=== PATIENT | male | born 1940 | race Caucasian/White ===

== ENCOUNTER 2016-03-10 15:33 | Inpatient (IN) | payer OTHER, MEDICAID ==
[~2016-03-10] VITALS: Ht 185.4 cm; Wt 106.5 kg
[~2016-03-10 15:33] MED LIST: /HCTZ25TA PO; /LABE20TA PO; /TIOT18INH INH; /WARF25TA; /WARF25TA OR; ACET-71 PO; ACET30TAB PO; ALBU17IN2 INH; ALBU83IN INH; AMMONIUM LACTATE 12%; ASCO500T PO; ASPI81TA45; ASPI81TA7 OR; ASPI81TA7 PO; ASPI81TA85 PO; BENA25CA4 PO; CART240C OR; CATA0.1T OR; CATA0.1T PO; CLOBETASOL 0.05%; CODEINE PO; COLC0.6T; COMPLETE PO; DIAB5TAB; DIAB5TAB PO; DULC10SU2 PR; DULC5TAB PO; FERR325T3 PO; FORMOTEROL; FURO20TA2 PO; GLIP10TA6 PO; GLUC1000 PO; GLUC1INJ11 SC; GLUC4CHW PO; GLYB5TA PO; HYDR-4266 PO; HYDR100T13 PO; HYDR12.55 PO; HYDR1CAP25 PO; HYDR25TA7; INSUDET SC; INSUH10VL SC; INSULANT SC; LABE20TAB PO; LASI20TA OR; LEVA500T PO; LOPI600T PO; LOSA50TA20 PO; MIRA3350 PO; MIRALEX; NIFE60TA3 PO; NIFE60TA4; NIFE60TA6 PO; OMEP20CA3 PO; PAME10CA PO; PERC5TAB8; PERF20NE2 INH; PRED10TA PO; PRIL20CA PO; PROV90AE; PULM0.5S INH; SENN8.6T5; SENO8.6T10 PO; SIMV40TA2; SIMV40TA2 PO; SITA50TAB OR; SPIR1CAP INH; SYMB16INH INH; SYMB80AE INH; TERA2CAP PO; TERA5CA OR; TERA5CA PO; TYLE-18 PO; TYLE1TAB5 PO; TYLE325T5 PO; TYLENOL PO; ULOR80TA PO; VITA100041 PO; VITA500C24 PO; VITAMIN PO; VITMTA PO; WARF-18 PO; ZOCO20TA; ZOCO20TA PO; ZOFR40IN IV; dextrose 50% IV; duoneb NEB; mometasone furoate; proventil neb NEB
[2016-03-10] MEDS ORDERED: DEXTROSE 50% 50 ML SYRINGE As Ordered ONE ×3 (15:47→21:40)
[2016-03-10] MEDS ORDERED: ONDANSETRON 4MG/2ML VIAL (J2405) As Ordered ONE (16:31)
[2016-03-10 16:34] LABS: BASO # 0.1 K/mm3 (0.0-0.2); BASO % 1.1 % (0.0-1.0); EOS # 0.4 K/mm3 (0.0-0.50); LARGE UNSTAINED CELL # 0.2 K/mm3 (0.0-0.4); LARGE UNSTAINED CELL % 1.5 % (0.0-4.0); LYMPH # 1.1 K/mm3 (1.5-4.5); LYMPH % 8.5 % (24.0-44.0); MEAN CORPUSCULAR HEMOGLOBIN 26.7 pg (27.0-33.0); MEAN CORPUSCULAR HGB CONC 31.6 g/dl (32.0-36.5); MEAN CORPUSCULAR VOLUME 84.4 fl (80.0-96.0); MONO # 0.5 K/mm3 (0.0-0.8); MONO % 4.7 % (0.0-5.0); NEUTROPHILS # 9.1 K/mm3 (1.8-7.7); NEUTROPHILS % 80.3 % (36.0-66.0); PLATELET COUNT, AUTOMATED 267 k/mm3 (150-450); RED CELL DISTRIBUTION WIDTH 16.4 % (11.5-14.5); WHITE BLOOD COUNT 11.3 K/mm3 (4.0-10.0)
[2016-03-10 16:41] LABS: CALCIUM LEVEL 8.6 MG/DL (8.8-10.2); CREATININE FOR GFR 3.15 MG/DL (0.70-1.30); GLOMERULAR FILTRATION RATE 20.5 (>42); POTASSIUM SERUM 4.6 MEQ/L (3.5-5.1)
[2016-03-10] MEDS ORDERED: GLIP10TA6 PO (18:12)
[2016-03-10] MEDS ORDERED: SIMV20TA2 PO (18:12)
[2016-03-10] MEDS ORDERED: FERR325T3 PO (18:12)
[2016-03-10] MEDS ORDERED: COLC1TAB13 PO (18:12)
[2016-03-10] MEDS ORDERED: ACET650T2 PO (18:12)
[2016-03-10] MEDS ORDERED: ALBU83IN INH (18:12)
[2016-03-10] MEDS ORDERED: FURO20TA2 PO (18:12)
[2016-03-10] MEDS ORDERED: FURO40TA2 PO (18:12)
[2016-03-10] MEDS ORDERED: NOVOINJ3 SC (18:12)
[2016-03-10] MEDS ORDERED: SYMB16INH INH (18:14)
[2016-03-10] MEDS ORDERED: VITA500T88 PO (18:14)
[2016-03-10] MEDS ORDERED: SPIR1CAP INH (18:14)
[2016-03-10] MEDS ORDERED: ALBU17IN2 INH (18:14)
[2016-03-10] MEDS ORDERED: HYDR50CA2 PO (18:15)
[2016-03-10] MEDS ORDERED: HYDR12CA PO (18:16)
[2016-03-10] MEDS ORDERED: LANTINJ4 SC (18:20)
--- NOTE | 2016-03-10 19:01 | REP ---
Abdominal series: Four views. History: Abdominal pain. Findings: AP chest radiograph shows no evidence of infiltrate or free subdiaphragmatic air. Heart is at the upper range of normal in size. The aorta is calcific and tortuous. Supine views of the abdomen demonstrate air and fluid dilation of the stomach. There is some air and stool in a nondistended colon. No small bowel dilation is seen. Cross-table lateral view shows no evidence of free air. A large air fluid level is seen in the stomach. Impression: Gas and fluid dilated stomach. Otherwise negative abdominal series. Postoperative changes on the right. Signed by Naresh Madden MD 03/10/2016 06:53 P
--- NOTE | 2016-03-10 19:23 | ECGEPIP ---
Stationary ECG Study [facility] - ED Test Date: 2016-03-10 Pat Name: DANDRE HUSSEIN Department: Room: - Gender: M Net Architect: brant : 1940 Requested By: Blade Lane Order Number: [id number] Reading MD: Blade Gomez Measurements Intervals [place] Rate: 85 P: 58 CA: 206 QRS: -70 QRSD: 157 T: 68 QT: 422 QTc: 504 Interpretive Statements SINUS RHYTHM LAD RIGHT BUNDLE BRANCH BLOCK LEFT ANTERIOR FASCICULAR BLOCK MINIMAL VOLTAGE CRITERIA FOR LVH, CONSIDER NORMAL VARIANT SIMILAR TO 09/30/15 Electronically Signed On 03-10-2016 19:23:12 EST by Blade Gomez
[2016-03-10] MEDS ORDERED: D10W 1,000 ML IV SCH (19:30)
[2016-03-10] MEDS: D10W 1,000 ML IV SCH (20:00)
[2016-03-10] MEDS ORDERED: GLUCAGON FOR INJ 1 MG VIAL (J1610) SC PRN (20:00)
[2016-03-10] MEDS ORDERED: GLUCOSE 4 GM CHEW TABLET PO PRN (20:00)
[2016-03-10] MEDS ORDERED: ONDANSETRON 4 MG TAB (S0181) PO PRN (20:00)
[2016-03-10] MEDS ORDERED: PERCOCET 5MG/325MG TAB PO PRN (20:00)
[2016-03-10] MEDS ORDERED: DEXTROSE 50% 50 ML SYRINGE IV PRN (20:00)
--- NOTE | 2016-03-10 20:14 | HPEPDOC ---
Medical History and Physical Date of Admission 03/10/2016 History and Physical HISTORY AND PHYSICAL Date of admission: 03/10/2016 PCP: CYNDY Chief complaint: Low blood sugar HPI: 75-year-old male with chronic kidney disease stage III, chronic lung disease from occupational exposure with 3 L home O2, hypertension, gout, coronary artery disease with PA, diastolic CHF, diabetes mellitus type 2, BPH, gastritis, hyperlipidemia, history of pulmonary embolism, history of GI bleed, sleep apnea not on CPAP who presented to the ER because of low blood sugars. He states that 3 days ago he was in his normal health. Yesterday, he began vomiting and noticed that his sugars were in the 60s. Today he has not been vomiting, but he states that he has still been nauseated. He also reports diarrhea for the last 2 days. He states that he did not take any of his insulin yesterday or today, but he did still take his glipizide yesterday. His glucose was initially 38, and even after receiving dextrose, he is still persistently in the 60s and had to be started on D5. I have just been notified by the nursing staff, but despite being on D5, his glucose is 62. He denies any recent sick contacts Past medical history: chronic kidney disease stage III, chronic lung disease from occupational exposure with 3 L home O2, hypertension, gout, coronary artery disease with PA, diastolic CHF, diabetes mellitus type 2, BPH, gastritis , hyperlipidemia, history of pulmonary embolism, history of GI bleed, sleep apnea not on CPAP Past surgical history: Appendectomy with partial colectomy, cholecystectomy, bilateral knee replacement Family history: Coronary artery disease and PA Social history: The patient currently lives with his . He quit smoking approximately 40 years ago. He denies any alcohol or drug use. Allergies: No known drug allergies Review of systems: General: Negative for fever and chills. Eyes: Negative for vision changes and ocular discharge ENT: Positive for sore throat. Negative for nose bleed. Cardiovascular: Negative for chest pain and palpitations. Respiratory: Positive for shortness of breath. Negative for cough GI: Positive for nausea, vomiting, diarrhea Musculoskeletal: Positive for chronic back pain Skin: Negative for rash Neuro: Positive for dizziness. Negative for headache Psych: Negative for depression and suicidal ideation Endocrine: Negative for polyuria : Negative for dysuria Heme: Negative for bruising and bleeding Home meds: See below Physical exam: Vital signs: Blood pressure 127/61, HR 84, temperature 97.4, O2 sat 99% on 3 L, RR 18 Gen.: awake, alert, no acute distress Eyes: Extraocular movements intact, normal sclera ENT: Moist mucous membranes Cardiovascular: RRR, no murmurs rubs or gallops Lungs: clear to auscultation bilaterally, no rales, rhonchi, or wheeze Abdomen: Soft, normal BS, distended, diffuse TTP Musculoskeletal: normal range of motion Extremities: No peripheral edema Neuro: alert and oriented 3, normal speech, no focal deficits Psych: Normal mood with congruent affect Labs and radiology: See below BUN 55, creatinine 3.15 White count 11.3 Hemoglobin 9.9 Assessment and plan: 75-year-old male with chronic kidney disease stage III, chronic lung disease from occupational exposure with 3 L home O2, hypertension, gout, coronary artery disease with PA, diastolic CHF, diabetes mellitus type 2, BPH, gastritis , hyperlipidemia, history of pulmonary embolism, history of GI bleed, sleep apnea not on CPAP who presented to the ER because of low blood sugars. He is admitted with hypoglycemia, as well as acute on chronic kidney disease and dehydration. 1. Acute on chronic kidney disease stage III: The patient's baseline creatinine is around 2. His creatinine upon admission is greater than 3. I suspect that this is prerenal secondary to his diarrhea and vomiting. We'll hydrate him and recheck his creatinine in the morning. We will hold his home Lasix, hydrochlorothiazide, ARB. 2. Diarrhea and vomiting: I suspect that this is secondary to a viral illness. The patient is afebrile. He is a mildly elevated white count at 11.3, but upon review of the EMR, he is noted to always have a mildly elevated white count in the 11-13 range. We will check a GI panel and blood cultures. The patient will be on a full liquid diet, advancing as tolerated. 3. Hypoglycemia: Likely secondary to patient's decreased by mouth intake with his recent diarrhea and vomiting, coupled with the fact that he has still been taking his glipizide and has impaired renal function. We are currently holding his glipizide and insulin. Despite being on D5 in the ER, his glucose is still in the 60s. We will transition the patient to D10W at 75 mL an hour, and continue to check regular fingersticks. 4. Chronic lung disease from occupational exposure with 3 L home O2: The patient is currently stable on his home oxygen. We will continue home Symbicort , albuterol, Spiriva. 5. Hypertension: The patient has hypertension that is noted to be extremely difficult to control. We will continue the patient's home clonidine, hydralazine , labetalol, Procardia, and terazosin. Given his impaired renal function, we'll be holding his home glipizide, hydrochlorothiazide, and ARB. 6. Coronary artery disease with PA: The patient does not have any chest pain currently. We'll continue the patient's home beta nel and aspirin. 7. Chronic diastolic CHF: The patient is currently compensated. Given his dehydration, we'll be holding his home Lasix. We will have to monitor his fluid status closely so as not to tip him into failure. 8. Diabetes mellitus type 2: Currently holding the patient's home glipizide, long acting insulin, and short acting insulin. We will be checking fingersticks with meals and at bedtime. When the patient's glucoses began to rebound, we can begin to add back sliding scale insulin, as well as home medications. 9. Anemia: This appears to be a chronic issue, and I suspect that it is at least in part secondary to his chronic renal disease. The patient's baseline hemoglobin appears to be in the 9-10 range. He is currently at his baseline. We will continue to monitor. DVT prophylaxis: SCDs Dispo: full code CODE STATUS: Admit as an inpatient to the service of Dr. Cruz Vital Signs see above Laboratory Data Labs 24H Laboratory Tests 2 03/10/16 15:42: Bedside Glucose (Misc Panel) 37*L 03/10/16 15:48: Anion Gap 12, White Blood Count 11.3H, Red Blood Count 3.70L, Hemoglobin 9.9L, Hematocrit 31.2L, Mean Corpuscular Volume 84.4, Mean Corpuscular Hemoglobin 26.7L, Mean Corpuscular Hemoglobin Concent 31.6L, Red Cell Distribution Width 16.4H, Platelet Count 267, Neutrophils (%) (Auto) 80.3H, Lymphocytes (%) (Auto) 8.5L, Monocytes (%) (Auto) 4.7, Eosinophils (%) (Auto) 4.0H, Basophils (%) (Auto ) 1.1H, Neutrophils # (Auto) 9.1H, Lymphocytes # (Auto) 1.1L, Monocytes # (Auto ) 0.5, Eosinophils # (Auto) 0.4, Basophils # (Auto) 0.1, Blood Urea Nitrogen 55H , Creatinine 3.15H, Sodium Level 140, Potassium Level 4.6, Chloride Level 103, Carbon Dioxide Level 25, Calcium Level 8.6L, Glomerular Filtration Rate 20.5L, Large Unclassified Cells # 0.2, Large Unclassified Cells % 1.5 03/10/16 15:57: Bedside Glucose (Misc Panel) 147H 03/10/16 16:58: Bedside Glucose (Misc Panel) 68L 03/10/16 17:38: Bedside Glucose (Misc Panel) 48L 03/10/16 18:28: Bedside Glucose (Misc Panel) 91 03/10/16 19:04: Bedside Glucose (Misc Panel) 62L 03/10/16 19:48: Bedside Glucose (Misc Panel) 58L CBC/BMP Laboratory Tests 03/10/16 15:48 Calcium Level 8.6 L, Red Blood Count 3.70 L, Mean Corpuscular Volume 84.4, Mean Corpuscular Hemoglobin 26.7 L, Mean Corpuscular Hemoglobin Concent 31.6 L, Red Cell Distribution Width 16.4 H, Neutrophils (%) (Auto) 80.3 H, Lymphocytes (%) ( Auto) 8.5 L, Monocytes (%) (Auto) 4.7, Eosinophils (%) (Auto) 4.0 H, Basophils ( %) (Auto) 1.1 H, Neutrophils # (Auto) 9.1 H, Lymphocytes # (Auto) 1.1 L, Monocytes # (Auto) 0.5, Eosinophils # (Auto) 0.4, Basophils # (Auto) 0.1 FSBS Laboratory Tests Test 03/10/16 15:42 03/10/16 15:57 03/10/16 16:58 03/10/16 17:38 Range/Units Bedside Glucose (Misc Panel) 37 147 68 48 83-110 MG/DL Test 03/10/16 18:28 03/10/16 19:04 03/10/16 19:48 Range/Units Bedside Glucose (Misc Panel) 91 62 58 83-110 MG/DL Home Medications Scheduled Acetaminophen (Acetaminophen ER) 650 Mg Tab 650 MG PO BID Albuterol Sulfate (Albuterol Sulfate) 2.5 Mg/3 Ml Nebu 2.5 MG INH TID Ascorbic Acid (Vitamin C) 500 Mg Tab 500 MG PO DAILY Aspirin (Aspirin) 81 Mg Tab 81 MG PO DAILY Budesonide/Formoterol (Symbicort 160-4.5 Mcg/Act) 60 Puff/Inhaler Aers 2 PUFF INH BID Cholecalciferol (Vitamin D3) 1,000 Unit Cap 1,000 UNIT PO DAILY Clonidine Hydrochloride (Catapres) 0.1 Mg Tab 0.1 MG PO BID Ferrous Sulfate (Ferrous Sulfate) 325 Mg Tab 325 MG PO BID Furosemide (Furosemide) 20 Mg Tab 20 MG PO 4XWK TUES,TH,FRI,SUN Furosemide (Furosemide) 40 Mg Tab 40 MG PO 3XW MON,WED,FRI Glipizide (Glipizide) 10 Mg Tab 10 MG PO TID Hydralazine HCl (Hydralazine HCl) 25 Mg Tab 25 MG PO BID Hydrochlorothiazide (Hydrochlorothiazide) 12.5 Mg Cap 12.5 MG PO DAILY Hydroxyzine Pamoate (Hydroxyzine Pamoate) 50 Mg Cap 50 MG PO QHS Insulin Aspart (Novolog Flexpen) 100 Unit/Ml Inj 12 UNITS SC TID Insulin Glargine (Lantus Solostar) 100 Unit/Ml Inj 36 UNITS SC QHS Labetalol HCl (Labetalol HCl) 200 Mg Tab 200 MG PO BID Losartan Potassium (Losartan Potassium) 50 Mg Tab 50 MG PO DAILY Multivitamins *[facility] STOCKED* (Thera M Plus *[facility] STOCKED*) 1 Tab Tab 1 TAB PO DAILY Nifedipine (Nifedipine ER) 60 Mg Tab 120 MG PO DAILY Omeprazole (Omeprazole) 20 Mg Cap 20 MG PO DAILY Simvastatin (Simvastatin) 20 Mg Tab 20 MG PO QHS Terazosin HCl (Terazosin HCl) 5 Mg Cap 5 MG PO QHS Tiotropium Organ Monohydrate (Spiriva Handihaler) 18 Mcg Cap 1 INHALATION INH DAILY Scheduled PRN (Colchicine) 0.6 Mg Tab 0.6 MG PO PRN PRN PRN GOUT Acetaminophen/Codeine (Tylenol/Codeine #3) Tab 1 TAB PO Q6H PRN PRN PAIN Albuterol Sulfate (Proventil Hfa) 167 Puff/6.7 Gm Aers 2 PUFFS INH Q4H PRN PRN SHORTNESS OF BREATH Allergies Coded Allergies: No Known Allergies (Verified Allergy, Unknown, 06/02/09) BONNY PAULA Mar 10, 2016 20:14
[2016-03-10] MEDS: SYMBICORT 160/4.5MCG INHALER 6GM INH SCH ×2 (21:00→23:58)
--- NOTE | 2016-03-10 22:14 | EDDOCDS ---
Nurse's Notes [facility] Name: Dandre Hussein Age: 75 yrs Sex: Male : 1940 Arrival Date: 03/10/2016 Time: 15:33 Bed 10 Private MD: Diagnosis: Dehydration;Other viral enteritis;Acute kidney failure;Drug-induced hypoglycemia without coma-glipizide;Type 2 diabetes mellitus Presentation: 03/10 15:51 Presenting complaint: EMS states: ems called for low blood sugars - found pt with blood pml glucose of 71 - pt states he is a type 1 diabetic and has had 2 days of diarrhea and lower than normal blood glucose. EMS unable to establish IV access, PO glucose solution with no change, glucose 38 on arrival to [facility]. pt alert and oriented. Adult Sepsis Screening: The patient does not have new or worsening altered mentation. Patient's respiratory rate is less than 22. Systolic blood pressure is greater than 100. Patient has a qSOFA score of 0- Negative Sepsis Screen. Suicide/Homicide risk assessment- the patient denies having any suicidal and/or homicidal ideations and does not present with any other emotional, behavioral or mental health complaints. 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 Transition of care: patient was not received from another setting of care. 15:51 Acuity: MONA Level 3 pml 15:51 Method Of Arrival: Ambulance pml Triage Assessment: 15:51 General: Appears in no apparent distress, comfortable, Behavior is appropriate for age, pml cooperative. Pain: Denies pain. The patient is triaged at the bedside. See Assessment in Nurses Notes section of ED record. Neurological: Level of Consciousness is awake, alert, Oriented to person, place, time. Cardiovascular: Capillary refill < 3 seconds Rhythm is sinus rhythm No ectopy. Respiratory: Airway is patent Respiratory effort is even, unlabored, Respiratory pattern is regular, symmetrical. GI: Abdomen is non- distended obese, Abd is soft X 4 quads Abd is tender to palpation in left upper quadrant and left lower quadrant Reports diarrhea, tolerance of fluids, x 4 over last 2 days. Derm: Skin is pink, warm & dry. Historical: - Allergies: no known allergies; - Home Meds: 1. Oxygen 3LNC Continuous 2. Tylenol Arthritis Pain 650 mg oral TbER 1 tabs twice a day (Last dose: 03/10/2016) 3. albuterol sulfate 2.5 mg /3 mL (0.083 %) Inhl nebu 3 mL 3 times per day (Last dose: 03/10/2016 12:00) 4. aspirin 81 mg Oral TbEC 1 tab once daily (Last dose: 03/10/2016) 5. clonidine HCl 0.1 mg Oral tab 1 tab 2 times per day (Last dose: 03/10/2016) 6. colchicine 0.6 mg Oral tab as needed 7. Complete 50+ oral 1 tab daily (Last dose: 03/10/2016) 8. ferrous sulfate 325 mg (65 mg iron) Oral tab twice a day (Last dose: 03/10/2016) 9. furosemide 40 mg oral tab 1 tab Mon, Wed, Fri (Last dose: 03/08/2016) 10. hydralazine 25 mg Oral tab 1 tab 2 times per day (Last dose: 03/10/2016) 11. hydrochlorothiazide 12.5 mg Oral cap 1 cap once daily (Last dose: 03/10/2016) 12. hydroxyzine pamoate 50 mg oral cap 1 cap nightly (Last dose: 03/09/2016) 13. labetalol 200 mg Oral tab 1 tab 2 times per day (Last dose: 03/10/2016) 14. losartan 50 mg oral tab 1 tab once daily (Last dose: 03/10/2016) 15. nifedipine 60 mg Oral tr24 2 tabs once daily (Last dose: 03/10/2016) 16. omeprazole 20 mg Oral cpDR 1 cap once daily (Last dose: 03/10/2016) 17. Proventil 90 mcg/actuation inhalation aero 2 puffs as needed 18. simvastatin 40 mg Oral tab 0.5 tab nightly (Last dose: 03/09/2016) 19. Spiriva with HandiHaler 18 mcg Inhl CpDv 1 cap once daily (Last dose: 03/10/2016) 20. Symbicort 160-4.5 mcg/actuation inhalation HFAA 2 puffs 2 times per day (Last dose: 03/10/2016) 21. terazosin 5 mg oral cap nightly (Last dose: 03/09/2016) 22. acetaminophen-codeine 300-60 mg Oral tab 1 tab as needed 23. Vitamin C 500 mg Oral tab 500 mg daily (Last dose: 03/10/2016) 24. Vitamin D3 1,000 unit oral tab daily (Last dose: 03/10/2016) 25. glipizide 10 mg Oral tab three times a day (Last dose: 03/10/2016) 26. Lantus 100 unit/mL Sub-Q soln 36 unit daily (Last dose: 03/08/2016) 27. Novolog 100 unit/mL Sub-Q soln 12 unit three times a day (Last dose: 03/08/2016) - PMHx: CHF; COPD; Diabetes - IDDM: controlled; GERD; Gout; High Cholesterol; Hypertension; - PSHx: Colon Resection; Appendectomy; Cholecystectomy; bilateral knee replacements; - The history from nurses notes was reviewed: and I agree with what is documented. - Social history: Smoking status: Patient states former smoker of tobacco. No barriers to communication noted, The patient speaks fluent Hungarian, Speaks appropriately for age. - Family history: Not pertinent. - : The pt / caregiver states he / she is not on anticoagulants. Home medication list is obtained from the patient. - Hospitalizations: : No recent hospitalization is reported. - Exposure Risk Screening:: None identified. - Immunization history:: All immunizations up-to-date. - Social history:: the patient is a former smoker, the patient formerly used alcohol. Screenin:54 Screening information is obtained from the patient. Fall risk: No risks identified. pml Assistance ADL's: requires no assistance with activities of daily living. Abuse/DV Screen: The patient / caregiver reports he/she is: not in a situation that causes fear, pain or injury. Nutritional screening: No deficits noted. Advance Directives: Currently, there is no health care proxy. home support is adequate. Assessment: 15:54 General: see triage note. pml 17:02 General: Appears in no apparent distress, Behavior is appropriate for age, cooperative. pml Pain: Denies pain. Neurological: Level of Consciousness is awake, alert, Oriented to person, place, time. Cardiovascular: Capillary refill < 3 seconds Rhythm is sinus rhythm No ectopy. Respiratory: Airway is patent Respiratory effort is even, unlabored. Derm: Skin is pink, warm & dry. 17:02 General: blood glucose 68 - MD Jason snider, PO orange juice provided as per MD Tirado pml orders. 17:35 General: reopeat blood glucose 48 - MD Chafe aware, new orders obtained and pml administered as indicated on emar. 18:29 General: Hospitalist in to assess pt. ld5 19:16 General: Appears in no apparent distress, comfortable, Behavior is cooperative, mlc pleasant, Reports fatigue for. Pain: Denies pain. Neurological: Level of Consciousness is awake, alert, Oriented to person, place, time. Respiratory: Airway is patent Respiratory effort is even, unlabored, Respiratory pattern is regular. Derm: Skin is pink, warm & dry. 19:20 General: Dr. Iraheta made aware of FS of 62. Order obtained. . mlc 19:31 Reassessment: Patient appears in no apparent distress at this time. Patient denies pain mlc at this time. IV fluids infusing per order . 19:50 Reassessment: Patient appears in no apparent distress at this time. Patient denies pain mlc at this time. no changes since prior . 20:30 Reassessment: Dr. Iraheta notified of FS of 60. pt given orange juice. . mlc 21:03 Reassessment: pt repositioned in bed, pt c/o of feeling uncomfortable in bed. pt mlc refuses to sit up in bed due to back pain. pt refusing to eating jello. . 21:18 Reassessment: pt given OJ, drinking juice. pt offers no complaints. . mlc 21:44 Reassessment: Patient appears in no apparent distress at this time. Patient denies pain mlc at this time. pt offers no complaints. pt medicated per order. resp easy/unlabored. IV fluids infusing per order. 22:07 General: Appears in no apparent distress, comfortable, Behavior is cooperative. mlc Neurological: Level of Consciousness is awake, alert, Oriented to person, place, time. Respiratory: Airway is patent Respiratory effort is even, unlabored, Respiratory pattern is regular. Derm: Skin is pink, warm & dry. Vital Signs: 15:42 BP 124 / 71 (auto/); pml 15:44 Pulse 86 MON; Pulse Ox 92% ; pml 15:45 BP 124 / 71; Pulse 88; Resp 18; Temp 97.4(O); Pulse Ox 96% on 3 lpm NC; Pain 0/10; nb2 15:55 Weight 113.4 kg; Height 6 ft. 1 in. (185.42 cm); pml 15:57 Pulse 84 MON; Pulse Ox 98% ; pml 15:57 BP 142 / 64 (auto/); pml 16:12 Pulse 84 MON; Pulse Ox 99% ; pml 16:12 BP 144 / 58 (auto/); pml 16:27 Pulse 82 MON; Pulse Ox 99% ; pml 16:27 BP 141 / 65 (auto/); pml 16:42 Pulse 82 MON; Pulse Ox 99% ; pml 16:42 BP 133 / 68 (auto/); pml 16:57 Pulse 88 MON; Pulse Ox 100% ; pml 16:57 BP 133 / 62 (auto/); pml 17:12 Pulse 84 MON; Pulse Ox 99% ; pml 17:12 BP 143 / 68 (auto/); pml 17:35 Pulse 86 MON; Pulse Ox 98% ; pml 17:36 BP 138 / 63 (auto/); pml 17:42 Pulse 82 MON; Pulse Ox 99% ; pml 17:42 BP 138 / 65 (auto/); pml 17:57 Pulse 84 MON; Pulse Ox 100% ; pml 17:57 BP 126 / 53 (auto/); pml 18:12 Pulse 78 MON; Pulse Ox 100% ; pml 18:12 BP 127 / 58 (auto/); pml 18:27 Pulse 84 MON; Pulse Ox 100% ; pml 18:27 BP 127 / 61 (auto/); pml 18:42 Pulse 82 MON; Pulse Ox 99% ; pml 18:42 BP 127 / 58 (auto/); pml 18:57 Pulse 80 MON; Pulse Ox 99% ; mlc 18:57 BP 120 / 59 (auto/); mlc 19:12 BP 117 / 58 (auto/); mlc 19:12 Pulse 78 MON; Pulse Ox 99% ; mlc 19:27 Pulse 82 MON; Pulse Ox 100% ; mlc 19:27 BP 118 / 56 (auto/); mlc 19:42 BP 111 / 55 (auto/); mlc 19:42 Pulse 82 MON; Pulse Ox 99% ; mlc 19:57 Pulse 78 MON; Pulse Ox 100% ; mlc 19:57 BP 118 / 58 (auto/); mlc 20:12 BP 117 / 56 (auto/); mlc 20:12 Pulse 80 MON; Pulse Ox 100% ; mlc 20:27 Pulse 78 MON; Pulse Ox 99% ; mlc 20:27 BP 112 / 53 (auto/); mlc 21:01 Pulse 80 MON; Pulse Ox 100% ; mlc 21:13 BP 110 / 53 (auto/); mlc 21:13 Pulse 88 MON; Pulse Ox 99% ; mlc 21:57 BP 131 / 61 (auto/); mlc 21:57 Pulse 80 MON; Pulse Ox 99% ; mlc 22:10 BP 125 / 59; Pulse 87; Resp 18; Temp 97.1; Pulse Ox 99% on 2 lpm NC; Pain 0/10; mlc 15:55 Body Mass Index 32.98 (113.40 kg, 185.42 cm) pml Vitals: 15:45 Log In Time N/A - ambulance arrival. nb2 ED Course: 15:34 Patient visited by Nayeli Quiñonez PCA. ar3 15:34 Patient moved to Waiting ar3 15:41 Maxine Gordon,RN is Primary Nurse. ar3 15:42 Patient moved to 10 ar3 15:45 Placed in gown. Bed in low position. Call light in reach. Side rails up X2. Cardiac nb2 monitor on. Pulse ox on. NIBP on. 15:46 Patient visited by Nita Hand. nb2 15:52 Triage Initiated pml 15:54 The patient / caregiver is instructed regarding the plan of care and ED course. pml 15:54 Inserted peripheral IV: 20gauge IV in left antecubital area and blood collected. pml Patient tolerated the procedure well. 15:55 Patient visited by Maxine Gordon RN. pml 16:00 Blade Gomez MD is Attending Physician. pc 16:09 Fingerstick Blood Sugar Sent. pml 16:27 Patient visited by Blade Gomez MD. pc 16:50 EKG done. (by ED staff). Reviewed by Blade Gomez MD. nb2 17:03 Patient visited by Maxine Gordon RN. pml 17:26 Patient visited by Nita Hand. nb2 17:26 Patient visited by Nita Hand. nb2 17:50 Patient visited by Maxine Gordon RN. pml 18:30 Patient visited by Simona White RN. ld5 18:50 Lorna Iraheta is Hospitalizing Provider. pc 18:51 Patient visited by Maxine Gordon,CECILIO. pml 19:00 Ronit Martinez,CECILIO is Primary Nurse. mlc 19:03 Patient visited by Alexys Pascual PCA. kb5 19:12 Written Provider Order was scanned into [employer] and attached to record. ml3 19:14 Abdomen, Flat\E\Upright,PA Chest Returned. EDMS 19:21 Patient visited by Ronit Martinez RN. mlc 19:32 Patient visited by Ronit Martinez RN. mlc 19:49 EKG-ADULT Returned. EDMS 19:51 Patient visited by Ronit Martinez RN. mlc 20:32 [facility] [place] was scanned into [employer] and attached to record. ks16 21:03 Patient visited by Ronit Martinez RN. mlc 21:45 Patient visited by Ronit Martinez RN. mlc 21:45 No procedures done that require assistance. mlc 22:08 Patient visited by Ronit Martinez RN. mlc Administered Medications: 15:50 Drug: D50W 50 ml [dextrose 50 % in water (D50W) intravenous solution (50 mL)] Route: pml IVP; Site: left antecubital; 16:35 Drug: Ondansetron 4 mg [ondansetron HCl 2 mg/mL intravenous solution (2 mL)] Route: pml IVP; Site: left antecubital; 16:35 Drug: NS 0.9% 500 ml [sodium chloride 0.9 % injection solution] Route: IV; Rate: bolus; pml Site: left antecubital; 17:40 Drug: D50W 50 ml [dextrose 50 % in water (D50W) intravenous solution (50 mL)] Route: pml IVP; Site: left antecubital; 17:49 Drug: D5-NS 1000 ml [dextrose 5 % and 0.9 % sodium chloride intravenous solution] pml Route: IV; Rate: 100 mL/hr; Site: left antecubital; 19:31 Drug: D10 in Water 1000 ml [dextrose 10 % in water (D10W) intravenous solution] Route: mlc IV; Rate: 100 mL/hr; Site: left antecubital; 21:44 Drug: D50W 25 ml [dextrose 50 % in water (D50W) intravenous syringe (25 mL)] Route: mlc IVP; Site: left antecubital; Point of Care Testing: Blood Glucose: 18:29 Blood Glucose: 91 mg/dL; ld5 19:07 Blood Glucose: 62 mg/dL; mlc 19:50 Blood Glucose: 58 mg/dL; mlc 21:08 Blood Glucose: 51 mg/dL; mlc 21:37 Blood Glucose: 50 mg/dL; mlc 22:06 Blood Glucose: 88 mg/dL; mlc Ranges: Order Results: Lab Order: Fingerstick Blood Sugar; [facility] 03/10/16 15:42 Test: BEDSIDE GLUCOSE; Value: 37; Range: 83-110; Abnormal: Critical Low; Units: MG/DL; Status: F Lab Order: Fingerstick Blood Sugar; [facility] 03/10/16 15:57 Test: BEDSIDE GLUCOSE; Value: 147; Range: 83-110; Abnormal: Above high normal; Units: MG/DL; Status: F Lab Order: CBC with Diff; [facility] 03/10/16 15:48 Test: WHITE BLOOD COUNT; Value: 11.3; Range: 4.0-10.0; Abnormal: Above high normal; Units: K/mm3; Status: F Test: RED BLOOD COUNT; Value: 3.70; Range: 4.30-6.10; Abnormal: Below low normal; Units: M/mm3; Status: F Test: HEMOGLOBIN; Value: 9.9; Range: 14.0-18.0; Abnormal: Below low normal; Units: g/dl; Status: F Test: HEMATOCRIT; Value: 31.2; Range: 42.0-52.0; Abnormal: Below low normal; Units: %; Status: F Test: MEAN CORPUSCULAR VOLUME; Value: 84.4; Range: 80.0-96.0; Units: fl; Status: F Test: MEAN CORPUSCULAR HEMOGLOBIN; Value: 26.7; Range: 27.0-33.0; Abnormal: Below low normal; Units: pg; Status: F Test: MEAN CORPUSCULAR HGB CONC; Value: 31.6; Range: 32.0-36.5; Abnormal: Below low normal; Units: g/dl; Status: F Test: RED CELL DISTRIBUTION WIDTH; Value: 16.4; Range: 11.5-14.5; Abnormal: Above high normal; Units: %; Status: F Test: PLATELET COUNT, AUTOMATED; Value: 267; Range: 150-450; Units: k/mm3; Status: F Test: NEUTROPHILS %; Value: 80.3; Range: 36.0-66.0; Abnormal: Above high normal; Units: %; Status: F Test: LYMPH %; Value: 8.5; Range: 24.0-44.0; Abnormal: Below low normal; Units: %; Status: F Test: MONO %; Value: 4.7; Range: 0.0-5.0; Units: %; Status: F Test: EOS %; Value: 4.0; Range: 0.0-3.0; Abnormal: Above high normal; Units: %; Status: F Test: BASO %; Value: 1.1; Range: 0.0-1.0; Abnormal: Above high normal; Units: %; Status: F Test: LARGE UNSTAINED CELL %; Value: 1.5; Range: 0.0-4.0; Units: %; Status: F Test: NEUTROPHILS #; Value: 9.1; Range: 1.8-7.7; Abnormal: Above high normal; Units: K/mm3; Status: F Test: LYMPH #; Value: 1.1; Range: 1.5-4.5; Abnormal: Below low normal; Units: K/mm3; Status: F Test: MONO #; Value: 0.5; Range: 0.0-0.8; Units: K/mm3; Status: F Test: EOS #; Value: 0.4; Range: 0.0-0.50; Units: K/mm3; Status: F Test: BASO #; Value: 0.1; Range: 0.0-0.2; Units: K/mm3; Status: F Test: LARGE UNSTAINED CELL #; Value: 0.2; Range: 0.0-0.4; Units: K/mm3; Status: F Lab Order: MED Profile; SPEC'M 03/10/16 15:48 Test: GLUCOSE, FASTING; Value: 34; Range: 83-110; Abnormal: Critical Low; Units: MG/DL; Status: F Test: BLOOD UREA NITROGEN; Value: 55; Range: 7-18; Abnormal: Above high normal; Units: MG/DL; Status: F Test: CREATININE FOR GFR; Value: 3.15; Range: 0.70-1.30; Abnormal: Above high normal; Units: MG/DL; Status: F Test: GLOMERULAR FILTRATION RATE; Value: 20.5; Range: >42; Abnormal: Below low normal; Status: F Test: SODIUM LEVEL; Value: 140; Range: 136-145; Units: MEQ/L; Status: F Test: POTASSIUM SERUM; Value: 4.6; Range: 3.5-5.1; Units: MEQ/L; Status: F Test: CHLORIDE LEVEL; Value: 103; Range: 98-107; Units: MEQ/L; Status: F Test: CARBON DIOXIDE LEVEL; Value: 25; Range: 21-32; Units: MEQ/L; Status: F Test: ANION GAP; Value: 12; Range: 8-16; Units: MEQ/L; Status: F Test: CALCIUM LEVEL; Value: 8.6; Range: 8.8-10.2; Abnormal: Below low normal; Units: MG/DL; Status: F Test Note: ; Units are mL/min/1.73 m2 Chronic Kidney Disease Staging per NKF: Stage I & II GFR >=60 Normal to Mildly Decreased Stage III GFR 30-59 Moderately Decreased Stage IV GFR 15-29 Severely Decreased Stage V GFR <15 Very Little GFR Left ESRD GFR <15 on SITE LEADER Lab Order: Fingerstick Blood Sugar; [facility] 03/10/16 16:58 Test: BEDSIDE GLUCOSE; Value: 68; Range: 83-110; Abnormal: Below low normal; Units: MG/DL; Status: F Lab Order: Fingerstick Blood Sugar; [facility] 03/10/16 17:38 Test: BEDSIDE GLUCOSE; Value: 48; Range: 83-110; Abnormal: Below low normal; Units: MG/DL; Status: F Lab Order: Fingerstick Blood Sugar; [facility] 03/10/16 18:28 Test: BEDSIDE GLUCOSE; Value: 91; Range: 83-110; Units: MG/DL; Status: F Lab Order: Fingerstick Blood Sugar; [facility] 03/10/16 19:04 Test: BEDSIDE GLUCOSE; Value: 62; Range: 83-110; Abnormal: Below low normal; Units: MG/DL; Status: F Test Note: ; Doctor Notified Lab Order: Fingerstick Blood Sugar; [facility] 03/10/16 19:48 Test: BEDSIDE GLUCOSE; Value: 58; Range: 83-110; Abnormal: Below low normal; Units: MG/DL; Status: F Test Note: ; Doctor Notified Lab Order: Fingerstick Blood Sugar; SPEC'M 03/10/16 21:07 Test: BEDSIDE GLUCOSE; Value: 51; Range: 83-110; Abnormal: Below low normal; Units: MG/DL; Status: F Test Note: ; RN Notified Dr Order not to Draw Lab Order: Fingerstick Blood Sugar; SPEC'M 03/10/16 21:36 Test: BEDSIDE GLUCOSE; Value: 50; Range: 83-110; Abnormal: Below low normal; Units: MG/DL; Status: F Radiology Order: Abdomen, Flat\E\Upright,PA Chest Test: Abdomen, Flat\E\Upright,PA Chest REASON FOR EXAMINATION: Abdomen Pain; Abdominal series: Four views.; ; History: Abdominal pain.; ; Findings: AP chest radiograph shows no evidence of infiltrate or free; subdiaphragmatic air. Heart is at the upper range of normal in size. The aorta; is calcific and tortuous.; ; Supine views of the abdomen demonstrate air and fluid dilation of the stomach.; There is some air and stool in a nondistended colon. No small bowel dilation is; seen. Cross-table lateral view shows no evidence of free air. A large air fluid; level is seen in the stomach.; ; Impression:; ; Gas and fluid dilated stomach. Otherwise negative abdominal series.; Postoperative changes on the right.; ; ; Signed by; Naresh Madden MD 03/10/2016 06:53 P; Radiology Order: EKG-ADULT Test: EKG-ADULT REASON FOR EXAMINATION: acute renal failure; Stationary ECG Study; [facility] - ED; ; Test Date: 2016-03-10; Pat Name: DANDRE HUSSEIN Department:; Room: -; Gender: M [employer]: brant; : 1940 Requested By: Blade Lane; Order Number: [id number] Reading MD: Blade Gomez; Measurements; Intervals [place]; Rate: 85 P: 58; NE: 206 QRS: -70; QRSD: 157 T: 68; QT: 422; QTc: 504; Interpretive Statements; SINUS RHYTHM; LAD; RIGHT BUNDLE BRANCH BLOCK; LEFT ANTERIOR FASCICULAR BLOCK; MINIMAL VOLTAGE CRITERIA FOR LVH, CONSIDER NORMAL VARIANT; SIMILAR TO 7/30/16; Electronically Signed On 03-10-2016 19:23:12 EST by Blade Gomez; Outcome: 18:51 Decision to Hospitalize by Provider. pc 21:45 No special radiology studies were completed. mlc 22:07 Discharge Assessment: Patient awake, alert and oriented x 3. No cognitive and/or mlc functional deficits noted. Patient verbalized understanding of disposition instructions. patient administered narcotics - no. The following High Risk Discharge criteria are identified: None. Admitted to ICU accompanied by nurse, accompanied by tech, via stretcher, on monitor, with chart. Condition: stable. Admission hand-off: Report called to CECILIO Darden. Property :Personal belongings accompany Pt. 22:12 [place] [facility] [place] Signatures: Dispatcher [employer] EDMS Blade Gomez MD MD Ame Valdes, Sample Display Preparer Unit ml3 Alexys Pascual, COAT TAILOR COAT TAILOR kb5 Nayeli Quiñonez, COAT TAILOR COAT TAILOR ar3 Simona White RN RN ld5 Maxine Gordon RN RN pml Booth, Mandy, RN RN [facility] [place] Priya Nguyen, Reg Reg [id number] Nita Hand2 Corrections: (The following items were deleted from the chart) 16:03 16:00 Home Meds: glipizide 10 mg Oral tab three times a day; ld5 ld5 16:03 16:00 Home Meds: Lantus 100 unit/mL Sub-Q soln 36 unit daily; ld5 ld5 16:03 16:00 Home Meds: Novolog 100 unit/mL Sub-Q soln 12 unit three times a day; ld5 ld5 17:26 16:30 EKG done. (by ED staff). Reviewed by Blade Gomez MD nb2 nb2 MTDD
--- NOTE | 2016-03-10 22:15 | EDDOCDS ---
Physician Documentation [facility] Name: Davin Snyder Age: 75 yrs Sex: Male : 1940 Arrival Date: 03/10/2016 Time: 15:33 Bed 10 Private MD: Disposition: 03/10 18:45 Critical Care:. pc Disposition: 03/10/16 18:51 Hospitalization ordered by Lorna Iraheta for Inpatient Admission. Preliminary diagnosis are Dehydration, Other viral enteritis, Acute kidney failure, Drug-induced hypoglycemia without coma - glipizide, Type 2 diabetes mellitus. - Bed requested for M ICU. - Status is Inpatient Admission. mlc - Condition is Stable. - Problem is new. - Symptoms have improved. HPI: 16:29 This 75 yrs old Male presents to ER via Ambulance with complaints of Low pc Blood Sugar. 16:29 The history is obtained from the patient. He has n/v/d for 2 days, with only diarrhea pc today. He has not had any fevers or chills, Resp or symptoms. He did not take his insulin over the past 2 days for fear of low sugars. He did, however, take his glipizide, and became lethargic today and EMS was called. He was found to have a FSBS of 71 but on arrival, it was only 38. He was alert but lethargic. He was given D50 with improvement of his mentation and his FSBS was 137. His only complaint is of feeling "washed out". He denies any abdominal pain. At their worst, the symptoms were moderate. In the emergency department, the symptoms are unchanged. The patient has not experienced similar symptoms in the past. The patient has been recently seen by their primary care provider, for a routine, regularly scheduled appointment. Historical: - Allergies: no known allergies; - Home Meds: 1. Oxygen 3LNC Continuous 2. Tylenol Arthritis Pain 650 mg oral TbER 1 tabs twice a day (Last dose: 03/10/2016) 3. albuterol sulfate 2.5 mg /3 mL (0.083 %) Inhl nebu 3 mL 3 times per day (Last dose: 03/10/2016 12:00) 4. aspirin 81 mg Oral TbEC 1 tab once daily (Last dose: 03/10/2016) 5. clonidine HCl 0.1 mg Oral tab 1 tab 2 times per day (Last dose: 03/10/2016) 6. colchicine 0.6 mg Oral tab as needed 7. Complete 50+ oral 1 tab daily (Last dose: 03/10/2016) 8. ferrous sulfate 325 mg (65 mg iron) Oral tab twice a day (Last dose: 03/10/2016) 9. furosemide 40 mg oral tab 1 tab Mon, Wed, Fri (Last dose: 03/08/2016) 10. hydralazine 25 mg Oral tab 1 tab 2 times per day (Last dose: 03/10/2016) 11. hydrochlorothiazide 12.5 mg Oral cap 1 cap once daily (Last dose: 03/10/2016) 12. hydroxyzine pamoate 50 mg oral cap 1 cap nightly (Last dose: 03/09/2016) 13. labetalol 200 mg Oral tab 1 tab 2 times per day (Last dose: 03/10/2016) 14. losartan 50 mg oral tab 1 tab once daily (Last dose: 03/10/2016) 15. nifedipine 60 mg Oral tr24 2 tabs once daily (Last dose: 03/10/2016) 16. omeprazole 20 mg Oral cpDR 1 cap once daily (Last dose: 03/10/2016) 17. Proventil 90 mcg/actuation inhalation aero 2 puffs as needed 18. simvastatin 40 mg Oral tab 0.5 tab nightly (Last dose: 03/09/2016) 19. Spiriva with HandiHaler 18 mcg Inhl CpDv 1 cap once daily (Last dose: 03/10/2016) 20. Symbicort 160-4.5 mcg/actuation inhalation HFAA 2 puffs 2 times per day (Last dose: 03/10/2016) 21. terazosin 5 mg oral cap nightly (Last dose: 03/09/2016) 22. acetaminophen-codeine 300-60 mg Oral tab 1 tab as needed 23. Vitamin C 500 mg Oral tab 500 mg daily (Last dose: 03/10/2016) 24. Vitamin D3 1,000 unit oral tab daily (Last dose: 03/10/2016) 25. glipizide 10 mg Oral tab three times a day (Last dose: 03/10/2016) 26. Lantus 100 unit/mL Sub-Q soln 36 unit daily (Last dose: 03/08/2016) 27. Novolog 100 unit/mL Sub-Q soln 12 unit three times a day (Last dose: 03/08/2016) - PMHx: CHF; COPD; Diabetes - IDDM: controlled; GERD; Gout; High Cholesterol; Hypertension; - PSHx: Colon Resection; Appendectomy; Cholecystectomy; bilateral knee replacements; - The history from nurses notes was reviewed: and I agree with what is documented. - Social history: Smoking status: Patient states former smoker of tobacco. No barriers to communication noted, The patient speaks fluent [place]an, Speaks appropriately for age. - Family history: Not pertinent. - : The pt / caregiver states he / she is not on anticoagulants. Home medication list is obtained from the patient. - Hospitalizations: : No recent hospitalization is reported. - Exposure Risk Screening:: None identified. - Immunization history:: All immunizations up-to-date. - Social history:: the patient is a former smoker, the patient formerly used alcohol. ROS: 16:29 All systems are negative except as listed. pc Exam: 16:33 General Appearance: no acute distress, alert. pc 16:33 EENT: normal eye inspection, ears, nose and throat normal, mucous membranes dry. 16:33 Neck: The exam reveals no acute abnormalities. ROM is normal and painless. No nuchal rigidity is noted.. 16:33 Respiratory: no respiratory distress, normal breath sounds. 16:33 CVS: regular pulse rate, regular rhythm, normal S1 and S2, no murmurs, strong peripheral pulses. 16:33 Abdomen: soft, non-tender, no organomegaly, bowel sounds hyperactive. 16:33 Back: normal inspection. 16:33 Skin: skin color is normal, warm, dry. 16:33 Extremities: The extremities have a grossly normal appearance, are non-tender, without acute ROM abnormalities. 16:33 Neuro: oriented x 3, cranial nerves normal as tested, no motor deficits, no sensory deficits. 16:33 Psych: normal mood. Vital Signs: 15:42 BP 124 / 71 (auto/); pml 15:44 Pulse 86 MON; Pulse Ox 92% ; pml 15:45 BP 124 / 71; Pulse 88; Resp 18; Temp 97.4(O); Pulse Ox 96% on 3 lpm NC; Pain 0/10; nb2 15:55 Weight 113.4 kg / 250 lbs; Height 6 ft. 1 in. (185.42 cm); pml 15:57 Pulse 84 MON; Pulse Ox 98% ; pml 15:57 BP 142 / 64 (auto/); pml 16:12 Pulse 84 MON; Pulse Ox 99% ; pml 16:12 BP 144 / 58 (auto/); pml 16:27 Pulse 82 MON; Pulse Ox 99% ; pml 16:27 BP 141 / 65 (auto/); pml 16:42 Pulse 82 MON; Pulse Ox 99% ; pml 16:42 BP 133 / 68 (auto/); pml 16:57 Pulse 88 MON; Pulse Ox 100% ; pml 16:57 BP 133 / 62 (auto/); pml 17:12 Pulse 84 MON; Pulse Ox 99% ; pml 17:12 BP 143 / 68 (auto/); pml 17:35 Pulse 86 MON; Pulse Ox 98% ; pml 17:36 BP 138 / 63 (auto/); pml 17:42 Pulse 82 MON; Pulse Ox 99% ; pml 17:42 BP 138 / 65 (auto/); pml 17:57 Pulse 84 MON; Pulse Ox 100% ; pml 17:57 BP 126 / 53 (auto/); pml 18:12 Pulse 78 MON; Pulse Ox 100% ; pml 18:12 BP 127 / 58 (auto/); pml 18:27 Pulse 84 MON; Pulse Ox 100% ; pml 18:27 BP 127 / 61 (auto/); pml 18:42 Pulse 82 MON; Pulse Ox 99% ; pml 18:42 BP 127 / 58 (auto/); pml 18:57 Pulse 80 MON; Pulse Ox 99% ; mlc 18:57 BP 120 / 59 (auto/); mlc 19:12 BP 117 / 58 (auto/); mlc 19:12 Pulse 78 MON; Pulse Ox 99% ; mlc 19:27 Pulse 82 MON; Pulse Ox 100% ; mlc 19:27 BP 118 / 56 (auto/); mlc 19:42 BP 111 / 55 (auto/); mlc 19:42 Pulse 82 MON; Pulse Ox 99% ; mlc 19:57 Pulse 78 MON; Pulse Ox 100% ; mlc 19:57 BP 118 / 58 (auto/); mlc 20:12 BP 117 / 56 (auto/); mlc 20:12 Pulse 80 MON; Pulse Ox 100% ; mlc 20:27 Pulse 78 MON; Pulse Ox 99% ; mlc 20:27 BP 112 / 53 (auto/); mlc 21:01 Pulse 80 MON; Pulse Ox 100% ; mlc 21:13 BP 110 / 53 (auto/); mlc 21:13 Pulse 88 MON; Pulse Ox 99% ; mlc 21:57 BP 131 / 61 (auto/); mlc 21:57 Pulse 80 MON; Pulse Ox 99% ; mlc 22:10 BP 125 / 59; Pulse 87; Resp 18; Temp 97.1; Pulse Ox 99% on 2 lpm NC; Pain 0/10; mlc 15:55 Body Mass Index 32.98 (113.40 kg, 185.42 cm) pml MDM: 15:49 Fingerstick Blood Sugar Ordered. EDMS 15:55 D50W 50 ml IVP once; (1 amp) ordered. pml 16:08 Fingerstick Blood Sugar Ordered. EDMS 16:27 IV Saline Lock ordered. pc 16:27 Ondansetron 4 mg IVP once ordered. pc 16:27 NS 0.9% 500 ml IV at bolus once ordered. pc 16:28 Stool samples ordered. pc 16:29 CBC with Diff Ordered. EDMS 16:29 MED Profile Ordered. EDMS 16:29 Fingerstick Blood Sugar Reviewed. pc 16:29 Fingerstick Blood Sugar Reviewed. pc 16:33 Differential Diagnosis: VGE, dehydration, hypoglycemia - resolved. Plan: labs, IVF, pc labs. 16:51 CBC with Diff Reviewed. pc 16:51 MED Profile Reviewed. pc 16:53 Accucheck hourly ordered. pc 17:02 Abdomen, Flat\\E\\Upright,PA Chest Ordered. EDMS 17:02 ECG WITH READING ER PHYS+CARDIAG ordered. EDMS 17:07 Fingerstick Blood Sugar Ordered. EDMS 17:17 Fingerstick Blood Sugar Reviewed. pc 17:17 Data reviewed: old medical records, vital signs, nurses notes, EKG(s), lab test pc results, all radiology studies and available results. Test interpretation: EKG. Test interpretation: LAB - all labs as ordered have been reviewed, interpreted and considered in the overall management of the clinical presentation;. 17:18 BED REQUEST+ADM ordered. EDMS 17:39 D5-NS 1000 ml IV at 100 mL/hr once ordered. pc 17:39 D50W 50 ml IVP once; (1 amp) ordered. pc 18:04 Fingerstick Blood Sugar Reviewed. pc 18:43 Test interpretation: X-RAY - interpreted by me, 3-view abdomen series; no acute pc disease. The patient has been re-examined and re-evaluated. The patient's symptoms have mildly improved after treatment, However, his FSBS drops within an hour after glucose administration due to glipizide. His creatinine has increased from his baseline of 1.8 to 3.15 and will require admission for hydration and continued hypoglycemia management. 18:45 Physician consultation: Dr. Lorna Iraheta regarding admission. Disposition: The pc historical points, examination findings, and any diagnostic results supporting the provided diagnosis, were discussed with the patient or legal guardian. The need for further work-up and/or treatment in the hospital was explained. 19:12 Written Provider Order was scanned into [employer] and attached to record. ml3 19:13 Fingerstick Blood Sugar Ordered. EDMS 19:13 D10 in Water 1000 ml IV at 100 mL/hr continuous ordered. mlc 20:00 Admission / Observation Status ordered. EDMS 20:01 FULL LIQUIDS DIET ordered. EDMS 20:01 COMPLETE COMPHRENSIVE METABOLI Ordered. EDMS 20:01 BASIC METABOLIC PROFILE Ordered. EDMS 20:01 MAGNESIUM LEVEL Ordered. EDMS 20:01 BLOOD CULTURES Ordered. EDMS 20:01 GASTROINTESTINAL (GI) PANEL Ordered. EDMS 20:32 Financial registration complete. [email or web address] 20:32 [facility] Payment Agreement was scanned into [employer] and attached to record. [email or web address] 20:58 Admission / Observation Status ordered. EDMS 21:15 Fingerstick Blood Sugar Ordered. EDMS 21:44 Fingerstick Blood Sugar Ordered. EDMS 21:44 D50W 25 ml IVP once; (0.5 amp) ordered. mlc 22:13 Fingerstick Blood Sugar Ordered. EDMS EC:17 Rate is 86 beats/min. Rhythm is regular, Normal Sinus Rhythm. Left axis deviation pc noted. QRS is negative in leads II, aVF. NH interval is prolonged at 208 msec. QRS interval is prolonged at 153 msec. QT interval is normal. Q waves are Old in lead aVL. T waves are Normal. No ST changes noted. Clinical impression: Normal Sinus Rhythm, RBBB, LAFB, and 1st degree heart block. No change from previous ECG in August,. Point of Care Testing: Blood Glucose: 18:29 Blood Glucose: 91 mg/dL; ld5 19:07 Blood Glucose: 62 mg/dL; mlc 19:50 Blood Glucose: 58 mg/dL; [facility] [place] 21:08 Blood Glucose: 51 mg/dL; [facility] [place] 21:37 Blood Glucose: 50 mg/dL; [facility] [place] 22:06 Blood Glucose: 88 mg/dL; [facility] [place]: Administered Medications: 15:50 Drug: D50W 50 ml [dextrose 50 % in water (D50W) intravenous solution (50 mL)] Route: pml IVP; Site: left antecubital; 16:35 Drug: Ondansetron 4 mg [ondansetron HCl 2 mg/mL intravenous solution (2 mL)] Route: pml IVP; Site: left antecubital; 16:35 Drug: NS 0.9% 500 ml [sodium chloride 0.9 % injection solution] Route: IV; Rate: bolus; [facility] Site: left antecubital; 17:40 Drug: D50W 50 ml [dextrose 50 % in water (D50W) intravenous solution (50 mL)] Route: pml IVP; Site: left antecubital; 17:49 Drug: D5-NS 1000 ml [dextrose 5 % and 0.9 % sodium chloride intravenous solution] [facility] Route: IV; Rate: 100 mL/hr; Site: left antecubital; 19:31 Drug: D10 in Water 1000 ml [dextrose 10 % in water (D10W) intravenous solution] Route: [facility] [place]; Rate: 100 mL/hr; Site: left antecubital; 21:44 Drug: D50W 25 ml [dextrose 50 % in water (D50W) intravenous syringe (25 mL)] Route: mlc IVP; Site: left antecubital; Critical Care Time: 18:45 Critical care time: Bedside Care: 20 minutes, Consultation: 10 minutes, Family pc Intervention: 10 minutes. Total time: 40 minutes Signatures: Dispatcher [employer] EDMS Blade Gomez MD MD pc Lopresti, Mary-Elizabeth, Sales And Marketing Representative Unit ml3 Simona White RN RN ld5 Maxine Gordon RN RN pml Booth, Mandy, RN RN mlc Sorenson, Kimberly, Reg Reg [email or web address] The chart was reviewed and I authenticate all verbal orders and agree with the evaluation and treatment provided.Corrections: (The following items were deleted from the chart) 16:03 16:00 Home Meds: glipizide 10 mg Oral tab three times a day; ld5 ld5 16:03 16:00 Home Meds: Lantus 100 unit/mL Sub-Q soln 36 unit daily; ld5 ld5 16:03 16:00 Home Meds: Novolog 100 unit/mL Sub-Q soln 12 unit three times a day; ld5 ld5 18:47 18:43 The patient has been re-examined and re-evaluated. The patient's symptoms have pc mildly improved after treatment, pc 20:01 20:01 GASTROINTESTINAL (GI) PANEL ordered. EDMS EDMS 20:01 20:01 GASTROINTESTINAL (GI) PANEL ordered. EDMS EDMS Attachments: 19:12 Written Provider Order ml3 20:32 [facility] Payment Agreement [email or web address]
[2016-03-10 22:30] VITALS: BP 137/64
[2016-03-10 23:40] VITALS: BP 140/62
[2016-03-10] MEDS: ALBUTEROL SULFATE 2.5 MG/0.5 ML INH NEB SOLN INH SCH (23:58)
[2016-03-11] VITALS (13 sets, daily range): BP systolic 100–136; BP diastolic 49–68; O2SAT 96
[2016-03-11] MEDS: TERAZOSIN 5 MG CAP PO SCH ×2 (00:07→21:45)
[2016-03-11] MEDS: ACETAMINOPHEN TAB 650MG DOSE (2X325MG) PO PRN (00:07)
[2016-03-11] MEDS: hydrOXYzine 50 MG TAB PO SCH ×2 (00:07→21:46)
[2016-03-11] MEDS: cloNIDine 0.1 MG TAB PO SCH ×3 (00:08→21:45)
[2016-03-11] MEDS: SIMVASTATIN 20 MG TAB PO SCH ×2 (00:08→21:45)
[2016-03-11] MEDS: FERROUS SULFATE 325MG TAB PO SCH ×3 (00:08→21:46)
[2016-03-11] MEDS: **hydrALAZINE HCL** 25 MG TAB PO SCH ×3 (00:08→21:46)
[2016-03-11] MEDS: LABETALOL 200 MG TAB PO SCH ×3 (00:09→21:46)
[2016-03-11] MEDS: ONDANSETRON 4MG/2ML VIAL (J2405) IV PRN ×2 (00:28→21:48)
[2016-03-11] MEDS ORDERED: ALPRAZolam 0.25 MG TAB PO ONE (03:30)
[2016-03-11 05:10] LABS: ALBUMIN 2.7 GM/DL (3.2-5.2); ALBUMIN/GLOBULIN RATIO 0.71 (1.00-1.93); BILIRUBIN,TOTAL 0.2 MG/DL (0.2-1.0); CALCIUM LEVEL 7.8 MG/DL (8.8-10.2); CREATININE FOR GFR 3.26 MG/DL (0.70-1.30); GLOMERULAR FILTRATION RATE 19.7 (>42); MAGNESIUM LEVEL 1.7 MG/DL (1.8-2.4); POTASSIUM SERUM 4.8 MEQ/L (3.5-5.1); TOTAL PROTEIN 6.5 GM/DL (6.4-8.2)
[2016-03-11] MEDS: D10W 1,000 ML IV SCH (05:13)
[2016-03-11 07:34] LABS: BASO % 0.3 % (0.0-1.0); EOS # 0.4 K/mm3 (0.0-0.50); EOS % 2.9 % (0.0-3.0); LARGE UNSTAINED CELL # 0.1 K/mm3 (0.0-0.4); LARGE UNSTAINED CELL % 1.1 % (0.0-4.0); LYMPH % 8.4 % (24.0-44.0); MEAN CORPUSCULAR HEMOGLOBIN 27.8 pg (27.0-33.0); MEAN CORPUSCULAR VOLUME 86.8 fl (80.0-96.0); MONO # 0.5 K/mm3 (0.0-0.8); MONO % 4.3 % (0.0-5.0); NEUTROPHILS # 10.2 K/mm3 (1.8-7.7); PLATELET COUNT, AUTOMATED 230 k/mm3 (150-450); RED CELL DISTRIBUTION WIDTH 15.4 % (11.5-14.5); WHITE BLOOD COUNT 12.3 K/mm3 (4.0-10.0)
[2016-03-11] MEDS: ALBUTEROL SULFATE 2.5 MG/0.5 ML INH NEB SOLN INH SCH ×3 (08:00→20:00)
[2016-03-11] MEDS: SYMBICORT 160/4.5MCG INHALER 6GM INH SCH (08:15)
[2016-03-11] MEDS: TIOTROPIUM INHALER/CAPSULE (SPIRIVA) INH SCH (08:15)
[2016-03-11] MEDS: MULTIVITAMINS/MINERALS THERAP 1 TAB PO SCH (08:25)
[2016-03-11] MEDS: OMEPRAZOLE 20 MG CAP PO SCH (08:26)
[2016-03-11] MEDS: VITAMIN D 1,000 INTERNATIONAL UNITS TABLET PO SCH (08:26)
[2016-03-11] MEDS: ASPIRIN 81 MG ENTERIC TAB PO SCH (08:26)
[2016-03-11] MEDS: NIFEdipine 60 MG XL TAB PO SCH (08:26)
[2016-03-11] MEDS ORDERED: INFLUENZA VIRUS VACCINE HIGH DOSE 0.5 ML SYRINGE (90662) IM SCH (10:15)
[2016-03-11] MEDS ORDERED: D5W 1,000 ML IV SCH (15:30)
[2016-03-12] VITALS (9 sets, daily range): BP systolic 111–158; BP diastolic 56–95
[2016-03-12] MEDS ORDERED: FUROSEMIDE 40 MG/4 ML VIAL (J1940) IV ONE ×2 (02:45→22:00)
[2016-03-12] MEDS: ONDANSETRON 4MG/2ML VIAL (J2405) IV PRN (03:26)
[2016-03-12 05:58] LABS: ALBUMIN 2.8 GM/DL (3.2-5.2); ALBUMIN/GLOBULIN RATIO 0.72 (1.00-1.93); BILIRUBIN,TOTAL 0.3 MG/DL (0.2-1.0); CALCIUM LEVEL 8.1 MG/DL (8.8-10.2); CREATININE FOR GFR 3.85 MG/DL (0.70-1.30); GLOMERULAR FILTRATION RATE 16.3 (>42); MAGNESIUM LEVEL 1.6 MG/DL (1.8-2.4); TOTAL PROTEIN 6.7 GM/DL (6.4-8.2)
[2016-03-12 06:02] LABS: POTASSIUM SERUM 5.5 MEQ/L (3.5-5.1)
[2016-03-12] MEDS: SYMBICORT 160/4.5MCG INHALER 6GM INH SCH ×2 (07:10→20:23)
[2016-03-12] MEDS: TIOTROPIUM INHALER/CAPSULE (SPIRIVA) INH SCH (07:11)
[2016-03-12] MEDS: ALBUTEROL SULFATE 2.5 MG/0.5 ML INH NEB SOLN INH SCH ×3 (07:11→20:23)
[2016-03-12] MEDS: HumaLOG INSULIN (NovoLOG) PER UNIT SC SCH ×5 (08:02→23:28)
[2016-03-12] MEDS: OMEPRAZOLE 20 MG CAP PO SCH (08:36)
[2016-03-12] MEDS: NIFEdipine 60 MG XL TAB PO SCH (08:36)
[2016-03-12] MEDS: FERROUS SULFATE 325MG TAB PO SCH ×2 (08:36→21:17)
[2016-03-12] MEDS: **hydrALAZINE HCL** 25 MG TAB PO SCH ×2 (08:36→21:16)
[2016-03-12] MEDS: MULTIVITAMINS/MINERALS THERAP 1 TAB PO SCH (08:37)
[2016-03-12] MEDS: VITAMIN D 1,000 INTERNATIONAL UNITS TABLET PO SCH (08:37)
[2016-03-12] MEDS: cloNIDine 0.1 MG TAB PO SCH ×2 (08:37→21:17)
[2016-03-12] MEDS: ASPIRIN 81 MG ENTERIC TAB PO SCH (08:37)
[2016-03-12] MEDS: LABETALOL 200 MG TAB PO SCH ×2 (08:38→21:16)
[2016-03-12] MEDS ORDERED: FUROSEMIDE 20 MG TAB PO SCH (09:00)
--- NOTE | 2016-03-12 10:56 | REP ---
Clinical: Abdominal distension. Comparison: 10/02/2015. Findings: Gastric distension along with distended air-filled and fluid filled loops of small bowel are appreciated with normal caliber, collapsed small bowel in the right lower quadrant suggesting the possibility of early/partial small bowel obstruction. Colon demonstrates moderate retained fecal material within the rectosigmoid colon raising the possibility of associated constipation. No free air to suggest perforation and no free fluid or drainable collection identified. Liver, spleen, pancreas, bilateral adrenal glands and kidneys are relatively normal for noncontrast evaluation. Symmetric perinephric stranding likely chronic. Pelvis demonstrates normal bladder and age appropriate prostate/seminal vesicles. No pelvic fluid or ascites. No adenopathy. Atherosclerotic changes of the aorta and vasculature without aneurysm. Surrounding musculoskeletal structures demonstrate degenerative changes without focal osseous abnormalities. Lung bases demonstrate chronic scarring and interstitial disease along with bronchiectasis. Impression: 1. Gastric as well as small bowel distension with collapsed, normal caliber of small bowel in the right lower quadrant suggests the possibility of early/partial small bowel obstruction and correlation is required. No free air, free fluid or drainable collection identified. 2. Moderate fecal stasis and constipation involving the rectosigmoid. 3. Chronic stable changes as detailed above. Signed by Johnny Berrios MD 03/12/2016 10:47 A
--- NOTE | 2016-03-12 11:12 | REP ---
Clinical: Acute renal insufficiency. Technique: Real time nolan scale ultrasound examination using curved array transducer. Findings: Bilateral kidneys are normal in reniform shape demonstrating increased central renal sinus fat and decreased cortical thickness suggesting chronic medical renal disease. There is no evidence for hydronephrosis, nephrolithiasis, cystic or renal mass lesion. No perinephric fluid collection. Right kidney measures 9.9 x 5.6 x 5.8 cm. Left kidney measures 10.9 x 5.6 x 6.3 cm. Bladder is essentially unremarkable with small amount of debris and currently measures 9.6 x 7.7 x 4.6 cm. Impression: Findings compatible with chronic medical renal disease and no evidence for hydronephrosis. Signed by Johnny Berrios MD 03/12/2016 11:04 A
[2016-03-12] MEDS ORDERED: FLEET ENEMA PR PRN (11:45)
[2016-03-12 14:26] LABS: CALCIUM LEVEL 8.2 MG/DL (8.8-10.2); CREATININE FOR GFR 4.16 MG/DL (0.70-1.30); GLOMERULAR FILTRATION RATE 14.9 (>42)
[2016-03-12 14:29] LABS: POTASSIUM SERUM 5.7 MEQ/L (3.5-5.1)
--- NOTE | 2016-03-12 14:42 | CR ---
DATE OF CONSULTATION: 03/12/2016 CONSULTATION REPORT FOR: Dr. Freedman of the hospitalist service. REASON FOR CONSULTATION: Regarding possible bowel obstruction. HISTORY OF PRESENT ILLNESS: Mr. 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 He was admitted on 03/10/2016 for hypoglycemia that was symptomatic. This resulted from what he reports was nausea, vomiting, and diarrhea for a couple of days prior to his presentation. This was initially presumed to be gastroenteritis. During this admission, he continued to have abdominal distension despite having small amount of stool. The patient reports he is passing flatus. His abdomen got distended. He got more nauseated today and was throwing up. A CT scan of the abdomen and pelvis was done which was read by the radiologist as possible early small bowel obstruction. Likewise, he has a moderate amount of stool at the rectosigmoid area. I was then asked to see the patient regarding the possibility of bowel obstruction. At the bedside, I saw him. He was somnolent. His abdomen was well-distended. The nurses were attempting a nasogastric tube and were not successful. He has some narrowing of his naris, most prominent on the left side. I was able to thread an 18-Malagasy nasogastric tube into and intubate the stomach. PAST MEDICAL HISTORY: Reviewed and this includes: 1. Stage III chronic kidney disease. 2. Chronic lung disease from occupational exposure on three liters of home oxygen. 3. Hypertension. 4. Gout. 5. Coronary artery disease. 6. Prior history of myocardial infarction (VA). 7. Diastolic congestive heart failure. 8. Diabetes mellitus. 9. Benign prostatic hypertrophy (BPH). 10. Gastritis. 11. Hyperlipidemia. 12. History of pulmonary embolism. 13. History of gastrointestinal (GI) bleed. 14. Sleep apnea. 15. Morbid obesity. PAST SURGICAL HISTORY: Includes: 1. Right colectomy for appendicitis via midline incision. 2. Cholecystectomy. 3. Bilateral knee replacement. FAMILY HISTORY: Reviewed. SOCIAL HISTORY: Reviewed. ALLERGIES: No known drug allergies. REVIEW OF SYSTEMS: The patient was quite somnolent at the time that I saw him, fading in and out though his responses are consistent with the questions, so proper review of systems not done. PHYSICAL EXAMINATION: The patient is seen. The patient was on his side. Reports nausea but otherwise not in acute distress. Mildly pale-appearing. Lips appear dry. No jugular venous distension. Barrel chest. No wheezing appreciated on auscultation. HEART: Rate and rhythm regular with no murmurs. ABDOMEN: Markedly rounded and protuberant and somewhat tensely distended, tympanitic to percussion. Minimally tender on palpation. DIGITAL RECTAL EXAMINATION: Shows stool in the rectal vault. No distal obstruction appreciated. IMPRESSION: Possibly a small bowel obstruction secondary to adhesions from prior exploratory laparotomy. A nasogastric tube was placed. Continue IV fluid hydration. Make sure his electrolytes are alright. Certainly, he is not a fit candidate for surgery. I am hoping the decompression will help him. Certainly, activity will help though he has been very sedentary baseline. He probably will need physical therapy to mobilize him. His activity is limited by his chronic lung disease. I will followup closely during this admission. I see no evidence of threatened bowel at this time so we will continue with nonoperative treatment. His chronic lung disease is high risk for pulmonary complications if he would need surgery and a risk for prolonged ventilation after abdominal surgery. PARMINDER
[2016-03-12] MEDS: NS 1,000 ML IV SCH (16:32)
--- NOTE | 2016-03-12 16:35 | IPNPDOC ---
Assessment/Plan Date Seen The patient was seen on 03/12/16. Problems Problems: (1) Acute kidney injury superimposed on CKD Status: Acute Problem Text: Patient's serum creatinine noted to be 3.85 this morning, baseline around 2 Initially thought to be secondary to prerenal azotemia as the patient did present with diarrhea, however his serum creatinine has gotten worse despite IV fluid hydration Possibly secondary to underlying abdominal distention from constipation from ? Small bowel obstruction Ultrasound of the kidneys ordered, urine studies ordered Nephrotoxins held Nephrology consulted (2) Constipation Status: Acute Problem Text: CT scan of the abdomen ordered this morning suggestive of possible early partial small bowel obstruction-the patient does have risk for adhesions as he has had laparoscopic surgery in the past NG tube ordered to low intermittent suction, Fleet enema ordered We will keep the patient nothing by mouth Surgery consulted (3) Diastolic CHF Status: Chronic Response to Treatment: Stable Problem Text: Currently appears clinically compensated We'll continue with IV fluid hydration given nothing by mouth status Hold nephrotoxins including Lasix at this time (4) Occupational lung disease Status: Chronic Problem Text: Continue on albuterol, Symbicort Patient with no active respiratory wheezing (5) Diabetes Status: Chronic Problem Text: Continue on insulin sliding scale (6) Chronic anemia Status: Chronic Problem Text: Hemoglobin noted we will continue to monitor (7) Obesity Status: Chronic (8) ANKITA (obstructive sleep apnea) Status: Chronic (9) Gait instability Status: Chronic Problem Text: Physical therapy ordered (10) CAD in [place] artery Status: Chronic Problem Text: Continue aspirin, nel, simvastatin (11) Hypertension Status: Chronic Response to Treatment: Stable Problem Text: Continue current anti-hypertensive regimen. Plan / VTE VTE Prophylaxis Ordered?: Yes Subjective Review of Systems CC/HPI The patient is a 75-year-old male admitted with a reason for visit of [place] ( Acute Kidney Injury). Constitutional: Denies: Chills, Fever ENT: Denies: Ear Pain, Head Aches Pulmonary: Denies: Cough, Dyspnea Cardiovascular: Denies: Chest Pain, Palpitations Gastrointestinal: Reports: Constipation, Denies: Nausea, Vomiting Hematologic: Denies: Bleeding Excessively, Bruising Musculoskeletal: Denies: Back Pain, Neck Pain Objective Physical Examination General Exam: Positive: Cooperative, No Acute Distress ENT Exam: Positive: Atraumatic, Mucous membr. moist/pink Chest Exam: Positive: Clear to auscultation, Normal air movement Heart Exam: Positive: Normal S1, Normal S2, Rate Normal Abdomen Exam: Positive: BS Hypoactive, Other (distended), Negative: Hepatospenomegaly, Tenderness Extremity Exam: Negative: Tenderness Vital Signs/I&O Vital Signs Date Time Temp Pulse Resp B/P Pulse Ox O2 Delivery O2 Flow Rate FiO2 03/12/16 15:10 Nasal Cannula 3.0 03/12/16 15:00 98.2 83 20 158/68 97 I&O- Last 24 Hours up to 6 AM 03/12/16 05:59 Intake Total 2438 ml Output Total 700 ml Balance 1738 ml Laboratory Data Labs 24H Laboratory Tests 2 03/11/16 18:18: Bedside Glucose (Misc Panel) 150H 03/11/16 22:20: Bedside Glucose (Misc Panel) 176H 03/12/16 00:52: Bedside Glucose (Misc Panel) 204H 03/12/16 02:01: Bedside Glucose (Misc Panel) 341H 03/12/16 05:08: Blood Urea Nitrogen 60H, Creatinine 3.85H, Sodium Level 127#L, Potassium Level 5.5H, Chloride Level 92L, Carbon Dioxide Level 22, Calcium Level 8.1L, Phosphorus Level 5.0H, Aspartate Amino Transf (AST/SGOT) 32, Alanine Aminotransferase (ALT/SGPT) 34, Alkaline Phosphatase 59, Total Bilirubin 0.3, Total Protein 6.7, Albumin 2.8L, Albumin/Globulin Ratio 0.72L, Anion Gap 13, Glomerular Filtration Rate 16.3L, Magnesium Level 1.6L 03/12/16 07:30: Bedside Glucose (Misc Panel) 216H 03/12/16 11:01: Urine Amorphous Sediment , Urine Appearance CLOUDYH, Urine Color YELLOW, Urine pH 5.0, Urine Specific [place] 1.012, Urine Protein 2+H, Urine Glucose (UA) 1+H , Urine Ketones NEGATIVE, Urine Urobilinogen 0.2, Urine Bilirubin NEGATIVE, Urine Leukocyte Esterase 3+H, Urine Bacteria (Auto) 1+H, Urine Blood NEGATIVE, Urine Calcium Carbonate Cryst(Auto) , Urine Calcium Oxalate Cryst (Auto) , Urine Calcium Phosphate Yari (Auto) , Urine Cellular Casts , Urine Cystine Crystals , Urine Granular Casts (Auto) , Urine Hyaline Casts (Auto) 1, Urine Leucine Crystals , Urine Mucus (Auto) SMALL, Urine Nitrite NEGATIVE, Urine Oval Fat Bodies (Auto) , Urine RBC (Auto) 14H, Urine Random Creatinine 81.3, Urine Random Sodium 14, Urine Renal Epithelial Cells , Urine Sperm (Auto) , Urine Squamous Epithelial Cells 2, Urine Transitional Epithelial Cells , Urine Trichomonas (Auto) , Urine Triple Phosphate Cryst (Auto) , Urine Tyrosine Crystals , Urine Uric Acid Crystals (Auto) , Urine WBC (Auto) 133H, Urine Waxy Casts (Auto) , Urine Yeast-Like Cells (Auto) 03/12/16 12:10: Bedside Glucose (Misc Panel) 170H 03/12/16 13:39: Anion Gap 12, Blood Urea Nitrogen 68H, Creatinine 4.16H, Sodium Level 128L, Potassium Level 5.7H, Chloride Level 91L, Carbon Dioxide Level 25, Calcium Level 8.2L, Glomerular Filtration Rate 14.9L CBC/BMP Laboratory Tests 03/12/16 05:08 Calcium Level 8.1 L, Phosphorus Level 5.0 H, Aspartate Amino Transf (AST/SGOT) 32, Alanine Aminotransferase (ALT/SGPT) 34, Alkaline Phosphatase 59, Total Bilirubin 0.3, Total Protein 6.7, Albumin 2.8 L 03/12/16 13:39 Calcium Level 8.2 L FSBS Laboratory Tests Test 03/11/16 18:18 03/11/16 22:20 03/12/16 00:52 03/12/16 02:01 Range/Units Bedside Glucose (Misc Panel) 150 176 204 341 83-110 MG/DL Test 03/12/16 07:30 03/12/16 12:10 Range/Units Bedside Glucose (Misc Panel) 216 170 83-110 MG/DL Microbiology Microbiology 03/10/16 Blood Culture - Preliminary, Resulted No growth after 24 hours . All specim... 03/12/16 Gastrointestinal Tract Panel (PCR) - Final, Complete 03/10/16 MRSA Screen - Final, Complete MARY PEOPLES MD Mar 12, 2016 16:35
--- NOTE | 2016-03-12 18:08 | CR.PDOC ---
[facility] Consultation Consultation DATE OF ADMISSION: 03/10/2016 DATE OF CONSULTATION: 03/12/2016 REQUESTING PHYSICIAN: Dr. Zeyad Copeland REASON FOR CONSULT: Acute kidney injury HISTORY OF PRESENT ILLNESS: Mr. Snyder is a 75 year old male with past medical history significant for chronic kidney disease stage III, diastolic heart failure, chronic lung disease from occupational exposure with 3 L home O2 , hypertension, type 2 diabetes, gout, coronary artery disease with history of GA, BPH, gastritis, hyperlipidemia, history of pulmonary embolism, history of GI bleed, sleep apnea not on CPAP who presented to the emergency department because of low blood sugars. He initially noted that his sugars were in the 60s. He started experiencing nausea and nonbloody emesis. He was also reporting diarrhea for the last 2 days. Patient also had complaints of mild abdominal pain. In addition to his low blood sugars, on laboratory assessment, he was found to have acute kidney injury. Creatinine was elevated at 3.15, with a baseline of 2. Being that he was having vomiting and diarrhea, it was thought that this was prerenal and patient was initiated on IV fluids and admitted into the hospital. He was also found to have abdominal distention with possibility of partial small bowel obstruction. Patient has had a positive balance of almost 2600 with deterioration of his renal function, thus nephrology was consulted for management of acute kidney injury. PAST MEDICAL HISTORY: Chronic kidney disease stage III, heart failure, chronic lung disease from occupational exposure with 3 L home O2, type 2 diabetes, hypertension, gout, coronary artery disease with history of GA,, BPH, gastritis , hyperlipidemia, history of pulmonary embolism, history of GI bleed, sleep apnea not on CPAP PAST SURGICAL HISTORY: Appendectomy with partial colectomy, cholecystectomy, bilateral knee replacement ALLERGIES: No known drug allergies. HOME MEDICATIONS: Please see below. SOCIAL HISTORY: Patient is a former smoker, quit about 40 years ago. Denied any alcohol or illicit drug use. FAMILY HISTORY: Significant for coronary artery disease. REVIEW OF SYSTEMS: As per HPI. In addition, positive for chronic shortness of breath. Negative for fever, chills, chest pain, palpitations, headache, urinary complaints and skin changes. PHYSICAL EXAMINATION: VITAL SIGNS: Temperature 98.2, pulse 85, respiratory rate 20, blood pressure 142 /95, pulse ox 90% on 3 L nasal cannula which is baseline. Total intake of 2898 mL and output of 550 mL and previous 24 hours. Current documented weight is 117.9 KG GENERAL: Awake and alert, no acute distress HEENT: Normocephalic, atraumatic. Extraocular movements intact. Moist mucosa. NECK: Supple. Jugular veins are at the level of the jaw. HEART: Normal S1, S2. Regular rate and rhythm. No murmurs appreciated. LUNGS: clear to auscultation bilaterally. No rales, rhonchi, or wheezing appreciated. ABDOMEN: Abdomen is soft but distended. Has mild diffuse tenderness to palpation. Bowel sounds are present. EXTREMITIES: Mild ankle edema. No cyanosis Positive pedal pulses bilaterally NEUROLOGIC: Has chronic left upper extremity weakness from previous stroke. No new focal deficits. LABORATORY DATA: 03/12/16 05:08 Calcium Level 8.1 L, Phosphorus Level 5.0 H, Aspartate Amino Transferase (AST/ SGOT) 32, Alanine Aminotransferase (ALT/SGPT) 34, Alkaline Phosphatase 59, Total Bilirubin 0.3, Total Protein 6.7, Albumin 2.8 L, Anion Gap 13, Glomerular Filtration Rate 16.3L, Magnesium Level 1.6L 03/12/16 13:39 URINALYSIS: Urine Amorphous Sediment , Urine Appearance CLOUDYH, Urine Color YELLOW, Urine pH 5.0, Urine Specific [place] 1.012, Urine Protein 2+H, Urine Glucose (UA) 1+H , Urine Ketones NEGATIVE, Urine Urobilinogen 0.2, Urine Bilirubin NEGATIVE, Urine Leukocyte Esterase 3+H, Urine Bacteria (Auto) 1+H, Urine Blood NEGATIVE, Urine Mucus SMALL, Urine Nitrite NEGATIVE, Urine RBC 14H, Urine Random Creatinine 81.3, Urine Random Sodium 14, Urine WBC 133H MICROBIOLOGY: Culture shows no growth thus far. GI panel is negative. IMAGING: Renal ultrasound shows thin renal cortex compatible with chronic renal disease, no hydronephrosis, bladder is not distended. Abdominal x-ray shows gas and fluid dilated stomach. Abdominal/pelvis CT shows gastric as well as small bowel distention suggesting possible early partial small bowel obstruction, no free air. Moderate fecal stasis and constipation involving the rectosigmoid. ASSESSMENT AND PLAN: Mr. Snyder is a 75 year old male with past medical history significant for chronic kidney disease stage III, diastolic heart failure, chronic lung disease from occupational exposure with 3 L home O2, hypertension, gout, coronary artery disease with history of GA, diabetes mellitus type 2, hyperlipidemia, BPH, history of GI bleed and gastritis and sleep apnea not on CPAP who presented due to hypoglycemia while experiencing vomiting and diarrhea and found to be in acute on chronic renal failure. 1. Acute on chronic kidney disease stage III, probably secondary to prerenal etiology with history of vomiting and diarrhea. The patient's baseline creatinine is around 2. His renal ultrasound does show findings for chronic renal disease, no hydronephrosis or other acute findings. His urinalysis was positive for leukocyte esterase, bacteria, and white blood cell indicating possibly infection. No protein or significant RBCs. Creatinine continued to trend up despite intravenous fluids and he was initiated on Lasix this morning, however this appears to be of prerenal etiology. Repeat basic metabolic profile shows worsening of creatinine after administration of Lasix and he has been restarted on IV fluids. Lasix daily has been discontinued. He does not appear to be significantly volume overloaded at this time and we will need to continue to monitor volume status while on IV fluids. Avoid nephrotoxic medications. 2. Hyperkalemia. Patient's potassium has increased further to 5.7 with repeat labs. He will be given a dose of Lasix tonight to help with decreasing his potassium. He should continue IV fluids for likely prerenal cause of acute kidney injury. 3. Hyponatremia. His hypoglycemia was treated with D5W, which is likely the cause. Patient will be initiated on normal saline and we will monitor his electrolytes. 4. Abdominal distention with possibility of early/partial small bowel obstruction. Patient was given a mineral enema and has had a bowel movement. It appears that surgery has been consulted for further management. 5. Nausea and vomiting. Likely secondary to partial obstruction. He was also reporting diarrhea and GI panel is negative. 6. Hypertension. Blood pressure is stable. Continue home medications which include clonidine, hydralazine, labetalol, Procardia, and terazosin. Hydrochlorothiazide, Lasix and losartan held on admission secondary to acute kidney injury. 7. Chronic diastolic heart failure. Will need to be monitored closely given that patient is on IV fluids. He does not appear to be significantly volume overloaded at this time. 8. Diabetes mellitus type 2. Monitor blood glucose. Anti-diabetic medications held secondary to hypoglycemia. 9. Anemia in chronic kidney disease. Hemoglobin is currently stable. Thank you for the consultation and allowing us to participate in the care of Mr. Snyder. We will continue to follow along with you. Vital Signs/I&O Vital Signs Date Time Temp Pulse Resp B/P Pulse Ox O2 Delivery O2 Flow Rate FiO2 03/12/16 15:10 Nasal Cannula 3.0 03/12/16 15:00 98.2 83 20 158/68 97 I&O- Last 24 Hours up to 6 AM 03/12/16 06:00 Intake Total 2118 ml Output Total 650 ml Balance 1468 ml Allergies Coded Allergies: No Known Allergies (Verified Allergy, Unknown, 06/02/09) Home Medications Scheduled Acetaminophen (Acetaminophen ER) 650 Mg Tab 650 MG PO BID (Reported) Albuterol Sulfate (Albuterol Sulfate) 2.5 Mg/3 Ml Nebu 2.5 MG INH TID (Reported ) Ascorbic Acid (Vitamin C) 500 Mg Tab 500 MG PO DAILY (Reported) Aspirin (Aspirin) 81 Mg Tab 81 MG PO DAILY (Reported) Budesonide/Formoterol (Symbicort 160-4.5 Mcg/Act) 60 Puff/Inhaler Aers 2 PUFF INH BID (Reported) Cholecalciferol (Vitamin D3) 1,000 Unit Cap 1,000 UNIT PO DAILY (Reported) Clonidine Hydrochloride (Catapres) 0.1 Mg Tab 0.1 MG PO BID (Reported) Ferrous Sulfate (Ferrous Sulfate) 325 Mg Tab 325 MG PO BID (Reported) Furosemide (Furosemide) 20 Mg Tab 20 MG PO 4XWK (Reported) TUES,TH,SAT,SUN Furosemide (Furosemide) 40 Mg Tab 40 MG PO 3XW (Reported) MON,FRI,FRI Glipizide (Glipizide) 10 Mg Tab 10 MG PO TID (Reported) Hydralazine HCl (Hydralazine HCl) 25 Mg Tab 25 MG PO BID (Reported) Hydrochlorothiazide (Hydrochlorothiazide) 12.5 Mg Cap 12.5 MG PO DAILY ( Reported) Hydroxyzine Pamoate (Hydroxyzine Pamoate) 50 Mg Cap 50 MG PO QHS (Reported) Insulin Aspart (Novolog Flexpen) 100 Unit/Ml Inj 12 UNITS SC TID (Reported) Insulin Glargine (Lantus Solostar) 100 Unit/Ml Inj 36 UNITS SC QHS (Reported) Labetalol HCl (Labetalol HCl) 200 Mg Tab 200 MG PO BID (Reported) Losartan Potassium (Losartan Potassium) 50 Mg Tab 50 MG PO DAILY (Reported) Multivitamins *[facility] STOCKED* (Thera M Plus *[facility] STOCKED*) 1 Tab Tab 1 TAB PO DAILY (Reported) Nifedipine (Nifedipine ER) 60 Mg Tab 120 MG PO DAILY (Reported) Omeprazole (Omeprazole) 20 Mg Cap 20 MG PO DAILY (Reported) Simvastatin (Simvastatin) 20 Mg Tab 20 MG PO QHS (Reported) Terazosin HCl (Terazosin HCl) 5 Mg Cap 5 MG PO QHS (Reported) Tiotropium [place] Monohydrate (Spiriva Handihaler) 18 Mcg Cap 1 INHALATION INH DAILY (Reported) Scheduled PRN (Colchicine) 0.6 Mg Tab 0.6 MG PO PRN PRN PRN GOUT (Reported) Acetaminophen/Codeine (Tylenol/Codeine #3) Tab 1 TAB PO Q6H PRN PRN PAIN ( Reported) Albuterol Sulfate (Proventil Hfa) 167 Puff/6.7 Gm Aers 2 PUFFS INH Q4H PRN PRN SHORTNESS OF BREATH (Reported) GME ATTESTATION GME ATTESTATION My preceptor for this patient encounter was physically present in the building during the encounter and was fully available. As needed, all aspects of the patient interview, examination, medical decision making process, and medical care plan development were reviewed and approved by the preceptor. Preceptor is aware and concurs with the plan as stated in the body of this note and will attest to such by his/her cosignature. JAKOB ARRIAZA DO Mar 12, 2016 18:02
[2016-03-12] MEDS ORDERED: HumaLOG INSULIN (NovoLOG) PER UNIT SC SCH (21:00)
[2016-03-12] MEDS: hydrOXYzine 50 MG TAB PO SCH (21:16)
[2016-03-12] MEDS: TERAZOSIN 5 MG CAP PO SCH (21:16)
[2016-03-12] MEDS: SIMVASTATIN 20 MG TAB PO SCH (21:16)
--- NOTE | 2016-03-12 23:14 | EDDOCDS ---
Physician Documentation [facility] Name: Davin Snyder Age: 75 yrs Sex: Male : 1940 Arrival Date: 03/10/2016 Time: 15:33 Bed 10 Private MD: Disposition: 03/10 18:45 Critical Care:. pc Disposition: 03/10/16 18:51 Hospitalization ordered by Lorna Iraheta for Inpatient Admission. Preliminary diagnosis are Dehydration, Other viral enteritis, Acute kidney failure, Drug-induced hypoglycemia without coma - glipizide, Type 2 diabetes mellitus. - Bed requested for M ICU. - Status is Inpatient Admission. mlc - Condition is Stable. - Problem is new. - Symptoms have improved. HPI: 16:29 This 75 yrs old Male presents to ER via Ambulance with complaints of Low pc Blood Sugar. 16:29 The history is obtained from the patient. He has n/v/d for 2 days, with only diarrhea pc today. He has not had any fevers or chills, Resp or symptoms. He did not take his insulin over the past 2 days for fear of low sugars. He did, however, take his glipizide, and became lethargic today and EMS was called. He was found to have a FSBS of 71 but on arrival, it was only 38. He was alert but lethargic. He was given D50 with improvement of his mentation and his FSBS was 137. His only complaint is of feeling "washed out". He denies any abdominal pain. At their worst, the symptoms were moderate. In the emergency department, the symptoms are unchanged. The patient has not experienced similar symptoms in the past. The patient has been recently seen by their primary care provider, for a routine, regularly scheduled appointment. Historical: - Allergies: no known allergies; - Home Meds: 1. Oxygen 3LNC Continuous 2. Tylenol Arthritis Pain 650 mg oral TbER 1 tabs twice a day (Last dose: 03/10/2016) 3. albuterol sulfate 2.5 mg /3 mL (0.083 %) Inhl nebu 3 mL 3 times per day (Last dose: 03/10/2016 12:00) 4. aspirin 81 mg Oral TbEC 1 tab once daily (Last dose: 03/10/2016) 5. clonidine HCl 0.1 mg Oral tab 1 tab 2 times per day (Last dose: 03/10/2016) 6. colchicine 0.6 mg Oral tab as needed 7. Complete 50+ oral 1 tab daily (Last dose: 03/10/2016) 8. ferrous sulfate 325 mg (65 mg iron) Oral tab twice a day (Last dose: 03/10/2016) 9. furosemide 40 mg oral tab 1 tab Mon, Wed, Fri (Last dose: 03/08/2016) 10. hydralazine 25 mg Oral tab 1 tab 2 times per day (Last dose: 03/10/2016) 11. hydrochlorothiazide 12.5 mg Oral cap 1 cap once daily (Last dose: 03/10/2016) 12. hydroxyzine pamoate 50 mg oral cap 1 cap nightly (Last dose: 03/09/2016) 13. labetalol 200 mg Oral tab 1 tab 2 times per day (Last dose: 03/10/2016) 14. losartan 50 mg oral tab 1 tab once daily (Last dose: 03/10/2016) 15. nifedipine 60 mg Oral tr24 2 tabs once daily (Last dose: 03/10/2016) 16. omeprazole 20 mg Oral cpDR 1 cap once daily (Last dose: 03/10/2016) 17. Proventil 90 mcg/actuation inhalation aero 2 puffs as needed 18. simvastatin 40 mg Oral tab 0.5 tab nightly (Last dose: 03/09/2016) 19. Spiriva with HandiHaler 18 mcg Inhl CpDv 1 cap once daily (Last dose: 03/10/2016) 20. Symbicort 160-4.5 mcg/actuation inhalation HFAA 2 puffs 2 times per day (Last dose: 03/10/2016) 21. terazosin 5 mg oral cap nightly (Last dose: 03/09/2016) 22. acetaminophen-codeine 300-60 mg Oral tab 1 tab as needed 23. Vitamin C 500 mg Oral tab 500 mg daily (Last dose: 03/10/2016) 24. Vitamin D3 1,000 unit oral tab daily (Last dose: 03/10/2016) 25. glipizide 10 mg Oral tab three times a day (Last dose: 03/10/2016) 26. Lantus 100 unit/mL Sub-Q soln 36 unit daily (Last dose: 03/08/2016) 27. Novolog 100 unit/mL Sub-Q soln 12 unit three times a day (Last dose: 03/08/2016) - PMHx: CHF; COPD; Diabetes - IDDM: controlled; GERD; Gout; High Cholesterol; Hypertension; - PSHx: Colon Resection; Appendectomy; Cholecystectomy; bilateral knee replacements; - The history from nurses notes was reviewed: and I agree with what is documented. - Social history: Smoking status: Patient states former smoker of tobacco. No barriers to communication noted, The patient speaks fluent [place], Speaks appropriately for age. - Family history: Not pertinent. - : The pt / caregiver states he / she is not on anticoagulants. Home medication list is obtained from the patient. - Hospitalizations: : No recent hospitalization is reported. - Exposure Risk Screening:: None identified. - Immunization history:: All immunizations up-to-date. - Social history:: the patient is a former smoker, the patient formerly used alcohol. ROS: 16:29 All systems are negative except as listed. pc Exam: 16:33 General Appearance: no acute distress, alert. pc 16:33 EENT: normal eye inspection, ears, nose and throat normal, mucous membranes dry. 16:33 Neck: The exam reveals no acute abnormalities. ROM is normal and painless. No nuchal rigidity is noted.. 16:33 Respiratory: no respiratory distress, normal breath sounds. 16:33 CVS: regular pulse rate, regular rhythm, normal S1 and S2, no murmurs, strong peripheral pulses. 16:33 Abdomen: soft, non-tender, no organomegaly, bowel sounds hyperactive. 16:33 Back: normal inspection. 16:33 Skin: skin color is normal, warm, dry. 16:33 Extremities: The extremities have a grossly normal appearance, are non-tender, without acute ROM abnormalities. 16:33 Neuro: oriented x 3, cranial nerves normal as tested, no motor deficits, no sensory deficits. 16:33 Psych: normal mood. Vital Signs: 15:42 BP 124 / 71 (auto/); pml 15:44 Pulse 86 MON; Pulse Ox 92% ; pml 15:45 BP 124 / 71; Pulse 88; Resp 18; Temp 97.4(O); Pulse Ox 96% on 3 lpm NC; Pain 0/10; nb2 15:55 Weight 113.4 kg / 250 lbs; Height 6 ft. 1 in. (185.42 cm); pml 15:57 Pulse 84 MON; Pulse Ox 98% ; pml 15:57 BP 142 / 64 (auto/); pml 16:12 Pulse 84 MON; Pulse Ox 99% ; pml 16:12 BP 144 / 58 (auto/); pml 16:27 Pulse 82 MON; Pulse Ox 99% ; pml 16:27 BP 141 / 65 (auto/); pml 16:42 Pulse 82 MON; Pulse Ox 99% ; pml 16:42 BP 133 / 68 (auto/); pml 16:57 Pulse 88 MON; Pulse Ox 100% ; pml 16:57 BP 133 / 62 (auto/); pml 17:12 Pulse 84 MON; Pulse Ox 99% ; pml 17:12 BP 143 / 68 (auto/); pml 17:35 Pulse 86 MON; Pulse Ox 98% ; pml 17:36 BP 138 / 63 (auto/); pml 17:42 Pulse 82 MON; Pulse Ox 99% ; pml 17:42 BP 138 / 65 (auto/); pml 17:57 Pulse 84 MON; Pulse Ox 100% ; pml 17:57 BP 126 / 53 (auto/); pml 18:12 Pulse 78 MON; Pulse Ox 100% ; pml 18:12 BP 127 / 58 (auto/); pml 18:27 Pulse 84 MON; Pulse Ox 100% ; pml 18:27 BP 127 / 61 (auto/); pml 18:42 Pulse 82 MON; Pulse Ox 99% ; pml 18:42 BP 127 / 58 (auto/); pml 18:57 Pulse 80 MON; Pulse Ox 99% ; mlc 18:57 BP 120 / 59 (auto/); mlc 19:12 BP 117 / 58 (auto/); mlc 19:12 Pulse 78 MON; Pulse Ox 99% ; mlc 19:27 Pulse 82 MON; Pulse Ox 100% ; mlc 19:27 BP 118 / 56 (auto/); mlc 19:42 BP 111 / 55 (auto/); mlc 19:42 Pulse 82 MON; Pulse Ox 99% ; mlc 19:57 Pulse 78 MON; Pulse Ox 100% ; mlc 19:57 BP 118 / 58 (auto/); mlc 20:12 BP 117 / 56 (auto/); mlc 20:12 Pulse 80 MON; Pulse Ox 100% ; mlc 20:27 Pulse 78 MON; Pulse Ox 99% ; mlc 20:27 BP 112 / 53 (auto/); mlc 21:01 Pulse 80 MON; Pulse Ox 100% ; mlc 21:13 BP 110 / 53 (auto/); mlc 21:13 Pulse 88 MON; Pulse Ox 99% ; mlc 21:57 BP 131 / 61 (auto/); mlc 21:57 Pulse 80 MON; Pulse Ox 99% ; mlc 22:10 BP 125 / 59; Pulse 87; Resp 18; Temp 97.1; Pulse Ox 99% on 2 lpm NC; Pain 0/10; mlc 15:55 Body Mass Index 32.98 (113.40 kg, 185.42 cm) pml MDM: 15:49 Fingerstick Blood Sugar Ordered. EDMS 15:55 D50W 50 ml IVP once; (1 amp) ordered. pml 16:08 Fingerstick Blood Sugar Ordered. EDMS 16:27 IV Saline Lock ordered. pc 16:27 Ondansetron 4 mg IVP once ordered. pc 16:27 NS 0.9% 500 ml IV at bolus once ordered. pc 16:28 Stool samples ordered. pc 16:29 CBC with Diff Ordered. EDMS 16:29 MED Profile Ordered. EDMS 16:29 Fingerstick Blood Sugar Reviewed. pc 16:29 Fingerstick Blood Sugar Reviewed. pc 16:33 Differential Diagnosis: VGE, dehydration, hypoglycemia - resolved. Plan: labs, IVF, pc labs. 16:51 CBC with Diff Reviewed. pc 16:51 MED Profile Reviewed. pc 16:53 Accucheck hourly ordered. pc 17:02 Abdomen, Flat\\E\\Upright,PA Chest Ordered. EDMS 17:02 ECG WITH READING ER PHYS+CARDIAG ordered. EDMS 17:07 Fingerstick Blood Sugar Ordered. EDMS 17:17 Fingerstick Blood Sugar Reviewed. pc 17:17 Data reviewed: old medical records, vital signs, nurses notes, EKG(s), lab test pc results, all radiology studies and available results. Test interpretation: EKG. Test interpretation: LAB - all labs as ordered have been reviewed, interpreted and considered in the overall management of the clinical presentation;. 17:18 BED REQUEST+ADM ordered. EDMS 17:39 D5-NS 1000 ml IV at 100 mL/hr once ordered. pc 17:39 D50W 50 ml IVP once; (1 amp) ordered. pc 18:04 Fingerstick Blood Sugar Reviewed. pc 18:43 Test interpretation: X-RAY - interpreted by me, 3-view abdomen series; no acute pc disease. The patient has been re-examined and re-evaluated. The patient's symptoms have mildly improved after treatment, However, his FSBS drops within an hour after glucose administration due to glipizide. His creatinine has increased from his baseline of 1.8 to 3.15 and will require admission for hydration and continued hypoglycemia management. 18:45 Physician consultation: Dr. Lorna Iraheta regarding admission. Disposition: The pc historical points, examination findings, and any diagnostic results supporting the provided diagnosis, were discussed with the patient or legal guardian. The need for further work-up and/or treatment in the hospital was explained. 19:12 Written Provider Order was scanned into [facility] and attached to record. ml3 19:13 Fingerstick Blood Sugar Ordered. EDMS 19:13 D10 in Water 1000 ml IV at 100 mL/hr continuous ordered. mlc 20:00 Admission / Observation Status ordered. EDMS 20:01 FULL LIQUIDS DIET ordered. EDMS 20:01 COMPLETE COMPHRENSIVE METABOLI Ordered. EDMS 20:01 BASIC METABOLIC PROFILE Ordered. EDMS 20:01 MAGNESIUM LEVEL Ordered. EDMS 20:01 BLOOD CULTURES Ordered. EDMS 20:01 GASTROINTESTINAL (GI) PANEL Ordered. EDMS 20:32 Financial registration complete. [email or web address] 20:32 [facility] Payment Agreement was scanned into [facility] and attached to record. [email or web address] 20:58 Admission / Observation Status ordered. EDMS 21:15 Fingerstick Blood Sugar Ordered. EDMS 21:44 Fingerstick Blood Sugar Ordered. EDMS 21:44 D50W 25 ml IVP once; (0.5 amp) ordered. mlc 22:13 Fingerstick Blood Sugar Ordered. EDMS 03/11 09:38 ECG/EKG was scanned into [facility] and attached to record. EC/08 17:17 Rate is 86 beats/min. Rhythm is regular, Normal Sinus Rhythm. Left axis deviation pc noted. QRS is negative in leads II, aVF. AK interval is prolonged at 208 msec. QRS interval is prolonged at 153 msec. QT interval is normal. Q waves are Old in lead aVL. T waves are Normal. No ST changes noted. Clinical impression: Normal Sinus Rhythm, RBBB, LAFB, and 1st degree heart block. No change from previous ECG in August,. Point of Care Testing: Blood Glucose: 18:29 Blood Glucose: 91 mg/dL; ld5 19:07 Blood Glucose: 62 mg/dL; mlc 19:50 Blood Glucose: 58 mg/dL; mlc 21:08 Blood Glucose: 51 mg/dL; mlc 21:37 Blood Glucose: 50 mg/dL; mlc 22:06 Blood Glucose: 88 mg/dL; mlc Ranges: Administered Medications: 15:50 Drug: D50W 50 ml [dextrose 50 % in water (D50W) intravenous solution (50 mL)] Route: pml IVP; Site: left antecubital; 16:35 Drug: Ondansetron 4 mg [ondansetron HCl 2 mg/mL intravenous solution (2 mL)] Route: pml IVP; Site: left antecubital; 16:35 Drug: NS 0.9% 500 ml [sodium chloride 0.9 % injection solution] Route: IV; Rate: bolus; pml Site: left antecubital; 17:40 Drug: D50W 50 ml [dextrose 50 % in water (D50W) intravenous solution (50 mL)] Route: pml IVP; Site: left antecubital; 17:49 Drug: D5-NS 1000 ml [dextrose 5 % and 0.9 % sodium chloride intravenous solution] [facility] Route: IV; Rate: 100 mL/hr; Site: left antecubital; 19:31 Drug: D10 in Water 1000 ml [dextrose 10 % in water (D10W) intravenous solution] Route: mlc IV; Rate: 100 mL/hr; Site: left antecubital; 21:44 Drug: D50W 25 ml [dextrose 50 % in water (D50W) intravenous syringe (25 mL)] Route: mlc IVP; Site: left antecubital; Critical Care Time: 18:45 Critical care time: Bedside Care: 20 minutes, Consultation: 10 minutes, Family pc Intervention: 10 minutes. Total time: 40 minutes Signatures: Dispatcher [employer] EDBlade Alfaro MD MD pc Santa Doyle, Reg Reg gb Ame Valdes, Master Of Cerem[employer] Unit ml3 Simona White RN RN ld5 Maxine Gordon RN RN [facility] Ronit Martinez RN RN [facility] Priya Nguyen, Reg Reg [email or web address] The chart was reviewed and I authenticate all verbal orders and agree with the evaluation and treatment provided.Corrections: (The following items were deleted from the chart) 16:03 16:00 Home Meds: glipizide 10 mg Oral tab three times a day; ld5 ld5 16:03 16:00 Home Meds: Lantus 100 unit/mL Sub-Q soln 36 unit daily; ld5 ld5 16:03 16:00 Home Meds: Novolog 100 unit/mL Sub-Q soln 12 unit three times a day; ld5 ld5 18:47 18:43 The patient has been re-examined and re-evaluated. The patient's symptoms have pc mildly improved after treatment, pc 20:01 20:01 GASTROINTESTINAL (GI) PANEL ordered. EDMS EDMS 20:01 20:01 GASTROINTESTINAL (GI) PANEL ordered. EDMS EDMS Attachments: 19:12 Written Provider Order ml3 20:32 [facility] Payment Agreement [email or web address] 03/11 09:38 ECG/EKG gb Chart Complete MTDD
--- NOTE | 2016-03-12 23:14 | EDDOCDS ---
Nurse's Notes [facility] Name: Davin Hussein Age: 75 yrs Sex: Male : 1940 Arrival Date: 03/10/2016 Time: 15:33 Bed 10 Private MD: Diagnosis: Dehydration;Other viral enteritis;Acute kidney failure;Drug-induced hypoglycemia without coma-glipizide;Type 2 diabetes mellitus Presentation: 03/10 15:51 Presenting complaint: EMS states: ems called for low blood sugars - found pt with blood pml glucose of 71 - pt states he is a type 1 diabetic and has had 2 days of diarrhea and lower than normal blood glucose. EMS unable to establish IV access, PO glucose solution with no change, glucose 38 on arrival to [facility]. pt alert and oriented. Adult Sepsis Screening: The patient does not have new or worsening altered mentation. Patient's respiratory rate is less than 22. Systolic blood pressure is greater than 100. Patient has a qSOFA score of 0- Negative Sepsis Screen. Suicide/Homicide risk assessment- the patient denies having any suicidal and/or homicidal ideations and does not present with any other emotional, behavioral or mental health complaints. 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 Transition of care: patient was not received from another setting of care. 15:51 Acuity: MONA Level 3 pml 15:51 Method Of Arrival: Ambulance pml Triage Assessment: 15:51 General: Appears in no apparent distress, comfortable, Behavior is appropriate for age, pml cooperative. Pain: Denies pain. The patient is triaged at the bedside. See Assessment in Nurses Notes section of ED record. Neurological: Level of Consciousness is awake, alert, Oriented to person, place, time. Cardiovascular: Capillary refill < 3 seconds Rhythm is sinus rhythm No ectopy. Respiratory: Airway is patent Respiratory effort is even, unlabored, Respiratory pattern is regular, symmetrical. GI: Abdomen is non- distended obese, Abd is soft X 4 quads Abd is tender to palpation in left upper quadrant and left lower quadrant Reports diarrhea, tolerance of fluids, x 4 over last 2 days. Derm: Skin is pink, warm & dry. Historical: - Allergies: no known allergies; - Home Meds: 1. Oxygen 3LNC Continuous 2. Tylenol Arthritis Pain 650 mg oral TbER 1 tabs twice a day (Last dose: 03/10/2016) 3. albuterol sulfate 2.5 mg /3 mL (0.083 %) Inhl nebu 3 mL 3 times per day (Last dose: 03/10/2016 12:00) 4. aspirin 81 mg Oral TbEC 1 tab once daily (Last dose: 03/10/2016) 5. clonidine HCl 0.1 mg Oral tab 1 tab 2 times per day (Last dose: 03/10/2016) 6. colchicine 0.6 mg Oral tab as needed 7. Complete 50+ oral 1 tab daily (Last dose: 03/10/2016) 8. ferrous sulfate 325 mg (65 mg iron) Oral tab twice a day (Last dose: 03/10/2016) 9. furosemide 40 mg oral tab 1 tab Mon, Wed, Fri (Last dose: 03/08/2016) 10. hydralazine 25 mg Oral tab 1 tab 2 times per day (Last dose: 03/10/2016) 11. hydrochlorothiazide 12.5 mg Oral cap 1 cap once daily (Last dose: 03/10/2016) 12. hydroxyzine pamoate 50 mg oral cap 1 cap nightly (Last dose: 03/09/2016) 13. labetalol 200 mg Oral tab 1 tab 2 times per day (Last dose: 03/10/2016) 14. losartan 50 mg oral tab 1 tab once daily (Last dose: 03/10/2016) 15. nifedipine 60 mg Oral tr24 2 tabs once daily (Last dose: 03/10/2016) 16. omeprazole 20 mg Oral cpDR 1 cap once daily (Last dose: 03/10/2016) 17. Proventil 90 mcg/actuation inhalation aero 2 puffs as needed 18. simvastatin 40 mg Oral tab 0.5 tab nightly (Last dose: 03/09/2016) 19. Spiriva with HandiHaler 18 mcg Inhl CpDv 1 cap once daily (Last dose: 03/10/2016) 20. Symbicort 160-4.5 mcg/actuation inhalation HFAA 2 puffs 2 times per day (Last dose: 03/10/2016) 21. terazosin 5 mg oral cap nightly (Last dose: 03/09/2016) 22. acetaminophen-codeine 300-60 mg Oral tab 1 tab as needed 23. Vitamin C 500 mg Oral tab 500 mg daily (Last dose: 03/10/2016) 24. Vitamin D3 1,000 unit oral tab daily (Last dose: 03/10/2016) 25. glipizide 10 mg Oral tab three times a day (Last dose: 03/10/2016) 26. Lantus 100 unit/mL Sub-Q soln 36 unit daily (Last dose: 03/08/2016) 27. Novolog 100 unit/mL Sub-Q soln 12 unit three times a day (Last dose: 03/08/2016) - PMHx: CHF; COPD; Diabetes - IDDM: controlled; GERD; Gout; High Cholesterol; Hypertension; - PSHx: Colon Resection; Appendectomy; Cholecystectomy; bilateral knee replacements; - The history from nurses notes was reviewed: and I agree with what is documented. - Social history: Smoking status: Patient states former smoker of tobacco. No barriers to communication noted, The patient speaks fluent Wolof, Speaks appropriately for age. - Family history: Not pertinent. - : The pt / caregiver states he / she is not on anticoagulants. Home medication list is obtained from the patient. - Hospitalizations: : No recent hospitalization is reported. - Exposure Risk Screening:: None identified. - Immunization history:: All immunizations up-to-date. - Social history:: the patient is a former smoker, the patient formerly used alcohol. Screenin:54 Screening information is obtained from the patient. Fall risk: No risks identified. pml Assistance ADL's: requires no assistance with activities of daily living. Abuse/DV Screen: The patient / caregiver reports he/she is: not in a situation that causes fear, pain or injury. Nutritional screening: No deficits noted. Advance Directives: Currently, there is no health care proxy. home support is adequate. Assessment: 15:54 General: see triage note. pml 17:02 General: Appears in no apparent distress, Behavior is appropriate for age, cooperative. pml Pain: Denies pain. Neurological: Level of Consciousness is awake, alert, Oriented to person, place, time. Cardiovascular: Capillary refill < 3 seconds Rhythm is sinus rhythm No ectopy. Respiratory: Airway is patent Respiratory effort is even, unlabored. Derm: Skin is pink, warm & dry. 17:02 General: blood glucose 68 - MD Jason snider, PO orange juice provided as per MD Tirado pml orders. 17:35 General: reopeat blood glucose 48 - MD Chafe aware, new orders obtained and pml administered as indicated on emar. 18:29 General: Hospitalist in to assess pt. ld5 19:16 General: Appears in no apparent distress, comfortable, Behavior is cooperative, mlc pleasant, Reports fatigue for. Pain: Denies pain. Neurological: Level of Consciousness is awake, alert, Oriented to person, place, time. Respiratory: Airway is patent Respiratory effort is even, unlabored, Respiratory pattern is regular. Derm: Skin is pink, warm & dry. 19:20 General: Dr. Iraheta made aware of FS of 62. Order obtained. . mlc 19:31 Reassessment: Patient appears in no apparent distress at this time. Patient denies pain mlc at this time. IV fluids infusing per order . 19:50 Reassessment: Patient appears in no apparent distress at this time. Patient denies pain mlc at this time. no changes since prior . 20:30 Reassessment: Dr. Iraheta notified of FS of 60. pt given orange juice. . mlc 21:03 Reassessment: pt repositioned in bed, pt c/o of feeling uncomfortable in bed. pt mlc refuses to sit up in bed due to back pain. pt refusing to eating jello. . 21:18 Reassessment: pt given OJ, drinking juice. pt offers no complaints. . mlc 21:44 Reassessment: Patient appears in no apparent distress at this time. Patient denies pain mlc at this time. pt offers no complaints. pt medicated per order. resp easy/unlabored. IV fluids infusing per order. 22:07 General: Appears in no apparent distress, comfortable, Behavior is cooperative. mlc Neurological: Level of Consciousness is awake, alert, Oriented to person, place, time. Respiratory: Airway is patent Respiratory effort is even, unlabored, Respiratory pattern is regular. Derm: Skin is pink, warm & dry. Vital Signs: 15:42 BP 124 / 71 (auto/); pml 15:44 Pulse 86 MON; Pulse Ox 92% ; pml 15:45 BP 124 / 71; Pulse 88; Resp 18; Temp 97.4(O); Pulse Ox 96% on 3 lpm NC; Pain 0/10; nb2 15:55 Weight 113.4 kg; Height 6 ft. 1 in. (185.42 cm); pml 15:57 Pulse 84 MON; Pulse Ox 98% ; pml 15:57 BP 142 / 64 (auto/); pml 16:12 Pulse 84 MON; Pulse Ox 99% ; pml 16:12 BP 144 / 58 (auto/); pml 16:27 Pulse 82 MON; Pulse Ox 99% ; pml 16:27 BP 141 / 65 (auto/); pml 16:42 Pulse 82 MON; Pulse Ox 99% ; pml 16:42 BP 133 / 68 (auto/); pml 16:57 Pulse 88 MON; Pulse Ox 100% ; pml 16:57 BP 133 / 62 (auto/); pml 17:12 Pulse 84 MON; Pulse Ox 99% ; pml 17:12 BP 143 / 68 (auto/); pml 17:35 Pulse 86 MON; Pulse Ox 98% ; pml 17:36 BP 138 / 63 (auto/); pml 17:42 Pulse 82 MON; Pulse Ox 99% ; pml 17:42 BP 138 / 65 (auto/); pml 17:57 Pulse 84 MON; Pulse Ox 100% ; pml 17:57 BP 126 / 53 (auto/); pml 18:12 Pulse 78 MON; Pulse Ox 100% ; pml 18:12 BP 127 / 58 (auto/); pml 18:27 Pulse 84 MON; Pulse Ox 100% ; pml 18:27 BP 127 / 61 (auto/); pml 18:42 Pulse 82 MON; Pulse Ox 99% ; pml 18:42 BP 127 / 58 (auto/); pml 18:57 Pulse 80 MON; Pulse Ox 99% ; mlc 18:57 BP 120 / 59 (auto/); mlc 19:12 BP 117 / 58 (auto/); mlc 19:12 Pulse 78 MON; Pulse Ox 99% ; mlc 19:27 Pulse 82 MON; Pulse Ox 100% ; mlc 19:27 BP 118 / 56 (auto/); mlc 19:42 BP 111 / 55 (auto/); mlc 19:42 Pulse 82 MON; Pulse Ox 99% ; mlc 19:57 Pulse 78 MON; Pulse Ox 100% ; mlc 19:57 BP 118 / 58 (auto/); mlc 20:12 BP 117 / 56 (auto/); mlc 20:12 Pulse 80 MON; Pulse Ox 100% ; mlc 20:27 Pulse 78 MON; Pulse Ox 99% ; mlc 20:27 BP 112 / 53 (auto/); mlc 21:01 Pulse 80 MON; Pulse Ox 100% ; mlc 21:13 BP 110 / 53 (auto/); mlc 21:13 Pulse 88 MON; Pulse Ox 99% ; mlc 21:57 BP 131 / 61 (auto/); mlc 21:57 Pulse 80 MON; Pulse Ox 99% ; mlc 22:10 BP 125 / 59; Pulse 87; Resp 18; Temp 97.1; Pulse Ox 99% on 2 lpm NC; Pain 0/10; mlc 15:55 Body Mass Index 32.98 (113.40 kg, 185.42 cm) pml Vitals: 15:45 Log In Time N/A - ambulance arrival. nb2 ED Course: 15:34 Patient visited by Nayeli Quiñonez PCA. ar3 15:34 Patient moved to Waiting ar3 15:41 Maxine Gordon,RN is Primary Nurse. ar3 15:42 Patient moved to 10 ar3 15:45 Placed in gown. Bed in low position. Call light in reach. Side rails up X2. Cardiac nb2 monitor on. Pulse ox on. NIBP on. 15:46 Patient visited by Nita Hand. nb2 15:52 Triage Initiated pml 15:54 The patient / caregiver is instructed regarding the plan of care and ED course. pml 15:54 Inserted peripheral IV: 20gauge IV in left antecubital area and blood collected. pml Patient tolerated the procedure well. 15:55 Patient visited by Maxine Gordon RN. pml 16:00 Blade Gomez MD is Attending Physician. pc 16:09 Fingerstick Blood Sugar Sent. pml 16:27 Patient visited by Blade Gomez MD. pc 16:50 EKG done. (by ED staff). Reviewed by Blade Gomez MD. nb2 17:03 Patient visited by Maxine Gordon RN. pml 17:26 Patient visited by Nita Hand. nb2 17:26 Patient visited by Nita Hand. nb2 17:50 Patient visited by Maxine Gordon RN. pml 18:30 Patient visited by Simona White RN. ld5 18:50 Lorna Iraheta is Hospitalizing Provider. pc 18:51 Patient visited by Maxine Gordon,CECILIO. pml 19:00 Ronit Martinez,CECILIO is Primary Nurse. mlc 19:03 Patient visited by Alexys Pascual PCA. kb5 19:12 Written Provider Order was scanned into [employer] and attached to record. ml3 19:14 Abdomen, Flat\E\Upright,PA Chest Returned. EDMS 19:21 Patient visited by Ronit Martinez RN. mlc 19:32 Patient visited by Ronit Martinez RN. mlc 19:49 EKG-ADULT Returned. EDMS 19:51 Patient visited by Ronit Martinez RN. mlc 20:32 [facility] [place] was [facility] into [facility] and attached to record. ks16 21:03 Patient visited by Ronit Martinez RN. mlc 21:45 Patient visited by Ronit Martinez RN. mlc 21:45 No procedures done that require assistance. mlc 22:08 Patient visited by Ronit Martinez RN. mlc 03/11 09:38 ECG/EKG was scanned into [employer] and attached to record. gb Administered Medications: 03/10 15:50 Drug: D50W 50 ml [dextrose 50 % in water (D50W) intravenous solution (50 mL)] Route: pml IVP; Site: left antecubital; 16:35 Drug: Ondansetron 4 mg [ondansetron HCl 2 mg/mL intravenous solution (2 mL)] Route: pml IVP; Site: left antecubital; 16:35 Drug: NS 0.9% 500 ml [sodium chloride 0.9 % injection solution] Route: IV; Rate: bolus; pml Site: left antecubital; 17:40 Drug: D50W 50 ml [dextrose 50 % in water (D50W) intravenous solution (50 mL)] Route: pml IVP; Site: left antecubital; 17:49 Drug: D5-NS 1000 ml [dextrose 5 % and 0.9 % sodium chloride intravenous solution] pml Route: IV; Rate: 100 mL/hr; Site: left antecubital; 19:31 Drug: D10 in Water 1000 ml [dextrose 10 % in water (D10W) intravenous solution] Route: mlc IV; Rate: 100 mL/hr; Site: left antecubital; 21:44 Drug: D50W 25 ml [dextrose 50 % in water (D50W) intravenous syringe (25 mL)] Route: mlc IVP; Site: left antecubital; Point of Care Testing: Blood Glucose: 18:29 Blood Glucose: 91 mg/dL; ld5 19:07 Blood Glucose: 62 mg/dL; mlc 19:50 Blood Glucose: 58 mg/dL; mlc 21:08 Blood Glucose: 51 mg/dL; mlc 21:37 Blood Glucose: 50 mg/dL; mlc 22:06 Blood Glucose: 88 mg/dL; mlc Ranges: Order Results: Lab Order: Fingerstick Blood Sugar; SPEC'M 03/10/16 15:42 Test: BEDSIDE GLUCOSE; Value: 37; Range: 83-110; Abnormal: Critical Low; Units: MG/DL; Status: F Lab Order: Fingerstick Blood Sugar; SPEC'M 03/10/16 15:57 Test: BEDSIDE GLUCOSE; Value: 147; Range: 83-110; Abnormal: Above high normal; Units: MG/DL; Status: F Lab Order: CBC with Diff; SPEC' 03/10/16 15:48 Test: WHITE BLOOD COUNT; Value: 11.3; Range: 4.0-10.0; Abnormal: Above high normal; Units: K/mm3; Status: F Test: RED BLOOD COUNT; Value: 3.70; Range: 4.30-6.10; Abnormal: Below low normal; Units: M/mm3; Status: F Test: HEMOGLOBIN; Value: 9.9; Range: 14.0-18.0; Abnormal: Below low normal; Units: g/dl; Status: F Test: HEMATOCRIT; Value: 31.2; Range: 42.0-52.0; Abnormal: Below low normal; Units: %; Status: F Test: MEAN CORPUSCULAR VOLUME; Value: 84.4; Range: 80.0-96.0; Units: fl; Status: F Test: MEAN CORPUSCULAR HEMOGLOBIN; Value: 26.7; Range: 27.0-33.0; Abnormal: Below low normal; Units: pg; Status: F Test: MEAN CORPUSCULAR HGB CONC; Value: 31.6; Range: 32.0-36.5; Abnormal: Below low normal; Units: g/dl; Status: F Test: RED CELL DISTRIBUTION WIDTH; Value: 16.4; Range: 11.5-14.5; Abnormal: Above high normal; Units: %; Status: F Test: PLATELET COUNT, AUTOMATED; Value: 267; Range: 150-450; Units: k/mm3; Status: F Test: NEUTROPHILS %; Value: 80.3; Range: 36.0-66.0; Abnormal: Above high normal; Units: %; Status: F Test: LYMPH %; Value: 8.5; Range: 24.0-44.0; Abnormal: Below low normal; Units: %; Status: F Test: MONO %; Value: 4.7; Range: 0.0-5.0; Units: %; Status: F Test: EOS %; Value: 4.0; Range: 0.0-3.0; Abnormal: Above high normal; Units: %; Status: F Test: BASO %; Value: 1.1; Range: 0.0-1.0; Abnormal: Above high normal; Units: %; Status: F Test: LARGE UNSTAINED CELL %; Value: 1.5; Range: 0.0-4.0; Units: %; Status: F Test: NEUTROPHILS #; Value: 9.1; Range: 1.8-7.7; Abnormal: Above high normal; Units: K/mm3; Status: F Test: LYMPH #; Value: 1.1; Range: 1.5-4.5; Abnormal: Below low normal; Units: K/mm3; Status: F Test: MONO #; Value: 0.5; Range: 0.0-0.8; Units: K/mm3; Status: F Test: EOS #; Value: 0.4; Range: 0.0-0.50; Units: K/mm3; Status: F Test: BASO #; Value: 0.1; Range: 0.0-0.2; Units: K/mm3; Status: F Test: LARGE UNSTAINED CELL #; Value: 0.2; Range: 0.0-0.4; Units: K/mm3; Status: F Lab Order: [facility] Profile; [facility]'M 03/10/16 15:48 Test: GLUCOSE, FASTING; Value: 34; Range: 83-110; Abnormal: Critical Low; Units: MG/DL; Status: F Test: BLOOD UREA NITROGEN; Value: 55; Range: 7-18; Abnormal: Above high normal; Units: MG/DL; Status: F Test: CREATININE FOR GFR; Value: 3.15; Range: 0.70-1.30; Abnormal: Above high normal; Units: MG/DL; Status: F Test: GLOMERULAR FILTRATION RATE; Value: 20.5; Range: >42; Abnormal: Below low normal; Status: F Test: SODIUM LEVEL; Value: 140; Range: 136-145; Units: MEQ/L; Status: F Test: POTASSIUM SERUM; Value: 4.6; Range: 3.5-5.1; Units: MEQ/L; Status: F Test: CHLORIDE LEVEL; Value: 103; Range: 98-107; Units: MEQ/L; Status: F Test: CARBON DIOXIDE LEVEL; Value: 25; Range: 21-32; Units: MEQ/L; Status: F Test: ANION GAP; Value: 12; Range: 8-16; Units: MEQ/L; Status: F Test: CALCIUM LEVEL; Value: 8.6; Range: 8.8-10.2; Abnormal: Below low normal; Units: MG/DL; Status: F Test Note: ; Units are mL/min/1.73 m2 Chronic Kidney Disease Staging per NKF: Stage I & II GFR >=60 Normal to Mildly Decreased Stage III GFR 30-59 Moderately Decreased Stage IV GFR 15-29 Severely Decreased Stage V GFR <15 Very Little GFR Left ESRD GFR <15 on HADOOP CONSULTANT Lab Order: Fingerstick Blood Sugar; [facility]03/10/16 16:58 Test: BEDSIDE GLUCOSE; Value: 68; Range: 83-110; Abnormal: Below low normal; Units: MG/DL; Status: F Lab Order: Fingerstick Blood Sugar; [facility] 03/10/16 17:38 Test: BEDSIDE GLUCOSE; Value: 48; Range: 83-110; Abnormal: Below low normal; Units: MG/DL; Status: F Lab Order: Fingerstick Blood Sugar; [facility] 03/10/16 18:28 Test: BEDSIDE GLUCOSE; Value: 91; Range: 83-110; Units: MG/DL; Status: F Lab Order: Fingerstick Blood Sugar; [facility]03/10/16 19:04 Test: BEDSIDE GLUCOSE; Value: 62; Range: 83-110; Abnormal: Below low normal; Units: MG/DL; Status: F Test Note: ; Doctor Notified Lab Order: Fingerstick Blood Sugar; [facility] 03/10/16 19:48 Test: BEDSIDE GLUCOSE; Value: 58; Range: 83-110; Abnormal: Below low normal; Units: MG/DL; Status: F Test Note: ; Doctor Notified Lab Order: Fingerstick Blood Sugar; SPEC'M 03/10/16 21:07 Test: BEDSIDE GLUCOSE; Value: 51; Range: 83-110; Abnormal: Below low normal; Units: MG/DL; Status: F Test Note: ; RN Notified Dr Order not to Draw Lab Order: Fingerstick Blood Sugar; SPEC'M 03/10/16 21:36 Test: BEDSIDE GLUCOSE; Value: 50; Range: 83-110; Abnormal: Below low normal; Units: MG/DL; Status: F Lab Order: Fingerstick Blood Sugar; SPEC'M 03/10/16 22:05 Test: BEDSIDE GLUCOSE; Value: 88; Range: 83-110; Units: MG/DL; Status: F Radiology Order: Abdomen, Flat\E\Upright,PA Chest Test: Abdomen, Flat\E\Upright,PA Chest REASON FOR EXAMINATION: Abdomen Pain; Abdominal series: Four views.; ; History: Abdominal pain.; ; Findings: AP chest radiograph shows no evidence of infiltrate or free; subdiaphragmatic air. Heart is at the upper range of normal in size. The aorta; is calcific and tortuous.; ; Supine views of the abdomen demonstrate air and fluid dilation of the stomach.; There is some air and stool in a nondistended colon. No small bowel dilation is; seen. Cross-table lateral view shows no evidence of free air. A large air fluid; level is seen in the stomach.; ; Impression:; ; Gas and fluid dilated stomach. 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 pc 21:45 No special radiology studies were completed. mlc 22:07 Discharge Assessment: Patient awake, alert and oriented x 3. No cognitive and/or mlc functional deficits noted. Patient verbalized understanding of disposition instructions. patient administered narcotics - no. The following High Risk Discharge criteria are identified: None. Admitted to ICU accompanied by nurse, accompanied by tech, via stretcher, on monitor, with chart. Condition: stable. Admission hand-off: Report called to CECILIO Darden. Property :Personal belongings accompany Pt. 22:12 Patient left the ED. [facility] [place] Signatures: Dispatcher [employer] HANNAHMS Blade Gomez MD MD Santa Doyle, Reg Reg gb Ame Valdes, Electrical & Instrumentation Supervisor Unit ml3 Alexys Pascual, WEB MARKETING ANALYST WEB MARKETING ANALYST kb5 Nayeli Quiñonez, WEB MARKETING ANALYST WEB MARKETING ANALYST ar3 Simona White RN RN ld5 Maxine Gordon RN RN pml Booth, Mandy, RN RN [facility] [place] Priya Nguyen, Reg Reg [id number] Nita Hand2 Corrections: (The following items were deleted from the chart) 16:03 16:00 Home Meds: glipizide 10 mg Oral tab three times a day; ld5 ld5 16:03 16:00 Home Meds: Lantus 100 unit/mL Sub-Q soln 36 unit daily; ld5 ld5 16:03 16:00 Home Meds: Novolog 100 unit/mL Sub-Q soln 12 unit three times a day; ld5 ld5 17:26 16:30 EKG done. (by ED staff). Reviewed by Blade Gomez MD nb2 nb2 Chart Complete MTDD
[2016-03-12] MEDS: ACETAMINOPHEN TAB 650MG DOSE (2X325MG) PO PRN (23:29)
[2016-03-13] MEDS: NS 1,000 ML IV SCH (02:23)
[2016-03-13 06:00] VITALS: BP 125/60
[2016-03-13] MEDS: HumaLOG INSULIN (NovoLOG) PER UNIT SC SCH ×3 (06:08→16:56)
[2016-03-13] MEDS ORDERED: ALBUTEROL SULFATE 2.5 MG/0.5 ML INH NEB SOLN NEB PRN (06:15)
[2016-03-13] MEDS: ALBUTEROL SULFATE 2.5 MG/0.5 ML INH NEB SOLN INH SCH ×3 (06:17→20:00)
[2016-03-13 06:46] LABS: MEAN CORPUSCULAR HEMOGLOBIN 27.6 pg (27.0-33.0); MEAN CORPUSCULAR HGB CONC 32.7 g/dl (32.0-36.5); MEAN CORPUSCULAR VOLUME 84.2 fl (80.0-96.0); RED CELL DISTRIBUTION WIDTH 15.5 % (11.5-14.5); WHITE BLOOD COUNT 11.1 K/mm3 (4.0-10.0)
[2016-03-13 06:57] LABS: ALBUMIN 2.6 GM/DL (3.2-5.2); ALBUMIN/GLOBULIN RATIO 0.68 (1.00-1.93); BILIRUBIN,TOTAL 0.3 MG/DL (0.2-1.0); CALCIUM LEVEL 7.9 MG/DL (8.8-10.2); CREATININE FOR GFR 4.32 MG/DL (0.70-1.30); GLOMERULAR FILTRATION RATE 14.3 (>42); MAGNESIUM LEVEL 1.7 MG/DL (1.8-2.4); POTASSIUM SERUM 4.9 MEQ/L (3.5-5.1); TOTAL PROTEIN 6.4 GM/DL (6.4-8.2)
[2016-03-13] MEDS: SYMBICORT 160/4.5MCG INHALER 6GM INH SCH ×2 (07:31→20:39)
[2016-03-13] MEDS: TIOTROPIUM INHALER/CAPSULE (SPIRIVA) INH SCH (07:31)
[2016-03-13] MEDS: VITAMIN D 1,000 INTERNATIONAL UNITS TABLET PO SCH (08:48)
[2016-03-13] MEDS: NIFEdipine 60 MG XL TAB PO SCH (08:48)
[2016-03-13] MEDS: OMEPRAZOLE 20 MG CAP PO SCH (08:49)
[2016-03-13] MEDS: ASPIRIN 81 MG ENTERIC TAB PO SCH (08:49)
[2016-03-13] MEDS: FERROUS SULFATE 325MG TAB PO SCH ×2 (08:49→21:36)
[2016-03-13] MEDS: cloNIDine 0.1 MG TAB PO SCH ×2 (08:49→21:36)
[2016-03-13] MEDS: MULTIVITAMINS/MINERALS THERAP 1 TAB PO SCH (08:49)
[2016-03-13] MEDS: LABETALOL 200 MG TAB PO SCH ×2 (08:50→21:35)
[2016-03-13] MEDS: **hydrALAZINE HCL** 25 MG TAB PO SCH ×2 (08:50→21:36)
--- NOTE | 2016-03-13 10:34 | ECGEPIP ---
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
--- NOTE | 2016-03-13 10:44 | REP ---
ABDOMEN, FOUR VIEWS: HISTORY: Abdominal distention. COMPARISON: 03/10/2016. There is marked distention of the stomach, unchanged compared to the previous study. A small amount of air is present in small and large intestine. There are no air fluid levels or dilated loops of intestine. There is no pneumoperitoneum. IMPRESSION: There is marked distention of the stomach, unchanged compared to the previous study. Signed by Mir Pena MD 03/13/2016 10:53 A
--- NOTE | 2016-03-13 11:59 | IPNPDOC ---
Date of Service/Time Mar 10, 2016 at 15:33 Progress Note DATE OF ENCOUNTER: 03/13/2016 SUBJECTIVE: Patient was seen this morning at bedside. States that overnight he had a panic attack. He is stable now. His breathing appears to be more wheezy than it was compared to yesterday. He has been on intravenous fluids which has now been discontinued as he has history of COPD. He is currently nothing by mouth and has NG tube in place. He states that he continues to have diffuse abdominal pain and abdomen remains distended. No nausea, vomiting. He had a large bowel movement yesterday. No diarrhea. No fevers or chills. No chest pain. He does feel that his breathing is a little worse than it was yesterday. OBJECTIVE: Vital Signs Date Time Temp Pulse Resp B/P Pulse Ox O2 Delivery O2 Flow Rate FiO2 03/13/16 09:00 Nasal Cannula 3.0 03/13/16 08:50 81 142/63 03/13/16 06:00 96.3 24 95 I&O- Last 24 Hours up to 6 AM 03/13/16 06:00 Intake Total 1520 ml Output Total 1850 ml Balance -330 ml GENERAL: Awake and alert, in no acute distress HEENT: Normocephalic, atraumatic. Extraocular movements intact. Moist mucosa. NECK: Supple. Jugular veins are at the level of the jaw. HEART: Normal S1, S2. Regular rate and rhythm. No murmurs appreciated. LUNGS: Good air movement bilaterally. Positive for expiratory wheezing. No rales or rhonchi appreciated. ABDOMEN: Abdomen is distended. A little more firm than it was yesterday. Has mild diffuse tenderness to palpation. Bowel sounds are hypoactive. EXTREMITIES: No cyanosis or significant edema. Positive pedal pulses bilaterally. NEUROLOGIC: No new focal deficits. LABORATORY DATA: 03/13/16 06:15 Calcium Level 7.9 L, Aspartate Amino Transferase (AST/SGOT) 21, Alanine Aminotransferase (ALT/SGPT) 32, Alkaline Phosphatase 52, Total Bilirubin 0.3, Total Protein 6.4, Albumin 2.6 L, Anion Gap 12, Glomerular Filtration Rate 14.3L , Magnesium Level 1.7L, Red Blood Count 3.11 L, Mean Corpuscular Volume 84.2, Mean Corpuscular Hemoglobin 27.6, Mean Corpuscular Hemoglobin Concentration 32.7 , Red Cell Distribution Width 15.5 H MICROBIOLOGY: Culture shows no growth thus far. GI panel is negative. IMAGING: Renal ultrasound done on 03/12 revealed chronic renal disease, no hydronephrosis. Abdominal x-ray done on 03/12 revealed gas and fluid dilated stomach. Abdominal/pelvis CT on 03/12 showed gastric as well as small bowel distention suggesting possible early partial small bowel obstruction, no free air. Moderate fecal stasis and constipation involving the rectosigmoid. Abdominal x-ray done today shows marked distention of the stomach, unchanged from previous. ASSESSMENT AND PLAN: Mr. 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 1. Acute on chronic kidney disease stage III, probably secondary to prerenal etiology with history of vomiting and diarrhea. The patient's baseline creatinine is around 2. His renal ultrasound does show findings for chronic renal disease, no hydronephrosis or other acute findings. His urinalysis did not reveal any protein or significant RBCs. He was reinitiated on IV fluids yesterday, however creatinine is slightly worse, from 4.16 to 4.32. Given his wheezing and history of COPD, intravenous fluids have been discontinued. He does not appear to be significantly volume overloaded at this time and we will need to continue to monitor renal function without any further intervention. Avoid nephrotoxic medications. 2. Hyperkalemia, resolved. He was given a dose of Lasix last night to assist with this. 3. Hyponatremia, improved with normal saline. Likely secondary to the intravenous fluids he previously received as his hypoglycemia was treated with D5W. 4. Abdominal distention with possible small bowel obstruction. Patient is currently nothing by mouth and has an NG tube in place. He apparently had a large bowel movement yesterday per nursing staff. Abdomen still is tender to be distended. Repeat abdominal x-ray was ordered for this morning which shows continued distention of the stomach, unchanged from previous study. Surgery is currently following and will defer management. 5. Hypertension. Blood pressure is stable. Continue home medications which include clonidine, hydralazine, labetalol, Procardia, and terazosin. Hydrochlorothiazide, Lasix and losartan held on admission secondary to acute kidney injury. 7. Chronic diastolic heart failure. Volume status will be monitored closely. Intravenous fluids have been discontinued. He does not appear to be significantly volume overloaded at this time. 9. Anemia in chronic kidney disease. Hemoglobin is currently stable. GME ATTESTATION GME ATTESTATION My preceptor for this patient encounter was physically present in the building during the encounter and was fully available. As needed, all aspects of the patient interview, examination, medical decision making process, and medical care plan development were reviewed and approved by the preceptor. Preceptor is aware and concurs with the plan as stated in the body of this note and will attest to such by his/her cosignature. JAKOB ARRIAZA DO Mar 13, 2016 11:59
--- NOTE | 2016-03-13 13:41 | REP ---
Clinical: Shortness of breath. Comparison: 03/10/2016. Findings: Cardiomegaly is appreciated along with diffuse chronic interstitial changes. Superimposed interstitial edema cannot definitively be excluded. No definite effusion or pneumothorax. There is suggestion for a nasogastric tube which cannot be followed passed the distal esophagus and may warrant reevaluation. Impression: 1. Cardiomegaly and chronic interstitial changes. Possible interstitial edema. 2. Suspected nasogastric tube cannot be completely evaluated and may warrant reevaluation. Signed by Johnny Berrios MD 03/13/2016 01:32 P
[2016-03-13 14:00] VITALS: BP 176/77
[2016-03-13] MEDS: ALBUTEROL SULFATE 2.5 MG/0.5 ML INH NEB SOLN NEB PRN ×2 (15:10→22:18)
--- NOTE | 2016-03-13 16:09 | IPNPDOC ---
Assessment/Plan Date Seen The patient was seen on 03/13/16. Problems Problems: (1) Acute kidney injury superimposed on CKD Status: Acute Problem Text: Patient's serum creatinine elevated in the 4s today, baseline around 2 Initially thought to be secondary to prerenal azotemia as the patient did present with diarrhea, however his serum creatinine has gotten worse despite IV fluid hydration Possibly secondary to underlying abdominal distention from constipation from ? Small bowel obstruction Ultrasound of the kidneys ordered-notable for medical renal disease Nephrotoxins held Nephrology consulted (2) Constipation Status: Acute Problem Text: CT scan of the abdomen suggestive of possible early partial small bowel obstruction-the patient does have risk for adhesions as he has had laparoscopic surgery in the past NG tube with minimal drainage noted today. We will keep the patient nothing by mouth Surgery on board (3) Diastolic CHF Status: Chronic Response to Treatment: Stable Problem Text: Currently appears clinically compensated Hold nephrotoxins including Lasix at this time Chest x-ray with no notable pleural effusions. (4) Occupational lung disease Status: Chronic Problem Text: Continue on albuterol, Symbicort, tiotropium (5) Diabetes Status: Chronic Problem Text: Continue on insulin sliding scale (6) Chronic anemia Status: Chronic Problem Text: Hemoglobin noted we will continue to monitor (7) Obesity Status: Chronic (8) ANKITA (obstructive sleep apnea) Status: Chronic (9) Gait instability Status: Chronic Problem Text: Physical therapy ordered (10) CAD in [place] artery Status: Chronic Problem Text: Continue aspirin, nel, simvastatin (11) Hypertension Status: Chronic Response to Treatment: Stable Problem Text: Continue current anti-hypertensive regimen. Plan / VTE VTE Prophylaxis Ordered?: Yes Subjective Review of Systems CC/HPI The patient is a 75-year-old male admitted with a reason for visit of [place] ( Acute Kidney Injury). General: Denies: Chills, Night Sweats Constitutional: Denies: Chills, Fever Eyes: Denies: Pain, Vision change ENT: Denies: Ear Pain, Head Aches Skin: Denies: Lesions, Rash Pulmonary: Denies: Cough, Dyspnea Cardiovascular: Denies: Chest Pain, Palpitations Gastrointestinal: Denies: Nausea, Vomiting Genitourinary: Denies: Dysuria, Frequency Hematologic: Denies: Bleeding Excessively, Bruising Musculoskeletal: Denies: Back Pain, Neck Pain Objective Physical Examination General Exam: Positive: Cooperative, No Acute Distress ENT Exam: Positive: Atraumatic, Mucous membr. moist/pink Chest Exam: Positive: Clear to auscultation, Diminished, Normal air movement, Negative: Rales Heart Exam: Positive: Normal S1, Normal S2, Rate Normal Abdomen Exam: Positive: BS Hypoactive, Other (distended), Negative: Hepatospenomegaly, Tenderness Extremity Exam: Negative: Tenderness Vital Signs/I&O Vital Signs Date Time Temp Pulse Resp B/P Pulse Ox O2 Delivery O2 Flow Rate FiO2 03/13/16 14:00 96.0 84 20 176/77 94 Nasal Cannula 3.0 I&O- Last 24 Hours up to 6 AM 03/13/16 06:00 Intake Total 1520 ml Output Total 1850 ml Balance -330 ml Laboratory Data Labs 24H Laboratory Tests 2 03/12/16 17:32: Bedside Glucose (Misc Panel) 127H 03/12/16 23:02: Bedside Glucose (Misc Panel) 115H 03/12/16 23:29: Troponin I < 0.02 03/13/16 05:29: Bedside Glucose (Misc Panel) 106 03/13/16 06:15: Blood Urea Nitrogen 68H, Creatinine 4.32H, Sodium Level 132L, Potassium Level 4.9, Chloride Level 96L, Carbon Dioxide Level 24, Calcium Level 7.9L, Aspartate Amino Transf (AST/SGOT) 21, Alanine Aminotransferase (ALT/SGPT) 32, Alkaline Phosphatase 52, Total Bilirubin 0.3, Total Protein 6.4, Albumin 2.6L, Albumin/ Globulin Ratio 0.68L, Anion Gap 12, Glomerular Filtration Rate 14.3L, Magnesium Level 1.7L 03/13/16 11:51: Bedside Glucose (Misc Panel) 103 CBC/BMP Laboratory Tests 03/13/16 06:15 Calcium Level 7.9 L, Aspartate Amino Transf (AST/SGOT) 21, Alanine Aminotransferase (ALT/SGPT) 32, Alkaline Phosphatase 52, Total Bilirubin 0.3, Total Protein 6.4, Albumin 2.6 L, Red Blood Count 3.11 L, Mean Corpuscular Volume 84.2, Mean Corpuscular Hemoglobin 27.6, Mean Corpuscular Hemoglobin Concent 32.7, Red Cell Distribution Width 15.5 H FSBS Laboratory Tests Test 03/12/16 17:32 03/12/16 23:02 03/13/16 05:29 03/13/16 11:51 Range/Units Bedside Glucose (Misc Panel) 127 115 106 103 83-110 MG/DL Microbiology Microbiology 03/10/16 Blood Culture - Preliminary, Resulted No Growth after 48 hours. All Specime... 03/12/16 Gastrointestinal Tract Panel (PCR) - Final, Complete 03/10/16 MRSA Screen - Final, Complete 03/12/16 Urine Culture, Received Pending MARY PEOPLES MD Mar 13, 2016 16:09
[2016-03-13] MEDS: SIMVASTATIN 20 MG TAB PO SCH (21:36)
[2016-03-13] MEDS: TERAZOSIN 5 MG CAP PO SCH (21:36)
[2016-03-13] MEDS: hydrOXYzine 50 MG TAB PO SCH (21:36)
[2016-03-13 22:00] VITALS: BP 160/70
[2016-03-14 04:51] VITALS: O2SAT 92
[2016-03-14] MEDS: ALBUTEROL SULFATE 2.5 MG/0.5 ML INH NEB SOLN NEB PRN (04:51)
[2016-03-14] MEDS: HumaLOG INSULIN (NovoLOG) PER UNIT SC SCH ×4 (05:32→17:46)
[2016-03-14 06:00] VITALS: BP 152/62
[2016-03-14 06:50] LABS: MEAN CORPUSCULAR HEMOGLOBIN 27.8 pg (27.0-33.0); MEAN CORPUSCULAR HGB CONC 32.9 g/dl (32.0-36.5); MEAN CORPUSCULAR VOLUME 84.4 fl (80.0-96.0); RED CELL DISTRIBUTION WIDTH 15.6 % (11.5-14.5); WHITE BLOOD COUNT 11.6 K/mm3 (4.0-10.0)
[2016-03-14 07:08] LABS: ALBUMIN 2.6 GM/DL (3.2-5.2); ALBUMIN/GLOBULIN RATIO 0.67 (1.00-1.93); BILIRUBIN,TOTAL 0.3 MG/DL (0.2-1.0); CALCIUM LEVEL 8.3 MG/DL (8.8-10.2); CREATININE FOR GFR 4.55 MG/DL (0.70-1.30); GLOMERULAR FILTRATION RATE 13.4 (>42); MAGNESIUM LEVEL 1.8 MG/DL (1.8-2.4); POTASSIUM SERUM 4.6 MEQ/L (3.5-5.1); TOTAL PROTEIN 6.5 GM/DL (6.4-8.2)
[2016-03-14] MEDS: ALBUTEROL SULFATE 2.5 MG/0.5 ML INH NEB SOLN INH SCH ×3 (07:34→20:00)
[2016-03-14] MEDS: TIOTROPIUM INHALER/CAPSULE (SPIRIVA) INH SCH (07:34)
[2016-03-14] MEDS: SYMBICORT 160/4.5MCG INHALER 6GM INH SCH ×2 (07:34→20:14)
[2016-03-14] MEDS: ASPIRIN 81 MG ENTERIC TAB PO SCH (09:42)
[2016-03-14] MEDS: VITAMIN D 1,000 INTERNATIONAL UNITS TABLET PO SCH (09:42)
[2016-03-14] MEDS: OMEPRAZOLE 20 MG CAP PO SCH (09:42)
[2016-03-14] MEDS: cloNIDine 0.1 MG TAB PO SCH ×2 (09:42→21:06)
[2016-03-14] MEDS: FERROUS SULFATE 325MG TAB PO SCH ×2 (09:42→21:06)
[2016-03-14] MEDS: **hydrALAZINE HCL** 25 MG TAB PO SCH ×2 (09:42→21:06)
[2016-03-14] MEDS: NIFEdipine 60 MG XL TAB PO SCH (09:42)
[2016-03-14] MEDS: LABETALOL 200 MG TAB PO SCH ×2 (09:43→21:06)
[2016-03-14] MEDS: LR 1,000 ML IV SCH (09:43)
[2016-03-14] MEDS: MULTIVITAMINS/MINERALS THERAP 1 TAB PO SCH (09:43)
--- NOTE | 2016-03-14 10:27 | REP ---
Clinical: Follow up small bowel obstruction. Technique: Supine views of the chest abdomen and pelvis along with cross-table lateral views of the abdomen. Findings: Frontal view of the chest suggests chronic changes as well as superimposed atelectasis. A nasogastric tube is identified extending minimally below the left hemidiaphragm and may warrant advancement. Supine and cross-table lateral views of the abdomen and pelvis demonstrate relatively nonspecific bowel gas pattern although mild small bowel distension cannot be excluded. There is no evidence for free air to suggest perforation. Skeletal structures demonstrate age-related degenerative changes. Evidence of prior cholecystectomy. Impression: Frontal view of the chest suggests chronic changes with possible superimposed atelectasis. The bowel gas pattern is relatively nonspecific although mild small bowel distension cannot be excluded and there is no definite evidence for perforation. Signed by Johnny Berrios MD 03/14/2016 10:19 A
--- NOTE | 2016-03-14 10:45 | IPNPDOC ---
Date of Service/Time Mar 10, 2016 at 15:33 Progress Note DATE OF ENCOUNTER: 03/14/2016 SUBJECTIVE: Patient was seen this morning at bedside. He reports that his breathing is about the same. Given that patient is nothing by mouth and has NG tube in place, we'll resume IV fluids. He continues to have diffuse abdominal pain and abdomen remains distended. No nausea or vomiting. He denies any bowel movements yesterday or this morning. No fevers or chills. No chest pain. OBJECTIVE: Vital Signs Date Time Temp Pulse Resp B/P Pulse Ox O2 Delivery O2 Flow Rate FiO2 03/14/16 09:43 92 152/62 03/14/16 06:00 97.2 22 93 Nasal Cannula 3.0 I&O- Last 24 Hours up to 6 AM 03/14/16 06:00 Intake Total 0 ml Output Total 2050 ml Balance -2050 ml GENERAL: Awake and alert, in no acute distress HEENT: Normocephalic, atraumatic. Extraocular movements intact. Moist mucosa. NECK: Supple. Jugular veins are at the level of the jaw. HEART: Normal S1, S2. Regular rate and rhythm. No murmurs appreciated. LUNGS: Good air movement bilaterally. Positive for expiratory wheezing. No rales or rhonchi appreciated. ABDOMEN: Abdomen is distended. Soft. Has mild diffuse tenderness to palpation. Bowel sounds are present. EXTREMITIES: No cyanosis or significant edema. Positive pedal pulses bilaterally. NEUROLOGIC: No new focal deficits. LABORATORY DATA: 03/14/16 06:31 Calcium Level 8.3 L, Aspartate Amino Transf (AST/SGOT) 20, Alanine Aminotransferase (ALT/SGPT) 32, Alkaline Phosphatase 53, Total Bilirubin 0.3, Total Protein 6.5, Albumin 2.6 L, Red Blood Count 3.13 L, Mean Corpuscular Volume 84.4, Mean Corpuscular Hemoglobin 27.8, Mean Corpuscular Hemoglobin Concent 32.9, Red Cell Distribution Width 15.6 H, Anion Gap 13, Glomerular Filtration Rate 13.4L, Magnesium Level 1.8 MICROBIOLOGY: Culture shows no growth thus far. GI panel is negative. IMAGING: Renal ultrasound done on 03/12 revealed chronic renal disease, no hydronephrosis. Abdominal x-ray done on 03/12 revealed gas and fluid dilated stomach. Abdominal/pelvis CT on 03/12 showed gastric as well as small bowel distention suggesting possible early partial small bowel obstruction, no free air. Moderate fecal stasis and constipation involving the rectosigmoid. Abdominal x-ray done 03/13 showed marked distention of the stomach, unchanged from previous. He is to have a repeat abdominal x-ray this morning. ASSESSMENT AND PLAN: Mr. Snyder is a 75 year old male with past medical history significant for chronic kidney disease stage III, diastolic heart failure, chronic lung disease from occupational exposure with 3 L home O2, hypertension, gout, coronary artery disease with history of [place], diabetes mellitus type 2, hyperlipidemia, BPH, history of GI bleed and gastritis and sleep apnea not on CPAP who presented due to hypoglycemia while experiencing vomiting and diarrhea , found to be in acute on chronic renal failure with possible small bowel obstruction. 1. Acute on chronic kidney disease stage III. Patient had history of vomiting and diarrhea however his creatinine did not significantly improve with hydration. He has small bowel obstruction which is complicating his renal function, and this is the primary issue that needs to be addressed. He has a baseline creatinine around 2.0. His creatinine has trended up a little bit from 4.32 to 4.55. There is no compelling evidence for acidosis and he does not appear to be significantly volume overloaded. He will be reinitiated on fluids, lactated ringer's at a rate of 50 mL/h given that he is nothing by mouth. Previous ultrasound confirmed chronic renal disease, nothing acute and urinalysis was not impressive for any intrinsic renal disease. At this point in time, we'll continue to monitor his renal function but his GI issues are the main concern. Continue to avoid nephrotoxic medications. 2. Hyponatremia, resolved. Likely secondary to the D5W he received when he was hypoglycemic. 3. Abdominal distention with small bowel obstruction. Patient is currently nothing by mouth and has an NG tube in place. It appears that his NG tube was further advanced as he did continue to have abdominal distention on x-ray yesterday. He is due for a repeat abdominal x-ray this morning. Surgery is currently following and we'll await further management. 4. Hypertension. Blood pressure is stable. Continue home medications which include clonidine, hydralazine, labetalol, Procardia, and terazosin. Hydrochlorothiazide, Lasix and losartan held on admission secondary to acute kidney injury. 5. Chronic diastolic heart failure. He has been started on lactated Ringer's at a rate of 50 mL/h and volume status will be monitored closely. He appears reasonably compensated at this time. 6. Anemia in chronic kidney disease. Hemoglobin is currently stable. GME ATTESTATION GME ATTESTATION My preceptor for this patient encounter was physically present in the building during the encounter and was fully available. As needed, all aspects of the patient interview, examination, medical decision making process, and medical care plan development were reviewed and approved by the preceptor. Preceptor is aware and concurs with the plan as stated in the body of this note and will attest to such by his/her cosignature. JAKOB ARRIAZA DO Mar 14, 2016 10:45
--- NOTE | 2016-03-14 13:32 | IPNPDOC ---
Assessment/Plan Date Seen The patient was seen on 03/14/16. Problems Problems: (1) Acute kidney injury superimposed on CKD Status: Acute Problem Text: Patient's serum creatinine elevated in the 4s today, baseline around 2 Initially thought to be secondary to prerenal azotemia as the patient did present with diarrhea, however his serum creatinine has gotten worse despite IV fluid hydration Possibly secondary to underlying abdominal distention from ileus vs ?Small bowel obstruction Ultrasound of the kidneys ordered-notable for medical renal disease Nephrotoxins held Nephrology on board (2) Constipation Status: Acute Problem Text: CT scan of the abdomen suggestive of possible early partial small bowel obstruction vs ileus-the patient does have risk for adhesions as he has had laparoscopic surgery in the past NG tube with 500 cc's drainage noted today. We will keep the patient nothing by mouth Surgery on board (3) Diastolic CHF Status: Chronic Response to Treatment: Stable Problem Text: Currently appears clinically compensated Hold nephrotoxins including Lasix at this time Chest x-ray with no notable pleural effusions. (4) Occupational lung disease Status: Chronic Problem Text: Continue on albuterol, Symbicort, tiotropium (5) Diabetes Status: Chronic Problem Text: Continue on insulin sliding scale (6) Chronic anemia Status: Chronic Problem Text: Hemoglobin noted we will continue to monitor (7) Obesity Status: Chronic (8) ANKITA (obstructive sleep apnea) Status: Chronic (9) Gait instability Status: Chronic Problem Text: Physical therapy ordered (10) CAD in [place] artery Status: Chronic Problem Text: Continue aspirin, nel, simvastatin (11) Hypertension Status: Chronic Response to Treatment: Stable Problem Text: Continue current anti-hypertensive regimen. Plan / VTE VTE Prophylaxis Ordered?: Yes Disposition I did have an extensive discussion with the patient and his daughter at the bedside today regarding the patient's guarded medical prognosis. At the current time, the patient's abdomen remains soft but distended, and he has not been able to pass much flatus despite bowel rest and NG tube placement. This is limited secondary to the patient's sedentary status. In addition, during this time the patient's renal function has also been further compromised on top of his pre-existing chronic kidney disease. Also of note, the patient does have underlying occupational lung disease which places the patient at higher risk for respiratory decompensation as the patient is susceptible to a possible aspiration event. The patient and the family understand the tenuous medical condition that Mr. Snyder is in and would like to continue with the current medical treatment as prescribed. Subjective Review of Systems CC/HPI The patient is a 75-year-old male admitted with a reason for visit of [place] ( Acute Kidney Injury). General: Denies: Chills, Night Sweats Constitutional: Denies: Chills, Fever ENT: Denies: Ear Pain, Head Aches Skin: Denies: Lesions, Rash Pulmonary: Reports: Dyspnea, Denies: Cough Cardiovascular: Denies: Chest Pain, Palpitations Gastrointestinal: Denies: Abdominal Pain, Diarrhea, Nausea, Vomiting Hematologic: Denies: Bleeding Excessively, Bruising Objective Physical Examination General Exam: Positive: Cooperative, No Acute Distress ENT Exam: Positive: Atraumatic, Mucous membr. moist/pink Chest Exam: Positive: Clear to auscultation, Diminished, Normal air movement, Negative: Rales Heart Exam: Positive: Normal S1, Normal S2, Rate Normal Abdomen Exam: Positive: BS Hypoactive, Other (distended), Soft, Negative: Hepatospenomegaly, Tenderness Extremity Exam: Negative: Tenderness Vital Signs/I&O Vital Signs Date Time Temp Pulse Resp B/P Pulse Ox O2 Delivery O2 Flow Rate FiO2 03/14/16 09:43 92 152/62 03/14/16 08:45 Nasal Cannula 3.0 03/14/16 06:00 97.2 22 93 I&O- Last 24 Hours up to 6 AM 03/14/16 06:00 Intake Total 0 ml Output Total 2050 ml Balance -2050 ml Laboratory Data Labs 24H Laboratory Tests 2 03/14/16 00:15: Bedside Glucose (Misc Panel) 81L 03/14/16 05:23: Bedside Glucose (Misc Panel) 88 03/14/16 06:31: Blood Urea Nitrogen 73H, Creatinine 4.55H, Sodium Level 136, Potassium Level 4.6 , Chloride Level 100, Carbon Dioxide Level 23, Calcium Level 8.3L, Aspartate Amino Transf (AST/SGOT) 20, Alanine Aminotransferase (ALT/SGPT) 32, Alkaline Phosphatase 53, Total Bilirubin 0.3, Total Protein 6.5, Albumin 2.6L, Albumin/ Globulin Ratio 0.67L, Anion Gap 13, Glomerular Filtration Rate 13.4L, Magnesium Level 1.8 03/14/16 11:39: Bedside Glucose (Misc Panel) 86 CBC/BMP Laboratory Tests 03/14/16 06:31 Calcium Level 8.3 L, Aspartate Amino Transf (AST/SGOT) 20, Alanine Aminotransferase (ALT/SGPT) 32, Alkaline Phosphatase 53, Total Bilirubin 0.3, Total Protein 6.5, Albumin 2.6 L, Red Blood Count 3.13 L, Mean Corpuscular Volume 84.4, Mean Corpuscular Hemoglobin 27.8, Mean Corpuscular Hemoglobin Concent 32.9, Red Cell Distribution Width 15.6 H FSBS Laboratory Tests Test 03/14/16 00:15 03/14/16 05:23 03/14/16 11:39 Range/Units Bedside Glucose (Misc Panel) 81 88 86 83-110 MG/DL Microbiology Microbiology 03/10/16 Blood Culture - Preliminary, Resulted No Growth after 72 hours. All specime... 03/12/16 Gastrointestinal Tract Panel (PCR) - Final, Complete 03/10/16 MRSA Screen - Final, Complete 03/12/16 Urine Culture, Received Pending MARY PEOPLES MD Mar 14, 2016 13:32
[2016-03-14 14:00] VITALS: BP 168/73
[2016-03-14] MEDS ORDERED: DEXTROSE 50% 50 ML SYRINGE IV STA (17:39)
[2016-03-14] MEDS: MIRALAX *UNIT DOSE* 17GM PACKET PO SCH (17:46)
[2016-03-14] MEDS: hydrOXYzine 50 MG TAB PO SCH (21:06)
[2016-03-14] MEDS: TERAZOSIN 5 MG CAP PO SCH (21:06)
[2016-03-14] MEDS: SIMVASTATIN 20 MG TAB PO SCH (21:07)
[2016-03-14 22:00] VITALS: BP 166/64
[2016-03-15] MEDS: ALBUTEROL SULFATE 2.5 MG/0.5 ML INH NEB SOLN NEB PRN ×2 (02:57→22:06)
[2016-03-15] MEDS: LR 1,000 ML IV SCH (05:06)
[2016-03-15 06:00] VITALS: BP 148/68
[2016-03-15] MEDS: HumaLOG INSULIN (NovoLOG) PER UNIT SC SCH ×4 (06:08→18:04)
[2016-03-15 06:25] LABS: MEAN CORPUSCULAR HEMOGLOBIN 27.6 pg (27.0-33.0); MEAN CORPUSCULAR HGB CONC 32.7 g/dl (32.0-36.5); MEAN CORPUSCULAR VOLUME 84.6 fl (80.0-96.0); RED CELL DISTRIBUTION WIDTH 15.7 % (11.5-14.5); WHITE BLOOD COUNT 12.8 K/mm3 (4.0-10.0)
[2016-03-15 06:39] LABS: ALBUMIN 2.5 GM/DL (3.2-5.2); ALBUMIN/GLOBULIN RATIO 0.58 (1.00-1.93); BILIRUBIN,TOTAL 0.4 MG/DL (0.2-1.0); CALCIUM LEVEL 8.6 MG/DL (8.8-10.2); CREATININE FOR GFR 4.33 MG/DL (0.70-1.30); GLOMERULAR FILTRATION RATE 14.2 (>42); MAGNESIUM LEVEL 1.9 MG/DL (1.8-2.4); POTASSIUM SERUM 4.5 MEQ/L (3.5-5.1); TOTAL PROTEIN 6.8 GM/DL (6.4-8.2)
[2016-03-15] MEDS: SYMBICORT 160/4.5MCG INHALER 6GM INH SCH ×2 (07:59→19:30)
[2016-03-15] MEDS: TIOTROPIUM INHALER/CAPSULE (SPIRIVA) INH SCH (07:59)
[2016-03-15] MEDS: ALBUTEROL SULFATE 2.5 MG/0.5 ML INH NEB SOLN INH SCH ×3 (07:59→20:00)
--- NOTE | 2016-03-15 09:25 | REP ---
KUB: Two views presented. History: Follow up abdominal distension. Comparison study is from the previous day. Findings: There is a moderately to markedly dilated loop of bowel in the central abdomen 11.8 cm in transverse dimension. This is more prominent than on the previous day's radiograph. There is nondilated colonic gas in the transverse colon. I am not certain whether the dilated loop is large or small bowel. There is another loop of what appears to be dilated small bowel in the left mid abdomen 6 cm in diameter. There are clips in the right upper quadrant, vascular calcification in the left upper quadrant, and an NG tube is noted terminating in the epigastric region in the midline at or possibly above the gastroesophageal junction. Impression: Progressive dilation of a central abdominal bowel loop. NG tube appears to be at or possibly above the GE junction. Signed by Naresh Madden MD 03/15/2016 01:41 P
[2016-03-15] MEDS: LABETALOL 200 MG TAB PO SCH ×2 (09:48→20:55)
[2016-03-15] MEDS: NIFEdipine 60 MG XL TAB PO SCH (09:48)
[2016-03-15] MEDS: VITAMIN D 1,000 INTERNATIONAL UNITS TABLET PO SCH (09:48)
[2016-03-15] MEDS: ASPIRIN 81 MG ENTERIC TAB PO SCH (09:49)
[2016-03-15] MEDS: MULTIVITAMINS/MINERALS THERAP 1 TAB PO SCH (09:49)
[2016-03-15] MEDS: FERROUS SULFATE 325MG TAB PO SCH ×2 (09:49→20:55)
[2016-03-15] MEDS: MIRALAX *UNIT DOSE* 17GM PACKET PO SCH (09:49)
[2016-03-15] MEDS: cloNIDine 0.1 MG TAB PO SCH ×2 (09:49→20:55)
[2016-03-15] MEDS: **hydrALAZINE HCL** 25 MG TAB PO SCH ×2 (09:49→20:55)
[2016-03-15] MEDS: OMEPRAZOLE 20 MG CAP PO SCH (09:49)
[2016-03-15] MEDS ORDERED: GASTROGRAFIN SOLUTION 30ML PO ONE (10:45)
[2016-03-15] MEDS ORDERED: GASTROGRAFIN SOLUTION 30ML (Q9963) PO ONE (11:15)
--- NOTE | 2016-03-15 13:44 | REP ---
Clinical: Evaluate small bowel obstruction. Comparison: 03/12/2016. Findings: Lung bases demonstrate moderate pleural effusions with bibasilar atelectasis and mild pulmonary vascular congestion. Visualized portions of the heart and pericardium are stable. A nasogastric tube is identified with its tip at the gastroesophageal junction and may warrant advancement. The bowel gas pattern appears improved and currently without evidence for small bowel obstruction. Oral contrast is identified within the stomach and small bowel extending into the cecum and transverse colon. There is no evidence for free air or free fluid. Liver, spleen, pancreas, bilateral adrenal glands and kidneys are relatively stable/normal for noncontrast evaluation. Hypodensity within the right lobe of liver is unchanged and may represent small area of cyst. 1 cm left adrenal myelolipoma is suggested and benign/unchanged. Kidneys demonstrate chronic perinephric stranding without hydronephrosis or nephrolithiasis. Pelvis demonstrates normal bladder and age appropriate prostate gland. No pelvic fluid. No adenopathy. Atherosclerotic changes of the aorta and branch vessels noted. Surrounding musculoskeletal structures demonstrate stable degenerative changes without focal osseous abnormalities. Impression: 1. Bowel gas pattern is improved without evidence for obstruction as detailed above. 2. The nasogastric tube extends to the gastroesophageal junction and may warrant advancement into the stomach. 3. Moderate bilateral pleural effusions with bibasilar atelectasis and pulmonary vascular congestion. 4. Chronic stable changes as described above. Signed by Johnny Berrios MD 03/15/2016 01:35 P
--- NOTE | 2016-03-15 13:53 | IPNPDOC ---
Date/Time Seen The patient was seen on 03/15/16 at 13:37. Progress Note DATE OF ENCOUNTER: 03/15/2016 SUBJECTIVE: Patient was seen this morning at bedside. His reports that his abdominal pain is improved. He continues to have an NG tube in place and abdominal distention is still present. He denies any nausea or vomiting. He has not had a bowel movement since his enema a few days ago. No fevers or chills. He reports that his breathing is about the same, no chest pain. OBJECTIVE: Vital Signs Date Time Temp Pulse Resp B/P Pulse Ox O2 Delivery O2 Flow Rate FiO2 03/15/16 09:49 Nasal Cannula 3.0 03/15/16 09:48 95 148/68 03/15/16 08:00 30 03/15/16 06:00 98.0 96 I&O- Last 24 Hours up to 6 AM 03/15/16 06:00 Intake Total 650 ml Output Total 1725 ml Balance -1075 ml GENERAL: Awake and alert, in no acute distress HEENT: Normocephalic, atraumatic. Extraocular movements intact. Moist mucosa. NECK: Supple. Jugular veins are not significantly elevated. HEART: Normal S1, S2. Regular rate and rhythm. No murmurs appreciated. LUNGS: Good air movement bilaterally. No rales or rhonchi appreciated. ABDOMEN: Abdomen is distended. Soft. Patient has diffuse tenderness to deep palpation. Bowel sounds are present. No rebound, guarding or rigidity. EXTREMITIES: No cyanosis or significant edema. Positive pedal pulses bilaterally. NEUROLOGIC: No new focal deficits. LABORATORY DATA: 03/15/16 06:11 Red Blood Count 3.23 L, Mean Corpuscular Volume 84.6, Mean Corpuscular Hemoglobin 27.6, Mean Corpuscular Hemoglobin Concent 32.7, Red Cell Distribution Width 15.7 H, Calcium Level 8.6L, Aspartate Amino Transf (AST/SGOT ) 21, Alanine Aminotransferase (ALT/SGPT) 30, Alkaline Phosphatase 59, Total Bilirubin 0.4, Total Protein 6.8, Albumin 2.5L, Albumin/Globulin Ratio 0.58L, Anion Gap 14, Glomerular Filtration Rate 14.2L, Magnesium Level 1.9 MICROBIOLOGY: Blood culture shows no growth thus far. Urine positive for Enterococcus faecalis. IMAGING: Renal ultrasound done on 03/12 revealed chronic renal disease, no hydronephrosis. Abdominal x-ray done on 03/12 revealed gas and fluid dilated stomach. Abdominal/pelvis CT on 03/12 showed gastric as well as small bowel distention suggesting possible early partial small bowel obstruction, no free air. Moderate fecal stasis and constipation involving the rectosigmoid. Abdominal x-ray done 03/13 showed marked distention of the stomach, unchanged from previous. Abdominal x-ray performed today shows progressive dilatation of central abdominal bowel loop. ASSESSMENT AND PLAN: Mr. 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 1. Acute on chronic kidney disease stage III. His small bowel obstruction has complicated his renal function. It appears that his creatinine is slowly starting to turn around. With further improvement in his GI issues, it is likely that his renal function will slowly improve. There is no compelling evidence for acidosis, he does not appear to be significantly volume overloaded , and his electrolytes are stable. He is currently on lactated ringer's at a rate of 50 mL/h given that he is nothing by mouth. We will continue to monitor his renal function over the next 24-48 hours, hopefully there is continued improvement. 2. Abdominal distention with small bowel obstruction. Patient is currently nothing by mouth and has an NG tube in place. It appears that his NG tube is still above the GE junction as there is progression of small bowel dilatation. Surgery is currently following and we'll await further management. 3. Hypertension. Blood pressure is reasonable. Continue home medications which include clonidine, hydralazine, labetalol, Procardia, and terazosin. Hydrochlorothiazide, Lasix and losartan held on admission secondary to acute kidney injury. 4. Chronic diastolic heart failure. He appears reasonably compensated at this time. Volume status will continue to be monitored given that he is on fluids. 5. Anemia in chronic kidney disease. Hemoglobin is currently stable. GME ATTESTATION GME ATTESTATION My preceptor for this patient encounter was physically present in the building during the encounter and was fully available. As needed, all aspects of the patient interview, examination, medical decision making process, and medical care plan development were reviewed and approved by the preceptor. Preceptor is aware and concurs with the plan as stated in the body of this note and will attest to such by his/her cosignature. JAKOB ARRIAZA DO Mar 15, 2016 13:53
[2016-03-15 14:00] VITALS: BP 161/74
--- NOTE | 2016-03-15 14:35 | IPNPDOC ---
Assessment/Plan Date Seen The patient was seen on 03/15/16. Problems Problems: (1) Ileus Status: Resolved Response to Treatment: Stable Problem Text: CT scan of the abdomen on 03/12 suggestive of possible early partial small bowel obstruction vs ileus-the patient does have risk for adhesions as he has had laparoscopic surgery in the past Repeat CAT scan of the abdomen today reveals decreased gastric distention and no obstruction noted Patient's abdomen does appear to be more soft and lasted distended today Surgery on board (2) Acute kidney injury superimposed on CKD Status: Acute Problem Text: Patient's serum creatinine elevated in the 4s, baseline around 2 Initially thought to be secondary to prerenal azotemia as the patient did present with diarrhea Possibly secondary to underlying abdominal distention from ileus vs ?Small bowel obstruction Ultrasound of the kidneys ordered-notable for medical renal disease Nephrotoxins held We will continue lactated Ringer's at 50 mL an hour Electrolytes stable Nephrology on board (3) Diastolic CHF Status: Chronic Response to Treatment: Stable Problem Text: Currently appears clinically compensated Hold nephrotoxins including Lasix at this time Chest x-ray with no notable pleural effusions. (4) Occupational lung disease Status: Chronic Problem Text: Continue on albuterol, Symbicort, tiotropium (5) Diabetes Status: Chronic Problem Text: Continue on insulin sliding scale (6) Chronic anemia Status: Chronic Problem Text: Hemoglobin noted we will continue to monitor (7) Obesity Status: Chronic (8) ANKITA (obstructive sleep apnea) Status: Chronic (9) Gait instability Status: Chronic Problem Text: Physical therapy ordered (10) CAD in [place] artery Status: Chronic Problem Text: Continue aspirin, nel, simvastatin (11) Hypertension Status: Chronic Response to Treatment: Stable Problem Text: Continue current anti-hypertensive regimen. Plan / VTE VTE Prophylaxis Ordered?: Yes Subjective Review of Systems CC/HPI The patient is a 75-year-old male admitted with a reason for visit of Liban ( Acute Kidney Injury). General: Denies: Chills, Night Sweats Constitutional: Denies: Chills, Fever Eyes: Denies: Pain, Vision change ENT: Denies: Ear Pain, Head Aches Skin: Denies: Lesions, Rash Pulmonary: Reports: Cough, Dyspnea Cardiovascular: Denies: Chest Pain, Palpitations Gastrointestinal: Denies: Abdominal Pain, Diarrhea, Nausea, Vomiting Hematologic: Denies: Bleeding Excessively, Bruising Objective Physical Examination General Exam: Positive: Cooperative, No Acute Distress ENT Exam: Positive: Atraumatic, Mucous membr. moist/pink Chest Exam: Positive: Clear to auscultation, Diminished, Normal air movement, Negative: Rales Heart Exam: Positive: Normal S1, Normal S2, Rate Normal Abdomen Exam: Positive: BS Hypoactive, Other (distended), Soft, Negative: Hepatospenomegaly, Tenderness Extremity Exam: Negative: Tenderness Vital Signs/I&O Vital Signs Date Time Temp Pulse Resp B/P Pulse Ox O2 Delivery O2 Flow Rate FiO2 03/15/16 14:18 30 03/15/16 09:49 Nasal Cannula 3.0 03/15/16 09:48 95 148/68 03/15/16 06:00 98.0 96 I&O- Last 24 Hours up to 6 AM 03/15/16 06:00 Intake Total 650 ml Output Total 1725 ml Balance -1075 ml Laboratory Data Labs 24H Laboratory Tests 2 03/14/16 16:50: Bedside Glucose (Misc Panel) 82L 03/15/16 00:13: Bedside Glucose (Misc Panel) 102 03/15/16 06:06: Bedside Glucose (Misc Panel) 98 03/15/16 06:11: Blood Urea Nitrogen 71H, Creatinine 4.33H, Sodium Level 138, Potassium Level 4.5 , Chloride Level 101, Carbon Dioxide Level 23, Calcium Level 8.6L, Aspartate Amino Transf (AST/SGOT) 21, Alanine Aminotransferase (ALT/SGPT) 30, Alkaline Phosphatase 59, Total Bilirubin 0.4, Total Protein 6.8, Albumin 2.5L, Albumin/ Globulin Ratio 0.58L, Anion Gap 14, Glomerular Filtration Rate 14.2L, Magnesium Level 1.9 03/15/16 11:23: Bedside Glucose (Misc Panel) 111H CBC/BMP Laboratory Tests 03/15/16 06:11 Calcium Level 8.6 L, Aspartate Amino Transf (AST/SGOT) 21, Alanine Aminotransferase (ALT/SGPT) 30, Alkaline Phosphatase 59, Total Bilirubin 0.4, Total Protein 6.8, Albumin 2.5 L, Red Blood Count 3.23 L, Mean Corpuscular Volume 84.6, Mean Corpuscular Hemoglobin 27.6, Mean Corpuscular Hemoglobin Concent 32.7, Red Cell Distribution Width 15.7 H FSBS Laboratory Tests Test 03/14/16 16:50 03/15/16 00:13 03/15/16 06:06 03/15/16 11:23 Range/Units Bedside Glucose (Misc Panel) 82 102 98 111 83-110 MG/DL Microbiology Microbiology 03/10/16 Blood Culture - Preliminary, Resulted No Growth after 72 hours. All specime... 03/12/16 Gastrointestinal Tract Panel (PCR) - Final, Complete 03/10/16 MRSA Screen - Final, Complete 03/12/16 Urine Culture - Final, Complete Enterococcus Faecalis MARY PEOPLES MD Mar 15, 2016 14:35
[2016-03-15] MEDS ORDERED: SODIUM CHLORIDE 0.9% INJ 10 ML SYR IV PRN (16:30)
--- NOTE | 2016-03-15 16:53 | REP ---
Procedure: PICC line insertion with Ashtyn-Gabriel The procedure was performed under the direct supervision of Dr. Madden. The risks and benefits of the procedure were explained to the patient and informed consent was obtained. The right basilic vein was localized using ultrasound guidance. The skin was prepped and draped in a sterile fashion. 2% lidocaine was used as a local anesthetic. Using ultrasound guidance the basilic vein was cannulated and a 0.018 guidewire was inserted and advanced to the SVC using fluoroscopic guidance. The needle was removed and a 5.5 [place] dilator and peel-away sheath was inserted over the guide wire. A 5.5 [place] dual lumen catheter was cut to length of 50 cm. The dilator was removed and the catheter was inserted over the guide wire with the tip ending in the SVC. The peel-away sheath was removed and the catheter was flushed with heparinized saline as per Hospital protocol. The catheter was affixed to the skin and a sterile dressing was applied. The the patient tolerated the procedure well and there were no immediate complications. 0.2 minutes of fluoro time was utilized for this procedure. Reviewed by JUAN ALBERTO Kemp 03/15/2016 04:19 PSigned by Naresh Madden MD 03/15/2016 04:45 P
[2016-03-15] MEDS: SODIUM CHLORIDE 0.9% INJ 10 ML SYR IV SCH (18:05)
[2016-03-15] MEDS: TERAZOSIN 5 MG CAP PO SCH (20:55)
[2016-03-15] MEDS: SIMVASTATIN 20 MG TAB PO SCH (20:55)
[2016-03-15] MEDS: hydrOXYzine 50 MG TAB PO SCH (20:55)
[2016-03-15 22:00] VITALS: BP 180/78
[2016-03-15 23:26] LABS: CALCIUM LEVEL 8.2 MG/DL (8.8-10.2); CREATININE FOR GFR 4.17 MG/DL (0.70-1.30); GLOMERULAR FILTRATION RATE 14.8 (>42); POTASSIUM SERUM 4.4 MEQ/L (3.5-5.1)
[2016-03-16] VITALS: BP 146/68
[2016-03-16 05:28] LABS: MEAN CORPUSCULAR HEMOGLOBIN 27.4 pg (27.0-33.0); MEAN CORPUSCULAR HGB CONC 32.7 g/dl (32.0-36.5); MEAN CORPUSCULAR VOLUME 83.9 fl (80.0-96.0); RED CELL DISTRIBUTION WIDTH 15.4 % (11.5-14.5)
[2016-03-16 05:32] LABS: ALBUMIN 2.4 GM/DL (3.2-5.2); ALBUMIN/GLOBULIN RATIO 0.57 (1.00-1.93); BILIRUBIN,TOTAL 0.4 MG/DL (0.2-1.0); CALCIUM LEVEL 8.3 MG/DL (8.8-10.2); CREATININE FOR GFR 4.23 MG/DL (0.70-1.30); GLOMERULAR FILTRATION RATE 14.6 (>42); MAGNESIUM LEVEL 1.9 MG/DL (1.8-2.4); POTASSIUM SERUM 4.4 MEQ/L (3.5-5.1); TOTAL PROTEIN 6.6 GM/DL (6.4-8.2)
[2016-03-16 06:00] VITALS: BP 150/68
[2016-03-16] MEDS: SODIUM CHLORIDE 0.9% INJ 10 ML SYR IV SCH ×2 (06:00→17:53)
[2016-03-16] MEDS: HumaLOG INSULIN (NovoLOG) PER UNIT SC SCH ×4 (06:00→17:53)
[2016-03-16] MEDS: ALBUTEROL SULFATE 2.5 MG/0.5 ML INH NEB SOLN INH SCH ×3 (07:26→20:00)
[2016-03-16] MEDS: TIOTROPIUM INHALER/CAPSULE (SPIRIVA) INH SCH (07:26)
[2016-03-16] MEDS: SYMBICORT 160/4.5MCG INHALER 6GM INH SCH ×2 (07:26→19:41)
--- NOTE | 2016-03-16 08:11 | REP ---
Clinical: Increasing shortness of breath. Comparison: 03/14/2016. Findings: Right PICC line with tip in the SVC. Findings to suggest endotracheal tube which is approximately 2.8 cm from braxton. Cardiomegaly cannot be excluded. Lung ramirez demonstrate increased interstitial markings and elements of pulmonary vascular congestion as well as layering left effusion cannot be excluded. No pneumothorax. Skeletal structures intact. Impression: Findings to suggest interstitial edema with possible layering left effusion. Signed by Johnny Berrios MD 03/16/2016 08:02 A
[2016-03-16 08:55] VITALS: BP 161/72
--- NOTE | 2016-03-16 09:23 | REP ---
Clinical: Pain and swelling. Technique: Real time nolan scale and color Doppler evaluation using linear high frequency transducer. Findings: Ultrasound examination of the left upper extremity deep venous structures including jugular vein, subclavian, axillary, brachial, basilic, and cephalic veins demonstrate normal color flow and Doppler wave patterns along with compression and various levels. There is no evidence for deep venous thrombosis. Impression: Negative examination. No evidence for DVT Signed by Johnny Berrios MD 03/16/2016 09:15 A
[2016-03-16] MEDS: MIRALAX *UNIT DOSE* 17GM PACKET PO SCH (09:57)
[2016-03-16] MEDS: NIFEdipine 60 MG XL TAB PO SCH (09:58)
[2016-03-16] MEDS: VITAMIN D 1,000 INTERNATIONAL UNITS TABLET PO SCH (09:58)
[2016-03-16] MEDS: ASPIRIN 81 MG ENTERIC TAB PO SCH (09:58)
[2016-03-16] MEDS: **hydrALAZINE HCL** 25 MG TAB PO SCH ×2 (09:59→21:46)
[2016-03-16] MEDS: LABETALOL 200 MG TAB PO SCH ×2 (09:59→21:47)
[2016-03-16] MEDS: FERROUS SULFATE 325MG TAB PO SCH ×2 (09:59→21:46)
[2016-03-16] MEDS: cloNIDine 0.1 MG TAB PO SCH ×2 (10:00→21:47)
[2016-03-16] MEDS: MULTIVITAMINS/MINERALS THERAP 1 TAB PO SCH (10:00)
[2016-03-16] MEDS: OMEPRAZOLE 20 MG CAP PO SCH (10:00)
--- NOTE | 2016-03-16 11:20 | IPNPDOC ---
Assessment/Plan Date Seen The patient was seen on 03/16/16. Problems Problems: (1) Ileus Status: Resolved Response to Treatment: Stable Problem Text: CT scan of the abdomen on 03/12 suggestive of possible early partial small bowel obstruction vs ileus-the patient does have risk for adhesions as he has had laparoscopic surgery in the past Repeat CAT scan of the abdomen on 03/15 reveals decreased gastric distention and no obstruction noted Patient's abdomen does appear to be more soft and less distended today Patient did pull out his NG tube yesterday--OK to leave out as per Surgery s/p PICC Line Insertion yesterday as the patient may need TPN Surgery on board (2) Acute kidney injury superimposed on CKD Status: Acute Problem Text: Patient's serum creatinine elevated in the 4s, baseline around 2 Initially thought to be secondary to prerenal azotemia as the patient did present with diarrhea Possibly secondary to underlying abdominal distention from ileus vs ?Small bowel obstruction Ultrasound of the kidneys ordered-notable for medical renal disease Nephrotoxins held Fluids held last night as the patient was getting some SOB--CXR noted from this AM Electrolytes stable Nephrology on board (3) Diastolic CHF Status: Chronic Response to Treatment: Stable Problem Text: Currently appears clinically compensated Hold nephrotoxins including Lasix at this time Chest x-ray with no notable pleural effusions. (4) Occupational lung disease Status: Chronic Problem Text: Continue on albuterol, Symbicort, tiotropium (5) Diabetes Status: Chronic Problem Text: Continue on insulin sliding scale (6) Chronic anemia Status: Chronic Problem Text: Hemoglobin noted we will continue to monitor (7) Obesity Status: Chronic (8) ANKITA (obstructive sleep apnea) Status: Chronic (9) Gait instability Status: Chronic Problem Text: Physical therapy ordered (10) CAD in [place] artery Status: Chronic Problem Text: Continue aspirin, nel, simvastatin (11) Hypertension Status: Chronic Response to Treatment: Stable Problem Text: Continue current anti-hypertensive regimen. Plan / VTE VTE Prophylaxis Ordered?: Yes Subjective Review of Systems CC/HPI The patient is a 75-year-old male admitted with a reason for visit of Liban ( Acute Kidney Injury). General: Denies: Chills, Night Sweats Constitutional: Denies: Chills, Fever Eyes: Denies: Pain, Vision change ENT: Denies: Ear Pain, Head Aches Skin: Denies: Lesions, Rash Pulmonary: Denies: Cough, Dyspnea Cardiovascular: Denies: Chest Pain, Palpitations Gastrointestinal: Denies: Nausea, Vomiting Hematologic: Denies: Bleeding Excessively, Bruising Objective Physical Examination General Exam: Positive: Cooperative, No Acute Distress ENT Exam: Positive: Atraumatic, Mucous membr. moist/pink Chest Exam: Positive: Clear to auscultation, Diminished, Normal air movement, Negative: Rales Heart Exam: Positive: Normal S1, Normal S2, Rate Normal Abdomen Exam: Positive: BS Hypoactive, Other (distended), Soft, Negative: Hepatospenomegaly, Tenderness Extremity Exam: Negative: Tenderness Vital Signs/I&O Vital Signs Date Time Temp Pulse Resp B/P Pulse Ox O2 Delivery O2 Flow Rate FiO2 03/16/16 09:59 98 161/72 03/16/16 07:30 Nasal Cannula 3.0 03/16/16 06:00 96.5 22 96 I&O- Last 24 Hours up to 6 AM 03/16/16 06:00 Intake Total 850 ml Output Total 750 ml Balance 100 ml Laboratory Data Labs 24H Laboratory Tests 2 03/15/16 11:23: Bedside Glucose (Misc Panel) 111H 03/15/16 16:46: Bedside Glucose (Misc Panel) 105 03/15/16 22:56: Anion Gap 15, B-Type Natriuretic Peptide 644H, Blood Urea Nitrogen 74H, Creatinine 4.17H, Sodium Level 136, Potassium Level 4.4, Chloride Level 99, Carbon Dioxide Level 22, Calcium Level 8.2L, Glomerular Filtration Rate 14.8L 03/16/16 00:36: Bedside Glucose (Misc Panel) 113H 03/16/16 04:59: Blood Urea Nitrogen 80H, Creatinine 4.23H, Sodium Level 140, Potassium Level 4.4 , Chloride Level 102, Carbon Dioxide Level 23, Calcium Level 8.3L, Aspartate Amino Transf (AST/SGOT) 18, Alanine Aminotransferase (ALT/SGPT) 31, Alkaline Phosphatase 60, Total Bilirubin 0.4, Total Protein 6.6, Albumin 2.4L, Albumin/ Globulin Ratio 0.57L, Anion Gap 15, Glomerular Filtration Rate 14.6L, Magnesium Level 1.9 CBC/BMP Laboratory Tests 03/15/16 22:56 Calcium Level 8.2 L 03/16/16 04:59 Calcium Level 8.3 L, Aspartate Amino Transf (AST/SGOT) 18, Alanine Aminotransferase (ALT/SGPT) 31, Alkaline Phosphatase 60, Total Bilirubin 0.4, Total Protein 6.6, Albumin 2.4 L, Red Blood Count 3.11 L, Mean Corpuscular Volume 83.9, Mean Corpuscular Hemoglobin 27.4, Mean Corpuscular Hemoglobin Concent 32.7, Red Cell Distribution Width 15.4 H FSBS Laboratory Tests Test 03/15/16 11:23 03/15/16 16:46 03/16/16 00:36 Range/Units Bedside Glucose (Misc Panel) 111 105 113 83-110 MG/DL Microbiology Microbiology 03/10/16 Blood Culture - Final, Complete NO GROWTH AFTER 5 DAYS 03/12/16 Gastrointestinal Tract Panel (PCR) - Final, Complete 03/10/16 MRSA Screen - Final, Complete 03/12/16 Urine Culture - Final, Complete Enterococcus Faecalis MARY PEOPLES MD Mar 16, 2016 11:20
[2016-03-16 13:54] VITALS: BP 169/77
[2016-03-16 14:07] VITALS: BP 162/70
--- NOTE | 2016-03-16 14:18 | IPNPDOC ---
Date/Time Seen The patient was seen on 03/16/16 at 13:45. Progress Note DATE OF ENCOUNTER: 03/16/2016 SUBJECTIVE: : Patient was seen this morning at bedside. His reports that his abdominal pain is improved. It so happens that his NG tube fell out. Abdomen does feel soft with some improvement in distention. He denies any nausea or vomiting. He has not had a bowel movement since his enema a few days ago. No fevers or chills. He denies any increased shortness of breath this morning, however overnight fluids were stopped due to shortness of breath. He denies any chest pain or pressure. OBJECTIVE: Vital Signs Date Time Temp Pulse Resp B/P Pulse Ox O2 Delivery O2 Flow Rate FiO2 03/16/16 10:30 Nasal Cannula 3.0 03/16/16 09:59 98 161/72 03/16/16 08:55 96.4 22 97 I&O- Last 24 Hours up to 6 AM 03/16/16 06:00 Intake Total 850 ml Output Total 750 ml Balance 100 ml GENERAL: Awake and alert, in no acute distress HEENT: Normocephalic, atraumatic. Extraocular movements intact. Moist mucosa. NECK: Supple. Jugular veins are mildly elevated. HEART: Normal S1, S2. Regular rate and rhythm. No murmurs appreciated. LUNGS: Diminished breath sounds. No distinct rales or rhonchi could be appreciated. ABDOMEN: Soft. Abdomen is distended, but improved. Tenderness to deep palpation a little improved. Bowel sounds appear hypoactive this morning. No rebound, guarding or rigidity. EXTREMITIES: No cyanosis or significant edema. Positive pedal pulses bilaterally. NEUROLOGIC: No new focal deficits. LABORATORY DATA: 03/16/16 04:59 Red Blood Count 3.11 L, Mean Corpuscular Volume 83.9, Mean Corpuscular Hemoglobin 27.4, Mean Corpuscular Hemoglobin Concent 32.7, Red Cell Distribution Width 15.4 H, Anion Gap 15, Calcium Level 8.3L, Glomerular Filtration Rate 14.6L, Aspartate Amino Transf (AST/SGOT) 18, Alanine Aminotransferase (ALT/SGPT) 31, Alkaline Phosphatase 60, Total Bilirubin 0.4, Total Protein 6.6, Albumin 2.4L, Albumin/Globulin Ratio 0.57L, Magnesium Level 1.9 MICROBIOLOGY: Blood culture shows no growth thus far. Urine positive for Enterococcus faecalis. IMAGING: Renal ultrasound done on 03/12 revealed chronic renal disease, no hydronephrosis. Abdominal x-ray done on 03/12 revealed gas and fluid dilated stomach. Abdominal/pelvis CT on 03/12 showed gastric as well as small bowel distention suggesting possible early partial small bowel obstruction, no free air. Moderate fecal stasis and constipation involving the rectosigmoid. Abdominal x-ray done 03/13 showed marked distention of the stomach, unchanged from previous. Abdominal x-ray performed 03/15 showed progressive dilatation of central abdominal bowel loop. Abdominal CT on 03/15 does not show obstruction. ASSESSMENT AND PLAN: Mr. 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 1. Acute on chronic kidney disease stage III. His small bowel obstruction has complicated his renal function. Creatinine is not significantly changed. Repeat abdominal CT does not show obstruction so hopefully his renal function can start to turn around. No compelling evidence for acidosis and electrolytes are stable. Given patient's interstitial edema on chest x-ray and CT showing bilateral effusions, intravenous fluids are being discontinued. Hopefully something can be done about nutrition until his bowels start working. We will continue to monitor his renal function over the next few days, hopefully there is a more significant improvement. 2. Small bowel obstruction. CT performed yesterday does not show any obstruction. He no longer has an NG tube in place as it fell out. Surgery is currently following and will defer management. 3. Urinary tract infection with culture positive for Enterococcus faecalis. Patient has been initiated on ciprofloxacin. 4. Hypertension. Continue home medications which include clonidine, hydralazine , labetalol, Procardia, and terazosin. Hydrochlorothiazide, Lasix and losartan held on admission secondary to acute kidney injury. 5. Chronic diastolic heart failure. Volume status will need to be monitored closely. IV fluids have been discontinued. 6. Anemia in chronic kidney disease. Hemoglobin is currently stable. GME ATTESTATION GME ATTESTATION My preceptor for this patient encounter was physically present in the building during the encounter and was fully available. As needed, all aspects of the patient interview, examination, medical decision making process, and medical care plan development were reviewed and approved by the preceptor. Preceptor is aware and concurs with the plan as stated in the body of this note and will attest to such by his/her cosignature. JAKOB ARRIAZA DO Mar 16, 2016 14:18
[2016-03-16] MEDS: ALBUTEROL SULFATE 2.5 MG/0.5 ML INH NEB SOLN NEB PRN ×2 (16:27→23:04)
[2016-03-16] MEDS: CIPROFLOXACIN 200 MG in APPROPRIATE DILUENT 1 EA IV SCH (17:53)
[2016-03-16] MEDS: SIMVASTATIN 20 MG TAB PO SCH (21:46)
[2016-03-16] MEDS: TERAZOSIN 5 MG CAP PO SCH (21:46)
[2016-03-16] MEDS: hydrOXYzine 50 MG TAB PO SCH (21:47)
[2016-03-16 22:00] VITALS: BP 166/73
[2016-03-17] MEDS: HumaLOG INSULIN (NovoLOG) PER UNIT SC SCH ×5 (00:48→20:48)
[2016-03-17] MEDS: SODIUM CHLORIDE 0.9% INJ 10 ML SYR IV SCH ×2 (05:11→17:27)
[2016-03-17] MEDS: CIPROFLOXACIN 200 MG in APPROPRIATE DILUENT 1 EA IV SCH ×2 (05:12→17:27)
[2016-03-17 05:29] LABS: MEAN CORPUSCULAR HEMOGLOBIN 26.8 pg (27.0-33.0); MEAN CORPUSCULAR HGB CONC 31.8 g/dl (32.0-36.5); MEAN CORPUSCULAR VOLUME 84.2 fl (80.0-96.0); RED CELL DISTRIBUTION WIDTH 15.3 % (11.5-14.5); WHITE BLOOD COUNT 11.2 K/mm3 (4.0-10.0)
[2016-03-17 05:47] LABS: ALBUMIN 2.5 GM/DL (3.2-5.2); ALBUMIN/GLOBULIN RATIO 0.57 (1.00-1.93); BILIRUBIN,TOTAL 0.4 MG/DL (0.2-1.0); CALCIUM LEVEL 8.6 MG/DL (8.8-10.2); CREATININE FOR GFR 4.29 MG/DL (0.70-1.30); GLOMERULAR FILTRATION RATE 14.4 (>42); POTASSIUM SERUM 4.3 MEQ/L (3.5-5.1); TOTAL PROTEIN 6.9 GM/DL (6.4-8.2)
[2016-03-17 06:00] VITALS: BP 168/76
[2016-03-17] MEDS: TIOTROPIUM INHALER/CAPSULE (SPIRIVA) INH SCH (07:14)
[2016-03-17] MEDS: SYMBICORT 160/4.5MCG INHALER 6GM INH SCH (07:14)
[2016-03-17] MEDS: ALBUTEROL SULFATE 2.5 MG/0.5 ML INH NEB SOLN INH SCH ×2 (07:15→13:21)
[2016-03-17] MEDS: VITAMIN D 1,000 INTERNATIONAL UNITS TABLET PO SCH (09:08)
[2016-03-17] MEDS: MIRALAX *UNIT DOSE* 17GM PACKET PO SCH (09:08)
[2016-03-17] MEDS: cloNIDine 0.1 MG TAB PO SCH ×2 (09:08→20:48)
[2016-03-17] MEDS: MULTIVITAMINS/MINERALS THERAP 1 TAB PO SCH (09:08)
[2016-03-17] MEDS: **hydrALAZINE HCL** 25 MG TAB PO SCH ×2 (09:08→20:47)
[2016-03-17] MEDS: ASPIRIN 81 MG ENTERIC TAB PO SCH (09:08)
[2016-03-17] MEDS: OMEPRAZOLE 20 MG CAP PO SCH (09:08)
[2016-03-17] MEDS: LABETALOL 200 MG TAB PO SCH ×2 (09:08→20:48)
[2016-03-17] MEDS: NIFEdipine 60 MG XL TAB PO SCH (09:08)
[2016-03-17] MEDS: FERROUS SULFATE 325MG TAB PO SCH ×2 (09:08→20:46)
--- NOTE | 2016-03-17 11:13 | IPNPDOC ---
Assessment/Plan Date Seen The patient was seen on 03/17/16. Problems Problems: (1) Ileus Status: Resolved Response to Treatment: Stable Problem Text: The patient was able to tolerate clear diet history In addition, and more importantly the patient did pass a large bowel movement this morning. The patient's abdomen appears much less distended today. He has been advanced to a regular diet by surgery. We will continue to monitor his progress (2) Acute kidney injury superimposed on CKD Status: Acute Response to Treatment: Improving Problem Text: Patient's serum creatinine elevated in the 4s, baseline around 2 Initially thought to be secondary to prerenal azotemia as the patient did present with diarrhea Possibly secondary to underlying abdominal distention from ileus vs ?Small bowel obstruction Ultrasound of the kidneys ordered-notable for medical renal disease Nephrotoxins held Electrolytes stable Nephrology on board (3) Diastolic CHF Status: Chronic Response to Treatment: Stable Problem Text: Currently appears clinically compensated Hold nephrotoxins including Lasix at this time (4) Occupational lung disease Status: Chronic Problem Text: Continue on albuterol, Symbicort, tiotropium (5) Diabetes Status: Chronic Problem Text: Continue on insulin sliding scale (6) Chronic anemia Status: Chronic Problem Text: Hemoglobin noted we will continue to monitor (7) Obesity Status: Chronic (8) ANKITA (obstructive sleep apnea) Status: Chronic (9) Gait instability Status: Chronic Problem Text: Physical therapy ordered (10) CAD in [place] artery Status: Chronic Problem Text: Continue aspirin, nel, simvastatin (11) Hypertension Status: Chronic Response to Treatment: Stable Problem Text: Continue current anti-hypertensive regimen. Plan / VTE VTE Prophylaxis Ordered?: Yes Subjective Review of Systems CC/HPI The patient is a 75-year-old male admitted with a reason for visit of [place] ( Acute Kidney Injury). General: Denies: Chills, Night Sweats Constitutional: Denies: Chills, Fever Eyes: Denies: Pain, Vision change ENT: Denies: Ear Pain, Head Aches Skin: Denies: Lesions, Rash Pulmonary: Denies: Cough, Dyspnea Cardiovascular: Denies: Chest Pain, Palpitations Gastrointestinal: Denies: Nausea, Vomiting Hematologic: Denies: Bleeding Excessively, Bruising Objective Physical Examination General Exam: Positive: Alert, Cooperative, No Acute Distress ENT Exam: Positive: Atraumatic, Mucous membr. moist/pink Chest Exam: Positive: Clear to auscultation, Diminished, Normal air movement, Negative: Rales Heart Exam: Positive: Normal S1, Normal S2, Rate Normal Abdomen Exam: Positive: Other (less distended today), Soft, Negative: Hepatospenomegaly, Tenderness Extremity Exam: Negative: Tenderness Vital Signs/I&O Vital Signs Date Time Temp Pulse Resp B/P Pulse Ox O2 Delivery O2 Flow Rate FiO2 03/17/16 09:08 168/76 03/17/16 06:00 97.5 86 20 95 03/17/16 00:33 Nasal Cannula 3.0 I&O- Last 24 Hours up to 6 AM 03/17/16 06:00 Intake Total 1450 ml Output Total 975 ml Balance 475 ml Laboratory Data Labs 24H Laboratory Tests 2 03/16/16 11:44: Bedside Glucose (Misc Panel) 122H 03/16/16 16:50: Bedside Glucose (Misc Panel) 111H 03/17/16 00:06: Bedside Glucose (Misc Panel) 125H 03/17/16 05:20: Blood Urea Nitrogen 86H, Creatinine 4.29H, Sodium Level 140, Potassium Level 4.3 , Chloride Level 102, Carbon Dioxide Level 25, Calcium Level 8.6L, Aspartate Amino Transf (AST/SGOT) 14L, Alanine Aminotransferase (ALT/SGPT) 30, Alkaline Phosphatase 65, Total Bilirubin 0.4, Total Protein 6.9, Albumin 2.5L, Albumin/ Globulin Ratio 0.57L, Anion Gap 13, Glomerular Filtration Rate 14.4L, Magnesium Level 2.0 CBC/BMP Laboratory Tests 03/17/16 05:20 Calcium Level 8.6 L, Aspartate Amino Transf (AST/SGOT) 14 L, Alanine Aminotransferase (ALT/SGPT) 30, Alkaline Phosphatase 65, Total Bilirubin 0.4, Total Protein 6.9, Albumin 2.5 L, Red Blood Count 3.17 L, Mean Corpuscular Volume 84.2, Mean Corpuscular Hemoglobin 26.8 L, Mean Corpuscular Hemoglobin Concent 31.8 L, Red Cell Distribution Width 15.3 H FSBS Laboratory Tests Test 03/16/16 11:44 03/16/16 16:50 03/17/16 00:06 Range/Units Bedside Glucose (Misc Panel) 122 111 125 83-110 MG/DL Microbiology Microbiology 03/10/16 Blood Culture - Final, Complete NO GROWTH AFTER 5 DAYS 03/12/16 Gastrointestinal Tract Panel (PCR) - Final, Complete 03/10/16 MRSA Screen - Final, Complete 03/12/16 Urine Culture - Final, Complete Enterococcus Faecalis MARY PEOPLES MD Mar 17, 2016 11:13
[2016-03-17] MEDS ORDERED: DEXTROSE 50% 50 ML SYRINGE IV PRN (11:15)
[2016-03-17] MEDS ORDERED: GLUCOSE 4 GM CHEW TABLET PO PRN (11:15)
[2016-03-17] MEDS ORDERED: GLUCAGON FOR INJ 1 MG VIAL (J1610) SC PRN (11:15)
[2016-03-17] MEDS ORDERED: FUROSEMIDE 100 MG/10 ML VIAL (J1940) IV ONE (13:00)
--- NOTE | 2016-03-17 13:08 | IPN ---
DATE: 03/17/2016 Mr. Snyder is seen this morning on his bedside. He is laying in the bed as usual and reports feeling better. He reports a large sized bowel movement today and denies any nausea or vomiting. His chronic dyspnea is unchanged. He has no fever or chills. His nasogastric tube has been removed and he is getting clear liquids orally. PHYSICAL EXAMINATION: On physical examination, temperature 97.5 degrees Fahrenheit, heart rate 86 per minute and respiratory rate 20 per minute. Blood pressure 168/76 mmHg and oxygen saturation 95% on three liters oxygen. Head is atraumatic. Ears, nose and throat are unremarkable. He is using oxygen via nasal cannula. Neck veins are moderately distended. Pupils are equal and reactive to light and sclera is anicteric. Heart sounds are distant and irregular in rhythm. Lungs with diminished breath sounds bilaterally. Abdomen is soft, minimally tender and without palpable organomegaly. Bowel sounds are normal. Extremities have no cyanosis or clubbing. Skin has no rash or ulcers. Neurologically, he is awake, alert and oriented times three. LABORATORY DATA: Today's laboratories show WBC count 11.2, hemoglobin 8.5 and hematocrit 26.7. Platelets 305. Sodium 140 and potassium 4.3. BUN 86 and creatinine 4.29. Glucose 105 and calcium 8.6. CO2 is 25 and albumin 2.5. PROBLEMS: 1. Acute renal failure, superimposed on chronic kidney disease. The patient has significant underlying chronic kidney disease. His acute renal failure is most likely related to ongoing gastrointestinal (GI) problems. At present, his kidney function has leveled off. He did not have hydronephrosis on recent abdominal CT scan. We will continue to monitor his kidney function on a daily basis. There is no emergent indication for dialysis at present. 2. Hypoxemia. This is chronic and related to his chronic obstructive pulmonary disease (COPD). He also has bilateral pleural effusions. I will give him a trial of diuretic today with Lasix 60 mg one dose intravenously and monitor his kidney function and urine output. 3. Partial small bowel obstruction. The patient had a nasogastric tube for a few days which has now been removed. He is tolerating oral liquids well. He is being followed by surgery.
[2016-03-17 14:00] VITALS: BP 158/68
[2016-03-17] MEDS: hydrOXYzine 50 MG TAB PO SCH (20:46)
[2016-03-17] MEDS: TERAZOSIN 5 MG CAP PO SCH (20:47)
[2016-03-17] MEDS: SIMVASTATIN 20 MG TAB PO SCH (20:48)
[2016-03-17 22:00] VITALS: BP 151/74
[2016-03-18] MEDS: CIPROFLOXACIN 200 MG in APPROPRIATE DILUENT 1 EA IV SCH (05:25)
[2016-03-18] MEDS: SODIUM CHLORIDE 0.9% INJ 10 ML SYR IV SCH ×2 (05:28→18:01)
[2016-03-18 05:54] LABS: MEAN CORPUSCULAR HEMOGLOBIN 27.7 pg (27.0-33.0); MEAN CORPUSCULAR HGB CONC 33.1 g/dl (32.0-36.5); MEAN CORPUSCULAR VOLUME 83.9 fl (80.0-96.0); RED CELL DISTRIBUTION WIDTH 15.3 % (11.5-14.5)
[2016-03-18 06:00] VITALS: BP 169/72
[2016-03-18 06:39] LABS: ALBUMIN 2.4 GM/DL (3.2-5.2); CALCIUM LEVEL 8.6 MG/DL (8.8-10.2); CREATININE FOR GFR 4.14 MG/DL (0.70-1.30); PHOSPHORUS LEVEL 6.3 MG/DL (2.5-4.9); POTASSIUM SERUM 4.4 MEQ/L (3.5-5.1)
[2016-03-18] MEDS: ALBUTEROL SULFATE 2.5 MG/0.5 ML INH NEB SOLN INH SCH ×3 (08:00→19:57)
[2016-03-18] MEDS: NIFEdipine 60 MG XL TAB PO SCH (08:05)
[2016-03-18] MEDS: VITAMIN D 1,000 INTERNATIONAL UNITS TABLET PO SCH (08:05)
[2016-03-18] MEDS: **hydrALAZINE HCL** 25 MG TAB PO SCH ×2 (08:05→21:12)
[2016-03-18] MEDS: ASPIRIN 81 MG ENTERIC TAB PO SCH (08:05)
[2016-03-18] MEDS: OMEPRAZOLE 20 MG CAP PO SCH (08:05)
[2016-03-18] MEDS: FERROUS SULFATE 325MG TAB PO SCH ×2 (08:05→21:11)
[2016-03-18] MEDS: MIRALAX *UNIT DOSE* 17GM PACKET PO SCH (08:06)
[2016-03-18] MEDS: MULTIVITAMINS/MINERALS THERAP 1 TAB PO SCH (08:06)
[2016-03-18] MEDS: LABETALOL 200 MG TAB PO SCH ×2 (08:06→21:13)
[2016-03-18] MEDS: cloNIDine 0.1 MG TAB PO SCH ×2 (08:06→21:12)
[2016-03-18] MEDS: HumaLOG INSULIN (NovoLOG) PER UNIT SC SCH ×4 (08:07→21:02)
[2016-03-18] MEDS: SYMBICORT 160/4.5MCG INHALER 6GM INH SCH ×2 (08:47→19:58)
[2016-03-18] MEDS: TIOTROPIUM INHALER/CAPSULE (SPIRIVA) INH SCH (08:47)
--- NOTE | 2016-03-18 12:09 | IPNPDOC ---
Date/Time Seen The patient was seen on 03/18/16 at 11:54. Progress Note DATE OF ENCOUNTER: 03/18/2016 SUBJECTIVE: : Patient was seen this morning at bedside. He was sitting up in bed and physical therapy was getting ready to move him to the chair. No acute overnight issues. NG tube remains out. He reports that his abdominal pain is improved. He had several bowel movements yesterday. He is tolerating his clear liquid diet. Brief review of systems is negative for nausea, vomiting, chest pain or pressure , increased shortness of breath, fevers, chills. Ileus improving and appetite is good. OBJECTIVE: Vital Signs Date Time Temp Pulse Resp B/P Pulse Ox O2 Delivery O2 Flow Rate FiO2 03/18/16 09:00 Nasal Cannula 3.0 03/18/16 08:06 82 169/72 03/18/16 06:00 97.8 20 94 I&O- Last 24 Hours up to 6 AM 03/18/16 06:00 Intake Total 1520 ml Output Total 1175 ml Balance 345 ml GENERAL: Awake and alert, in no acute distress HEENT: Normocephalic, atraumatic. Extraocular movements intact. Moist mucosa. NECK: Supple. Jugular veins are not significantly elevated. HEART: Normal S1, S2. Regular rate and rhythm. No murmurs appreciated. LUNGS: Diminished breath sounds. No distinct rales or rhonchi could be appreciated. ABDOMEN: Abdomen is distended and on the firm side. Mild tenderness to palpation. Bowel sounds are present. No rebound, guarding or rigidity. EXTREMITIES: No cyanosis or significant edema. Positive pedal pulses bilaterally. NEUROLOGIC: No new focal deficits. LABORATORY DATA: 03/18/16 05:23 Red Blood Count 3.06 L, Mean Corpuscular Volume 83.9, Mean Corpuscular Hemoglobin 27.7, Mean Corpuscular Hemoglobin Concent 33.1, Red Cell Distribution Width 15.3 H, Albumin 2.4L, Anion Gap 15, Calcium Level 8.6L, Glomerular Filtration Rate 15.0L, Phosphorus Level 6.3H MICROBIOLOGY: Blood culture shows no growth thus far. Urine positive for Enterococcus faecalis. IMAGING: Renal ultrasound done on 03/12 revealed chronic renal disease, no hydronephrosis. Abdominal x-ray done on 03/12 revealed gas and fluid dilated stomach. Abdominal/pelvis CT on 03/12 showed gastric as well as small bowel distention suggesting possible early partial small bowel obstruction, no free air. Moderate fecal stasis and constipation involving the rectosigmoid. Abdominal x-ray done 03/13 showed marked distention of the stomach, unchanged from previous. Abdominal x-ray performed 03/15 showed progressive dilatation of central abdominal bowel loop. Abdominal CT on 03/15 does not show obstruction. ASSESSMENT AND PLAN: Mr. 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 1. Acute on chronic kidney disease stage III. His GI issues are complicating his renal function. Creatinine is minimally improved. Repeat abdominal CT does not show obstruction so hopefully his renal function can start to turn around. No compelling evidence for acidosis and electrolytes are stable. Given patient' s interstitial edema on chest x-ray and CT showing bilateral effusions, intravenous fluids were discontinued and he was given a dose of Lasix yesterday. He is still in positive balance. He will have a repeat chest x-ray done today to evaluate pulmonary edema and effusions. If he has persistent interstitial edema, another one time dose of 60mg IV Lasix should be given. We will also bladder scan him and continue to monitor his renal function over the next few days. 2. Ileus/partial small bowel obstruction. CT performed on 03/15 does not show any obstruction. He no longer has an NG tube in place and he is tolerating clear liquid diet. Surgery is currently following. 3. Urinary tract infection with culture positive for Enterococcus faecalis. Patient is on ciprofloxacin. 4. Hypertension. Blood pressure suboptimal. Continue home medications which include clonidine, hydralazine, labetalol, Procardia, and terazosin. Hydrochlorothiazide, Lasix and losartan held on admission secondary to acute kidney injury. 5. Chronic diastolic heart failure. Volume status appears stable. 6. Anemia in chronic kidney disease. Hemoglobin is currently stable. GME ATTESTATION GME ATTESTATION My preceptor for this patient encounter was physically present in the building during the encounter and was fully available. As needed, all aspects of the patient interview, examination, medical decision making process, and medical care plan development were reviewed and approved by the preceptor. Preceptor is aware and concurs with the plan as stated in the body of this note and will attest to such by his/her cosignature. ATTENDING NOTE Nephrology Attending: Pt was seen and examined during work rounds. Pt is non oliguric. Cr at 4. monitor for improvement. CXR no Edema today. JAKOB ARRIAZA DO Mar 18, 2016 12:09 INGRID MAY MD Mar 18, 2016 22:02
--- NOTE | 2016-03-18 13:04 | IPNPDOC ---
Assessment/Plan Date Seen The patient was seen on 03/18/16. Problems Problems: (1) Ileus Status: Resolved Response to Treatment: Stable Problem Text: The patient was able to tolerate a regular diet yesterday In addition, and more importantly the patient did pass a large bowel movement and 2 more smaller BMs yesterday The patient's abdomen appears much less distended today. Tolerating regular diet well We will continue to monitor his progress (2) Acute kidney injury superimposed on CKD Status: Acute Response to Treatment: Improving Problem Text: Patient's serum creatinine elevated in the 4s, baseline around 2 Initially thought to be secondary to prerenal azotemia as the patient did present with diarrhea Possibly secondary to underlying abdominal distention from ileus vs ?Small bowel obstruction Ultrasound of the kidneys ordered-notable for medical renal disease Nephrotoxins held Electrolytes stable Nephrology on board (3) Diastolic CHF Status: Chronic Response to Treatment: Stable Problem Text: Currently appears clinically compensated Diuretic therapy as per Nephro (4) Occupational lung disease Status: Chronic Problem Text: Continue on albuterol, Symbicort, tiotropium (5) Diabetes Status: Chronic Problem Text: Continue on insulin sliding scale (6) Chronic anemia Status: Chronic Problem Text: Hemoglobin noted we will continue to monitor (7) Obesity Status: Chronic (8) ANKITA (obstructive sleep apnea) Status: Chronic (9) Gait instability Status: Chronic Problem Text: Physical therapy ordered (10) CAD in [place] artery Status: Chronic Problem Text: Continue aspirin, nel, simvastatin (11) Hypertension Status: Chronic Response to Treatment: Stable Problem Text: Continue current anti-hypertensive regimen. Plan / VTE VTE Prophylaxis Ordered?: Yes Subjective Review of Systems CC/HPI The patient is a 75-year-old male admitted with a reason for visit of [place] ( Acute Kidney Injury). General: Denies: Chills, Night Sweats Constitutional: Denies: Chills, Fever Eyes: Denies: Pain, Vision change ENT: Denies: Ear Pain, Head Aches Skin: Denies: Lesions, Rash Pulmonary: Reports: Dyspnea, Denies: Cough Cardiovascular: Denies: Chest Pain, Palpitations Gastrointestinal: Denies: Abdominal Pain, Nausea, Vomiting Hematologic: Denies: Bleeding Excessively, Bruising Objective Physical Examination General Exam: Positive: Alert, Cooperative, No Acute Distress ENT Exam: Positive: Atraumatic, Mucous membr. moist/pink Chest Exam: Positive: Clear to auscultation, Diminished, Normal air movement, Negative: Rales Heart Exam: Positive: Normal S1, Normal S2, Rate Normal Abdomen Exam: Positive: Other (less distended today), Soft, Negative: Hepatospenomegaly, Tenderness Extremity Exam: Negative: Tenderness Vital Signs/I&O Vital Signs Date Time Temp Pulse Resp B/P Pulse Ox O2 Delivery O2 Flow Rate FiO2 03/18/16 09:00 Nasal Cannula 3.0 03/18/16 08:06 82 169/72 03/18/16 06:00 97.8 20 94 I&O- Last 24 Hours up to 6 AM 03/18/16 06:00 Intake Total 1520 ml Output Total 1175 ml Balance 345 ml Laboratory Data Labs 24H Laboratory Tests 2 03/17/16 16:40: Bedside Glucose (Misc Panel) 118H 03/17/16 20:37: Bedside Glucose (Misc Panel) 144H 03/18/16 05:23: Albumin 2.4L, Blood Urea Nitrogen 89H, Creatinine 4.14H, Sodium Level 142, Potassium Level 4.4, Chloride Level 103, Carbon Dioxide Level 24, Anion Gap 15, Calcium Level 8.6L, Glomerular Filtration Rate 15.0L, Phosphorus Level 6.3H CBC/BMP Laboratory Tests 03/18/16 05:23 Anion Gap 15, Red Blood Count 3.06 L, Mean Corpuscular Volume 83.9, Mean Corpuscular Hemoglobin 27.7, Mean Corpuscular Hemoglobin Concent 33.1, Red Cell Distribution Width 15.3 H FSBS Laboratory Tests Test 03/17/16 16:40 03/17/16 20:37 Range/Units Bedside Glucose (Misc Panel) 118 144 83-110 MG/DL Microbiology Microbiology 03/10/16 Blood Culture - Final, Complete NO GROWTH AFTER 5 DAYS 03/12/16 Gastrointestinal Tract Panel (PCR) - Final, Complete 03/10/16 MRSA Screen - Final, Complete 03/12/16 Urine Culture - Final, Complete Enterococcus Faecalis MARY PEOPLES MD Mar 18, 2016 13:04
[2016-03-18 14:00] VITALS: BP 140/70
--- NOTE | 2016-03-18 14:08 | REP ---
PORTABLE CHEST X-RAY: Single view. HISTORY: Shortness of breath. Comparison study March 15, 2016. FINDINGS: Oxygen delivery tubing is seen. There is a right-sided PICC line with its tip in the expected location of the superior vena cava. Pleural type opacity is seen in both bases suggesting small bilateral pleural effusions. No infiltrate is seen. Exam is otherwise unremarkable. Signed by Naresh Madden MD 03/18/2016 03:33 P
[2016-03-18] MEDS ORDERED: INFLUENZA VIRUS VACCINE HIGH DOSE 0.5 ML SYRINGE (90662) IM ONE (15:00)
[2016-03-18] MEDS: CIPROFLOXACIN 250 MG TAB PO SCH (18:02)
[2016-03-18] MEDS: SIMVASTATIN 20 MG TAB PO SCH (21:11)
[2016-03-18] MEDS: hydrOXYzine 50 MG TAB PO SCH (21:11)
[2016-03-18] MEDS: TERAZOSIN 5 MG CAP PO SCH (21:12)
[2016-03-18 22:00] VITALS: BP 155/70
[2016-03-19] MEDS: SODIUM CHLORIDE 0.9% INJ 10 ML SYR IV SCH (05:50)
[2016-03-19] MEDS: CIPROFLOXACIN 250 MG TAB PO SCH ×2 (05:50→17:06)
[2016-03-19 06:00] VITALS: BP 175/68
[2016-03-19 06:11] LABS: MEAN CORPUSCULAR HEMOGLOBIN 27.6 pg (27.0-33.0); MEAN CORPUSCULAR HGB CONC 32.8 g/dl (32.0-36.5); MEAN CORPUSCULAR VOLUME 84.2 fl (80.0-96.0); RED CELL DISTRIBUTION WIDTH 15.6 % (11.5-14.5); WHITE BLOOD COUNT 11.4 K/mm3 (4.0-10.0)
[2016-03-19 06:23] LABS: ALBUMIN 2.3 GM/DL (3.2-5.2); CALCIUM LEVEL 8.7 MG/DL (8.8-10.2); CREATININE FOR GFR 3.81 MG/DL (0.70-1.30); GLOMERULAR FILTRATION RATE 16.5 (>42); POTASSIUM SERUM 4.2 MEQ/L (3.5-5.1)
[2016-03-19] MEDS: ALBUTEROL SULFATE 2.5 MG/0.5 ML INH NEB SOLN INH SCH ×3 (08:04→19:10)
[2016-03-19] MEDS: SYMBICORT 160/4.5MCG INHALER 6GM INH SCH ×2 (08:06→20:35)
[2016-03-19] MEDS: TIOTROPIUM INHALER/CAPSULE (SPIRIVA) INH SCH (08:18)
[2016-03-19] MEDS: HumaLOG INSULIN (NovoLOG) PER UNIT SC SCH ×4 (09:16→20:22)
[2016-03-19] MEDS: VITAMIN D 1,000 INTERNATIONAL UNITS TABLET PO SCH (09:17)
[2016-03-19] MEDS: MIRALAX *UNIT DOSE* 17GM PACKET PO SCH (09:17)
[2016-03-19] MEDS: NIFEdipine 60 MG XL TAB PO SCH (09:17)
[2016-03-19] MEDS: MULTIVITAMINS/MINERALS THERAP 1 TAB PO SCH (09:17)
[2016-03-19] MEDS: FERROUS SULFATE 325MG TAB PO SCH ×2 (09:17→20:22)
[2016-03-19] MEDS: cloNIDine 0.1 MG TAB PO SCH ×2 (09:18→20:21)
[2016-03-19] MEDS: LABETALOL 200 MG TAB PO SCH ×2 (09:18→20:21)
[2016-03-19] MEDS: **hydrALAZINE HCL** 25 MG TAB PO SCH ×3 (09:19→20:22)
[2016-03-19] MEDS: ASPIRIN 81 MG ENTERIC TAB PO SCH (09:19)
[2016-03-19] MEDS: OMEPRAZOLE 20 MG CAP PO SCH (09:19)
[2016-03-19 14:00] VITALS: BP 159/62
--- NOTE | 2016-03-19 14:18 | IPNPDOC ---
Date/Time Seen The patient was seen on 03/19/16 at 14:07. Progress Note DATE OF ENCOUNTER: 03/19/2016 SUBJECTIVE: Patient was seen this morning at bedside. He was sitting up in his chair. No acute overnight issues. He reports that his abdominal pain is improved and that he had a bowel movement yesterday. He is tolerating a regular diet. Review of systems is negative for nausea, vomiting, diarrhea, chest pain or pressure, increased shortness of breath, headache, lightheadedness, dizziness, fevers, chills, bleeding. Ileus appears to be improving and appetite is good. OBJECTIVE: Vital Signs Date Time Temp Pulse Resp B/P Pulse Ox O2 Delivery O2 Flow Rate FiO2 03/19/16 09:18 80 03/19/16 09:17 168/78 03/19/16 09:00 Nasal Cannula 3.0 03/19/16 06:00 98.6 19 95 I&O- Last 24 Hours up to 6 AM 03/19/16 06:00 Intake Total 1420 ml Output Total 870 ml Balance 550 ml GENERAL: Awake and alert, in no acute distress HEENT: Normocephalic, atraumatic. Extraocular movements intact. Moist mucosa. NECK: Supple. Jugular veins are not significantly elevated. HEART: Normal S1, S2. Regular rate and rhythm. No murmurs appreciated. LUNGS: Diminished breath sounds. Positive for expiratory wheezing. No distinct rales or rhonchi could be appreciated. ABDOMEN: Abdomen is distended, but soft. Persistent mild tenderness to palpation. Bowel sounds are present. No rebound, guarding or rigidity. EXTREMITIES: No cyanosis or significant edema. Positive pedal pulses bilaterally. NEUROLOGIC: No focal deficits. LABORATORY DATA: 03/19/16 05:54 Red Blood Count 3.14 L, Mean Corpuscular Volume 84.2, Mean Corpuscular Hemoglobin 27.6, Mean Corpuscular Hemoglobin Concent 32.8, Red Cell Distribution Width 15.6 H, Albumin 2.3L, Anion Gap 12, Calcium Level 8.7L, Glomerular Filtration Rate 16.5L, Phosphorus Level 5.0H MICROBIOLOGY: Blood culture shows no growth thus far. Urine positive for Enterococcus faecalis. IMAGING: Renal ultrasound done on 03/12 revealed chronic renal disease, no hydronephrosis. Abdominal x-ray done on 03/12 revealed gas and fluid dilated stomach. Abdominal/pelvis CT on 03/12 showed gastric as well as small bowel distention suggesting possible early partial small bowel obstruction, no free air. Moderate fecal stasis and constipation involving the rectosigmoid. Abdominal x-ray done 03/13 showed marked distention of the stomach, unchanged from previous. Abdominal x-ray performed 03/15 showed progressive dilatation of central abdominal bowel loop. Abdominal CT on 03/15 does not show obstruction. ASSESSMENT AND PLAN: Mr. 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 1. Acute on chronic kidney disease stage III. His GI issues are complicating his renal function. Creatinine appears to be turning the corner and improving. Repeat abdominal CT does not show obstruction so hopefully with resolution of his ileus, renal function will continue to improve. There is no compelling evidence for acidosis and electrolytes are stable. His volume status appears stable, without evidence of significant volume overload. His repeat chest x-ray showed bilateral small pleural effusion. No further diuretics will be given at this time. Monitor renal function over the next few days and avoid nephrotoxic medications. 2. Ileus/partial small bowel obstruction. CT performed on 03/15 does not show any obstruction. He is tolerating a regular diet and this appears to be improving. 3. Urinary tract infection with culture positive for Enterococcus faecalis. Patient is on ciprofloxacin. 4. Hypertension. Blood pressure suboptimal. Hydralazine has already been increased to 3 times daily by primary team. Continue with other home medications which include clonidine, labetalol, Procardia, and terazosin. Hydrochlorothiazide, Lasix and losartan held on admission secondary to acute kidney injury. 5. Chronic diastolic heart failure. Volume status appears stable. 6. Anemia in chronic kidney disease. Hemoglobin is currently stable. GME ATTESTATION GME ATTESTATION My preceptor for this patient encounter was physically present in the building during the encounter and was fully available. As needed, all aspects of the patient interview, examination, medical decision making process, and medical care plan development were reviewed and approved by the preceptor. Preceptor is aware and concurs with the plan as stated in the body of this note and will attest to such by his/her cosignature. ATTENDING NOTE Nephrology Attending: Pt was seen and examined this morning with the resident. I agree with the assessment and recommendations. Renal function is slowly improving. JAKOB ARRIAZA DO Mar 19, 2016 14:18 INGRID MAY MD Mar 19, 2016 21:30
--- NOTE | 2016-03-19 18:15 | IPN ---
DATE: 03/19/2016 The patient was seen and examined. No acute events overnight. Currently comfortable. Denies any chest pain, pressure or discomfort. Denies any dyspnea. Denies any fevers or chills. VITAL SIGNS: Temperature 96.9, pulse 92, respirations 20, blood pressure 159/62, pulse oximetry 95% on 3 liters nasal cannula. LABORATORY DATA: WBC 11.4, hemoglobin and hematocrit 8.7/26.5, platelets 290. Chemistry: Sodium 141, potassium 4.2, chloride 102, bicarbonate 27, BUN 89, creatinine 3.81. PHYSICAL EXAMINATION: GENERAL: The patient is alert, oriented times three, in no acute distress. Comfortable. HEENT: Normocephalic, atraumatic. Moist mucous membranes. PULMONARY: Bilaterally clear to auscultation. Diminished breath sounds bilaterally. CARDIAC: Regular rate and rhythm. Normal S1, S2. ABDOMEN: Obese, soft, nontender. Hypoactive bowel sounds. Minimal distention. EXTREMITIES: No edema in bilateral lower extremities. ASSESSMENT AND PLAN: This is a 75-year-old male patient with underlying medical history of chronic kidney disease stage 3, chronic lung disease from occupational exposure on 3 liters home oxygen, hypertension, gout, coronary arterial disease with myocardial infarction, diastolic congestive heart failure (CHF), type 2 diabetes, benign prostatic hypertrophy (BPH) , gastritis, dyslipidemia, history of pulmonary embolism, history of gastrointestinal bleed, sleep apnea, not on CPAP. The patient was admitted with acute on chronic renal failure secondary to ileus with nausea and vomiting. 1. Ileus. The patient is tolerating a diet. Continue bowel regimen. The patient is having bowel movements. Continue diet. Appreciate assistance from surgical consultation. Continue to monitor. 2. Acute on chronic renal failure. Baseline creatinine around 2, currently improved. Likely secondary to prerenal azotemia in the presence of diarrhea, nausea and vomiting. Ultrasound of the kidneys appreciated. Avoid nephrotoxic agents. Nephrology consulted. Kidney function currently improved. Continue to monitor. 3. Diastolic congestive heart failure (CHF), stable, compensated. Withholding diuretics right now. We will restart as per nephrology. 4. Occupational lung disease with chronic hypoxia, oxygen supplementation. Continue Symbicort, ipratropium, and albuterol. Continue to follow. 5. Type 2 diabetes. Continue insulin as per protocol. Followup fingersticks. 6. Chronic anemia. Continue to monitor. 7. Obesity. Complicating care. 8. Obstructive sleep apnea. Not on CPAP, obstructive sleep apnea protocol. 9. Gait instability. Continue physical therapy (PT). 10. Coronary arterial disease. Continue aspirin, beta nel and statin. 11. Hypertension. Continue blood pressure medication as ordered. 12. Urinary tract infection (UTI). Continue antibiotics as ordered. Cultures appreciated. 13. Benign prostatic hypertrophy (BPH) . Continue home medication . 14. Deep vein thrombosis (DVT) prophylaxis. We will place the patient on heparin subcutaneously. DISPOSITION: Pending physical therapy (PT), clinical improvement, potential placement.
[2016-03-19] MEDS: HEPARIN SOD (PORCINE) 5000 UNITS/ML VIAL SQ SCH (20:20)
[2016-03-19] MEDS: TERAZOSIN 5 MG CAP PO SCH (20:21)
[2016-03-19] MEDS: SIMVASTATIN 20 MG TAB PO SCH (20:21)
[2016-03-19] MEDS: hydrOXYzine 50 MG TAB PO SCH (20:22)
[2016-03-19 21:00] VITALS: BP 165/62
[2016-03-19 22:00] VITALS: BP 159/81
[2016-03-20 01:00] VITALS: BP 161/76
[2016-03-20] MEDS: CIPROFLOXACIN 250 MG TAB PO SCH ×2 (05:18→17:01)
[2016-03-20 05:23] VITALS: BP 164/74
[2016-03-20 06:41] LABS: MEAN CORPUSCULAR HEMOGLOBIN 27.1 pg (27.0-33.0); MEAN CORPUSCULAR HGB CONC 31.5 g/dl (32.0-36.5); MEAN CORPUSCULAR VOLUME 86.1 fl (80.0-96.0); RED CELL DISTRIBUTION WIDTH 16.3 % (11.5-14.5); WHITE BLOOD COUNT 12.6 K/mm3 (4.0-10.0)
[2016-03-20 06:57] LABS: ALBUMIN 2.3 GM/DL (3.2-5.2); CREATININE FOR GFR 3.77 MG/DL (0.70-1.30); GLOMERULAR FILTRATION RATE 16.7 (>42); PHOSPHORUS LEVEL 4.6 MG/DL (2.5-4.9); POTASSIUM SERUM 4.2 MEQ/L (3.5-5.1)
[2016-03-20] MEDS: TIOTROPIUM INHALER/CAPSULE (SPIRIVA) INH SCH (07:51)
[2016-03-20] MEDS: ALBUTEROL SULFATE 2.5 MG/0.5 ML INH NEB SOLN INH SCH ×3 (07:51→19:47)
[2016-03-20] MEDS: SYMBICORT 160/4.5MCG INHALER 6GM INH SCH ×2 (07:53→21:00)
[2016-03-20] MEDS: MIRALAX *UNIT DOSE* 17GM PACKET PO SCH (08:30)
[2016-03-20] MEDS: HumaLOG INSULIN (NovoLOG) PER UNIT SC SCH ×4 (08:30→20:35)
[2016-03-20] MEDS: **hydrALAZINE HCL** 25 MG TAB PO SCH ×3 (08:31→20:29)
[2016-03-20] MEDS: HEPARIN SOD (PORCINE) 5000 UNITS/ML VIAL SQ SCH ×2 (08:31→20:29)
[2016-03-20] MEDS: VITAMIN D 1,000 INTERNATIONAL UNITS TABLET PO SCH (08:32)
[2016-03-20] MEDS: FERROUS SULFATE 325MG TAB PO SCH ×2 (08:32→20:28)
[2016-03-20] MEDS: OMEPRAZOLE 20 MG CAP PO SCH (08:32)
[2016-03-20] MEDS: ASPIRIN 81 MG ENTERIC TAB PO SCH (08:32)
[2016-03-20] MEDS: MULTIVITAMINS/MINERALS THERAP 1 TAB PO SCH (08:32)
[2016-03-20] MEDS: cloNIDine 0.1 MG TAB PO SCH ×2 (08:33→20:28)
[2016-03-20] MEDS: LABETALOL 200 MG TAB PO SCH ×2 (08:33→20:27)
[2016-03-20] MEDS: NIFEdipine 60 MG XL TAB PO SCH (08:34)
[2016-03-20] MEDS: SENOKOT S TAB PO SCH ×2 (08:51→20:26)
[2016-03-20] MEDS ORDERED: CLOPIDOGREL 75 MG TAB PO STA (09:39)
[2016-03-20] MEDS ORDERED: FUROSEMIDE 40 MG/4 ML VIAL (J1940) IV ONE (10:15)
[2016-03-20] MEDS: amLODIPine 5 MG TAB PO SCH (10:38)
--- NOTE | 2016-03-20 11:28 | IPNPDOC ---
Date/Time Seen The patient was seen on 03/20/16 at 11:13. Progress Note DATE OF ENCOUNTER: 03/20/2016 SUBJECTIVE: Patient was seen this morning at bedside. He was laying in bed comfortably. He apparently has some shortness of breath overnight and troponin level was found to be mildly elevated. This morning he is not reporting any chest pain or shortness of breath. Review of systems is positive for abdominal "soreness." He is tolerating a regular diet, but does not have much of an appetite. Last bowel movement was 2 days ago, he is on Senokot and MiraLAX. States that he feels like his bowels are getting ready to move soon. Negative for nausea, vomiting, diarrhea, chest pain or pressure, increased shortness of breath, headache, lightheadedness, dizziness, fevers, chills. OBJECTIVE: Vital Signs Date Time Temp Pulse Resp B/P Pulse Ox O2 Delivery O2 Flow Rate FiO2 03/20/16 10:38 94 168/70 03/20/16 05:23 98.6 18 95 Nasal Cannula 3.0 I&O- Last 24 Hours up to 6 AM 03/20/16 06:00 Intake Total 840 ml Output Total 1375 ml Balance -535 ml GENERAL: Awake and alert, in no acute distress HEENT: Normocephalic, atraumatic. Extraocular movements intact. Moist mucosa. NECK: Supple. Jugular veins are not significantly elevated. HEART: Normal S1, S2. Regular rate and rhythm. No murmurs appreciated. LUNGS: Diminished breath sounds. No distinct rales or rhonchi could be appreciated. ABDOMEN: Abdomen is distended, but soft. Mild tenderness to deep palpation. Bowel sounds are present. No rebound, guarding or rigidity. EXTREMITIES: No cyanosis or lower extremity edema. Positive pedal pulses bilaterally. NEUROLOGIC: No focal deficits. LABORATORY DATA: 03/20/16 06:14 Red Blood Count 3.25 L, Mean Corpuscular Volume 86.1, Mean Corpuscular Hemoglobin 27.1, Mean Corpuscular Hemoglobin Concent 31.5 L, Red Cell Distribution Width 16.3 H, Albumin 2.3L, Anion Gap 12, B-Type Natriuretic Peptide 334H, Calcium Level 9.0, Glomerular Filtration Rate 16.7L, Phosphorus Level 4.6 03/19/16 21:08: Creatine Kinase MB 9.4H, Creatine Kinase MB Relative Index 7.06H, Total Creatine Kinase 133, Troponin I 0.53H 03/20/16 03:19: Creatine Kinase MB 7.4H, Creatine Kinase MB Relative Index 6.98H, Total Creatine Kinase 106, Troponin I 0.48H 03/20/16 09:54: Creatine Kinase MB 8.4H, Creatine Kinase MB Relative Index 6.17H, Total Creatine Kinase 136, Troponin I 0.39H MICROBIOLOGY: Blood culture shows no growth thus far. Urine positive for Enterococcus faecalis. IMAGING: Renal ultrasound done on 03/12 revealed chronic renal disease, no hydronephrosis. Abdominal x-ray done on 03/12 revealed gas and fluid dilated stomach. Abdominal/pelvis CT on 03/12 showed gastric as well as small bowel distention suggesting possible early partial small bowel obstruction, no free air. Moderate fecal stasis and constipation involving the rectosigmoid. Abdominal x-ray done 03/13 showed marked distention of the stomach, unchanged from previous. Abdominal x-ray performed 03/15 showed progressive dilatation of central abdominal bowel loop. Abdominal CT on 03/15 does not show obstruction. ASSESSMENT AND PLAN: Mr. Snyder is a 75 year old male with past medical history significant for chronic kidney disease stage III, diastolic heart failure, chronic lung disease from occupational exposure with 3 L home O2, hypertension, gout, coronary artery disease with history of [place], diabetes mellitus type 2, hyperlipidemia, BPH, history of GI bleed and gastritis and sleep apnea not on CPAP who presented due to hypoglycemia, found to be in acute on chronic renal failure with partial small bowel obstruction. 1. Acute on chronic kidney disease stage III. Creatinine appears to be slowly improving. It appears that his GI issues is also slowly improving. His electrolytes are stable at this point in time and there is no emergent need for hemodialysis. Given that patient did have some shortness of breath overnight and is not on his home dose of diuretics secondary to acute injury, a dose of Lasix will be given. His brain natriuretic peptide appears improved from previous. 2. Elevated troponin. This morning patient is not complaining of any chest pain or shortness of breath. His troponins are trending downwards and will need to be monitored closely. I believe cardiology has been consult it. 3. Chronic diastolic heart failure. He takes Lasix and hydrochlorothiazide at home, both of which have been held and admission due to acute kidney injury. He will be given a dose of Lasix today. Brain natriuretic peptide does appear improved. We will reassess his volume status tomorrow. 4. Ileus/partial small bowel obstruction. CT performed on 03/15 does not show any obstruction. He is tolerating a regular diet and this appears to be slowly improving. 5. Urinary tract infection with culture positive for Enterococcus faecalis. Patient is on ciprofloxacin, initiated on 03/18. 6. Hypertension. Blood pressure suboptimal. Hydralazine has already been increased to 3 times daily and he has been changed from nifedipine to amlodipine by primary team. Continue with other home medications which include clonidine, labetalol, and terazosin. Hydrochlorothiazide, Lasix and losartan held on admission secondary to acute kidney injury. Continue to monitor blood pressure. 7. Anemia in chronic kidney disease. Hemoglobin is currently stable. GME ATTESTATION GME ATTESTATION My preceptor for this patient encounter was physically present in the building during the encounter and was fully available. As needed, all aspects of the patient interview, examination, medical decision making process, and medical care plan development were reviewed and approved by the preceptor. Preceptor is aware and concurs with the plan as stated in the body of this note and will attest to such by his/her cosignature. ATTENDING NOTE Nephrology attending: Pt was examined with the resident this AM. Give lasix 40 mg IV today. I agree with the above assessment and plan. JAKOB ARRIAZA DO Mar 20, 2016 11:27 INGRID MAY MD Mar 20, 2016 18:22
[2016-03-20 12:00] VITALS: BP 167/75
[2016-03-20 16:00] VITALS: BP 186/86
--- NOTE | 2016-03-20 16:28 | IPN ---
DATE: 03/20/2016 The patient is seen and examined. Reported an episode of chest pain, bilateral, aching, dull, very mild, about 4/10, lasting about 20 minutes, resolved on its own overnight. An EKG was done showing no acute changes. Cardiac enzyme was mildly elevated. Serial cardiac enzyme was done. The patient reported currently pain resolved. Denies any chest pain, pressure or discomfort. Continue to have weakness, has hypertension. Case was discussed with Dr. Subramanian, recommending keeping the patient on aspirin, load the patient on Plavix, continue statin. VITAL SIGNS: Temperature 97.8, pulse 90, respirations 23, blood pressure 167/75, pulse oximetry 95% on three liters nasal cannula. LABORATORY DATA: WBC 12.6, hemoglobin and hematocrit 8.8/28, platelets 281. Chemistry: Sodium 142, potassium 4.2, chloride 104, bicarbonate 26, BUN 93, creatinine 3.77. Cardiac enzyme: Troponin 0.53, 0.48, 0.39. PHYSICAL EXAMINATION: GENERAL: The patient is alert and oriented times three, in no acute distress, comfortable. HEENT: Normocephalic, atraumatic. Moist mucous membranes. PULMONARY: Mild crackle bilateral base. Diminished breath sounds bilateral base. CARDIAC: Regular rate and rhythm with normal S1, S2. ABDOMEN: Obese, soft, nontender. Positive bowel sounds. Minimal distention. EXTREMITIES: No edema of bilateral lower extremities. ASSESSMENT AND PLAN: This is a 75-year-old male patient with underlying medical history of chronic kidney disease (CKD) stage III, chronic lung disease from occupational exposure on three liters of oxygen at home, hypertension, gout, coronary arterial disease with myocardial infarction (OR), diastolic congestive heart failure (CHF), type 2 diabetes, benign prostatic hypertrophy (BPH) , gastritis, dyslipidemia, history of pulmonary embolism, history of gastrointestinal (GI) bleed, sleep apnea, not on continuous positive airway pressure (CPAP). The patient was admitted with acute on chronic renal failure secondary to ileus with nausea and vomiting. 1. Ileus. The patient is tolerating diet. Continue bowel regimen, having bowel movement. Continue current diet. Surgical consult appreciated. Continue to monitor. 2. Acute on chronic renal failure. Baseline creatinine around 2, currently slightly improved. Likely secondary to prerenal azotemia in the presence of diarrhea, nausea and vomiting. Ultrasound of the kidneys appreciated. Avoid nephrotoxic agents. Nephrology consulted. Continue to monitor. 3. Diastolic congestive heart failure (CHF), compensated. Restarting diuretics as per nephrology. Strict input and output and daily weights. 4. Chest pain with troponin leak. The possible etiology including fluid overload due to worsening kidney function versus demand ischemia versus unstable angina. Consulted Dr. Subramanian. Followup echocardiogram. Aspirin, Plavix, beta nel, and statin. EKGs appreciated. Serial cardiac enzymes appreciated. 5. Type 2 diabetes. Continue insulin as per protocol. Followup fingersticks. 6. Occupational lung disease with chronic hypoxia, oxygen supplementation. Continue Symbicort, ipratropium, and albuterol. Continue to follow. 7. Chronic anemia. Hemoglobin and hematocrit stable. Continue to follow. 8. Obesity. Complicating care. 9. Obstructive sleep apnea. Not on CPAP, obstructive sleep apnea (ANKITA) protocol. 10. Gait instability. Continue physical therapy. 11. Coronary arterial disease. Aspirin, Plavix, beta nel, and statin. 12. Hypertension. Continue blood pressure medication as ordered. Isosorbide dinitrate had been added. Adjust medication as needed. 13. Urinary tract infection (UTI). Continue antibiotics as ordered. Cultures appreciated. 14. BPH. Continue home medications. 15. Deep vein thrombosis (DVT) prophylaxis. Patient on heparin subcutaneously. DISPOSITION: Pending physical therapy, clinical improvement, echocardiogram, potential placement, and cardiology consultation.
[2016-03-20] MEDS: ISOSORBIDE DIN (ISORDIL) 10 MG TAB PO SCH (16:48)
[2016-03-20 20:00] VITALS: BP 151/71
[2016-03-20] MEDS: SIMVASTATIN 20 MG TAB PO SCH (20:27)
[2016-03-20] MEDS: TERAZOSIN 5 MG CAP PO SCH (20:27)
[2016-03-20] MEDS: hydrOXYzine 50 MG TAB PO SCH (20:28)
[2016-03-21] VITALS (7 sets, daily range): BP systolic 138–164; BP diastolic 62–71
--- NOTE | 2016-03-21 02:26 | CR ---
DATE OF CONSULTATION: 03/20/2016 PRIMARY CARE PROVIDER: [facility], [place] CONSULTATION REPORT FOR: Dr. Gayathri Gonzalez REASON FOR CONSULTATION: Abnormal serum troponin, chest pain. HISTORY OF PRESENT ILLNESS: 75-year-old male with a history of coronary artery disease, hypertension, hyperlipidemia, chronic kidney disease, obesity, occupational lung disease for which he has been on home oxygen therapy at three liters per minute continuously, obesity, and sleep apnea for which he has been on continuous positive airway pressure (CPAP), anemia, and history of gastrointestinal (GI) bleed, arthritis/gout, who has been doing fairy well at home where he lives with his . He stated that he came to the hospital on 03/20/2016, because he was having recurrent low blood sugar, symptomatic associated with nausea, diaphoresis, and weakness. He has also been having nausea and vomiting and some abdominal discomfort. He was found on admission to have acute kidney injury and partial small bowel obstruction. His serum troponin initially was normal, but it seems that during the night he developed some shortness of breath and chest tightness, and his serum troponin bumped up and cardiology consult was called. His blood pressure was markedly elevated and this was discussed earlier today with his hospitalist. He was brought to progressive care unit (PCU)/intensive care unit (ICU) for further management and monitoring. His Procardia/nifedipine was discontinued and he was started on amlodipine for his hypertension. When I saw Mr. Davin Snyder this evening, he was supine in bed in the ICU/CCU, in no acute distress at rest. He stated that he feels better and he has not been having any chest pain, chest tightness, or chest pressure. He does have some shortness of breath which he thinks is baseline. He denies any palpitations , dizziness. He denies any history of syncope or near syncope. There is no report of bleeding. He has a cough, but no hemoptysis. There is no nausea, vomiting, or diarrhea. His first serum troponin was 0.02 on 03/12/2016, and last evening upon repeating it, it was 0.53, and this morning 0.48, then 0.39. PAST MEDICAL HISTORY: He has a past medical history positive for chronic kidney disease stage 3, and in the past, he stated that he was seeing Dr. Sanabria. He also has history of coronary artery disease, but he denies myocardial infarction , pulmonary embolism, hypertension, hyperlipidemia, arthritis/gout, anemia, and history of GI bleeding, occupational lung disease and he has been on home oxygen therapy at three liters nasal cannula continuously, obesity, and sleep apnea an has been on CPAP. There is no history of significant valvular heart disease, atrial fibrillation, cerebrovascular accident (CVA), cardiomyopathy, sudden cardiac . PAST SURGICAL HISTORY: Positive for appendectomy and partial colectomy, cholecystectomy, and bilateral knee replacement. FAMILY HISTORY: Noncontributory. MEDICATIONS UPON ARRIVAL AT THE EMERGENCY ROOM: - NovoLog 12 units three times a day - Lantus insulin 36 units subcutaneous daily - glipizide 10 mg by mouth three times a day - vitamin D 1000 mg by mouth daily - vitamin C 500 mg by mouth - Tylenol with Codeine as directed for pain - terazosin 5 mg by mouth at bedtime - Symbicort 160/4.5 mcg two puffs daily - Spiriva HandiHaler 18 mcg one capsule daily via inhalation - simvastatin 40 mg tablet and half tablet by mouth daily - Proventil 90 mcg two puffs daily as needed - omeprazole 20 mg by mouth daily - nifedipine 120 mg by mouth daily - losartan 50 mg by mouth daily - labetalol 200 mg tablet one tablet twice a day - hydroxyzine 50 mg by mouth at bedtime - hydrochlorothiazide 12.5 mg by mouth daily - hydralazine 25 mg by mouth twice a day - furosemide 40 mg by mouth three times a week on Friday, Friday, and Friday - iron supplement 325 mg by mouth twice a day - colchicine 0.6 mg by mouth as needed daily - clonidine 0.1 mg by mouth twice a day - aspirin 81 mg by mouth daily - albuterol 2.5 mg/3 mL, three times a day via inhalation - Tylenol Arthritis 650 mg by mouth twice a day for pain - oxygen supplement on three liters nasal cannula continuously SOCIAL HISTORY: Patient lives with his and he had to stop smoking more than 40 years ago. He denies any ETOH abuse. ALLERGIES: No known drug allergies. PHYSICAL EXAMINATION: On examination, he is alert and oriented, in no acute distress at rest, but with mild shortness of breath. VITAL SIGNS: His last vital signs reported at 4 p.m. was blood pressure 186/86, but when I saw him at bedside, blood pressure was 150/75, with a pulse of 88, respirations 20, and his maximum temperature today was 98.6 degrees Fahrenheit with an oxygen saturation of 95-97% on three liters nasal cannula. HEENT: Atraumatic. Fundus examination was not done. NECK: Supple. I could not appreciate any jugular venous distention (JVD) or carotid bruits. LUNGS: Clear bilaterally on auscultation without any wheezing or crackles. HEART: The heart examination revealed normal S1 and S2 without gallops. The point of maximum impulse (PMI) is slightly displaced inferiorly. There is no rub. ABDOMEN: Soft and bowel sounds are active. EXTREMITIES: Revealed trace ankle edema. NEUROLOGICAL: Grossly negative for focal deficit. LABORATORY DATA: BMP done today revealed a sodium of 142, potassium 4.2, chloride 104, CO2 26, BUN 93, creatinine 3.77, and GFR 16.7, fasting glucose 1.38, calcium 9.0. BNP on admission, 03/20/2016, revealed a sodium of 140, potassium 4.6, chloride 103, CO2 25, BUN 55, creatinine 3.15, GFR 20.5, fasting glucose 134, and calcium is 8.6. Serum BNP on 12/13/2016, was 344. The serum troponin on 03/12/2016, was less than 0.02. Serum troponin yesterday, 03/19/2016, was 0.053 and today, it was 0.048 and 0.39 respectively. Serum today is down to 334. CBC done today revealed a WBC of 12.6, hemoglobin 8.8, hematocrit 28.0, and platelets 281,000. On admission, CBC revealed a WBC of 11.3, hemoglobin 9.9, hematocrit 31.2, and platelets 267,000. Urinalysis was positive for white blood cells and red blood cells and leukocyte esterase as well as protein and glucose and urine culture and grew Enterococcus faecalis. IMAGING: MRSA screening was negative. Blood culture have been negative after five days. Electrocardiogram on admission revealed normal sinus rhythm at 85 beats per minute, left axis deviation, left anterior hemiblock, right bundle branch block and poor R wave progression. It seems that there is no significantly changes from 09/30/2015. Chest x-ray done today revealed small bilateral pleural effusion, but no infiltrates. Chest x-ray on admission revealed cardiomegaly and increased interstitial markings. No effusion. IMPRESSION: 1. Abnormal serum troponin in this 75-year-old male with a history of underlying coronary artery disease, as well as multiple risk factors for coronary artery disease (CAD) as well as multiple cardiovascular risk factors. He was having shortness of breath and chest pain. Since being transferred to the unit, he has been asymptomatic. The case was discussed earlier today with his hospitalist and he was started on Plavix and the nifedipine was discontinued and switched to amlodipine. He will continue current medications. He is on beta nel, but I will change his simvastatin to atorvastatin in view of the amlodipine. He will have an echocardiogram tomorrow to assess his left ventricular systolic an diastolic function, then further recommendations will be given. I will continue to monitor him along with you, he appears to be stable. We will continue conservative management. 2. Probable congestive heart failure, [id number] and most likely diastolic in nature. We will continue current management and reassess his left ventricular ejection fraction (LVEF) on 03/21/2016, with an echocardiogram and then further recommendations will be given. 3. Hypertension. He will continue current medications. His losartan was discontinued in view of his underlying kidney disease as well as his hydrochlorothiazide. He is now on amlodipine, clonidine, hydralazine, and labetalol. He is also on terazosin. 4. Hyperlipidemia. On simvastatin and as mentioned above, it will be changed to atorvastatin. While in the hospital, I will check his lipid profile. 5. History of diabetes mellitus. This is being addressed. 6. Chronic kidney disease. This is also being addressed. 7. Anemia, probably related to his underlying chronic kidney disease. He does have a history of gastrointestinal (GI) bleeding, but no active bleeding noted in this hospitalization. He should be monitored closely while on aspirin and Plavix. He is on subcutaneous heparin for deep vein thrombosis (DVT) prophylaxis. 8. Urinary tract infection (UTI). This is being addressed. 9. Partial small bowel obstruction. This is also being addressed. It was a pleasure to participate in the care of Mr. Davin Snyder, for his underlying cardiac condition. I will continue to monitor him along with you while in the hospital and tomorrow, I will ask Dr. Valle to see him. Please do not hesitate to call if any questions. DEWAYNED
[2016-03-21 05:07] LABS: MEAN CORPUSCULAR HEMOGLOBIN 26.8 pg (27.0-33.0); MEAN CORPUSCULAR HGB CONC 31.7 g/dl (32.0-36.5); MEAN CORPUSCULAR VOLUME 84.6 fl (80.0-96.0); RED CELL DISTRIBUTION WIDTH 15.2 % (11.5-14.5); WHITE BLOOD COUNT 10.9 K/mm3 (4.0-10.0)
[2016-03-21 05:34] LABS: ALBUMIN 2.3 GM/DL (3.2-5.2); CALCIUM LEVEL 8.5 MG/DL (8.8-10.2); CREATININE FOR GFR 3.6 MG/DL (0.70-1.30); GLOMERULAR FILTRATION RATE 17.6 (>42); PHOSPHORUS LEVEL 4.3 MG/DL (2.5-4.9); POTASSIUM SERUM 4.3 MEQ/L (3.5-5.1)
[2016-03-21] MEDS: CIPROFLOXACIN 250 MG TAB PO SCH ×2 (06:06→17:00)
[2016-03-21] MEDS: ISOSORBIDE DIN (ISORDIL) 10 MG TAB PO SCH (06:07)
--- NOTE | 2016-03-21 06:15 | ECHO ---
DATE OF PROCEDURE: 03/20/2016 AGE: 75 GENDER: Male REFERRING PHYSICIAN: Dr. Gonzalez. HEIGHT: 73 inches. WEIGHT: 260 pounds. BODY SURFACE AREA: 2.4 sq m. INPATIENT: Intensive care unit (ICU) Room 3202. INDICATION: Chest pain. MEASUREMENTS: 2D MEASUREMENTS: RV - 4.2 cm LV- 4.9 cm Septum - 1.2 cm Posterior wall - 1.2 cm Aortic root - 3.3 cm LA - 3.6 cm LVEF - 65% DOPPLER MEASUREMENTS: AV - 1.9 m/s LVOT - 1.2 m/s LVOT Diameter - 2.0 cm MV-E: 100 A: 120 EA ratio 0.9 Early mitral deacceleration time 148 ms E-prime - 5.5 A-prime - 10.6 E/E prime ratio 18.2 PV - 1.1 m/s Pulmonary artery acceleration time 99 ms RVSP - 45 mmHg IVC - 1.6 cm COMMENTS: Normal sinus rhythm with first-degree AV block and right bundle branch block. Somewhat technically challenging study in light of the patient's body habitus but diagnostically useful information was still obtained. Left atrial size upper limits of normal. Normal left ventricular size. Right heart chambers were mildly dilated. LV wall thickness was upper limits of normal to mildly hypertrophied symmetrically. On real-time imaging from the parasternal and apical projections, wall motion was symmetrical and normal. Mildly thickened mitral annulus but normal leaflet thickness and excursion with no posterior systolic buckling. Three equal size aortic cusps with moderately thickened cusp edges but adequate cusp separation. Normal appearing aortic root diameter. No apparent intracardiac mass or pericardial effusion. Color flow Doppler study taken from the parasternal and apical projection showed mild posteriorly directed mitral and mild tricuspid but no apparent aortic insufficiency at this time. Guided continuous wave Doppler of his aortic valve showed a normal peak systolic velocity against LV outflow tract obstruction. Pulsed and continuous wave Doppler of his LV inflow tract taken from the apical four-chamber projection showed normal diastolic filling velocities against mitral stenosis. There was more prominent late diastolic/and atrial dependent filling pattern. The degree of LV diastolic dysfunction was confirmed using tissue Doppler of his mitral annulus. Current estimated mean left atrial pressure was at least mildly elevated. Pulsed and continuous wave Doppler of his pulmonary trunk showed a normal peak systolic velocity against RV outflow tract obstruction. His pulmonary artery acceleration time was abbreviated consistent with an elevated pulmonary vascular resistance. Guided continuous wave Doppler of his tricuspid valve allowed our estimation of his right ventricular systolic pressure (moderately increased). Normal IVC size and collapse against an elevated central venous pressure. CONCLUSIONS: Unable to detect a structural or functional cause for the patient's chest pain. Borderline concentric left ventricular hypertrophy with normal wall motion. Left atrial size upper limits of normal with Doppler evidence of an impairment of LV diastolic function and elevated mean left atrial pressure. Mildly dilated right heart chambers with Doppler evidence of moderate pulmonary hypertension. Normal IVC size and collapse against an elevated central venous pressure. Moderate aortic valvular sclerosis without apparent functional valvular abnormality. Mild mitral annular calcification with very mild posteriorly directed mitral insufficiency. Comparing the above test findings with those dated October 02, 2015, the left ventricle size, systolic function and diastolic function appears unchanged. Right heart chambers appear to be mildly increased in size along with the development of moderate pulmonary hypertension. Valvular findings were not significantly changed.
[2016-03-21] MEDS: HumaLOG INSULIN (NovoLOG) PER UNIT SC SCH ×4 (07:30→20:28)
[2016-03-21] MEDS: TIOTROPIUM INHALER/CAPSULE (SPIRIVA) INH SCH (07:56)
[2016-03-21] MEDS: SYMBICORT 160/4.5MCG INHALER 6GM INH SCH ×2 (07:57→19:53)
[2016-03-21] MEDS: ALBUTEROL SULFATE 2.5 MG/0.5 ML INH NEB SOLN INH SCH ×3 (07:57→20:00)
[2016-03-21] MEDS: ASPIRIN 81 MG ENTERIC TAB PO SCH (08:15)
[2016-03-21] MEDS: ATORVASTATIN 20 MG TAB PO SCH (08:15)
[2016-03-21] MEDS: MULTIVITAMINS/MINERALS THERAP 1 TAB PO SCH (08:16)
[2016-03-21] MEDS: CLOPIDOGREL 75 MG TAB PO SCH (08:16)
[2016-03-21] MEDS: LABETALOL 200 MG TAB PO SCH ×2 (08:16→20:27)
[2016-03-21] MEDS: cloNIDine 0.1 MG TAB PO SCH ×2 (08:16→20:25)
[2016-03-21] MEDS: **hydrALAZINE HCL** 25 MG TAB PO SCH (08:16)
[2016-03-21] MEDS: FERROUS SULFATE 325MG TAB PO SCH ×2 (08:16→20:25)
[2016-03-21] MEDS: VITAMIN D 1,000 INTERNATIONAL UNITS TABLET PO SCH (08:16)
[2016-03-21] MEDS: SENOKOT S TAB PO SCH ×2 (08:17→20:26)
[2016-03-21] MEDS: HEPARIN SOD (PORCINE) 5000 UNITS/ML VIAL SQ SCH ×2 (08:17→20:28)
[2016-03-21] MEDS: amLODIPine 5 MG TAB PO SCH (08:17)
[2016-03-21] MEDS: PANTOPRAZOLE 40MG TAB (PROTONIX) PO SCH (08:17)
--- NOTE | 2016-03-21 08:23 | ECGEPIP ---
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
[2016-03-21] MEDS: MIRALAX *UNIT DOSE* 17GM PACKET PO SCH (09:00)
[2016-03-21] MEDS ORDERED: FUROSEMIDE 40 MG/4 ML VIAL (J1940) IV ONE (10:00)
--- NOTE | 2016-03-21 10:44 | IPNPDOC ---
[facility] Cardiology Progress Note Date of Service/Time The patient was seen on 03/21/16 at 10:28. Cardiology Progress Note SUBJECTIVE: Mr Snyder was seen and examined at bedside this morning, he was sitting in bed at a 45 incline eating breakfast, did not seem in distress and was conversant. He did still describe some shortness of breath, but it seemed this was exertionally related. Denied chest pain or palpitations. He denied a history of cardiac catheterization, but did admit to sustaining a heart attack: "A very long time ago "". The patient states that he has never had or that he has never been told he has heart disease. OBJECTIVE: PHYSICAL EXAMINATION: VITAL SIGNS: Please see below. GENERAL APPEARANCE: 75-year-old male, , sitting in hospital bed at incline eating his breakfast, did not seem to be in distress. Conversant. HEENT: NCAT, nares patent bilaterally, EOMI, moist mucous membranes, tongue midline. LUNGS: Faint crackles appreciated and right lower lobe, otherwise CTA b/l, somewhat diminished air expansion and entry bilaterally, otherwise no rhonchi, rales appreciated. HEART: Normal S1, S2, slight +2 systolic murmur, otherwise no murmurs, gallops, rubs appreciated. ABDOMEN: soft, nondistended, nontender to palpitation, [id number], no organomegaly appreciated SKIN: Intact EXTREMITIES: +1 b/l LE edema, otherwise no clubbing or cyanosis appreciated. NEUROLOGIC: No focal deficits appreciated PSYCHIATRIC: Affect is appropriate LABORATORY WORK: Please see below. ASSESSMENT AND PLAN: The patient seems to be doing relatively well this morning, his heart rate has been in the 80s to 90s, blood pressure has been a bit elevated in the 150-170 systolic over 70 diastolic. His troponin has come down to .39 from 0.48, however his creatinine is still elevated at 3.60, the patient therefore is not advised to go for cardiac catheterization sense administration of dye would likely deteriorate his kidney function further and there is a good possibility he would end up on chronic dialysis therapy. Thus we will medically manage the patient, he is currently on aspirin and Plavix, would not make adjustments to these medications at this time. In regards to his elevated blood pressure, we will double his hydralazine dose to 50 mg 3 times a day. The patient did admit to having a bleeding stomach ulcer, but this was greater than 5 years ago, he states that he has" "" kidney issues for many, many years". His last known ejection fraction was 65 %. He was also started on Lipitor one day ago. The patient stated that even if his kidney function were improved, he would still not want to go to [place] for cardiac catheterization even if it meant saving his life. For now we will medically manage the patient. No further recommendations. Addendum MD Martita: Agree with note above. Patient would not consider angiogram and/or dialysis even if life saving. Will continue medical management. Vital Signs/I&O VS/I&O Vital Signs Date Time Temp Pulse Resp B/P Pulse Ox O2 Delivery O2 Flow Rate FiO2 03/21/16 07:30 Nasal Cannula 3.0 03/21/16 07:30 98.1 80 20 164/70 92 I&O- Last 24 Hours up to 6 AM 03/21/16 06:00 Intake Total 1550 ml Output Total 2050 ml Balance -500 ml Laboratory Data 24H LABS Laboratory Tests 2 03/20/16 11:35: Bedside Glucose (Misc Panel) 207H 03/20/16 12:18: Bedside Glucose (Misc Panel) 194H 03/20/16 16:53: Bedside Glucose (Misc Panel) 189H 03/20/16 20:12: Bedside Glucose (Misc Panel) 235H 03/21/16 04:41: Albumin 2.3L, Blood Urea Nitrogen 88H, Creatinine 3.60H, Sodium Level 140, Potassium Level 4.3, Chloride Level 102, Carbon Dioxide Level 30, Anion Gap 8, Calcium Level 8.5L, Triglycerides Level 240H, Cholesterol Level 106, HDL Cholesterol 38L, LDL Cholesterol 20.0, Cholesterol/HDL Ratio 2.789, Glomerular Filtration Rate 17.6L, Non-HDL Cholesterol (LDL + VLDL) 68, Phosphorus Level 4.3 CBC/BMP Laboratory Tests 03/21/16 04:41 Anion Gap 8, Red Blood Count 3.20 L, Mean Corpuscular Volume 84.6, Mean Corpuscular Hemoglobin 26.8 L, Mean Corpuscular Hemoglobin Concent 31.7 L, Red Cell Distribution Width 15.2 H FSBS Laboratory Tests Test 03/20/16 11:35 03/20/16 12:18 03/20/16 16:53 03/20/16 20:12 Range/Units Bedside Glucose (Misc Panel) 207 194 189 235 83-110 MG/DL Microbiology Microbiology 03/12/16 Gastrointestinal Tract Panel (PCR) - Final, Complete 03/20/16 MRSA Screen, Received Pending 03/12/16 Urine Culture - Final, Complete Enterococcus Faecalis GME ATTESTATION GME ATTESTATION My preceptor for this patient encounter was physically present in the building during the encounter and was fully available. As needed, all aspects of the patient interview, examination, medical decision making process, and medical care plan development were reviewed and approved by the preceptor. Preceptor is aware and concurs with the plan as stated in the body of this note and will attest to such by his/her cosignature. REBEL GRIFFIN DO Mar 21, 2016 10:44 Halima Valle MD Mar 23, 2016 11:19
--- NOTE | 2016-03-21 11:13 | IPNPDOC ---
Date/Time Seen The patient was seen on 03/21/16 at 11:03. Progress Note DATE OF ENCOUNTER: 03/21/2016 SUBJECTIVE: Patient was seen this morning at bedside. He was laying in bed comfortably. He reports that his breathing is stable. Denies any chest pain or increased shortness of breath this morning. Blood pressure was elevated this morning and medications have already been adjusted. White count appears to be trending down. Afebrile. Review of systems is positive for soreness in the abdomen. He is tolerating a regular diet, appetite is fair. Negative for nausea, vomiting, diarrhea, chest pain or pressure, increased shortness of breath, headache, lightheadedness, dizziness, fevers, chills. OBJECTIVE: Vital Signs Date Time Temp Pulse Resp B/P Pulse Ox O2 Delivery O2 Flow Rate FiO2 03/21/16 07:30 Nasal Cannula 3.0 03/21/16 07:30 98.1 80 20 164/70 92 I&O- Last 24 Hours up to 6 AM 03/21/16 06:00 Intake Total 1550 ml Output Total 2050 ml Balance -500 ml GENERAL: Awake and alert, in no acute distress HEENT: Normocephalic, atraumatic. Extraocular movements intact. Moist mucosa. NECK: Supple. Jugular veins are not significantly elevated. HEART: Normal S1, S2. Regular rate and rhythm. No murmurs appreciated. LUNGS: Diminished breath sounds with faint rales in the lower base. ABDOMEN: Abdomen is distended, but soft. Not significantly tender with palpation is morning. Bowel sounds are present. No rebound, guarding or rigidity. EXTREMITIES: No cyanosis or significant lower extremity edema. Positive pedal pulses bilaterally. NEUROLOGIC: No focal deficits. LABORATORY DATA: 03/21/16 04:41 Red Blood Count 3.20 L, Mean Corpuscular Volume 84.6, Mean Corpuscular Hemoglobin 26.8 L, Mean Corpuscular Hemoglobin Concent 31.7 L, Red Cell Distribution Width 15.2 H, Albumin 2.3L, Anion Gap 8, Calcium Level 8.5L, Triglycerides Level 240H, Cholesterol Level 106, HDL Cholesterol 38L, LDL Cholesterol 20.0, Cholesterol/HDL Ratio 2.789, Glomerular Filtration Rate 17.6L , Non-HDL Cholesterol (LDL + VLDL) 68, Phosphorus Level 4.3 MICROBIOLOGY: Blood culture shows no growth thus far. Urine positive for Enterococcus faecalis ASSESSMENT AND PLAN: Mr. Snyder is a 75 year old male with past medical history significant for chronic kidney disease stage III, diastolic heart failure, chronic lung disease from occupational exposure with 3 L home O2, hypertension, gout, coronary artery disease with history of ND, diabetes mellitus type 2, hyperlipidemia, BPH, history of GI bleed and gastritis and sleep apnea not on CPAP who presented due to hypoglycemia, found to be in acute on chronic renal failure with partial small bowel obstruction. 1. Acute on chronic kidney disease stage III. Creatinine appears to be slowly improving. It appears that his GI issues is also slowly improving. His electrolytes are stable at this point in time and there is no emergent need for hemodialysis. He will be given another dose of 40 mg of Lasix x 1. Volume status will continue to be monitored. 2. Elevated troponin. His troponins trended downwards. Cardiology is currently on board and medically managing the patient. Echocardiogram showed EF of 65%, left ventricular hypertrophy, moderate pulmonary hypertension, no new valvular changes. 3. Chronic diastolic heart failure. He takes Lasix and hydrochlorothiazide at home, both of which have been held and admission due to acute kidney injury. He will be given another dose of Lasix today. We will reassess his volume status daily. 4. Ileus/partial small bowel obstruction. CT performed on 03/15 does not show any obstruction. He is tolerating a regular diet and this appears to be slowly improving. Bowel habits are not regular yet. 5. Urinary tract infection with culture positive for Enterococcus faecalis. Patient is on ciprofloxacin, initiated on 03/18. 6. Hypertension. Blood pressure suboptimal. He was initiated on Isordil 3 times daily. He remains on hydralazine 3 times a day, amlodipine, clonidine, labetalol , and terazosin. Hydrochlorothiazide, Lasix and losartan held on admission secondary to acute kidney injury. Continue to monitor blood pressure. 7. Anemia in chronic kidney disease. Hemoglobin is currently stable. GME ATTESTATION GME ATTESTATION My preceptor for this patient encounter was physically present in the building during the encounter and was fully available. As needed, all aspects of the patient interview, examination, medical decision making process, and medical care plan development were reviewed and approved by the preceptor. Preceptor is aware and concurs with the plan as stated in the body of this note and will attest to such by his/her cosignature. ATTENDING NOTE Pt examined at bedside this AM. Cr slowly trending down. Will give another dose of Lasix today. I agree with above assessment and recommendations. JAKOB ARRIAZA DO Mar 21, 2016 11:13 INGRID MAY MD Mar 21, 2016 21:38
[2016-03-21] MEDS: ISOSORBIDE DIN. (ISORDIL) 20 MG TAB PO SCH ×2 (12:04→16:09)
[2016-03-21] MEDS: **hydrALAZINE** 50 MG TAB PO SCH ×2 (16:09→20:27)
--- NOTE | 2016-03-21 16:31 | REP ---
Abdominal series: Five views: History: Question small bowel obstruction. Findings: Supine view of the chest shows EKG monitoring electrodes. No infiltrate is seen. Heart size is mildly prominent. Supine and cross-table lateral views of the abdomen show no evidence of free air. There is massive gaseous distension of the stomach. There are clips in the right upper quadrant and vascular calcification is noted in the left upper quadrant. There is colonic distension noted in the central and lower abdomen. No definite small bowel dilation is seen. Cross-table lateral view shows a few colonic air fluid levels. No mass or organomegaly is seen. Psoas margins are symmetric. Impression: Massive gastric distension. Some colonic air fluid levels. No evidence of free air. Signed by Naresh Madden MD 03/22/2016 08:26 A
--- NOTE | 2016-03-21 19:27 | IPN ---
DATE: 03/21/2016 The patient is seen and examined. Reported passing gas. No abdominal pain. No nausea, vomiting. Continued to have poor oral intake. Denies any chest pain, pressure or discomfort overnight. Denies any fevers or chills. VITAL SIGNS: Temperature 97.6, pulse 82, respirations 19, blood pressure 149/66, pulse oximetry 96% on 3 liters nasal cannula. LABORATORY DATA: WBC 10.9, hemoglobin and hematocrit 8.6/27, platelets 276. Chemistry: Sodium 140, potassium 4.3, chloride 102, bicarbonate 30, BUN 88, creatinine 3.6. PHYSICAL EXAMINATION: GENERAL: The patient is alert and oriented times three. In no acute distress . Comfortable but fatigued. HEENT: Normocephalic, atraumatic. Moist mucous membranes. PULMONARY: Mild crackles in bilateral bases. Diminished breath sounds in bilateral bases. CARDIAC: Regular rate and rhythm. Normal S1, S2. ABDOMEN: Obese, soft, nontender. Positive bowel sounds. Mild distention. EXTREMITIES: No edema in bilateral lower extremities. 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 The patient was admitted with acute on chronic renal failure secondary to ileus, nausea and vomiting. 1. Ileus. Tolerating a diet but with still abdominal distention, passing gas. The patient had a bowel movement a few days ago. Continue gastrointestinal regimen. X-rays appreciated. Appreciate surgical assistance from Dr. Canela. Continue diet. 2. Acute on chronic renal failure. Baseline creatinine around 2. Currently slightly improved. Likely secondary to prerenal azotemia in the presence of diarrhea, nausea, and vomiting. Ultrasound of the kidneys appreciated. Avoid nephrotoxic agents. Appreciate nephrology assistance for consultation. Continue to monitor. 3. Diastolic congestive heart failure (CHF). Compensated. Strict input and output, daily weights. 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 4. Chest pain, unstable angina with troponin leak. Possible etiology includes fluid overload, worsening kidney function versus demand ischemia versus unstable angina. Cardiology consulted. Case discussed with Dr. Subramanian and Dr. Valle. Followup echocardiogram. Aspirin and Plavix. Beta blockers and statin. ARB has been on hold given kidney function. EKG is appreciated. Serial cardiac enzymes peaked. 5. Type 2 diabetes. Continue insulin as per protocol. Followup fingersticks. 6. Occupational lung disease with chronic hypoxia. Oxygen supplementation. Continue Symbicort and ipratropium and albuterol. Continue to follow. 7. Chronic anemia. Hemoglobin and hematocrit appreciated and currently stable. Continue to follow. 8. Obesity complicating care. 9. Obstructive sleep apnea. Not on CPAP. Obstructive sleep apnea protocol. 10. Gait instability. Continue with physical therapy (PT). 11. Coronary arterial disease. Aspirin, Plavix, beta nel and statin. 12. Hypertension. Blood pressure medication has been adjusted. Isosorbide dinitrate has been increased. Adjust blood pressure medication as needed. 13. Urinary tract infection (UTI). Continue antibiotic as ordered. 14. Benign prostatic hypertrophy (BPH) . Continue home medications. 15. Deep vein thrombosis (DVT) prophylaxis. Heparin subcutaneously. DISPOSITION PLANNING: The patient is to continue physical therapy (PT), possible placement. Echo is appreciated. The patient with multiple comorbidities. Poor long-term prognosis.
[2016-03-21] MEDS: TERAZOSIN 5 MG CAP PO SCH (20:27)
[2016-03-21] MEDS: hydrOXYzine 50 MG TAB PO SCH (20:28)
[2016-03-22] MEDS: ALBUTEROL SULFATE 2.5 MG/0.5 ML INH NEB SOLN NEB PRN (02:59)
[2016-03-22 06:00] VITALS: BP 140/62
[2016-03-22] MEDS: CIPROFLOXACIN 250 MG TAB PO SCH ×2 (06:15→18:00)
[2016-03-22] MEDS: ISOSORBIDE DIN. (ISORDIL) 20 MG TAB PO SCH ×3 (06:15→18:00)
[2016-03-22 07:12] LABS: MEAN CORPUSCULAR HEMOGLOBIN 27.6 pg (27.0-33.0); MEAN CORPUSCULAR HGB CONC 32.2 g/dl (32.0-36.5); MEAN CORPUSCULAR VOLUME 85.7 fl (80.0-96.0); RED CELL DISTRIBUTION WIDTH 15.2 % (11.5-14.5); WHITE BLOOD COUNT 11.1 K/mm3 (4.0-10.0)
[2016-03-22 07:16] LABS: ALBUMIN 2.2 GM/DL (3.2-5.2); CALCIUM LEVEL 9.2 MG/DL (8.8-10.2); CREATININE FOR GFR 3.55 MG/DL (0.70-1.30); GLOMERULAR FILTRATION RATE 17.9 (>42); PHOSPHORUS LEVEL 4.5 MG/DL (2.5-4.9); POTASSIUM SERUM 4.4 MEQ/L (3.5-5.1)
[2016-03-22] MEDS: ALBUTEROL SULFATE 2.5 MG/0.5 ML INH NEB SOLN INH SCH ×3 (08:00→16:38)
[2016-03-22] MEDS: TIOTROPIUM INHALER/CAPSULE (SPIRIVA) INH SCH (08:34)
[2016-03-22] MEDS: SYMBICORT 160/4.5MCG INHALER 6GM INH SCH ×2 (08:34→16:38)
[2016-03-22] MEDS: MIRALAX *UNIT DOSE* 17GM PACKET PO SCH (08:54)
[2016-03-22] MEDS: CLOPIDOGREL 75 MG TAB PO SCH (08:55)
[2016-03-22] MEDS: FERROUS SULFATE 325MG TAB PO SCH ×2 (08:55→20:30)
[2016-03-22] MEDS: SENOKOT S TAB PO SCH ×2 (08:55→20:30)
[2016-03-22] MEDS: MULTIVITAMINS/MINERALS THERAP 1 TAB PO SCH (08:55)
[2016-03-22] MEDS: ATORVASTATIN 20 MG TAB PO SCH (08:55)
[2016-03-22] MEDS: VITAMIN D 1,000 INTERNATIONAL UNITS TABLET PO SCH (08:55)
[2016-03-22] MEDS: HumaLOG INSULIN (NovoLOG) PER UNIT SC SCH ×4 (08:55→20:24)
[2016-03-22] MEDS: PANTOPRAZOLE 40MG TAB (PROTONIX) PO SCH (08:56)
[2016-03-22] MEDS: LABETALOL 200 MG TAB PO SCH ×2 (08:56→20:30)
[2016-03-22] MEDS: amLODIPine 5 MG TAB PO SCH (08:56)
[2016-03-22] MEDS: cloNIDine 0.1 MG TAB PO SCH ×2 (08:56→20:29)
[2016-03-22] MEDS: ASPIRIN 81 MG ENTERIC TAB PO SCH (08:56)
[2016-03-22] MEDS: **hydrALAZINE** 50 MG TAB PO SCH ×3 (08:56→20:30)
[2016-03-22] MEDS: HEPARIN SOD (PORCINE) 5000 UNITS/ML VIAL SQ SCH ×2 (08:57→20:31)
--- NOTE | 2016-03-22 09:44 | IPNPDOC ---
[facility] Cardiology Progress Note Date of Service/Time The patient was seen on 03/22/16 at 09:25. Cardiology Progress Note SUBJECTIVE: Mr Snyder was seen and examined at bedside this morning, he seems to be doing better than yesterday and states that his SOB is improved, he denies any chest discomfort, pressure or pain nor palpitations. OBJECTIVE: PHYSICAL EXAMINATION: VITAL SIGNS: Please see below. GENERAL APPEARANCE: laying supine in bed at a slight 30 degree incline, non- labored, appears in no acute distress, conversant HEENT: NCAT, nares patent b/l, EOMI, moist mucus membranes LUNGS: diminished breath sounds on left lower base, otherwise CTA in other lung ramirez, no wheezing, rhonchi or rales appreciated HEART: normal s1 and s2, no murmur, rubs or gallops appreciated. Rate in the 80' s. ABDOMEN: soft, obese, NABSx4, non-distended, non-tender, no organomegaly appreciated SKIN: intact EXTREMITIES: no swelling, cyanosis or clubbing appreciated NEUROLOGICAL: no focal deficits appreciated PSYCHIATRIC: normal affect LABORATORY WORK: Please see below. ASSESSMENT AND PLAN: On physical exam, it appears Mr Snyder has some diminished breath sounds over the left lower lobe, will put in order for CXR but suspect this is probably secondary to some atelectasis. He did admit to having a BM this morning and states that it made him feel better. Since doubling his hydralazine one day ago , his blood pressure seems to be doing better, hovering around 140/60's. He is still requiring 2 L of O2 via NC, but states his SOB is much better from one day prior when we seen him. The patient again states that even if it meant saving his life, he would not want to go to [place] for cardiac cath., if a cardiac event should occur, due to the advanced stage of his kidney disease when questioned about dialysis he states that he would not want to begin dialysis treatments. However when questioned about resuscitation status, he wishes to remain FULL code. Would suggest this be discussed/re-visited with him again, especially in light of his poor conditioning. Would recommend incentive spirometry and instructed the patient to use this daily. His troponin seems to be trending down and so would suggest that the patient did not sustain an IL but in-fact this probably was angina instead. No further recommendations at this time. Vital Signs/I&O VS/I&O Vital Signs Date Time Temp Pulse Resp B/P Pulse Ox O2 Delivery O2 Flow Rate FiO2 03/22/16 08:56 140/62 03/22/16 08:56 92 03/22/16 06:00 96.7 18 96 Nasal Cannula 3.0 I&O- Last 24 Hours up to 6 AM 03/22/16 06:00 Intake Total 1010 ml Output Total 1750 ml Balance -740 ml Laboratory Data 24H LABS Laboratory Tests 2 03/21/16 11:55: Bedside Glucose (Misc Panel) 210H 03/21/16 16:56: Bedside Glucose (Misc Panel) 211H 03/21/16 20:13: Bedside Glucose (Misc Panel) 220H 03/22/16 06:01: Albumin 2.2L, Blood Urea Nitrogen 88H, Creatinine 3.55H, Sodium Level 140, Potassium Level 4.4, Chloride Level 101, Carbon Dioxide Level 30, Anion Gap 9, Calcium Level 9.2, Glomerular Filtration Rate 17.9L, Phosphorus Level 4.5 CBC/BMP Laboratory Tests 03/22/16 06:01 Anion Gap 9, Red Blood Count 3.04 L, Mean Corpuscular Volume 85.7, Mean Corpuscular Hemoglobin 27.6, Mean Corpuscular Hemoglobin Concent 32.2, Red Cell Distribution Width 15.2 H FSBS Laboratory Tests Test 03/21/16 11:55 03/21/16 16:56 03/21/16 20:13 Range/Units Bedside Glucose (Misc Panel) 210 211 220 83-110 MG/DL Microbiology Microbiology 03/12/16 Gastrointestinal Tract Panel (PCR) - Final, Complete 03/20/16 MRSA Screen - Final, Complete 03/12/16 Urine Culture - Final, Complete Enterococcus Faecalis GME ATTESTATION GME ATTESTATION My preceptor for this patient encounter was physically present in the building during the encounter and was fully available. As needed, all aspects of the patient interview, examination, medical decision making process, and medical care plan development were reviewed and approved by the preceptor. Preceptor is aware and concurs with the plan as stated in the body of this note and will attest to such by his/her cosignature. REBEL GRIFFIN DO Mar 22, 2016 09:44
--- NOTE | 2016-03-22 16:54 | IPNPDOC ---
Date/Time Seen The patient was seen on 03/22/16 at 16:35. Progress Note DATE OF ENCOUNTER: 03/22/2016 SUBJECTIVE: Patient was seen this morning at bedside. He was laying in bed comfortably. No acute overnight events. He points that he is a little tired. He denies any shortness of breath. No chest pain or chest pressure. He hasn't really been eating much and just doesn't feel like he has an appetite. Review of systems is positive for abdominal distention. He has been on a regular diet for several days now and has not had a bowel movement. Negative for nausea, vomiting, abdominal pain, diarrhea, chest pain or pressure, shortness of breath, headache, dizziness, fevers, chills. He is afebrile. White count is mildly elevated. OBJECTIVE: Vital Signs Date Time Temp Pulse Resp B/P Pulse Ox O2 Delivery O2 Flow Rate FiO2 03/22/16 16:30 173/79 03/22/16 09:15 Nasal Cannula 3.0 03/22/16 08:56 92 03/22/16 06:00 96.7 18 96 I&O- Last 24 Hours up to 6 AM 03/22/16 06:00 Intake Total 1010 ml Output Total 1750 ml Balance -740 ml GENERAL: Awake and alert, in no acute distress HEENT: Normocephalic, atraumatic. Extraocular movements intact. Moist mucosa. NECK: Supple. Jugular veins are not significantly elevated. HEART: Normal S1, S2. Regular rate and rhythm. No murmurs appreciated. LUNGS: Diminished breath sounds with faint rales in the lower base. ABDOMEN: Abdomen is distended, but soft. Not significantly tender with palpation this morning. Bowel sounds are present. No rebound, guarding or rigidity. EXTREMITIES: No cyanosis. Trace lower extremity edema. Positive pedal pulses bilaterally. NEUROLOGIC: No focal deficits. LABORATORY DATA: 03/22/16 06:01 Anion Gap 9, Red Blood Count 3.04 L, Mean Corpuscular Volume 85.7, Mean Corpuscular Hemoglobin 27.6, Mean Corpuscular Hemoglobin Concent 32.2, Red Cell Distribution Width 15.2 H , Albumin 2.2L, Calcium Level 9.2, Glomerular Filtration Rate 17.9L, Phosphorus Level 4.5 MICROBIOLOGY: Blood culture shows no growth thus far. Urine positive for Enterococcus faecalis. IMAGING: Patient had abdominal x-ray done on 03/21 which showed significant gastric distention with colonic air-fluid levels. ASSESSMENT AND PLAN: Mr. 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 1. Acute on chronic kidney disease stage III. Creatinine appears to be slowly improving, he has a baseline of about 2.0. Abdominal x-ray done yesterday showed significant gastric distention. This is being addressed by surgery and the primary team. At this point in time his volume status is stable and he will not receive any more Lasix. Electrolytes are stable and no signs of uremia. No acute indication for hemodialysis. 2. Chronic diastolic heart failure. He takes Lasix and hydrochlorothiazide at home, both of which have been held and admission due to acute kidney injury. No further diuretics at this time. We will reassess his volume status daily. 3. Ileus/partial small bowel obstruction. CT performed on 03/15 does not show any obstruction however abdominal x-ray done yesterday shows significant gastric distention with colonic air-fluid levels. Surgery to evaluate the patient. 4. Hypertension. He is on Isordil 3 times daily, hydralazine 3 times a day, amlodipine daily, clonidine twice daily, labetalol twice daily, and terazosin daily. Hydrochlorothiazide, Lasix and losartan were held on admission secondary to acute kidney injury. Continue to monitor blood pressure. 5. Anemia in chronic kidney disease. Hemoglobin is currently 8.4. No signs of acute bleeding. 6. Urinary tract infection with culture positive for Enterococcus faecalis. Patient is on ciprofloxacin, initiated on 03/18. 7. Elevated troponin. His troponins did trend downwards. Cardiology was consulted and provided recommendations. GME ATTESTATION GME ATTESTATION My preceptor for this patient encounter was physically present in the building during the encounter and was fully available. As needed, all aspects of the patient interview, examination, medical decision making process, and medical care plan development were reviewed and approved by the preceptor. Preceptor is aware and concurs with the plan as stated in the body of this note and will attest to such by his/her cosignature. ATTENDING NOTE Nephrology : Pt was examined this AM. X ray showed gastric distention. No diuretic today. Renal function slowly improving. Rest of assessment as per resident's note. JAKOB ARRIAZA DO Mar 22, 2016 16:54 INGRID MAY MD Mar 22, 2016 20:10
[2016-03-22] MEDS: hydrOXYzine 50 MG TAB PO SCH (20:30)
[2016-03-22] MEDS: TERAZOSIN 5 MG CAP PO SCH (20:30)
--- NOTE | 2016-03-22 21:06 | IPN ---
DATE: 03/22/2016 The patient is seen and examined. No acute events overnight. Denies any chest pain, pressure, discomfort. Denies any fevers or chills. Had a bowel movement today that is large. Denies any nausea or vomiting. VITAL SIGNS: Temperature 96.7, pulse 92, respirations 18, blood pressure 140/62, pulse oximetry 96% on 3 liters. LABORATORY DATA: WBC 11.1, hemoglobin and hematocrit 8.2/26, platelets 273. Chemistry: Sodium 140, potassium 4.4, chloride 101, bicarbonate 30, BUN 88, creatinine 3.55. PHYSICAL EXAMINATION: GENERAL: The patient is alert and oriented times three. In no acute distress . Comfortable but fatigued. HEENT: Normocephalic, atraumatic. Moist mucous membranes. PULMONARY: Mild rhonchi in bilateral bases. Diminished breath sounds bilaterally. CARDIAC: Regular rate and rhythm. Distant heart sounds. Normal S1, S2. ABDOMEN: Obese, soft, nontender. Positive bowel sounds. Mild distention but improved from yesterday. EXTREMITIES: No edema in bilateral lower extremities. 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 The patient was admitted with acute on chronic renal failure secondary to ileus with nausea and vomiting. 1. Ileus. Currently, the patient is tolerating a diet but still having abdominal distention, passing gas, having bowel movements. GI regimen, x-rays appreciated. Appreciate Dr. Canela's assistance. Continue diet. 2. Acute on chronic renal failure. Baseline creatinine is 2. Currently slightly improved. Likely secondary to prerenal azotemia in the presence of diarrhea, nausea, and vomiting. Ultrasound of the kidneys appreciated. Avoid nephrotoxic agents. Appreciate nephrology assistance. We will continue to monitor. 3. Diastolic congestive heart failure (CHF). Compensated. Strict input and output, daily weights. Diuretics as per nephrology. 4. Chest pain, unstable angina with troponin leak. Possible etiology includes fluid overload, worsening kidney function, demand ischemia versus unstable angina. Cardiology consulted. Case discussed with Dr. Subramanian and Dr. Valle. Echocardiogram appreciated. Aspirin and Plavix. Beta blockers and statin. ARB has been on hold given kidney function. EKG is appreciated. Serial cardiac enzymes. 5. Type 2 diabetes. Continue insulin as per protocol. Followup fingersticks. 6. Occupational lung disease with chronic hypoxia. Oxygen supplementation. Continue Symbicort and ipratropium and albuterol. Continue to follow. 7. Chronic anemia. Hemoglobin and hematocrit appreciated and currently stable. 8. Obesity complicating care. 9. Obstructive sleep apnea. Not on CPAP. Obstructive sleep apnea protocol. 10. Gait instability. Continue with physical therapy (PT). 11. Coronary arterial disease. Aspirin, Plavix, beta nel and statin. 12. Hypertension. Continue blood pressure medication. Isosorbide dinitrate has been added to the regimen. Continue to monitor. 13. Urinary tract infection (UTI). Continue antibiotic as ordered. 14. Benign prostatic hypertrophy (BPH) . Continue home medications. 15. Deep vein thrombosis (DVT) prophylaxis. Heparin subcutaneously. DISPOSITION PLANNING: Continue physical therapy (PT), pending placement. Multiple comorbidities. Poor long-term prognosis.
[2016-03-22 22:00] VITALS: BP 160/75
[2016-03-23] MEDS: CIPROFLOXACIN 250 MG TAB PO SCH ×2 (05:20→17:54)
[2016-03-23] MEDS: ISOSORBIDE DIN. (ISORDIL) 20 MG TAB PO SCH ×3 (05:21→17:55)
[2016-03-23 06:00] VITALS: BP 152/76
[2016-03-23 06:54] LABS: ALBUMIN 2.3 GM/DL (3.2-5.2); CALCIUM LEVEL 9.5 MG/DL (8.8-10.2); CREATININE FOR GFR 3.48 MG/DL (0.70-1.30); GLOMERULAR FILTRATION RATE 18.3 (>42); PHOSPHORUS LEVEL 4.9 MG/DL (2.5-4.9); POTASSIUM SERUM 4.6 MEQ/L (3.5-5.1)
[2016-03-23 07:08] LABS: MEAN CORPUSCULAR HEMOGLOBIN 27.1 pg (27.0-33.0); MEAN CORPUSCULAR HGB CONC 31.4 g/dl (32.0-36.5); MEAN CORPUSCULAR VOLUME 86.3 fl (80.0-96.0); RED CELL DISTRIBUTION WIDTH 15.2 % (11.5-14.5); WHITE BLOOD COUNT 10.3 K/mm3 (4.0-10.0)
[2016-03-23] MEDS: SYMBICORT 160/4.5MCG INHALER 6GM INH SCH ×2 (07:24→19:58)
[2016-03-23] MEDS: TIOTROPIUM INHALER/CAPSULE (SPIRIVA) INH SCH (07:25)
[2016-03-23] MEDS: HumaLOG INSULIN (NovoLOG) PER UNIT SC SCH ×4 (07:30→21:00)
[2016-03-23] MEDS: ALBUTEROL SULFATE 2.5 MG/0.5 ML INH NEB SOLN INH SCH ×3 (08:00→19:58)
[2016-03-23] MEDS: **hydrALAZINE** 50 MG TAB PO SCH ×3 (08:11→21:54)
[2016-03-23] MEDS: cloNIDine 0.1 MG TAB PO SCH ×2 (08:11→21:55)
[2016-03-23] MEDS: CLOPIDOGREL 75 MG TAB PO SCH (08:11)
[2016-03-23] MEDS: PANTOPRAZOLE 40MG TAB (PROTONIX) PO SCH (08:11)
[2016-03-23] MEDS: ATORVASTATIN 20 MG TAB PO SCH (08:11)
[2016-03-23] MEDS: FERROUS SULFATE 325MG TAB PO SCH ×2 (08:11→21:55)
[2016-03-23] MEDS: ASPIRIN 81 MG ENTERIC TAB PO SCH (08:11)
[2016-03-23] MEDS: LABETALOL 200 MG TAB PO SCH ×2 (08:11→21:55)
[2016-03-23] MEDS: SENOKOT S TAB PO SCH ×2 (08:12→21:54)
[2016-03-23] MEDS: HEPARIN SOD (PORCINE) 5000 UNITS/ML VIAL SQ SCH ×2 (08:12→21:56)
[2016-03-23] MEDS: amLODIPine 5 MG TAB PO SCH (08:12)
[2016-03-23] MEDS: VITAMIN D 1,000 INTERNATIONAL UNITS TABLET PO SCH (08:12)
[2016-03-23] MEDS: MIRALAX *UNIT DOSE* 17GM PACKET PO SCH (08:12)
[2016-03-23] MEDS: MULTIVITAMINS/MINERALS THERAP 1 TAB PO SCH (08:12)
[2016-03-23] MEDS: NS 0.45% 1,000 ML IV SCH (10:20)
[2016-03-23] MEDS: DRONABINOL 2.5 MG CAP (MARINOL) PO SCH ×3 (12:43→21:55)
[2016-03-23 14:00] VITALS: BP 156/72
--- NOTE | 2016-03-23 14:15 | IPNPDOC ---
Date/Time Seen The patient was seen on 03/23/16 at 13:55. Progress Note DATE OF ENCOUNTER: 03/23/2016 SUBJECTIVE: Patient was seen this morning at bedside. He was laying in bed comfortably. No acute overnight events. He reports that he does not have a good appetite. He barely ate his breakfast and has had overall poor oral intake. He states that his mouth feels really dry and makes swallowing difficult. He states that his abdomen feels "sore." He had 2 bowel movements yesterday. Otherwise that, he does not have any other complaints. Review of systems is negative for nausea, vomiting, diarrhea, chest pain or pressure, increased shortness of breath, headache, dizziness, fevers, chills. He is afebrile and white count has trended down. OBJECTIVE: Vital Signs Date Time Temp Pulse Resp B/P Pulse Ox O2 Delivery O2 Flow Rate FiO2 03/23/16 12:43 198/86 03/23/16 09:00 Nasal Cannula 3.0 03/23/16 08:12 83 03/23/16 06:00 96.8 20 96 I&O- Last 24 Hours up to 6 AM 03/23/16 06:00 Intake Total 1180 ml Output Total 700 ml Balance 480 ml GENERAL: Awake and alert, in no acute distress HEENT: Normocephalic, atraumatic. Extraocular movements intact. Dry mucosa. NECK: Supple. Jugular veins are not elevated. HEART: Normal S1, S2. Regular rate and rhythm. No murmurs appreciated. LUNGS: Diminished breath sounds. No rhonchi or wheezing appreciated. ABDOMEN: Abdomen is distended, but soft. Mild diffuse tenderness to deep palpation. Bowel sounds are present. No rebound, guarding or rigidity. EXTREMITIES: No cyanosis. No significant lower extremity edema. Positive pedal pulses bilaterally. NEUROLOGIC: No focal deficits. LABORATORY DATA: 03/23/16 06:19 Red Blood Count 3.07 L, Mean Corpuscular Volume 86.3, Mean Corpuscular Hemoglobin 27.1, Mean Corpuscular Hemoglobin Concent 31.4 L, Red Cell Distribution Width 15.2 H, Albumin 2.3L, Anion Gap 7L, Calcium Level 9.5, Glomerular Filtration Rate 18.3L, Phosphorus Level 4.9 MICROBIOLOGY: Blood culture shows no growth thus far. Urine positive for Enterococcus faecalis. IMAGING: Patient had abdominal x-ray done on 03/21 which showed significant gastric distention with colonic air-fluid levels. ASSESSMENT AND PLAN: Mr. Snyder is a 75 year old male with past medical history significant for chronic kidney disease stage III, diastolic heart failure, chronic lung disease from occupational exposure with 3 L home O2, hypertension, gout, coronary artery disease with history of [place], diabetes mellitus type 2, hyperlipidemia, BPH, history of GI bleed and gastritis and sleep apnea not on CPAP who presented due to hypoglycemia, found to be in acute on chronic renal failure with partial small bowel obstruction. 1. Acute on chronic kidney disease stage III. Creatinine continues to improve very slowly. Baseline is about 2.0. Abdominal x-ray done on 03/21 showed significant gastric distention. It is unclear if this is secondary to a GI issue versus his breathing. This has been discussed with primary team to assess if further consults are needed. At this time, patient appears to be dry and has poor oral intake. He is being initiated on normal saline at a rate of 60 mL/h. Volume status should be monitored closely. 2. Chronic diastolic heart failure. He takes Lasix and hydrochlorothiazide at home, both of which have been held and admission due to acute kidney injury. He is on the dry side and will be given gentle fluids. 3. Gastric distention status post ileus/partial small bowel obstruction. The reason for his gastric distention is unclear. This needs to be looked into more closely. He may require an EGD given his poor oral intake. 4. Hypertension. Blood pressure is decently controlled with systolic in the 150s. He is on Isordil 3 times daily, hydralazine 3 times a day, amlodipine daily, clonidine twice daily, labetalol twice daily, and terazosin daily. Continue with current meds. Hydrochlorothiazide, Lasix and losartan were held on admission secondary to acute kidney injury. 5. Anemia in chronic kidney disease. Hemoglobin is currently 8.3. No signs of acute bleeding. He is on ferrous sulfate. 6. Urinary tract infection with culture positive for Enterococcus faecalis. Patient is on ciprofloxacin. GME ATTESTATION GME ATTESTATION My preceptor for this patient encounter was physically present in the building during the encounter and was fully available. As needed, all aspects of the patient interview, examination, medical decision making process, and medical care plan development were reviewed and approved by the preceptor. Preceptor is aware and concurs with the plan as stated in the body of this note and will attest to such by his/her cosignature. ATTENDING NOTE Nephrology: Pt with poor PO intake, dry mucous membranes on exam and persistent abdominal distention. Renal function almost same as yesterday.Start gentle IV hydration. Plan of care discussed with the hospitalist team. JAKOB ARRIAZA DO Mar 23, 2016 14:15 INGRID MAY MD Mar 24, 2016 12:17
[2016-03-23 14:33] LABS: PERCENT SATURATION 17.5 % (19.7-37.4)
[2016-03-23 17:59] VITALS: BP 185/76
[2016-03-23 18:43] VITALS: BP 158/62
[2016-03-23] MEDS: hydrOXYzine 50 MG TAB PO SCH (21:55)
[2016-03-23] MEDS: TERAZOSIN 5 MG CAP PO SCH (21:55)
[2016-03-23 22:00] VITALS: BP 168/72
[2016-03-24] MEDS: NS 0.45% 1,000 ML IV SCH ×2 (01:52→17:52)
[2016-03-24 06:00] VITALS: BP 158/80
[2016-03-24] MEDS: CIPROFLOXACIN 250 MG TAB PO SCH ×2 (06:04→17:52)
[2016-03-24] MEDS: ISOSORBIDE DIN. (ISORDIL) 20 MG TAB PO SCH ×3 (06:04→16:46)
[2016-03-24 06:51] LABS: MEAN CORPUSCULAR HEMOGLOBIN 27.3 pg (27.0-33.0); MEAN CORPUSCULAR HGB CONC 31.6 g/dl (32.0-36.5); MEAN CORPUSCULAR VOLUME 86.4 fl (80.0-96.0); RED CELL DISTRIBUTION WIDTH 15.3 % (11.5-14.5); WHITE BLOOD COUNT 9.9 K/mm3 (4.0-10.0)
[2016-03-24 06:56] LABS: ALBUMIN 2.3 GM/DL (3.2-5.2); CREATININE FOR GFR 3.45 MG/DL (0.70-1.30); GLOMERULAR FILTRATION RATE 18.5 (>42); PHOSPHORUS LEVEL 4.6 MG/DL (2.5-4.9); POTASSIUM SERUM 4.9 MEQ/L (3.5-5.1)
[2016-03-24] MEDS: TIOTROPIUM INHALER/CAPSULE (SPIRIVA) INH SCH (07:19)
[2016-03-24] MEDS: ALBUTEROL SULFATE 2.5 MG/0.5 ML INH NEB SOLN INH SCH ×3 (07:20→19:56)
[2016-03-24] MEDS: SYMBICORT 160/4.5MCG INHALER 6GM INH SCH ×2 (07:20→19:54)
[2016-03-24] MEDS: amLODIPine 5 MG TAB PO SCH (08:19)
[2016-03-24] MEDS: CLOPIDOGREL 75 MG TAB PO SCH (08:19)
[2016-03-24] MEDS: LABETALOL 200 MG TAB PO SCH ×2 (08:19→20:36)
[2016-03-24] MEDS: MULTIVITAMINS/MINERALS THERAP 1 TAB PO SCH (08:19)
[2016-03-24] MEDS: FERROUS SULFATE 325MG TAB PO SCH ×2 (08:19→20:34)
[2016-03-24] MEDS: PANTOPRAZOLE 40MG TAB (PROTONIX) PO SCH (08:19)
[2016-03-24] MEDS: HEPARIN SOD (PORCINE) 5000 UNITS/ML VIAL SQ SCH ×2 (08:19→20:36)
[2016-03-24] MEDS: VITAMIN D 1,000 INTERNATIONAL UNITS TABLET PO SCH (08:20)
[2016-03-24] MEDS: SENOKOT S TAB PO SCH ×2 (08:20→20:36)
[2016-03-24] MEDS: ATORVASTATIN 20 MG TAB PO SCH (08:20)
[2016-03-24] MEDS: cloNIDine 0.1 MG TAB PO SCH ×2 (08:20→20:35)
[2016-03-24] MEDS: DRONABINOL 2.5 MG CAP (MARINOL) PO SCH ×3 (08:20→20:34)
[2016-03-24] MEDS: ASPIRIN 81 MG ENTERIC TAB PO SCH (08:20)
[2016-03-24] MEDS: **hydrALAZINE** 50 MG TAB PO SCH ×3 (08:20→20:35)
[2016-03-24] MEDS: MIRALAX *UNIT DOSE* 17GM PACKET PO SCH (08:21)
--- NOTE | 2016-03-24 08:48 | IPN ---
DATE: 03/23/2016 The patient is seen and examined. No acute events overnight. Patient continued to report poor oral intake. Denies any chest pain, pressure or discomfort. Denies any abdominal pain, diarrhea, or constipation. Making bowel movement yesterdaay. Denies any nausea or vomiting. VITAL SIGNS: Temperature 96.8, pulse 83, respirations 20, blood pressure 152/76, pulse oximetry 96% on three liters nasal cannula. LABORATORY DATA: WBC 10.3, hemoglobin and hematocrit 8.3/26.5, platelets 261. Chemistry: Sodium 141, potassium 4.6, chloride 103, bicarbonate 31, BUN 82, creatinine 3.48. PHYSICAL EXAMINATION: GENERAL: Patient alert and oriented times three, in no acute distress, comfortable but fatigued. HEENT: Normocephalic, atraumatic. Moist mucous membranes. PULMONARY: Mild rhonchi in bilateral bases. Diminished breath sounds bilaterally. CARDIAC: Regular rate and rhythm. Distant heart sounds. Normal S1, S2. ABDOMEN: Obese, soft, mildly distended. Positive bowel sounds. Nontender. EXTREMITIES: No edema of bilateral lower extremities. 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 Patient was admitted with acute on chronic renal failure secondary to ileus with nausea and vomiting. 1. Ileus. Currently, the patient is tolerating diet but still having abdominal distention, passing gas, having bowel movements. GI regimen. X-ray appreciated. Appreciate surgery, Dr. Canela's assistance. Continue diet as ordered. 2. Acute on chronic renal failure. Baseline creatinine is 2, currently slightly improved. Likely secondary to prerenal azotemia in the presence of diarrhea, nausea, and vomiting. Ultrasound of the kidneys appreciated. Avoid nephrotoxic agents. Appreciate nephrology's assistance. We will continue to monitor. 3. Diastolic congestive heart failure, compensated. Strict input and output, daily weights. Withholding diuretics given patient is hypovolemic as per qa test analyst. 4. Chest pain, unstable angina with troponin leak. Possible etiology includes fluid overload, worsening kidney function, demand ischemia, and unstable angina. Cardiology consulted. Case discussed with Dr. Subramanian and Dr. Valle. Echocardiogram appreciated. Aspirin, Plavix, beta blockers, and statin. Angiotensin receptor blockers (ARBs) has been on hold given the patient's kidney function. Serial cardiac enzymes done. Patient currently transferred back to medical/surgical floor. 5. Type 2 diabetes. Insulin per protocol. Followup fingersticks. 6. Occupational lung disease with chronic hypoxia. Oxygen supplementation. Symbicort, ipratropium, albuterol. Continue to follow. 7. Chronic anemia. Followup hemoglobin and hematocrit, currently stable. 8. Obesity, complicating care. 9. Obstructive sleep apnea, not on CPAP. Obstructive sleep apnea (ANKITA) protocol. 10. Gait instability. Continue physical therapy. 11. Coronary arterial disease. Aspirin, Plavix, beta nel, and statin. 12. Hypertension. Continue blood pressure medication. Isosorbide dinitrate, hydralazine, Norvasc, clonidine, labetalol. Continue to monitor blood pressure. Adjust medication as needed. 13. Protein-calorie malnutrition. Patient with poor oral intake. Marinol added. Discussed calorie count and the prospect of possible percutaneous endoscopic gastrostomy (PEG) placement. We will discuss with surgery. Continue to monitor in the meantime. 14. Urinary tract infection (UTI). Continue antibiotic as ordered. 15. Benign prostatic hypertrophy (BPH). Continue home medications. 16. Deep vein thrombosis (DVT) prophylaxis. Heparin subcutaneously. DISPOSITION PLANNING: Physical therapy, pending placement, possible percutaneous endoscopic gastrostomy (PEG) placement, multiple comorbidities, poor long-term prognosis.
[2016-03-24] MEDS: HumaLOG INSULIN (NovoLOG) PER UNIT SC SCH ×4 (09:04→20:36)
--- NOTE | 2016-03-24 13:23 | IPN ---
DATE: 03/24/2016 SUBJECTIVE: The patient was seen and examined at the bedside today in the morning. He was started on IV fluid hydration yesterday at 60 mL per hour. His urine output yesterday was 1600 mL and so far, he has made 450 mL of urine. His creatinine remains almost the same as compared with yesterday. He reports that he ate half of his breakfast this morning. He reports slight improvement in his appetite. REVIEW OF SYSTEMS: The patient denies any fevers, chills, rigors, headache, nausea or vomiting. He does report a decreased appetite. He denies any chest pain or shortness of breath. He denies any constipation or diarrhea. The rest of the review of systems is negative. OBJECTIVE: VITAL SIGNS: Temperature is 96.3 degrees Fahrenheit, blood pressure is 158/80, pulse is 81, respiratory rate of 18, saturating 98% on nasal cannula at three liters per minute. INTAKE AND OUTPUT: Total intake is 1625 mL, output is 450 mL of urine. The patient is 1175 mL positive so far. PHYSICAL EXAMINATION: GENERAL: The patient is awake, alert and oriented times three, laying in bed, wearing nasal cannula, in no apparent distress. HEAD AND NECK EXAMINATION: Extraocular muscles intact. Pupils are equally round and reactive to light. Mucous membranes are still slightly dry. Neck is supple. There is no jugular venous distention (JVD). CARDIOVASCULAR: S1, S2, regular rate. No murmur, rub, or gallop. CHEST: Decreased breath sounds at the bases. Mild crepitations at the bases on deep inspiration. ABDOMEN: Soft, distended, mild tenderness to deep palpation in the epigastrium. Positive bowel sounds. No organomegaly. EXTREMITIES: No clubbing or cyanosis. No edema. Pulses are 2+. SKIN: The patient's skin looks dry. Otherwise, there are no rashes. CENTRAL NERVOUS SYSTEM: No focal neurological deficits. LABORATORY REVIEW: CBC showed a WBC of 9.9, hemoglobin 8.4, platelets are 243. BMP showed sodium 140, potassium 4.9, chloride 100, bicarbonate 31, BUN 73, creatinine 3.45, calcium is 9, phosphorus is 4.6. CURRENT MEDICATIONS: The patient's current medications were all reviewed by me. He continues to be on IV half normal saline (NS) at 60 mL per hour. There is no other change in the medications at this time. ASSESSMENT: Mr. Davin Snyder is a 75-year-old male with a past medical history of chronic kidney disease stage III, diastolic congestive heart failure, hypertension, diabetes mellitus type 2, and multiple other comorbidities. He was found to have a partial small bowel obstruction and acute renal failure associated with that. Nephrology service following the patient for management of acute kidney injury superimposed on chronic kidney disease stage III. 1. Acute kidney injury superimposed on chronic kidney disease stage III. The patient's creatinine continues to be around 3.4. He was started on IV fluid hydration because he was unable to take enough fluid orally because of decreased appetite and the gastric distention. Continue the IV fluid rate at half normal saline (NS) at 60 mL per hour. There are no signs of fluid overload. The patient has a good urine output at this time. 2. Chronic diastolic congestive heart failure. The patient was initially being given Lasix and hydrochlorothiazide which was stopped about two days ago because the patient's intake was low. Continue the gentle hydration at this time. Volume status is well optimized at this time. The patient actually clinically looks dry. 3. Gastric distention status post ileus and partial small bowel obstruction. As per surgical service, his gastric distention is because of aerophagia. The patient will most likely require an esophagogastroduodenoscopy (EGD) and percutaneous endoscopic gastrostomy (PEG) tube placement if his oral air intake does not improve. 4. Hypertension. The patient's blood pressure is in the 150s at this time. I would not tightly control the blood pressure of this patient because of his age and multiple comorbidities going on at this time. 5. Urinary tract infection. The patient is on ciprofloxacin for Enterococcus faecalis urinary tract infection (UTI). 6. Iron deficiency anemia. Because of the active infection being treated at this time, I am not going to give him Venofer. I would wait for full course of treatment for the UTI before we give Venofer to the patient. Continue the oral iron. Hemoglobin is acceptable at 8.4 at this time. No need of blood transfusion. The plan of care was discussed with the hospitalist team.
[2016-03-24 14:00] VITALS: BP 155/69
[2016-03-24] MEDS: TERAZOSIN 5 MG CAP PO SCH (20:35)
[2016-03-24] MEDS: hydrOXYzine 50 MG TAB PO SCH (20:35)
[2016-03-24 22:00] VITALS: BP 164/72
[2016-03-25 05:18] VITALS: BP 168/66
[2016-03-25] MEDS: ISOSORBIDE DIN. (ISORDIL) 20 MG TAB PO SCH ×3 (05:20→17:51)
[2016-03-25] MEDS: CIPROFLOXACIN 250 MG TAB PO SCH ×2 (05:20→17:50)
[2016-03-25] MEDS: ALBUTEROL SULFATE 2.5 MG/0.5 ML INH NEB SOLN NEB PRN (05:31)
[2016-03-25 06:00] VITALS: BP 168/66
[2016-03-25 06:43] LABS: MEAN CORPUSCULAR HEMOGLOBIN 27.3 pg (27.0-33.0); MEAN CORPUSCULAR HGB CONC 31.7 g/dl (32.0-36.5); RED CELL DISTRIBUTION WIDTH 15.1 % (11.5-14.5); WHITE BLOOD COUNT 9.5 K/mm3 (4.0-10.0)
[2016-03-25] MEDS: TIOTROPIUM INHALER/CAPSULE (SPIRIVA) INH SCH (07:17)
[2016-03-25] MEDS: SYMBICORT 160/4.5MCG INHALER 6GM INH SCH ×2 (07:19→19:21)
[2016-03-25 07:21] LABS: ALBUMIN 2.2 GM/DL (3.2-5.2); CALCIUM LEVEL 8.8 MG/DL (8.8-10.2); CREATININE FOR GFR 3.44 MG/DL (0.70-1.30); GLOMERULAR FILTRATION RATE 18.5 (>42); PHOSPHORUS LEVEL 4.9 MG/DL (2.5-4.9); POTASSIUM SERUM 4.9 MEQ/L (3.5-5.1)
[2016-03-25] MEDS: ALBUTEROL SULFATE 2.5 MG/0.5 ML INH NEB SOLN INH SCH ×3 (07:22→19:22)
[2016-03-25] MEDS: HumaLOG INSULIN (NovoLOG) PER UNIT SC SCH ×4 (07:30→21:00)
--- NOTE | 2016-03-25 08:14 | IPN ---
DATE: 03/24/2016 Patient is seen and examined. No acute events overnight. With poor oral intake but reported taking 50% of breakfast. Denies any fevers, chills, chest pain, pressure or discomfort. Vital signs: Temperature 96.5, pulse 71, respirations 15, blood pressure 155/69, pulse ox 96% on 2 liters nasal cannula. LABORATORY: WBC 9.9, hemoglobin and hematocrit 8.4/26.4, platelets 243. Chemistry: Sodium 140, potassium 4.9, chloride 100, bicarbonate 31, BUN 73, creatinine 3.45. PHYSICAL EXAMINATION: General: Patient alert and oriented times three, no acute distress. HEENT: Normocephalic, atraumatic. Moist mucous membranes. Pulmonary: Mild rhonchi bilateral bases. Diminished breath sounds bilateral. Cardiac: Regular rate and rhythm. Distant heart sounds. S1, S2. Abdomen: Soft, obese. Mildly distended. Positive bowel sounds. Extremities: No edema bilateral lower extremities. ASSESSMENT AND PLAN: This is a 75-year-old male patient with underlying medical history of chronic kidney disease (CKD) stage III, chronic occupational lung disease due to occupational exposure on 3 liters oxygen at home, hypertension, gout, coronary arterial disease with myocardial infarction, diastolic congestive heart failure, type 2 diabetes, benign prostatic hypertrophy (BPH), gastritic, dyslipidemia, history of pulmonary embolism (PE), history of gastrointestinal (GI) bleed, obstructive sleep apnea not on CPAP. Patient was admitted with acute on chronic renal failure with ileus with nausea, vomiting. PROBLEMS: 1. Ileus, currently patient tolerating diet. Still having abdominal distention, passing gas. As per patient, abdominal distention is chronic. Appreciate Dr. Canela's assistance from general surgery. Patient making bowel movement. X-rays appreciated. Continue diet as ordered. 2. Acute on chronic renal failure. Baseline creatinine is 2. Currently slightly improved likely secondary to prerenal azotemia given patient presented with diarrhea, nausea, vomiting. Ultrasound of kidney appreciated. Avoid nephrotoxin agent. Appreciate nephrology assistance. Continue to follow. 3. Diastolic congestive heart failure. Currently compensated. Strict input and output, daily weight. Withholding diuretics given patient hypovolemic. Restart as per nephrology. 4. Chest pain, unstable angina with troponin leak. Possible etiology includes fluid overload, worsening kidney function, demand ischemia, unstable angina. Currently patient asymptomatic. Aspirin and Plavix as per cardiology. Case discussed with Dr. Subramanian and Dr. Valle. Continue beta nel, continue statin. ARBs has been on hold given patient with elevated kidney function. Serial cardiac enzyme appreciated. Currently patient transferred back to medical/surgical floor. 5. Type 2 diabetes. Insulin as per protocol. 6. Occupational lung disease, chronic hypoxia. Continue Symbicort, ipratropium, albuterol. Continue to follow. 7. Chronic anemia. Follow hemoglobin and hematocrit. Transfuse as needed. 8. Obesity complicating care. 9. Obstructive sleep apnea. ANKITA protocol. Patient not compliant with CPAP. 10. Gait instability. Continue physical therapy. 11. Chronic coronary arterial disease. Aspirin, statin, beta blockers, Plavix, hydralazine, clonidine, Labetalol, isosorbide dinitrate. 12. Hypertension. Continue blood pressure medication, isosorbide dinitrate, hydralazine, Norvasc, clonidine, Labetalol. Continue to monitor blood pressure and adjust as needed. 13. Protein calorie malnutrition. Patient has poor oral intake. Marinol has been added. Calorie count. Nutrition consultation. Case discussed with patient and family. If patient's calorie intake does not improve, will discuss with surgery for possible percutaneous endoscopic gastrostomy placement and EGD. 14. Urinary tract infection (UTI). Continue antibiotics as ordered to complete 14 day course. 15. Benign prostatic hypertrophy. Continue home medication. 16. Deep venous thrombosis (DVT) prophylaxis, heparin subcutaneous. DISPOSITION PLANNING: Pending placement. Physical therapy. Possible percutaneous endoscopic gastrostomy placement if patient's nutritional status is not improved. Patient with multiple comorbidities. Poor correction prognosis.
[2016-03-25] MEDS: HEPARIN SOD (PORCINE) 5000 UNITS/ML VIAL SQ SCH ×2 (08:17→21:02)
[2016-03-25] MEDS: DRONABINOL 2.5 MG CAP (MARINOL) PO SCH ×3 (08:20→21:04)
[2016-03-25] MEDS: VITAMIN D 1,000 INTERNATIONAL UNITS TABLET PO SCH (08:20)
[2016-03-25] MEDS: CLOPIDOGREL 75 MG TAB PO SCH (08:21)
[2016-03-25] MEDS: PANTOPRAZOLE 40MG TAB (PROTONIX) PO SCH (08:21)
[2016-03-25] MEDS: MULTIVITAMINS/MINERALS THERAP 1 TAB PO SCH (08:21)
[2016-03-25] MEDS: SENOKOT S TAB PO SCH ×2 (08:21→21:03)
[2016-03-25] MEDS: ATORVASTATIN 20 MG TAB PO SCH (08:21)
[2016-03-25] MEDS: LABETALOL 200 MG TAB PO SCH (08:22)
[2016-03-25] MEDS: FERROUS SULFATE 325MG TAB PO SCH ×2 (08:22→21:03)
[2016-03-25] MEDS: cloNIDine 0.1 MG TAB PO SCH ×2 (08:22→21:03)
[2016-03-25] MEDS: amLODIPine 5 MG TAB PO SCH (08:23)
[2016-03-25] MEDS: **hydrALAZINE** 50 MG TAB PO SCH ×3 (08:23→21:03)
[2016-03-25] MEDS: ASPIRIN 81 MG ENTERIC TAB PO SCH (08:24)
[2016-03-25] MEDS: MIRALAX *UNIT DOSE* 17GM PACKET PO SCH (09:00)
--- NOTE | 2016-03-25 09:58 | IPNPDOC ---
[facility] Cardiology Progress Note Date of Service/Time The patient was seen on 03/25/16 at 09:50. Cardiology Progress Note SUBJECTIVE: Mr Snyder was seen and examined at bedside this morning, seems to be a bit more fatigued than on prior days examination. However still generally seemed comfortable. In no acute disease distress without active complaints. OBJECTIVE: PHYSICAL EXAMINATION: VITAL SIGNS: Please see below. GENERAL APPEARANCE: Appears a bit more fatigued this morning, no acute distress , laying in bed at a 45 incline. HEENT: NCAT, EOMI, moist mucus membranes, tongue midline, neck supple, nares patent b/l LUNGS: CTA b/l, a bit diminished at bases b/l, no rales, crackles, wheeze or rhonchi appreciated HEART: normal s1 and s1, no murmurs, rubs or gallops appreciated ABDOMEN: non-distended, not painful to palpitation SKIN: intact EXTREMITIES: no swelling, cyanosis or clubbing appreciated NEUROLOGICAL: without focal deficits PSYCHIATRIC: affect is appropriate LABORATORY WORK: Please see below. ASSESSMENT AND PLAN: Blood pressure is still a bit high hovering at 160/60, will change from 200 mg labetalol twice a day to 300 mg labetalol twice a day as patient's heart rate has been in the 60s to 80s. Patient was recently started on hydration. Unfortunately he continues to have chronic renal insufficiency with last creatinine of 3.5 and this will be a barrier to adequate blood pressure control. The patient will likely require dialysis in the near future. He admits that he has not been out of bed much lately but denies chest pain, palpitations or shortness of breath. He is also on hydralazine, amlodipine and isosorbide dinitrate medical therapy but continues to have increased blood pressure, secondary to advanced renal disease. No further recommendations at this time. Vital Signs/I&O VS/I&O Vital Signs Date Time Temp Pulse Resp B/P Pulse Ox O2 Delivery O2 Flow Rate FiO2 03/25/16 08:23 168/66 03/25/16 08:23 77 03/25/16 06:00 96.5 20 97 Nasal Cannula 3.0 I&O- Last 24 Hours up to 6 AM 03/25/16 06:00 Intake Total 3527 ml Output Total 1150 ml Balance 2377 ml Laboratory Data 24H LABS Laboratory Tests 2 03/24/16 11:56: Bedside Glucose (Misc Panel) 210H 03/24/16 16:58: Bedside Glucose (Misc Panel) 190H 03/24/16 20:36: Bedside Glucose (Misc Panel) 224H 03/25/16 06:15: Albumin 2.2L, Blood Urea Nitrogen 69H, Creatinine 3.44H, Sodium Level 139, Potassium Level 4.9, Chloride Level 101, Carbon Dioxide Level 29, Anion Gap 9, Calcium Level 8.8, Glomerular Filtration Rate 18.5L, Phosphorus Level 4.9 CBC/BMP Laboratory Tests 03/25/16 06:15 Anion Gap 9, Red Blood Count 2.94 L, Mean Corpuscular Volume 86.0, Mean Corpuscular Hemoglobin 27.3, Mean Corpuscular Hemoglobin Concent 31.7 L, Red Cell Distribution Width 15.1 H FSBS Laboratory Tests Test 03/24/16 11:56 03/24/16 16:58 03/24/16 20:36 Range/Units Bedside Glucose (Misc Panel) 210 190 224 83-110 MG/DL Microbiology Microbiology 03/20/16 MRSA Screen - Final, Complete GME ATTESTATION GME ATTESTATION My preceptor for this patient encounter was physically present in the building during the encounter and was fully available. As needed, all aspects of the patient interview, examination, medical decision making process, and medical care plan development were reviewed and approved by the preceptor. Preceptor is aware and concurs with the plan as stated in the body of this note and will attest to such by his/her cosignature. REBEL GRIFFIN DO Mar 25, 2016 09:58
--- NOTE | 2016-03-25 12:08 | IPNPDOC ---
Date/Time Seen The patient was seen on 03/25/16 at 11:57. Progress Note DATE OF ENCOUNTER: 03/25/2016 SUBJECTIVE: Patient was seen this morning at bedside. He was laying in bed comfortably. No acute overnight events. He reports that he ate well yesterday, but this morning he does not have much of an appetite. Abdomen feels better. He reports that he had 2 bowel movements yesterday. No acute complaints. Review of systems is negative for nausea, vomiting, diarrhea, chest pain or pressure, increased shortness of breath, headache, dizziness, fevers, chills. He is afebrile and white count has normalized. OBJECTIVE: Vital Signs Date Time Temp Pulse Resp B/P Pulse Ox O2 Delivery O2 Flow Rate FiO2 03/25/16 11:25 Nasal Cannula 3.0 03/25/16 08:23 168/66 03/25/16 08:23 77 03/25/16 06:00 96.5 20 97 I&O- Last 24 Hours up to 6 AM 03/25/16 06:00 Intake Total 3527 ml Output Total 1150 ml Balance 2377 ml GENERAL: Awake and alert, in no acute distress HEENT: Normocephalic, atraumatic. Extraocular movements intact. Moist mucosa. NECK: Supple. Jugular veins are not significantly elevated. HEART: Normal S1, S2. Regular rate and rhythm. No murmurs appreciated. LUNGS: Diminished breath sounds. No rhonchi or wheezing appreciated. ABDOMEN: Abdomen is soft. Nontender to palpation. Bowel sounds are present. No rebound, guarding or rigidity. EXTREMITIES: No cyanosis. No significant lower extremity edema. Positive pedal pulses bilaterally. NEUROLOGIC: No focal deficits. LABORATORY DATA: 03/25/16 06:15 ASSESSMENT AND PLAN: Mr. Snyder is a 75 year old male with past medical history significant for chronic kidney disease stage III, diastolic heart failure, chronic lung disease from occupational exposure with 3 L home O2, hypertension, gout, coronary artery disease with history of LA, diabetes mellitus type 2, hyperlipidemia, BPH, history of GI bleed and gastritis and sleep apnea not on CPAP who presented due to hypoglycemia, found to be in acute on chronic renal failure with partial small bowel obstruction. 1. Acute on chronic kidney disease stage III. Creatinine is essentially unchanged. Baseline is about 2.0. Volume status and electrolytes are stable. No acute indication for dialysis at this time. IV fluids are being discontinued and renal function will continue to be monitored. 2. Chronic diastolic heart failure. He takes Lasix and hydrochlorothiazide at home, both of which have been held on admission due to acute kidney injury. Volume status is stable. 3. Gastric distention status post ileus/partial small bowel obstruction. Per surgery, gastric distention is due to aerophagia. Being managed by primary team. Patient was started on Marinol to help with his appetite. 4. Hypertension. Blood pressure is suboptimal. His labetalol has been increased per cardiology. He is also on Isordil 3 times daily, hydralazine 3 times a day, amlodipine daily, clonidine twice daily, labetalol twice daily, and terazosin daily. Continue with current meds. Hydrochlorothiazide, Lasix and losartan were held on admission secondary to acute kidney injury. 5. Anemia in chronic kidney disease. Hemoglobin is currently 8.0. If it decreases further, he may need transfusion. No signs of acute bleeding. He is on ferrous sulfate. 6. Urinary tract infection with culture positive for Enterococcus faecalis. Patient is on ciprofloxacin. GME ATTESTATION GME ATTESTATION My preceptor for this patient encounter was physically present in the building during the encounter and was fully available. As needed, all aspects of the patient interview, examination, medical decision making process, and medical care plan development were reviewed and approved by the preceptor. Preceptor is aware and concurs with the plan as stated in the body of this note and will attest to such by his/her cosignature. JAKOB ARRIAZA DO Mar 25, 2016 12:08
[2016-03-25 14:00] VITALS: BP 190/86
--- NOTE | 2016-03-25 15:46 | IPN ---
DATE: 03/25/2016 The patient is seen and examined. Reported slightly improved appetite. Able to finish about 40% of breakfast. Denies any chest pain, pressure or discomfort. Respirations at baseline. Denies any fevers, chills. VITAL SIGNS: Temperature 96.5, pulse 77, respirations 20, blood pressure 154/84, pulse oximetry 97% on 3 liters nasal cannula. LABORATORY DATA: WBC 9.5, hemoglobin and hematocrit 8/25.3, platelets 231. Chemistry: Sodium 139, potassium 4.9, chloride 101, bicarbonate 29, BUN 69 PHYSICAL EXAMINATION: GENERAL: The patient is alert and oriented times three. No acute distress. HEENT: Normocephalic, atraumatic. Moist mucous membranes. PULMONARY: Mild rhonchi in bilateral base. Diminished breath sounds bilaterally. CARDIAC: Regular rate and rhythm. Distant heart sounds. S1, S2. ABDOMEN: Soft, obese. Mildly distended. Positive bowel sounds. EXTREMITIES: No edema in bilateral lower extremities. 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 The patient was admitted with acute on chronic renal failure, ileus and with vomiting. 1. Ileus. Currently, the patient is tolerating diet. Still having mild abdominal distention. As per patient, chronic. Passing gas. Appreciate surgery consultation from Dr. Canela. Making bowel movements. X-ray appreciated. Continue diet. 2. Acute on chronic renal failure. Baseline creatinine is 2.0. Currently, slightly improved. Likely secondary to prerenal azotemia. Given the patient presented with nausea, vomiting and diarrhea, ultrasound of kidney appreciated. Avoid nephrotoxic agents. Appreciate nephrology assistance. Continue to follow. 3. Diastolic congestive heart failure (CHF). The patient is currently euvolemic. Strict input and output, daily weights. Withholding diuretics, restart as per nephrology. 4. Chest pain, unstable angina with troponin leak, possible etiology also includes worsening kidney function, demand ischemia, unstable angina. Currently , the patient is asymptomatic. Aspirin and Plavix. Cardiology consulted. Discussed with Dr. Valle and Dr. Subramanian. Continue beta nel. Dosage increased. Continue statin. ARB on hold given the patient has elevated creatinine. The patient also on hydralazine and isosorbide dinitrate. Monitor blood pressure. Also on Norvasc. Cardiac enzymes appreciated. The patient was monitored in telemetry and currently on medical/surgical floor. 5. Type 2 diabetes. Insulin as per protocol. 6. Occupational lung disease, chronic hypoxia. Continue Symbicort, ipratropium , albuterol. Continue to follow. Oxygen supplementation. 7. Chronic anemia. Monitor hemoglobin and hematocrit and transfuse as needed. 8. Obesity, complicating care. 9. Obstructive sleep apnea. Obstructive sleep apnea protocol. The patient is not compliant with CPAP. 10. Gait instability. Continue physical therapy (PT). 11. Chronic coronary artery disease. Aspirin, Plavix, beta nel, statin, hydralazine, clonidine, labetalol, isosorbide dinitrate, dosage has been adjusted. 12. Hypertension. Continue blood pressure medication. The patient is on isosorbide dinitrate, hydralazine, Norvasc, clonidine, labetalol. Continue blood pressure monitoring and adjust as needed. 13. Protein calorie malnutrition. Poor oral intake. Marinol added. Calorie count. Dietary consultation. Discussed with the patient and family. If the patient's calorie intake does not improve, we will discuss with surgery for possible EGD with percutaneous endoscopic gastrostomy (PEG) tube. In the meantime, the patient seems to have improved oral intake, finished 50% of breakfast this morning. 14. Urinary tract infection (UTI). Continue antibiotics as ordered. We will complete a 14-day course. 15. Benign prostatic hypertrophy (BPH) . Continue home medications. 16. Deep vein thrombosis (DVT) prophylaxis. Heparin subcutaneously. DISPOSITION PLANNING: Pending placement. Physical therapy (PT). Calorie count and dietary consultation. Possible PEG tube placement if the patient's oral intake does not improve. The patient with multiple comorbidities, poor long- term prognosis. MTDD
[2016-03-25] MEDS: TERAZOSIN 5 MG CAP PO SCH (21:03)
[2016-03-25] MEDS: LABETALOL 100 MG TAB PO SCH (21:03)
[2016-03-25] MEDS: hydrOXYzine 50 MG TAB PO SCH (21:03)
[2016-03-25 22:00] VITALS: BP 172/77
[2016-03-26] MEDS: CIPROFLOXACIN 250 MG TAB PO SCH (05:17)
[2016-03-26 05:31] VITALS: O2SAT 96
[2016-03-26] MEDS: ALBUTEROL SULFATE 2.5 MG/0.5 ML INH NEB SOLN NEB PRN (05:39)
[2016-03-26 06:00] VITALS: BP 166/77
[2016-03-26] MEDS: ISOSORBIDE DIN. (ISORDIL) 20 MG TAB PO SCH ×3 (06:10→17:26)
[2016-03-26 06:50] LABS: MEAN CORPUSCULAR HGB CONC 31.7 g/dl (32.0-36.5); RED CELL DISTRIBUTION WIDTH 14.9 % (11.5-14.5); WHITE BLOOD COUNT 9.4 K/mm3 (4.0-10.0)
[2016-03-26 07:04] LABS: ALBUMIN 2.2 GM/DL (3.2-5.2); CREATININE FOR GFR 3.37 MG/DL (0.70-1.30); PHOSPHORUS LEVEL 4.8 MG/DL (2.5-4.9); POTASSIUM SERUM 4.9 MEQ/L (3.5-5.1)
[2016-03-26] MEDS: HumaLOG INSULIN (NovoLOG) PER UNIT SC SCH ×4 (07:30→20:08)
[2016-03-26] MEDS: TIOTROPIUM INHALER/CAPSULE (SPIRIVA) INH SCH (07:42)
[2016-03-26] MEDS: SYMBICORT 160/4.5MCG INHALER 6GM INH SCH ×2 (07:42→20:11)
[2016-03-26] MEDS: ALBUTEROL SULFATE 2.5 MG/0.5 ML INH NEB SOLN INH SCH ×3 (07:46→20:00)
[2016-03-26] MEDS: amLODIPine 5 MG TAB PO SCH (09:00)
--- NOTE | 2016-03-26 09:23 | IPNPDOC ---
Date/Time Seen The patient was seen on 03/26/16 at 09:13. Progress Note DATE OF ENCOUNTER: 03/26/2016 SUBJECTIVE: Patient was seen this morning at bedside. He was laying in bed comfortably. No acute overnight events. He reports that he ate lunch and dinner yesterday, but it appears that breakfast is his least favorite. No acute complaints. Review of systems is negative for nausea, vomiting, abdominal pain, diarrhea, chest pain or pressure, shortness of breath, headache, dizziness, fevers, chills. He is afebrile. OBJECTIVE: Vital Signs Date Time Temp Pulse Resp B/P Pulse Ox O2 Delivery O2 Flow Rate FiO2 03/26/16 06:10 170/78 03/26/16 06:00 96.9 76 14 97 Nasal Cannula 3.0 I&O- Last 24 Hours up to 6 AM 03/26/16 06:00 Intake Total 840 ml Output Total 1500 ml Balance -660 ml GENERAL: Patient alert and oriented, in no acute distress. HEENT: Normocephalic, atraumatic. Extraocular movements intact. Moist mucosa. NECK: Supple. Jugular veins are not significantly elevated. HEART: Normal S1, S2. Regular rate and rhythm. LUNGS: Diminished breath sounds. No rhonchi or wheezing appreciated. ABDOMEN: Abdomen is soft. Nontender to palpation. Bowel sounds are present. No rebound, guarding or rigidity. EXTREMITIES: No cyanosis. No significant lower extremity edema. Positive pedal pulses bilaterally. NEUROLOGIC: No focal deficits. LABORATORY DATA: 03/26/16 06:37 ASSESSMENT AND PLAN: Mr. Snyder is a 75 year old male with past medical history significant for chronic kidney disease stage III, diastolic heart failure, chronic lung disease from occupational exposure with 3 L home O2, hypertension, gout, coronary artery disease with history of PA, diabetes mellitus type 2, hyperlipidemia, BPH, history of GI bleed and gastritis and sleep apnea not on CPAP who presented due to hypoglycemia, found to be in acute on chronic renal failure with partial small bowel obstruction. 1. Acute on chronic kidney disease stage III. Creatinine is slowly improving. Baseline is about 2.0. Volume status and electrolytes are stable. No acute indication for dialysis at this time. 2. Chronic diastolic heart failure. He takes Lasix and hydrochlorothiazide at home, both of which have been held on admission due to acute kidney injury. Volume status is stable. 3. Gastric distention status post ileus/partial small bowel obstruction. Per surgery, gastric distention is due to aerophagia. Being managed by primary team. Patient was started on Marinol to help with his appetite. 4. Hypertension. Blood pressure is suboptimal. Norvasc has been increased. He is now on Norvasc 10mg daily, labetalol 300mg BID, Isordil 20mg TID, hydralazine 50mg TID, clonidine 0.1 BID and terazosin 5mg qhs. Hydrochlorothiazide, Lasix and losartan were held on admission secondary to acute kidney injury. 5. Anemia in chronic kidney disease. Hemoglobin has trended down a little, current 7.8. Transfuse if <8. No signs of acute bleeding. He is on ferrous sulfate. 6. Urinary tract infection with culture positive for Enterococcus faecalis. Patient has completed a course of ciprofloxacin. GME ATTESTATION GME ATTESTATION My preceptor for this patient encounter was physically present in the building during the encounter and was fully available. As needed, all aspects of the patient interview, examination, medical decision making process, and medical care plan development were reviewed and approved by the preceptor. Preceptor is aware and concurs with the plan as stated in the body of this note and will attest to such by his/her cosignature. JAKOB ARRIAZA DO Mar 26, 2016 09:23
[2016-03-26] MEDS: ATORVASTATIN 20 MG TAB PO SCH (09:36)
[2016-03-26] MEDS: SENOKOT S TAB PO SCH ×2 (09:36→20:07)
[2016-03-26] MEDS: DRONABINOL 2.5 MG CAP (MARINOL) PO SCH ×3 (09:37→20:07)
[2016-03-26] MEDS: cloNIDine 0.1 MG TAB PO SCH ×2 (09:37→20:08)
[2016-03-26] MEDS: **hydrALAZINE** 50 MG TAB PO SCH ×3 (09:37→20:08)
[2016-03-26] MEDS: VITAMIN D 1,000 INTERNATIONAL UNITS TABLET PO SCH (09:37)
[2016-03-26] MEDS: PANTOPRAZOLE 40MG TAB (PROTONIX) PO SCH (09:38)
[2016-03-26] MEDS: LABETALOL 100 MG TAB PO SCH ×2 (09:38→20:06)
[2016-03-26] MEDS: CLOPIDOGREL 75 MG TAB PO SCH (09:38)
[2016-03-26] MEDS: amLODIPine 10 MG TAB PO SCH (09:38)
[2016-03-26] MEDS: ASPIRIN 81 MG ENTERIC TAB PO SCH (09:38)
[2016-03-26] MEDS: MULTIVITAMINS/MINERALS THERAP 1 TAB PO SCH (09:38)
[2016-03-26] MEDS: FERROUS SULFATE 325MG TAB PO SCH ×2 (09:38→20:08)
[2016-03-26] MEDS: MIRALAX *UNIT DOSE* 17GM PACKET PO SCH (09:38)
[2016-03-26] MEDS: HEPARIN SOD (PORCINE) 5000 UNITS/ML VIAL SQ SCH ×2 (09:40→20:07)
--- NOTE | 2016-03-26 11:51 | IPNPDOC ---
[facility] Cardiology Progress Note Date of Service/Time The patient was seen on 03/26/16 at 11:36. Cardiology Progress Note SUBJECTIVE: Mr Snyder is a 75 y/o male who was seen and examined at bedside this morning, patient does not appear as fatigued as one day prior. He appears comfortable and is non-labored. Admits that he has not done much walking. Denies shortness of breath, chest pain or palpitations. OBJECTIVE: PHYSICAL EXAMINATION: VITAL SIGNS: Please see below. GENERAL APPEARANCE: Laying in bed comfortably, in no distress and nonlabored. HEENT: NCAT, EOMI, nares patent bilaterally, tongue midline, moist mucous membranes. LUNGS: CTA b/l, no rales, rhonchi or wheezing appreciated, good air expansion b/ l HEART: no murmurs, gallops or rubs appreciated, normal s1 and s2. rate in 70 's ABDOMEN: NABSx4, non tender to palpitation, non distended, no organomegaly SKIN: intact EXTREMITIES: without swelling, cyanosis or clubbing NEUROLOGICAL: appears more spry this morning from one day prior, no focal deficits appreciated PSYCHIATRIC: affect is appropriate LABORATORY WORK: Please see below. ASSESSMENT AND PLAN: Mr Snyder seems to be doing better this morning. His blood pressure is still suboptimal hovering around 166/70, per nephrology his Norvasc was increased from 5 mg to 10 mg daily. He is now currently taking Norvasc 10mg daily, labetalol 300mg BID, Isordil 20mg TID, hydralazine 50mg TID, clonidine 0.1 BID and terazosin 5mg qhs. His creatinine is essentially unchanged, today it is 3.37 from 3.4 for one day prior, his baseline is 2. His hemoglobin has dropped slightly from one day prior to 7.8 today, this is likely secondary to anemia of chronic disease, patient is on ferrous sulfate and has no active signs of bleeding. His IV fluids have been discontinued 1 day prior. He has diastolic CHF but he does not appear to be edematous and at this point it seems his volume status is appropriate. His acute on chronic kidney disease stage III is management as per nephrology, however his electrolytes appear stable as does his volume status. Pulse has been acceptable in the 60-80 BPM range. It would appear that his advanced kidney disease will be an issue for the patient going forward in terms of managing his blood pressure, although there is no need for dialysis at this point the patient has a high likelihood of requiring this in the future. He is also noted to have some gastric distention status post small bowel obstruction or ileus, as per surgery likely secondary to aerophagia, he was given Marinol to stimulate his appetite one day ago. Continue with 300 mg labetalol twice a day. No further recommendations at this time. Vital Signs/I&O VS/I&O Vital Signs Date Time Temp Pulse Resp B/P Pulse Ox O2 Delivery O2 Flow Rate FiO2 03/26/16 09:37 170/78 03/26/16 06:00 96.9 76 14 97 Nasal Cannula 3.0 I&O- Last 24 Hours up to 6 AM 03/26/16 06:00 Intake Total 840 ml Output Total 1500 ml Balance -660 ml Laboratory Data 24H LABS Laboratory Tests 2 03/25/16 16:35: Bedside Glucose (Misc Panel) 176H 03/25/16 20:22: Bedside Glucose (Misc Panel) 192H 03/26/16 06:37: Albumin 2.2L, Blood Urea Nitrogen 68H, Creatinine 3.37H, Sodium Level 139, Potassium Level 4.9, Chloride Level 101, Carbon Dioxide Level 29, Anion Gap 9, Calcium Level 9.0, Glomerular Filtration Rate 19.0L, Phosphorus Level 4.8 CBC/BMP Laboratory Tests 03/26/16 06:37 Anion Gap 9, Red Blood Count 2.91 L, Mean Corpuscular Volume 85.0, Mean Corpuscular Hemoglobin 27.0, Mean Corpuscular Hemoglobin Concent 31.7 L, Red Cell Distribution Width 14.9 H FSBS Laboratory Tests Test 03/25/16 16:35 03/25/16 20:22 Range/Units Bedside Glucose (Misc Panel) 176 192 83-110 MG/DL Microbiology Microbiology 03/20/16 MRSA Screen - Final, Complete GME ATTESTATION GME ATTESTATION My preceptor for this patient encounter was physically present in the building during the encounter and was fully available. As needed, all aspects of the patient interview, examination, medical decision making process, and medical care plan development were reviewed and approved by the preceptor. Preceptor is aware and concurs with the plan as stated in the body of this note and will attest to such by his/her cosignature. REBEL GRIFFIN DO Mar 26, 2016 11:51
[2016-03-26 14:00] VITALS: BP 149/70
--- NOTE | 2016-03-26 18:02 | IPNPDOC ---
Assessment/Plan Date Seen The patient was seen on 03/26/16. Problems Problems: (1) Ileus Status: Resolved Response to Treatment: Stable Problem Text: Tolerating regular diet well and passing bowel movements and flatus without any issues Surgical consultation noted from earlier in the admission We will continue to monitor his progress (2) Acute kidney injury superimposed on CKD Status: Acute Response to Treatment: Improving Problem Text: Patient's serum creatinine down trending and around 3.3 at this time, baseline around 2 Initially thought to be secondary to prerenal azotemia as the patient did present with diarrhea Possibly secondary to underlying abdominal distention from ileus vs ?Small bowel obstruction Ultrasound of the kidneys ordered-notable for medical renal disease Nephrotoxins held Electrolytes stable Nephrology on board (3) Diastolic CHF Status: Chronic Response to Treatment: Stable Problem Text: Currently appears clinically compensated Diuretic therapy as per Nephro (4) Occupational lung disease Status: Chronic Problem Text: Continue on albuterol, Symbicort, tiotropium (5) Diabetes Status: Chronic Problem Text: Continue on insulin sliding scale (6) Chronic anemia Status: Chronic Problem Text: Hemoglobin noted to be 7.8 today No active bleeding noted We'll transfuse 1 unit of packed red blood cells Continue with ferrous sulfate therapy (7) Obesity Status: Chronic (8) ANKITA (obstructive sleep apnea) Status: Chronic (9) Gait instability Status: Chronic Problem Text: Physical therapy ordered (10) CAD in chilkat artery Status: Chronic Problem Text: Continue aspirin, nel, simvastatin (11) Hypertension Status: Chronic Response to Treatment: Stable Problem Text: Continue current anti-hypertensive regimen. (12) Protein calorie malnutrition Status: Acute Problem Text: The patient has been having poor oral intake, and Marinol was added Calories count in affect, the patient did eat 50% of his lunch today The possibility of PEG tube was discussed with the patient and his family at the bedside given the patient's lack of appetite and poor oral intake Patient states that he would like to try to increase his oral intake at this time. We will continue to monitor his progress Plan / VTE VTE Prophylaxis Ordered?: Yes Disposition Pending clinical improvement, pending monitoring of the patient's oral intake and need for PEG tube. In the meantime, the patient will need placement. Poor long-term prognosis given the patient's multiple comorbidities. Subjective Review of Systems CC/HPI The patient is a 75-year-old male admitted with a reason for visit of [place] ( Acute Kidney Injury). General: Denies: Chills, Night Sweats Constitutional: Denies: Chills, Fever Eyes: Denies: Pain, Vision change ENT: Denies: Ear Pain, Head Aches Skin: Denies: Lesions, Rash Pulmonary: Reports: Dyspnea, Denies: Cough Cardiovascular: Denies: Chest Pain, Palpitations Gastrointestinal: Denies: Abdominal Pain, Nausea, Vomiting Hematologic: Denies: Bleeding Excessively, Bruising Objective Physical Examination General Exam: Positive: Alert, Cooperative, No Acute Distress ENT Exam: Positive: Atraumatic, Mucous membr. moist/pink Chest Exam: Positive: Clear to auscultation, Diminished, Normal air movement, Negative: Rales Heart Exam: Positive: Normal S1, Normal S2, Rate Normal Abdomen Exam: Positive: Other (mildly distended), Soft, Negative: Hepatospenomegaly, Tenderness Extremity Exam: Negative: Tenderness Vital Signs/I&O Vital Signs Date Time Temp Pulse Resp B/P Pulse Ox O2 Delivery O2 Flow Rate FiO2 03/26/16 17:26 160/65 03/26/16 14:00 96.2 71 20 98 Nasal Cannula 3.0 I&O- Last 24 Hours up to 6 AM 03/26/16 06:00 Intake Total 840 ml Output Total 1500 ml Balance -660 ml Laboratory Data Labs 24H Laboratory Tests 2 03/25/16 20:22: Bedside Glucose (Misc Panel) 192H 03/26/16 06:37: Albumin 2.2L, Blood Urea Nitrogen 68H, Creatinine 3.37H, Sodium Level 139, Potassium Level 4.9, Chloride Level 101, Carbon Dioxide Level 29, Anion Gap 9, Calcium Level 9.0, Glomerular Filtration Rate 19.0L, Phosphorus Level 4.8 03/26/16 11:48: Bedside Glucose (Misc Panel) 216H 03/26/16 11:49: Lactic Acid Level 1.1 03/26/16 17:11: Bedside Glucose (Misc Panel) 190H CBC/BMP Laboratory Tests 03/26/16 06:37 Anion Gap 9, Red Blood Count 2.91 L, Mean Corpuscular Volume 85.0, Mean Corpuscular Hemoglobin 27.0, Mean Corpuscular Hemoglobin Concent 31.7 L, Red Cell Distribution Width 14.9 H FSBS Laboratory Tests Test 03/25/16 20:22 03/26/16 11:48 03/26/16 17:11 Range/Units Bedside Glucose (Misc Panel) 192 216 190 83-110 MG/DL Microbiology Microbiology 03/20/16 MRSA Screen - Final, Complete MARY PEOPLES MD Mar 26, 2016 18:02
[2016-03-26 19:58] VITALS: BP 178/77
[2016-03-26] MEDS: TERAZOSIN 5 MG CAP PO SCH (20:07)
[2016-03-26] MEDS: hydrOXYzine 50 MG TAB PO SCH (20:07)
[2016-03-26 22:22] VITALS: BP 149/70
[2016-03-27] MEDS: ISOSORBIDE DIN. (ISORDIL) 20 MG TAB PO SCH ×3 (06:08→18:09)
[2016-03-27 06:10] VITALS: BP 180/84
[2016-03-27 07:27] LABS: MEAN CORPUSCULAR HEMOGLOBIN 27.2 pg (27.0-33.0); MEAN CORPUSCULAR HGB CONC 32.2 g/dl (32.0-36.5); MEAN CORPUSCULAR VOLUME 84.4 fl (80.0-96.0); WHITE BLOOD COUNT 9.1 K/mm3 (4.0-10.0)
[2016-03-27 07:40] LABS: ALBUMIN 2.4 GM/DL (3.2-5.2); CALCIUM LEVEL 8.9 MG/DL (8.8-10.2); CREATININE FOR GFR 3.55 MG/DL (0.70-1.30); GLOMERULAR FILTRATION RATE 17.9 (>42); PHOSPHORUS LEVEL 4.8 MG/DL (2.5-4.9); POTASSIUM SERUM 4.9 MEQ/L (3.5-5.1)
[2016-03-27] MEDS: ALBUTEROL SULFATE 2.5 MG/0.5 ML INH NEB SOLN INH SCH ×3 (08:00→19:01)
[2016-03-27] MEDS: SYMBICORT 160/4.5MCG INHALER 6GM INH SCH ×2 (08:17→21:23)
[2016-03-27] MEDS: TIOTROPIUM INHALER/CAPSULE (SPIRIVA) INH SCH (08:17)
[2016-03-27] MEDS: DRONABINOL 2.5 MG CAP (MARINOL) PO SCH ×3 (08:24→21:34)
[2016-03-27] MEDS: VITAMIN D 1,000 INTERNATIONAL UNITS TABLET PO SCH (08:24)
[2016-03-27] MEDS: **hydrALAZINE** 50 MG TAB PO SCH ×3 (08:24→21:36)
[2016-03-27] MEDS: LABETALOL 100 MG TAB PO SCH ×2 (08:24→21:35)
[2016-03-27] MEDS: FERROUS SULFATE 325MG TAB PO SCH ×2 (08:24→21:35)
[2016-03-27] MEDS: MIRALAX *UNIT DOSE* 17GM PACKET PO SCH (08:25)
[2016-03-27] MEDS: ASPIRIN 81 MG ENTERIC TAB PO SCH (08:25)
[2016-03-27] MEDS: amLODIPine 10 MG TAB PO SCH (08:25)
[2016-03-27] MEDS: CLOPIDOGREL 75 MG TAB PO SCH (08:25)
[2016-03-27] MEDS: HEPARIN SOD (PORCINE) 5000 UNITS/ML VIAL SQ SCH ×2 (08:25→21:34)
[2016-03-27] MEDS: cloNIDine 0.1 MG TAB PO SCH ×2 (08:25→21:35)
[2016-03-27] MEDS: PANTOPRAZOLE 40MG TAB (PROTONIX) PO SCH (08:26)
[2016-03-27] MEDS: ATORVASTATIN 20 MG TAB PO SCH (08:26)
[2016-03-27] MEDS: SENOKOT S TAB PO SCH ×2 (08:26→21:36)
[2016-03-27] MEDS: MULTIVITAMINS/MINERALS THERAP 1 TAB PO SCH (08:26)
[2016-03-27] MEDS: HumaLOG INSULIN (NovoLOG) PER UNIT SC SCH ×4 (08:26→21:00)
--- NOTE | 2016-03-27 09:18 | IPNPDOC ---
Date/Time Seen The patient was seen on 03/27/16 at 09:02. Progress Note DATE OF ENCOUNTER: 03/27/2016 SUBJECTIVE: Patient was seen this morning at bedside. No acute overnight events. He reports that he ate all of his breakfast this morning (pancakes and shepherd). Appetite seems to be slowly coming around with the addition of Marinol. He denies any nausea, vomiting, abdominal pain, diarrhea, chest pain or pressure , shortness of breath, headache, dizziness, fevers, chills. OBJECTIVE: Vital Signs Date Time Temp Pulse Resp B/P Pulse Ox O2 Delivery O2 Flow Rate FiO2 03/27/16 08:25 81 180/84 03/27/16 06:10 97.9 17 96 Nasal Cannula 3.0 I&O- Last 24 Hours up to 6 AM 03/27/16 06:00 Intake Total 1090 ml Output Total 1825 ml Balance -735 ml GENERAL: Patient alert and oriented, in no acute distress. HEENT: Normocephalic, atraumatic. Extraocular movements intact. Moist mucosa. NECK: Supple. Jugular veins are not significantly elevated. HEART: Normal S1, S2. Regular rate and rhythm. I did not appreciate a murmur. LUNGS: Diminished breath sounds. Faint crackles in right lower base. No rhonchi or wheezing appreciated. ABDOMEN: Abdomen is soft. Nontender to palpation. Bowel sounds are present. No rebound, guarding or rigidity. EXTREMITIES: No cyanosis or significant lower extremity edema. Positive pedal pulses bilaterally. NEUROLOGIC: No focal deficits. LABORATORY DATA: 03/27/16 06:25 ASSESSMENT AND PLAN: Mr. Snyder is a 75 year old male with past medical history significant for chronic kidney disease stage III, diastolic heart failure, chronic lung disease from occupational exposure with 3 L home O2, hypertension, gout, coronary artery disease with history of MA, diabetes mellitus type 2, hyperlipidemia, BPH, history of GI bleed and gastritis and sleep apnea not on CPAP who presented due to hypoglycemia, found to be in acute on chronic renal failure with partial small bowel obstruction. 1. Acute on chronic kidney disease stage III. It appears that his creatinine has bumped up a little. The recovery of his renal function seems to be a very slow process, but given that there are no acute indications for hemodialysis, we will continue to monitor it. His GFR remains less than 20 and at this point, given his comorbidities, it may be likely that his renal function does not return to baseline, which is around 2.0. This will continue to be monitored while he is here, but he will need to followup closely as an outpatient as well. 2. Chronic diastolic heart failure. He takes Lasix and hydrochlorothiazide at home, both of which have been held on admission due to acute kidney injury. Volume status is stable. 3. Hypertension. Blood pressure is suboptimal. He is on Norvasc 10mg daily, labetalol 300mg BID, Isordil 20mg TID, hydralazine 50mg TID, clonidine 0.1 BID and terazosin 5mg qhs. Hydrochlorothiazide, Lasix and losartan were held on admission secondary to acute kidney injury. Given his renal function, these medications cannot be resumed. 4. Anemia in chronic kidney disease. He received 1 unit of pRBCs yesterday. Hemoglobin stable at 8.6. No signs of acute bleeding. He remains on ferrous sulfate. 5. Gastric distention status post ileus/partial small bowel obstruction. Per surgery, gastric distention is due to aerophagia. Being managed by primary team. 6. Deconditioning. Patient would benefit from physical therapy and possibly short term rehab given his deconditioning. GME ATTESTATION GME ATTESTATION My preceptor for this patient encounter was physically present in the building during the encounter and was fully available. As needed, all aspects of the patient interview, examination, medical decision making process, and medical care plan development were reviewed and approved by the preceptor. Preceptor is aware and concurs with the plan as stated in the body of this note and will attest to such by his/her cosignature. JAKOB ARRIAZA DO Mar 27, 2016 09:18
--- NOTE | 2016-03-27 12:03 | IPNPDOC ---
Assessment/Plan Date Seen The patient was seen on 03/27/16. Problems Problems: (1) Ileus Status: Resolved Response to Treatment: Stable Problem Text: Tolerating regular diet well and passing bowel movements and flatus without any issues Surgical consultation noted from earlier in the admission We will continue to monitor his progress (2) Acute kidney injury superimposed on CKD Status: Acute Response to Treatment: Improving Problem Text: Patient's serum creatinine down trending around 3.5 at this time , baseline around 2 Initially thought to be secondary to prerenal azotemia as the patient did present with diarrhea Possibly secondary to underlying abdominal distention from ileus vs ?Small bowel obstruction Ultrasound of the kidneys ordered-notable for medical renal disease Nephrotoxins held Electrolytes stable Nephrology on board (3) Diastolic CHF Status: Chronic Response to Treatment: Stable Problem Text: Currently appears clinically compensated Diuretic therapy as per Nephro (4) Occupational lung disease Status: Chronic Problem Text: Continue on albuterol, Symbicort, tiotropium (5) Diabetes Status: Chronic Problem Text: Continue on insulin sliding scale (6) Chronic anemia Status: Chronic Problem Text: Hemoglobin noted to be 7.8 today No active bleeding noted We'll transfuse 1 unit of packed red blood cells Continue with ferrous sulfate therapy (7) Obesity Status: Chronic (8) ANKITA (obstructive sleep apnea) Status: Chronic (9) Gait instability Status: Chronic Problem Text: Physical therapy ordered (10) CAD in [place] artery Status: Chronic Problem Text: Continue aspirin, nel, simvastatin (11) Hypertension Status: Chronic Response to Treatment: Stable Problem Text: Continue current anti-hypertensive regimen. (12) Protein calorie malnutrition Status: Acute Problem Text: The patient has been having poor oral intake, and Marinol was added Calories count in affect, the patient did eat 50% of his lunch today The possibility of PEG tube was discussed with the patient and his family at the bedside given the patient's lack of appetite and poor oral intake Patient states that he would like to try to increase his oral intake at this time. We will continue to monitor his progress Plan / VTE VTE Prophylaxis Ordered?: Yes Subjective Review of Systems CC/HPI The patient is a 75-year-old male admitted with a reason for visit of Liban ( Acute Kidney Injury). General: Denies: Chills, Night Sweats Constitutional: Denies: Chills, Fever Eyes: Denies: Pain, Vision change ENT: Denies: Ear Pain, Head Aches Skin: Denies: Lesions, Rash Pulmonary: Denies: Cough, Dyspnea Cardiovascular: Denies: Chest Pain, Palpitations Gastrointestinal: Denies: Nausea, Vomiting Hematologic: Denies: Bleeding Excessively, Bruising Objective Physical Examination General Exam: Positive: Alert, Cooperative, No Acute Distress ENT Exam: Positive: Atraumatic, Mucous membr. moist/pink Chest Exam: Positive: Clear to auscultation, Diminished, Normal air movement, Negative: Rales Heart Exam: Positive: Normal S1, Normal S2, Rate Normal Abdomen Exam: Positive: Other (mildly distended), Soft, Negative: Hepatospenomegaly, Tenderness Extremity Exam: Negative: Tenderness Vital Signs/I&O Vital Signs Date Time Temp Pulse Resp B/P Pulse Ox O2 Delivery O2 Flow Rate FiO2 03/27/16 08:25 81 180/84 03/27/16 06:10 97.9 17 96 Nasal Cannula 3.0 I&O- Last 24 Hours up to 6 AM 03/27/16 06:00 Intake Total 1090 ml Output Total 1825 ml Balance -735 ml Laboratory Data Labs 24H Laboratory Tests 2 03/26/16 17:11: Bedside Glucose (Misc Panel) 190H 03/26/16 19:34: Bedside Glucose (Misc Panel) 234H 03/27/16 05:54: Bedside Glucose (Misc Panel) 155H 03/27/16 06:25: Albumin 2.4L, Blood Urea Nitrogen 67H, Creatinine 3.55H, Sodium Level 139, Potassium Level 4.9, Chloride Level 100, Carbon Dioxide Level 31, Anion Gap 8, Calcium Level 8.9, Glomerular Filtration Rate 17.9L, Phosphorus Level 4.8 03/27/16 11:53: CBC/BMP Laboratory Tests 03/27/16 06:25 Anion Gap 8, Red Blood Count 3.18 L, Mean Corpuscular Volume 84.4, Mean Corpuscular Hemoglobin 27.2, Mean Corpuscular Hemoglobin Concent 32.2, Red Cell Distribution Width 15.0 H FSBS Laboratory Tests Test 03/26/16 17:11 03/26/16 19:34 03/27/16 05:54 03/27/16 11:53 Range/Units Bedside Glucose (Misc Panel) 190 234 155 83-110 MG/DL Microbiology Microbiology 03/20/16 MRSA Screen - Final, Complete MARY PEOPLES MD Mar 27, 2016 12:03
[2016-03-27 14:00] VITALS: BP 159/78
[2016-03-27] MEDS: TERAZOSIN 5 MG CAP PO SCH (21:34)
[2016-03-27] MEDS: hydrOXYzine 50 MG TAB PO SCH (21:35)
[2016-03-27 22:00] VITALS: BP 159/72
[2016-03-28] MEDS: ISOSORBIDE DIN. (ISORDIL) 20 MG TAB PO SCH ×3 (05:47→17:52)
[2016-03-28 06:00] VITALS: BP 171/80
[2016-03-28 06:56] LABS: MEAN CORPUSCULAR HEMOGLOBIN 26.3 pg (27.0-33.0); MEAN CORPUSCULAR HGB CONC 30.3 g/dl (32.0-36.5); MEAN CORPUSCULAR VOLUME 86.7 fl (80.0-96.0); RED CELL DISTRIBUTION WIDTH 16.1 % (11.5-14.5); WHITE BLOOD COUNT 11.2 K/mm3 (4.0-10.0)
[2016-03-28] MEDS: TIOTROPIUM INHALER/CAPSULE (SPIRIVA) INH SCH (07:12)
[2016-03-28] MEDS: ALBUTEROL SULFATE 2.5 MG/0.5 ML INH NEB SOLN INH SCH ×3 (07:13→19:49)
[2016-03-28] MEDS: SYMBICORT 160/4.5MCG INHALER 6GM INH SCH ×2 (07:13→19:48)
[2016-03-28] MEDS: HumaLOG INSULIN (NovoLOG) PER UNIT SC SCH ×4 (07:41→21:00)
[2016-03-28 07:54] LABS: ALBUMIN 2.4 GM/DL (3.2-5.2); CREATININE FOR GFR 3.73 MG/DL (0.70-1.30); GLOMERULAR FILTRATION RATE 16.9 (>42); PHOSPHORUS LEVEL 5.3 MG/DL (2.5-4.9)
[2016-03-28 08:03] LABS: POTASSIUM SERUM 5.2 MEQ/L (3.5-5.1)
[2016-03-28] MEDS: ATORVASTATIN 20 MG TAB PO SCH (09:29)
[2016-03-28] MEDS: FERROUS SULFATE 325MG TAB PO SCH ×2 (09:29→21:40)
[2016-03-28] MEDS: MULTIVITAMINS/MINERALS THERAP 1 TAB PO SCH (09:29)
[2016-03-28] MEDS: PANTOPRAZOLE 40MG TAB (PROTONIX) PO SCH (09:29)
[2016-03-28] MEDS: DRONABINOL 2.5 MG CAP (MARINOL) PO SCH ×3 (09:30→21:40)
[2016-03-28] MEDS: **hydrALAZINE** 50 MG TAB PO SCH ×3 (09:31→21:40)
[2016-03-28] MEDS: SENOKOT S TAB PO SCH ×2 (09:31→21:39)
[2016-03-28] MEDS: ASPIRIN 81 MG ENTERIC TAB PO SCH (09:32)
[2016-03-28] MEDS: CLOPIDOGREL 75 MG TAB PO SCH (09:32)
[2016-03-28] MEDS: LABETALOL 100 MG TAB PO SCH ×2 (09:32→21:39)
[2016-03-28] MEDS: amLODIPine 10 MG TAB PO SCH (09:32)
[2016-03-28] MEDS: cloNIDine 0.1 MG TAB PO SCH ×2 (09:33→21:39)
[2016-03-28] MEDS: MIRALAX *UNIT DOSE* 17GM PACKET PO SCH (09:34)
[2016-03-28] MEDS: HEPARIN SOD (PORCINE) 5000 UNITS/ML VIAL SQ SCH ×2 (09:34→21:40)
[2016-03-28] MEDS: VITAMIN D 1,000 INTERNATIONAL UNITS TABLET PO SCH (09:34)
[2016-03-28] MEDS: LR 1,000 ML IV SCH ×2 (10:45→21:40)
--- NOTE | 2016-03-28 13:16 | IPNPDOC ---
Date/Time Seen The patient was seen on 03/28/16 at 13:05. Progress Note DATE OF ENCOUNTER: 03/28/2016 SUBJECTIVE: Patient was seen this morning at bedside. No acute overnight events. Appetite remains suboptimal. He stated at the pancakes were too rough and he requested something else for breakfast. He states that he sat up at the edge of the bed yesterday, but no other significant physical activity. He denies any nausea, vomiting, abdominal pain, diarrhea, chest pain or pressure, shortness of breath, headache, dizziness, fevers, chills. OBJECTIVE: Vital Signs Date Time Temp Pulse Resp B/P Pulse Ox O2 Delivery O2 Flow Rate FiO2 03/28/16 12:39 166/75 03/28/16 06:00 97.8 74 14 99 Nasal Cannula 3.0 I&O- Last 24 Hours up to 6 AM 03/28/16 06:00 Intake Total 1500 ml Output Total 1950 ml Balance -450 ml GENERAL: Patient alert and oriented, in no acute distress. HEENT: Normocephalic, atraumatic. Extraocular movements intact. Moist mucosa. NECK: Supple. Jugular veins are not significantly elevated. HEART: Normal S1, S2. Regular rate and rhythm. I did not appreciate a murmur. LUNGS: Diminished breath sounds. No rhonchi or wheezing appreciated. ABDOMEN: Abdomen is soft. Nontender to palpation. Bowel sounds are present. No rebound, guarding or rigidity. EXTREMITIES: No cyanosis or significant lower extremity edema. Positive pedal pulses bilaterally. NEUROLOGIC: No focal deficits. LABORATORY DATA: 03/28/16 06:33 ASSESSMENT AND PLAN: Mr. Snyder is a 75 year old male with past medical history significant for chronic kidney disease stage III, diastolic heart failure, chronic lung disease from occupational exposure with 3 L home O2, hypertension, gout, coronary artery disease with history of ID, diabetes mellitus type 2, hyperlipidemia, BPH, history of GI bleed and gastritis and sleep apnea not on CPAP who presented due to hypoglycemia, found to be in acute on chronic renal failure with partial small bowel obstruction. 1. Acute on chronic kidney disease stage III. Creatinine appears to be worsening. He has developed hyperkalemia and his sodium has bumped up a little bit. It appears that he may be getting dry due to his poor oral intake. We'll initiate Lactated Ringer's at a rate of 75 mL/h. IV hydration should hopefully improve these numbers. No acute indication for hemodialysis. His renal function will continue to be monitored, he has a baseline around 2.0. Given his comorbidities, it is unknown if his renal function will return to his baseline. 2. Hyperkalemia. Potassium was slightly elevated at 5.2. We will hydrate him and continue to monitor his electrolytes. No other intervention is needed at this time. 3. Chronic diastolic heart failure. He takes Lasix and hydrochlorothiazide at home, both of which have been held on admission due to acute kidney injury. Volume status is stable. 4. Hypertension. Continue current medications which include Norvasc 10mg daily, labetalol 300mg BID, Isordil 20mg TID, hydralazine 50mg TID, clonidine 0.1 BID and terazosin 5mg qhs. Hydrochlorothiazide, Lasix and losartan were held on admission secondary to acute kidney injury. Given his renal function, these medications cannot be resumed. 5. Anemia in chronic kidney disease. He received 1 unit of pRBCs on 03/26. Hemoglobin is currently 8.3. No signs of acute bleeding. If it continues to trend downwards, another transfusion may be necessary. He remains on ferrous sulfate. He seems to be moving his bowels regularly being on ferrous sulfate. 6. Gastric distention status post ileus/partial small bowel obstruction. Per surgery, gastric distention is due to aerophagia. Being managed by primary team. 7. Deconditioning. Patient would benefit from physical therapy and possibly short term rehab given his deconditioning. GME ATTESTATION E ATTESTATION My preceptor for this patient encounter was physically present in the building during the encounter and was fully available. As needed, all aspects of the patient interview, examination, medical decision making process, and medical care plan development were reviewed and approved by the preceptor. Preceptor is aware and concurs with the plan as stated in the body of this note and will attest to such by his/her cosignature. JAKOB ARRIAZA DO Mar 28, 2016 13:16
--- NOTE | 2016-03-28 13:37 | IPNPDOC ---
Assessment/Plan Date Seen The patient was seen on 03/28/16. Problems Problems: (1) Ileus Status: Resolved Response to Treatment: Stable Problem Text: Tolerating regular diet well and passing bowel movements and flatus without any issues Surgical consultation noted from earlier in the admission We will continue to monitor his progress (2) Acute kidney injury superimposed on CKD Status: Acute Response to Treatment: Improving Problem Text: Patient's serum creatinine down trending around 3.5 at this time , baseline around 2 Initially thought to be secondary to prerenal azotemia as the patient did present with diarrhea Possibly secondary to underlying abdominal distention from ileus vs ?Small bowel obstruction Ultrasound of the kidneys ordered-notable for medical renal disease Nephrotoxins held Electrolytes stable Nephrology on board (3) Diastolic CHF Status: Chronic Response to Treatment: Stable Problem Text: Currently appears clinically compensated Diuretic therapy as per Nephro (4) Occupational lung disease Status: Chronic Problem Text: Continue on albuterol, Symbicort, tiotropium (5) Diabetes Status: Chronic Problem Text: Continue on insulin sliding scale (6) Chronic anemia Status: Chronic Problem Text: Hemoglobin noted to be 7.8 today No active bleeding noted We'll transfuse 1 unit of packed red blood cells Continue with ferrous sulfate therapy (7) Obesity Status: Chronic (8) ANKITA (obstructive sleep apnea) Status: Chronic (9) Gait instability Status: Chronic Problem Text: Physical therapy ordered (10) CAD in [place] artery Status: Chronic Problem Text: Continue aspirin, nel, simvastatin (11) Hypertension Status: Chronic Response to Treatment: Stable Problem Text: Continue current anti-hypertensive regimen. (12) Protein calorie malnutrition Status: Acute Problem Text: The patient has been having poor oral intake, and Marinol was added Calories count in affect, the patient did eat 50% of his lunch today The possibility of PEG tube was discussed with the patient and his family at the bedside given the patient's lack of appetite and poor oral intake Patient states that he would like to try to increase his oral intake at this time. We will continue to monitor his progress Plan / VTE VTE Prophylaxis Ordered?: Yes Subjective Review of Systems CC/HPI The patient is a 75-year-old male admitted with a reason for visit of Liban ( Acute Kidney Injury). General: Denies: Chills, Night Sweats Constitutional: Denies: Chills, Fever Eyes: Denies: Pain, Vision change ENT: Denies: Ear Pain, Head Aches Pulmonary: Denies: Cough, Dyspnea Cardiovascular: Denies: Chest Pain, Palpitations Gastrointestinal: Denies: Abdominal Pain, Nausea, Vomiting Hematologic: Denies: Bleeding Excessively, Bruising Objective Physical Examination General Exam: Positive: Alert, Cooperative, No Acute Distress ENT Exam: Positive: Atraumatic, Mucous membr. moist/pink Chest Exam: Positive: Clear to auscultation, Diminished, Normal air movement, Negative: Rales Heart Exam: Positive: Normal S1, Normal S2, Rate Normal Abdomen Exam: Positive: Other (mildly distended), Soft, Negative: Hepatospenomegaly, Tenderness Extremity Exam: Negative: Tenderness Vital Signs/I&O Vital Signs Date Time Temp Pulse Resp B/P Pulse Ox O2 Delivery O2 Flow Rate FiO2 03/28/16 12:39 166/75 03/28/16 06:00 97.8 74 14 99 Nasal Cannula 3.0 I&O- Last 24 Hours up to 6 AM 03/28/16 06:00 Intake Total 1500 ml Output Total 1950 ml Balance -450 ml Laboratory Data Labs 24H Laboratory Tests 2 03/27/16 17:01: Bedside Glucose (Misc Panel) 210H 03/27/16 20:18: Bedside Glucose (Misc Panel) 214H 03/28/16 06:33: Albumin 2.4L, Blood Urea Nitrogen 66H, Creatinine 3.73H, Sodium Level 142, Potassium Level 5.2H, Chloride Level 103, Carbon Dioxide Level 29, Anion Gap 10 , Calcium Level 9.0, Glomerular Filtration Rate 16.9L, Phosphorus Level 5.3H 03/28/16 06:36: Bedside Glucose (Misc Panel) 168H 03/28/16 11:51: Bedside Glucose (Misc Panel) 213H CBC/BMP Laboratory Tests 03/28/16 06:33 Anion Gap 10, Red Blood Count 3.16 L, Mean Corpuscular Volume 86.7, Mean Corpuscular Hemoglobin 26.3 L, Mean Corpuscular Hemoglobin Concent 30.3 L, Red Cell Distribution Width 16.1 H FSBS Laboratory Tests Test 03/27/16 17:01 03/27/16 20:18 03/28/16 06:36 03/28/16 11:51 Range/Units Bedside Glucose (Misc Panel) 210 214 168 213 83-110 MG/DL Microbiology Microbiology 1/18/17 MRSA Screen - Final, Complete MARY PEOPLES MD Mar 28, 2016 13:37
[2016-03-28 14:00] VITALS: BP 151/70
[2016-03-28] MEDS: TERAZOSIN 5 MG CAP PO SCH (21:39)
[2016-03-28] MEDS: hydrOXYzine 50 MG TAB PO SCH (21:40)
[2016-03-28 22:00] VITALS: BP 173/78
[2016-03-29 06:00] VITALS: BP 166/80
[2016-03-29] MEDS: ISOSORBIDE DIN. (ISORDIL) 20 MG TAB PO SCH ×3 (06:11→18:09)
[2016-03-29 07:01] LABS: ALBUMIN 2.3 GM/DL (3.2-5.2); CALCIUM LEVEL 9.2 MG/DL (8.8-10.2); CREATININE FOR GFR 3.51 MG/DL (0.70-1.30); GLOMERULAR FILTRATION RATE 18.1 (>42); PHOSPHORUS LEVEL 5.3 MG/DL (2.5-4.9); POTASSIUM SERUM 4.7 MEQ/L (3.5-5.1)
[2016-03-29] MEDS: TIOTROPIUM INHALER/CAPSULE (SPIRIVA) INH SCH (07:10)
[2016-03-29] MEDS: SYMBICORT 160/4.5MCG INHALER 6GM INH SCH ×2 (07:11→20:14)
[2016-03-29] MEDS: ALBUTEROL SULFATE 2.5 MG/0.5 ML INH NEB SOLN INH SCH ×3 (07:11→20:00)
[2016-03-29 08:26] LABS: MEAN CORPUSCULAR HEMOGLOBIN 27.4 pg (27.0-33.0); MEAN CORPUSCULAR HGB CONC 31.4 g/dl (32.0-36.5); MEAN CORPUSCULAR VOLUME 87.2 fl (80.0-96.0)
[2016-03-29] MEDS: HEPARIN SOD (PORCINE) 5000 UNITS/ML VIAL SQ SCH ×2 (08:26→21:24)
[2016-03-29] MEDS: HumaLOG INSULIN (NovoLOG) PER UNIT SC SCH ×4 (08:26→21:00)
[2016-03-29] MEDS: VITAMIN D 1,000 INTERNATIONAL UNITS TABLET PO SCH (08:27)
[2016-03-29] MEDS: LABETALOL 100 MG TAB PO SCH ×2 (08:27→21:24)
[2016-03-29] MEDS: SENOKOT S TAB PO SCH ×2 (08:27→21:24)
[2016-03-29] MEDS: cloNIDine 0.1 MG TAB PO SCH ×2 (08:28→21:25)
[2016-03-29] MEDS: amLODIPine 10 MG TAB PO SCH (08:28)
[2016-03-29] MEDS: **hydrALAZINE** 50 MG TAB PO SCH ×3 (08:28→21:24)
[2016-03-29] MEDS: ATORVASTATIN 20 MG TAB PO SCH (08:28)
[2016-03-29] MEDS: CLOPIDOGREL 75 MG TAB PO SCH (08:28)
[2016-03-29] MEDS: MULTIVITAMINS/MINERALS THERAP 1 TAB PO SCH (08:28)
[2016-03-29] MEDS: ASPIRIN 81 MG ENTERIC TAB PO SCH (08:28)
[2016-03-29] MEDS: PANTOPRAZOLE 40MG TAB (PROTONIX) PO SCH (08:28)
[2016-03-29] MEDS: MIRALAX *UNIT DOSE* 17GM PACKET PO SCH (08:28)
[2016-03-29] MEDS: DRONABINOL 2.5 MG CAP (MARINOL) PO SCH ×3 (08:28→21:25)
[2016-03-29] MEDS: FERROUS SULFATE 325MG TAB PO SCH ×2 (08:28→21:25)
--- NOTE | 2016-03-29 09:04 | IPNPDOC ---
Date/Time Seen The patient was seen on 03/29/16 at 08:54. Progress Note DATE OF ENCOUNTER: 03/29/2016 SUBJECTIVE: Patient was seen this morning at bedside. No acute overnight events. He feels that his appetite is improving. He ate all his breakfast this morning. Stated he faired well with his lunch and dinner yesterday. He ambulates to the commode three times and sat in the chair twice yesterday. He denies any nausea, vomiting, abdominal pain, diarrhea, chest pain or pressure, shortness of breath, headache, dizziness, fevers, chills. OBJECTIVE: Vital Signs Date Time Temp Pulse Resp B/P Pulse Ox O2 Delivery O2 Flow Rate FiO2 03/29/16 08:27 81 174/66 03/29/16 06:00 96.5 18 100 Nasal Cannula 3.0 I&O- Last 24 Hours up to 6 AM 03/29/16 06:00 Intake Total 2930 ml Output Total 1050 ml Balance 1880 ml GENERAL: Patient alert and oriented, in no acute distress. HEENT: Normocephalic, atraumatic. Extraocular movements intact. Moist mucosa. NECK: Supple. Jugular veins are not significantly elevated. HEART: Normal S1, S2. Regular rate and rhythm. I did not appreciate a murmur. LUNGS: Good air movement bilaterally. Crackles heard on the right lower base. ABDOMEN: Abdomen is soft. Nontender to palpation. Bowel sounds are present. No rebound, guarding or rigidity. EXTREMITIES: Trace ankle edema. No cyanosis. Positive pedal pulses bilaterally. NEUROLOGIC: No focal deficits. LABORATORY DATA: 03/29/16 06:15 03/29/16 06:20 ASSESSMENT AND PLAN: Mr. Snyder is a 75 year old male with past medical history significant for chronic kidney disease stage III, diastolic heart failure, chronic lung disease from occupational exposure with 3 L home O2, hypertension, gout, coronary artery disease with history of [place], diabetes mellitus type 2, hyperlipidemia, BPH, history of GI bleed and gastritis and sleep apnea not on CPAP who presented due to hypoglycemia, found to be in acute on chronic renal failure with partial small bowel obstruction. 1. Acute on chronic kidney disease stage III, baseline creatinine of 2.0. Creatinine has slightly improved with the addition of Lactated Ringer's. His appetite is still not the greatest. Pratt will be inserted and we will obtain a 24 hour creatinine clearance to assess his true renal function. Given the lack of significant improvement, we may need to discuss the possibility of dialysis, although very reluctant to do so given his age and comorbidities. We will reassess after creatinine clearance has been obtained. 2. Hyperkalemia, resolved with IV hydration. No other intervention needed at this time. 3. Hyperphosphatemia, secondary to renal disease. No phosphate binder at this time, as this will constipate him. 4. Chronic diastolic heart failure. He takes Lasix and hydrochlorothiazide at home, both of which have been held on admission due to acute kidney injury. Volume status is stable. 5. Hypertension. Continue current medications which include Norvasc 10mg daily, labetalol 300mg BID, Isordil 20mg TID, hydralazine 50mg TID, clonidine 0.1 BID and terazosin 5mg qhs. Hydrochlorothiazide, Lasix and losartan were held on admission secondary to acute kidney injury. Given his renal function, these medications cannot be resumed. 6. Anemia in chronic kidney disease. He received 1 unit of pRBCs on 03/26. Hemoglobin is currently 8.4. No signs of acute bleeding. If it continues to trend downwards, another transfusion may be necessary. He remains on ferrous sulfate. He seems to be moving his bowels regularly. 7. Gastric distention status post ileus/partial small bowel obstruction. Per surgery, gastric distention is due to aerophagia. Increased oral intake encouraged. Being managed by primary team. 8. Deconditioning. Patient would benefit from physical therapy given his deconditioning. GME ATTESTATION GME ATTESTATION My preceptor for this patient encounter was physically present in the building during the encounter and was fully available. As needed, all aspects of the patient interview, examination, medical decision making process, and medical care plan development were reviewed and approved by the preceptor. Preceptor is aware and concurs with the plan as stated in the body of this note and will attest to such by his/her cosignature. JAKOB ARRIAZA DO Mar 29, 2016 09:04
[2016-03-29 11:15] VITALS: BP 177/78
[2016-03-29] MEDS: LR 1,000 ML IV SCH (12:31)
[2016-03-29 14:00] VITALS: BP 169/79
--- NOTE | 2016-03-29 15:31 | IPNPDOC ---
Assessment/Plan Date Seen The patient was seen on 03/29/16. Problems Problems: (1) Ileus Status: Resolved Response to Treatment: Stable Problem Text: Tolerating regular diet well and passing bowel movements and flatus without any issues Surgical consultation noted from earlier in the admission We will continue to monitor his progress (2) Acute kidney injury superimposed on CKD Status: Acute Response to Treatment: Improving Problem Text: Patient's serum creatinine down trending around 3.5 at this time , baseline around 2 Initially thought to be secondary to prerenal azotemia as the patient did present with diarrhea Possibly secondary to underlying abdominal distention from ileus vs ?Small bowel obstruction Ultrasound of the kidneys ordered-notable for medical renal disease Nephrotoxins held Electrolytes stable Nephrology on board (3) Diastolic CHF Status: Chronic Response to Treatment: Stable Problem Text: Currently appears clinically compensated Diuretic therapy as per Nephro (4) Occupational lung disease Status: Chronic Problem Text: Continue on albuterol, Symbicort, tiotropium (5) Diabetes Status: Chronic Problem Text: Continue on insulin sliding scale (6) Chronic anemia Status: Chronic Problem Text: Hemoglobin noted to be 7.8 today No active bleeding noted We'll transfuse 1 unit of packed red blood cells Continue with ferrous sulfate therapy (7) Obesity Status: Chronic (8) ANKITA (obstructive sleep apnea) Status: Chronic (9) Gait instability Status: Chronic Problem Text: Physical therapy ordered (10) CAD in [place] artery Status: Chronic Problem Text: Continue aspirin, nel, simvastatin (11) Hypertension Status: Chronic Response to Treatment: Stable Problem Text: Continue current anti-hypertensive regimen. (12) Protein calorie malnutrition Status: Acute Problem Text: The patient has been having poor oral intake, and Marinol was added Calories count in affect, the patient did eat 50% of his lunch today The possibility of PEG tube was discussed with the patient and his family at the bedside given the patient's lack of appetite and poor oral intake Patient states that he would like to try to increase his oral intake at this time. We will continue to monitor his progress Plan / VTE VTE Prophylaxis Ordered?: Yes Plan / Urinary Catheter Reason for insertion/continuin: Critical Pt monitoring Plan Plan Text Pending placement Subjective Review of Systems CC/HPI The patient is a 75-year-old male admitted with a reason for visit of Liban ( Acute Kidney Injury). General: Denies: Chills, Night Sweats Constitutional: Denies: Chills, Fever Eyes: Denies: Pain, Vision change ENT: Denies: Ear Pain, Head Aches Skin: Denies: Lesions, Rash Pulmonary: Denies: Cough, Dyspnea Cardiovascular: Denies: Chest Pain, Palpitations Gastrointestinal: Denies: Nausea, Vomiting Genitourinary: Denies: Dysuria, Frequency Hematologic: Denies: Bleeding Excessively, Bruising Objective Physical Examination General Exam: Positive: Alert, Cooperative, No Acute Distress ENT Exam: Positive: Atraumatic, Mucous membr. moist/pink Chest Exam: Positive: Clear to auscultation, Diminished, Normal air movement, Negative: Rales Heart Exam: Positive: Normal S1, Normal S2, Rate Normal Abdomen Exam: Positive: Other (mildly distended), Soft, Negative: Hepatospenomegaly, Tenderness Extremity Exam: Negative: Tenderness Vital Signs/I&O Vital Signs Date Time Temp Pulse Resp B/P Pulse Ox O2 Delivery O2 Flow Rate FiO2 03/29/16 12:31 150/68 03/29/16 11:36 Nasal Cannula 3.0 03/29/16 11:15 95.5 72 16 98 I&O- Last 24 Hours up to 6 AM 03/29/16 06:00 Intake Total 2930 ml Output Total 1050 ml Balance 1880 ml Laboratory Data Labs 24H Laboratory Tests 2 03/28/16 16:52: Bedside Glucose (Misc Panel) 186H 03/28/16 20:21: Bedside Glucose (Misc Panel) 233H 03/29/16 06:20: Albumin 2.3L, Blood Urea Nitrogen 59H, Creatinine 3.51H, Sodium Level 141, Potassium Level 4.7, Chloride Level 102, Carbon Dioxide Level 30, Anion Gap 9, Calcium Level 9.2, Glomerular Filtration Rate 18.1L, Phosphorus Level 5.3H 03/29/16 07:23: Bedside Glucose (Misc Panel) 168H 03/29/16 12:03: Bedside Glucose (Misc Panel) 234H CBC/BMP Laboratory Tests 03/29/16 06:15 Red Blood Count 3.09 L, Mean Corpuscular Volume 87.2, Mean Corpuscular Hemoglobin 27.4, Mean Corpuscular Hemoglobin Concent 31.4 L, Red Cell Distribution Width 15.0 H 03/29/16 06:20 Anion Gap 9 FSBS Laboratory Tests Test 03/28/16 16:52 03/28/16 20:21 03/29/16 07:23 03/29/16 12:03 Range/Units Bedside Glucose (Misc Panel) 186 233 168 234 83-110 MG/DL Microbiology Microbiology 03/20/16 MRSA Screen - Final, Complete MARY PEOPLES MD Mar 29, 2016 15:31
[2016-03-29 20:12] VITALS: O2SAT 97
[2016-03-29] MEDS: TERAZOSIN 5 MG CAP PO SCH (21:25)
[2016-03-29] MEDS: hydrOXYzine 50 MG TAB PO SCH (21:25)
[2016-03-29 22:00] VITALS: BP 172/76
[2016-03-30] MEDS: LR 1,000 ML IV SCH (02:22)
[2016-03-30] MEDS: ALBUTEROL SULFATE 2.5 MG/0.5 ML INH NEB SOLN NEB PRN ×3 (04:32→23:48)
[2016-03-30] MEDS ORDERED: FUROSEMIDE 40 MG/4 ML VIAL (J1940) IV ONE ×2 (05:15→10:45)
[2016-03-30 06:00] VITALS: BP 178/72
[2016-03-30 06:04] LABS: ABG BASE EXCESS -0.3 (-2.0-2.0); ABG HCO3 27.4 MEQ/L (22.0-26.0); ABG PARTIAL PRESSURE O2 69.6 mmHg (75.0-100.0); ABG STANDARD HCO3 24.2 MEQ/L (22.0-26.0); ABG TOTAL CO2 29.3 MEQ/L (23.0-31.0); ABG pH (ARTERIAL) 7.271 UNITS (7.350-7.450)
[2016-03-30 06:07] LABS: ABG PARTIAL PRESSURE CO2 60.9 mmHg (35.0-45.0)
[2016-03-30 06:46] LABS: ALBUMIN 2.8 GM/DL (3.2-5.2); CALCIUM LEVEL 8.9 MG/DL (8.8-10.2); CREATININE FOR GFR 3.37 MG/DL (0.70-1.30); PHOSPHORUS LEVEL 5.5 MG/DL (2.5-4.9)
[2016-03-30] MEDS: ISOSORBIDE DIN. (ISORDIL) 20 MG TAB PO SCH ×3 (07:00→17:49)
[2016-03-30] MEDS: TIOTROPIUM INHALER/CAPSULE (SPIRIVA) INH SCH (07:12)
[2016-03-30] MEDS: SYMBICORT 160/4.5MCG INHALER 6GM INH SCH ×2 (07:12→19:38)
[2016-03-30] MEDS: ALBUTEROL SULFATE 2.5 MG/0.5 ML INH NEB SOLN INH SCH ×3 (07:20→19:38)
[2016-03-30] MEDS: HumaLOG INSULIN (NovoLOG) PER UNIT SC SCH ×4 (07:30→21:00)
[2016-03-30] MEDS: cloNIDine 0.1 MG TAB PO SCH ×2 (11:44→22:25)
[2016-03-30] MEDS: **hydrALAZINE** 50 MG TAB PO SCH ×3 (11:44→22:27)
[2016-03-30] MEDS: ATORVASTATIN 20 MG TAB PO SCH (11:45)
[2016-03-30] MEDS: DRONABINOL 2.5 MG CAP (MARINOL) PO SCH ×3 (11:45→22:27)
[2016-03-30] MEDS: MIRALAX *UNIT DOSE* 17GM PACKET PO SCH (11:45)
[2016-03-30] MEDS: ASPIRIN 81 MG ENTERIC TAB PO SCH (11:45)
[2016-03-30] MEDS: amLODIPine 10 MG TAB PO SCH (11:46)
[2016-03-30] MEDS: CLOPIDOGREL 75 MG TAB PO SCH (11:46)
[2016-03-30] MEDS: VITAMIN D 1,000 INTERNATIONAL UNITS TABLET PO SCH (11:47)
[2016-03-30] MEDS: SENOKOT S TAB PO SCH ×2 (11:47→22:25)
[2016-03-30] MEDS: MULTIVITAMINS/MINERALS THERAP 1 TAB PO SCH (11:49)
[2016-03-30] MEDS: PANTOPRAZOLE 40MG TAB (PROTONIX) PO SCH (11:50)
[2016-03-30] MEDS: LABETALOL 100 MG TAB PO SCH ×2 (11:57→22:28)
[2016-03-30] MEDS: FERROUS SULFATE 325MG TAB PO SCH ×2 (11:57→22:28)
[2016-03-30] MEDS: HEPARIN SOD (PORCINE) 5000 UNITS/ML VIAL SQ SCH ×2 (11:59→22:28)
--- NOTE | 2016-03-30 12:07 | IPNPDOC ---
Date/Time Seen The patient was seen on 03/30/16 at 11:40. Progress Note DATE OF ENCOUNTER: 03/30/2016 SUBJECTIVE: Patient was seen this morning at bedside. He stated around 3 in the morning, he began to have some difficulty breathing. He denied any chest pain. No other symptoms apart from the difficulty with breathing. His supplemental oxygen was increased. He had a chest x-ray which did show some pulmonary edema. He received a dose of Lasix early this morning and has reported that he is starting to feel better. He denies any nausea, vomiting, abdominal pain, diarrhea, headache, dizziness, fevers, chills. OBJECTIVE: Vital Signs Date Time Temp Pulse Resp B/P Pulse Ox O2 Delivery O2 Flow Rate FiO2 03/30/16 08:00 Nasal Cannula 6.0 03/30/16 06:00 98.0 80 20 178/72 96 I&O- Last 24 Hours up to 6 AM 03/30/16 06:00 Intake Total 2160 ml Output Total 1750 ml Balance 410 ml GENERAL: Patient alert and oriented, in no acute distress. HEENT: Normocephalic, atraumatic. Extraocular movements intact. Moist mucosa. NECK: Supple. Jugular veins are elevated. HEART: Normal S1, S2. Regular rate and rhythm. LUNGS: He has crackles in bilateral lower bases. Fair air movement bilaterally. ABDOMEN: Abdomen is soft. Mildly distended. Nontender to palpation. Bowel sounds are present. No rebound, guarding or rigidity. EXTREMITIES: +1 lower extremity edema. No cyanosis. Positive pedal pulses bilaterally. NEUROLOGIC: No focal deficits. LABORATORY DATA: 03/30/16 05:58 03/30/16 05:55: Arterial Blood pH 7.271L, Arterial Blood Partial Pressure CO2 60.9*H, Arterial Blood Partial Pressure O2 69.6L, Arterial Blood Total CO2 29.3, Arterial Blood HCO3 27.4H, Arterial Blood Base Excess -0.3, Arterial Blood Oxygen Saturation 92.2L, Blood Gas Bicarbonate Standard 24.2 03/30/16 05:58: Albumin 2.8L, Anion Gap 10, Calcium Level 8.9, Glomerular Filtration Rate 19.0L , Phosphorus Level 5.5H ASSESSMENT AND PLAN: Mr. 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 1. Acute on chronic kidney disease stage III, baseline creatinine of 2.0. His creatinine continues to fluctuate depending on whether he receives fluids or Lasix. At this point in time, he is volume overloaded and has been given 2 doses of Lasix. His renal function has not significantly improved and given his volume status, we will need to move forward with initiating hemodialysis. He will have a temporary catheter placed, most likely on Friday and will either receive hemodialysis Friday or Friday of next week. This has been discussed with the patient and he is agreeable to move forward with this plan. It is yet to be seen how his renal function will respond, however this will likely be indefinite. He still has a Pratt in place and 24 hour urine is being collected to obtain a creatinine clearance, and this will give us a more accurate assessment of his renal function. Electrolytes are otherwise stable. 2. Acute on chronic hypercapnic and hypoxemic respiratory failure. Pulmonary edema is the contributing factor. He has been given Lasix and respiratory status should be monitored closely. 3. Hyperphosphatemia, secondary to renal disease. No intervention at this time as this will likely improve with dialysis. 4. Chronic diastolic heart failure. IV hydration was given to assist with renal function and due to poor oral intake, however has some volume overload and is being diuresed. 5. Hypertension. Blood pressure has been sub-optimal although on a number of antihypertensives. His renal function is contributing to the this lack of control. Continue current medications which include Norvasc 10mg daily, labetalol 300mg BID, Isordil 20mg TID, hydralazine 50mg TID, clonidine 0.1 BID and terazosin 5mg qhs. His home doses of hydrochlorothiazide, Lasix and losartan were held on admission secondary to acute kidney injury. 6. Anemia in chronic kidney disease. He received 1 unit of pRBCs on 03/26. No signs of acute bleeding. He will likely receive Aranesp once he gets started on dialysis. He is also on ferrous sulfate twice daily. 7. Deconditioning. Patient would benefit from physical therapy. GME ATTESTATION GME ATTESTATION My preceptor for this patient encounter was physically present in the building during the encounter and was fully available. As needed, all aspects of the patient interview, examination, medical decision making process, and medical care plan development were reviewed and approved by the preceptor. Preceptor is aware and concurs with the plan as stated in the body of this note and will attest to such by his/her cosignature. JAKOB ARRIAZA DO Mar 30, 2016 12:07
[2016-03-30 14:00] VITALS: BP 165/75
--- NOTE | 2016-03-30 14:33 | IPNPDOC ---
Assessment/Plan Date Seen The patient was seen on 03/30/16. Problems Problems: (1) Ileus Status: Resolved Response to Treatment: Stable Problem Text: Tolerating regular diet well and passing bowel movements and flatus without any issues Surgical consultation noted from earlier in the admission We will continue to monitor his progress (2) Acute kidney injury superimposed on CKD Status: Acute Problem Text: Patient's serum creatinine down trending around 3.5 at this time , baseline around 2 Initially thought to be secondary to prerenal azotemia as the patient did present with diarrhea Possibly secondary to underlying abdominal distention from ileus vs ?Small bowel obstruction Ultrasound of the kidneys ordered-notable for medical renal disease Nephrotoxins held Electrolytes stable Nephrology on board-the patient potentially going for hemodialysis starting next week given his fluid overload state and lack of renal improvement (3) Diastolic CHF Status: Chronic Response to Treatment: Stable Problem Text: Currently appears clinically compensated Diuretic therapy as per Nephro (4) Occupational lung disease Status: Chronic Problem Text: Continue on albuterol, Symbicort, tiotropium (5) Diabetes Status: Chronic Problem Text: Continue on insulin sliding scale (6) Chronic anemia Status: Chronic Problem Text: Hemoglobin noted to be 7.8 today No active bleeding noted We'll transfuse 1 unit of packed red blood cells Continue with ferrous sulfate therapy (7) Obesity Status: Chronic (8) ANKITA (obstructive sleep apnea) Status: Chronic (9) Gait instability Status: Chronic Problem Text: Physical therapy ordered (10) CAD in [place] artery Status: Chronic Problem Text: Continue aspirin, nel, simvastatin (11) Hypertension Status: Chronic Response to Treatment: Stable Problem Text: Continue current anti-hypertensive regimen. (12) Protein calorie malnutrition Status: Acute Problem Text: The patient has been having poor oral intake, and Marinol was added Calories count in affect, the patient did eat 50% of his lunch today The possibility of PEG tube was discussed with the patient and his family at the bedside given the patient's lack of appetite and poor oral intake Patient states that he would like to try to increase his oral intake at this time. We will continue to monitor his progress Plan / VTE VTE Prophylaxis Ordered?: Yes Plan / Urinary Catheter Reason for insertion/continuin: Critical Pt monitoring Subjective Review of Systems CC/HPI The patient is a 75-year-old male admitted with a reason for visit of Liban ( Acute Kidney Injury). General: Denies: Chills, Night Sweats Constitutional: Denies: Chills, Fever Eyes: Denies: Pain, Vision change ENT: Denies: Ear Pain, Head Aches Skin: Denies: Lesions, Rash Pulmonary: Reports: Cough, Dyspnea Cardiovascular: Denies: Chest Pain, Palpitations Gastrointestinal: Denies: Nausea, Vomiting Genitourinary: Denies: Dysuria, Frequency Hematologic: Denies: Bleeding Excessively, Bruising Objective Physical Examination General Exam: Positive: Alert, Cooperative, No Acute Distress ENT Exam: Positive: Atraumatic, Mucous membr. moist/pink Chest Exam: Positive: Diminished, Rales (faint bibasilar rales noted today) Heart Exam: Positive: Normal S1, Normal S2, Rate Normal Abdomen Exam: Positive: Other (mildly distended), Soft, Negative: Hepatospenomegaly, Tenderness Extremity Exam: Negative: Tenderness Vital Signs/I&O Vital Signs Date Time Temp Pulse Resp B/P Pulse Ox O2 Delivery O2 Flow Rate FiO2 03/30/16 11:46 73 170/70 03/30/16 08:00 Nasal Cannula 6.0 03/30/16 06:00 98.0 20 96 I&O- Last 24 Hours up to 6 AM 03/30/16 05:59 Intake Total 1860 ml Output Total 1150 ml Balance 710 ml Laboratory Data Labs 24H Laboratory Tests 2 03/29/16 16:35: Bedside Glucose (Misc Panel) 189H 03/29/16 20:36: Bedside Glucose (Misc Panel) 218H 03/30/16 05:55: Arterial Blood pH 7.271L, Arterial Blood Partial Pressure CO2 60.9*H, Arterial Blood Partial Pressure O2 69.6L, Arterial Blood Total CO2 29.3, Arterial Blood HCO3 27.4H, Arterial Blood Base Excess -0.3, Arterial Blood Oxygen Saturation 92.2L, Blood Gas Bicarbonate Standard 24.2 03/30/16 05:58: Albumin 2.8#L, Blood Urea Nitrogen 52H, Creatinine 3.37H, Sodium Level 138, Potassium Level 5.0, Chloride Level 99, Carbon Dioxide Level 29, Anion Gap 10, Calcium Level 8.9, Glomerular Filtration Rate 19.0L, Phosphorus Level 5.5H 03/30/16 11:02: Bedside Glucose (Misc Panel) 222H CBC/BMP Laboratory Tests 03/30/16 05:58 Anion Gap 10 FSBS Laboratory Tests Test 03/29/16 16:35 03/29/16 20:36 03/30/16 11:02 Range/Units Bedside Glucose (Misc Panel) 189 218 222 83-110 MG/DL Microbiology Microbiology 03/20/16 MRSA Screen - Final, Complete MARY PEOPLES MD Mar 30, 2016 14:33
[2016-03-30 22:00] VITALS: BP 149/77
[2016-03-30] MEDS: hydrOXYzine 50 MG TAB PO SCH (22:25)
[2016-03-30] MEDS: TERAZOSIN 5 MG CAP PO SCH (22:26)
[2016-03-31 05:39] LABS: MEAN CORPUSCULAR HEMOGLOBIN 27.1 pg (27.0-33.0); MEAN CORPUSCULAR VOLUME 84.8 fl (80.0-96.0); RED CELL DISTRIBUTION WIDTH 16.3 % (11.5-14.5); WHITE BLOOD COUNT 10.8 K/mm3 (4.0-10.0)
[2016-03-31 05:49] LABS: ALBUMIN 2.3 GM/DL (3.2-5.2); CALCIUM LEVEL 8.9 MG/DL (8.8-10.2); CREATININE FOR GFR 3.39 MG/DL (0.70-1.30); GLOMERULAR FILTRATION RATE 18.9 (>42); PHOSPHORUS LEVEL 5.4 MG/DL (2.5-4.9); POTASSIUM SERUM 4.5 MEQ/L (3.5-5.1)
[2016-03-31 06:00] VITALS: BP 162/77
[2016-03-31] MEDS: ISOSORBIDE DIN. (ISORDIL) 20 MG TAB PO SCH ×3 (06:55→17:47)
[2016-03-31] MEDS: TIOTROPIUM INHALER/CAPSULE (SPIRIVA) INH SCH (07:13)
[2016-03-31] MEDS: SYMBICORT 160/4.5MCG INHALER 6GM INH SCH ×2 (07:13→21:45)
[2016-03-31] MEDS: ALBUTEROL SULFATE 2.5 MG/0.5 ML INH NEB SOLN INH SCH ×3 (07:14→20:09)
[2016-03-31] MEDS: HumaLOG INSULIN (NovoLOG) PER UNIT SC SCH ×4 (08:36→21:00)
[2016-03-31] MEDS: SENOKOT S TAB PO SCH ×2 (08:37→21:02)
[2016-03-31] MEDS: VITAMIN D 1,000 INTERNATIONAL UNITS TABLET PO SCH (08:37)
[2016-03-31] MEDS: HEPARIN SOD (PORCINE) 5000 UNITS/ML VIAL SQ SCH ×2 (08:37→21:06)
[2016-03-31] MEDS: MIRALAX *UNIT DOSE* 17GM PACKET PO SCH (08:37)
[2016-03-31] MEDS: DRONABINOL 2.5 MG CAP (MARINOL) PO SCH ×3 (08:38→21:04)
[2016-03-31] MEDS: cloNIDine 0.1 MG TAB PO SCH ×2 (08:38→21:05)
[2016-03-31] MEDS: CLOPIDOGREL 75 MG TAB PO SCH (08:38)
[2016-03-31] MEDS: **hydrALAZINE** 50 MG TAB PO SCH ×3 (08:38→21:00)
[2016-03-31] MEDS: FERROUS SULFATE 325MG TAB PO SCH ×2 (08:39→21:05)
[2016-03-31] MEDS: ATORVASTATIN 20 MG TAB PO SCH (08:39)
[2016-03-31] MEDS: PANTOPRAZOLE 40MG TAB (PROTONIX) PO SCH (08:39)
[2016-03-31] MEDS: MULTIVITAMINS/MINERALS THERAP 1 TAB PO SCH (08:39)
[2016-03-31] MEDS: ASPIRIN 81 MG ENTERIC TAB PO SCH (08:39)
[2016-03-31] MEDS: amLODIPine 10 MG TAB PO SCH (08:39)
[2016-03-31] MEDS: LABETALOL 100 MG TAB PO SCH ×2 (08:40→21:03)
[2016-03-31] MEDS ORDERED: FUROSEMIDE 40 MG/4 ML VIAL (J1940) IV ONE (10:15)
--- NOTE | 2016-03-31 11:31 | IPNPDOC ---
Assessment/Plan Date Seen The patient was seen on 03/31/16. Problems Problems: (1) Ileus Status: Resolved Response to Treatment: Stable Problem Text: Tolerating regular diet well and passing bowel movements and flatus without any issues Surgical consultation noted from earlier in the admission We will continue to monitor his progress (2) Acute kidney injury superimposed on CKD Status: Acute Problem Text: Patient's serum creatinine down trending around 3.5 at this time , baseline around 2 Ultrasound of the kidneys ordered-notable for medical renal disease Patient's renal function has not improved over the last few weeks despite multiple efforts with balancing IV fluid hydration and diuretic therapy 24 hour urine study noted Nephrology on board-the patient will have a perma-catheter placed tomorrow and will be subsequently initiated on dialysis as per nephrology (3) Diastolic CHF Status: Chronic Response to Treatment: Stable Problem Text: Currently appears clinically compensated Diuretic therapy as per Nephro (4) Occupational lung disease Status: Chronic Problem Text: Continue on albuterol, Symbicort, tiotropium (5) Diabetes Status: Chronic Problem Text: Continue on insulin sliding scale (6) Chronic anemia Status: Chronic Problem Text: Hemoglobin noted to be 7.8 today No active bleeding noted We'll transfuse 1 unit of packed red blood cells Continue with ferrous sulfate therapy (7) Obesity Status: Chronic (8) ANKITA (obstructive sleep apnea) Status: Chronic (9) Gait instability Status: Chronic Problem Text: Physical therapy ordered (10) CAD in [place] artery Status: Chronic Problem Text: Continue aspirin, nel, simvastatin (11) Hypertension Status: Chronic Response to Treatment: Stable Problem Text: Continue current anti-hypertensive regimen. (12) Protein calorie malnutrition Status: Acute Problem Text: The patient has been having poor oral intake, and Marinol was added Calories count in affect, the patient did eat 50% of his lunch today The possibility of PEG tube was discussed with the patient and his family at the bedside given the patient's lack of appetite and poor oral intake Patient states that he would like to try to increase his oral intake at this time. We will continue to monitor his progress Plan / VTE VTE Prophylaxis Ordered?: Yes Plan / Urinary Catheter Reason for insertion/continuin: Critical Pt monitoring Disposition Pending placement Subjective Review of Systems CC/HPI The patient is a 75-year-old male admitted with a reason for visit of Liban ( Acute Kidney Injury). General: Denies: Chills, Night Sweats Constitutional: Denies: Chills, Fever Eyes: Denies: Pain, Vision change ENT: Denies: Ear Pain, Head Aches Skin: Denies: Lesions, Rash Pulmonary: Reports: Dyspnea, Denies: Cough Gastrointestinal: Denies: Nausea, Vomiting Genitourinary: Denies: Dysuria, Frequency Hematologic: Denies: Bleeding Excessively, Bruising Objective Physical Examination General Exam: Positive: Alert, Cooperative, No Acute Distress ENT Exam: Positive: Atraumatic, Mucous membr. moist/pink Chest Exam: Positive: Diminished, Rales (faint bibasilar rales noted today) Heart Exam: Positive: Normal S1, Normal S2, Rate Normal Abdomen Exam: Positive: Other (mildly distended), Soft, Negative: Hepatospenomegaly, Tenderness Extremity Exam: Negative: Tenderness Vital Signs/I&O Vital Signs Date Time Temp Pulse Resp B/P Pulse Ox O2 Delivery O2 Flow Rate FiO2 03/31/16 08:40 80 162/77 03/31/16 06:00 97.7 20 96 Nasal Cannula 2.0 I&O- Last 24 Hours up to 6 AM 03/31/16 06:00 Intake Total 1080 ml Output Total 2250 ml Balance -1170 ml Laboratory Data Labs 24H Laboratory Tests 2 03/30/16 17:43: Bedside Glucose (Misc Panel) 158H 03/30/16 19:44: Bedside Glucose (Misc Panel) 145H 03/31/16 05:12: Albumin 2.3L, Blood Urea Nitrogen 54H, Creatinine 3.39H, Sodium Level 140, Potassium Level 4.5, Chloride Level 101, Carbon Dioxide Level 31, Anion Gap 8, Calcium Level 8.9, Glomerular Filtration Rate 18.9L, Phosphorus Level 5.4H 03/31/16 09:25: Urine Creatinine 27.9, Urine Creatinine 24 Hour 613.8L, Urine Total Volume 2200 CBC/BMP Laboratory Tests 03/31/16 05:12 Anion Gap 8, Red Blood Count 2.94 L, Mean Corpuscular Volume 84.8, Mean Corpuscular Hemoglobin 27.1, Mean Corpuscular Hemoglobin Concent 32.0, Red Cell Distribution Width 16.3 H FSBS Laboratory Tests Test 03/30/16 17:43 03/30/16 19:44 Range/Units Bedside Glucose (Misc Panel) 158 145 83-110 MG/DL MARY PEOPLES MD Mar 31, 2016 11:31
[2016-03-31 14:00] VITALS: BP 150/66
[2016-03-31] MEDS ORDERED: DARBEPOETIN 300 MCG/0.6 ML *DIALYSIS* SYRINGE (J0882) IV SCH (16:30)
[2016-03-31] MEDS: TERAZOSIN 5 MG CAP PO SCH (21:04)
[2016-03-31] MEDS: hydrOXYzine 50 MG TAB PO SCH (21:05)
[2016-03-31 22:00] VITALS: BP 163/77
[2016-04-01] MEDS: ALBUTEROL SULFATE 2.5 MG/0.5 ML INH NEB SOLN NEB PRN ×2 (03:22→23:34)
[2016-04-01 06:00] VITALS: BP 167/76
[2016-04-01 06:46] LABS: ALBUMIN 2.4 GM/DL (3.2-5.2); CREATININE FOR GFR 3.67 MG/DL (0.70-1.30); GLOMERULAR FILTRATION RATE 17.2 (>42); PHOSPHORUS LEVEL 5.4 MG/DL (2.5-4.9); POTASSIUM SERUM 4.3 MEQ/L (3.5-5.1)
[2016-04-01] MEDS: ISOSORBIDE DIN. (ISORDIL) 20 MG TAB PO SCH ×3 (06:58→17:22)
[2016-04-01] MEDS: ALBUTEROL SULFATE 2.5 MG/0.5 ML INH NEB SOLN INH SCH ×3 (07:09→20:00)
[2016-04-01] MEDS: SYMBICORT 160/4.5MCG INHALER 6GM INH SCH ×2 (07:09→20:14)
[2016-04-01] MEDS: TIOTROPIUM INHALER/CAPSULE (SPIRIVA) INH SCH (07:09)
[2016-04-01] MEDS: **hydrALAZINE** 50 MG TAB PO SCH ×3 (08:11→21:05)
[2016-04-01] MEDS: cloNIDine 0.1 MG TAB PO SCH ×2 (08:11→21:03)
[2016-04-01] MEDS: ATORVASTATIN 20 MG TAB PO SCH (08:11)
[2016-04-01] MEDS: FERROUS SULFATE 325MG TAB PO SCH ×2 (08:11→21:02)
[2016-04-01] MEDS: ASPIRIN 81 MG ENTERIC TAB PO SCH (08:11)
[2016-04-01] MEDS: HumaLOG INSULIN (NovoLOG) PER UNIT SC SCH ×4 (08:11→21:00)
[2016-04-01] MEDS: MULTIVITAMINS/MINERALS THERAP 1 TAB PO SCH (08:12)
[2016-04-01] MEDS: LABETALOL 100 MG TAB PO SCH ×2 (08:12→21:06)
[2016-04-01] MEDS: SENOKOT S TAB PO SCH ×2 (08:12→21:03)
[2016-04-01] MEDS: amLODIPine 10 MG TAB PO SCH (08:12)
[2016-04-01] MEDS: PANTOPRAZOLE 40MG TAB (PROTONIX) PO SCH (08:12)
[2016-04-01] MEDS: VITAMIN D 1,000 INTERNATIONAL UNITS TABLET PO SCH (08:12)
[2016-04-01] MEDS: MIRALAX *UNIT DOSE* 17GM PACKET PO SCH (08:13)
[2016-04-01] MEDS: DRONABINOL 2.5 MG CAP (MARINOL) PO SCH ×3 (08:13→21:04)
--- NOTE | 2016-04-01 08:29 | REP ---
Chest semi upright AP and lateral views: Comparison is the AP supine view of 03/21/2016. There is diffuse interstitial coarsening compatible with interstitial infiltrates. On the lateral view there are bilateral pleural effusions. Cardiac size is normal for positioning. The salvador, mediastinum, bony thorax are unremarkable. Signed by Jhony Bess MD 03/30/2016 08:23 A
--- NOTE | 2016-04-01 08:33 | IPN ---
DATE: 03/31/2016 Mr. Snyder is seen this morning on his bedside. He is sitting in the bed with pillow support behind his back and he is eating his breakfast. He reports that his dyspnea improved; however, he has chronic dyspnea and has been on home oxygen. He denies any chest pain, fever or chills. The patient denies any nausea or vomiting and reports improved appetite. Otherwise, his review of systems has been unremarkable. On physical exam, temperature is 96.4 degrees Fahrenheit, heart rate 72 per minute and respiratory rate 18 per minute. Blood pressure 162/77 mmHg and oxygen saturation 97% on 3 liters oxygen. Intake and output records from yesterday showed total intake 1080 and output 2250. He has completed his 24-hour urine collection this morning. Head is atraumatic. Ears, nose and throat are unremarkable. Pupils are equal and reactive to light and sclera is anicteric. Neck is supple and without any jugular venous distention (JVD) or thyroid enlargement. Trachea is midline. Heart sounds are regular and lungs with bilateral rales and rhonchi. Abdomen is obese and nontender. Bowel sounds are normal. There is no palpable organomegaly. Extremities have no cyanosis or clubbing. He does have 1+ edema on his lower legs. Skin is dry and without any rash or ulcers. Neurologically he is awake, alert and oriented times three. There is no focal neurological deficit; however, he is quite weak. Today's labs show WBC count 10.8, hemoglobin 8.0 and hematocrit 24.9. Sodium 140 and potassium 4.5. BUN 54 and creatinine 3.39. Calcium level is 8.9 and phosphorus is 5.4. PROBLEMS: 1. Acute renal failure superimposed on chronic kidney disease. There has been no trend, however, his kidney disease is significant and most likely close to stage V of chronic kidney disease. He has been hydrated multiple times with IV fluid without any improvement in his kidney function. His symptoms of chronic and he did get volume overload causing acute respiratory distress a couple of days ago. His IV fluid has been stopped now. I have discussed with the patient at length about need for dialysis as his kidney function has not improved with all interventions performed so far. He has consented for dialysis. He had multiple questions again today about the procedure and transportation issues, which were all answered to his satisfaction. An interventional radiology consultation has already been requested for a dialysis catheter placement and we will plan to dialyze him next week. 2. Acute on chronic respiratory failure. The patient does have chronic hypoxemia requiring home oxygen. He did get volume overloaded with IV fluids about 48 hours ago and since then his IV fluid has been stopped. He was given IV Lasix 40 mg with good response. We will give him another dose of Lasix 40 mg intravenously today and monitor his urine output. 3. Acute on chronic diastolic congestive heart failure. Most likely this is a result of advanced kidney disease and IV fluids given. Now his IV fluid has been stopped. His volume status is still somewhat decompensated. He will be diuresed with IV Lasix 40 mg one dose today. 4. Hypertension. His blood pressure control has been suboptimal and he has required multiple antihypertensive medications. I feel that advanced kidney disease and volume overload is contributing to poor control of hypertension. His blood pressure is likely to control with hemodialysis and then his medications will be adjusted. 5. Anemia. The patient has required transfusions. His anemia is multifactorial and certainly has a contribution from advanced chronic kidney disease. We will start Aranesp with hemodialysis. At this point there is no emergent indication for transfusion. 6. Generalized weakness and deconditioning. This is chronic and worsening due to prolonged hospitalization. The patient has multiorgan problems. He is likely to require subacute rehab or group home placement. At this point, we will continue to optimize his medical conditions.
[2016-04-01] MEDS ORDERED: HEPARIN 1,000 UNITS/ML 10ML VIAL (FOR RADIOLOGY& DIALYSIS ONLY) As Ordered ONE (09:38)
[2016-04-01] MEDS ORDERED: LIDOCAINE 2% MDV 20 ML VIAL As Ordered ONE (09:38)
[2016-04-01] MEDS ORDERED: SODIUM BICARBONATE 8.4% INJ 50MEQ 50 ML VIAL As Ordered ONE (09:38)
[2016-04-01] MEDS ORDERED: LIDOCAINE W/EPINEPHRINE 1% 20ML VIAL As Ordered ONE (09:38)
[2016-04-01] MEDS ORDERED: HEPARIN 1,000 UNITS/ML 10ML VIAL (FOR RADIOLOGY& DIALYSIS ONLY) XX ONE (10:30)
[2016-04-01] MEDS ORDERED: HEPARIN 1,000 UNITS/ML 10ML VIAL (FOR RADIOLOGY& DIALYSIS ONLY) IV ONE (11:30)
[2016-04-01] MEDS: CLOPIDOGREL 75 MG TAB PO SCH (12:28)
[2016-04-01] MEDS: HEPARIN SOD (PORCINE) 5000 UNITS/ML VIAL SQ SCH ×2 (12:28→21:06)
[2016-04-01 12:32] VITALS: BP 166/77
--- NOTE | 2016-04-01 13:15 | IPNPDOC ---
Assessment/Plan Date Seen The patient was seen on 04/01/16. Problems Problems: (1) Acute kidney injury superimposed on CKD Status: Acute Problem Text: Patient's serum creatinine down trending around 3.5 at this time , baseline around 2 Ultrasound of the kidneys ordered-notable for medical renal disease Patient's renal function has not improved over the last few weeks despite multiple efforts with balancing IV fluid hydration and diuretic therapy 24 hour urine study noted Nephrology on board-the patient will have a perma-catheter placed today and will be subsequently initiated on dialysis as per nephrology (2) Ileus Status: Resolved Response to Treatment: Stable Problem Text: Tolerating regular diet well and passing bowel movements and flatus without any issues Surgical consultation noted from earlier in the admission We will continue to monitor his progress (3) Diastolic CHF Status: Chronic Response to Treatment: Stable Problem Text: Currently appears clinically compensated HD therapy as per Nephro (4) Occupational lung disease Status: Chronic Problem Text: Continue on albuterol, Symbicort, tiotropium (5) Diabetes Status: Chronic Problem Text: Continue on insulin sliding scale (6) Chronic anemia Status: Chronic Problem Text: Hemoglobin noted to be 7.8 today No active bleeding noted We'll transfuse 1 unit of packed red blood cells Continue with ferrous sulfate therapy (7) Obesity Status: Chronic (8) ANKITA (obstructive sleep apnea) Status: Chronic (9) Gait instability Status: Chronic Problem Text: Physical therapy ordered (10) CAD in [place] artery Status: Chronic Problem Text: Continue aspirin, nel, simvastatin (11) Hypertension Status: Chronic Response to Treatment: Stable Problem Text: Continue current anti-hypertensive regimen. (12) Protein calorie malnutrition Status: Acute Problem Text: The patient has been having poor oral intake, and Marinol was added Calories count in affect, the patient did eat 50% of his lunch today The possibility of PEG tube was discussed with the patient and his family at the bedside given the patient's lack of appetite and poor oral intake Patient states that he would like to try to increase his oral intake at this time. We will continue to monitor his progress Plan / VTE VTE Prophylaxis Ordered?: Yes Plan / Urinary Catheter Reason for insertion/continuin: Critical Pt monitoring Disposition Patient to have perma-cath placed today for initiation of dialysis as per Nephro. Pending placement Subjective Review of Systems CC/HPI The patient is a 75-year-old male admitted with a reason for visit of Liban ( Acute Kidney Injury). General: Denies: Chills, Night Sweats Constitutional: Denies: Chills, Fever Eyes: Denies: Pain, Vision change ENT: Denies: Ear Pain, Head Aches Skin: Denies: Lesions, Rash Pulmonary: Denies: Cough, Dyspnea Cardiovascular: Denies: Chest Pain, Palpitations Gastrointestinal: Denies: Nausea, Vomiting Genitourinary: Denies: Dysuria, Frequency Objective Physical Examination General Exam: Positive: Alert, Cooperative, No Acute Distress ENT Exam: Positive: Atraumatic, Mucous membr. moist/pink Chest Exam: Positive: Diminished, Rales (faint bibasilar rales noted today) Heart Exam: Positive: Normal S1, Normal S2, Rate Normal Abdomen Exam: Positive: Other (mildly distended), Soft, Negative: Hepatospenomegaly, Tenderness Extremity Exam: Negative: Tenderness Vital Signs/I&O Vital Signs Date Time Temp Pulse Resp B/P Pulse Ox O2 Delivery O2 Flow Rate FiO2 04/01/16 12:32 80 166/77 04/01/16 08:00 Nasal Cannula 3.0 04/01/16 06:00 97.8 18 98 I&O- Last 24 Hours up to 6 AM 04/01/16 06:00 Intake Total 1680 ml Output Total 1100 ml Balance 580 ml Laboratory Data Labs 24H Laboratory Tests 2 03/31/16 16:51: Bedside Glucose (Misc Panel) 187H 03/31/16 19:45: Bedside Glucose (Misc Panel) 197H 04/01/16 05:59: Albumin 2.4L, Blood Urea Nitrogen 53H, Creatinine 3.67H, Sodium Level 139, Potassium Level 4.3, Chloride Level 101, Carbon Dioxide Level 31, Anion Gap 7L, Calcium Level 9.0, Glomerular Filtration Rate 17.2L, Phosphorus Level 5.4H 04/01/16 11:37: Bedside Glucose (Misc Panel) 174H CBC/BMP Laboratory Tests 04/01/16 05:59 Anion Gap 7 L FSBS Laboratory Tests Test 03/31/16 16:51 03/31/16 19:45 04/01/16 11:37 Range/Units Bedside Glucose (Misc Panel) 187 197 174 83-110 MG/DL MARY PEOPLES MD Apr 01, 2016 13:15
--- NOTE | 2016-04-01 13:58 | IPNPDOC ---
Date/Time Seen The patient was seen on 04/01/16 at 13:50. Progress Note DATE OF ENCOUNTER: 04/01/2016 SUBJECTIVE: Mr. Snyder is being seen during hemodialysis. He reports that he had shortness of breath, specifically when he lies flat. No chest pain. He remains on supplemental oxygen, at his baseline requirement. He denies any nausea, vomiting, abdominal pain, diarrhea, headache, dizziness, fevers, chills. He is tolerating hemodialysis thus far. OBJECTIVE: Vital Signs Date Time Temp Pulse Resp B/P Pulse Ox O2 Delivery O2 Flow Rate FiO2 04/01/16 12:32 80 166/77 04/01/16 08:00 Nasal Cannula 3.0 04/01/16 06:00 97.8 18 98 I&O- Last 24 Hours up to 6 AM 04/01/16 06:00 Intake Total 1680 ml Output Total 1100 ml Balance 580 ml GENERAL: Patient is alert and oriented, in no acute distress. HEENT: Normocephalic, atraumatic. Extraocular movements intact. Moist mucosa. NECK: Supple. Jugular veins are elevated. HEART: Normal S1, S2. Regular rate and rhythm. LUNGS: He has crackles in bilateral lower bases. Fair air movement bilaterally. ABDOMEN: Abdomen is soft. Mildly distended. Nontender to palpation. Bowel sounds are present. No rebound, guarding or rigidity. EXTREMITIES: Positive for foot and ankle edema, right > left. No cyanosis. Positive pedal pulses bilaterally. NEUROLOGIC: No focal deficits. Moving all extremities LABORATORY DATA: 04/01/16 05:59 ASSESSMENT AND PLAN: Mr. 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 1. Acute on chronic kidney disease. His kidney disease has advanced to close to stage V. His renal function did not respond to IV fluids and then he required Lasix. Given that he is volume overloaded, he has been initiated on hemodialysis. Dialysis catheter was placed earlier today without any issues. Goal is to remove 1 liter. Electrolytes are otherwise stable. 2. Acute on chronic hypercapnic and hypoxemic respiratory failure. He has received a couple doses of Lasix and this has improved. He is back down to his baseline requirement of 3 L. 3. Acute on chronic diastolic heart failure, most likely secondary to advanced kidney disease and IV fluids. Fluids were discontinued a couple of days ago and patient is being dialyzed. Volume status will continue to be monitored closely. 5. 4. Hypertension. Blood pressure has been sub-optimal although on a number of antihypertensives. His renal disease is contributing to this lack of control. He will be dialyzed and medications can be adjusted thereafter. Continue current medications which include Norvasc 10mg daily, labetalol 300mg BID, Isordil 20mg TID, hydralazine 50mg TID, clonidine 0.1 BID and terazosin 5mg qhs. His home doses of hydrochlorothiazide, Lasix and losartan were held on admission secondary to acute kidney injury. 5. Anemia in chronic kidney disease. He has required transfusion during this hospitalization. No signs of acute bleeding. He will be given Aranesp during dialysis. 6. Hyperphosphatemia. We will see if this improves with hemodialysis. 7. Generalized weakness and deconditioning. Patient will benefit from physical therapy and will likely need subacute rehabilitation secondary to prolonged hospitalization. GME ATTESTATION GME ATTESTATION My preceptor for this patient encounter was physically present in the building during the encounter and was fully available. As needed, all aspects of the patient interview, examination, medical decision making process, and medical care plan development were reviewed and approved by the preceptor. Preceptor is aware and concurs with the plan as stated in the body of this note and will attest to such by his/her cosignature. JAKOB ARRIAZA DO Apr 01, 2016 13:58
[2016-04-01 14:00] VITALS: BP 168/76
[2016-04-01] MEDS ORDERED: TUBERCULIN PPD 5 UNITS/0.1 ML ID ONE (15:00)
[2016-04-01 15:26] LABS: HEPATITIS B SURFACE ANTIBODY NEGATIVE (POSITIVE)
--- NOTE | 2016-04-01 16:13 | REPKIM ---
CLINICAL HISTORY: Renal failure and frequent PACs. The referring nephrology service has requested a tunneled dialysis catheter placement for hemodialysis. PROCEDURE PERFORMED: Right IJ Tunneled Hemodialysis Catheter Placement INTERVENTIONALIST: Dulce Maria Brown MD CONSENT: The risks, benefits and alternatives to the procedure were explained to the patient and informed written consent was obtained. MEDICATIONS: Local Lidocaine EBL: less than 10 mL DEVICE USED: 14.5-Kyrgyz 19-cm tip to cuff Palindrome Catheter Lot#[id number] FLUORO TIME: 0.9 minutes PROCEDURE/FINDINGS: The patient was brought to the interventional radiology suite where a timeout procedure was performed. The patient was placed in the supine position. The right neck and upper chest were prepped and draped in the usual sterile fashion. Real time ultrasound was used and permanent image stored. Using ultrasound guidance the internal jugular vein was punctured with a micropunture needle, after infiltration of the skin and deep tissues with local anesthetic. A 19-cm tip to cuff length, 14.5-[place]yr[place]z dual lumen Palindrome hemodialysis catheter was inserted. The catheter was placed through a subcutaneous tunnel requiring a second incision. The incision at the base of the neck was closed with 4-0 Vicryl suture and covered with steristrips. The catheter was secured at the skin exit site with 2-0 Prolene suture. The ports of the catheter were locked with heparin (1000 units/mL). A sterile dressing was then applied. Post procedure chest fluoroscopy showed the tip of the catheter at the SVC. The patient tolerated the procedure well with no immediate complications. This procedure was performed using ultrasound and fluoroscopy. Dr. Brown was present. IMPRESSION: 1. Ultrasound of the neck demonstrates patent right IJ vein and compressible. 2. Successful right IJ tunneled hemodialysis catheter placement as discussed above. There is free aspiration of blood from all ports of the catheter. The catheter is ready for immediate use. cc: MD Ayo Reid MD MTDD
[2016-04-01 17:24] VITALS: BP 158/72
[2016-04-01] MEDS: TERAZOSIN 5 MG CAP PO SCH (21:04)
[2016-04-01] MEDS: hydrOXYzine 50 MG TAB PO SCH (21:05)
[2016-04-01 22:00] VITALS: BP 164/78
[2016-04-02] MEDS: ALBUTEROL SULFATE 2.5 MG/0.5 ML INH NEB SOLN INH SCH ×3 (04:34→20:00)
[2016-04-02 06:00] VITALS: BP 155/79
[2016-04-02] MEDS: ISOSORBIDE DIN. (ISORDIL) 20 MG TAB PO SCH ×3 (06:20→16:31)
[2016-04-02 06:52] LABS: ALBUMIN 2.5 GM/DL (3.2-5.2); CALCIUM LEVEL 9.4 MG/DL (8.8-10.2); CREATININE FOR GFR 2.37 MG/DL (0.70-1.30); GLOMERULAR FILTRATION RATE 28.5 (>42); PHOSPHORUS LEVEL 3.4 MG/DL (2.5-4.9); POTASSIUM SERUM 4.5 MEQ/L (3.5-5.1)
[2016-04-02] MEDS: TIOTROPIUM INHALER/CAPSULE (SPIRIVA) INH SCH (07:56)
[2016-04-02] MEDS: SYMBICORT 160/4.5MCG INHALER 6GM INH SCH ×2 (07:56→20:34)
[2016-04-02] MEDS: HumaLOG INSULIN (NovoLOG) PER UNIT SC SCH ×4 (08:56→21:00)
[2016-04-02] MEDS: amLODIPine 10 MG TAB PO SCH (08:57)
[2016-04-02] MEDS: ATORVASTATIN 20 MG TAB PO SCH (08:57)
[2016-04-02] MEDS: CLOPIDOGREL 75 MG TAB PO SCH (08:57)
[2016-04-02] MEDS: ASPIRIN 81 MG ENTERIC TAB PO SCH (08:57)
[2016-04-02] MEDS: MIRALAX *UNIT DOSE* 17GM PACKET PO SCH (08:57)
[2016-04-02] MEDS: VITAMIN D 1,000 INTERNATIONAL UNITS TABLET PO SCH (08:57)
[2016-04-02] MEDS: SENOKOT S TAB PO SCH ×2 (08:57→21:25)
[2016-04-02] MEDS: PANTOPRAZOLE 40MG TAB (PROTONIX) PO SCH (08:58)
[2016-04-02] MEDS: LABETALOL 100 MG TAB PO SCH ×2 (08:58→21:24)
[2016-04-02] MEDS: MULTIVITAMINS/MINERALS THERAP 1 TAB PO SCH (08:58)
[2016-04-02] MEDS: cloNIDine 0.1 MG TAB PO SCH ×2 (08:59→21:26)
[2016-04-02] MEDS: DRONABINOL 2.5 MG CAP (MARINOL) PO SCH ×3 (08:59→21:27)
[2016-04-02] MEDS: **hydrALAZINE** 50 MG TAB PO SCH ×3 (08:59→21:27)
[2016-04-02] MEDS: HEPARIN SOD (PORCINE) 5000 UNITS/ML VIAL SQ SCH ×2 (08:59→21:28)
[2016-04-02] MEDS: FERROUS SULFATE 325MG TAB PO SCH ×2 (09:00→21:25)
[2016-04-02] MEDS: ALBUTEROL SULFATE 2.5 MG/0.5 ML INH NEB SOLN NEB PRN ×2 (11:59→23:37)
[2016-04-02 12:37] VITALS: BP 166/80
--- NOTE | 2016-04-02 13:54 | IPN ---
DATE: 04/02/2016 75-year-old male seen at bedside. No overnight complaints. No chest pain or shortness breath, productive sputum, cough or hemoptysis. OBJECTIVE: Temperature is 98.2, pulse 70 and regular, respiratory rate is 18, blood pressure (BP) 155/79, SPO2 94% on 3 liters oxygen. HEENT: Head is atraumatic, normocephalic. Eyes: Pupils equal, reactive to light and accommodation. Throat clear. Lungs: Expiratory wheeze, diminished bibasilar breath sounds. Heart: Regular rate and rhythm. Abdomen: Soft. Extremities: No edema. LABORATORY DATA: White count is 10.8, hemoglobin is 8.0, platelets 268,000. Sodium 140, potassium 4.5, chloride 103, bicarb 30, anion gap 7, BUN is 25, creatinine 2.37 down from 3.67, and glucose 142. ASSESSMENT/PLAN: 1. Acute kidney injury superimposed on chronic kidney disease (CKD). Creatinine is trending down from yesterday. Appreciate nephrology's input. He did have a Perma-Cath placed and dialysis yesterday. 2. Ileus, resolved. Tolerating a regular diet, passing flatus and having bowel movements. Continue to monitor. 3. Acute on chronic congestive heart failure. He is tolerating a diet. Will continue to monitor ins and outs. Hemodialysis done yesterday with 1500 mL of fluid removed. 4. History of occupational lung disease, chronic, stable. Continue on albuterol, Symbicort and atropine. 5. Diabetes. Continue with fingersticks, consistent carb diet and sliding scale insulin coverage. 6. Chronic anemia. Stable. Continue to follow. Continue with ferrous sulfate therapy. Likely related to renal disease. 7. Obesity, chronic, but complicates his medical care. 8. Obstructive sleep apnea. 9. Gait instability, chronic. Physical therapy is on board. 10. Coronary artery disease with [place] artery. Continue aspirin, beta nel and simvastatin. 11. Hypertension, stable. Will continue to follow. 12. Protein calorie malnutrition with poor intake. Marinol was added. PEG tube has been discussed with the patient and his family; however, he would like to try to increase his oral intake at this time. Will continue to monitor. 13. Deep vein thrombosis (DVT) prophylaxis with heparin. DISPOSITION: The patient is being looked at for possible subacute rehabilitation.
[2016-04-02 14:38] VITALS: BP 173/79
[2016-04-02 16:32] VITALS: BP 159/75
--- NOTE | 2016-04-02 20:26 | IPNPDOC ---
Date/Time Seen The patient was seen on 04/02/16 at 20:13. Progress Note DATE OF ENCOUNTER: 04/02/2016 SUBJECTIVE: Mr. Snyder was seen this morning at bedside. He had hemodialysis yesterday which was well tolerated. He had 1500ml of fluid removed. He is stating that he feels better this morning. He is looking well and sitting up in the chair. He still has some shortness of breath but it is improved. No chest pain. He remains on supplemental oxygen, at his baseline requirement. He denies any nausea, vomiting, abdominal pain, diarrhea, headache, dizziness, fevers, chills. OBJECTIVE: Vital Signs Date Time Temp Pulse Resp B/P Pulse Ox O2 Delivery O2 Flow Rate FiO2 04/02/16 18:24 Nasal Cannula 3.0 04/02/16 16:32 76 159/75 04/02/16 14:38 96.2 20 97 I&O- Last 24 Hours up to 6 AM 04/02/16 05:59 Intake Total 1690 ml Output Total 3270 ml Balance -1580 ml GENERAL: Patient is alert and oriented, in no acute distress. HEENT: Normocephalic, atraumatic. Extraocular movements intact. Moist mucosa. NECK: Supple. Jugular veins are elevated. HEART: Normal S1, S2. Regular rate and rhythm. LUNGS: He has crackles in bilateral lower bases. Fair air movement bilaterally. ABDOMEN: Abdomen is soft. Nontender to palpation. Bowel sounds are present. No rebound, guarding or rigidity. EXTREMITIES: Positive for foot and ankle edema, right > left. No cyanosis. Positive pedal pulses bilaterally. NEUROLOGIC: No focal deficits. Moving all extremities LABORATORY DATA: 04/02/16 06:21 ASSESSMENT AND PLAN: Mr. Snyder is a 75 year old male with past medical history significant for chronic kidney disease stage III, diastolic heart failure, chronic lung disease from occupational exposure with 3 L home O2, hypertension, gout, coronary artery disease with history of [place], diabetes mellitus type 2, hyperlipidemia, BPH, history of GI bleed and gastritis and sleep apnea not on CPAP who presented due to hypoglycemia, found to be in acute on chronic renal failure with partial small bowel obstruction. 1. Acute on chronic kidney disease. His kidney disease has advanced to close to stage V. His renal function did not respond to IV fluids and then he required Lasix. He had dialysis yesterday where 1500ml was removed. It was tolerated well and volume status is improving. Next hemodialysis session will be tomorrow 04/03. Electrolytes are stable. 2. Acute on chronic hypercapnic and hypoxemic respiratory failure, resolved. He is back down to his baseline requirement of 3 L. 3. Acute on chronic diastolic heart failure, most likely secondary to advanced kidney disease and IV fluids. Volume status is improving with hemodialysis. 4. Hypertension. Blood pressure has been sub-optimal although on a number of antihypertensives. His renal disease is contributing to this lack of control. Will monitor blood pressure while on dialysis. Continue current medications which include Norvasc 10mg daily, labetalol 300mg BID, Isordil 20mg TID, hydralazine 50mg TID, clonidine 0.1 BID and terazosin 5mg qhs. His home doses of hydrochlorothiazide, Lasix and losartan were held on admission secondary to acute kidney injury. 5. Anemia in chronic kidney disease. He has required transfusion during this hospitalization. No signs of acute bleeding. He will be given Aranesp during dialysis as needed. 6. Hyperphosphatemia. Improved with hemodialysis. 7. Generalized weakness and deconditioning. Patient will benefit from further physical therapy. GME ATTESTATION GME ATTESTATION My preceptor for this patient encounter was physically present in the building during the encounter and was fully available. As needed, all aspects of the patient interview, examination, medical decision making process, and medical care plan development were reviewed and approved by the preceptor. Preceptor is aware and concurs with the plan as stated in the body of this note and will attest to such by his/her cosignature. JAKOB ARRIAZA DO Apr 02, 2016 20:26
[2016-04-02] MEDS: TERAZOSIN 5 MG CAP PO SCH (21:27)
[2016-04-02] MEDS: hydrOXYzine 50 MG TAB PO SCH (21:27)
[2016-04-02 22:00] VITALS: BP 169/78
[2016-04-03 06:00] VITALS: BP 179/79
[2016-04-03] MEDS: VITAMIN D 1,000 INTERNATIONAL UNITS TABLET PO SCH (06:13)
[2016-04-03] MEDS: SENOKOT S TAB PO SCH ×2 (06:14→20:20)
[2016-04-03] MEDS: MULTIVITAMINS/MINERALS THERAP 1 TAB PO SCH (06:14)
[2016-04-03] MEDS: ASPIRIN 81 MG ENTERIC TAB PO SCH (06:14)
[2016-04-03] MEDS: CLOPIDOGREL 75 MG TAB PO SCH (06:15)
[2016-04-03] MEDS: DRONABINOL 2.5 MG CAP (MARINOL) PO SCH ×3 (06:16→20:19)
[2016-04-03] MEDS: ATORVASTATIN 20 MG TAB PO SCH (06:16)
[2016-04-03] MEDS: FERROUS SULFATE 325MG TAB PO SCH ×2 (06:17→20:20)
[2016-04-03] MEDS: PANTOPRAZOLE 40MG TAB (PROTONIX) PO SCH (06:17)
[2016-04-03] MEDS: HEPARIN SOD (PORCINE) 5000 UNITS/ML VIAL SQ SCH ×2 (06:19→20:18)
[2016-04-03] MEDS: MIRALAX *UNIT DOSE* 17GM PACKET PO SCH (06:25)
[2016-04-03] MEDS: HumaLOG INSULIN (NovoLOG) PER UNIT SC SCH ×4 (06:25→21:00)
[2016-04-03] MEDS: **hydrALAZINE** 50 MG TAB PO SCH ×3 (06:25→20:20)
[2016-04-03] MEDS: LABETALOL 100 MG TAB PO SCH ×2 (06:26→20:19)
[2016-04-03] MEDS: ISOSORBIDE DIN. (ISORDIL) 20 MG TAB PO SCH ×3 (06:26→17:59)
[2016-04-03] MEDS: amLODIPine 10 MG TAB PO SCH (06:26)
[2016-04-03 06:51] LABS: MEAN CORPUSCULAR HEMOGLOBIN 26.4 pg (27.0-33.0); MEAN CORPUSCULAR HGB CONC 30.1 g/dl (32.0-36.5); MEAN CORPUSCULAR VOLUME 87.9 fl (80.0-96.0); RED CELL DISTRIBUTION WIDTH 15.3 % (11.5-14.5); WHITE BLOOD COUNT 8.2 K/mm3 (4.0-10.0)
[2016-04-03 07:02] LABS: ALBUMIN 2.5 GM/DL (3.2-5.2); CALCIUM LEVEL 9.5 MG/DL (8.8-10.2); CREATININE FOR GFR 2.84 MG/DL (0.70-1.30); GLOMERULAR FILTRATION RATE 23.1 (>42); PHOSPHORUS LEVEL 3.9 MG/DL (2.5-4.9); POTASSIUM SERUM 4.3 MEQ/L (3.5-5.1)
[2016-04-03] MEDS: TIOTROPIUM INHALER/CAPSULE (SPIRIVA) INH SCH (07:17)
[2016-04-03] MEDS: ALBUTEROL SULFATE 2.5 MG/0.5 ML INH NEB SOLN INH SCH ×3 (07:17→20:00)
[2016-04-03] MEDS: SYMBICORT 160/4.5MCG INHALER 6GM INH SCH ×2 (07:17→19:59)
[2016-04-03] MEDS: cloNIDine 0.1 MG TAB PO SCH ×3 (09:00→20:20)
[2016-04-03] MEDS: PPD DOCUMENTATION ENTRY MISC XX SCH (10:00)
[2016-04-03] MEDS ORDERED: IRON SUCROSE 100 MG/5 ML INJ (J1756) IV SCH (11:00)
[2016-04-03] MEDS ORDERED: HEPARIN 1,000 UNITS/ML 10ML VIAL (FOR RADIOLOGY& DIALYSIS ONLY) IV ONE (12:15)
--- NOTE | 2016-04-03 15:19 | IPN ---
DATE: 04/03/2016 75-year-old seen at bedside. No chest pain, shortness breath, productive sputum, cough or hemoptysis. No abdominal pain. OBJECTIVE: Temperature is 96.6, pulse 78, respiratory rate is 18, blood pressure 179/79, SpO2 is 97% on 3 liters. GENERAL: The patient appears to be in no acute distress, pleasant talk to. HEENT: Unremarkable. LUNGS: Diminished bibasilar breath sounds, otherwise clear. HEART: Regular rate and rhythm. ABDOMEN: Soft. EXTREMITIES: No edema. No calf tenderness. LABORATORY DATA: White count 8.2, hemoglobin 8.5, platelets 288,000. Sodium 141, potassium 4.3, chloride 103, bicarbonate 31, anion gap 7, BUN is 28, creatinine 2.84, glucose is 144. ASSESSMENT/PLAN 1. Acute kidney injury superimposed on chronic kidney disease. Appreciate nephrology input. He did have dialysis and appreciate their further planning for any future dialysis. 2. Previous ileus, resolved. Tolerating diet. 3. Acute on chronic congestive heart failure, tolerating diet. We will continue to monitor his input and output. Dialysis per nephrology recommendations. 4. History of occupational lung disease, chronic and stable. Continue on Symbicort, atropine and albuterol 5. Diabetes. We will continue with fingersticks and consistent carbohydrate diet. Sliding scale insulin coverage. 6. Chronic anemia, stable. We will follow, likely multifactorial and related to his renal disease. 7. Morbid obesity, which is chronic and complicates medical care. 8. Obstructive sleep apnea. 9. Gait instability, chronic. Physical therapy is on board. 10. Coronary artery disease with [place] artery. Continue with beta blockers. 11. Hypertension. We will increase his clonidine today. 12. Protein calorie malnutrition/poor intake. Marinol was added previously. Percutaneous endoscopic gastrostomy (PEG) tube was discussed at some point, discussed with the patient and the family; however, he would like to try to increase his oral intake. Continue to monitor. 13. Deep vein thrombosis (DVT) prophylaxis. Continue with heparin. DISPOSITION: The patient is being looked at for possible subacute rehabilitation.
--- NOTE | 2016-04-03 16:51 | IPNPDOC ---
Date/Time Seen The patient was seen on 04/03/16 at 16:36. Progress Note DATE OF ENCOUNTER: 04/03/2016 SUBJECTIVE: Mr. Snyder was seen this afternoon while in hemodialysis. He reports that he feels well. He still has some shortness of breath but it is intermittent. No chest pain, chest pressure or palpitations. He denies any nausea, vomiting, abdominal pain, diarrhea, fevers, chills. No dizziness and blood pressure is stable. Reports that his appetite is improved and continues to be on Marinol. OBJECTIVE: Vital Signs Date Time Temp Pulse Resp B/P Pulse Ox O2 Delivery O2 Flow Rate FiO2 04/03/16 11:59 179/79 04/03/16 10:16 Nasal Cannula 3.0 04/03/16 06:00 96.6 79 18 97 I&O- Last 24 Hours up to 6 AM 04/03/16 06:00 Intake Total 800 ml Output Total 650 ml Balance 150 ml GENERAL: Patient is alert and oriented, in no acute distress. HEENT: Normocephalic, atraumatic. Extraocular muscles are intact. Moist mucosa. NECK: Supple. Jugular veins are mildly elevated. HEART: Normal S1, S2. Regular rate and rhythm. LUNGS: Fair air movement bilaterally. No rhonchi or wheezing appreciated. ABDOMEN: Abdomen is soft. Nontender to palpation. Bowel sounds are present. No rebound, guarding or rigidity. EXTREMITIES: Mild foot edema. No cyanosis. Positive pedal pulses bilaterally. SKIN: Warm and dry. No rashes noted. NEUROLOGIC: No focal deficits. Moving all extremities. LABORATORY DATA: 04/03/16 06:23 ASSESSMENT AND PLAN: Mr. Snyder is a 75 year old male with past medical history significant for chronic kidney disease stage III, diastolic heart failure, chronic lung disease from occupational exposure with 3 L home O2, hypertension, gout, coronary artery disease with history of [place], diabetes mellitus type 2, hyperlipidemia, BPH, history of GI bleed and gastritis and sleep apnea not on CPAP who presented due to hypoglycemia, found to be in acute on chronic renal failure with partial small bowel obstruction. Bowel obstruction has resolved and patient tolerating oral diet. Renal function did not improve, he was becoming fluid overloaded and subsequently started on hemodialysis. 1. End stage renal disease, now requiring hemodialysis. He originally presented with acute on chronic kidney disease which has advanced to end-stage as his renal function did not respond to IV fluids and then he became fluid overloaded. He is being dialyzed today, goal of removing 1.5 liters. Volume status is improving and electrolytes are stable. 2. Acute on chronic diastolic heart failure, most likely secondary to advanced kidney disease and IV fluids. Volume status is improving with hemodialysis. Respiratory status is stable and he is on baseline oxygen requirements. 3. Hypertension. Blood pressure has been sub-optimal although on a number of antihypertensives. We hope that with further dialysis, this will improve. No changes to his medications at this time. He is currently on Norvasc 10mg daily, labetalol 300mg BID, Isordil 20mg TID, hydralazine 50mg TID, clonidine 0.1 BID and terazosin 5mg qhs. His home doses of hydrochlorothiazide, Lasix and losartan were held on admission secondary to acute kidney injury. 4. Anemia in chronic kidney disease. Hemoglobin is currently 8.5. He was given a dose of Aranesp on Friday and has received Venofer today. No signs of acute bleeding. 5. Generalized weakness and deconditioning. Patient will benefit from further physical therapy. He will need short term rehab. GME ATTESTATION GME ATTESTATION My preceptor for this patient encounter was physically present in the building during the encounter and was fully available. As needed, all aspects of the patient interview, examination, medical decision making process, and medical care plan development were reviewed and approved by the preceptor. Preceptor is aware and concurs with the plan as stated in the body of this note and will attest to such by his/her cosignature. JAKOB ARRIAZA DO Apr 03, 2016 16:51
[2016-04-03 17:00] VITALS: BP 158/82
[2016-04-03] MEDS: TERAZOSIN 5 MG CAP PO SCH (20:19)
[2016-04-03] MEDS: hydrOXYzine 50 MG TAB PO SCH (20:20)
[2016-04-03 22:00] VITALS: BP 172/65
[2016-04-04] MEDS: ALBUTEROL SULFATE 2.5 MG/0.5 ML INH NEB SOLN NEB PRN ×3 (00:18→23:56)
[2016-04-04 06:00] VITALS: BP 182/80
[2016-04-04] MEDS: ISOSORBIDE DIN. (ISORDIL) 20 MG TAB PO SCH ×3 (06:31→16:58)
[2016-04-04 06:54] LABS: MEAN CORPUSCULAR HEMOGLOBIN 27.1 pg (27.0-33.0); MEAN CORPUSCULAR HGB CONC 31.1 g/dl (32.0-36.5); MEAN CORPUSCULAR VOLUME 87.1 fl (80.0-96.0); RED CELL DISTRIBUTION WIDTH 15.7 % (11.5-14.5); WHITE BLOOD COUNT 8.9 K/mm3 (4.0-10.0)
[2016-04-04 07:21] LABS: ALBUMIN 2.6 GM/DL (3.2-5.2); CALCIUM LEVEL 9.6 MG/DL (8.8-10.2); CREATININE FOR GFR 2.2 MG/DL (0.70-1.30); GLOMERULAR FILTRATION RATE 31.1 (>42); PHOSPHORUS LEVEL 2.9 MG/DL (2.5-4.9); POTASSIUM SERUM 3.9 MEQ/L (3.5-5.1)
[2016-04-04] MEDS: SYMBICORT 160/4.5MCG INHALER 6GM INH SCH ×2 (07:28→19:24)
[2016-04-04] MEDS: TIOTROPIUM INHALER/CAPSULE (SPIRIVA) INH SCH (07:28)
[2016-04-04] MEDS: ALBUTEROL SULFATE 2.5 MG/0.5 ML INH NEB SOLN INH SCH ×3 (07:30→20:00)
[2016-04-04] MEDS: HumaLOG INSULIN (NovoLOG) PER UNIT SC SCH ×4 (08:06→20:26)
[2016-04-04 08:51] VITALS: BP 148/80
--- NOTE | 2016-04-04 09:39 | IPNPDOC ---
Date Seen The patient was seen on 04/04/16. Progress Note DATE OF ENCOUNTER: 04/04/2016 SUBJECTIVE: Mr. Snyder was seen this morning at bedside. He reports that he didn' t sleep well although it wasn't due to his breathing or pain. He states that he just couldn't get comfortable. Otherwise, no complaints. He reports that his breathing is stable this morning. No chest pain, chest pressure or palpitations. He denies any nausea, vomiting, abdominal pain, diarrhea, fevers, chills. He had hemodialysis yesterday where 1.5L was removed. He states that appetite isn't the greatest after HD, but otherwise he is eating ok. No lightheadedness or dizziness. OBJECTIVE: Vital Signs Date Time Temp Pulse Resp B/P Pulse Ox O2 Delivery O2 Flow Rate FiO2 04/04/16 08:51 148/80 04/04/16 08:43 72 20 78 Nasal Cannula 3.0 04/04/16 06:00 97.5 I&O- Last 24 Hours up to 6 AM 04/04/16 06:00 Intake Total 1290 ml Output Total 2200 ml Balance -910 ml GENERAL: Patient is alert and oriented, in no acute distress. HEENT: Normocephalic, atraumatic. Extraocular muscles are intact. Moist mucosa. NECK: Supple. Jugular veins are mildly elevated. HEART: Normal S1, S2. Regular rate and rhythm. LUNGS: Fair air movement bilaterally. No rhonchi or wheezing appreciated. ABDOMEN: Abdomen is soft. Nontender to palpation. Bowel sounds are present. No rebound, guarding or rigidity. EXTREMITIES: Trace ankle/foot edema. No cyanosis. Positive pedal pulses bilaterally. SKIN: Warm and dry. No rashes noted. NEUROLOGIC: No focal deficits. Moving all extremities. LABORATORY DATA: 04/04/16 06:23 ASSESSMENT AND PLAN: Mr. Snyder is a 75 year old male with past medical history significant for chronic kidney disease stage III, diastolic heart failure, chronic lung disease from occupational exposure with 3 L home O2, hypertension, gout, coronary artery disease with history of [place], diabetes mellitus type 2, hyperlipidemia, BPH, history of GI bleed and gastritis and sleep apnea not on CPAP who presented due to hypoglycemia, found to be in acute on chronic renal failure with partial small bowel obstruction. Bowel obstruction has resolved and patient tolerating oral diet. Renal function did not improve, he was becoming fluid overloaded and subsequently started on hemodialysis. 1. End stage renal disease, now requiring hemodialysis. He originally presented with acute on chronic kidney disease which has advanced to end-stage as his renal function did not respond to IV fluids and then he became fluid overloaded. He had hemodialysis yesterday where 1.5L was removed, which was well tolerated. Volume status is improved and electrolytes are stable. Continue with Friday, Friday, Friday schedule. 2. Acute on chronic diastolic heart failure, most likely secondary to advanced kidney disease and IV fluids. Volume status is improving with hemodialysis. Respiratory status is stable and he is on baseline oxygen requirements. 3. Hypertension. Blood pressure is stable. Continue Norvasc 10mg daily, labetalol 300mg BID, Isordil 20mg TID, hydralazine 50mg TID, clonidine 0.1 BID and terazosin 5mg qhs. His home doses of hydrochlorothiazide, Lasix and losartan were held on admission secondary to acute kidney injury. 4. Anemia in chronic kidney disease. Hemoglobin is currently 9.1. He was given a dose of Aranesp on Friday and he received Venofer yesterday. No signs of acute bleeding. 5. Generalized weakness and deconditioning. Patient will benefit from further physical therapy. He will need short term rehab. GME ATTESTATION GME ATTESTATION My preceptor for this patient encounter was physically present in the building during the encounter and was fully available. As needed, all aspects of the patient interview, examination, medical decision making process, and medical care plan development were reviewed and approved by the preceptor. Preceptor is aware and concurs with the plan as stated in the body of this note and will attest to such by his/her cosignature. ATTENDING NOTE Nephrology: Pt was examined at bedside during work rounds. No HD today. Next HD session tomorrow for 3.5hr with F180 dialyzer and UF Goal of 2L. Rest of plan as per resident's note. JAKOB ARRIAZA DO Apr 04, 2016 09:39 INGRID MAY MD Apr 04, 2016 22:07
[2016-04-04] MEDS: **hydrALAZINE** 50 MG TAB PO SCH ×3 (10:27→20:37)
[2016-04-04] MEDS: amLODIPine 10 MG TAB PO SCH (10:27)
[2016-04-04] MEDS: ASPIRIN 81 MG ENTERIC TAB PO SCH (10:27)
[2016-04-04] MEDS: CLOPIDOGREL 75 MG TAB PO SCH (10:27)
[2016-04-04] MEDS: PANTOPRAZOLE 40MG TAB (PROTONIX) PO SCH (10:28)
[2016-04-04] MEDS: VITAMIN D 1,000 INTERNATIONAL UNITS TABLET PO SCH (10:29)
[2016-04-04] MEDS: LABETALOL 100 MG TAB PO SCH ×2 (10:29→20:38)
[2016-04-04] MEDS: cloNIDine 0.1 MG TAB PO SCH ×3 (10:30→20:37)
[2016-04-04] MEDS: MIRALAX *UNIT DOSE* 17GM PACKET PO SCH (10:31)
[2016-04-04] MEDS: FERROUS SULFATE 325MG TAB PO SCH ×2 (10:31→20:35)
[2016-04-04] MEDS: ATORVASTATIN 20 MG TAB PO SCH (10:31)
[2016-04-04] MEDS: MULTIVITAMINS/MINERALS THERAP 1 TAB PO SCH (10:31)
[2016-04-04] MEDS: HEPARIN SOD (PORCINE) 5000 UNITS/ML VIAL SQ SCH ×2 (10:32→20:35)
[2016-04-04] MEDS: DRONABINOL 2.5 MG CAP (MARINOL) PO SCH ×3 (10:40→20:36)
[2016-04-04] MEDS: SENOKOT S TAB PO SCH ×2 (10:42→20:36)
[2016-04-04] MEDS: ACETAMINOPHEN TAB 650MG DOSE (2X325MG) PO PRN (10:43)
[2016-04-04 12:10] VITALS: BP 184/52
[2016-04-04 14:00] VITALS: BP 146/68
--- NOTE | 2016-04-04 16:22 | IPN ---
DATE: 04/04/2016 A 75-year-old gentleman seen at bedside resting comfortably. No chest pain. No nausea or vomiting. OBJECTIVE: Temperature is 97.3, pulse 72, respiratory rate is 18, blood pressure 182/80, SPO2 is 96% on 3 liters. General: The patient appears to be in no acute distress. He is alert. HEENT: Unremarkable. Lungs: Clear. Heart: Regular rate and rhythm. Abdomen is obese, soft. Extremities: Some mild edema at the ankles. No calf tenderness. LABORATORY DATA: White count is 8.9, hemoglobin 9.1, platelets 292. Sodium 141, potassium 3.9, chloride 103, bicarbonate 31, anion gap 7, BUN 16, creatinine 2.2 down from 2.84, glucose is 140, phosphorus 2.9. ASSESSMENT AND PLAN: 1. Acute kidney injury superimposed on chronic kidney disease. Appreciate nephrology's input. He did have dialysis yesterday. 2. Previous ileus, resolved. Tolerating diet. 3. Acute on chronic congestive heart failure. Tolerating diet. We will continue to monitor his intake and output, daily weight and appreciate dialysis per nephrology. 3. Occupational lung disease, chronic and stable. Continue Symbicort, atropine and albuterol. 4. Diabetes. Continue with fingersticks before food and at bedtime. Consistent carbohydrate diet. Sliding scale for coverage. 5. Chronic anemia. Stable, multifactorial and likely related to his renal disease. 6. Morbid obesity, which is chronic and complicates his medical care. 7. Obstructive sleep apnea, stable. 8. Gait instability, chronic. Physical therapy is on board. 9. Coronary artery disease with [place] artery. Continue with beta nel. 10. Hypertension. I did increase his hydralazine today. 11. Protein-calorie malnutrition. Poor intake. Percutaneous endoscopic gastrostomy (PEG) tube was discussed previously. However, the patient is trying to modify his diet appropriately. 12. Deep vein thrombosis (DVT) prophylaxis. Continue with heparin. DISPOSITION: He is currently being looked at for possible subacute rehabilitation.
[2016-04-04] MEDS: hydrOXYzine 50 MG TAB PO SCH (20:36)
[2016-04-04] MEDS: diphenhydrAMINE 25 MG CAP PO PRN (20:36)
[2016-04-04] MEDS: TERAZOSIN 5 MG CAP PO SCH (20:37)
[2016-04-04 22:00] VITALS: BP 174/76
[2016-04-05] MEDS: ALBUTEROL SULFATE 2.5 MG/0.5 ML INH NEB SOLN NEB PRN (04:12)
[2016-04-05] MEDS: MIRALAX *UNIT DOSE* 17GM PACKET PO SCH (05:39)
[2016-04-05] MEDS: ASPIRIN 81 MG ENTERIC TAB PO SCH (05:39)
[2016-04-05] MEDS: VITAMIN D 1,000 INTERNATIONAL UNITS TABLET PO SCH (05:39)
[2016-04-05] MEDS: HEPARIN SOD (PORCINE) 5000 UNITS/ML VIAL SQ SCH ×2 (05:39→22:32)
[2016-04-05] MEDS: DRONABINOL 2.5 MG CAP (MARINOL) PO SCH ×3 (05:40→22:34)
[2016-04-05] MEDS: CLOPIDOGREL 75 MG TAB PO SCH (05:41)
[2016-04-05] MEDS: amLODIPine 10 MG TAB PO SCH (05:41)
[2016-04-05] MEDS: **hydrALAZINE** 50 MG TAB PO SCH ×3 (05:41→22:33)
[2016-04-05] MEDS: MULTIVITAMINS/MINERALS THERAP 1 TAB PO SCH (05:41)
[2016-04-05] MEDS: ISOSORBIDE DIN. (ISORDIL) 20 MG TAB PO SCH ×3 (05:41→17:26)
[2016-04-05] MEDS: FERROUS SULFATE 325MG TAB PO SCH ×2 (05:41→22:32)
[2016-04-05] MEDS: PANTOPRAZOLE 40MG TAB (PROTONIX) PO SCH (05:42)
[2016-04-05] MEDS: SENOKOT S TAB PO SCH ×2 (05:42→22:32)
[2016-04-05] MEDS: LABETALOL 100 MG TAB PO SCH ×2 (05:42→22:33)
[2016-04-05] MEDS: ATORVASTATIN 20 MG TAB PO SCH (05:42)
[2016-04-05] MEDS: cloNIDine 0.1 MG TAB PO SCH ×3 (05:45→22:34)
[2016-04-05 06:00] VITALS: BP 156/76
[2016-04-05 06:47] LABS: MEAN CORPUSCULAR HEMOGLOBIN 27.2 pg (27.0-33.0); MEAN CORPUSCULAR HGB CONC 30.9 g/dl (32.0-36.5); MEAN CORPUSCULAR VOLUME 88.1 fl (80.0-96.0); RED CELL DISTRIBUTION WIDTH 16.2 % (11.5-14.5); WHITE BLOOD COUNT 9.8 K/mm3 (4.0-10.0)
[2016-04-05 07:01] LABS: ALBUMIN 2.5 GM/DL (3.2-5.2); CALCIUM LEVEL 9.5 MG/DL (8.8-10.2); CREATININE FOR GFR 2.93 MG/DL (0.70-1.30); GLOMERULAR FILTRATION RATE 22.3 (>42); PHOSPHORUS LEVEL 3.6 MG/DL (2.5-4.9); POTASSIUM SERUM 4.1 MEQ/L (3.5-5.1)
[2016-04-05] MEDS: TIOTROPIUM INHALER/CAPSULE (SPIRIVA) INH SCH (07:06)
[2016-04-05] MEDS: SYMBICORT 160/4.5MCG INHALER 6GM INH SCH ×2 (07:06→20:51)
[2016-04-05] MEDS: ALBUTEROL SULFATE 2.5 MG/0.5 ML INH NEB SOLN INH SCH ×3 (07:06→20:51)
[2016-04-05] MEDS: HumaLOG INSULIN (NovoLOG) PER UNIT SC SCH ×4 (08:02→21:00)
[2016-04-05] MEDS ORDERED: HEPARIN 1,000 UNITS/ML 10ML VIAL (FOR RADIOLOGY& DIALYSIS ONLY) IV ONE (10:00)
[2016-04-05] MEDS ORDERED: HEPARIN 1,000 UNITS/ML 10ML VIAL (FOR RADIOLOGY& DIALYSIS ONLY) XX ONE (10:00)
--- NOTE | 2016-04-05 10:49 | IPN ---
DATE: 04/05/2016 75-year-old male seen at bedside. No overnight issues reported. He is resting comfortably. No chest pain. No nausea or vomiting. No shortness of breath. He is due for dialysis today. OBJECTIVE: Temperature is 97.3, pulse 74, respiratory rate is 20, blood pressure (BP) 156/76, SpO2 is 96% on 3 liters. General: The patient appears to be in no acute distress. Is alert, oriented. HEENT: Unremarkable. Lungs: Intermittent wheeze clears with cough. Heart: Regular rate and rhythm. Abdomen: Soft, obese. Extremities: He does have some trace edema but no calf tenderness. LABORATORY DATA: White count is 9.8, hemoglobin 8.6, platelets 291. Sodium 140, potassium 4.1, chloride 102, bicarbonate 30, anion gap 8, BUN is 24, creatinine is 2.93, glucose 149, calcium is 9.5, phosphorus 3.6, albumin is 2.5. ASSESSMENT AND PLAN: 1. Acute kidney injury superimposed on chronic kidney disease (CKD). Appreciate nephrology's input. He is scheduled for dialysis today. 2. Previous ileus, which is resolved, and tolerating diet. 3. Acute on chronic congestive heart failure (CHF). Tolerating diet. Will continue to monitor intake and output, daily weights, and dialysis. 4. Occupational lung disease, chronic and stable. Continue Symbicort, albuterol and atropine inhalers. 5. Diabetes, type 2. However, will continue with fingersticks before meals and nightly, sliding scale coverage and consistent carbohydrate diet. 6. Anemia. Chronic in nature, multifactorial, likely related underlying renal disease. 7. Morbid obesity. Is chronic and complicates medical care. 8. Obstructive sleep apnea, stable. 9. Gait instability, chronic. Physical therapy is on board and he does have some deconditioning issues that were currently working through. 10. Coronary artery disease with [place] artery, stable on beta-nel. 11. Hypertension. We have made some modifications of his blood pressure medication. 13. Protein calorie malnutrition with poor oral intake. Percutaneous endoscopic gastrostomy (PEG) tube has been discussed. He is wanting continue to modify his diet. Will continue to follow. 14. Deep venous thrombosis (DVT) prophylaxis with subcutaneous heparin. DISPOSITION: Currently being evaluated for possible subacute rehabilitation.
--- NOTE | 2016-04-05 12:03 | IPNPDOC ---
Date Seen The patient was seen on 04/05/16. Progress Note DATE OF ENCOUNTER: 04/05/2016 SUBJECTIVE: Mr. Snyder was seen this morning during hemodialysis. He is reporting some shortness of breath this morning, which will need to be reassessed after he completes dialysis. No chest pain, chest pressure or palpitations. He denies any nausea, vomiting, abdominal pain, diarrhea, fevers, chills. Appetite is improved. He is tolerating hemodialysis thus far, vitals are stable. OBJECTIVE: Vital Signs Date Time Temp Pulse Resp B/P Pulse Ox O2 Delivery O2 Flow Rate FiO2 04/05/16 09:32 Nasal Cannula 3.0 04/05/16 06:00 97.3 74 20 156/76 96 I&O- Last 24 Hours up to 6 AM 04/05/16 06:00 Intake Total 1080 ml Output Total 475 ml Balance 605 ml GENERAL: Patient is alert and oriented, in no acute distress. HEENT: Normocephalic, atraumatic. Extraocular muscles are intact. Moist mucosa. NECK: Supple. Jugular veins are mildly elevated. Right IJ dialysis catheter in place. HEART: Normal S1, S2. Regular rate and rhythm. LUNGS: Fair air movement bilaterally. Coarse breath sounds. ABDOMEN: Abdomen is soft. Nontender to palpation. Bowel sounds are present. No rebound, guarding or rigidity. EXTREMITIES: Trace ankle/foot edema. No cyanosis. Positive pedal pulses bilaterally. SKIN: Warm and dry. No rashes noted. NEUROLOGIC: No focal deficits. Moving all extremities. LABORATORY DATA: 04/05/16 06:23 ASSESSMENT AND PLAN: Mr. Snyder is a 75 year old male with past medical history significant for chronic kidney disease stage III, diastolic heart failure, chronic lung disease from occupational exposure with 3 L home O2, hypertension, gout, coronary artery disease with history of [place], diabetes mellitus type 2, hyperlipidemia, BPH, history of GI bleed and gastritis and sleep apnea not on CPAP who presented due to hypoglycemia, found to be in acute on chronic renal failure with partial small bowel obstruction. Bowel obstruction has resolved and patient tolerating oral diet. Renal function did not improve, he was becoming fluid overloaded and subsequently started on hemodialysis. 1. End stage renal disease, now requiring hemodialysis. He originally presented with acute on chronic kidney disease which has advanced to end-stage as his renal function did not respond to IV fluids or Lasix. Volume status is improved and electrolytes are stable. He is being dialyzed today with a goal of removing 2 liters. Continue with Friday, Friday, Friday schedule. 2. Acute on chronic diastolic heart failure, most likely secondary to advanced kidney disease and IV fluids. Volume status is improving with hemodialysis. Respiratory status is improving and he is on baseline oxygen requirements. 3. Hypertension. Continue Norvasc 10mg daily, labetalol 300mg BID, Isordil 20mg TID, hydralazine 50mg TID, clonidine 0.1 BID and terazosin 5mg qhs. His home doses of hydrochlorothiazide, Lasix and losartan were held on admission secondary to acute kidney injury and should continue to be held. We will see over the next few weeks how his renal function responds to dialysis. 4. Anemia in chronic kidney disease. Hemoglobin is currently 8.6. He was given a dose of Aranesp on 04/01 and he received Venofer 04/03. No signs of acute bleeding. 5. Generalized weakness and deconditioning. Patient will benefit from further physical therapy. He will need short term rehab. GME ATTESTATION GME ATTESTATION My preceptor for this patient encounter was physically present in the building during the encounter and was fully available. As needed, all aspects of the patient interview, examination, medical decision making process, and medical care plan development were reviewed and approved by the preceptor. Preceptor is aware and concurs with the plan as stated in the body of this note and will attest to such by his/her cosignature. ATTENDING NOTE Nephrology: Pt was examined during HD, tolerating the procedure well. UF Goal 2L. cont MWF schedule for now. JAKOB ARRIAZA DO Apr 05, 2016 12:03 INGRID MAY MD Apr 07, 2016 22:03
[2016-04-05 14:00] VITALS: BP 130/62
[2016-04-05 22:00] VITALS: BP 155/72
[2016-04-05] MEDS: hydrOXYzine 50 MG TAB PO SCH (22:32)
[2016-04-05] MEDS: TERAZOSIN 5 MG CAP PO SCH (22:34)
[2016-04-05] MEDS: diphenhydrAMINE 25 MG CAP PO PRN (22:34)
[2016-04-06 06:00] VITALS: BP 147/70
[2016-04-06] MEDS: ALBUTEROL SULFATE 2.5 MG/0.5 ML INH NEB SOLN INH SCH ×3 (06:07→20:00)
[2016-04-06 06:34] LABS: MEAN CORPUSCULAR HEMOGLOBIN 26.5 pg (27.0-33.0); MEAN CORPUSCULAR HGB CONC 30.2 g/dl (32.0-36.5); MEAN CORPUSCULAR VOLUME 87.6 fl (80.0-96.0); RED CELL DISTRIBUTION WIDTH 16.5 % (11.5-14.5); WHITE BLOOD COUNT 9.4 K/mm3 (4.0-10.0)
[2016-04-06] MEDS: ISOSORBIDE DIN. (ISORDIL) 20 MG TAB PO SCH ×3 (06:35→18:40)
[2016-04-06 07:00] LABS: ALBUMIN 2.5 GM/DL (3.2-5.2); CALCIUM LEVEL 9.6 MG/DL (8.8-10.2); CREATININE FOR GFR 2.37 MG/DL (0.70-1.30); GLOMERULAR FILTRATION RATE 28.5 (>42); PHOSPHORUS LEVEL 3.8 MG/DL (2.5-4.9); POTASSIUM SERUM 4.6 MEQ/L (3.5-5.1)
[2016-04-06] MEDS: TIOTROPIUM INHALER/CAPSULE (SPIRIVA) INH SCH (07:39)
[2016-04-06] MEDS: SYMBICORT 160/4.5MCG INHALER 6GM INH SCH ×2 (07:39→19:28)
--- NOTE | 2016-04-06 08:13 | IPN ---
DATE: 04/06/2016 75-year-old gentleman seen at bedside. No overnight issues reported. He had dialysis yesterday and tolerated the dialysis without any further issues. No chest pain, nausea, vomiting, shortness of breath. He is tolerating meals. OBJECTIVE: Temperature 97.6, pulse 74, respiratory rate 20, blood pressure (BP) 147/70, SPO2 is 97% on 2-3 liters. HEENT: Unremarkable. Lungs: Diminished bibasilar breath sounds, otherwise clear. Heart: Regular rate and rhythm. Abdomen is obese, soft. Extremities: No edema. No calf tenderness. LABS: White count 9.4, hemoglobin 9.0, platelets 302,000. Sodium 141, potassium 4.6, chloride 101, bicarb 32, anion gap 8, BUN is 18, creatinine 2.37 down from 2.93, glucose 160. ASSESSMENT/PLAN: 1. Acute kidney injury superimposed on chronic kidney disease (CKD). Appreciate nephrology's input. He did have hemodialysis yesterday. Will continue to follow renal profile daily. 2. Previous ileus on admission. This is resolved and he is tolerating a diet. 3. Acute on chronic congestive heart failure. Tolerating a diet and will continue to monitor ins and outs, daily weight and dialysis. He appears to be compensated better at this point. 4. Occupational lung disease, chronic. Continue Symbicort, albuterol and atropine inhalers and O2 supplementation. 5. Diabetes type 2. Continue fingersticks before meals and at bedtime, sliding scale coverage and consistent carbohydrate diet. 6. Anemia. This chronic in nature and multifactorial. Likely related to the renal disease. Will continue to follow. Appears to be stable. 7. Morbid obesity which complicates his medical care. 8. Obstructive sleep apnea, stable. 9. Gait instability, chronic. Physical therapy was unable to work with him yesterday after he got back from dialysis. He was exhausted, will try to reattempt. 10. Coronary artery disease with [place] artery, stable on beta-nel. 11. Hypertension. Will continue to follow. 12. Protein calorie malnutrition and poor intake. Percutaneous gastrostomy has been discussed and he is wanting to continue to modify his diet before he makes a decision on this. 13. Deep vein thrombosis (DVT prophylaxis with subcutaneous heparin. DISPOSITION: The patient is currently awaiting subacute rehabilitation.
[2016-04-06] MEDS: DRONABINOL 2.5 MG CAP (MARINOL) PO SCH ×3 (08:16→22:49)
[2016-04-06] MEDS: HEPARIN SOD (PORCINE) 5000 UNITS/ML VIAL SQ SCH ×2 (08:16→22:46)
[2016-04-06] MEDS: MIRALAX *UNIT DOSE* 17GM PACKET PO SCH (08:16)
[2016-04-06] MEDS: HumaLOG INSULIN (NovoLOG) PER UNIT SC SCH ×4 (08:16→20:34)
[2016-04-06] MEDS: CLOPIDOGREL 75 MG TAB PO SCH (08:17)
[2016-04-06] MEDS: VITAMIN D 1,000 INTERNATIONAL UNITS TABLET PO SCH (08:17)
[2016-04-06] MEDS: SENOKOT S TAB PO SCH ×2 (08:17→22:49)
[2016-04-06] MEDS: LABETALOL 100 MG TAB PO SCH ×2 (08:17→22:47)
[2016-04-06] MEDS: ATORVASTATIN 20 MG TAB PO SCH (08:17)
[2016-04-06] MEDS: PANTOPRAZOLE 40MG TAB (PROTONIX) PO SCH (08:17)
[2016-04-06] MEDS: amLODIPine 10 MG TAB PO SCH (08:17)
[2016-04-06] MEDS: MULTIVITAMINS/MINERALS THERAP 1 TAB PO SCH (08:17)
[2016-04-06] MEDS: FERROUS SULFATE 325MG TAB PO SCH ×2 (08:17→22:48)
[2016-04-06] MEDS: ASPIRIN 81 MG ENTERIC TAB PO SCH (08:17)
[2016-04-06] MEDS: **hydrALAZINE** 50 MG TAB PO SCH ×3 (08:18→22:48)
[2016-04-06] MEDS: cloNIDine 0.1 MG TAB PO SCH ×3 (08:18→22:48)
--- NOTE | 2016-04-06 11:39 | IPNPDOC ---
Date Seen The patient was seen on 04/06/16. Progress Note DATE OF ENCOUNTER: 04/06/2016 SUBJECTIVE: Mr. Snyder was seen this morning at bedside. He had hemodialysis yesterday where 2 L of fluid was removed. He reports that he was a little tired after dialysis, but otherwise it went well. He reports that his shortness of breath has improved. His appetite is good. No acute overnight issues, he reports that he slept well. He denies any chest pain, chest pressure, palpitations, nausea, vomiting, abdominal pain, diarrhea, fevers, chills. OBJECTIVE: Vital Signs Date Time Temp Pulse Resp B/P Pulse Ox O2 Delivery O2 Flow Rate FiO2 04/06/16 08:17 74 153/72 04/06/16 06:00 97.6 20 97 Nasal Cannula 3.0 I&O- Last 24 Hours up to 6 AM 04/06/16 06:00 Intake Total 1800 ml Output Total 2150 ml Balance -350 ml GENERAL: Patient is alert and oriented, in no acute distress. HEENT: Normocephalic, atraumatic. Extraocular muscles are intact. Moist mucosa. NECK: Supple. Jugular veins are mildly elevated. Right IJ dialysis catheter in place. HEART: Normal S1, S2. Regular rate and rhythm. LUNGS: Fair air movement bilaterally. No rhonchi or wheezing appreciated. ABDOMEN: Abdomen is soft. Nontender to palpation. Bowel sounds are present. No rebound, guarding or rigidity. EXTREMITIES: Trace foot edema. No cyanosis. Positive pedal pulses bilaterally. SKIN: Warm and dry. No rashes noted. NEUROLOGIC: No focal deficits. Moving all extremities. LABORATORY DATA: 04/06/16 06:23 ASSESSMENT AND PLAN: Mr. Snyder is a 75 year old male with past medical history significant for chronic kidney disease stage III, diastolic heart failure, chronic lung disease from occupational exposure with 3 L home O2, hypertension, gout, coronary artery disease with history of [place], diabetes mellitus type 2, hyperlipidemia, BPH, history of GI bleed and gastritis and sleep apnea not on CPAP who presented due to hypoglycemia, found to be in acute on chronic renal failure with partial small bowel obstruction. Bowel obstruction has resolved and patient tolerating oral diet. Renal function did not improve, he was becoming fluid overloaded and subsequently started on hemodialysis. 1. End stage renal disease, requiring hemodialysis. He originally presented with acute on chronic kidney disease which has advanced to end-stage as his renal function did not respond to IV fluids or Lasix. Volume status is improved and electrolytes are stable. Continue with Friday, Friday, Friday schedule. 2. Acute on chronic diastolic heart failure. Volume status has improved with hemodialysis. Respiratory status is also improved and he is on baseline oxygen requirements. 3. Hypertension. Continue Norvasc 10mg daily, labetalol 300mg BID, Isordil 20mg TID, hydralazine 50mg TID, clonidine 0.1 BID and terazosin 5mg qhs. His home doses of hydrochlorothiazide, Lasix and losartan were held on admission and should not be resumed. We will see over the next few weeks how his renal function responds to dialysis. 4. Anemia in chronic kidney disease. Hemoglobin is currently 9.0. He was given a dose of Aranesp on 04/01 and Venofer was initiated on 04/03. No signs of acute bleeding. 5. Generalized weakness and deconditioning. Continue working with physical therapy. He will need at least short term rehab. GME ATTESTATION GME ATTESTATION My preceptor for this patient encounter was physically present in the building during the encounter and was fully available. As needed, all aspects of the patient interview, examination, medical decision making process, and medical care plan development were reviewed and approved by the preceptor. Preceptor is aware and concurs with the plan as stated in the body of this note and will attest to such by his/her cosignature. JAKOB ARRIAZA DO Apr 06, 2016 11:39
[2016-04-06 14:00] VITALS: BP 144/69
[2016-04-06 22:00] VITALS: BP 128/60
[2016-04-06] MEDS: hydrOXYzine 50 MG TAB PO SCH (22:48)
[2016-04-06] MEDS: TERAZOSIN 5 MG CAP PO SCH (22:49)
[2016-04-07] MEDS: ALBUTEROL SULFATE 2.5 MG/0.5 ML INH NEB SOLN NEB PRN (03:14)
[2016-04-07 06:00] VITALS: BP 142/67
[2016-04-07 06:34] LABS: MEAN CORPUSCULAR HEMOGLOBIN 26.7 pg (27.0-33.0); MEAN CORPUSCULAR HGB CONC 30.3 g/dl (32.0-36.5); RED CELL DISTRIBUTION WIDTH 16.6 % (11.5-14.5); WHITE BLOOD COUNT 9.8 K/mm3 (4.0-10.0)
[2016-04-07] MEDS: ISOSORBIDE DIN. (ISORDIL) 20 MG TAB PO SCH ×3 (06:43→18:08)
[2016-04-07 06:47] LABS: ALBUMIN 2.5 GM/DL (3.2-5.2); CREATININE FOR GFR 3.12 MG/DL (0.70-1.30); GLOMERULAR FILTRATION RATE 20.7 (>42); PHOSPHORUS LEVEL 4.6 MG/DL (2.5-4.9); POTASSIUM SERUM 4.6 MEQ/L (3.5-5.1)
[2016-04-07] MEDS: TIOTROPIUM INHALER/CAPSULE (SPIRIVA) INH SCH (07:13)
[2016-04-07] MEDS: SYMBICORT 160/4.5MCG INHALER 6GM INH SCH ×2 (07:13→18:22)
[2016-04-07] MEDS: ALBUTEROL SULFATE 2.5 MG/0.5 ML INH NEB SOLN INH SCH ×2 (07:14→12:22)
--- NOTE | 2016-04-07 09:20 | IPNPDOC ---
Date Seen The patient was seen on 04/07/16. Progress Note Hospitalist Progress Note Subjective: Patient is overall feeling well today. He does note that he has seen a significant decrease in urination and is curious about this. Objective: Physical Exam: Vitals: Vital Sign - Last 24 Hours 04/06/16 04/06/16 04/06/16 04/06/16 11:46 13:44 14:00 18:40 Temp 98.3 Pulse 75 Resp 20 B/P 152/70 144/69 152/70 Pulse Ox 98 O2 Delivery Nasal Cannula Nasal Cannula O2 Flow Rate 3.0 3.0 04/06/16 04/06/16 04/06/16 04/07/16 21:00 22:00 22:47 06:00 Temp 97.8 97.5 Pulse 68 68 76 Resp 20 20 B/P 128/60 128/66 142/67 Pulse Ox 96 98 O2 Delivery Nasal Cannula Nasal Cannula Nasal Cannula O2 Flow Rate 3.0 3.0 3.0 04/07/16 06:43 B/P 142/67 General: Awake, alert, no acute distress HEENT: Extraocular movements intact, normocephalic, atraumatic CV: Regular rate and rhythm, no murmurs rubs or gallops Lungs: Clear To auscultation bilaterally Abd: Soft, nontender, normal bowel sounds Extremities: No edema Neuro: Alert and oriented 3, normal speech Psych: Normal mood and affect Labs and Imaging: Laboratory Tests 04/07/16 06:14 Anion Gap 8, Red Blood Count 3.21 L, Mean Corpuscular Volume 88.0, Mean Corpuscular Hemoglobin 26.7 L, Mean Corpuscular Hemoglobin Concent 30.3 L, Red Cell Distribution Width 16.6 H Assessment and Plan: 75-year-old male with chronic kidney disease, chronic lung disease from occupational exposure on 3 L home O2, hypertension, gout, coronary artery disease with [place], chronic diastolic CHF, diabetes mellitus type 2, BPH, gastritis , hyperlipidemia, history of PE, history of GI bleed, sleep apnea not on CPAP initially admitted secondary to hypoglycemia and nausea and vomiting that was secondary to a partial SBO. The SBO and hypoglycemia have now resolved. When the patient was first admitted, he had some acute on chronic kidney disease thought to be secondary to his volume depletion, but it now appears that he has progressed to end-stage renal disease and he has been started on chronic hemodialysis. At this point, he is awaiting subacute rehabilitation. 1. End-stage renal disease on hemodialysis: Management as per nephrology 2. Anemia of chronic disease: Hemoglobin is stable. Ashtyn as per nephrology. Continue ferrous sulfate. 3. 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 Continue home Symbicort, albuterol, Spiriva. 4. Diabetes mellitus type 2: Sliding scale insulin while in-house. Fingersticks currently controlled. 5. Hypertension: Continue imdur, labetalol, hydralazine, Norvasc, clonidine 6. Coronary artery disease with [place], hyperlipidemia: No current chest pain. Continue home aspirin, Plavix, statin, beta nel. 7. Routine calorie malnutrition and poor intake, Gastritis: PEG tube has been discussed, but at this time, the patient wants to continue to modify his diet before he makes a decision on this. Continue Marinol, PPI. 8. Chronic diastolic CHF: Currently compensated. 9. BPH: Continue Hytrin. DVT prophylaxis: Heparin Dispo: awaiting subacute rehabilitation VS, I&O, 24H, Fishbone VS, I&O, 24H, Fishbone Vital Signs Date Time Temp Pulse Resp B/P Pulse Ox O2 Delivery O2 Flow Rate FiO2 04/07/16 06:43 142/67 04/07/16 06:00 97.5 76 20 98 Nasal Cannula 3.0 I&O- Last 24 Hours up to 6 AM 04/07/16 06:00 Intake Total 900 ml Output Total 375 ml Balance 525 ml Laboratory Tests 2 04/06/16 11:44: Bedside Glucose (Misc Panel) 160H 04/06/16 16:47: Bedside Glucose (Misc Panel) 176H 04/06/16 20:17: Bedside Glucose (Misc Panel) 179H 04/07/16 06:14: Albumin 2.5L, Blood Urea Nitrogen 29#H, Creatinine 3.12H, Sodium Level 140, Potassium Level 4.6, Chloride Level 101, Carbon Dioxide Level 31, Anion Gap 8, Calcium Level 10.0, Glomerular Filtration Rate 20.7L, Phosphorus Level 4.6# Laboratory Tests 04/07/16 06:14 Anion Gap 8, Red Blood Count 3.21 L, Mean Corpuscular Volume 88.0, Mean Corpuscular Hemoglobin 26.7 L, Mean Corpuscular Hemoglobin Concent 30.3 L, Red Cell Distribution Width 16.6 H BONNY PAULA Apr 07, 2016 09:20
[2016-04-07] MEDS: HumaLOG INSULIN (NovoLOG) PER UNIT SC SCH ×4 (09:56→20:55)
[2016-04-07] MEDS: HEPARIN SOD (PORCINE) 5000 UNITS/ML VIAL SQ SCH ×2 (09:56→21:43)
[2016-04-07] MEDS: MIRALAX *UNIT DOSE* 17GM PACKET PO SCH (09:56)
[2016-04-07] MEDS: FERROUS SULFATE 325MG TAB PO SCH ×2 (09:57→21:46)
[2016-04-07] MEDS: CLOPIDOGREL 75 MG TAB PO SCH (09:57)
[2016-04-07] MEDS: ASPIRIN 81 MG ENTERIC TAB PO SCH (09:57)
[2016-04-07] MEDS: cloNIDine 0.1 MG TAB PO SCH ×3 (09:57→21:47)
[2016-04-07] MEDS: DRONABINOL 2.5 MG CAP (MARINOL) PO SCH ×3 (09:57→21:47)
[2016-04-07] MEDS: ATORVASTATIN 20 MG TAB PO SCH (09:57)
[2016-04-07] MEDS: SENOKOT S TAB PO SCH ×2 (09:57→21:43)
[2016-04-07] MEDS: PANTOPRAZOLE 40MG TAB (PROTONIX) PO SCH (09:57)
[2016-04-07] MEDS: VITAMIN D 1,000 INTERNATIONAL UNITS TABLET PO SCH (09:57)
[2016-04-07] MEDS: amLODIPine 10 MG TAB PO SCH (09:57)
[2016-04-07] MEDS: MULTIVITAMINS/MINERALS THERAP 1 TAB PO SCH (09:57)
[2016-04-07] MEDS: **hydrALAZINE** 50 MG TAB PO SCH ×3 (09:58→21:44)
[2016-04-07] MEDS: LABETALOL 100 MG TAB PO SCH ×2 (09:58→21:45)
--- NOTE | 2016-04-07 12:43 | IPN ---
DATE: 04/07/2016 Mr. Snyder is seen this morning on his bedside. He is lying in the bed as usual and denies any new complaints. He has chronic dyspnea and generalized weakness. He is unable to get up from the bed himself and reports that nursing staff did not get him out of bed yesterday all day. He denies any nausea or vomiting and reports improved appetite. On physical exam temperature 97.5 degrees Fahrenheit, heart rate 76 per minute and respiratory rate 20 per minute. Blood pressure 142/67 mmHg and oxygen saturation 98% on 3 liters oxygen. His head is atraumatic. Dialysis catheter is in place in internal jugular vein. Neck veins are not abnormally distended. Pupils are equal and reactive to light and sclera is anicteric. Ears, nose and throat are unremarkable. Heart sounds are regular and lungs with diminished breath sounds at bases. Abdomen: Obese and nontender, bowel sounds are present. Extremities have no cyanosis or clubbing. Neurologically he is awake, alert and oriented times three. Skin has no rash or ulcers. Today's labs show WBC count 9.8, hemoglobin 8.6 and hematocrit 28.3. Sodium 140, potassium 4.6. BUN 29 and creatinine 3.12. PROBLEMS: 1. Acute renal failure superimposed on chronic kidney disease: The patient most likely has end-stage renal disease and has started dialysis. He is likely to continue with dialysis for rest of his life or until he changes his mind. He is going to be scheduled for next hemodialysis on April 08, 2016. 2. Chronic hypoxemia and congestive heart failure: His volume status is reasonably well-compensated and respiratory status is at about baseline. We will continue our efforts to remove as much fluid as he can tolerate with hemodialysis treatment. 3. Anemia: His anemia is stable at present and no transfusion is indicated. He is receiving Aranesp and Venofer during dialysis. 4. Severe deconditioning: This is an ongoing issue and the patient is likely to require subacute rehab.
[2016-04-07] MEDS: hydrOXYzine 50 MG TAB PO SCH (21:44)
[2016-04-07] MEDS: TERAZOSIN 5 MG CAP PO SCH (21:46)
[2016-04-07 22:00] VITALS: BP 139/62
[2016-04-08 06:00] VITALS: BP 130/61
[2016-04-08] MEDS: ATORVASTATIN 20 MG TAB PO SCH (06:40)
[2016-04-08] MEDS: HEPARIN SOD (PORCINE) 5000 UNITS/ML VIAL SQ SCH ×2 (06:40→21:31)
[2016-04-08] MEDS: MULTIVITAMINS/MINERALS THERAP 1 TAB PO SCH (06:40)
[2016-04-08] MEDS: LABETALOL 100 MG TAB PO SCH ×2 (06:41→21:33)
[2016-04-08] MEDS: ISOSORBIDE DIN. (ISORDIL) 20 MG TAB PO SCH ×3 (06:42→18:04)
[2016-04-08] MEDS: cloNIDine 0.1 MG TAB PO SCH ×3 (06:42→21:35)
[2016-04-08] MEDS: CLOPIDOGREL 75 MG TAB PO SCH (06:43)
[2016-04-08] MEDS: **hydrALAZINE** 50 MG TAB PO SCH ×3 (06:43→21:34)
[2016-04-08] MEDS: FERROUS SULFATE 325MG TAB PO SCH ×2 (06:44→21:35)
[2016-04-08] MEDS: VITAMIN D 1,000 INTERNATIONAL UNITS TABLET PO SCH (06:44)
[2016-04-08] MEDS: DRONABINOL 2.5 MG CAP (MARINOL) PO SCH ×3 (06:45→21:36)
[2016-04-08] MEDS: SENOKOT S TAB PO SCH ×2 (06:45→21:32)
[2016-04-08] MEDS: ASPIRIN 81 MG ENTERIC TAB PO SCH (06:46)
[2016-04-08] MEDS: PANTOPRAZOLE 40MG TAB (PROTONIX) PO SCH (06:46)
[2016-04-08] MEDS: amLODIPine 10 MG TAB PO SCH (06:46)
[2016-04-08 06:52] LABS: BASO % 0.2 % (0.0-1.0); EOS # 0.5 K/mm3 (0.0-0.50); LARGE UNSTAINED CELL # 0.2 K/mm3 (0.0-0.4); LARGE UNSTAINED CELL % 1.7 % (0.0-4.0); LYMPH # 1.2 K/mm3 (1.5-4.5); LYMPH % 10.3 % (24.0-44.0); MEAN CORPUSCULAR HEMOGLOBIN 27.1 pg (27.0-33.0); MEAN CORPUSCULAR HGB CONC 30.9 g/dl (32.0-36.5); MEAN CORPUSCULAR VOLUME 87.7 fl (80.0-96.0); MONO # 0.5 K/mm3 (0.0-0.8); MONO % 5.3 % (0.0-5.0); NEUTROPHILS # 7.8 K/mm3 (1.8-7.7); NEUTROPHILS % 77.5 % (36.0-66.0); PLATELET COUNT, AUTOMATED 290 k/mm3 (150-450); RED CELL DISTRIBUTION WIDTH 16.6 % (11.5-14.5)
[2016-04-08 07:07] LABS: CALCIUM LEVEL 9.4 MG/DL (8.8-10.2); CREATININE FOR GFR 3.65 MG/DL (0.70-1.30); GLOMERULAR FILTRATION RATE 17.3 (>42); MAGNESIUM LEVEL 2.1 MG/DL (1.8-2.4)
[2016-04-08] MEDS: SYMBICORT 160/4.5MCG INHALER 6GM INH SCH ×2 (08:07→20:24)
[2016-04-08] MEDS: ALBUTEROL SULFATE 2.5 MG/0.5 ML INH NEB SOLN INH SCH ×3 (08:07→20:00)
[2016-04-08] MEDS: TIOTROPIUM INHALER/CAPSULE (SPIRIVA) INH SCH (08:07)
[2016-04-08] MEDS: HumaLOG INSULIN (NovoLOG) PER UNIT SC SCH ×4 (08:13→21:00)
[2016-04-08] MEDS: MIRALAX *UNIT DOSE* 17GM PACKET PO SCH (08:13)
[2016-04-08] MEDS ORDERED: HEPARIN 1,000 UNITS/ML 10ML VIAL (FOR RADIOLOGY& DIALYSIS ONLY) IV ONE (09:45)
[2016-04-08] MEDS ORDERED: HEPARIN 1,000 UNITS/ML 10ML VIAL (FOR RADIOLOGY& DIALYSIS ONLY) XX ONE (09:45)
--- NOTE | 2016-04-08 11:47 | IPN ---
DATE OF SERVICE: 04/08/2016 SUBJECTIVE: The patient was seen and examined at the bedside today in the morning during hemodialysis procedure. He was tolerating the hemodialysis procedure well. No active complaints at this time. REVIEW OF SYSTEMS: The patient denies any fever, chills, rigors, headache, nausea, vomiting, chest pain. Shortness of breath is significantly better with hemodialysis. He denies any nausea, vomiting, or diarrhea. He reports that his appetite is improving, and he is eating better now. Rest of review of systems is negative. OBJECTIVE: VITAL SIGNS: Temperature is 97.4 degrees Fahrenheit, blood pressure is 130/61, pulse is 71, respiratory rate of 18, saturating 96% on nasal cannula at 3 liters.. INTAKE AND OUTPUT: Urine output is not recorded. Weight on the bed scale recorded is 106 kg. PHYSICAL EXAMINATION: GENERAL: The patient is awake, alert, oriented times three, lying in bed, in no apparent distress. HEAD AND NECK EXAMINATION: Extraocular muscles intact. Pupils equally round and reactive to light. Neck is supple. There is no jugular venous distention (JVD). CARDIOVASCULAR: S1, S2, regular rate. No murmur, rub, and gallop. RESPIRATORY: Chest is clear to auscultation bilaterally. There are decreased breath sounds at the bases. ABDOMEN: Soft. Obese. Positive bowel sounds. Nontender. No organomegaly. EXTREMITIES: The patient does have a clubbing of the fingernails. There is no cyanosis, and there is trace edema of the bilateral lower extremities. CENTRAL NERVOUS SYSTEM (BOXING AND PRESSING SUPERVISOR): No focal neurological deficit. Power is 5/5 in all extremities. SKIN: No rashes and ulcers. AV ACCESS: The patient has a right internal jugular (vein) (IJ) tunneled hemodialysis catheter. LABORATORY REVIEW: CBC showed a WBC 10, hemoglobin 8.5, platelets of 290. BMP showed sodium 138, potassium 5, chloride 100, bicarbonate 32, BUN 38, creatinine 3.6, calcium 9.4, magnesium 2.1. CURRENT MEDICATIONS: The patient's medications were all reviewed by me. There is no change in the medications today as compared with yesterday. ASSESSMENT: A 75-year-old male with acute renal failure superimposed on chronic kidney disease, who has been started on hemodialysis during this admission. PLAN: 1. Acute kidney injury superimposed on chronic kidney disease. The patient has progressed into end-stage renal disease. He has been started on a regular dialysis Friday, Friday, Friday. Continue the current dialysis regimen at this time. 3.5 hours of hemodialysis. Ultrafiltration goal will be 2.5 liters today, and he is awaiting outpatient hemodialysis placement. 2. Congestive heart failure and hypoxemia. The patient's volume status is getting significantly better with hemodialysis and ultrafiltration. Ultrafiltration (UF) goal again is 2.5 liters today. His shortness of breath is significantly better. 3. Anemia in end-stage renal disease. Continue current dose of Venofer with each hemodialysis session, and he would get Aranesp 300 mcg intravenous (IV) with hemodialysis today. 4. Hypertension. The patient's blood pressure is acceptable at this time. Continue current dose of amlodipine 10 mg by mouth daily, clonidine 0.1 mg by mouth twice a day, hydralazine 100 mg by mouth three times a day, isosorbide 20 mg by mouth three times a day, labetalol 300 mg by mouth twice a day. The patient's blood pressure would also improve with hemodialysis and ultrafiltration, and slowly we shall have to titrate the antihypertensive medications down. MTDD
--- NOTE | 2016-04-08 13:51 | IPNPDOC ---
Date Seen The patient was seen on 04/08/16. Progress Note Hospitalist Progress Note Subjective: Patient is seen in dialysis; his only complaint is being cold Objective: Physical Exam: Vitals: Vital Sign - Last 24 Hours 04/07/16 04/07/16 04/07/16 04/07/16 18:08 21:00 21:44 21:45 Pulse 70 B/P 150/69 139/62 139/62 O2 Delivery Nasal Cannula O2 Flow Rate 3.0 04/07/16 04/08/16 04/08/16 04/08/16 22:00 06:00 06:41 11:50 Temp 97.3 97.4 Pulse 68 71 71 Resp 18 18 B/P 139/62 130/61 130/61 Pulse Ox 97 96 O2 Delivery Nasal Cannula Nasal Cannula Nasal Cannula O2 Flow Rate 3.0 3.0 3.0 General: Awake, alert, no acute distress HEENT: Extraocular movements intact, normocephalic, atraumatic CV: Regular rate and rhythm Lungs: Clear To auscultation bilaterally, no wheeze Abd: Soft, nontender, normal bowel sounds Extremities: No edema Neuro: Alert and oriented 3, normal speech Psych: Normal mood and affect Labs and Imaging: Laboratory Tests 04/08/16 06:21 Calcium Level 9.4, Red Blood Count 3.15 L, Mean Corpuscular Volume 87.7, Mean Corpuscular Hemoglobin 27.1, Mean Corpuscular Hemoglobin Concent 30.9 L, Red Cell Distribution Width 16.6 H, Neutrophils (%) (Auto) 77.5 H, Lymphocytes (%) ( Auto) 10.3 L, Monocytes (%) (Auto) 5.3 H, Eosinophils (%) (Auto) 5.0 H, Basophils (%) (Auto) 0.2, Neutrophils # (Auto) 7.8 H, Lymphocytes # (Auto) 1.2 L , Monocytes # (Auto) 0.5, Eosinophils # (Auto) 0.5, Basophils # (Auto) 0.0 Assessment and Plan: 75-year-old male with chronic kidney disease, chronic lung disease from occupational exposure on 3 L home O2, hypertension, gout, coronary artery disease with OR, chronic diastolic CHF, diabetes mellitus type 2, BPH, gastritis , hyperlipidemia, history of PE, history of GI bleed, sleep apnea not on CPAP initially admitted secondary to hypoglycemia and nausea and vomiting that was secondary to a partial SBO. The SBO and hypoglycemia have now resolved. When the patient was first admitted, he had some acute on chronic kidney disease thought to be secondary to his volume depletion, but it now appears that he has progressed to end-stage renal disease and he has been started on chronic hemodialysis. At this point, he is awaiting subacute rehabilitation. 1. End-stage renal disease on hemodialysis: Management as per nephrology 2. Anemia of chronic disease: Hemoglobin is stable. Emil and Jody as per nephrology. Continue ferrous sulfate. 3. 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 Continue home Symbicort, albuterol, Spiriva. 4. Diabetes mellitus type 2: Sliding scale insulin while in-house. Fingersticks currently controlled. 5. Hypertension: Continue imdur, labetalol, hydralazine, Norvasc, clonidine 6. Coronary artery disease with OR, hyperlipidemia: No current chest pain. Continue home aspirin, Plavix, statin, beta nel. 7. Protein calorie malnutrition and poor intake, Gastritis: PEG tube has been discussed, but at this time, the patient wants to continue to modify his diet before he makes a decision on this. Continue Marinol, PPI. 8. Chronic diastolic CHF: Currently compensated. 9. BPH: Continue Hytrin. DVT prophylaxis: Heparin Dispo: awaiting subacute rehabilitation VS, I&O, 24H, Fishbone VS, I&O, 24H, Fishbone Vital Signs Date Time Temp Pulse Resp B/P Pulse Ox O2 Delivery O2 Flow Rate FiO2 04/08/16 11:50 Nasal Cannula 3.0 04/08/16 06:41 71 130/61 04/08/16 06:00 97.4 18 96 I&O- Last 24 Hours up to 6 AM 04/08/16 06:00 Intake Total 360 ml Output Total 400 ml Balance -40 ml Laboratory Tests 2 04/07/16 16:38: Bedside Glucose (Misc Panel) 151H 04/07/16 20:46: Bedside Glucose (Misc Panel) 192H 04/08/16 06:21: Anion Gap 6L, White Blood Count 10.0, Red Blood Count 3.15L, Hemoglobin 8.5L, Hematocrit 27.6L, Mean Corpuscular Volume 87.7, Mean Corpuscular Hemoglobin 27.1 , Mean Corpuscular Hemoglobin Concent 30.9L, Red Cell Distribution Width 16.6H, Platelet Count 290, Neutrophils (%) (Auto) 77.5H, Lymphocytes (%) (Auto) 10.3L, Monocytes (%) (Auto) 5.3H, Eosinophils (%) (Auto) 5.0H, Basophils (%) (Auto) 0.2 , Neutrophils # (Auto) 7.8H, Lymphocytes # (Auto) 1.2L, Monocytes # (Auto) 0.5, Eosinophils # (Auto) 0.5, Basophils # (Auto) 0.0, Blood Urea Nitrogen 38H, Creatinine 3.65H, Sodium Level 138, Potassium Level 5.0, Chloride Level 100, Carbon Dioxide Level 32, Calcium Level 9.4, Glomerular Filtration Rate 17.3L, Large Unclassified Cells # 0.2, Large Unclassified Cells % 1.7, Magnesium Level 2.1 Laboratory Tests 04/08/16 06:21 Calcium Level 9.4, Red Blood Count 3.15 L, Mean Corpuscular Volume 87.7, Mean Corpuscular Hemoglobin 27.1, Mean Corpuscular Hemoglobin Concent 30.9 L, Red Cell Distribution Width 16.6 H, Neutrophils (%) (Auto) 77.5 H, Lymphocytes (%) ( Auto) 10.3 L, Monocytes (%) (Auto) 5.3 H, Eosinophils (%) (Auto) 5.0 H, Basophils (%) (Auto) 0.2, Neutrophils # (Auto) 7.8 H, Lymphocytes # (Auto) 1.2 L , Monocytes # (Auto) 0.5, Eosinophils # (Auto) 0.5, Basophils # (Auto) 0.0 BONNY PAULA Apr 08, 2016 13:51
[2016-04-08 14:00] VITALS: BP 145/67
[2016-04-08] MEDS: ACETAMINOPHEN TAB 650MG DOSE (2X325MG) PO PRN (18:03)
[2016-04-08 20:25] VITALS: O2SAT 95
[2016-04-08] MEDS: TERAZOSIN 5 MG CAP PO SCH (21:34)
[2016-04-08] MEDS: hydrOXYzine 50 MG TAB PO SCH (21:35)
[2016-04-08 22:00] VITALS: BP 140/64
[2016-04-09] MEDS: ALBUTEROL SULFATE 2.5 MG/0.5 ML INH NEB SOLN NEB PRN ×2 (01:54→04:58)
[2016-04-09 06:00] VITALS: BP 154/70
[2016-04-09] MEDS: ISOSORBIDE DIN. (ISORDIL) 20 MG TAB PO SCH (06:37)
[2016-04-09 07:07] LABS: BASO % 0.4 % (0.0-1.0); EOS # 0.4 K/mm3 (0.0-0.50); LARGE UNSTAINED CELL # 0.2 K/mm3 (0.0-0.4); LARGE UNSTAINED CELL % 2.3 % (0.0-4.0); LYMPH # 1.2 K/mm3 (1.5-4.5); MEAN CORPUSCULAR HEMOGLOBIN 26.5 pg (27.0-33.0); MEAN CORPUSCULAR HGB CONC 30.2 g/dl (32.0-36.5); MEAN CORPUSCULAR VOLUME 87.8 fl (80.0-96.0); MONO # 0.7 K/mm3 (0.0-0.8); MONO % 6.4 % (0.0-5.0); PLATELET COUNT, AUTOMATED 286 k/mm3 (150-450); WHITE BLOOD COUNT 10.5 K/mm3 (4.0-10.0)
[2016-04-09 07:19] LABS: CALCIUM LEVEL 9.1 MG/DL (8.8-10.2); CREATININE FOR GFR 2.67 MG/DL (0.70-1.30); GLOMERULAR FILTRATION RATE 24.8 (>42); POTASSIUM SERUM 4.2 MEQ/L (3.5-5.1)
[2016-04-09] MEDS: TIOTROPIUM INHALER/CAPSULE (SPIRIVA) INH SCH (07:44)
[2016-04-09] MEDS: SYMBICORT 160/4.5MCG INHALER 6GM INH SCH (07:44)
[2016-04-09] MEDS: ATORVASTATIN 20 MG TAB PO SCH (09:00)
[2016-04-09] MEDS: MIRALAX *UNIT DOSE* 17GM PACKET PO SCH (09:00)
[2016-04-09] MEDS: HEPARIN SOD (PORCINE) 5000 UNITS/ML VIAL SQ SCH (09:16)
[2016-04-09] MEDS: DRONABINOL 2.5 MG CAP (MARINOL) PO SCH (09:16)
[2016-04-09] MEDS: **hydrALAZINE** 50 MG TAB PO SCH (09:17)
[2016-04-09] MEDS: CLOPIDOGREL 75 MG TAB PO SCH (09:17)
[2016-04-09] MEDS: LABETALOL 100 MG TAB PO SCH (09:18)
[2016-04-09] MEDS: VITAMIN D 1,000 INTERNATIONAL UNITS TABLET PO SCH (09:18)
[2016-04-09] MEDS: FERROUS SULFATE 325MG TAB PO SCH (09:18)
[2016-04-09] MEDS: MULTIVITAMINS/MINERALS THERAP 1 TAB PO SCH (09:18)
[2016-04-09] MEDS: ASPIRIN 81 MG ENTERIC TAB PO SCH (09:18)
[2016-04-09] MEDS: cloNIDine 0.1 MG TAB PO SCH (09:19)
[2016-04-09] MEDS: SENOKOT S TAB PO SCH (09:19)
[2016-04-09] MEDS: PANTOPRAZOLE 40MG TAB (PROTONIX) PO SCH (09:19)
[2016-04-09 09:20] VITALS: BP 140/63
[2016-04-09] MEDS: HumaLOG INSULIN (NovoLOG) PER UNIT SC SCH (09:20)
[2016-04-09] MEDS: amLODIPine 10 MG TAB PO SCH (09:20)
[2016-04-09] MEDS ORDERED: PEG1POW PO (09:26)
[2016-04-09] MEDS ORDERED: LABE10TAB PO (09:26)
[2016-04-09] MEDS ORDERED: ATOR1TAB21 PO (09:26)
[2016-04-09] MEDS ORDERED: FERR325T PO (09:26)
[2016-04-09] MEDS ORDERED: HYDR50TA PO (09:26)
[2016-04-09] MEDS ORDERED: HYDRO50TAB PO (09:26)
[2016-04-09] MEDS ORDERED: SYMB16INH INH (09:26)
[2016-04-09] MEDS ORDERED: MAPA325T2 PO (09:26)
[2016-04-09] MEDS ORDERED: VITMTA PO (09:26)
[2016-04-09] MEDS ORDERED: SENN1TAB2 PO (09:26)
[2016-04-09] MEDS ORDERED: ASPI81TAEC PO (09:26)
[2016-04-09] MEDS ORDERED: AMLO10TA2 PO (09:26)
[2016-04-09] MEDS ORDERED: CLOP75TA2 PO (09:26)
[2016-04-09] MEDS ORDERED: TIOT18INH INH (09:26)
[2016-04-09] MEDS ORDERED: ALB2.5NEB NEB (09:26)
[2016-04-09] MEDS ORDERED: DIPH25CA PO (09:26)
[2016-04-09] MEDS ORDERED: ISOS20TAB PO (09:26)
[2016-04-09] MEDS ORDERED: VITAD1000T PO (09:26)
[2016-04-09] MEDS ORDERED: PANT40TA2 PO (09:26)
[2016-04-09] MEDS ORDERED: TERA5CA PO (09:26)
[2016-04-09] MEDS ORDERED: CLONI1TA PO (09:26)
--- NOTE | 2016-04-09 11:13 | IPN ---
DATE: 04/09/2016 SUBJECTIVE: The patient was seen and examined at the bedside today in the morning. He tolerated the hemodialysis procedure well yesterday. The patient complains of blood at the urethral meatus and he has not been able to urinate for the last three days almost. REVIEW OF SYSTEMS: The patient denies any fevers, chills, rigors, headache, nausea, vomiting, chest pain. He reports some shortness of breath and he failing nasal cannula. He reports that his appetite is not that good, but he denies any nausea or vomiting, pain in abdomen, or constipation. He also reports inability to urinate for almost three days and slight amount of blood at the urethral meatus. The rest of the review of systems is negative. OBJECTIVE: Vital Signs: Temperature 97.2 degrees Fahrenheit, blood pressure 140/63, pulse 70, respiratory rate 16, saturating 95% on nasal cannula. Intake and output: Patient got hemodialysis yesterday. Ultra filtration was 2.5 liters. Weight on the bed scale is 106.5 kg. PHYSICAL EXAM: General. Patient is awake, alert and oriented times three, laying in bed. No apparent distress. Head and Neck Exam: Extraocular muscles intact. Pupils equally round and reactive to light. Mucous membranes are moist. Neck is supple. There is no jugular venous distention (JVD). Cardiovascular: S1, S2, regular rate. No murmur, rub or gallop. Respiratory: Decreased breath sounds at the bases, otherwise no active rales or rhonchi. Abdomen: Soft, obese, positive bowel sounds, nontender. Positive mild tenderness in the suprapubic region on deep palpation. One examination of the genitourinary system, the patient does have some dried blood at the urethral meatus. Extremities: There is no cyanosis, but he does have clubbing of the fingernails and there is very trace edema of the bilateral lower extremities. Central Nervous System: No focal neurological deficit. Power 5/5 in all extremities. Skin: No rashes or ulcers. AV Access: Patient has a right IJ tunneled hemodialysis catheter. LAB REVIEW: CBC showed a WBC of 10.5, hemoglobin 8.9, platelets 206. BMP showed sodium 137, potassium 4.2, chloride 99, bicarbonate 32, BUN 23, creatinine 2.6, calcium 9.1, magnesium 2. CURRENT MEDICATIONS: Patient's current medications are all reviewed by me and there is no change in the medications today as compared with yesterday. Bedside bladder scan: Patient got the bedside bladder scan today, done this morning. There was more than 400 mL of urine on the bladder scan. Straight catheterization was done and 375 mL of urine came out. ASSESSMENT: 75-year-old male with acute renal failure superimposed on chronic kidney disease. He has been started on hemodialysis during this admission. PLAN: 1. End stage renal disease. The patient effectively has progressed into end stage renal disease requiring hemodialysis. He is getting regular hemodialysis every Friday, Friday and Friday. He is being discharged today. He has a Friday, Friday and Friday spot at 3:15 p.m. outpatient at [facility]. The dialysis center was already informed that he is being discharged at this time. Further management of end stage renal disease as per outpatient. 2. Urinary retention. The patient got straight catheterization done today and 375 mL of urine came out. The patient will be given Flomax and at the skilled nursing he will get bladder scan done every morning and if the bladder scan shows more than 300 mL of urine he will get straight catheterization. 3. Congestive heart failure. The patient's volume status is significantly improving. He is getting ultra filtration of 2 to 2.5 liters with every hemodialysis. Continue the nasal cannula at this time. 4. Anemia and end stage renal disease. Patient's hemoglobin is still suboptimal. It is 8.9 right now. Continue current dose of IV Venofer and IV Aranesp with hemodialysis. The rest of the anemia management as per outpatient protocol. 5. Hypertension. Blood pressure is acceptable at this time. Continue current dose of antihypertensive medications. His medications might need to be titrated down once we do more ultra filtration with hemodialysis sessions. 6. Discharge planning. It is okay to discharge the patient to skilled nursing today from nephrology standpoint. He will be dialyzed as outpatient three times a week.
--- NOTE | 2016-04-09 21:06 | DSES ---
DATE OF ADMISSION: 03/10/2016 DATE OF DISCHARGE: 04/09/2016 DISCHARGE DIAGNOSES: 1. End-stage renal disease with new hemodialysis. 2. Acute on chronic kidney injury. 3. Anemia of chronic disease. 4. Chronic occupational lung disease. 5. Type 2 diabetes. 6. Hypertension. 7. Coronary artery disease. 8. Protein calorie malnutrition. 9. Diastolic congestive heart failure. 10. Benign prostatic hypertrophy. SECONDARY DIAGNOSIS: Troponinemia CONSULTATIONS: Dr. Subramanian of cardiology, Dr. Sanabria of nephrology, Dr. Canela of general surgery HOSPITAL COURSE: At the time of the patient's admission, there was concern for possible partial small-bowel obstruction. He was seen by consult by general surgery. Supportive care was provided. The patient did have an elevated troponin, and he did have an echocardiogram completed, which revealed borderline concentric left ventricular hypertrophy (LVH) with diastolic dysfunction. The patient was seen by cardiology. Patient did have some mild troponinemia during his stay. An echocardiogram revealed diastolic congestive heart failure (CHF). He would likely benefit from further outpatient ischemic workup. Will followup with cardiology. The patient's renal function declined during his stay. He progressed from chronic kidney disease to end-stage renal disease and was started on hemodialysis. His small-bowel obstruction did resolve. He was awaiting placement and arrangement for an outpatient hemodialysis seat for quite some time. At this time, today he is medically stable for discharge to [facility]. SUBJECTIVE: Today the patient denies any specific complaints. He reports he feels quite well. He is eager to get out of the hospital. OBJECTIVE: VITAL SIGNS: Temperature 97.2, pulse 74, respiratory rate 16, blood pressure (BP) 154/70, oxygen saturation 95% on 3 liters, which is his baseline. GENERAL: He is an obese man sitting in bed at a 30-degree angle watching television in no acute distress. HEENT: Cranial nerves II-XII are grossly intact. He has moist mucous membranes. No elevation in central venous pressure (CVP), an enlarged neck and a campbell, making estimation of his CVP very challenging. CARDIOVASCULAR: S1, S2, regular. RESPIRATORY: Fairly clear. He has a tunneled hemodialysis (HD) catheter on the right side of his chest. ABDOMEN: Benign and obese. EXTREMITIES: No clubbing, cyanosis, and edema. LABORATORY STUDIES: WBC 10.0, hemoglobin 8.9, stable, hematocrit 29.4, platelet count 286. Chemistry panel: Sodium 132, potassium 4.2, chloride 99, bicarbonate 32, BUN 23, creatinine 2.6. Microbiology: The patient did on March 12 have an Enterococcus faecalis positive urine culture. ASSESSMENT AND PLAN: This is a 75-year-old man with acute on chronic renal disease, resulting in him being started on hemodialysis. 1. End-stage renal disease. Nephrology's help has been greatly appreciated. He has been started on hemodialysis via tunneled catheter on Friday, Friday, Friday. He has a spot at an outpatient dialysis center at this time. He is being discharged to [facility]. He will followup with nephrology as per their usual followup during dialysis. 2. Urinary retention. Patient did receive a straight catheterization times one today with a return of 375 mL. The patient has been given Flomax at the assisted. They will check a bladder scan daily and straight catheterize if greater than 300. 3. Diastolic congestive heart failure. Volume status is quite improved. It is controlled via hemodialysis. His blood pressure is controlled with hydralazine, clonidine, Norvasc, labetalol, isosorbide mononitrate. 4. Troponinemia and coronary artery disease. The patient was seen by cardiology during his stay. He is on aspirin, statin, beta nel. He is not on an angiotensin-converting enzyme (ADDIE) inhibitor, but he is on hydralazine and nitrates. 5. Chronic occupational lung disease. The patient is at his baseline 3 liters oxygen. He is continued on Symbicort, albuterol, and Spiriva. 6. Type 2 diabetes. He is on sliding scale, and his fingersticks are controlled. 7. Protein calorie malnutrition and gastritis. A peripherally inserted central catheter (PICC) was discussed during this stay, but the patient would rather modify his diet prior to this decision. For the time being, he is on Marinol and proton pump inhibitor (PPI). He does not emergently require a percutaneous endoscopic gastrostomy (PEG) tube for supplemental nutrition at this point. 8. Anemia of chronic disease and likely end-stage renal disease. His hemoglobin is stable. He is on Aranesp and IV Venofer as per nephrology. He is also on ferrous sulfate. 9. Benign prostatic hypertrophy (BPH). The patient is on Hytrin. 10. Deep vein thrombosis (DVT) prophylaxis. The patient is on heparin. 11. Constipation. The patient is on an aggressive bowel regimen. DISPOSITION: The patient is being discharged to [facility]. He is to followup with his primary care physician (PCP) in 7 days, followup with cardiology within 2 weeks, followup with nephrology at regular hemodialysis. His activity is as tolerated. His diet is renal-consistent carbohydrate. He is to return to the emergency room (ER) if his symptoms worsen. MEDICATIONS AT THE TIME OF DISCHARGE: - Tylenol 650 mg every 4 hours as needed for pain or fever - albuterol sulfate nebulizers 2.5 mg every 2 hours as needed shortness of breath or wheezing - Norvasc 10 mg daily - aspirin 81 mg daily - atorvastatin 20 mg daily - Symbicort 160/4.5 two puffs inhaled twice a day - clonidine 0.1 mg three times a day - Plavix 75 mg daily - Benadryl 25 mg at bedtime as needed for insomnia - ferrous sulfate 325 mg twice a day - hydralazine 100 mg three times a day - hydroxyzine 50 mg at bedtime - isosorbide dinitrate 20 mg three times a day - labetalol 300 mg twice a day - multivitamin one tablet daily - Protonix 40 mg daily - polyethylene glycol one packet by mouth daily - senna plus 8.6/50 mg two tablets twice a day - terazosin 5 mg at bedtime - Spiriva inhaled once daily - vitamin D 1000 units daily - insulin Lantus 36 units at bedtime - simvastatin 20 mg at bedtime Greater than 45 minutes spent organizing disposition.
== END 2016-04-09 11:55 | DRG 682 ==
LOC: M ED 15:33 → M ED INP 19:49 → M ICU 22:20 → M MSPAV 03-12 15:00 → M ICU 03-20 11:56 → M MSPAV 03-21 23:11 → M MS5PR 03-22 12:44
PROVIDERS: ADMIT Hospitalist; ATTEND Hospitalist
PROC: 05HB33Z Insertion of Infusion Device into Right Basilic Vein, Percutaneous Approach (ICD-10-PCS; principal; 2016-03-15)
PROC: 30253N1 (ICD-10-PCS; 2016-03-26)
PROC: 05HM33Z Insertion of Infusion Device into Right Internal Jugular Vein, Percutaneous Approach (ICD-10-PCS; 2016-04-01)
PROC: 5A1D60Z (ICD-10-PCS; 2016-04-01)
DX: N17.9 Acute kidney failure, unspecified (principal); I50.33 Acute on chronic diastolic (congestive) heart failure; J96.21 Acute and chronic respiratory failure with hypoxia; J96.22 Acute and chronic respiratory failure with hypercapnia; I13.2 Hypertensive heart and chronic kidney disease with heart failure and with stage 5 chronic kidney disease, or end stage renal disease; K56.7 Ileus, unspecified; E87.1 Hypo-osmolality and hyponatremia; N39.0 Urinary tract infection, site not specified; I25.110 Atherosclerotic heart disease of native coronary artery with unstable angina pectoris; J98.11 Atelectasis; E46 Unspecified protein-calorie malnutrition; N18.6 End stage renal disease; J98.4 Other disorders of lung; M10.9 Gout, unspecified; I25.2 Old myocardial infarction; E11.649 Type 2 diabetes mellitus with hypoglycemia without coma; N40.1 Benign prostatic hyperplasia with lower urinary tract symptoms; K29.70 Gastritis, unspecified, without bleeding; E78.5 Hyperlipidemia, unspecified; G47.33 Obstructive sleep apnea (adult) (pediatric); B34.9 Viral infection, unspecified; D63.1 Anemia in chronic kidney disease; E66.9 Obesity, unspecified; K59.00 Constipation, unspecified; R26.9 Unspecified abnormalities of gait and mobility; E87.5 Hyperkalemia; E83.39 Other disorders of phosphorus metabolism; B95.2 Enterococcus as the cause of diseases classified elsewhere; Z68.33 Body mass index [BMI] 33.0-33.9, adult; J68.4 Chronic respiratory conditions due to chemicals, gases, fumes and vapors; R33.9 Retention of urine, unspecified; J44.9 Chronic obstructive pulmonary disease, unspecified; F45.8 Other somatoform disorders; Z99.81 Dependence on supplemental oxygen; Z79.82 Long term (current) use of aspirin; Z79.4 Long term (current) use of insulin; Z86.711 Personal history of pulmonary embolism; Z79.84 Long term (current) use of oral hypoglycemic drugs; Z90.49 Acquired absence of other specified parts of digestive tract; Z96.653 Presence of artificial knee joint, bilateral; Z87.891 Personal history of nicotine dependence; Z79.899 Other long term (current) drug therapy; Z99.2 Dependence on renal dialysis

== ENCOUNTER 2016-04-20 09:24 | Inpatient (IN) | payer MEDICARE, MEDICAID ==
[~2016-04-20] VITALS: Ht 185.4 cm; Wt 99.9 kg
[2016-04-20] VITALS (8 sets, daily range): BP systolic 154–220; BP diastolic 78–110; O2SAT 63–98
[~2016-04-20 09:24] MED LIST changes: +ACET650T2 PO; +ALB2.5NEB NEB; +AMLO10TA2 PO; +ASPI81TAEC PO; +ATOR1TAB21 PO; +CLONI1TA PO; +CLOP75TA2 PO; +COLC1TAB13 PO; +DIPH25CA PO; +FERR325T PO; +FURO40TA2 PO; +HYDR12CA PO; +HYDR50CA2 PO; +HYDR50TA PO; +HYDRO50TAB PO; +ISOS20TAB PO; +LABE10TAB PO; +LANTINJ4 SC; +MAPA325T2 PO; +NOVOINJ3 SC; +PANT40TA2 PO; +PEG1POW PO; +SENN1TAB2 PO; +SIMV20TA2 PO; +TIOT18INH INH; +VITA500T88 PO; +VITAD1000T PO
[2016-04-20 10:07] LABS: ABG BASE EXCESS 4.9 (-2.0-2.0); ABG DEVICE NASAL CANN; ABG HCO3 29.5 MEQ/L (22.0-26.0); ABG PARTIAL PRESSURE CO2 44.4 mmHg (35.0-45.0); ABG PARTIAL PRESSURE O2 69.2 mmHg (75.0-100.0); ABG STANDARD HCO3 28.8 MEQ/L (22.0-26.0); ABG TOTAL CO2 30.9 MEQ/L (23.0-31.0); ABG pH (ARTERIAL) 7.441 UNITS (7.350-7.450)
--- NOTE | 2016-04-20 10:10 | REP ---
Clinical: Chest pain . Comparison: 03/30/2016 . Findings: The mediastinum and cardiac silhouette are stable and within normal limits for portable technique. Double-lumen central venous catheter. The lung ramirez demonstrate chronic changes without obvious acute consolidation, effusion, or pneumothorax. Skeletal structures are intact. Impression: Chronic changes. No obvious focal consolidation effusion, or pneumothorax. Signed by Johnny Berrios MD 04/20/2016 10:01 A
[2016-04-20 10:22] LABS: BASO % 0.5 % (0.0-1.0); EOS # 0.5 K/mm3 (0.0-0.50); EOS % 5.1 % (0.0-3.0); LARGE UNSTAINED CELL # 0.1 K/mm3 (0.0-0.4); LARGE UNSTAINED CELL % 1.4 % (0.0-4.0); LYMPH # 0.8 K/mm3 (1.5-4.5); LYMPH % 6.9 % (24.0-44.0); MEAN CORPUSCULAR HEMOGLOBIN 27.3 pg (27.0-33.0); MONO # 0.5 K/mm3 (0.0-0.8); MONO % 5.4 % (0.0-5.0); NEUTROPHILS % 80.8 % (36.0-66.0); PLATELET COUNT, AUTOMATED 290 k/mm3 (150-450); RED CELL DISTRIBUTION WIDTH 16.1 % (11.5-14.5); WHITE BLOOD COUNT 9.9 K/mm3 (4.0-10.0)
[2016-04-20 10:53] LABS: CALCIUM LEVEL 9.1 MG/DL (8.8-10.2); CREATININE FOR GFR 1.87 MG/DL (0.70-1.30); GLOMERULAR FILTRATION RATE 37.5 (>42); POTASSIUM SERUM 3.9 MEQ/L (3.5-5.1)
[2016-04-20] MEDS ORDERED: LORazepam 2 MG/ML VIAL (J2060) As Ordered ONE (14:12)
[2016-04-20] MEDS ORDERED: GLUCAGON FOR INJ 1 MG VIAL (J1610) SC PRN (14:45)
[2016-04-20] MEDS ORDERED: ACETAMINOPHEN TAB 650MG DOSE (2X325MG) PO PRN (14:45)
[2016-04-20] MEDS ORDERED: GLUCOSE 4 GM CHEW TABLET PO PRN (14:45)
[2016-04-20] MEDS ORDERED: DEXTROSE 50% 50 ML SYRINGE IV PRN (14:45)
[2016-04-20] MEDS ORDERED: ACET65SU PR (14:49)
[2016-04-20] MEDS ORDERED: INSUHUMDS SC (14:49)
[2016-04-20] MEDS ORDERED: SENN8.6T54 PO (14:49)
[2016-04-20] MEDS ORDERED: ENEMENE6 PR (14:49)
[2016-04-20] MEDS ORDERED: ALBU83IN INH ×2 (14:49)
[2016-04-20] MEDS ORDERED: ENSULIQ64 PO (14:49)
[2016-04-20] MEDS ORDERED: LEXA1TAB PO (14:49)
[2016-04-20] MEDS ORDERED: GUAISYP5 PO (14:49)
[2016-04-20] MEDS ORDERED: LORA-376 PO (14:49)
[2016-04-20] MEDS ORDERED: DIPH25CA PO (14:52)
[2016-04-20] MEDS ORDERED: PLAV75TA38 PO (14:52)
[2016-04-20] MEDS ORDERED: BISA10SU4 PR (14:52)
[2016-04-20] MEDS ORDERED: SPIR1CAP INH (14:52)
[2016-04-20] MEDS ORDERED: TYLE325T5 PO (14:52)
[2016-04-20] MEDS ORDERED: ISOS20TAB PO (14:52)
[2016-04-20] MEDS ORDERED: AZITHROMYCIN INJ 500 MG, VIAL MATE ADAPTER 1 EACH in D5W 250 ML IV SCH (15:00)
[2016-04-20] MEDS ORDERED: HEPARIN 1,000 UNITS/ML 10ML VIAL (FOR RADIOLOGY& DIALYSIS ONLY) IV ONE (15:30)
[2016-04-20] MEDS ORDERED: FLEET ENEMA PR PRN (17:15)
[2016-04-20] MEDS ORDERED: diphenhydrAMINE 25 MG CAP PO PRN (17:15)
[2016-04-20] MEDS ORDERED: BISACODYL 10 MG SUPP PR PRN (17:15)
[2016-04-20] MEDS ORDERED: ALBUTEROL SULFATE 2.5 MG/0.5 ML INH NEB SOLN As Ordered ONE ×2 (17:29→20:39)
[2016-04-20] MEDS: HumaLOG INSULIN (NovoLOG) PER UNIT SC SCH ×2 (17:30→21:00)
[2016-04-20] MEDS: ALBUTEROL SULFATE 2.5 MG/0.5 ML INH NEB SOLN NEB SCH ×2 (17:35→23:33)
--- NOTE | 2016-04-20 18:18 | HPE ---
DATE OF ADMISSION: 04/20/2016 PRIMARY CARE PROVIDER: The patient was recently admitted to [facility]. HISTORY OF PRESENT ILLNESS: The patient is a 75-year-old male with a past medical history significant for end-stage renal disease on hemodialysis, chronic obstructive pulmonary disease (COPD) with three liters nasal cannula at baseline, hypertension, gout, myocardial infarction (RI), diastolic congestive heart failure, type 2 diabetes, benign prostatic hypertrophy (BPH), history of gastritis, hyperlipidemia, history of pulmonary embolism (PE), history of gastrointestinal (GI) bleed, sleep apnea not on continuous positive airway pressure (CPAP). He presented to [facility] on 04/20/2016, for acute shortness of breath. Yesterday during sleep, the patient had acute onset of shortness of breath that woke him out of sleep. He had one session of nebulizer and it helped with the breathing, and he went back to sleep. This morning, he is having another acute onset of shortness of breath and his three liters nasal cannula has not been very helpful to manage his symptoms, and repeated nebulizer is not as effective as before, and the patient was brought to [facility] from the [facility]. Denies any fever or chills. Denies any recent sick contact. Denies any chest pain. The patient feels his chest is congested but he cannot really bring up any sputum. The patient did have a recent hospitalization from 03/10/2016, to 04/09/2016. ALLERGIES: No known drug allergies. PAST MEDICAL HISTORY: 1. End-stage renal disease on hemodialysis on Friday, Friday, Friday scheduled. 2. Chronic obstructive pulmonary disease (COPD) with three liters nasal cannula. 3. Hypertension. 4. Gout. 5. History of myocardial infarction (RI). 6. Diastolic congestive heart failure. 7. Type 2 diabetes. 8. Benign prostatic hypertrophy. 9. Gastritis. 10. Hyperlipidemia. 11. History of pulmonary embolism (PE). 12. Obstructive sleep apnea (ANKITA) not on continuous positive airway pressure (CPAP). PAST SURGICAL HISTORY: 1. Appendectomy with partial colectomy. 2. Cholecystectomy. 3. Bilateral knee replacement. SOCIAL HISTORY: The patient quit smoking around 40 years ago. Denies alcohol use. Denies recreational drug use. REVIEW OF SYSTEMS: GENERAL: No fever, no chills. HEENT: No vision changes or auditory changes. CARDIOVASCULAR: Denies chest pain or palpitations. RESPIRATORY: Positive acute shortness of breath, cough without any sputum. History of COPD. GASTROINTESTINAL: No nausea, no vomiting, no diarrhea. MUSCULOSKELETAL: Chronic back pain. No joint pain or muscle pain. NEUROLOGIC: No numbness, no tingling. OBJECTIVE: VITAL SIGNS: Blood pressure is 171/77, pulse is 76, respiratory rate 18, temperature 97.3, pulse oximetry 94% with three liters nasal cannula. Body weight is 105.6 kg. Body height is 185.4 cm. GENERAL: Mild to moderate distress secondary to difficulty breathing. Alert and oriented times three. HEENT: Normocephalic, atraumatic. Extraocular motor grossly intact. CARDIOVASCULAR: Positive S1, S2. Regular rate. LUNGS: Coarse lung sounds throughout. Positive crackles. Significant expiratory wheezes. ABDOMEN: Obese, soft, nontender, nondistended. Bowel sounds present. No rebound, no guarding. MUSCULOSKELETAL: Dialysis catheter in the right chest. EXTREMITIES: No lower extremity edema. No sign of cyanosis. NEUROLOGIC: Sensation to fine touch grossly intact. Muscle strength 5/5. LABORATORY DATA: WBC 9.9, hemoglobin 9, hematocrit 29, platelet count 290. Sodium 142, potassium 3.9, chloride 103, carbon dioxide 31, BUN 13, creatinine 1.87, GFR is 37.5, fasting glucose 109, calcium is 9.1. Total CK is 118. Troponin I is 0.05. BNP is 350. ABG showed pH of 7.44, pCO2 is 44.4, pO2 is 69.2, HCO3 is 29.5. MICROBIOLOGY: Blood cultures pending. IMAGING: Chest x-ray showed chronic changes. No obvious focal consolidation, effusion or pneumothorax. ASSESSMENT AND PLAN: 1. Acute respiratory distress. The patient will be admitted to progressive care unit (PCU) under inpatient status. At baseline the patient uses nebulizer every eight hours. We will provide additional as-needed nebulizer treatments. The patient had hemodialysis yesterday; however, the patient is being seen by the manager motor. The patient will be brought to inpatient dialysis today again for more fluid removal. Continue to monitor the patient. At the baseline, the patient requires three liters nasal cannula. 2. History of diastolic heart failure. The patient will have dialysis today for fluid removal. 3. Insulin-dependent diabetes, on sliding scale, consistent carbohydrate diet. 4. Gastroesophageal reflux disease. 5. Gout. 6. Hyperlipidemia. 7. Hypertension. 8. End-stage renal disease on hemodialysis on Friday, Friday, Friday. 9. History of myocardial infarction. 10. History of benign prostatic hypertrophy. 11. History of pulmonary embolism. 12. Obstructive sleep apnea not on continuous positive airway pressure (CPAP). 13. Deep venous thrombosis (DVT) prophylaxis. On heparin.
[2016-04-20] MEDS: ALBUTEROL SULFATE 2.5 MG/0.5 ML INH NEB SOLN NEB PRN (20:44)
[2016-04-20] MEDS: SYMBICORT 160/4.5MCG INHALER 6GM INH SCH (20:45)
[2016-04-20] MEDS: LEVEMIR (INSULIN DETEMIR) 1 UNITS/0.01ML SC SCH (21:00)
[2016-04-20 22:10] LABS: ABG BASE EXCESS 0.3 (-2.0-2.0); ABG HCO3 27.5 MEQ/L (22.0-26.0); ABG PARTIAL PRESSURE CO2 56.1 mmHg (35.0-45.0); ABG PARTIAL PRESSURE O2 95.6 mmHg (75.0-100.0); ABG STANDARD HCO3 24.8 MEQ/L (22.0-26.0); ABG TOTAL CO2 29.2 MEQ/L (23.0-31.0); ABG pH (ARTERIAL) 7.308 UNITS (7.350-7.450)
[2016-04-20] MEDS ORDERED: FUROSEMIDE 40 MG/4 ML VIAL (J1940) IV SCH (22:17)
[2016-04-20] MEDS ORDERED: FUROSEMIDE 40 MG/4 ML VIAL (J1940) As Ordered ONE (22:25)
[2016-04-20 22:39] LABS: PHOSPHORUS LEVEL 3.2 MG/DL (2.5-4.9)
--- NOTE | 2016-04-20 22:53 | EDDOCDS ---
Physician Documentation [facility] Name: Davin Snyder Age: 75 yrs Sex: Male : 1940 Arrival Date: 04/20/2016 Time: 09:24 Bed Admit Hold Private MD: Disposition: 04/20/16 14:20 Hospitalization ordered by Ruthie Coleman for Inpatient Admission. Preliminary diagnosis is Shortness of breath. - Bed requested for M ICU. - Status is Inpatient Admission. mar - Condition is Stable. - Problem is new. - Symptoms have improved. Historical: - Allergies: no known allergies; - Home Meds: 1. Oxygen 3LNC Continuous (Last dose: 04/20/2016 09:38) 2. clonidine HCl 0.1 mg Oral tab 1 tab 2 times per day (Last dose: 04/19/2016) 3. albuterol sulfate 2.5 mg /3 mL (0.083 %) Inhl nebu 3 mL 3 times per day (Last dose: 04/19/2016 05:00) 4. ferrous sulfate 325 mg (65 mg iron) Oral tab twice a day (Last dose: 04/20/2016 05:00) 5. acetaminophen-codeine 300-60 mg Oral tab 1 tab as needed (Last dose: 04/20/2016 05:00) 6. aspirin 81 mg Oral TbEC 1 tab once daily (Last dose: 04/20/2016 05:00) 7. colchicine 0.6 mg Oral tab as needed (Last dose: 04/20/2016 05:00) 8. Complete 50+ oral 1 tab daily (Last dose: 04/20/2016 05:00) 9. furosemide 40 mg Oral tab 1 tab Mon, Wed, Fri (Last dose: 04/19/2016 05:00) 10. glipizide 10 mg Oral tab three times a day (Last dose: 04/20/2016 05:00) 11. hydralazine 25 mg Oral tab 1 tab 2 times per day (Last dose: 04/19/2016 05:00) 12. hydrochlorothiazide 12.5 mg Oral cap 1 cap once daily (Last dose: 04/19/2016 05:00) 13. hydroxyzine pamoate 50 mg Oral cap 1 cap nightly (Last dose: 04/20/2016 05:00) 14. labetalol 200 mg Oral tab 1 tab 2 times per day (Last dose: 04/20/2016 05:00) 15. Lantus 100 unit/mL Sub-Q soln 36 unit daily (Last dose: 04/19/2016 20:00) 16. losartan 50 mg oral tab 1 tab once daily (Last dose: 04/19/2016 05:00) 17. nifedipine 60 mg Oral tr24 2 tabs once daily (Last dose: 04/19/2016 05:00) 18. Novolog 100 unit/mL Sub-Q soln 12 unit three times a day (Last dose: 04/19/2016 05:00) 19. omeprazole 20 mg Oral cpDR 1 cap once daily (Last dose: 04/19/2016 05:00) 20. Proventil 90 mcg/actuation Inhl aero 2 puffs as needed (Last dose: 04/19/2016 05:00) 21. simvastatin 40 mg Oral tab 0.5 tab nightly (Last dose: 04/19/2016 20:00) 22. Spiriva with HandiHaler 18 mcg Inhl CpDv 1 cap once daily (Last dose: 04/19/2016 05:00) 23. Symbicort 160-4.5 mcg/actuation inhalation HFAA 2 puffs 2 times per day (Last dose: 04/19/2016 05:00) 24. terazosin 5 mg oral cap nightly (Last dose: 04/19/2016 20:00) 25. Tylenol Arthritis Pain 650 mg oral TbER 1 tabs twice a day (Last dose: 04/19/2016 05:00) 26. Vitamin C 500 mg Oral tab 500 mg daily (Last dose: 04/19/2016 05:00) 27. Vitamin D3 1,000 unit oral tab daily (Last dose: 04/19/2016 05:00) - PMHx: CHF; COPD; Diabetes - IDDM: controlled; GERD; Gout; High Cholesterol; Hypertension; Renal Failure with Dialysis; oxygen dependent; NV; BPH; PE; Sleep Apnea w/o CPAP; - PSHx: Colon Resection; Appendectomy; Cholecystectomy; bilateral knee replacements; - Family history: Not pertinent. - Social history: Smoking status: Patient states former smoker of tobacco. No barriers to communication noted, Speaks appropriately for age. - : The pt / caregiver states he / she is not on anticoagulants. Home medication list is obtained from the facility [facility], Home medication list is obtained from the facility [facility]. - Exposure Risk Screening:: None identified. None identified. Vital Signs: 04/20 09:52 BP 152 / 70; Pulse 82; Resp 24; Temp 97.1(O); Pulse Ox 95% on 3 lpm NC; Weight 105.2 kg dem1 / 231.93 lbs (M); Height 6 ft. 1 in. (185.42 cm); 10:14 BP 138 / 65 (auto/); js13 10:14 Pulse 78 MON; Resp 18; Pulse Ox 94% on 3 lpm NC; js13 10:29 BP 146 / 60 (auto/); js13 10:29 Pulse 76 MON; Resp 18; Pulse Ox 95% on 3 lpm NC; js13 10:44 BP 161 / 72 (auto/); js13 10:44 Pulse 74 MON; Resp 18; Pulse Ox 94% on 3 lpm NC; js13 10:59 BP 161 / 73 (auto/); js13 10:59 Pulse 74 MON; Resp 16; Pulse Ox 96% on 3 lpm NC; js13 11:14 BP 155 / 72 (auto/); js13 11:14 Pulse 74 MON; Resp 16; Pulse Ox 97% on 3 lpm NC; js13 11:29 BP 163 / 75 (auto/); js13 11:29 Pulse 72 MON; Resp 18; Pulse Ox 98% on 3 lpm NC; js13 11:44 BP 164 / 75 (auto/); js13 11:44 Pulse 74 MON; Resp 18; Pulse Ox 97% on 3 lpm NC; js13 11:59 BP 166 / 66 (auto/); js13 11:59 Pulse 74 MON; Resp 18; Pulse Ox 97% on 3 lpm NC; js13 12:14 BP 166 / 76 (auto/); js13 12:14 Pulse 76 MON; Resp 18; Pulse Ox 97% on 3 lpm NC; js13 12:29 BP 163 / 74 (auto/); js13 12:29 Pulse 76 MON; Resp 18; Pulse Ox 96% on 3 lpm NC; js13 12:44 BP 170 / 74 (auto/); js13 12:44 Pulse 74 MON; Resp 18; Pulse Ox 95% on 3 lpm NC; js13 12:59 BP 171 / 77 (auto/); js13 12:59 Pulse 76 MON; Resp 18; Temp 97.3(O); Pulse Ox 94% on 3 lpm NC; js13 13:14 BP 171 / 77 (auto/); bcj 13:14 Pulse 74 MON; Resp 18; Pulse Ox 94% on 3 lpm NC; bcj 13:29 BP 168 / 76 (auto/); bcj 13:29 Pulse 74 MON; Resp 18; Pulse Ox 94% on 3 lpm NC; bcj 13:44 BP 176 / 71 (auto/); bcj 13:44 Pulse 80 MON; Resp 18; Pulse Ox 94% on 3 lpm NC; bcj 13:59 BP 179 / 84 (auto/); bcj 13:59 Pulse 80 MON; Resp 18; Pulse Ox 94% on 3 lpm NC; bcj 14:14 BP 186 / 79 (auto/); bcj 14:14 Pulse 88 MON; Resp 18; Pulse Ox 93% on 3 lpm NC; bcj 14:29 BP 154 / 72 (auto/); bcj 14:29 Pulse 82 MON; Resp 18; Temp 97.2(O); Pulse Ox 94% 3 lpm ; bcj 09:52 Body Mass Index 30.60 (105.20 kg, 185.42 cm) dem1 MDM: 09:29 ECG WITH READING ER PHYS+CARDIAG ordered. EDMS 09:41 -Blood Culture (Adults Only), peripheral from different site, or from device/port/PICC fg etc. if present ordered. 09:41 Office Automation Technician/Pulse Ox/q 15 min VS ordered. fg 09:41 IV Saline Lock ordered. fg 09:41 Oxygen at 4L/Min NC or Home dosage ordered. fg 09:41 Rhythm Strip to chart ordered. fg 09:42 -Arterial Blood Gas Ordered. EDMS 09:42 B-Type Natiuretic Peptide Ordered. EDMS 09:42 Basic Metabolic Profile Ordered. EDMS 09:42 CBC with Diff Ordered. EDMS 09:42 Cardiac Injury Profile Ordered. EDMS 09:42 Troponin Ordered. EDMS 09:43 Chest, 1 View Ordered. EDMS 09:48 -Blood Culture (Adults Only), peripheral from different site, or from device/port/PICC ar3 etc. if present complete. 09:50 BLOOD CULTURES Ordered. EDMS 09:51 [facility] Payment Agreement was scanned into [employer] and attached to record. [email or web address] 09:51 Financial registration complete. [email or web address] 13:26 Cardiac Marker Panel Ordered. EDMS 13:26 Troponin Ordered. EDMS 14:06 Call Respiratory ordered. fg 14:06 LORazepam 0.5 mg IVP once ordered. fg 14:07 BIPAP INPATIENT+RESP-VENT ordered. EDMS 14:09 Call Respiratory complete. ar3 14:25 Misc. Nursing Order ordered. fg 14:39 Admission / Observation Status ordered. EDMS 14:39 CONSISTENT CARBOHYDRATES ordered. EDMS 15:15 SPUTUM CULTURE AND GRAM STAIN Ordered. EDMS 15:15 RESPIRATORY PANEL Ordered. EDMS 18:23 T-Sheet-- Draft Copy was scanned into [employer] and attached to record. klr 18:49 CARDIAC MARKER PANEL Ordered. EDMS 19:31 HEMOGLOBIN A1C Ordered. EDMS 19:31 COMPLETE BLOOD COUNT Ordered. EDMS 19:31 BASIC METABOLIC PROFILE Ordered. EDMS 21:50 ELECTROCARDIOGRAM ADULT ordered. EDMS 21:57 ARTERIAL BLOOD GAS Ordered. EDMS 22:00 BLOOD CULTURES Ordered. EDMS 22:02 PORTABLE CHEST X-RAY Ordered. EDMS 22:16 BIPAP INPATIENT ordered. EDMS 22:22 CPAP INPATIENT ordered. EDMS 22:28 MAGNESIUM LEVEL Ordered. EDMS 22:29 PHOSPHOROUS LEVEL Ordered. EDMS Administered Medications: 14:17 Drug: LORazepam 0.5 mg [lorazepam 2 mg/mL injection solution (0.25 mL)] Route: IVP; js13 Site: left antecubital; 14:33 Follow up: Response: Anxiety is improved js13 Signatures: Dispatcher [employer] EDMS Jazzmine Taylor RN RN jan Lopresti, Mary-Elizabeth, Coremaking Supervisor Unit ml3 Graeme Hillman RN RN ml6 Nayeli Quiñonez, MANAGEMENT INFORMATION SYSTEMS DIRECTOR MANAGEMENT INFORMATION SYSTEMS DIRECTOR ar3 Jennifer StephensonRN RN js13 Tawana Crews MD MD fg Sorenson, Kimberly, Reg Reg [email or web address] Beatriz Kingsley The chart was reviewed and I authenticate all verbal orders and agree with the evaluation and treatment provided.Corrections: (The following items were deleted from the chart) 22:28 22:26 MAGNESIUM LEVEL ordered. EDMS EDMS 22:28 22:26 PHOSPHOROUS LEVEL ordered. EDMS EDMS Attachments: 09:51 [facility] Payment Agreement [email or web address] 18:23 T-Sheet-- Draft Copy klr MTDD
--- NOTE | 2016-04-20 22:53 | EDDOCDS ---
Nurse's Notes [facility] Name: Davin Snyder Age: 75 yrs Sex: Male : 1940 Arrival Date: 04/20/2016 Time: 09:24 Bed Admit Hold Private MD: Diagnosis: Shortness of breath Presentation: 04/20 09:26 Presenting complaint: Patient states: difficulty breathing started today. gave neb with srm little effect. usually uses 3 LNC and sats were 90%. upped his oxygen to 3.5LNC and sats increased to 92%. Adult Sepsis Screening: The patient does not have new or worsening altered mentation. Patient's respiratory rate is less than 22. Systolic blood pressure is greater than 100. Patient has a qSOFA score of 0- Negative Sepsis Screen. Suicide/Homicide risk assessment- the patient denies having any suicidal and/or homicidal ideations and does not present with any other emotional, behavioral or mental health complaints. Status: Patient is not a public address servicer or dependent. Transition of care: patient was received from [facility]. 09:26 Acuity: MONA Level 3 srm 09:26 Method Of Arrival: Ambulance [facility] 09:29 Presenting complaint: EMS states: transferred for [facility] for increased SOB. Adult Sepsis ml6 Screening: The patient does not have new or worsening altered mentation. Patient has a respiratory rate of greater than or equal to 22 (1 point). Systolic blood pressure is greater than 100. Patient has a qSOFA score of 0- Negative Sepsis Screen. Suicide/Homicide risk assessment- the patient denies having any suicidal and/or homicidal ideations and does not present with any other emotional, behavioral or mental health complaints. Status: Patient is not a public address servicer or dependent. Transition of care: patient was not received from another setting of care. 09:29 Acuity: MONA Level 3 ml6 09:29 Method Of Arrival: Ambulance ml6 09:29 Suicide/Homicide risk assessment- the patient denies having any suicidal and/or js13 homicidal ideations and does not present with any other emotional, behavioral or mental health complaints. Status: Patient is not a public address servicer or dependent. Transition of care: patient was received from [facility]. Care prior to arrival: See EMS report. Medications administered prior to arrival:. 09:29 Method Of Arrival: Ambulance js13 Triage Assessment: 09:30 General: Appears in no apparent distress, Behavior is appropriate for age, cooperative. js13 Pain: Denies pain. Neurological: No deficits noted. Level of Consciousness is awake, alert. Cardiovascular: Rhythm is regular Chest pain is denied. Respiratory: Onset: The symptoms/episode began/occurred yesterday. Respiratory: Airway is patent Respiratory effort is even, unlabored, Respiratory pattern is regular, symmetrical, Breath sounds are coarse Breath sounds with rhonchi Breath sounds are diminished. Derm: Skin is pink, warm & dry. Historical: - Allergies: no known allergies; - Home Meds: 1. Oxygen 3LNC Continuous (Last dose: 04/20/2016 09:38) 2. clonidine HCl 0.1 mg Oral tab 1 tab 2 times per day (Last dose: 04/19/2016) 3. albuterol sulfate 2.5 mg /3 mL (0.083 %) Inhl nebu 3 mL 3 times per day (Last dose: 04/19/2016 05:00) 4. ferrous sulfate 325 mg (65 mg iron) Oral tab twice a day (Last dose: 04/20/2016 05:00) 5. acetaminophen-codeine 300-60 mg Oral tab 1 tab as needed (Last dose: 04/20/2016 05:00) 6. aspirin 81 mg Oral TbEC 1 tab once daily (Last dose: 04/20/2016 05:00) 7. colchicine 0.6 mg Oral tab as needed (Last dose: 04/20/2016 05:00) 8. Complete 50+ oral 1 tab daily (Last dose: 04/20/2016 05:00) 9. furosemide 40 mg Oral tab 1 tab Mon, Wed, Fri (Last dose: 04/19/2016 05:00) 10. glipizide 10 mg Oral tab three times a day (Last dose: 04/20/2016 05:00) 11. hydralazine 25 mg Oral tab 1 tab 2 times per day (Last dose: 04/19/2016 05:00) 12. hydrochlorothiazide 12.5 mg Oral cap 1 cap once daily (Last dose: 04/19/2016 05:00) 13. hydroxyzine pamoate 50 mg Oral cap 1 cap nightly (Last dose: 04/20/2016 05:00) 14. labetalol 200 mg Oral tab 1 tab 2 times per day (Last dose: 04/20/2016 05:00) 15. Lantus 100 unit/mL Sub-Q soln 36 unit daily (Last dose: 04/19/2016 20:00) 16. losartan 50 mg oral tab 1 tab once daily (Last dose: 04/19/2016 05:00) 17. nifedipine 60 mg Oral tr24 2 tabs once daily (Last dose: 04/19/2016 05:00) 18. Novolog 100 unit/mL Sub-Q soln 12 unit three times a day (Last dose: 04/19/2016 05:00) 19. omeprazole 20 mg Oral cpDR 1 cap once daily (Last dose: 04/19/2016 05:00) 20. Proventil 90 mcg/actuation Inhl aero 2 puffs as needed (Last dose: 04/19/2016 05:00) 21. simvastatin 40 mg Oral tab 0.5 tab nightly (Last dose: 04/19/2016 20:00) 22. Spiriva with HandiHaler 18 mcg Inhl CpDv 1 cap once daily (Last dose: 04/19/2016 05:00) 23. Symbicort 160-4.5 mcg/actuation inhalation HFAA 2 puffs 2 times per day (Last dose: 04/19/2016 05:00) 24. terazosin 5 mg oral cap nightly (Last dose: 04/19/2016 20:00) 25. Tylenol Arthritis Pain 650 mg oral TbER 1 tabs twice a day (Last dose: 04/19/2016 05:00) 26. Vitamin C 500 mg Oral tab 500 mg daily (Last dose: 04/19/2016 05:00) 27. Vitamin D3 1,000 unit oral tab daily (Last dose: 04/19/2016 05:00) - PMHx: CHF; COPD; Diabetes - IDDM: controlled; GERD; Gout; High Cholesterol; Hypertension; Renal Failure with Dialysis; oxygen dependent; PA; BPH; PE; Sleep Apnea w/o CPAP; - PSHx: Colon Resection; Appendectomy; Cholecystectomy; bilateral knee replacements; - Family history: Not pertinent. - Social history: Smoking status: Patient states former smoker of tobacco. No barriers to communication noted, Speaks appropriately for age. - : The pt / caregiver states he / she is not on anticoagulants. Home medication list is obtained from the facility MAR, Home medication list is obtained from the facility MAR. - Exposure Risk Screening:: None identified. None identified. Screenin:32 Screening information is obtained from residence staff. Fall risk: At risk due to age, js13 immobility. Assistance ADL's: Requires assistance with. Abuse/DV Screen: The patient / caregiver reports he/she is: not in a situation that causes fear, pain or injury. Nutritional screening: No deficits noted. Advance Directives: There is no active DNR order. home support is adequate. Assessment: 09:33 General: Appears in no apparent distress, Behavior is appropriate for age, cooperative. js13 Pain: Denies pain. Neurological: Level of Consciousness is awake, alert. Cardiovascular: Rhythm is regular Chest pain is denied. Respiratory: Airway is patent Respiratory effort is even, unlabored, Respiratory pattern is regular, symmetrical, Breath sounds are coarse Breath sounds with crackles Breath sounds with rhonchi Breath sounds are diminished. Derm: Skin is pink, warm & dry. 10:37 General: Appears in no apparent distress, comfortable, Behavior is appropriate for age, js13 cooperative. Pain: Denies pain. Neurological: Level of Consciousness is awake, alert. Cardiovascular: Rhythm is regular Chest pain is denied. Respiratory: Airway is patent Respiratory effort is even, unlabored, Respiratory pattern is regular, symmetrical, Breath sounds are coarse Breath sounds with rhonchi Breath sounds are diminished. Derm: Skin is pink, warm & dry. 11:27 Adult Sepsis Screening: The patient does not have new or worsening altered mentation. js13 Patient's respiratory rate is less than 22. Systolic blood pressure is greater than 100. Patient has a qSOFA score of 0- Negative Sepsis Screen. General: Appears in no apparent distress, comfortable, Behavior is appropriate for age, cooperative. Pain: Denies pain. Neurological: Level of Consciousness is awake, alert. Cardiovascular: Rhythm is regular Chest pain is denied. Respiratory: Airway is patent Respiratory effort is even, unlabored, Respiratory pattern is regular, symmetrical. Derm: Skin is pink, warm & dry. 12:10 General: Appears in no apparent distress, comfortable, Behavior is appropriate for age, js13 cooperative. Pain: Denies pain. Neurological: Level of Consciousness is awake, alert. Cardiovascular: Rhythm is regular Chest pain is denied. Respiratory: Airway is patent Respiratory effort is even, unlabored, Respiratory pattern is regular, symmetrical, Breath sounds with rhonchi Breath sounds are diminished. Derm: Skin is pink, warm & dry. 13:11 Adult Sepsis Screening: The patient does not have new or worsening altered mentation. js13 Patient's respiratory rate is less than 22. Systolic blood pressure is greater than 100. Patient has a qSOFA score of 0- Negative Sepsis Screen. General: Appears in no apparent distress, comfortable, to be sleeping. Respiratory: Airway is patent Respiratory effort is even, Respiratory pattern is regular, symmetrical. Derm: Skin is pink, warm & dry. 14:17 General: Appears uncomfortable, Behavior is cooperative. Pain: Denies pain. js13 Neurological: Level of Consciousness is awake, alert. Cardiovascular: Rhythm is regular Chest pain is denied. Respiratory: Airway is patent Respiratory effort is even, Respiratory pattern is regular, symmetrical, Reports air hunger since 20 min. Derm: Skin is pink, warm & dry. 14:57 General: Appears in no apparent distress, comfortable, Behavior is appropriate for age, bcj cooperative. General: Patient to dialysis.. Pain: Denies pain. Neurological: Level of Consciousness is awake, alert. Cardiovascular: Rhythm is regular Chest pain is denied. Respiratory: Airway is patent Respiratory effort is even, Respiratory pattern is regular. Derm: Skin is pink, warm & dry. 14:57 Adult Sepsis Screening: The patient does not have new or worsening altered mentation. bcj Patient's respiratory rate is less than 22. Systolic blood pressure is greater than 100. Patient has a qSOFA score of 0- Negative Sepsis Screen. Vital Signs: 09:52 BP 152 / 70; Pulse 82; Resp 24; Temp 97.1(O); Pulse Ox 95% on 3 lpm NC; Weight 105.2 kg dem1 (M); Height 6 ft. 1 in. (185.42 cm); 10:14 BP 138 / 65 (auto/); js13 10:14 Pulse 78 MON; Resp 18; Pulse Ox 94% on 3 lpm NC; js13 10:29 BP 146 / 60 (auto/); js13 10:29 Pulse 76 MON; Resp 18; Pulse Ox 95% on 3 lpm NC; js13 10:44 BP 161 / 72 (auto/); js13 10:44 Pulse 74 MON; Resp 18; Pulse Ox 94% on 3 lpm NC; js13 10:59 BP 161 / 73 (auto/); js13 10:59 Pulse 74 MON; Resp 16; Pulse Ox 96% on 3 lpm NC; js13 11:14 BP 155 / 72 (auto/); js13 11:14 Pulse 74 MON; Resp 16; Pulse Ox 97% on 3 lpm NC; js13 11:29 BP 163 / 75 (auto/); js13 11:29 Pulse 72 MON; Resp 18; Pulse Ox 98% on 3 lpm NC; js13 11:44 BP 164 / 75 (auto/); js13 11:44 Pulse 74 MON; Resp 18; Pulse Ox 97% on 3 lpm NC; js13 11:59 BP 166 / 66 (auto/); js13 11:59 Pulse 74 MON; Resp 18; Pulse Ox 97% on 3 lpm NC; js13 12:14 BP 166 / 76 (auto/); js13 12:14 Pulse 76 MON; Resp 18; Pulse Ox 97% on 3 lpm NC; js13 12:29 BP 163 / 74 (auto/); js13 12:29 Pulse 76 MON; Resp 18; Pulse Ox 96% on 3 lpm NC; js13 12:44 BP 170 / 74 (auto/); js13 12:44 Pulse 74 MON; Resp 18; Pulse Ox 95% on 3 lpm NC; js13 12:59 BP 171 / 77 (auto/); js13 12:59 Pulse 76 MON; Resp 18; Temp 97.3(O); Pulse Ox 94% on 3 lpm NC; js13 13:14 BP 171 / 77 (auto/); bcj 13:14 Pulse 74 MON; Resp 18; Pulse Ox 94% on 3 lpm NC; bcj 13:29 BP 168 / 76 (auto/); bcj 13:29 Pulse 74 MON; Resp 18; Pulse Ox 94% on 3 lpm NC; bcj 13:44 BP 176 / 71 (auto/); bcj 13:44 Pulse 80 MON; Resp 18; Pulse Ox 94% on 3 lpm NC; bcj 13:59 BP 179 / 84 (auto/); bcj 13:59 Pulse 80 MON; Resp 18; Pulse Ox 94% on 3 lpm NC; bcj 14:14 BP 186 / 79 (auto/); bcj 14:14 Pulse 88 MON; Resp 18; Pulse Ox 93% on 3 lpm NC; bcj 14:29 BP 154 / 72 (auto/); bcj 14:29 Pulse 82 MON; Resp 18; Temp 97.2(O); Pulse Ox 94% 3 lpm ; bcj 09:52 Body Mass Index 30.60 (105.20 kg, 185.42 cm) dem1 Vitals: 09:30 Log In Time N/A - ambulance arrival. js13 ED Course: 09:25 Patient visited by Nayeli Quiñonez PCA. ar3 09:25 Jennifer Stephenson,RN is Primary Nurse. ar3 09:25 Patient moved to Waiting ar3 09:25 Patient moved to 14 ar3 09:26 Tawana Crews MD is Attending Physician. fg 09:26 Patient visited by Tawana Crews MD. fg 09:30 Triage Initiated srm 09:32 The patient / caregiver is instructed regarding the plan of care and ED course. Cardiac js13 monitor on. Pulse ox on. NIBP on. 09:33 Patient visited by Jennifer Stephenson RN. js13 09:40 Pt greeted and oriented to ED. Patient advised of names of staff involved in care, [facility] location of call [place], wait times and NPO status. Patient has correct armband on for positive identification. Placed in gown. Bed in low position. Call light in reach. Side rails up X2. 09:40 EKG done. (by ED staff). Reviewed by Tawana Crews MD. dem1 09:49 Patient visited by Israel Gay. dem1 09:51 [facility] Payment Agreement was scanned into Tasqe and attached to record. ks16 09:53 Patient visited by Israel Gay. dem1 10:05 -Arterial Blood Gas Sent. cs15 10:11 BLOOD CULTURES Sent. js13 10:11 B-Type Natiuretic Peptide Sent. js13 10:11 Basic Metabolic Profile Sent. js13 10:11 CBC with Diff Sent. js13 10:11 Cardiac Injury Profile Sent. js13 10:11 Troponin Sent. js13 10:14 Chest, 1 View Returned. EDMS 10:15 Inserted peripheral IV: 18gauge IV in left forearm and blood collected. Patient ml6 tolerated the procedure well. Labs drawn. (by ED staff). Sent per order to lab. 10:38 Patient visited by Jennifer Stephenson RN. js13 11:29 Patient visited by Jennifer Stephenson RN. js13 12:11 Patient visited by Jennifer Stephenson RN. js13 12:20 Primary Nurse role handed off by Jennifer Stephenson,CECILIO ml6 12:28 Jennifer Stephenson RN is Primary Nurse. js13 13:12 Patient visited by Jennifer Stephenson RN. js13 14:16 Ruthie Coleman circular distributor. ys2 14:18 Patient visited by Jennifer Stephenson RN. js13 14:19 Ruthie Coleman is Hospitalizing Provider. fg 14:34 Patient moved to Admit Hold js13 15:00 Patient visited by Aramis Christianson RN. bcj 17:31 Patient moved to 21 ml6 17:32 Patient moved to 14 js13 18:23 T-Sheet-- Draft Copy was scanned into Tasqe and attached to record. klr 18:41 Patient moved to 19 kpj 20:26 Patient moved to Admit Hold ml3 Administered Medications: 14:17 Drug: LORazepam 0.5 mg [lorazepam 2 mg/mL injection solution (0.25 mL)] Route: IVP; js13 Site: left antecubital; 14:33 Follow up: Response: Anxiety is improved js13 RT: 10:05 ABG's drawn from right radial artery allens test done and positive pressure held for 5 cs15 minutes no bleeding noted pressure bandage applied specimen sent pt. tolerated well. O2 via nasal cannula \T\ 3L/min. Respiratory: Respiratory effort is unlabored, Respiratory pattern is tachypnea. Order Results: Lab Order: -Arterial Blood Gas; SPEC'M 04/20/16 10:03 Test: ABG pH (ARTERIAL); Value: 7.441; Range: 7.350-7.450; Units: UNITS; Status: F Test: ABG PARTIAL PRESSURE CO2; Value: 44.4; Range: 35.0-45.0; Units: mmHg; Status: F Test: ABG PARTIAL PRESSURE O2; Value: 69.2; Range: 75.0-100.0; Abnormal: Below low normal; Units: mmHg; Status: F Test: ABG TOTAL CO2; Value: 30.9; Range: 23.0-31.0; Units: MEQ/L; Status: F Test: ABG HCO3; Value: 29.5; Range: 22.0-26.0; Abnormal: Above high normal; Units: MEQ/L; Status: F Test: ABG BASE EXCESS; Value: 4.9; Range: -2.0-2.0; Abnormal: Above high normal; Status: F Test: ABG STANDARD HCO3; Value: 28.8; Range: 22.0-26.0; Abnormal: Above high normal; Units: MEQ/L; Status: F Test: ABG O2 SATURATION; Value: 95.2; Range: 95.0-99.0; Units: %; Status: F Test: ABG DEVICE; Value: NASAL EDUARDO; Status: F Lab Order: B-Type Natiuretic Peptide; [facility] 04/20/16 09:51 Test: BRAIN NATRIURETIC PEPTIDE; Value: 350; Range: <100; Abnormal: Above high normal; Units: PG/ML; Status: F Lab Order: Basic Metabolic Profile; [facility] 04/20/16 09:51 Test: GLUCOSE, FASTING; Value: 109; Range: 83-110; Units: MG/DL; Status: F Test: BLOOD UREA NITROGEN; Value: 13; Range: 7-18; Units: MG/DL; Status: F Test: CREATININE FOR GFR; Value: 1.87; Range: 0.70-1.30; Abnormal: Above high normal; Units: MG/DL; Status: F Test: GLOMERULAR FILTRATION RATE; Value: 37.5; Range: >42; Abnormal: Below low normal; Status: F Test: SODIUM LEVEL; Value: 142; Range: 136-145; Units: MEQ/L; Status: F Test: POTASSIUM SERUM; Value: 3.9; Range: 3.5-5.1; Units: MEQ/L; Status: F Test: CHLORIDE LEVEL; Value: 103; Range: 98-107; Units: MEQ/L; Status: F Test: CARBON DIOXIDE LEVEL; Value: 31; Range: 21-32; Units: MEQ/L; Status: F Test: ANION GAP; Value: 8; Range: 8-16; Units: MEQ/L; Status: F Test: CALCIUM LEVEL; Value: 9.1; Range: 8.8-10.2; Units: MG/DL; Status: F Test Note: ; Units are mL/min/1.73 m2 Chronic Kidney Disease Staging per NKF: Stage I & II GFR >=60 Normal to Mildly Decreased Stage III GFR 30-59 Moderately Decreased Stage IV GFR 15-29 Severely Decreased Stage V GFR <15 Very Little GFR Left ESRD GFR <15 on ORAL AND MAXILLOFACIAL SURGERY RESIDENT Lab Order: CBC with Diff; SPEC'M 04/20/16 09:51 Test: WHITE BLOOD COUNT; Value: 9.9; Range: 4.0-10.0; Units: K/mm3; Status: F Test: RED BLOOD COUNT; Value: 3.30; Range: 4.30-6.10; Abnormal: Below low normal; Units: M/mm3; Status: F Test: HEMOGLOBIN; Value: 9.0; Range: 14.0-18.0; Abnormal: Below low normal; Units: g/dl; Status: F Test: HEMATOCRIT; Value: 29.0; Range: 42.0-52.0; Abnormal: Below low normal; Units: %; Status: F Test: MEAN CORPUSCULAR VOLUME; Value: 88.0; Range: 80.0-96.0; Units: fl; Status: F Test: MEAN CORPUSCULAR HEMOGLOBIN; Value: 27.3; Range: 27.0-33.0; Units: pg; Status: F Test: MEAN CORPUSCULAR HGB CONC; Value: 31.0; Range: 32.0-36.5; Abnormal: Below low normal; Units: g/dl; Status: F Test: RED CELL DISTRIBUTION WIDTH; Value: 16.1; Range: 11.5-14.5; Abnormal: Above high normal; Units: %; Status: F Test: PLATELET COUNT, AUTOMATED; Value: 290; Range: 150-450; Units: k/mm3; Status: F Test: NEUTROPHILS %; Value: 80.8; Range: 36.0-66.0; Abnormal: Above high normal; Units: %; Status: F Test: LYMPH %; Value: 6.9; Range: 24.0-44.0; Abnormal: Below low normal; Units: %; Status: F Test: MONO %; Value: 5.4; Range: 0.0-5.0; Abnormal: Above high normal; Units: %; Status: F Test: EOS %; Value: 5.1; Range: 0.0-3.0; Abnormal: Above high normal; Units: %; Status: F Test: BASO %; Value: 0.5; Range: 0.0-1.0; Units: %; Status: F Test: LARGE UNSTAINED CELL %; Value: 1.4; Range: 0.0-4.0; Units: %; Status: F Test: NEUTROPHILS #; Value: 8.0; Range: 1.8-7.7; Abnormal: Above high normal; Units: K/mm3; Status: F Test: LYMPH #; Value: 0.8; Range: 1.5-4.5; Abnormal: Below low normal; Units: K/mm3; Status: F Test: MONO #; Value: 0.5; Range: 0.0-0.8; Units: K/mm3; Status: F Test: EOS #; Value: 0.5; Range: 0.0-0.50; Units: K/mm3; Status: F Test: BASO #; Value: 0.0; Range: 0.0-0.2; Units: K/mm3; Status: F Test: LARGE UNSTAINED CELL #; Value: 0.1; Range: 0.0-0.4; Units: K/mm3; Status: F Lab Order: Cardiac Injury Profile; [facility]' 04/20/16 09:51 Test: CPK CREATINE PHOSPHOKINASE; Value: 118; Range: 39-308; Units: U/L; Status: F Test: CK-MB VALUE MASS; Value: 9.5; Range: 0.0-3.6; Abnormal: Above high normal; Units: NG/ML; Status: F Test: MB/CK RELATIVE INDEX; Value: 8.05; Range: < OR =4; Abnormal: Above high normal; Status: F Test Note: ; DIAGNOSIS CRITERIA MMB ng/ml Relative Index (RI) NON-AMI < or = 5 N/A [place] > 5 < or = 4 AMI > 5 > 4 Lab Order: Troponin; SPEC'M 04/20/16 09:51 Test: TROPONIN I; Value: 0.05; Range: < 0.10; Units: NG/ML; Status: F Test Note: ; Troponin I Reference Interval for Siemens [place] LOCI: 99th Percentile= 0.00-0.045 ng/ml Risk Stratification: <= 0.10 ng/ml Decreased Risk for Adverse Clinical Events. 0.10-1.50 ng/ml Increased Risk for Adverse Clinical Events. Evaluation of additional criterion and/or repeat testing in 2-6 hours is suggested to rule out myocardial damage. >= 1.50 ng/ml Indicative of Myocardial Injury. Lab Order: Cardiac Marker Panel; [facility] 04/20/16 14:04 Test: CPK CREATINE PHOSPHOKINASE; Value: 106; Range: 39-308; Units: U/L; Status: F Test: CK-MB VALUE MASS; Value: 8.6; Range: 0.0-3.6; Abnormal: Above high normal; Units: NG/ML; Status: F Test: MB/CK RELATIVE INDEX; Value: 8.11; Range: < OR =4; Abnormal: Above high normal; Status: F Test: TROPONIN I; Value: 0.09; Range: < 0.10; Abnormal: Delta; Units: NG/ML; Status: F Test Note: ; DIAGNOSIS CRITERIA MMB ng/ml Relative Index (RI) NON-AMI < or = 5 N/A [place] > 5 < or = 4 AMI > 5 > 4 Lab Order: CARDIAC MARKER PANEL; [facility] 04/20/16 20:00 Test: CPK CREATINE PHOSPHOKINASE; Value: 119; Range: 39-308; Units: U/L; Status: F Test: CK-MB VALUE MASS; Value: 9.9; Range: 0.0-3.6; Abnormal: Above high normal; Units: NG/ML; Status: F Test: MB/CK RELATIVE INDEX; Value: 8.31; Range: < OR =4; Abnormal: Above high normal; Status: F Test: TROPONIN I; Value: 0.07; Range: < 0.10; Abnormal: Delta; Units: NG/ML; Status: F Test Note: ; DIAGNOSIS CRITERIA MMB ng/ml Relative Index (RI) NON-AMI < or = 5 N/A [place] > 5 < or = 4 AMI > 5 > 4 Lab Order: ARTERIAL BLOOD GAS; [facility] 04/20/16 22:01 Test: ABG pH (ARTERIAL); Value: 7.308; Range: 7.350-7.450; Abnormal: Below low normal; Units: UNITS; Status: F Test: ABG PARTIAL PRESSURE CO2; Value: 56.1; Range: 35.0-45.0; Abnormal: Above high normal; Units: mmHg; Status: F Test: ABG PARTIAL PRESSURE O2; Value: 95.6; Range: 75.0-100.0; Units: mmHg; Status: F Test: ABG TOTAL CO2; Value: 29.2; Range: 23.0-31.0; Units: MEQ/L; Status: F Test: ABG HCO3; Value: 27.5; Range: 22.0-26.0; Abnormal: Above high normal; Units: MEQ/L; Status: F Test: ABG BASE EXCESS; Value: 0.3; Range: -2.0-2.0; Status: F Test: ABG STANDARD HCO3; Value: 24.8; Range: 22.0-26.0; Units: MEQ/L; Status: F Test: ABG O2 SATURATION; Value: 97.4; Range: 95.0-99.0; Units: %; Status: F Lab Order: MAGNESIUM LEVEL; SPEC'M 04/20/16 20:00 Test: MAGNESIUM LEVEL; Value: 2.0; Range: 1.8-2.4; Units: MG/DL; Status: F Lab Order: PHOSPHOROUS LEVEL; SPEC'M 04/20/16 20:00 Test: PHOSPHORUS LEVEL; Value: 3.2; Range: 2.5-4.9; Units: MG/DL; Status: F Radiology Order: Chest, 1 View Test: Chest, 1 View REASON FOR EXAMINATION: Chest Pain; Clinical: Chest pain .; ; Comparison: 03/30/2016 .; ; Findings:; The mediastinum and cardiac silhouette are stable and within normal limits for; portable technique. Double-lumen central venous catheter. The lung ramirez; demonstrate chronic changes without obvious acute consolidation, effusion, or; pneumothorax. Skeletal structures are intact.; ; Impression:; Chronic changes. No obvious focal consolidation effusion, or pneumothorax.; ; ; Signed by; Johnny Berrios MD 04/20/2016 10:01 A; Outcome: 14:20 Decision to Hospitalize by Provider. fg 22:48 Discharge Assessment: pt critical on departure of ED Dr Garret snider and in mar department. The following High Risk Discharge criteria are identified: None. Admitted to ICU accompanied by nurse, accompanied by tech, via stretcher, on monitor, with chart. critical. No special radiology studies were completed. Property :Personal belongings accompany Pt. 22:50 Condition: see [facility] for all other information. mar 22:52 Patient left the ED. mar Signatures: Dispatcher [employer] EDMS Leonela Mckeon, RN RN Aramis Sainz RN RN Charity Perez RN RN srm Newman, Jazzmine Carbone, RN CECILIO Valdes, Jazmynebeth, Leather Finisher Unit ml3 Graeme Hillman, RN RN ml6 Nayeli Quiñonez, ELECTRICITY TRADER ELECTRICITY TRADER ar3 Israel Gay dem1 Jennifer Stephenson,RN RN js13 Tawana Crews MD MD fg Shelton, Caleb,RT RT cs15 Jared, Hendricks ys2 Priya Nguyen, Reg Reg ks16 Teetee, Beatriz rao Corrections: (The following items were deleted from the chart) 09:53 09:47 47.45 kg Reported; ml6 dem1 MTDD
--- NOTE | 2016-04-20 23:20 | REPUSA ---
CLINICAL HISTORY: SOB. COMMENTS: Central venous catheter is noted in the right chest wall. The cardiac silhouette is enlarged. There is evidence for pulmonary venous congestion compatible with CHF. There is no definite radiographic evidence for a lung mass or consolidation. Bony structures appear normal. IMPRESSION: 1. Enlarged cardiac silhouette. 2. Pulmonary venous congestion compatible with CHF. Thank you for your kind referral of this patient.
[2016-04-20] MEDS: HEPARIN SOD (PORCINE) 5000 UNITS/ML VIAL SQ SCH (23:42)
[2016-04-20] MEDS: AZITHROMYCIN INJ 500 MG, VIAL MATE ADAPTER 1 EACH in D5W 250 ML IV SCH (23:42)
[2016-04-20] MEDS: **hydrALAZINE** 50 MG TAB PO SCH (23:44)
[2016-04-20] MEDS: TERAZOSIN 5 MG CAP PO SCH (23:45)
[2016-04-20] MEDS: LABETALOL 100 MG TAB PO SCH (23:45)
[2016-04-20] MEDS: cloNIDine 0.1 MG TAB PO SCH (23:46)
[2016-04-20] MEDS: CLOPIDOGREL 75 MG TAB PO SCH (23:46)
[2016-04-20] MEDS: SENOKOT S TAB PO SCH (23:46)
[2016-04-20] MEDS: FERROUS SULFATE 325MG TAB PO SCH (23:46)
[2016-04-20] MEDS: SIMVASTATIN 20 MG TAB PO SCH (23:46)
[2016-04-20] MEDS: predniSONE 20 MG TAB PO SCH (23:46)
--- NOTE | 2016-04-20 23:51 | IPNPDOC ---
Text Note Date of Service The patient was seen on 04/20/16. NOTE Subjective: I was called to the emergency department to evaluate the patient this evening due to increased work of breathing. I went down and examined the patient, when I saw him he said he was very short of breath, short of breath to the point where he was getting short of breath with conversation. He says that his shortness of breath started last night but was been getting worse over the last couple hours. He denied any fevers, chills, sweats, lower extremity swelling. Respiratory therapy did give him a breathing treatment. They said he was wheezy and coarse sounding before his breathing treatment. He was also dialyzed today. Objective: Vitals in emergency department: Temperature 101.3, pulse 1:30, respiratory rate 24-26, blood pressure 220/110, pulse ox 86% on 50% Ventimask Gen.: Patient awake, verbal and able to answer questions appropriately. He does appear to be in moderate distress Heart: Tachycardic with regular rhythm Lungs: Tachypnea, increased work of breathing, bilateral rhonchi and wheezing Assessment / Plan: Patient is a 75-year-old male with a medical history significant for end-stage renal disease on dialysis, COPD, hypertension, type 2 diabetes mellitus who was recently admitted for acute respiratory distress syndrome. Order was placed for ABG which showed: PH 7.308, PCO2 56.1, PO2 95.6, HCO3 27.5, oxygen saturation 97.4. Patient was placed on CPAP and made nothing by mouth with exception for medications. Patient had repeat chest x-ray which as interpreted by myself showed increased congestion without definitive infiltrate or effusion. Patient was given an additional 80 mg of IV Lasix. Repeat blood culture 1 was ordered. Patient had EKG done in emergency department which showed junctional tachycardia at rate of 130 bpm. Orders for magnesium and phosphorus levels were placed Patient was transferred to ICU for further evaluation and monitoring. In ICU patient had a Pratt placed. Vitals in the ICU on CPAP for fluid monitoring: Pulse 110, respiratory rate 40, blood pressure 154/78, pulse ox 95% on CPAP. I suspect patient's increased work of breathing, shortness of breath is secondary to congestive heart failure. We will continue to monitor patient closely. My preceptor for this patient encounter was physically present in the building during the encounter and was fully available. As needed, all aspects of the patient interview, examination, medical decision making process, and medical care plan development were reviewed and approved by the preceptor. Preceptor is aware and concurs with the plan as stated in the body of this note and will attest to such by his/her cosignature. Attending Note: I was present for discussion and assisted with the development of the treatment plan for the patient above. The Resident was given guidance and the patient will be followed appropriately by an attending physician during the remaining hospital stay. VS,Fishbone, I+O VS, Fishbone, I+O Laboratory Tests 04/20/16 09:51 Calcium Level 9.1, Total Creatine Kinase 118, Red Blood Count 3.30 L, Mean Corpuscular Volume 88.0, Mean Corpuscular Hemoglobin 27.3, Mean Corpuscular Hemoglobin Concent 31.0 L, Red Cell Distribution Width 16.1 H, Neutrophils (%) ( Auto) 80.8 H, Lymphocytes (%) (Auto) 6.9 L, Monocytes (%) (Auto) 5.4 H, Eosinophils (%) (Auto) 5.1 H, Basophils (%) (Auto) 0.5, Neutrophils # (Auto) 8.0 H, Lymphocytes # (Auto) 0.8 L, Monocytes # (Auto) 0.5, Eosinophils # (Auto) 0.5, Basophils # (Auto) 0.0 Vital Signs Date Time Temp Pulse Resp B/P Pulse Ox O2 Delivery O2 Flow Rate FiO2 04/20/16 23:45 109 04/20/16 23:44 199/95 04/20/16 23:09 91 BIPAP/CPAP 40 04/20/16 23:09 10 04/20/16 22:40 101.0 24 LEEANN TAVAREZ DO Apr 20, 2016 23:51 CORINA GOLDSTEIN DO Apr 29, 2016 14:35
[2016-04-21] VITALS (26 sets, daily range): BP systolic 112–205; BP diastolic 58–112; O2SAT 92–97
[2016-04-21 05:08] LABS: CALCIUM LEVEL 9.6 MG/DL (8.8-10.2); CREATININE FOR GFR 2.71 MG/DL (0.70-1.30); GLOMERULAR FILTRATION RATE 24.4 (>42); POTASSIUM SERUM 4.4 MEQ/L (3.5-5.1)
[2016-04-21 05:13] LABS: MEAN CORPUSCULAR HEMOGLOBIN 27.4 pg (27.0-33.0); MEAN CORPUSCULAR HGB CONC 30.8 g/dl (32.0-36.5); RED CELL DISTRIBUTION WIDTH 16.4 % (11.5-14.5); WHITE BLOOD COUNT 10.3 K/mm3 (4.0-10.0)
[2016-04-21] MEDS: HEPARIN SOD (PORCINE) 5000 UNITS/ML VIAL SQ SCH ×3 (06:50→21:36)
[2016-04-21] MEDS: ISOSORBIDE DIN. (ISORDIL) 20 MG TAB PO SCH ×3 (06:52→17:27)
[2016-04-21] MEDS: LORazepam 0.5 MG TAB PO PRN ×2 (06:58→13:56)
[2016-04-21] MEDS: SYMBICORT 160/4.5MCG INHALER 6GM INH SCH (07:14)
[2016-04-21] MEDS: HumaLOG INSULIN (NovoLOG) PER UNIT SC SCH ×4 (07:54→21:00)
[2016-04-21] MEDS: ALBUTEROL SULFATE 2.5 MG/0.5 ML INH NEB SOLN NEB SCH (08:00)
[2016-04-21] MEDS ORDERED: TIOTROPIUM INHALER/CAPSULE (SPIRIVA) INH SCH (08:00)
--- NOTE | 2016-04-21 08:26 | ECGEPIP ---
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
[2016-04-21] MEDS: MIRALAX *UNIT DOSE* 17GM PACKET PO SCH (08:37)
[2016-04-21] MEDS: MULTIVITAMINS/MINERALS THERAP 1 TAB PO SCH (08:38)
[2016-04-21] MEDS: VITAMIN D 1,000 INTERNATIONAL UNITS TABLET PO SCH (08:38)
[2016-04-21] MEDS: PANTOPRAZOLE 40MG TAB (PROTONIX) PO SCH (08:38)
[2016-04-21] MEDS: predniSONE 20 MG TAB PO SCH (08:38)
[2016-04-21] MEDS: FERROUS SULFATE 325MG TAB PO SCH (08:38)
[2016-04-21] MEDS: ASPIRIN 81 MG ENTERIC TAB PO SCH (08:38)
[2016-04-21] MEDS: SENOKOT S TAB PO SCH ×2 (08:39→21:35)
[2016-04-21] MEDS: ESCITALOPRAM OXALATE 10 MG TAB (LEXAPRO) PO SCH (08:39)
[2016-04-21] MEDS: **hydrALAZINE** 50 MG TAB PO SCH ×3 (08:39→21:00)
[2016-04-21] MEDS: LABETALOL 100 MG TAB PO SCH ×2 (08:40→21:00)
[2016-04-21] MEDS: cloNIDine 0.1 MG TAB PO SCH ×3 (08:40→21:38)
--- NOTE | 2016-04-21 09:43 | CR ---
DATE OF CONSULTATION: 04/20/2016 CONSULTATION REPORT FOR: Dr. Crews from emergency room. REASON FOR CONSULTATION: End-stage renal disease, patient presented with shortness of breath. CHIEF COMPLAINT: Patient was sent from [facility] because of progressive shortness of breath that started overnight. HISTORY OF PRESENT ILLNESS: Mr. Davin Snyder is a 75-year-old male with a past medical history of end-stage renal disease on hemodialysis every Friday, Friday and Friday, last hemodialysis session was yesterday. He has multiple other comorbidities. As reported by patient, patient got dialyzed yesterday and dialysis went well. However, almost at midnight last night, he woke up with sudden shortness of breath. He called his nurses. He was given nebulizations that helped him with the shortness of breath and he went back to sleep. However, he woke up again with another bout of acute shortness of breath. He got another course of nebulizations that did not help with the shortness of breath, so he was sent from [facility] to the emergency room for further management and emergency room (ER) physician called me for evaluation of the patient. When I saw the patient, he was still in moderate respiratory distress with active wheezing and hypertension. On my evaluation, the patient was found to be on a fluid overload and dialysis nurse was called to do emergency ultrafiltration of this patient. The patient denies any fevers, chills, or rigors. He did report some cough but he denied any phlegm with the cough. PAST MEDICAL HISTORY: He has a past medical history of: 1. End-stage renal disease on hemodialysis every Friday, Friday and Friday. 2. History of chronic obstructive pulmonary disease (COPD), currently on three liters nasal cannula. 3. Hypertension. 4. History of gout. 5. Prior history of myocardial infarction ([place]) in the past. 6. Diastolic congestive heart failure. 7. Diabetes mellitus type 2. 8. Benign prostatic hypertrophy. 9. Hyperlipidemia. 10. Gastritis. 11. History of pulmonary embolism in the past. 12. Obstructive sleep apnea, not on continuous positive airway pressure (CPAP). PAST SURGICAL HISTORY: 1. History of appendectomy with partial colectomy in the past, status post cholecystectomy. 2. Bilateral knee replacements. 3. Status post tunneled hemodialysis catheter placement. ALLERGIES: No known drug allergies. CURRENT INPATIENT MEDICATIONS: He has been started on: - azithromycin 500 mg IV every 24 hours - Tylenol as needed - nebulizations every two hours as needed for wheezing - [id number] Proventil every eight hours - aspirin 81 mg by mouth daily - Dulcolax as needed - Symbicort two puffs twice a day - clonidine 0.1 mg by mouth three times a day - Plavix 75 mg at bedtime - Senokot - Benadryl as needed - Lexapro 10 mg by mouth daily - iron tablets 325 mg by mouth twice a day - heparin subcutaneous - hydralazine 100 mg three times a day - isosorbide 20 mg by mouth three times a day - labetalol 300 mg by mouth twice a day - Protonix 40 mg by mouth daily - MiraLAX one packet daily - prednisone 20 mg by mouth twice a day - simvastatin 20 mg at bedtime - terazosin 5 mg at bedtime - vitamin D 1000 units by mouth daily FAMILY HISTORY: No significant family history of end-stage renal disease requiring hemodialysis. SOCIAL HISTORY: Patient is a former smoker. He denies any alcohol abuse or recreational drug use. He is currently at a jail. REVIEW OF SYSTEMS: CONSTITUTIONAL: The patient reports shortness of breath but he denies any fevers, chills, or rigors. EYES: He denies any blurry vision or double vision. EARS, NOSE AND THROAT: He denies any dysphagia, odynophagia, or ear discharge or pain. CARDIOVASCULAR: He denies any chest pain or palpitations. RESPIRATORY: He reports progressive shortness of breath and cough. He does report a history of chronic obstructive pulmonary disease (COPD). GASTROINTESTINAL: He denies any nausea, vomiting, pain abdomen, or constipation. MUSCULOSKELETAL: He reports chronic back pain but he denies any muscle aches or pains. CENTRAL NERVOUS SYSTEM: He denies history of seizures or strokes. PSYCHIATRIC: He denies any history of depression or anxiety. HEMATOLOGIC/ONCOLOGIC: He reports a history of anemia secondary to end-stage renal disease. ENDOCRINE: Patient has a history of type 2 diabetes. All other review of systems is negative. PHYSICAL EXAMINATION: GENERAL: The patient is awake, alert, and oriented times three, laying in bed in moderate respiratory distress. VITAL SIGNS: Temperature is 98 degrees Fahrenheit, blood pressure is 168/70, pulse is 81, respiratory rate of 20, saturating 94% on three liters via nasal cannula. HEAD AND NECK EXAMINATION: Extraocular muscles intact. Pupils are equal, round, and reactive to light. Mucous membranes are slightly dry. Neck is supple. I could not appreciate the jugular venous distention (JVD) because of the body habitus, obesity, a line in the right side of the neck. CARDIOVASCULAR: S1, S2, regular rate. No murmur, rub, or gallop. RESPIRATORY: Diffuse expiratory rhonchi heard all over the lungs with some crepitation on deep inspirations. ABDOMEN: Obese, soft, positive bowel sounds. Positive right lower quadrant surgical scar. There is no tenderness. EXTREMITIES: No clubbing or cyanosis. Pulses are 2+. He has trace edema of the bilateral lower extremities. CENTRAL NERVOUS SYSTEM: No focal neurological deficit. Power is 5/5 in all extremities. SKIN: No rashes at this time. PSYCHIATRIC: The patient is slightly anxious at this time because of shortness of breath. LABORATORY REVIEW: CBC showed a WBC of 9.9, hemoglobin is 9, platelets are 290. ABG showed a pH of 7.4, pCO2 of 44, pO2 is 69, bicarbonate is 29.5, oxygen saturation is 95%. BMP showed sodium 142, potassium 3.9, chloride 103, bicarbonate 31, BUN is 13, creatinine is 1.87, calcium is 9.5, BNP is 350. MICROBIOLOGY: Blood cultures are pending. IMAGING STUDIES: A chest x-ray done in the emergency room today showed no focal consolidation, effusion, or pneumothorax. ASSESSMENT: A 75-year-old male with past medical history of end-stage renal disease on hemodialysis who presented this time with acute respiratory distress. Nephrology service following the patient for management of end-stage renal disease and fluid overload. PLAN: 1. Acute respiratory distress with hypoxemia. Clinically, patient looks like he is fluid overloaded. I have called the dialysis nurse. We are going to dialyze the patient emergently and we will try to do an ultrafiltration of three liters as tolerated by his blood pressure. Continue the nebulizations and steroids as they have already been ordered by the primary team. 2. History of diastolic congestive heart failure. Continue carvedilol at this time. Hemodialysis and ultrafiltration as mentioned above. 3. Hypertension. The patient is on multiple antihypertensives. Hemodialysis and ultrafiltration will also help with hypertensive management. Blood pressure is acceptable at this time. Continue current dose of antihypertensives at this time. 4. Anemia and end-stage renal disease. The patient's hemoglobin is 9. I would start the patient on Aranesp with hemodialysis. 5. Diabetes mellitus, type 2. Insulin management is as per primary team. 6. History of gout secondary to end-stage renal disease. I will check the patient's uric acid level.
[2016-04-21] MEDS: ALBUTEROL SULFATE 2.5 MG/0.5 ML INH NEB SOLN NEB PRN ×2 (10:18→18:06)
[2016-04-21] MEDS ORDERED: NS 1,000 ML IV SCH (11:45)
[2016-04-21] MEDS: methylPREDNISolone INJ 125 MG/2 ML VIAL (J2930) IV SCH ×2 (12:30→23:55)
[2016-04-21] MEDS: IPRATROPIUM 0.5MG/ALBUTEROL 2.5MG INH SOL UD 3ML (DUONEB)(J7620) NEB SCH ×2 (13:14→20:34)
--- NOTE | 2016-04-21 13:43 | IPNPDOC ---
Subjective Date Seen The patient was seen on 04/21/16. Subjective Chief Complaint/HPI The patient is a 75-year-old male admitted with a reason for visit of Acute Respiratory Distress. Events since last encounter pt seen and examined, still complaining of shortness of breath but it has improved, no other events overnight, per nursing staff he was refusing his cpap Objective Physical Examination General Exam: Positive: No Acute Distress Eye Exam: Positive: Conjunctiva & lids normal, PERRLA Chest Exam: Positive: Rales, Rhonchi, Wheezing Abdomen Exam: Positive: Normal bowel sounds, Soft, Negative: Hepatospenomegaly, Tenderness Assessment /Plan Problems (1) Chronic respiratory failure with hypoxia Status: Chronic Problem Text: * multifactorial, pt was dialyzed yesterday * will continue cpap if able to tolerate * IV solumedrol * duonebs (2) End stage renal disease on dialysis Status: Acute Problem Text: * Dr robles is managing * dialyzed yesterday (3) CKD (chronic kidney disease), stage III Status: Chronic (4) COPD (chronic obstructive pulmonary disease) Status: Chronic Problem Text: * normally on 3L of oxygen (5) Gout Status: Chronic (6) Hypertension Status: Chronic (7) BPH (benign prostatic hyperplasia) Status: Acute (8) Diabetes Status: Chronic (9) ANKITA (obstructive sleep apnea) Status: Chronic Plan/VTE VTE Prophylaxis Ordered?: Yes Plan/Urinary Catheter Reason for insertion/continuin: Critical Pt monitoring VS, I&O, 24H, [facility] Vital Signs/I&O Vital Signs Date Time Temp Pulse Resp B/P Pulse Ox O2 Delivery O2 Flow Rate FiO2 04/21/16 09:00 97 24 133/70 98 Venturi Mask 15.0 04/21/16 08:00 98.9 04/21/16 06:00 40 I&O- Last 24 Hours up to 6 AM 04/21/16 06:00 Intake Total 315 ml Output Total 3745 ml Balance -3430 ml Laboratory Data 24H LABS Laboratory Tests 2 04/20/16 14:04: Creatine Kinase MB 8.6H, Creatine Kinase MB Relative Index 8.11H, Total Creatine Kinase 106, Troponin I 0.09# 04/20/16 20:00: Creatine Kinase MB 9.9H, Creatine Kinase MB Relative Index 8.31H, Total Creatine Kinase 119, Troponin I 0.07#, Magnesium Level 2.0, Phosphorus Level 3.2 04/20/16 22:01: Arterial Blood pH 7.308L, Arterial Blood Partial Pressure CO2 56.1H, Arterial Blood Partial Pressure O2 95.6, Arterial Blood Total CO2 29.2, Arterial Blood HCO3 27.5H, Arterial Blood Base Excess 0.3, Arterial Blood Oxygen Saturation 97.4, Blood Gas Bicarbonate Standard 24.8 04/20/16 22:58: Bedside Glucose (Misc Panel) 136H 04/21/16 04:15: Anion Gap 11, Blood Urea Nitrogen 21#H, Creatinine 2.71H, Sodium Level 139, Potassium Level 4.4, Chloride Level 100, Carbon Dioxide Level 28, Calcium Level 9.6, Glomerular Filtration Rate 24.4L 04/21/16 12:12: Bedside Glucose (Misc Panel) 129H CBC/BMP Laboratory Tests 04/21/16 04:15 Calcium Level 9.6, Red Blood Count 3.96 L, Mean Corpuscular Volume 89.0, Mean Corpuscular Hemoglobin 27.4, Mean Corpuscular Hemoglobin Concent 30.8 L, Red Cell Distribution Width 16.4 H Microbiology Microbiology 04/20/16 Blood Culture, Received Pending 04/20/16 Blood Culture - Preliminary, Resulted No growth after 24 hours . All specim... 04/21/16 Gram Stain, Received Pending 04/21/16 Sputum Culture, Received Pending 04/20/16 Respiratory Virus Panel (PCR) (MICKEY) - Final, Complete Respiratory Syncytial Virus RYANSERGIO YOUSIF Apr 21, 2016 13:43
[2016-04-21] MEDS: AZITHROMYCIN INJ 500 MG, VIAL MATE ADAPTER 1 EACH in D5W 250 ML IV SCH (17:23)
--- NOTE | 2016-04-21 17:55 | ECGEPIP ---
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 No primary repolarization abnormality. Other than the faster rate, no significant change from earlier this same day. Electronically Signed On 04-21-2016 17:54:57 EST by Pino Roberts
[2016-04-21] MEDS: LEVEMIR (INSULIN DETEMIR) 1 UNITS/0.01ML SC SCH (21:00)
[2016-04-21] MEDS: CLOPIDOGREL 75 MG TAB PO SCH (21:32)
[2016-04-21] MEDS: SIMVASTATIN 20 MG TAB PO SCH (21:32)
[2016-04-21] MEDS: TERAZOSIN 5 MG CAP PO SCH (21:38)
[2016-04-22] VITALS (12 sets, daily range): BP systolic 116–180; BP diastolic 56–86; O2SAT 97–98
[2016-04-22] MEDS: IPRATROPIUM 0.5MG/ALBUTEROL 2.5MG INH SOL UD 3ML (DUONEB)(J7620) NEB SCH ×4 (01:06→20:32)
[2016-04-22 04:32] LABS: MEAN CORPUSCULAR HEMOGLOBIN 27.4 pg (27.0-33.0); MEAN CORPUSCULAR HGB CONC 31.3 g/dl (32.0-36.5); MEAN CORPUSCULAR VOLUME 87.6 fl (80.0-96.0); RED CELL DISTRIBUTION WIDTH 16.3 % (11.5-14.5)
[2016-04-22 04:48] LABS: CALCIUM LEVEL 8.8 MG/DL (8.8-10.2); CREATININE FOR GFR 3.36 MG/DL (0.70-1.30)
--- NOTE | 2016-04-22 05:35 | IPN ---
DATE: 04/21/2016 SUBJECTIVE: Patient was seen and examined at the bedside today in the morning. Patient got hemodialysis done yesterday and despite an ultrafiltration done 3.5 liters, patient continued to have shortness of breath. Last 24 hour events were noted . Patient was evaluated by overnight on-call resident for shortness of breath. Further studies are ordered. He was given a dose of Lasix 80 mg IV. He was having hypercapnia. He was transferred to intensive care unit (ICU) and placed on continuous positive airway pressure (CPAP). Microbiologies were reviewed. Patient was found to have positive respiratory syncytial virus. Patient was on Ventimask. When I saw the patient, he was still complaining of some shortness of breath, but clinically, he was very dry. REVIEW OF SYSTEMS: Patient denies any fevers, chills, rigors, headache, nausea or vomiting. He denies any chest pain, but he reported shortness of breath and he required CPAP overnight, and he was still complaining of some wheezing. He denied any pain in abdomen, constipation or diarrhea. Rest of review of system is negative. OBJECTIVE: VITAL SIGNS: Temperature is 97.9 degrees Fahrenheit. Blood pressure is 121/59. Pulse is 85. Respiratory rate of 22. Saturating 97% on nasal cannula at 4 liters. INTAKE AND OUTPUT: Urine output recorded overnight is 145 mL. Hemodialysis done yesterday and 3.5 liter of ultrafiltration was done. Weigh ton the bed scale is 101.2 kg today. PHYSICAL EXAMINATION: GENERAL: Patient is awake, alert, oriented times three, laying in bed, wearing Ventimask, in mild respiratory distress, appears very weak and dehydrated. HEAD AND NECK EXAM: Extraocular muscles intact. Pupils equally, round and reactive to light. Mucous membranes are very dry. Neck is supple. There is no jugular venous distention (JVD). CARDIOVASCULAR: S1, S2, regular rate. No murmur, rub or gallop. RESPIRATORY: Bilateral expiratory rhonchi at the bases. Otherwise, bilateral equal air entry. ABDOMEN: Is soft. Positive bowel sounds. Nontender. No ascites. No organomegaly. EXTREMITIES: No clubbing or cyanosis. No edema. CENTRAL NERVOUS SYSTEM (LAST TRIMMER): No focal neurological deficit. Power is 5/5 in all extremities. SKIN: No rashes or ulcers. Patient is very dehydrated and dry at this time. LABORATORY REVIEW: CBC showed a WBC of 10.3, hemoglobin 10.8, platelets are 336. ABG done last night showed a pH of 7.30, pCO2 was 56, pO2 was 95, bicarbonate was 27, oxygen saturation was 97%. BMP today morning showed sodium 139, potassium 4.4, chloride 100, bicarbonate 28, BUN is 21, creatinine is 2.7. Hemoglobin A1c is 5.8. MICROBIOLOGY: PCR of upper respiratory tract showed respiratory syncytial virus. IMAGING STUDIES: A chest x-ray was done last night. It showed enlarged cardiac silhouette. However, I do not see any evidence of pulmonary edema on this x-ray. CURRENT MEDICATIONS: Patient's medications are all reviewed by me. He was given normal saline (NS) 250 mL/hr for 4 hours because of dehydration. I have stopped his long-acting inhalers and I have started him on DuoNebs every 6 hours [id number]. I have also started the patient on Solu-Medrol 60 mg intravenously (IV) every 12 hours. His oral prednisone has been stopped. ASSESSMENT: 75-year-old male with past medical history of end-stage renal disease recently been started on hemodialysis admitted this time because of acute respiratory distress. He was found out to have respiratory syncytial virus infection. PLAN: 1. Acute chronic obstructive pulmonary disease (COPD) exacerbation secondary to respiratory syncytial virus infection. I have stopped the long-acting inhalers of this patient. I started the patient on [id number] DuoNebs every 6 hours. I started him on Solu-Medrol twice a day. Continue high flow Ventimask and if needed, patient can have CPAP at night. Patient is clinically very dry. He was initially hemodialyzed yesterday attributing the shortness of breath to fluid overload. However, I had to give him 1 liter of IV fluids because of dehydration in the setting of viral infection. 2. End-stage renal disease on hemodialysis. Patient's regular hemodialysis days are Friday, Friday, Friday. He was dialyzed on last Friday and got ultrafiltration done yesterday as well. Next hemodialysis session will be tomorrow. I will dialyze the patient, but I will not remove any fluid during dialysis session. 3. Hypertension. Patient's blood pressure is acceptable at this time. Continue current dose of antihypertensive regimen. 4. History of diastolic congestive heart failure. Patient is clinically not volume overloaded. He is actually dry. Continue current dose of Coreg. He does need anymore diuretics. I am going to discontinue Prtat catheter as well. 5. Diabetes mellitus, type 2. Continue insulin sliding scale and rest of the management as per primary team. 6. Anemia secondary to end-stage renal disease. Hemoglobin is 10.8 at this time. Some of it might be secondary to dehydration. Patient will get a dose of Aranesp with hemodialysis. The plan of care was discussed with the hospitalist team, Dr. Brittany Cruz.
[2016-04-22] MEDS: HEPARIN SOD (PORCINE) 5000 UNITS/ML VIAL SQ SCH ×3 (06:25→21:39)
[2016-04-22] MEDS: LORazepam 0.5 MG TAB PO PRN ×3 (06:26→19:37)
[2016-04-22] MEDS: ISOSORBIDE DIN. (ISORDIL) 20 MG TAB PO SCH ×3 (06:26→16:39)
[2016-04-22] MEDS: ASPIRIN 81 MG ENTERIC TAB PO SCH (07:46)
[2016-04-22] MEDS: HumaLOG INSULIN (NovoLOG) PER UNIT SC SCH ×4 (07:46→21:00)
[2016-04-22] MEDS: MIRALAX *UNIT DOSE* 17GM PACKET PO SCH (07:46)
[2016-04-22] MEDS: PANTOPRAZOLE 40MG TAB (PROTONIX) PO SCH (07:46)
[2016-04-22] MEDS: MULTIVITAMINS/MINERALS THERAP 1 TAB PO SCH (07:47)
[2016-04-22] MEDS: ESCITALOPRAM OXALATE 10 MG TAB (LEXAPRO) PO SCH (07:47)
[2016-04-22] MEDS: FERROUS SULFATE 325MG TAB PO SCH (07:47)
[2016-04-22] MEDS: SENOKOT S TAB PO SCH ×2 (07:47→21:39)
[2016-04-22] MEDS: VITAMIN D 1,000 INTERNATIONAL UNITS TABLET PO SCH (07:47)
[2016-04-22] MEDS: LABETALOL 100 MG TAB PO SCH ×2 (07:48→21:38)
[2016-04-22] MEDS: **hydrALAZINE** 50 MG TAB PO SCH ×3 (07:48→21:38)
[2016-04-22] MEDS: cloNIDine 0.1 MG TAB PO SCH ×3 (07:48→21:37)
[2016-04-22] MEDS ORDERED: DARBEPOETIN 100 MCG/0.5 ML *DIALYSIS* SYRINGE (J0882) IV SCH (08:00)
--- NOTE | 2016-04-22 08:38 | IPNPDOC ---
Subjective Date Seen The patient was seen on 04/22/16. Subjective Chief Complaint/HPI The patient is a 75-year-old male admitted with a reason for visit of Acute Respiratory Distress. Events since last encounter pt seen and examined, feels better today, is sitting in bed on 3 liters of oxygen, no fevers overnight Objective Physical Examination General Exam: Positive: No Acute Distress Eye Exam: Positive: Conjunctiva & lids normal, PERRLA ENT Exam: Positive: Atraumatic, Mucous membr. moist/pink Chest Exam: Positive: Rales, Rhonchi, Wheezing Abdomen Exam: Positive: Normal bowel sounds, Soft, Negative: Hepatospenomegaly, Tenderness Extremity Exam: Positive: Swelling, Negative: Clubbing, Cyanosis, Edema, Normal pulses, Other, Tenderness Assessment /Plan Problems (1) Staph aureus infection Status: Acute Problem Text: * sensitivity pending * will continue current antibiotics * pt has been afebrile * leukocytosis resolved (2) Respiratory syncytial virus (RSV) Status: Acute Problem Text: * continue supportive care * duonebs and steroids (3) Chronic respiratory failure with hypoxia Status: Chronic Problem Text: * multifactorial, pt was dialyzed yesterday * will continue cpap if able to tolerate * pt is normally on oxygen at baseline * IV solumedrol * duonebs (4) End stage renal disease on dialysis Status: Acute Problem Text: * Dr robles is managing (5) CKD (chronic kidney disease), stage III Status: Chronic (6) COPD (chronic obstructive pulmonary disease) Status: Chronic Problem Text: * normally on 3L of oxygen (7) Gout Status: Chronic (8) Hypertension Status: Chronic (9) BPH (benign prostatic hyperplasia) Status: Acute (10) Diabetes Status: Chronic (11) ANKITA (obstructive sleep apnea) Status: Chronic Plan/VTE VTE Prophylaxis Ordered?: Yes Plan/Urinary Catheter Reason for insertion/continuin: Critical Pt monitoring VS[facility] Sign[facility]/I&O Vital Signs Date Time Temp Pulse Resp B/P Pulse Ox O2 Delivery O2 Flow Rate FiO2 04/22/16 07:48 80 133/64 04/22/16 07:43 22 Nasal Cannula 3.0 04/22/16 06:00 97 04/22/16 04:00 96.2 04/21/16 06:00 40 I&O- Last 24 Hours up to 6 AM 2/20/17 06:00 Intake Total 1530 ml Output Total 80 ml Balance 1450 ml Laboratory Data 24H LABS Laboratory Tests 2 04/21/16 12:12: Bedside Glucose (Misc Panel) 129H 04/21/16 16:39: Bedside Glucose (Misc Panel) 133H 04/21/16 21:05: Bedside Glucose (Misc Panel) 145H 04/22/16 04:19: Anion Gap 11, Blood Urea Nitrogen 40#H, Creatinine 3.36H, Sodium Level 136, Potassium Level 5.0, Chloride Level 101, Carbon Dioxide Level 24, Calcium Level 8.8, Glomerular Filtration Rate 19.0L CBC/BMP Laboratory Tests 04/22/16 04:19 Calcium Level 8.8, Red Blood Count 3.55 L, Mean Corpuscular Volume 87.6, Mean Corpuscular Hemoglobin 27.4, Mean Corpuscular Hemoglobin Concent 31.3 L, Red Cell Distribution Width 16.3 H Microbiology Microbiology 04/20/16 Blood Culture - Preliminary, Resulted No growth after 24 hours . All specim... 04/20/16 Blood Culture - Preliminary, Resulted No growth after 24 hours . All specim... 04/21/16 Gram Stain, Resulted Pending 04/21/16 Sputum Culture - Preliminary, Resulted Staphylococcus Aureus Yeast Like Organism 04/20/16 Respiratory Virus Panel (PCR) (MICKEY) - Final, Complete Respiratory Syncytial Virus SERGIO DAVIS DO Apr 22, 2016 08:38
[2016-04-22] MEDS ORDERED: HEPARIN 1,000 UNITS/ML 10ML VIAL (FOR RADIOLOGY& DIALYSIS ONLY) IV ONE (09:45)
[2016-04-22] MEDS: methylPREDNISolone INJ 125 MG/2 ML VIAL (J2930) IV SCH ×2 (13:20→23:06)
[2016-04-22] MEDS: VANCOMYCIN HCL 1,000 MG, VIAL MATE ADAPTER 1 EACH in D5W 250 ML IV SCH (13:20)
[2016-04-22] MEDS: CHECK TO SEE IF PATIENT IS RECEIVING DIALYSIS TODAY AND REFER TO THE VANCOMYCIN ORDER XX SCH (13:20)
[2016-04-22] MEDS: guaiFENesin DM LIQ 10ML UD PO PRN (15:03)
[2016-04-22] MEDS ORDERED: SLF 3 ML SYR IV PRN (15:45)
[2016-04-22] MEDS: ALBUTEROL SULFATE 2.5 MG/0.5 ML INH NEB SOLN NEB PRN (16:47)
--- NOTE | 2016-04-22 18:09 | REP ---
Clinical: Shortness of breath. Comparison: 04/20/2016. Findings: Stable cardiomegaly. Chronic interstitial changes noted. No obvious acute consolidation, effusion, or pneumothorax. Double-lumen central dialysis catheter noted in the SVC. Impression: Stable cardiomegaly and interstitial changes. No acute cardiopulmonary process appreciated. Signed by Johnny Berrios MD 04/22/2016 06:00 P
[2016-04-22] MEDS: AZITHROMYCIN INJ 500 MG, VIAL MATE ADAPTER 1 EACH in D5W 250 ML IV SCH (18:38)
[2016-04-22] MEDS: LEVEMIR (INSULIN DETEMIR) 1 UNITS/0.01ML SC SCH (21:00)
[2016-04-22] MEDS: TERAZOSIN 5 MG CAP PO SCH (21:39)
[2016-04-22] MEDS: SIMVASTATIN 20 MG TAB PO SCH (21:39)
[2016-04-22] MEDS: CLOPIDOGREL 75 MG TAB PO SCH (21:39)
[2016-04-22] MEDS: SLF 3 ML SYR IV SCH (21:40)
--- NOTE | 2016-04-22 23:53 | EDDOCDS ---
Physician Documentation [facility] Name: Davin Snyder Age: 75 yrs Sex: Male : 1940 Arrival Date: 04/20/2016 Time: 09:24 Bed Admit Hold Private MD: Disposition: 04/20/16 14:20 Hospitalization ordered by Ruthie Coleman for Inpatient Admission. Preliminary diagnosis is Shortness of breath. - Bed requested for M ICU. - Status is Inpatient Admission. mar - Condition is Stable. - Problem is new. - Symptoms have improved. Historical: - Allergies: no known allergies; - Home Meds: 1. Oxygen 3LNC Continuous (Last dose: 04/20/2016 09:38) 2. clonidine HCl 0.1 mg Oral tab 1 tab 2 times per day (Last dose: 04/19/2016) 3. albuterol sulfate 2.5 mg /3 mL (0.083 %) Inhl nebu 3 mL 3 times per day (Last dose: 04/19/2016 05:00) 4. ferrous sulfate 325 mg (65 mg iron) Oral tab twice a day (Last dose: 04/20/2016 05:00) 5. acetaminophen-codeine 300-60 mg Oral tab 1 tab as needed (Last dose: 04/20/2016 05:00) 6. aspirin 81 mg Oral TbEC 1 tab once daily (Last dose: 04/20/2016 05:00) 7. colchicine 0.6 mg Oral tab as needed (Last dose: 04/20/2016 05:00) 8. Complete 50+ oral 1 tab daily (Last dose: 04/20/2016 05:00) 9. furosemide 40 mg Oral tab 1 tab Mon, Wed, Fri (Last dose: 04/19/2016 05:00) 10. glipizide 10 mg Oral tab three times a day (Last dose: 04/20/2016 05:00) 11. hydralazine 25 mg Oral tab 1 tab 2 times per day (Last dose: 04/19/2016 05:00) 12. hydrochlorothiazide 12.5 mg Oral cap 1 cap once daily (Last dose: 04/19/2016 05:00) 13. hydroxyzine pamoate 50 mg Oral cap 1 cap nightly (Last dose: 04/20/2016 05:00) 14. labetalol 200 mg Oral tab 1 tab 2 times per day (Last dose: 04/20/2016 05:00) 15. Lantus 100 unit/mL Sub-Q soln 36 unit daily (Last dose: 04/19/2016 20:00) 16. losartan 50 mg oral tab 1 tab once daily (Last dose: 04/19/2016 05:00) 17. nifedipine 60 mg Oral tr24 2 tabs once daily (Last dose: 04/19/2016 05:00) 18. Novolog 100 unit/mL Sub-Q soln 12 unit three times a day (Last dose: 04/19/2016 05:00) 19. omeprazole 20 mg Oral cpDR 1 cap once daily (Last dose: 04/19/2016 05:00) 20. Proventil 90 mcg/actuation Inhl aero 2 puffs as needed (Last dose: 04/19/2016 05:00) 21. simvastatin 40 mg Oral tab 0.5 tab nightly (Last dose: 04/19/2016 20:00) 22. Spiriva with HandiHaler 18 mcg Inhl CpDv 1 cap once daily (Last dose: 04/19/2016 05:00) 23. Symbicort 160-4.5 mcg/actuation inhalation HFAA 2 puffs 2 times per day (Last dose: 04/19/2016 05:00) 24. terazosin 5 mg oral cap nightly (Last dose: 04/19/2016 20:00) 25. Tylenol Arthritis Pain 650 mg oral TbER 1 tabs twice a day (Last dose: 04/19/2016 05:00) 26. Vitamin C 500 mg Oral tab 500 mg daily (Last dose: 04/19/2016 05:00) 27. Vitamin D3 1,000 unit oral tab daily (Last dose: 04/19/2016 05:00) - PMHx: CHF; COPD; Diabetes - IDDM: controlled; GERD; Gout; High Cholesterol; Hypertension; Renal Failure with Dialysis; oxygen dependent; PA; BPH; PE; Sleep Apnea w/o CPAP; - PSHx: Colon Resection; Appendectomy; Cholecystectomy; bilateral knee replacements; - Family history: Not pertinent. - Social history: Smoking status: Patient states former smoker of tobacco. No barriers to communication noted, Speaks appropriately for age. - : The pt / caregiver states he / she is not on anticoagulants. Home medication list is obtained from the facility [facility], Home medication list is obtained from the facility [facility]. - Exposure Risk Screening:: None identified. None identified. Vital Signs: 04/20 09:52 BP 152 / 70; Pulse 82; Resp 24; Temp 97.1(O); Pulse Ox 95% on 3 lpm NC; Weight 105.2 kg dem1 / 231.93 lbs (M); Height 6 ft. 1 in. (185.42 cm); 10:14 BP 138 / 65 (auto/); js13 10:14 Pulse 78 MON; Resp 18; Pulse Ox 94% on 3 lpm NC; js13 10:29 BP 146 / 60 (auto/); js13 10:29 Pulse 76 MON; Resp 18; Pulse Ox 95% on 3 lpm NC; js13 10:44 BP 161 / 72 (auto/); js13 10:44 Pulse 74 MON; Resp 18; Pulse Ox 94% on 3 lpm NC; js13 10:59 BP 161 / 73 (auto/); js13 10:59 Pulse 74 MON; Resp 16; Pulse Ox 96% on 3 lpm NC; js13 11:14 BP 155 / 72 (auto/); js13 11:14 Pulse 74 MON; Resp 16; Pulse Ox 97% on 3 lpm NC; js13 11:29 BP 163 / 75 (auto/); js13 11:29 Pulse 72 MON; Resp 18; Pulse Ox 98% on 3 lpm NC; js13 11:44 BP 164 / 75 (auto/); js13 11:44 Pulse 74 MON; Resp 18; Pulse Ox 97% on 3 lpm NC; js13 11:59 BP 166 / 66 (auto/); js13 11:59 Pulse 74 MON; Resp 18; Pulse Ox 97% on 3 lpm NC; js13 12:14 BP 166 / 76 (auto/); js13 12:14 Pulse 76 MON; Resp 18; Pulse Ox 97% on 3 lpm NC; js13 12:29 BP 163 / 74 (auto/); js13 12:29 Pulse 76 MON; Resp 18; Pulse Ox 96% on 3 lpm NC; js13 12:44 BP 170 / 74 (auto/); js13 12:44 Pulse 74 MON; Resp 18; Pulse Ox 95% on 3 lpm NC; js13 12:59 BP 171 / 77 (auto/); js13 12:59 Pulse 76 MON; Resp 18; Temp 97.3(O); Pulse Ox 94% on 3 lpm NC; js13 13:14 BP 171 / 77 (auto/); bcj 13:14 Pulse 74 MON; Resp 18; Pulse Ox 94% on 3 lpm NC; bcj 13:29 BP 168 / 76 (auto/); bcj 13:29 Pulse 74 MON; Resp 18; Pulse Ox 94% on 3 lpm NC; bcj 13:44 BP 176 / 71 (auto/); bcj 13:44 Pulse 80 MON; Resp 18; Pulse Ox 94% on 3 lpm NC; bcj 13:59 BP 179 / 84 (auto/); bcj 13:59 Pulse 80 MON; Resp 18; Pulse Ox 94% on 3 lpm NC; bcj 14:14 BP 186 / 79 (auto/); bcj 14:14 Pulse 88 MON; Resp 18; Pulse Ox 93% on 3 lpm NC; bcj 14:29 BP 154 / 72 (auto/); bcj 14:29 Pulse 82 MON; Resp 18; Temp 97.2(O); Pulse Ox 94% 3 lpm ; bcj 09:52 Body Mass Index 30.60 (105.20 kg, 185.42 cm) dem1 MDM: 09:29 ECG WITH READING ER PHYS+CARDIAG ordered. EDMS 09:41 -Blood Culture (Adults Only), peripheral from different site, or from device/port/PICC fg etc. if present ordered. 09:41 Political Organizer/Pulse Ox/q 15 min VS ordered. fg 09:41 IV Saline Lock ordered. fg 09:41 Oxygen at 4L/Min NC or Home dosage ordered. fg 09:41 Rhythm Strip to chart ordered. fg 09:42 -Arterial Blood Gas Ordered. EDMS 09:42 B-Type Natiuretic Peptide Ordered. EDMS 09:42 Basic Metabolic Profile Ordered. EDMS 09:42 CBC with Diff Ordered. EDMS 09:42 Cardiac Injury Profile Ordered. EDMS 09:42 Troponin Ordered. EDMS 09:43 Chest, 1 View Ordered. EDMS 09:48 -Blood Culture (Adults Only), peripheral from different site, or from device/port/PICC ar3 etc. if present complete. 09:50 BLOOD CULTURES Ordered. EDMS 09:51 [facility] Payment Agreement was scanned into [employer] and attached to record. [email or web address] 09:51 Financial registration complete. [email or web address] 13:26 Cardiac Marker Panel Ordered. EDMS 13:26 Troponin Ordered. EDMS 14:06 Call Respiratory ordered. fg 14:06 LORazepam 0.5 mg IVP once ordered. fg 14:07 BIPAP INPATIENT+RESP-VENT ordered. EDMS 14:09 Call Respiratory complete. ar3 14:25 Misc. Nursing Order ordered. fg 14:39 Admission / Observation Status ordered. EDMS 14:39 CONSISTENT CARBOHYDRATES ordered. EDMS 15:15 SPUTUM CULTURE AND GRAM STAIN Ordered. EDMS 15:15 RESPIRATORY PANEL Ordered. EDMS 18:23 T-Sheet-- Draft Copy was scanned into [employer] and attached to record. klr 18:49 CARDIAC MARKER PANEL Ordered. EDMS 19:31 HEMOGLOBIN A1C Ordered. EDMS 19:31 COMPLETE BLOOD COUNT Ordered. EDMS 19:31 BASIC METABOLIC PROFILE Ordered. EDMS 21:50 ELECTROCARDIOGRAM ADULT ordered. EDMS 21:57 ARTERIAL BLOOD GAS Ordered. EDMS 22:00 BLOOD CULTURES Ordered. EDMS 22:02 PORTABLE CHEST X-RAY Ordered. EDMS 22:16 BIPAP INPATIENT ordered. EDMS 22:22 CPAP INPATIENT ordered. EDMS 22:28 MAGNESIUM LEVEL Ordered. EDMS 22:29 PHOSPHOROUS LEVEL Ordered. EDMS Administered Medications: 14:17 Drug: LORazepam 0.5 mg [lorazepam 2 mg/mL injection solution (0.25 mL)] Route: IVP; js13 Site: left antecubital; 14:33 Follow up: Response: Anxiety is improved js13 Signatures: Dispatcher [employer] EDMS Jazzmine Taylor RN RN jan Lopresti, Mary-Elizabeth, Occupational Therapist Assistant Unit ml3 Graeme Hillman RN RN ml6 Nayeli Quiñonez, INCIDENT RESPONSE ENGINEER INCIDENT RESPONSE ENGINEER ar3 Jennifer StephensonRN RN js13 Tawana Crews MD MD fg Sorenson, Kimberly, Reg Reg [email or web address] Beatriz Kingsley The chart was reviewed and I authenticate all verbal orders and agree with the evaluation and treatment provided.Corrections: (The following items were deleted from the chart) 22:28 22:26 MAGNESIUM LEVEL ordered. EDMS EDMS 22:28 22:26 PHOSPHOROUS LEVEL ordered. EDMS EDMS Attachments: 09:51 [facility] Payment Agreement [email or web address] 18:23 T-Sheet-- Draft Copy klr Chart Complete MTDD
--- NOTE | 2016-04-22 23:53 | EDDOCDS ---
Nurse's Notes [facility] Name: Davin Snyder Age: 75 yrs Sex: Male : 1940 Arrival Date: 04/20/2016 Time: 09:24 Bed Admit Hold Private MD: Diagnosis: Shortness of breath Presentation: 04/20 09:26 Presenting complaint: Patient states: difficulty breathing started today. gave neb with srm little effect. usually uses 3 LNC and sats were 90%. upped his oxygen to 3.5LNC and sats increased to 92%. Adult Sepsis Screening: The patient does not have new or worsening altered mentation. Patient's respiratory rate is less than 22. Systolic blood pressure is greater than 100. Patient has a qSOFA score of 0- Negative Sepsis Screen. Suicide/Homicide risk assessment- the patient denies having any suicidal and/or homicidal ideations and does not present with any other emotional, behavioral or mental health complaints. Status: Patient is not a business services director or dependent. Transition of care: patient was received from [facility]. 09:26 Acuity: MONA Level 3 srm 09:26 Method Of Arrival: Ambulance [facility] 09:29 Presenting complaint: EMS states: transferred for [facility] for increased SOB. Adult Sepsis ml6 Screening: The patient does not have new or worsening altered mentation. Patient has a respiratory rate of greater than or equal to 22 (1 point). Systolic blood pressure is greater than 100. Patient has a qSOFA score of 0- Negative Sepsis Screen. Suicide/Homicide risk assessment- the patient denies having any suicidal and/or homicidal ideations and does not present with any other emotional, behavioral or mental health complaints. Status: Patient is not a business services director or dependent. Transition of care: patient was not received from another setting of care. 09:29 Acuity: OMNA Level 3 ml6 09:29 Method Of Arrival: Ambulance ml6 09:29 Suicide/Homicide risk assessment- the patient denies having any suicidal and/or js13 homicidal ideations and does not present with any other emotional, behavioral or mental health complaints. Status: Patient is not a business services director or dependent. Transition of care: patient was received from [facility]. Care prior to arrival: See EMS report. Medications administered prior to arrival:. 09:29 Method Of Arrival: Ambulance js13 Triage Assessment: 09:30 General: Appears in no apparent distress, Behavior is appropriate for age, cooperative. js13 Pain: Denies pain. Neurological: No deficits noted. Level of Consciousness is awake, alert. Cardiovascular: Rhythm is regular Chest pain is denied. Respiratory: Onset: The symptoms/episode began/occurred yesterday. Respiratory: Airway is patent Respiratory effort is even, unlabored, Respiratory pattern is regular, symmetrical, Breath sounds are coarse Breath sounds with rhonchi Breath sounds are diminished. Derm: Skin is pink, warm & dry. Historical: - Allergies: no known allergies; - Home Meds: 1. Oxygen 3LNC Continuous (Last dose: 04/20/2016 09:38) 2. clonidine HCl 0.1 mg Oral tab 1 tab 2 times per day (Last dose: 04/19/2016) 3. albuterol sulfate 2.5 mg /3 mL (0.083 %) Inhl nebu 3 mL 3 times per day (Last dose: 04/19/2016 05:00) 4. ferrous sulfate 325 mg (65 mg iron) Oral tab twice a day (Last dose: 04/20/2016 05:00) 5. acetaminophen-codeine 300-60 mg Oral tab 1 tab as needed (Last dose: 04/20/2016 05:00) 6. aspirin 81 mg Oral TbEC 1 tab once daily (Last dose: 04/20/2016 05:00) 7. colchicine 0.6 mg Oral tab as needed (Last dose: 04/20/2016 05:00) 8. Complete 50+ oral 1 tab daily (Last dose: 04/20/2016 05:00) 9. furosemide 40 mg Oral tab 1 tab Mon, Wed, Fri (Last dose: 04/19/2016 05:00) 10. glipizide 10 mg Oral tab three times a day (Last dose: 04/20/2016 05:00) 11. hydralazine 25 mg Oral tab 1 tab 2 times per day (Last dose: 04/19/2016 05:00) 12. hydrochlorothiazide 12.5 mg Oral cap 1 cap once daily (Last dose: 04/19/2016 05:00) 13. hydroxyzine pamoate 50 mg Oral cap 1 cap nightly (Last dose: 04/20/2016 05:00) 14. labetalol 200 mg Oral tab 1 tab 2 times per day (Last dose: 04/20/2016 05:00) 15. Lantus 100 unit/mL Sub-Q soln 36 unit daily (Last dose: 04/19/2016 20:00) 16. losartan 50 mg oral tab 1 tab once daily (Last dose: 04/19/2016 05:00) 17. nifedipine 60 mg Oral tr24 2 tabs once daily (Last dose: 04/19/2016 05:00) 18. Novolog 100 unit/mL Sub-Q soln 12 unit three times a day (Last dose: 04/19/2016 05:00) 19. omeprazole 20 mg Oral cpDR 1 cap once daily (Last dose: 04/19/2016 05:00) 20. Proventil 90 mcg/actuation Inhl aero 2 puffs as needed (Last dose: 04/19/2016 05:00) 21. simvastatin 40 mg Oral tab 0.5 tab nightly (Last dose: 04/19/2016 20:00) 22. Spiriva with HandiHaler 18 mcg Inhl CpDv 1 cap once daily (Last dose: 04/19/2016 05:00) 23. Symbicort 160-4.5 mcg/actuation inhalation HFAA 2 puffs 2 times per day (Last dose: 04/19/2016 05:00) 24. terazosin 5 mg oral cap nightly (Last dose: 04/19/2016 20:00) 25. Tylenol Arthritis Pain 650 mg oral TbER 1 tabs twice a day (Last dose: 04/19/2016 05:00) 26. Vitamin C 500 mg Oral tab 500 mg daily (Last dose: 04/19/2016 05:00) 27. Vitamin D3 1,000 unit oral tab daily (Last dose: 04/19/2016 05:00) - PMHx: CHF; COPD; Diabetes - IDDM: controlled; GERD; Gout; High Cholesterol; Hypertension; Renal Failure with Dialysis; oxygen dependent; MT; BPH; PE; Sleep Apnea w/o CPAP; - PSHx: Colon Resection; Appendectomy; Cholecystectomy; bilateral knee replacements; - Family history: Not pertinent. - Social history: Smoking status: Patient states former smoker of tobacco. No barriers to communication noted, Speaks appropriately for age. - : The pt / caregiver states he / she is not on anticoagulants. Home medication list is obtained from the facility MAR, Home medication list is obtained from the facility MAR. - Exposure Risk Screening:: None identified. None identified. Screenin:32 Screening information is obtained from residence staff. Fall risk: At risk due to age, js13 immobility. Assistance ADL's: Requires assistance with. Abuse/DV Screen: The patient / caregiver reports he/she is: not in a situation that causes fear, pain or injury. Nutritional screening: No deficits noted. Advance Directives: There is no active DNR order. home support is adequate. Assessment: 09:33 General: Appears in no apparent distress, Behavior is appropriate for age, cooperative. js13 Pain: Denies pain. Neurological: Level of Consciousness is awake, alert. Cardiovascular: Rhythm is regular Chest pain is denied. Respiratory: Airway is patent Respiratory effort is even, unlabored, Respiratory pattern is regular, symmetrical, Breath sounds are coarse Breath sounds with crackles Breath sounds with rhonchi Breath sounds are diminished. Derm: Skin is pink, warm & dry. 10:37 General: Appears in no apparent distress, comfortable, Behavior is appropriate for age, js13 cooperative. Pain: Denies pain. Neurological: Level of Consciousness is awake, alert. Cardiovascular: Rhythm is regular Chest pain is denied. Respiratory: Airway is patent Respiratory effort is even, unlabored, Respiratory pattern is regular, symmetrical, Breath sounds are coarse Breath sounds with rhonchi Breath sounds are diminished. Derm: Skin is pink, warm & dry. 11:27 Adult Sepsis Screening: The patient does not have new or worsening altered mentation. js13 Patient's respiratory rate is less than 22. Systolic blood pressure is greater than 100. Patient has a qSOFA score of 0- Negative Sepsis Screen. General: Appears in no apparent distress, comfortable, Behavior is appropriate for age, cooperative. Pain: Denies pain. Neurological: Level of Consciousness is awake, alert. Cardiovascular: Rhythm is regular Chest pain is denied. Respiratory: Airway is patent Respiratory effort is even, unlabored, Respiratory pattern is regular, symmetrical. Derm: Skin is pink, warm & dry. 12:10 General: Appears in no apparent distress, comfortable, Behavior is appropriate for age, js13 cooperative. Pain: Denies pain. Neurological: Level of Consciousness is awake, alert. Cardiovascular: Rhythm is regular Chest pain is denied. Respiratory: Airway is patent Respiratory effort is even, unlabored, Respiratory pattern is regular, symmetrical, Breath sounds with rhonchi Breath sounds are diminished. Derm: Skin is pink, warm & dry. 13:11 Adult Sepsis Screening: The patient does not have new or worsening altered mentation. js13 Patient's respiratory rate is less than 22. Systolic blood pressure is greater than 100. Patient has a qSOFA score of 0- Negative Sepsis Screen. General: Appears in no apparent distress, comfortable, to be sleeping. Respiratory: Airway is patent Respiratory effort is even, Respiratory pattern is regular, symmetrical. Derm: Skin is pink, warm & dry. 14:17 General: Appears uncomfortable, Behavior is cooperative. Pain: Denies pain. js13 Neurological: Level of Consciousness is awake, alert. Cardiovascular: Rhythm is regular Chest pain is denied. Respiratory: Airway is patent Respiratory effort is even, Respiratory pattern is regular, symmetrical, Reports air hunger since 20 min. Derm: Skin is pink, warm & dry. 14:57 General: Appears in no apparent distress, comfortable, Behavior is appropriate for age, bcj cooperative. General: Patient to dialysis.. Pain: Denies pain. Neurological: Level of Consciousness is awake, alert. Cardiovascular: Rhythm is regular Chest pain is denied. Respiratory: Airway is patent Respiratory effort is even, Respiratory pattern is regular. Derm: Skin is pink, warm & dry. 14:57 Adult Sepsis Screening: The patient does not have new or worsening altered mentation. bcj Patient's respiratory rate is less than 22. Systolic blood pressure is greater than 100. Patient has a qSOFA score of 0- Negative Sepsis Screen. Vital Signs: 09:52 BP 152 / 70; Pulse 82; Resp 24; Temp 97.1(O); Pulse Ox 95% on 3 lpm NC; Weight 105.2 kg dem1 (M); Height 6 ft. 1 in. (185.42 cm); 10:14 BP 138 / 65 (auto/); js13 10:14 Pulse 78 MON; Resp 18; Pulse Ox 94% on 3 lpm NC; js13 10:29 BP 146 / 60 (auto/); js13 10:29 Pulse 76 MON; Resp 18; Pulse Ox 95% on 3 lpm NC; js13 10:44 BP 161 / 72 (auto/); js13 10:44 Pulse 74 MON; Resp 18; Pulse Ox 94% on 3 lpm NC; js13 10:59 BP 161 / 73 (auto/); js13 10:59 Pulse 74 MON; Resp 16; Pulse Ox 96% on 3 lpm NC; js13 11:14 BP 155 / 72 (auto/); js13 11:14 Pulse 74 MON; Resp 16; Pulse Ox 97% on 3 lpm NC; js13 11:29 BP 163 / 75 (auto/); js13 11:29 Pulse 72 MON; Resp 18; Pulse Ox 98% on 3 lpm NC; js13 11:44 BP 164 / 75 (auto/); js13 11:44 Pulse 74 MON; Resp 18; Pulse Ox 97% on 3 lpm NC; js13 11:59 BP 166 / 66 (auto/); js13 11:59 Pulse 74 MON; Resp 18; Pulse Ox 97% on 3 lpm NC; js13 12:14 BP 166 / 76 (auto/); js13 12:14 Pulse 76 MON; Resp 18; Pulse Ox 97% on 3 lpm NC; js13 12:29 BP 163 / 74 (auto/); js13 12:29 Pulse 76 MON; Resp 18; Pulse Ox 96% on 3 lpm NC; js13 12:44 BP 170 / 74 (auto/); js13 12:44 Pulse 74 MON; Resp 18; Pulse Ox 95% on 3 lpm NC; js13 12:59 BP 171 / 77 (auto/); js13 12:59 Pulse 76 MON; Resp 18; Temp 97.3(O); Pulse Ox 94% on 3 lpm NC; js13 13:14 BP 171 / 77 (auto/); bcj 13:14 Pulse 74 MON; Resp 18; Pulse Ox 94% on 3 lpm NC; bcj 13:29 BP 168 / 76 (auto/); bcj 13:29 Pulse 74 MON; Resp 18; Pulse Ox 94% on 3 lpm NC; bcj 13:44 BP 176 / 71 (auto/); bcj 13:44 Pulse 80 MON; Resp 18; Pulse Ox 94% on 3 lpm NC; bcj 13:59 BP 179 / 84 (auto/); bcj 13:59 Pulse 80 MON; Resp 18; Pulse Ox 94% on 3 lpm NC; bcj 14:14 BP 186 / 79 (auto/); bcj 14:14 Pulse 88 MON; Resp 18; Pulse Ox 93% on 3 lpm NC; bcj 14:29 BP 154 / 72 (auto/); bcj 14:29 Pulse 82 MON; Resp 18; Temp 97.2(O); Pulse Ox 94% 3 lpm ; bcj 09:52 Body Mass Index 30.60 (105.20 kg, 185.42 cm) dem1 Vitals: 09:30 Log In Time N/A - ambulance arrival. js13 ED Course: 09:25 Patient visited by Nayeli Quiñonez PCA. ar3 09:25 Jennifer Stephenson,RN is Primary Nurse. ar3 09:25 Patient moved to Waiting ar3 09:25 Patient moved to 14 ar3 09:26 Tawana Crews MD is Attending Physician. fg 09:26 Patient visited by Tawana Crews MD. fg 09:30 Triage Initiated srm 09:32 The patient / caregiver is instructed regarding the plan of care and ED course. Cardiac js13 monitor on. Pulse ox on. NIBP on. 09:33 Patient visited by Jennifer Stephenson RN. js13 09:40 Pt greeted and oriented to ED. Patient advised of names of staff involved in care, [facility] location of call [place], wait times and NPO status. Patient has correct armband on for positive identification. Placed in gown. Bed in low position. Call light in reach. Side rails up X2. 09:40 EKG done. (by ED staff). Reviewed by Tawana Crews MD. dem1 09:49 Patient visited by Israel Gay. dem1 09:51 [facility] Payment Agreement was scanned into Going and attached to record. ks16 09:53 Patient visited by Israel Gay. dem1 10:05 -Arterial Blood Gas Sent. cs15 10:11 BLOOD CULTURES Sent. js13 10:11 B-Type Natiuretic Peptide Sent. js13 10:11 Basic Metabolic Profile Sent. js13 10:11 CBC with Diff Sent. js13 10:11 Cardiac Injury Profile Sent. js13 10:11 Troponin Sent. js13 10:14 Chest, 1 View Returned. EDMS 10:15 Inserted peripheral IV: 18gauge IV in left forearm and blood collected. Patient ml6 tolerated the procedure well. Labs drawn. (by ED staff). Sent per order to lab. 10:38 Patient visited by Jennifer Stephenson RN. js13 11:29 Patient visited by Jennifer Stephenson RN. js13 12:11 Patient visited by Jenniefr Stephenson RN. js13 12:20 Primary Nurse role handed off by Jennifer Stephenson,CECILIO ml6 12:28 Jennifer Stephenson RN is Primary Nurse. js13 13:12 Patient visited by Jennifer Stephenson RN. js13 14:16 Ruthie Coleman educational assistant. ys2 14:18 Patient visited by Jennifer Stephenson RN. js13 14:19 Ruthie Coleman is Hospitalizing Provider. fg 14:34 Patient moved to Admit Hold js13 15:00 Patient visited by Aramis Christianson RN. bcj 17:31 Patient moved to 21 ml6 17:32 Patient moved to 14 js13 18:23 T-Sheet-- Draft Copy was scanned into Going and attached to record. klr 18:41 Patient moved to 19 kpj 20:26 Patient moved to Admit Hold ml3 Administered Medications: 14:17 Drug: LORazepam 0.5 mg [lorazepam 2 mg/mL injection solution (0.25 mL)] Route: IVP; js13 Site: left antecubital; 14:33 Follow up: Response: Anxiety is improved js13 RT: 10:05 ABG's drawn from right radial artery allens test done and positive pressure held for 5 cs15 minutes no bleeding noted pressure bandage applied specimen sent pt. tolerated well. O2 via nasal cannula \T\ 3L/min. Respiratory: Respiratory effort is unlabored, Respiratory pattern is tachypnea. Order Results: Lab Order: -Arterial Blood Gas; SPEC'M 04/20/16 10:03 Test: ABG pH (ARTERIAL); Value: 7.441; Range: 7.350-7.450; Units: UNITS; Status: F Test: ABG PARTIAL PRESSURE CO2; Value: 44.4; Range: 35.0-45.0; Units: mmHg; Status: F Test: ABG PARTIAL PRESSURE O2; Value: 69.2; Range: 75.0-100.0; Abnormal: Below low normal; Units: mmHg; Status: F Test: ABG TOTAL CO2; Value: 30.9; Range: 23.0-31.0; Units: MEQ/L; Status: F Test: ABG HCO3; Value: 29.5; Range: 22.0-26.0; Abnormal: Above high normal; Units: MEQ/L; Status: F Test: ABG BASE EXCESS; Value: 4.9; Range: -2.0-2.0; Abnormal: Above high normal; Status: F Test: ABG STANDARD HCO3; Value: 28.8; Range: 22.0-26.0; Abnormal: Above high normal; Units: MEQ/L; Status: F Test: ABG O2 SATURATION; Value: 95.2; Range: 95.0-99.0; Units: %; Status: F Test: ABG DEVICE; Value: NASAL EDUARDO; Status: F Lab Order: B-Type Natiuretic Peptide; [facility] 04/20/16 09:51 Test: BRAIN NATRIURETIC PEPTIDE; Value: 350; Range: <100; Abnormal: Above high normal; Units: PG/ML; Status: F Lab Order: Basic Metabolic Profile; [facility] 04/20/16 09:51 Test: GLUCOSE, FASTING; Value: 109; Range: 83-110; Units: MG/DL; Status: F Test: BLOOD UREA NITROGEN; Value: 13; Range: 7-18; Units: MG/DL; Status: F Test: CREATININE FOR GFR; Value: 1.87; Range: 0.70-1.30; Abnormal: Above high normal; Units: MG/DL; Status: F Test: GLOMERULAR FILTRATION RATE; Value: 37.5; Range: >42; Abnormal: Below low normal; Status: F Test: SODIUM LEVEL; Value: 142; Range: 136-145; Units: MEQ/L; Status: F Test: POTASSIUM SERUM; Value: 3.9; Range: 3.5-5.1; Units: MEQ/L; Status: F Test: CHLORIDE LEVEL; Value: 103; Range: 98-107; Units: MEQ/L; Status: F Test: CARBON DIOXIDE LEVEL; Value: 31; Range: 21-32; Units: MEQ/L; Status: F Test: ANION GAP; Value: 8; Range: 8-16; Units: MEQ/L; Status: F Test: CALCIUM LEVEL; Value: 9.1; Range: 8.8-10.2; Units: MG/DL; Status: F Test Note: ; Units are mL/min/1.73 m2 Chronic Kidney Disease Staging per NKF: Stage I & II GFR >=60 Normal to Mildly Decreased Stage III GFR 30-59 Moderately Decreased Stage IV GFR 15-29 Severely Decreased Stage V GFR <15 Very Little GFR Left ESRD GFR <15 on MEASUREMENT PSYCHOLOGIST Lab Order: CBC with Diff; SPEC'M 04/20/16 09:51 Test: WHITE BLOOD COUNT; Value: 9.9; Range: 4.0-10.0; Units: K/mm3; Status: F Test: RED BLOOD COUNT; Value: 3.30; Range: 4.30-6.10; Abnormal: Below low normal; Units: M/mm3; Status: F Test: HEMOGLOBIN; Value: 9.0; Range: 14.0-18.0; Abnormal: Below low normal; Units: g/dl; Status: F Test: HEMATOCRIT; Value: 29.0; Range: 42.0-52.0; Abnormal: Below low normal; Units: %; Status: F Test: MEAN CORPUSCULAR VOLUME; Value: 88.0; Range: 80.0-96.0; Units: fl; Status: F Test: MEAN CORPUSCULAR HEMOGLOBIN; Value: 27.3; Range: 27.0-33.0; Units: pg; Status: F Test: MEAN CORPUSCULAR HGB CONC; Value: 31.0; Range: 32.0-36.5; Abnormal: Below low normal; Units: g/dl; Status: F Test: RED CELL DISTRIBUTION WIDTH; Value: 16.1; Range: 11.5-14.5; Abnormal: Above high normal; Units: %; Status: F Test: PLATELET COUNT, AUTOMATED; Value: 290; Range: 150-450; Units: k/mm3; Status: F Test: NEUTROPHILS %; Value: 80.8; Range: 36.0-66.0; Abnormal: Above high normal; Units: %; Status: F Test: LYMPH %; Value: 6.9; Range: 24.0-44.0; Abnormal: Below low normal; Units: %; Status: F Test: MONO %; Value: 5.4; Range: 0.0-5.0; Abnormal: Above high normal; Units: %; Status: F Test: EOS %; Value: 5.1; Range: 0.0-3.0; Abnormal: Above high normal; Units: %; Status: F Test: BASO %; Value: 0.5; Range: 0.0-1.0; Units: %; Status: F Test: LARGE UNSTAINED CELL %; Value: 1.4; Range: 0.0-4.0; Units: %; Status: F Test: NEUTROPHILS #; Value: 8.0; Range: 1.8-7.7; Abnormal: Above high normal; Units: K/mm3; Status: F Test: LYMPH #; Value: 0.8; Range: 1.5-4.5; Abnormal: Below low normal; Units: K/mm3; Status: F Test: MONO #; Value: 0.5; Range: 0.0-0.8; Units: K/mm3; Status: F Test: EOS #; Value: 0.5; Range: 0.0-0.50; Units: K/mm3; Status: F Test: BASO #; Value: 0.0; Range: 0.0-0.2; Units: K/mm3; Status: F Test: LARGE UNSTAINED CELL #; Value: 0.1; Range: 0.0-0.4; Units: K/mm3; Status: F Lab Order: Cardiac Injury Profile; [facility] 04/20/16 09:51 Test: CPK CREATINE PHOSPHOKINASE; Value: 118; Range: 39-308; Units: U/L; Status: F Test: CK-MB VALUE MASS; Value: 9.5; Range: 0.0-3.6; Abnormal: Above high normal; Units: NG/ML; Status: F Test: MB/CK RELATIVE INDEX; Value: 8.05; Range: < OR =4; Abnormal: Above high normal; Status: F Test Note: ; DIAGNOSIS CRITERIA MMB ng/ml Relative Index (RI) NON-AMI < or = 5 N/A [place] > 5 < or = 4 AMI > 5 > 4 Lab Order: Troponin; SPEC'M 04/20/16 09:51 Test: TROPONIN I; Value: 0.05; Range: < 0.10; Units: NG/ML; Status: F Test Note: ; Troponin I Reference Interval for Siemens Coy LOCI: 99th Percentile= 0.00-0.045 ng/ml Risk Stratification: <= 0.10 ng/ml Decreased Risk for Adverse Clinical Events. 0.10-1.50 ng/ml Increased Risk for Adverse Clinical Events. Evaluation of additional criterion and/or repeat testing in 2-6 hours is suggested to rule out myocardial damage. >= 1.50 ng/ml Indicative of Myocardial Injury. Lab Order: Cardiac Marker Panel; [facility] 04/20/16 14:04 Test: CPK CREATINE PHOSPHOKINASE; Value: 106; Range: 39-308; Units: U/L; Status: F Test: CK-MB VALUE MASS; Value: 8.6; Range: 0.0-3.6; Abnormal: Above high normal; Units: NG/ML; Status: F Test: MB/CK RELATIVE INDEX; Value: 8.11; Range: < OR =4; Abnormal: Above high normal; Status: F Test: TROPONIN I; Value: 0.09; Range: < 0.10; Abnormal: Delta; Units: NG/ML; Status: F Test Note: ; DIAGNOSIS CRITERIA MMB ng/ml Relative Index (RI) NON-AMI < or = 5 N/A [place] > 5 < or = 4 AMI > 5 > 4 Lab Order: CARDIAC MARKER PANEL; [facility] 04/20/16 20:00 Test: CPK CREATINE PHOSPHOKINASE; Value: 119; Range: 39-308; Units: U/L; Status: F Test: CK-MB VALUE MASS; Value: 9.9; Range: 0.0-3.6; Abnormal: Above high normal; Units: NG/ML; Status: F Test: MB/CK RELATIVE INDEX; Value: 8.31; Range: < OR =4; Abnormal: Above high normal; Status: F Test: TROPONIN I; Value: 0.07; Range: < 0.10; Abnormal: Delta; Units: NG/ML; Status: F Test Note: ; DIAGNOSIS CRITERIA MMB ng/ml Relative Index (RI) NON-AMI < or = 5 N/A [place] > 5 < or = 4 AMI > 5 > 4 Lab Order: ARTERIAL BLOOD GAS; [facility] 04/20/16 22:01 Test: ABG pH (ARTERIAL); Value: 7.308; Range: 7.350-7.450; Abnormal: Below low normal; Units: UNITS; Status: F Test: ABG PARTIAL PRESSURE CO2; Value: 56.1; Range: 35.0-45.0; Abnormal: Above high normal; Units: mmHg; Status: F Test: ABG PARTIAL PRESSURE O2; Value: 95.6; Range: 75.0-100.0; Units: mmHg; Status: F Test: ABG TOTAL CO2; Value: 29.2; Range: 23.0-31.0; Units: MEQ/L; Status: F Test: ABG HCO3; Value: 27.5; Range: 22.0-26.0; Abnormal: Above high normal; Units: MEQ/L; Status: F Test: ABG BASE EXCESS; Value: 0.3; Range: -2.0-2.0; Status: F Test: ABG STANDARD HCO3; Value: 24.8; Range: 22.0-26.0; Units: MEQ/L; Status: F Test: ABG O2 SATURATION; Value: 97.4; Range: 95.0-99.0; Units: %; Status: F Lab Order: MAGNESIUM LEVEL; SPEC'M 04/20/16 20:00 Test: MAGNESIUM LEVEL; Value: 2.0; Range: 1.8-2.4; Units: MG/DL; Status: F Lab Order: PHOSPHOROUS LEVEL; SPEC'M 04/20/16 20:00 Test: PHOSPHORUS LEVEL; Value: 3.2; Range: 2.5-4.9; Units: MG/DL; Status: F Radiology Order: Chest, 1 View Test: Chest, 1 View REASON FOR EXAMINATION: Chest Pain; Clinical: Chest pain .; ; Comparison: 03/30/2016 .; ; Findings:; The mediastinum and cardiac silhouette are stable and within normal limits for; portable technique. Double-lumen central venous catheter. The lung ramirez; demonstrate chronic changes without obvious acute consolidation, effusion, or; pneumothorax. Skeletal structures are intact.; ; Impression:; Chronic changes. No obvious focal consolidation effusion, or pneumothorax.; ; ; Signed by; Johnny Berrios MD 04/20/2016 10:01 A; Outcome: 14:20 Decision to Hospitalize by Provider. fg 22:48 Discharge Assessment: pt critical on departure of ED Dr Garret snider and in mar department. The following High Risk Discharge criteria are identified: None. Admitted to ICU accompanied by nurse, accompanied by tech, via stretcher, on monitor, with chart. critical. No special radiology studies were completed. Property :Personal belongings accompany Pt. 22:50 Condition: see [facility] for all other information. mar 22:52 Patient left the ED. mar Signatures: Dispatcher [employer] EDMS Leonela Mckeon, RN RN Aramis Sainz RN RN Charity Perez RN RN srm Newman, Jazzmine Carbone, RN CECILIO Valdes, Jazmynebeth, Yard Inspector Unit ml3 Graeme Hillman, RN RN ml6 Nayeli Quiñonez, DOG BREEDER DOG BREEDER ar3 Israel Gay dem1 Jennifer Stephenson,RN RN js13 Tawana Crews MD MD fg Shelton, Caleb,RT RT cs15 Jared, Hendricks ys2 Priya Nguyen, Reg Reg ks16 Teetee, Beatriz rao Corrections: (The following items were deleted from the chart) 09:53 09:47 47.45 kg Reported; ml6 dem1 Chart Complete MTDD
--- NOTE | 2016-04-22 23:53 | EDDOCDS ---
Physician Documentation [facility] Name: Davin Snyder Age: 75 yrs Sex: Male : 1940 Arrival Date: 04/20/2016 Time: 09:24 Bed Admit Hold Private MD: Disposition: 04/20/16 14:20 Hospitalization ordered by Ruthie Coleman for Inpatient Admission. Preliminary diagnosis is Shortness of breath. - Bed requested for M ICU. - Status is Inpatient Admission. mar - Condition is Stable. - Problem is new. - Symptoms have improved. Historical: - Allergies: no known allergies; - Home Meds: 1. Oxygen 3LNC Continuous (Last dose: 04/20/2016 09:38) 2. clonidine HCl 0.1 mg Oral tab 1 tab 2 times per day (Last dose: 04/19/2016) 3. albuterol sulfate 2.5 mg /3 mL (0.083 %) Inhl nebu 3 mL 3 times per day (Last dose: 04/19/2016 05:00) 4. ferrous sulfate 325 mg (65 mg iron) Oral tab twice a day (Last dose: 04/20/2016 05:00) 5. acetaminophen-codeine 300-60 mg Oral tab 1 tab as needed (Last dose: 04/20/2016 05:00) 6. aspirin 81 mg Oral TbEC 1 tab once daily (Last dose: 04/20/2016 05:00) 7. colchicine 0.6 mg Oral tab as needed (Last dose: 04/20/2016 05:00) 8. Complete 50+ oral 1 tab daily (Last dose: 04/20/2016 05:00) 9. furosemide 40 mg Oral tab 1 tab Mon, Wed, Fri (Last dose: 04/19/2016 05:00) 10. glipizide 10 mg Oral tab three times a day (Last dose: 04/20/2016 05:00) 11. hydralazine 25 mg Oral tab 1 tab 2 times per day (Last dose: 04/19/2016 05:00) 12. hydrochlorothiazide 12.5 mg Oral cap 1 cap once daily (Last dose: 04/19/2016 05:00) 13. hydroxyzine pamoate 50 mg Oral cap 1 cap nightly (Last dose: 04/20/2016 05:00) 14. labetalol 200 mg Oral tab 1 tab 2 times per day (Last dose: 04/20/2016 05:00) 15. Lantus 100 unit/mL Sub-Q soln 36 unit daily (Last dose: 04/19/2016 20:00) 16. losartan 50 mg oral tab 1 tab once daily (Last dose: 04/19/2016 05:00) 17. nifedipine 60 mg Oral tr24 2 tabs once daily (Last dose: 04/19/2016 05:00) 18. Novolog 100 unit/mL Sub-Q soln 12 unit three times a day (Last dose: 04/19/2016 05:00) 19. omeprazole 20 mg Oral cpDR 1 cap once daily (Last dose: 04/19/2016 05:00) 20. Proventil 90 mcg/actuation Inhl aero 2 puffs as needed (Last dose: 04/19/2016 05:00) 21. simvastatin 40 mg Oral tab 0.5 tab nightly (Last dose: 04/19/2016 20:00) 22. Spiriva with HandiHaler 18 mcg Inhl CpDv 1 cap once daily (Last dose: 04/19/2016 05:00) 23. Symbicort 160-4.5 mcg/actuation inhalation HFAA 2 puffs 2 times per day (Last dose: 04/19/2016 05:00) 24. terazosin 5 mg oral cap nightly (Last dose: 04/19/2016 20:00) 25. Tylenol Arthritis Pain 650 mg oral TbER 1 tabs twice a day (Last dose: 04/19/2016 05:00) 26. Vitamin C 500 mg Oral tab 500 mg daily (Last dose: 04/19/2016 05:00) 27. Vitamin D3 1,000 unit oral tab daily (Last dose: 04/19/2016 05:00) - PMHx: CHF; COPD; Diabetes - IDDM: controlled; GERD; Gout; High Cholesterol; Hypertension; Renal Failure with Dialysis; oxygen dependent; MN; BPH; PE; Sleep Apnea w/o CPAP; - PSHx: Colon Resection; Appendectomy; Cholecystectomy; bilateral knee replacements; - Family history: Not pertinent. - Social history: Smoking status: Patient states former smoker of tobacco. No barriers to communication noted, Speaks appropriately for age. - : The pt / caregiver states he / she is not on anticoagulants. Home medication list is obtained from the facility [facility], Home medication list is obtained from the facility [facility]. - Exposure Risk Screening:: None identified. None identified. Vital Signs: 04/20 09:52 BP 152 / 70; Pulse 82; Resp 24; Temp 97.1(O); Pulse Ox 95% on 3 lpm NC; Weight 105.2 kg dem1 / 231.93 lbs (M); Height 6 ft. 1 in. (185.42 cm); 10:14 BP 138 / 65 (auto/); js13 10:14 Pulse 78 MON; Resp 18; Pulse Ox 94% on 3 lpm NC; js13 10:29 BP 146 / 60 (auto/); js13 10:29 Pulse 76 MON; Resp 18; Pulse Ox 95% on 3 lpm NC; js13 10:44 BP 161 / 72 (auto/); js13 10:44 Pulse 74 MON; Resp 18; Pulse Ox 94% on 3 lpm NC; js13 10:59 BP 161 / 73 (auto/); js13 10:59 Pulse 74 MON; Resp 16; Pulse Ox 96% on 3 lpm NC; js13 11:14 BP 155 / 72 (auto/); js13 11:14 Pulse 74 MON; Resp 16; Pulse Ox 97% on 3 lpm NC; js13 11:29 BP 163 / 75 (auto/); js13 11:29 Pulse 72 MON; Resp 18; Pulse Ox 98% on 3 lpm NC; js13 11:44 BP 164 / 75 (auto/); js13 11:44 Pulse 74 MON; Resp 18; Pulse Ox 97% on 3 lpm NC; js13 11:59 BP 166 / 66 (auto/); js13 11:59 Pulse 74 MON; Resp 18; Pulse Ox 97% on 3 lpm NC; js13 12:14 BP 166 / 76 (auto/); js13 12:14 Pulse 76 MON; Resp 18; Pulse Ox 97% on 3 lpm NC; js13 12:29 BP 163 / 74 (auto/); js13 12:29 Pulse 76 MON; Resp 18; Pulse Ox 96% on 3 lpm NC; js13 12:44 BP 170 / 74 (auto/); js13 12:44 Pulse 74 MON; Resp 18; Pulse Ox 95% on 3 lpm NC; js13 12:59 BP 171 / 77 (auto/); js13 12:59 Pulse 76 MON; Resp 18; Temp 97.3(O); Pulse Ox 94% on 3 lpm NC; js13 13:14 BP 171 / 77 (auto/); bcj 13:14 Pulse 74 MON; Resp 18; Pulse Ox 94% on 3 lpm NC; bcj 13:29 BP 168 / 76 (auto/); bcj 13:29 Pulse 74 MON; Resp 18; Pulse Ox 94% on 3 lpm NC; bcj 13:44 BP 176 / 71 (auto/); bcj 13:44 Pulse 80 MON; Resp 18; Pulse Ox 94% on 3 lpm NC; bcj 13:59 BP 179 / 84 (auto/); bcj 13:59 Pulse 80 MON; Resp 18; Pulse Ox 94% on 3 lpm NC; bcj 14:14 BP 186 / 79 (auto/); bcj 14:14 Pulse 88 MON; Resp 18; Pulse Ox 93% on 3 lpm NC; bcj 14:29 BP 154 / 72 (auto/); bcj 14:29 Pulse 82 MON; Resp 18; Temp 97.2(O); Pulse Ox 94% 3 lpm ; bcj 09:52 Body Mass Index 30.60 (105.20 kg, 185.42 cm) dem1 MDM: 09:29 ECG WITH READING ER PHYS+CARDIAG ordered. EDMS 09:41 -Blood Culture (Adults Only), peripheral from different site, or from device/port/PICC fg etc. if present ordered. 09:41 Medical Surgical Tech/Pulse Ox/q 15 min VS ordered. fg 09:41 IV Saline Lock ordered. fg 09:41 Oxygen at 4L/Min NC or Home dosage ordered. fg 09:41 Rhythm Strip to chart ordered. fg 09:42 -Arterial Blood Gas Ordered. EDMS 09:42 B-Type Natiuretic Peptide Ordered. EDMS 09:42 Basic Metabolic Profile Ordered. EDMS 09:42 CBC with Diff Ordered. EDMS 09:42 Cardiac Injury Profile Ordered. EDMS 09:42 Troponin Ordered. EDMS 09:43 Chest, 1 View Ordered. EDMS 09:48 -Blood Culture (Adults Only), peripheral from different site, or from device/port/PICC ar3 etc. if present complete. 09:50 BLOOD CULTURES Ordered. EDMS 09:51 [facility] Payment Agreement was scanned into [employer] and attached to record. [email or web address] 09:51 Financial registration complete. [email or web address] 13:26 Cardiac Marker Panel Ordered. EDMS 13:26 Troponin Ordered. EDMS 14:06 Call Respiratory ordered. fg 14:06 LORazepam 0.5 mg IVP once ordered. fg 14:07 BIPAP INPATIENT+RESP-VENT ordered. EDMS 14:09 Call Respiratory complete. ar3 14:25 Misc. Nursing Order ordered. fg 14:39 Admission / Observation Status ordered. EDMS 14:39 CONSISTENT CARBOHYDRATES ordered. EDMS 15:15 SPUTUM CULTURE AND GRAM STAIN Ordered. EDMS 15:15 RESPIRATORY PANEL Ordered. EDMS 18:23 T-Sheet-- Draft Copy was scanned into [employer] and attached to record. klr 18:49 CARDIAC MARKER PANEL Ordered. EDMS 19:31 HEMOGLOBIN A1C Ordered. EDMS 19:31 COMPLETE BLOOD COUNT Ordered. EDMS 19:31 BASIC METABOLIC PROFILE Ordered. EDMS 21:50 ELECTROCARDIOGRAM ADULT ordered. EDMS 21:57 ARTERIAL BLOOD GAS Ordered. EDMS 22:00 BLOOD CULTURES Ordered. EDMS 22:02 PORTABLE CHEST X-RAY Ordered. EDMS 22:16 BIPAP INPATIENT ordered. EDMS 22:22 CPAP INPATIENT ordered. EDMS 22:28 MAGNESIUM LEVEL Ordered. EDMS 22:29 PHOSPHOROUS LEVEL Ordered. EDMS Administered Medications: 14:17 Drug: LORazepam 0.5 mg [lorazepam 2 mg/mL injection solution (0.25 mL)] Route: IVP; js13 Site: left antecubital; 14:33 Follow up: Response: Anxiety is improved js13 Signatures: Dispatcher [employer] EDMS Jazzmine Taylor RN RN jan Lopresti, Mary-Elizabeth, Project Management Manager Unit ml3 Graeme Hillman RN RN ml6 Nayeli Quiñonez, LICENSED OPTICAL DISPENSER LICENSED OPTICAL DISPENSER ar3 Jennifer StephensonRN RN js13 Tawana Crews MD MD fg Sorenson, Kimberly, Reg Reg [email or web address] Beatriz Kingsley The chart was reviewed and I authenticate all verbal orders and agree with the evaluation and treatment provided.Corrections: (The following items were deleted from the chart) 22:28 22:26 MAGNESIUM LEVEL ordered. EDMS EDMS 22:28 22:26 PHOSPHOROUS LEVEL ordered. EDMS EDMS Attachments: 09:51 [facility] Payment Agreement [email or web address] 18:23 T-Sheet-- Draft Copy klr Chart Complete MTDD
[2016-04-23] MEDS: IPRATROPIUM 0.5MG/ALBUTEROL 2.5MG INH SOL UD 3ML (DUONEB)(J7620) NEB SCH ×5 (01:01→20:00)
[2016-04-23] MEDS: ALBUTEROL SULFATE 2.5 MG/0.5 ML INH NEB SOLN NEB PRN ×4 (03:53→17:10)
[2016-04-23 04:00] VITALS: BP 162/70
[2016-04-23 05:34] LABS: MEAN CORPUSCULAR HEMOGLOBIN 28.6 pg (27.0-33.0); MEAN CORPUSCULAR HGB CONC 32.9 g/dl (32.0-36.5); MEAN CORPUSCULAR VOLUME 86.9 fl (80.0-96.0); RED CELL DISTRIBUTION WIDTH 16.2 % (11.5-14.5)
[2016-04-23] MEDS: LORazepam 0.5 MG TAB PO PRN ×3 (05:35→17:08)
[2016-04-23] MEDS: SLF 3 ML SYR IV SCH ×3 (05:36→21:24)
[2016-04-23] MEDS: HEPARIN SOD (PORCINE) 5000 UNITS/ML VIAL SQ SCH (05:36)
[2016-04-23 05:46] LABS: CREATININE FOR GFR 2.06 MG/DL (0.70-1.30); GLOMERULAR FILTRATION RATE 33.5 (>42); POTASSIUM SERUM 4.1 MEQ/L (3.5-5.1)
[2016-04-23] MEDS: ISOSORBIDE DIN. (ISORDIL) 20 MG TAB PO SCH ×3 (06:01→16:44)
[2016-04-23 07:40] VITALS: BP 150/60
[2016-04-23] MEDS: TIOTROPIUM INHALER/CAPSULE (SPIRIVA) INH SCH (08:00)
[2016-04-23] MEDS: SYMBICORT 160/4.5MCG INHALER 6GM INH SCH ×2 (09:00→20:20)
[2016-04-23] MEDS: HumaLOG INSULIN (NovoLOG) PER UNIT SC SCH ×4 (09:18→21:30)
[2016-04-23] MEDS: MIRALAX *UNIT DOSE* 17GM PACKET PO SCH (09:19)
[2016-04-23] MEDS: PANTOPRAZOLE 40MG TAB (PROTONIX) PO SCH (09:19)
[2016-04-23] MEDS: ESCITALOPRAM OXALATE 10 MG TAB (LEXAPRO) PO SCH (09:20)
[2016-04-23] MEDS: ASPIRIN 81 MG ENTERIC TAB PO SCH (09:20)
[2016-04-23] MEDS: cloNIDine 0.1 MG TAB PO SCH ×3 (09:20→21:23)
[2016-04-23] MEDS: SENOKOT S TAB PO SCH ×2 (09:20→21:22)
[2016-04-23] MEDS: LABETALOL 100 MG TAB PO SCH ×2 (09:20→21:21)
[2016-04-23] MEDS: FERROUS SULFATE 325MG TAB PO SCH (09:21)
[2016-04-23] MEDS: VITAMIN D 1,000 INTERNATIONAL UNITS TABLET PO SCH (09:21)
[2016-04-23] MEDS: MULTIVITAMINS/MINERALS THERAP 1 TAB PO SCH (09:21)
[2016-04-23] MEDS: **hydrALAZINE** 50 MG TAB PO SCH ×3 (09:21→21:22)
[2016-04-23] MEDS ORDERED: ISOVUE-370 76% 100ML VIAL (Q9967) As Ordered ONE (10:12)
--- NOTE | 2016-04-23 11:07 | REP ---
CT of the chest without IV contrast, CT pulmonary angiography: Comparison is 10/11/2015. There are no emboli in the pulmonary trunk or in the central pulmonary arteries. There are tiny filling defects in the distal pulmonary arteries to the posterior basilar segments of the lower lobes bilaterally. There are similar filling defects on the prior study. These small filling defects are eccentric and are compatible with chronic small pulmonary emboli . No other emboli are identified in the lobe or segment branches bilaterally. There is a small left pleural effusion as an interval change. Dependent atelectasis is noted in the posterior lung ramirez. There are no masses or nodules. There appears to be focal pleural calcification at the left lateral margin of the superior mediastinum, unchanged. No other pleural calcification is identified. The thoracic aorta is unremarkable except for calcified atheroma. Cardiac size is normal. There is no pericardial effusion. The visualized upper abdominal contents are suggestive of a small volume of ascites adjacent to the spleen but are otherwise unremarkable. Impression: There are tiny probable chronic pulmonary emboli in the peripheral pulmonary arteries to the posterior basilar segments of the lower lobes as described. Bibasilar atelectatic changes, unchanged. Small new left pleural effusion. Probable small volume of ascites adjacent to the spleen. Signed by Jhony Bess MD 04/23/2016 10:59 A
--- NOTE | 2016-04-23 11:11 | IPN ---
DATE: 04/22/2016 SUBJECTIVE: Patient was seen and examined at the bedside today in the morning during hemodialysis. Patient reported his shortness of breath is getting better. He was tolerating the hemodialysis procedure well. I asked the dialysis nurse to turn off the ultrafiltration during hemodialysis today because patient still looked dry and dehydrated. REVIEW OF SYSTEMS: Patient denies any fever, chills, rigors, headache, nausea, vomiting, or chest pain. He still reports shortness of breath, but he reports it is getting better today. He denies any pain in abdomen, constipation, diarrhea, nausea, or vomiting. Rest of review of systems is negative. OBJECTIVE: VITAL SIGNS: Temperature 96.2 degrees Fahrenheit, blood pressure 133/64, pulse 80, respiratory rate 22, saturating 97% on nasal cannula at three liters per minute. Intake and output: Urine output is 175 mL yesterday, there is no urine output recorded today, and we are not planning to remove any fluid with hemodialysis. Weight in the bed scale is 102.5 kg. PHYSICAL EXAMINATION: GENERAL: Patient is awake, alert, oriented times three, laying in the bed in no apparent distress, getting hemodialysis done. HEAD and NECK EXAM: Extraocular muscles intact, pupils equally round and reactive to light. Mucous membranes are dry. Neck is supple, there is no jugular venous distention (JVD). Patient has a right internal jugular (IJ) tunneled hemodialysis catheter. CARDIOVASCULAR: S1, S2, regular rate, no murmur, rub, or gallop. RESPIRATORY: Bilateral equal air entry, patient has mild expiratory rhonchi at the bases. ABDOMEN: Soft, positive bowel sounds, nontender, no ascites, no organomegaly. EXTREMITIES: No clubbing or cyanosis, no edema. CENTRAL NERVOUS SYSTEM (RELIEF OPERATOR): No focal neurological deficit, power is 5/5 in all extremities. SKIN: No rashes or ulcers, skin is very dry and he is dehydrated at this time. LABORATORY REVIEW: CBC shows WBC 10, hemoglobin 9.7, platelets 316. BMP shows sodium 136, potassium 5, chloride 101, bicarbonate 24, BUN 40, creatinine 3.3, calcium 8.8. Microbiology: Sputum culture is growing Staphylococcus aureus and yeast-like organisms. IMAGING: Repeat chest xray done today shows stable cardiomegaly, chronic interstitial changes, no acute cardiopulmonary process. CURRENT MEDICATIONS: Patient's medications were all reviewed by me. There is no change in the medications at this time. He is going to get a dose of vancomycin 1 gram after hemodialysis today. He continues to be on DuoNebs around the clock every 6 hours and Solu-Medrol every 12 hours. ASSESSMENT: 75-year-old male with past medical history of end-stage renal disease recently started on hemodialysis, admitted at this time because of acute respiratory distress. He was found to have respiratory syncytial virus on initial labs and now sputum is growing Staphylococcus and yeast. PLAN: 1. Acute chronic obstructive pulmonary disease (COPD) exacerbation secondary to respiratory syncytial virus. Patient is getting nebulizations every 6 hours. Continue Solu-Medrol 60 mg intravenous (IV) every 12 hours. His sputum also has heavy growth of Staphylococcus aureus. I have ordered a dose of vancomycin 1 gram IV after hemodialysis and he continues to be on IV azithromycin as well. Sensitivities are still pending. 2. End-stage renal disease on hemodialysis. Patient's regular dialysis days are Friday, Friday, Friday. He is being dialyzed today for clearance. I am not going to remove any fluid because patient is clinically dry. 3. Hypertension. Patient's blood pressure is acceptable at this time. Continue current dose of antihypertensive regimen including clonidine 0.1 mg by mouth three times a day, hydralazine 100 mg by mouth three times a day, isosorbide 20 mg by mouth three times a day, labetalol 300 mg by mouth twice a day, and terazosin 5 mg by mouth nightly. 4. History of diastolic congestive heart failure. Patient is clinically not overloaded. He already got the ultrafiltration and 3.5 liters of fluid was removed over the weekend. I am not going to remove any fluid during hemodialysis today. 5. Anemia in end-stage renal disease. Patient's hemoglobin is 9.7 today. Patient will get a dose of Aranesp 200 mcg IV with hemodialysis.
[2016-04-23] MEDS: SODIUM CHLORIDE HYPERTONIC 3% 15ML NEB SOL INH SCH ×3 (12:00→20:00)
[2016-04-23 12:01] VITALS: BP 186/90
[2016-04-23] MEDS: guaiFENesin DM LIQ 10ML UD PO PRN (12:02)
[2016-04-23] MEDS: guaiFENesin ER 600 MG TAB PO SCH ×2 (12:03→21:23)
[2016-04-23] MEDS: methylPREDNISolone INJ 125 MG/2 ML VIAL (J2930) IV SCH (12:03)
--- NOTE | 2016-04-23 13:33 | IPNPDOC ---
Text Note Date of Service The patient was seen on 04/23/16. NOTE Subjective: Patient states shortness of breath is slightly worse today. Has productive sputum however has trouble bringing up sputum. Denies chest pain/ palpitations. Objective: Vitals:(see below) General: No acute distress, laying comfortably in bed. HEENT: Moist mucous membranes. Neck: No JVD or lymphadenopathy Cardiac: RRR, No murmurs. Right HD catheter - no eythema/warmth/tenderness. Pulm: B/l wheezing/rhonchi. Coarse crackles b/l bases. Abd: NT/ND + BS Ext: Trace edema BLE Labs (see below) Images: CTA Chest 04/23/16 There are no emboli in the pulmonary trunk or in the central pulmonary arteries. There are tiny filling defects in the distal pulmonary arteries to the posterior basilar segments of the lower lobes bilaterally. There are similar filling defects on the prior study. These small filling defects are eccentric and are compatible with chronic small pulmonary emboli . No other emboli are identified in the lobe or segment branches bilaterally. There is a small left pleural effusion as an interval change. Dependent atelectasis is noted in the posterior lung ramirez. There are no masses or nodules. There appears to be focal pleural calcification at the left lateral margin of the superior mediastinum, unchanged. No other pleural calcification is identified. The thoracic aorta is unremarkable except for calcified atheroma. Cardiac size is normal. There is no pericardial effusion. The visualized upper abdominal contents are suggestive of a small volume of ascites adjacent to the spleen but are otherwise unremarkable. Impression: There are tiny probable chronic pulmonary emboli in the peripheral pulmonary arteries to the posterior basilar segments of the lower lobes as described. Bibasilar atelectatic changes, unchanged. Small new left pleural effusion. Probable small volume of ascites adjacent to the spleen. Assessment/Plan 1. Acute on Chronic Hypoxic Resp Failure - patient initially required BiPAP on presentation. Was on Ventimask however now is down to 3-4 L nasal cannula. Mucinex and Robitussin been added for mucolytic. Patient is on vancomycin for MSSA sputum. Nebulizers. Steroids. Symptomatically worse today; will continue close observation in PCU. 2. Chronic PE - will start pt on Eliquis today. Hb stable. Remote h/o GI bleed; no recent. Cont to monitor Hb. Echocardiogram pending. 3. + RSV - supportive care, steroids 4. ESRD on HD - will be dialyzed today. 5. Acute COPD exacerbation - on 3L NC at baseline. Nebs, Steroids. 6. Gout- cont home meds 7. HTN - cont home meds 8. BPH - cont home meds 9. DM - cont levemir, SSI\ 10. ANKITA CPAP DVT prophy: Eliquis VS,Fishbone, I+O VS, Fishbone, I+O Laboratory Tests 04/23/16 05:15 Calcium Level 8.0 L, Red Blood Count 3.38 L, Mean Corpuscular Volume 86.9, Mean Corpuscular Hemoglobin 28.6, Mean Corpuscular Hemoglobin Concent 32.9, Red Cell Distribution Width 16.2 H Vital Signs Date Time Temp Pulse Resp B/P Pulse Ox O2 Delivery O2 Flow Rate FiO2 04/23/16 12:06 Nasal Cannula 4.0 04/23/16 12:02 176/90 04/23/16 12:00 96.8 98 24 90 04/21/16 06:00 40 I&O- Last 24 Hours up to 6 AM 04/23/16 05:59 Intake Total 900 ml Output Total 0 ml Balance 900 ml PAMELA COX MD Apr 23, 2016 13:33
[2016-04-23 16:30] VITALS: BP 180/88
[2016-04-23] MEDS: FLUCONAZOLE 100 MG TAB PO SCH (16:43)
[2016-04-23] MEDS: CHECK TO SEE IF PATIENT IS RECEIVING DIALYSIS TODAY AND REFER TO THE VANCOMYCIN ORDER XX SCH (16:44)
[2016-04-23] MEDS: VANCOMYCIN HCL 1,000 MG, VIAL MATE ADAPTER 1 EACH in D5W 250 ML IV SCH (16:45)
[2016-04-23] MEDS: AZITHROMYCIN INJ 500 MG, VIAL MATE ADAPTER 1 EACH in D5W 250 ML IV SCH (17:53)
[2016-04-23 20:00] VITALS: BP 160/80
[2016-04-23] MEDS: CLOPIDOGREL 75 MG TAB PO SCH (21:22)
[2016-04-23] MEDS: SIMVASTATIN 20 MG TAB PO SCH (21:22)
[2016-04-23] MEDS: APIXABAN 5 MG TAB (ELIQUIS) PO SCH (21:22)
[2016-04-23] MEDS: LEVEMIR (INSULIN DETEMIR) 1 UNITS/0.01ML SC SCH (21:23)
[2016-04-23] MEDS: TERAZOSIN 5 MG CAP PO SCH (21:23)
[2016-04-23 22:30] VITALS: BP 150/75
[2016-04-24] VITALS: BP 140/68
[2016-04-24] MEDS: IPRATROPIUM 0.5MG/ALBUTEROL 2.5MG INH SOL UD 3ML (DUONEB)(J7620) NEB SCH ×5 (00:04→21:41)
[2016-04-24] MEDS: SODIUM CHLORIDE HYPERTONIC 3% 15ML NEB SOL INH SCH ×6 (00:04→21:42)
[2016-04-24] MEDS: LORazepam 0.5 MG TAB PO PRN ×4 (00:05→21:53)
[2016-04-24] MEDS: methylPREDNISolone INJ 125 MG/2 ML VIAL (J2930) IV SCH (00:05)
--- NOTE | 2016-04-24 00:29 | IPN ---
DATE: 04/23/2016 SUBJECTIVE: The patient was seen and examined at the bedside today in the morning. He was in respiratory distress, tachypneic, actively having wheezing. Last 24-hour events were noted. The patient was in respiratory distress all night. He required every 2 hour nebulization. The patient got hemodialysis done yesterday but no ultrafiltration was done because clinically he looked dry. The patient was sent to CAT scan emergently and CAT scan of the chest with intravenous (IV) contrast was done, which showed chronic pulmonary emboli in the peripheral pulmonary arteries and bibasilar atelectasis. There was a small new left pleural effusion. There was no consolidation, and no signs of fluid overload on the CAT scan. REVIEW OF SYSTEMS: The patient denies any fever, chills, rigors, headache, nausea, vomiting. He reported shortness of breath, wheezing and tachypnea. The rest of the review of systems is negative. OBJECTIVE: VITAL SIGNS: This morning, his temperature was 95.5 degrees Fahrenheit. Blood pressure was 150/60, pulse was 76, respiratory rate was 22, saturating 94% on nasal cannula. INTAKE/OUTPUT: The output is not recorded. Weight on the bed scale is 104 kg. PHYSICAL EXAMINATION: GENERAL: The patient is awake, alert, oriented times three, laying in bed in moderate respiratory distress, currently on nasal cannula. HEAD AND NECK EXAM: Extraocular muscles intact. Pupils equally round and reactive to light. Mucous membranes are dry. Neck was supple. There was no jugular venous distention (JVD). The patient has a right internal jugular (IJ) tunneled hemodialysis catheter. CARDIOVASCULAR: S1, S2, regular rate. No murmur, rub or gallop. RESPIRATORY: Decreased air entry bilaterally at the bases and bilateral expiratory rhonchi. ABDOMEN: Abdomen is soft. Positive bowel sounds. Nontender. No ascites. No organomegaly. EXTREMITIES: No clubbing or cyanosis. No edema. CENTRAL NERVOUS SYSTEM: No focal neurological deficit. Power is 5/5 in all extremities. SKIN: No rashes or ulcers. Skin is dry. LAB REVIEW: CBC showed a WBC of 12, hemoglobin 9.6, platelets are 314. BMP shows sodium 134, potassium 4.1, chloride 95, bicarbonate 29, BUN 25, creatinine 2.06, calcium is 8, C-reactive protein was 2.7. Microbiology: Sputum culture had heavy growth of Staphylococcus aureus and a few yeast-like organisms. CURRENT MEDICATIONS: The patient continues to be on IV azithromycin, IV vancomycin 1 gram IV every hemodialysis. He has been started on Eliquis 5 mg by mouth twice a day. He has been restarted on Symbicort inhaler and Spiriva inhaler daily as well. He has been started on DuoNebs every 4 hours around the clock as well. ASSESSMENT: A 75-year-old male with a past medical history of end-stage renal disease, recently started on hemodialysis, admitted at this time because of acute respiratory distress. He was found to have respiratory syncytial virus and sputum is growing Staphylococcus aureus and yeast at this time. PLAN: 1. Acute respiratory distress secondary to viral infection with super imposed bacterial infection. The patient is currently on Solu-Medrol 60 mg IV every 12 hours. He is also on rhuzlq-brf-fkkin nebulizations. He has been started on vancomycin IV with hemodialysis and because of the yeast, he has been started on fluconazole as well. Because of the possibility of fluid overload and the patient got contrast as well with the CAT scan, the patient will be dialyzed for 3 hours today. 2. End-stage renal disease, on hemodialysis. The patient's regular hemodialysis days are Friday, Friday, Friday but because of the shortness of breath and IV contrast, 3 hours of hemodialysis will be done today. The patient will be evaluated tomorrow for any need of hemodialysis tomorrow morning. 3. Hypertension. Continue current dose of antihypertensive regimen. Blood pressure is acceptable at this time. Hemodialysis and ultrafiltration would also help lower the blood pressure. 4. History of diastolic congestive heart failure. The patient would get fluid removal with hemodialysis. Volume status is well optimized at this time. 5. Anemia in end-stage renal disease. The patient's hemoglobin is 9.6. Continue current dose of Aranesp 200 mcg IV with hemodialysis once a week. 6. Chronic pulmonary emboli. The patient has been started on Eliquis 5 mg by mouth twice a day. Plan of care was discussed with the hospitalist team, Dr. Larry Freedman. PARMINDER
[2016-04-24 04:00] VITALS: BP 162/74
[2016-04-24] MEDS: FLUCONAZOLE 100 MG TAB PO SCH (05:56)
[2016-04-24] MEDS: FERROUS SULFATE 325MG TAB PO SCH (05:57)
[2016-04-24] MEDS: ESCITALOPRAM OXALATE 10 MG TAB (LEXAPRO) PO SCH (05:57)
[2016-04-24] MEDS: PANTOPRAZOLE 40MG TAB (PROTONIX) PO SCH (05:57)
[2016-04-24] MEDS: SENOKOT S TAB PO SCH ×2 (05:57→21:53)
[2016-04-24] MEDS: APIXABAN 5 MG TAB (ELIQUIS) PO SCH ×2 (05:57→21:53)
[2016-04-24] MEDS: VITAMIN D 1,000 INTERNATIONAL UNITS TABLET PO SCH (05:57)
[2016-04-24] MEDS: MULTIVITAMINS/MINERALS THERAP 1 TAB PO SCH (05:57)
[2016-04-24] MEDS: SLF 3 ML SYR IV SCH ×3 (05:58→21:56)
[2016-04-24] MEDS: guaiFENesin ER 600 MG TAB PO SCH ×2 (05:58→21:53)
[2016-04-24] MEDS: ASPIRIN 81 MG ENTERIC TAB PO SCH (05:58)
[2016-04-24 06:13] LABS: MEAN CORPUSCULAR HEMOGLOBIN 27.4 pg (27.0-33.0); MEAN CORPUSCULAR HGB CONC 31.2 g/dl (32.0-36.5); MEAN CORPUSCULAR VOLUME 87.9 fl (80.0-96.0); RED CELL DISTRIBUTION WIDTH 16.3 % (11.5-14.5)
[2016-04-24 06:38] LABS: CALCIUM LEVEL 8.4 MG/DL (8.8-10.2); CREATININE FOR GFR 1.85 MG/DL (0.70-1.30); GLOMERULAR FILTRATION RATE 37.9 (>42); POTASSIUM SERUM 4.4 MEQ/L (3.5-5.1)
[2016-04-24] MEDS: TIOTROPIUM INHALER/CAPSULE (SPIRIVA) INH SCH (07:47)
[2016-04-24] MEDS: SYMBICORT 160/4.5MCG INHALER 6GM INH SCH ×2 (07:48→21:37)
[2016-04-24 08:00] VITALS: BP 166/80
[2016-04-24] MEDS: MIRALAX *UNIT DOSE* 17GM PACKET PO SCH (08:44)
[2016-04-24] MEDS: HumaLOG INSULIN (NovoLOG) PER UNIT SC SCH ×4 (08:45→21:00)
[2016-04-24] MEDS: ISOSORBIDE DIN. (ISORDIL) 20 MG TAB PO SCH ×3 (08:45→15:50)
[2016-04-24] MEDS: **hydrALAZINE** 50 MG TAB PO SCH ×3 (08:46→21:54)
[2016-04-24] MEDS: LABETALOL 100 MG TAB PO SCH ×2 (08:46→21:52)
[2016-04-24] MEDS: cloNIDine 0.1 MG TAB PO SCH ×3 (08:46→21:53)
[2016-04-24 11:40] VITALS: BP 151/71
[2016-04-24] MEDS: methylPREDNISolone INJ 40 MG/1 ML VIAL (J2920) IV SCH (11:54)
[2016-04-24] MEDS: CHECK TO SEE IF PATIENT IS RECEIVING DIALYSIS TODAY AND REFER TO THE VANCOMYCIN ORDER XX SCH (14:00)
--- NOTE | 2016-04-24 14:42 | IPNPDOC ---
Text Note Date of Service The patient was seen on 04/24/16. NOTE ubjective: Patient states shortness of breath has improved today. Denies chest pain/palpitations. Objective: Vitals:(see below) General: No acute distress, laying comfortably in bed. HEENT: Moist mucous membranes. Neck: No JVD or lymphadenopathy Cardiac: RRR, No murmurs. Right HD catheter - no eythema/warmth/tenderness. Pulm: B/l wheezing/rhonchi, improved me history. Coarse crackles b/l bases. Abd: NT/ND + BS Ext: Trace edema BLE Labs (see below) Images: CTA Chest 04/23/16 There are no emboli in the pulmonary trunk or in the central pulmonary arteries. There are tiny filling defects in the distal pulmonary arteries to the posterior basilar segments of the lower lobes bilaterally. There are similar filling defects on the prior study. These small filling defects are eccentric and are compatible with chronic small pulmonary emboli . No other emboli are identified in the lobe or segment branches bilaterally. There is a small left pleural effusion as an interval change. Dependent atelectasis is noted in the posterior lung ramirez. There are no masses or nodules. There appears to be focal pleural calcification at the left lateral margin of the superior mediastinum, unchanged. No other pleural calcification is identified. The thoracic aorta is unremarkable except for calcified atheroma. Cardiac size is normal. There is no pericardial effusion. The visualized upper abdominal contents are suggestive of a small volume of ascites adjacent to the spleen but are otherwise unremarkable. Impression: There are tiny probable chronic pulmonary emboli in the peripheral pulmonary arteries to the posterior basilar segments of the lower lobes as described. Bibasilar atelectatic changes, unchanged. Small new left pleural effusion. Probable small volume of ascites adjacent to the spleen. Assessment/Plan 1. Acute on Chronic Hypoxic Resp Failure - patient initially required BiPAP on presentation. Was on Ventimask however now is down to 3 L nasal cannula, which is his baseline at home. Mucinex and Robitussin been added for mucolytic. Patient is on vancomycin for MSSA sputum. Nebulizers. Steroids. Symptomatically improved today; will continue close observation in PCU. 2. Chronic PE -continue Eliquis. Hb stable. Remote h/o GI bleed; no recent. Cont to monitor Hb. Echocardiogram pending. 3. + RSV - supportive care, steroids 4. ESRD on HD -on a Friday/Friday/Friday schedule. Dialyzed yesterday. Appreciate nephro input. 5. Acute COPD exacerbation - on 3L NC at baseline. Nebs, Steroids. 6. Gout- cont home meds 7. HTN - cont home meds 8. BPH - cont home meds 9. DM - cont levemir, SSI 10. ANKITA CPAP DVT prophy: Eliquis VS,Fishbone, I+O VS, Fishbone, I+O Laboratory Tests 04/24/16 05:41 Calcium Level 8.4 L, Red Blood Count 3.75 L, Mean Corpuscular Volume 87.9, Mean Corpuscular Hemoglobin 27.4, Mean Corpuscular Hemoglobin Concent 31.2 L, Red Cell Distribution Width 16.3 H Vital Signs Date Time Temp Pulse Resp B/P Pulse Ox O2 Delivery O2 Flow Rate FiO2 04/24/16 11:55 151/71 04/24/16 11:40 96.5 52 20 95 Nasal Cannula 3.0 04/21/16 06:00 40 I&O- Last 24 Hours up to 6 AM 04/24/16 06:00 Intake Total 3100 ml Output Total 2400 ml Balance 700 ml PAMELA COX MD Apr 24, 2016 14:42
[2016-04-24 15:41] VITALS: BP 158/78
[2016-04-24] MEDS: ALBUTEROL SULFATE 2.5 MG/0.5 ML INH NEB SOLN NEB PRN (17:14)
[2016-04-24 20:00] VITALS: BP 140/70; PULSE 73
--- NOTE | 2016-04-24 20:37 | IPN ---
DATE: 04/24/2016 SUBJECTIVE: The patient was seen and examined at the bedside today in the morning. He reports much improvement in his shortness of breath and wheezing. He was dialyzed yesterday. He tolerated the hemodialysis and ultrafiltration. He continues to be on nebulizations and intravenous (IV) steroids, and he reports that he was able to sleep last night and required only one set of nebulization at night. REVIEW OF SYSTEMS: The patient denies any fevers, chills, rigors, headache, nausea, vomiting or chest pain. He does report shortness of breath and wheezing, but it is significantly better than before. He denies any nausea, vomiting, pain abdomen, constipation or diarrhea. Rest of review of systems is negative. OBJECTIVE: VITAL SIGNS: Temperature is 96.7 degrees Fahrenheit, blood pressure is 158/78, pulse is 74, respiratory rate 20, saturating 98% on nasal cannula. INTAKE AND OUTPUT: Urine output recorded at 400 mL yesterday. Ultrafiltration with hemodialysis was two liters yesterday. Weight in the bed scale is 99.6 kg. PHYSICAL EXAMINATION: GENERAL: The patient is awake, alert, and oriented times three, lying in bed, currently in no apparent distress wearing nasal cannula. HEAD/NECK: Extraocular muscles intact. Pupils equal, round, and reactive to light. Mucous membranes are moist. Neck is supple. There is no jugular venous distention (JVD). The patient has tunneled right internal jugular hemodialysis catheter. CARDIOVASCULAR: S1, S2. Regular rate. No murmur, rub, or gallop. RESPIRATORY: Decreased air entry at the bases and mild expiratory rhonchi at the bases as well. ABDOMEN: Soft. Positive bowel sounds. Nontender. No ascites. No organomegaly. EXTREMITIES: No clubbing or cyanosis. No edema of the extremities. CENTRAL NERVOUS SYSTEM ([employer]): No focal neurological deficit. Power is 5/5 in all extremities. SKIN: No rashes or ulcers. Skin is dry. LABORATORY DATA: CBC showed WBC of 13, hemoglobin 10.3, platelets are 324. BMP showed sodium 133, potassium 4.4, chloride 96, bicarbonate 30, BUN 23, creatinine 1.85, calcium is 8.4. C-reactive protein is 3.9. CURRENT MEDICATIONS: The patient's current medications were all reviewed by me. He is currently on vancomycin 1 gram IV with hemodialysis. He was started on fluconazole 200 mg by mouth daily, and he was also started on Eliquis 5 mg by mouth twice a day. His Solu-Medrol dose has been decreased to 40 mg IV every 12 hours, and he has been restarted on Spiriva and Symbicort as of yesterday. There is no other change in the medications at this time. ASSESSMENT: A 75-year-old male with past medical history of end-stage renal disease on hemodialysis, admitted this time with respiratory distress. Nephrology service following the patient for management of end-stage renal disease. PLAN: 1. Acute respiratory distress secondary to respiratory syncytial virus infection with bacterial infection. The patient is currently on IV vancomycin, by mouth fluconazole, nebulizations, IV steroids. His symptoms are getting better. Continue [id number] nebulizations for now. I have decreased the frequency to every six hours. 2. End-stage renal disease on hemodialysis. The patient's regular hemodialysis days are Friday, Friday, Friday, but he was dialyzed yesterday because he was in shortness of breath and he also got IV contrast. No urgent need of hemodialysis today. Next hemodialysis session will be done tomorrow. 3. Hypertension. The patient's blood pressures are within the acceptable range at this time. Continue current antihypertensive regimen. 4. History of diastolic congestive heart failure. His volume status is optimized. No signs of fluid overload at this time. Next ultrafiltration will be done tomorrow with hemodialysis. 5. Anemia in end-stage renal disease. The patient's hemoglobin is optimized at this time; it is 10.3. Continue current dose of Aranesp with hemodialysis. 6. Chronic pulmonary emboli seen in the CT scan. The patient has been started on Eliquis 5 mg by mouth twice a day. The plan of care was discussed with the hospitalist team.
[2016-04-24] MEDS: CLOPIDOGREL 75 MG TAB PO SCH (21:53)
[2016-04-24] MEDS: SIMVASTATIN 20 MG TAB PO SCH (21:54)
[2016-04-24] MEDS: TERAZOSIN 5 MG CAP PO SCH (22:00)
[2016-04-24] MEDS: LEVEMIR (INSULIN DETEMIR) 1 UNITS/0.01ML SC SCH (22:02)
[2016-04-25] VITALS (9 sets, daily range): BP systolic 138–180; BP diastolic 58–84; PULSE 57–66
[2016-04-25] MEDS: methylPREDNISolone INJ 40 MG/1 ML VIAL (J2920) IV SCH ×3 (00:47→23:41)
[2016-04-25] MEDS: IPRATROPIUM 0.5MG/ALBUTEROL 2.5MG INH SOL UD 3ML (DUONEB)(J7620) NEB SCH ×4 (01:24→19:52)
[2016-04-25] MEDS: SODIUM CHLORIDE HYPERTONIC 3% 15ML NEB SOL INH SCH ×6 (01:24→19:52)
[2016-04-25] MEDS: LORazepam 0.5 MG TAB PO PRN ×2 (05:21→20:31)
[2016-04-25] MEDS: ALBUTEROL SULFATE 2.5 MG/0.5 ML INH NEB SOLN NEB PRN ×2 (05:33→17:29)
[2016-04-25] MEDS: SLF 3 ML SYR IV SCH ×3 (06:28→20:43)
[2016-04-25] MEDS: ISOSORBIDE DIN. (ISORDIL) 20 MG TAB PO SCH ×3 (06:28→17:03)
[2016-04-25] MEDS: FLUCONAZOLE 100 MG TAB PO SCH (06:29)
[2016-04-25] MEDS: MIRALAX *UNIT DOSE* 17GM PACKET PO SCH (06:30)
[2016-04-25] MEDS: guaiFENesin ER 600 MG TAB PO SCH ×2 (06:30→20:32)
--- NOTE | 2016-04-25 06:30 | ECHO ---
DATE OF PROCEDURE: 04/23/2016 DATE OF : 1940 AGE: 75 REFERRING PROVIDER: Dr. Larry Freedman. PATIENT LOCATION: Room 3230. REASON FOR ECHOCARDIOGRAM: Shortness of breath. 2D MEASUREMENTS: IVS: 1.3 cm LV: 5.3 cm LVPW: 1.3 cm LA: 3.9 cm Aorta: 3.5 cm IVC: 1.7 cm DOPPLER MEASUREMENTS: Peak velocity across the aortic valve: 1.5 m/s Peak velocity across the LVOT: 0.89 m/s Mitral E: 0.79 Mitral A: 0.91 Ratio 0.9 Maximum tricuspid valve velocity: 3.1 m/s 2D COMMENTS: 1. Mildly increased left ventricular wall thickness and normal left ventricular size. Left ventricular systolic function appeared to be normal, estimated at 60% to 65%. 2. Normal left atrium. Normal right atrium and right ventricle. 3. The atrial septum appeared to be normal without evidence of defect or shunt. 4. Normal aortic root. 5. Trace pericardial effusion noted posteriorly, no evidence of cardiac tamponade. 6. Mildly calcified aortic valve with normal leaflet excursion. Mildly calcified mitral annulus with normal anterior mitral valve leaflet motion. Normal tricuspid valve. The pulmonic valve and proximal pulmonary artery branches were not well visualized. 7. The inferior vena cava was normal in size, central venous pressure is probably normal. DOPPLER: It detects mild to moderate mitral regurgitation, as well as mild to moderate tricuspid regurgitation. The calculated pulmonary artery systolic pressure varies between 40 to 50 mmHg. Abnormal relaxation pattern was noted across the mitral valve leaflets as well as the mitral valve annulus consistent with delayed relaxation. IMPRESSION: 1. Normal global left ventricular systolic function with mild concentric left ventricular hypertrophy. There are some features of left ventricular diastolic dysfunction, grade 1. 2. Aortic valve sclerosis without any stenosis or aortic regurgitation. 3. Mitral annulus calcification with mild to moderate mitral regurgitation. 4. Mild to moderate tricuspid regurgitation with moderate pulmonary hypertension. 5. Trace pericardial effusion. 6. This was compared to last echocardiogram report on 03/20/2016, there are no significant changes. The right heart chambers then were reported to be mildly enlarged.
[2016-04-25] MEDS: ASPIRIN 81 MG ENTERIC TAB PO SCH (06:31)
[2016-04-25] MEDS: FERROUS SULFATE 325MG TAB PO SCH (06:31)
[2016-04-25] MEDS: LABETALOL 100 MG TAB PO SCH ×2 (06:31→20:41)
[2016-04-25] MEDS: MULTIVITAMINS/MINERALS THERAP 1 TAB PO SCH (06:31)
[2016-04-25] MEDS: PANTOPRAZOLE 40MG TAB (PROTONIX) PO SCH (06:32)
[2016-04-25] MEDS: ESCITALOPRAM OXALATE 10 MG TAB (LEXAPRO) PO SCH (06:32)
[2016-04-25] MEDS: VITAMIN D 1,000 INTERNATIONAL UNITS TABLET PO SCH (06:32)
[2016-04-25] MEDS: APIXABAN 5 MG TAB (ELIQUIS) PO SCH ×2 (06:32→20:42)
[2016-04-25] MEDS: SENOKOT S TAB PO SCH ×2 (06:32→20:31)
[2016-04-25] MEDS: cloNIDine 0.1 MG TAB PO SCH ×3 (06:33→20:31)
[2016-04-25] MEDS: **hydrALAZINE** 50 MG TAB PO SCH ×3 (06:34→20:32)
[2016-04-25 07:33] LABS: MEAN CORPUSCULAR HEMOGLOBIN 26.7 pg (27.0-33.0); MEAN CORPUSCULAR HGB CONC 30.7 g/dl (32.0-36.5); RED CELL DISTRIBUTION WIDTH 16.9 % (11.5-14.5); WHITE BLOOD COUNT 16.2 K/mm3 (4.0-10.0)
[2016-04-25 07:58] LABS: CALCIUM LEVEL 8.4 MG/DL (8.8-10.2); CREATININE FOR GFR 2.55 MG/DL (0.70-1.30); GLOMERULAR FILTRATION RATE 26.2 (>42); POTASSIUM SERUM 4.5 MEQ/L (3.5-5.1)
[2016-04-25] MEDS: TIOTROPIUM INHALER/CAPSULE (SPIRIVA) INH SCH (08:03)
[2016-04-25] MEDS: SYMBICORT 160/4.5MCG INHALER 6GM INH SCH ×2 (08:04→19:52)
[2016-04-25] MEDS: HumaLOG INSULIN (NovoLOG) PER UNIT SC SCH ×4 (08:23→20:42)
[2016-04-25] MEDS: PIPERACILLIN/TAZOBACTAM SOD 2.25 GM in D5W MINI-BAG PLUS 50 ML IV SCH ×3 (08:54→23:42)
[2016-04-25] MEDS ORDERED: HEPARIN 1,000 UNITS/ML 10ML VIAL (FOR RADIOLOGY& DIALYSIS ONLY) IV ONE (10:00)
--- NOTE | 2016-04-25 15:30 | IPNPDOC ---
Text Note Date of Service The patient was seen on 04/25/16. NOTE Subjective: Pt denies SOB/ chest pain/palpitations. Tolerated HD well. Objective: Vitals:(see below) General: No acute distress, laying comfortably in bed. HEENT: Moist mucous membranes. Neck: No JVD or lymphadenopathy Cardiac: RRR, No murmurs. Right HD catheter - no eythema/warmth/tenderness. Pulm: B/l wheezing/rhonchi, improved me history. Coarse crackles b/l bases. Abd: NT/ND + BS Ext: Trace edema BLE Labs (see below) Images: CTA Chest 04/23/16 There are no emboli in the pulmonary trunk or in the central pulmonary arteries. There are tiny filling defects in the distal pulmonary arteries to the posterior basilar segments of the lower lobes bilaterally. There are similar filling defects on the prior study. These small filling defects are eccentric and are compatible with chronic small pulmonary emboli . No other emboli are identified in the lobe or segment branches bilaterally. There is a small left pleural effusion as an interval change. Dependent atelectasis is noted in the posterior lung ramirez. There are no masses or nodules. There appears to be focal pleural calcification at the left lateral margin of the superior mediastinum, unchanged. No other pleural calcification is identified. The thoracic aorta is unremarkable except for calcified atheroma. Cardiac size is normal. There is no pericardial effusion. The visualized upper abdominal contents are suggestive of a small volume of ascites adjacent to the spleen but are otherwise unremarkable. Impression: There are tiny probable chronic pulmonary emboli in the peripheral pulmonary arteries to the posterior basilar segments of the lower lobes as described. Bibasilar atelectatic changes, unchanged. Small new left pleural effusion. Probable small volume of ascites adjacent to the spleen. Assessment/Plan 1. Acute on Chronic Hypoxic Resp Failure - patient initially required BiPAP on presentation. Was on Ventimask however now is down to 3 L nasal cannula, which is his baseline at home. Mucinex and Robitussin been added for mucolytic. Patient is on vancomycin for MSSA sputum. CRP and WBC elevated, Zosyn has been added. Nebulizers. Steroids. Symptomatically improved today; will continue close observation in PCU. 2. Chronic PE -continue Eliquis. Hb stable. Remote h/o GI bleed; no recent. Cont to monitor Hb. Echocardiogram pending. 3. + RSV - supportive care, steroids 4. ESRD on HD -on a Friday/Friday/Friday schedule. Dialyzed yesterday. Appreciate nephro input. 5. Acute COPD exacerbation - on 3L NC at baseline. Nebs, Steroids. 6. Gout- cont home meds 7. HTN - cont home meds 8. BPH - cont home meds 9. DM - cont levemir, SSI 10. ANKITA CPAP DVT prophy: Eliquis VS,Fishbone, I+O VS, Fishbone, I+O Laboratory Tests 04/25/16 07:15 Calcium Level 8.4 L, Red Blood Count 3.77 L, Mean Corpuscular Volume 87.0, Mean Corpuscular Hemoglobin 26.7 L, Mean Corpuscular Hemoglobin Concent 30.7 L, Red Cell Distribution Width 16.9 H Vital Signs Date Time Temp Pulse Resp B/P Pulse Ox O2 Delivery O2 Flow Rate FiO2 04/25/16 13:14 164/78 04/25/16 12:48 96.0 82 22 93 Nasal Cannula 4.0 04/21/16 06:00 40 I&O- Last 24 Hours up to 6 AM 04/25/16 06:00 Intake Total 960 ml Output Total 550 ml Balance 410 ml PAMELA COX MD Apr 25, 2016 15:29
[2016-04-25] MEDS: VANCOMYCIN HCL 1,000 MG, VIAL MATE ADAPTER 1 EACH in D5W 250 ML IV SCH (16:08)
[2016-04-25] MEDS: CHECK TO SEE IF PATIENT IS RECEIVING DIALYSIS TODAY AND REFER TO THE VANCOMYCIN ORDER XX SCH (16:16)
[2016-04-25] MEDS: LEVEMIR (INSULIN DETEMIR) 1 UNITS/0.01ML SC SCH (20:31)
[2016-04-25] MEDS: CLOPIDOGREL 75 MG TAB PO SCH (20:32)
[2016-04-25] MEDS: SIMVASTATIN 20 MG TAB PO SCH (20:42)
[2016-04-25] MEDS: TERAZOSIN 5 MG CAP PO SCH (20:42)
[2016-04-26] MEDS ORDERED: SODIUM CHLORIDE NASAL 0.65% SPRAY BTL (OCEAN) PRN
[2016-04-26] MEDS: IPRATROPIUM 0.5MG/ALBUTEROL 2.5MG INH SOL UD 3ML (DUONEB)(J7620) NEB SCH ×6 (01:40→23:13)
[2016-04-26] MEDS: SODIUM CHLORIDE HYPERTONIC 3% 15ML NEB SOL INH SCH ×7 (01:41→23:12)
[2016-04-26] MEDS: LORazepam 0.5 MG TAB PO PRN ×3 (03:15→20:36)
[2016-04-26] MEDS: ALBUTEROL SULFATE 2.5 MG/0.5 ML INH NEB SOLN NEB PRN (03:22)
[2016-04-26 05:29] VITALS: BP 152/70
[2016-04-26 05:57] LABS: MEAN CORPUSCULAR HEMOGLOBIN 27.7 pg (27.0-33.0); MEAN CORPUSCULAR HGB CONC 31.2 g/dl (32.0-36.5); MEAN CORPUSCULAR VOLUME 88.8 fl (80.0-96.0); WHITE BLOOD COUNT 11.8 K/mm3 (4.0-10.0)
[2016-04-26 06:11] LABS: CREATININE FOR GFR 2.08 MG/DL (0.70-1.30); GLOMERULAR FILTRATION RATE 33.1 (>42); POTASSIUM SERUM 4.4 MEQ/L (3.5-5.1)
[2016-04-26] MEDS: SLF 3 ML SYR IV SCH ×3 (06:19→20:39)
[2016-04-26] MEDS: ISOSORBIDE DIN. (ISORDIL) 20 MG TAB PO SCH ×3 (06:19→16:41)
[2016-04-26 08:00] VITALS: BP 150/84
[2016-04-26] MEDS: SYMBICORT 160/4.5MCG INHALER 6GM INH SCH ×2 (08:14→20:23)
[2016-04-26] MEDS: TIOTROPIUM INHALER/CAPSULE (SPIRIVA) INH SCH (08:14)
[2016-04-26] MEDS: PIPERACILLIN/TAZOBACTAM SOD 2.25 GM in D5W MINI-BAG PLUS 50 ML IV SCH ×3 (08:25→23:18)
[2016-04-26] MEDS: HumaLOG INSULIN (NovoLOG) PER UNIT SC SCH ×4 (08:25→20:38)
[2016-04-26] MEDS: ASPIRIN 81 MG ENTERIC TAB PO SCH (08:26)
[2016-04-26] MEDS: PANTOPRAZOLE 40MG TAB (PROTONIX) PO SCH (08:26)
[2016-04-26] MEDS: ESCITALOPRAM OXALATE 10 MG TAB (LEXAPRO) PO SCH (08:26)
[2016-04-26] MEDS: LABETALOL 100 MG TAB PO SCH ×2 (08:26→20:36)
[2016-04-26] MEDS: **hydrALAZINE** 50 MG TAB PO SCH ×3 (08:26→20:35)
[2016-04-26] MEDS: FLUCONAZOLE 100 MG TAB PO SCH (08:26)
[2016-04-26] MEDS: APIXABAN 5 MG TAB (ELIQUIS) PO SCH ×2 (08:26→20:36)
[2016-04-26] MEDS: VITAMIN D 1,000 INTERNATIONAL UNITS TABLET PO SCH (08:27)
[2016-04-26] MEDS: cloNIDine 0.1 MG TAB PO SCH ×3 (08:27→20:37)
[2016-04-26] MEDS: MULTIVITAMINS/MINERALS THERAP 1 TAB PO SCH (08:27)
[2016-04-26] MEDS: SENOKOT S TAB PO SCH ×2 (08:27→20:38)
[2016-04-26] MEDS: guaiFENesin ER 600 MG TAB PO SCH ×2 (08:27→20:35)
[2016-04-26] MEDS: FERROUS SULFATE 325MG TAB PO SCH (08:27)
[2016-04-26] MEDS: MIRALAX *UNIT DOSE* 17GM PACKET PO SCH (08:28)
--- NOTE | 2016-04-26 10:29 | REP ---
Clinical: Congestion. Comparison: 04/22/2016. Findings: Dialysis catheter with tip in the SVC. Cardiac silhouette is upper limits of normal and stable. The lung ramirez demonstrate chronic changes without obvious consolidation, effusion or pneumothorax. No significant findings to suggest pulmonary vascular congestion. Impression: Stable portable chest x-ray. No definite acute cardiopulmonary process. Signed by Johnny Berrios MD 04/26/2016 10:20 A
[2016-04-26] MEDS: methylPREDNISolone INJ 40 MG/1 ML VIAL (J2920) IV SCH ×2 (10:36→18:11)
--- NOTE | 2016-04-26 11:31 | IPN ---
DATE: 04/25/2016 SUBJECTIVE: The patient was seen and examined at the bedside today in the morning during hemodialysis procedure. The patient was in moderate respiratory distress, tachypneic and was wheezing. He had just been started on hemodialysis. The patient reported that he was short of breath all night. When he started hemodialysis out goal was to remove 3 liters of fluid with hemodialysis. The patient otherwise is hemodynamically stable. REVIEW OF SYSTEMS: The patient denies any fever, chills, rigors, headache, nausea, vomiting, or chest pain. He reported shortness of breath of wheezing almost all night. He denies any nausea or vomiting, pain in abdomen or constipation. The rest of the review of systems is negative. OBJECTIVE: VITAL SIGNS: Temperature this morning was 96.5 degrees Fahrenheit, blood pressure was 151/77, pulse 78, respiratory rate of 24, saturating 91% on 3 liters by nasal cannula. Intake and output: There is urine output of 550 mL recorded yesterday. Weight in the bed scale recorded today is 104.4 kg. PHYSICAL EXAMINATION: GENERAL: The patient is awake, alert and oriented times three. Laying in bed. Getting hemodialysis done in moderate respiratory distress. HEAD/NECK: Extraocular muscles intact. Pupils equally round and reactive to light. Mucous membranes are moist. Neck is supple. There is no jugular venous distention (JVD). He has a tunneled right IJ hemodialysis catheter. CARDIOVASCULAR: S1, S2, tachycardia. No murmur, rub or gallop. RESPIRATORY: Decreased air entry at the bases and diffuse expiratory rhonchi at bilateral bases. ABDOMEN: Soft. Positive bowel sounds. Nontender. No ascites. No organomegaly. EXTREMITIES: No clubbing or cyanosis. No edema of the bilateral lower extremities. CENTRAL NERVOUS SYSTEM: No focal or neurological deficit. Power is 5/5 in all extremities. LABORATORY REVIEW: CBC showed a WBC of 16.2, which is worse than yesterday. Hemoglobin is 10.1. Platelets are 325. BMP showed sodium 133, potassium 4.5, chloride 94, bicarbonate 27, BUN 40, creatinine is 2.5, calcium is 8.4. C-reactive protein is 9.5. CURRENT MEDICATIONS: The patient's current medications are all reviewed by me. He has been started on Zosyn 2.25 grams IV every 8 hourly because of worsening leukocytosis. He continues to be on Solu-Medrol 40 mg IV every 12 hourly. There is no other change in the medications today as compared with yesterday. ASSESSMENT: 75-year-old male with past medical history of end-stage renal disease on hemodialysis admitted this time with respiratory distress. Nephrology service following the patient for management of end-stage renal disease. PLAN: 1. Acute respiratory distress. The patient has respiratory syncytial virus positive in the viral panel. He also has heavy growth of staphylococcus aureus in the sputum. He is getting IV vancomycin and oral (p.o.) fluconazole; however, his white cell count was getting worse so he has been started on Zosyn today morning. Continue the IV steroids and nebulizations and we shall try to do an ultrafiltration of 3 liters with hemodialysis. That would also help improve his shortness of breath. 2. End-stage renal disease, on hemodialysis. The patient's regular dialysis days are Friday, Friday and Friday, however because of his sickness he is off schedule and he is being dialyzed today. We shall evaluate the patient tomorrow for any need for hemodialysis. 3. Hypertension. The patient's blood pressure is acceptable at this time. Ultrafiltration will also help lower blood pressure. Continue the current antihypertensive regimen. 4. Anemia in end-stage renal disease. The patient's hemoglobin is 10.1, which is within the acceptable range. Continue current dose of Aranesp 200 mcg IV with hemodialysis. 5. Chronic pulmonary emboli on CT angiogram of the chest. The patient has been started on Eliquis 5 mg by mouth twice a day. Continue current dose.
[2016-04-26 12:00] VITALS: BP 142/86
[2016-04-26] MEDS: CHECK TO SEE IF PATIENT IS RECEIVING DIALYSIS TODAY AND REFER TO THE VANCOMYCIN ORDER XX SCH (15:47)
[2016-04-26 16:00] VITALS: BP 139/82
--- NOTE | 2016-04-26 16:01 | IPNPDOC ---
Text Note Date of Service The patient was seen on 04/26/16. NOTE Subjective: Pt denies SOB/ chest pain/palpitations. Tolerated HD well. Objective: Vitals:(see below) General: No acute distress, laying comfortably in bed. HEENT: Moist mucous membranes. Neck: No JVD or lymphadenopathy Cardiac: RRR, No murmurs. Right HD catheter - no eythema/warmth/tenderness. Pulm: B/l wheezing/rhonchi. Coarse crackles b/l bases. Abd: NT/ND + BS Ext: Trace edema BLE Labs (see below) Images: CTA Chest 04/23/16 There are no emboli in the pulmonary trunk or in the central pulmonary arteries. There are tiny filling defects in the distal pulmonary arteries to the posterior basilar segments of the lower lobes bilaterally. There are similar filling defects on the prior study. These small filling defects are eccentric and are compatible with chronic small pulmonary emboli . No other emboli are identified in the lobe or segment branches bilaterally. There is a small left pleural effusion as an interval change. Dependent atelectasis is noted in the posterior lung ramirez. There are no masses or nodules. There appears to be focal pleural calcification at the left lateral margin of the superior mediastinum, unchanged. No other pleural calcification is identified. The thoracic aorta is unremarkable except for calcified atheroma. Cardiac size is normal. There is no pericardial effusion. The visualized upper abdominal contents are suggestive of a small volume of ascites adjacent to the spleen but are otherwise unremarkable. Impression: There are tiny probable chronic pulmonary emboli in the peripheral pulmonary arteries to the posterior basilar segments of the lower lobes as described. Bibasilar atelectatic changes, unchanged. Small new left pleural effusion. Probable small volume of ascites adjacent to the spleen. Assessment/Plan 1. Acute on Chronic Hypoxic Resp Failure - patient initially required BiPAP on presentation. Was on Ventimask however now is on 4 L nasal cannula. (His baseline is 3L at home). Mucinex and Robitussin been added for mucolytic. Patient is on vancomycin for MSSA sputum. CRP and WBC trending down on Zosyn. Nebulizers. Steroids. I have asked Dr. Ortiz to see patient today. 2. Chronic PE -continue Eliquis. Hb stable. Remote h/o GI bleed; no recent. Cont to monitor Hb. Echocardiogram pending. 3. + RSV - supportive care, steroids 4. ESRD on HD -on a Friday/Friday/Friday schedule. Appreciate nephro input. 5. Acute COPD exacerbation - on 3L NC at baseline. Nebs, Steroids. 6. Gout- cont home meds 7. HTN - cont home meds 8. BPH - cont home meds 9. DM - cont levemir, SSI 10. ANKITA CPAP DVT prophy: Eliquis VS,Fishbone, I+O VS, Fishbone, I+O Laboratory Tests 04/26/16 05:33 Calcium Level 9.0, Red Blood Count 3.98 L, Mean Corpuscular Volume 88.8, Mean Corpuscular Hemoglobin 27.7, Mean Corpuscular Hemoglobin Concent 31.2 L, Red Cell Distribution Width 17.0 H Vital Signs Date Time Temp Pulse Resp B/P Pulse Ox O2 Delivery O2 Flow Rate FiO2 04/26/16 12:35 142/86 04/26/16 12:00 97.0 80 18 97 Nasal Cannula 4.0 04/21/16 06:00 40 I&O- Last 24 Hours up to 6 AM 04/26/16 05:59 Intake Total 1110 ml Output Total 3000 ml Balance -1890 ml PAMELA COX MD Apr 26, 2016 16:01
[2016-04-26 20:12] VITALS: BP 130/64
[2016-04-26] MEDS: TERAZOSIN 5 MG CAP PO SCH (20:36)
[2016-04-26] MEDS: SIMVASTATIN 20 MG TAB PO SCH (20:38)
[2016-04-26] MEDS: LEVEMIR (INSULIN DETEMIR) 1 UNITS/0.01ML SC SCH (20:38)
[2016-04-26 23:27] VITALS: BP 152/72
[2016-04-27] MEDS: LORazepam 0.5 MG TAB PO PRN ×5 (01:58→22:35)
[2016-04-27] MEDS: methylPREDNISolone INJ 40 MG/1 ML VIAL (J2920) IV SCH ×3 (01:59→18:32)
[2016-04-27] MEDS: IPRATROPIUM 0.5MG/ALBUTEROL 2.5MG INH SOL UD 3ML (DUONEB)(J7620) NEB SCH ×6 (03:36→23:59)
[2016-04-27 04:29] VITALS: BP 130/58
[2016-04-27 05:21] LABS: MEAN CORPUSCULAR HEMOGLOBIN 27.4 pg (27.0-33.0); MEAN CORPUSCULAR HGB CONC 31.5 g/dl (32.0-36.5); MEAN CORPUSCULAR VOLUME 87.1 fl (80.0-96.0); RED CELL DISTRIBUTION WIDTH 17.2 % (11.5-14.5); WHITE BLOOD COUNT 10.8 K/mm3 (4.0-10.0)
[2016-04-27 05:28] LABS: CALCIUM LEVEL 8.6 MG/DL (8.8-10.2); CREATININE FOR GFR 2.81 MG/DL (0.70-1.30); GLOMERULAR FILTRATION RATE 23.4 (>42); POTASSIUM SERUM 4.7 MEQ/L (3.5-5.1)
--- NOTE | 2016-04-27 06:28 | IPN ---
DATE OF SERVICE: 04/26/2016 SUBJECTIVE: Patient was seen and examined at the bedside today in the morning. He was lying in bed. He continues to be in respiratory distress. He was tachypneic, complaining of wheezing. He was dialyzed yesterday. Three liters of fluid were removed, but he continues to be short of breath at this time. His antibiotic regimen was also increased by primary team and the steroids were also increased. REVIEW OF SYSTEMS: Patient denies any fevers, chills, rigors, headache, nausea, vomiting, chest pain. He persistently complained of shortness of breath and wheezing, and tachypnea. He denies any pain abdomen, constipation or diarrhea. Rest of review of systems is negative. OBJECTIVE: VITAL SIGNS: Temperature is 97.3 degrees Fahrenheit, blood pressure is 139/82, pulse is 82, respiratory rate of 18, saturating 97% on nasal cannula on 4 liters. INTAKE AND OUTPUT: Urine output is 600 mL so far since overnight. Ultrafiltration done with hemodialysis was 3 liters. Weight on the bed scale is 103 kg. PHYSICAL EXAMINATION: GENERAL: Patient is awake, alert, and oriented times three, lying in bed, in moderate respiratory distress. HEAD AND NECK EXAMINATION: Extraocular muscles intact. Pupils equally round and reactive to light. Mucous membranes are moist. Neck is supple. There is no jugular venous distention (JVD). The patient has a tunneled right internal jugular (IJ) hemodialysis catheter. CARDIOVASCULAR: S1, S2. Regular rate. No murmur, rub, or gallop. RESPIRATORY: Patient is tachypneic. He has wheezing and he has diffuse bilateral expiratory rhonchi, especially at the bases. CENTRAL NERVOUS SYSTEM (ADMINISTRATIVE PROCESSOR): No focal neurological deficit. Power is 5/5 in all extremities. SKIN: No rashes or ulcers. LABORATORY REVIEW: CBC showed WBC of 11.8, hemoglobin 11, platelets are 324. His white cell count is improved as compared with yesterday. BMP showed sodium 135, potassium 4.4, chloride 97, bicarbonate 29, BUN 33, creatinine 2.08, calcium is 9. C-reactive protein is 5.9. IMAGING: A chest x-ray done today morning showed no acute cardiopulmonary process. There were chronic changes in the lungs. There was no obvious consolidation, effusion, or pneumothorax. There was no pulmonary vascular congestion. CURRENT MEDICATIONS: Patient's medications were all reviewed by me. The significant changes in the medications include his DuoNebs have been changed to every 4 hours. Guaifenesin dose has been increased to 1200 mg by mouth twice a day. His Plavix has been stopped. Ativan has been changed to every 4 hours for anxiety. His Solu-Medrol dose has been changed to 60 mg intravenous (IV) every 8 hours. He continues to be on IV vancomycin after hemodialysis and IV Zosyn 2.25 grams every 8 hours. ASSESSMENT: 75-year-old male with past medical history of end-stage renal disease on hemodialysis, admitted this time with respiratory distress secondary to respiratory syncytial virus infection. Nephrology service following the patient for management of end-stage renal disease. PLAN: 1. Persistent respiratory distress. Patient has a positive respiratory syncytial virus on admission. He was also found to have Staphylococcus aureus in the sputum culture. He is getting intravenous (IV) vancomycin and he is also on oral fluconazole for yeast in the sputum. However, his white cell count was persistently rising, so he was started on IV Zosyn as well. His steroids and nebulization frequency has been increased because of persistent wheezing and shortness of breath. His symptoms have not improved despite dialysis, ultrafiltration, steroids, and antibiotics. I recommend getting pulmonology on board. 2. End-stage renal disease on hemodialysis. The patient is at his dry weight. There are no clinical signs of fluid overload and there is no indication of hemodialysis today. Patient will be dialyzed tomorrow. 3. Hypertension. The patient's blood pressure is acceptable at this time. Continue current antihypertensive regimen. 4. Anemia in end-stage renal disease. Patient's hemoglobin is improved to 11 now. Continue current dose of Aranesp 200 mcg IV with hemodialysis once a week. 5. Chronic pulmonary emboli on CT angiogram. Patient has been started on Eliquis 5 mg by mouth twice a day. The plan of care was discussed with the hospitalist team, Dr. Larry Freedman.
[2016-04-27] MEDS: guaiFENesin ER 600 MG TAB PO SCH ×2 (06:31→21:45)
[2016-04-27] MEDS: PANTOPRAZOLE 40MG TAB (PROTONIX) PO SCH (06:31)
[2016-04-27] MEDS: FLUCONAZOLE 100 MG TAB PO SCH (06:31)
[2016-04-27] MEDS: ASPIRIN 81 MG ENTERIC TAB PO SCH (06:31)
[2016-04-27] MEDS: FERROUS SULFATE 325MG TAB PO SCH (06:32)
[2016-04-27] MEDS: ISOSORBIDE DIN. (ISORDIL) 20 MG TAB PO SCH ×3 (06:32→17:15)
[2016-04-27] MEDS: ESCITALOPRAM OXALATE 10 MG TAB (LEXAPRO) PO SCH (06:32)
[2016-04-27] MEDS: APIXABAN 5 MG TAB (ELIQUIS) PO SCH ×2 (06:32→21:47)
[2016-04-27] MEDS: SENOKOT S TAB PO SCH ×2 (06:32→21:47)
[2016-04-27] MEDS: MIRALAX *UNIT DOSE* 17GM PACKET PO SCH (06:33)
[2016-04-27] MEDS: SLF 3 ML SYR IV SCH ×3 (06:34→21:48)
[2016-04-27] MEDS: PIPERACILLIN/TAZOBACTAM SOD 2.25 GM in D5W MINI-BAG PLUS 50 ML IV SCH ×2 (06:38→16:50)
[2016-04-27 06:40] VITALS: BP 142/56
[2016-04-27] MEDS: VITAMIN D 1,000 INTERNATIONAL UNITS TABLET PO SCH (06:42)
[2016-04-27] MEDS: MULTIVITAMINS/MINERALS THERAP 1 TAB PO SCH (06:42)
[2016-04-27] MEDS: HumaLOG INSULIN (NovoLOG) PER UNIT SC SCH ×4 (07:39→21:47)
[2016-04-27] MEDS: LABETALOL 100 MG TAB PO SCH ×2 (07:40→21:45)
[2016-04-27] MEDS: **hydrALAZINE** 50 MG TAB PO SCH ×3 (07:40→21:46)
[2016-04-27] MEDS: cloNIDine 0.1 MG TAB PO SCH ×3 (07:41→21:47)
[2016-04-27 07:46] VITALS: BP 140/64
[2016-04-27] MEDS: TIOTROPIUM INHALER/CAPSULE (SPIRIVA) INH SCH (08:00)
[2016-04-27] MEDS: SYMBICORT 160/4.5MCG INHALER 6GM INH SCH ×2 (09:00→20:57)
[2016-04-27] MEDS ORDERED: HEPARIN 1,000 UNITS/ML 10ML VIAL (FOR RADIOLOGY& DIALYSIS ONLY) IV ONE (11:30)
[2016-04-27] MEDS: SODIUM CHLORIDE HYPERTONIC 3% 15ML NEB SOL INH SCH ×5 (11:58→23:59)
--- NOTE | 2016-04-27 12:13 | IPNPDOC ---
Text Note Date of Service The patient was seen on 04/27/16. NOTE Subjective: SOB has significantly improved since yesterday. No chest pain/ palpitations. Tolerated HD well. Objective: Vitals:(see below) General: No acute distress, laying comfortably in bed. HEENT: Moist mucous membranes. Neck: No JVD or lymphadenopathy Cardiac: RRR, No murmurs. Right HD catheter - no eythema/warmth/tenderness. Pulm: Minimal B/l wheezing/rhonchi, improved from yesterday. Coarse crackles b/ l bases. Abd: NT/ND + BS Ext: Trace edema BLE Labs (see below) Images: CTA Chest 04/23/16 There are no emboli in the pulmonary trunk or in the central pulmonary arteries. There are tiny filling defects in the distal pulmonary arteries to the posterior basilar segments of the lower lobes bilaterally. There are similar filling defects on the prior study. These small filling defects are eccentric and are compatible with chronic small pulmonary emboli . No other emboli are identified in the lobe or segment branches bilaterally. There is a small left pleural effusion as an interval change. Dependent atelectasis is noted in the posterior lung ramirez. There are no masses or nodules. There appears to be focal pleural calcification at the left lateral margin of the superior mediastinum, unchanged. No other pleural calcification is identified. The thoracic aorta is unremarkable except for calcified atheroma. Cardiac size is normal. There is no pericardial effusion. The visualized upper abdominal contents are suggestive of a small volume of ascites adjacent to the spleen but are otherwise unremarkable. Impression: There are tiny probable chronic pulmonary emboli in the peripheral pulmonary arteries to the posterior basilar segments of the lower lobes as described. Bibasilar atelectatic changes, unchanged. Small new left pleural effusion. Probable small volume of ascites adjacent to the spleen. Assessment/Plan 1. Acute on Chronic Hypoxic Resp Failure - patient initially required BiPAP on presentation. Was on Ventimask however now is on 4 L nasal cannula. (His baseline is 3L at home). Mucinex and Robitussin been added for mucolytic. Patient is on vancomycin for MSSA sputum. CRP and WBC trending down on Zosyn. Nebulizers. Steroids. Steroids increased yesterday, with improving of respiratory status 2. Chronic PE -continue Eliquis. Hb stable. Remote h/o GI bleed; no recent. Cont to monitor Hb. Echocardiogram pending. 3. + RSV - supportive care, steroids 4. ESRD on HD -on a Friday/Friday/Friday schedule. Appreciate nephro input. 5. Acute COPD exacerbation - on 3L NC at baseline. Nebs, Steroids. 6. Gout- cont home meds 7. HTN - cont home meds 8. BPH - cont home meds 9. DM - cont levemir, SSI 10. ANKITA CPAP DVT prophy: Eliquis VS,Fishbone, I+O VS, Fishbone, I+O Laboratory Tests 04/27/16 04:30 Calcium Level 8.6 L, Red Blood Count 3.85 L, Mean Corpuscular Volume 87.1, Mean Corpuscular Hemoglobin 27.4, Mean Corpuscular Hemoglobin Concent 31.5 L, Red Cell Distribution Width 17.2 H Vital Signs Date Time Temp Pulse Resp B/P Pulse Ox O2 Delivery O2 Flow Rate FiO2 04/27/16 07:46 96.0 58 22 140/64 95 Nasal Cannula 4.0 04/21/16 06:00 40 I&O- Last 24 Hours up to 6 AM 04/27/16 06:00 Intake Total 1340 ml Output Total 875 ml Balance 465 ml PAMELA COX MD Apr 27, 2016 12:13
[2016-04-27 13:05] VITALS: BP 170/62
--- NOTE | 2016-04-27 15:19 | IPN ---
DATE: 04/27/2016 Mr. Snyder is seen this morning during hemodialysis. He was admitted with severe sudden shortness of breath the day after dialysis. He had recently started hemodialysis, which did help him improve initially. Since admission, he has become very weak and has been tested positive for RSV on his nasopharyngeal swab. His sputum culture showed Staphylococcus aureus and yeast-like organisms. The patient has been dialyzed and fluid removed; however, it did not help with his shortness of breath. He is also receiving steroids and antibiotics. The patient denies any nausea or vomiting and reports poor appetite. He has no hemoptysis or pleuritic type chest pain. PHYSICAL EXAMINATION Temperature 96.3 degrees Fahrenheit, heart rate 76 per minute and respiratory rate 22 per minute. Blood pressure 170/62 mmHg and oxygen saturation 96% on 4 liters oxygen. Head is atraumatic. His face is slightly flushed. Neck veins are not abnormally distended. Hemodialysis catheter is in place and right internal jugular vein. Ears, nose and throat are unremarkable. Pupils are equal and reactive to light. Sclera is anicteric. Heart sounds are distant and regular. Lungs have bilateral expiratory wheezing and rhonchi. Abdomen is obese, soft and nontender and without any palpable organomegaly. Bowel sounds are normal. Extremities have no cyanosis or clubbing. Skin has no rash or ulcers. Neurologically, he is awake, alert and oriented times three. Today's labs show WBC count 10.8, hemoglobin 10.5 and hematocrit 33.5. Platelets 319. Sodium 133 and potassium 4.7. BUN 54 and creatinine 2.81. Glucose 153 and calcium 8.6. PROBLMES: 1. End-stage renal disease. The patient remains dialysis dependent. We will dialyze him for 3-1/2 hours today. His urine output is minimal and does not have adequate kidney function to support him without dialysis. 2. Hypoxemia. Mostly related to infective etiology. His volume status seems well compensated. He does have chronic hypoxemia and was on 3 liters oxygen, even at home prior to admission. With ongoing respiratory infection, his hypoxemia has worsened. At this point, a pulmonary consult is pending, and we will continue with antibiotics and bronchodilators. 3. Hyponatremia. This is mild and chronic. There is no significant change in his sodium level. He does have mild fluctuations depending upon dialysis. We anticipate slight improvement with hemodialysis today. 4. Anemia. His anemia has been stable and we will continue with current management. 5. Generalized deconditioning and weakness. This is related to his multiorgan problem and ongoing respiratory issues. At present, the patient is not able to even get up from his bed. He is likely to require prolonged subacute rehabilitation. His prognosis remains guarded.
[2016-04-27 16:00] VITALS: BP 120/56
[2016-04-27] MEDS: CHECK TO SEE IF PATIENT IS RECEIVING DIALYSIS TODAY AND REFER TO THE VANCOMYCIN ORDER XX SCH (16:51)
[2016-04-27] MEDS: VANCOMYCIN HCL 1,000 MG, VIAL MATE ADAPTER 1 EACH in D5W 250 ML IV SCH (17:16)
[2016-04-27] MEDS: guaiFENesin DM LIQ 10ML UD PO PRN (19:43)
[2016-04-27 20:00] VITALS: BP 162/60
[2016-04-27] MEDS: LEVEMIR (INSULIN DETEMIR) 1 UNITS/0.01ML SC SCH (21:46)
[2016-04-27] MEDS: TERAZOSIN 5 MG CAP PO SCH (21:46)
[2016-04-27] MEDS: SIMVASTATIN 20 MG TAB PO SCH (21:46)
[2016-04-28] VITALS (7 sets, daily range): BP systolic 122–180; BP diastolic 58–76
[2016-04-28] MEDS: PIPERACILLIN/TAZOBACTAM SOD 2.25 GM in D5W MINI-BAG PLUS 50 ML IV SCH ×4 (00:10→23:45)
[2016-04-28] MEDS: methylPREDNISolone INJ 40 MG/1 ML VIAL (J2920) IV SCH ×3 (01:24→17:09)
[2016-04-28] MEDS: SODIUM CHLORIDE HYPERTONIC 3% 15ML NEB SOL INH SCH ×6 (04:03→23:43)
[2016-04-28] MEDS: IPRATROPIUM 0.5MG/ALBUTEROL 2.5MG INH SOL UD 3ML (DUONEB)(J7620) NEB SCH ×6 (04:03→23:43)
[2016-04-28] MEDS: SLF 3 ML SYR IV SCH ×3 (06:18→20:13)
[2016-04-28] MEDS: ISOSORBIDE DIN. (ISORDIL) 20 MG TAB PO SCH ×3 (06:18→16:15)
[2016-04-28] MEDS: SYMBICORT 160/4.5MCG INHALER 6GM INH SCH ×2 (07:36→20:32)
[2016-04-28] MEDS: TIOTROPIUM INHALER/CAPSULE (SPIRIVA) INH SCH (07:36)
[2016-04-28] MEDS: HumaLOG INSULIN (NovoLOG) PER UNIT SC SCH ×4 (07:54→20:12)
[2016-04-28] MEDS: LABETALOL 100 MG TAB PO SCH ×2 (09:10→20:09)
[2016-04-28] MEDS: VITAMIN D 1,000 INTERNATIONAL UNITS TABLET PO SCH (09:10)
[2016-04-28] MEDS: MIRALAX *UNIT DOSE* 17GM PACKET PO SCH (09:10)
[2016-04-28] MEDS: ASPIRIN 81 MG ENTERIC TAB PO SCH (09:11)
[2016-04-28] MEDS: **hydrALAZINE** 50 MG TAB PO SCH ×3 (09:11→20:10)
[2016-04-28] MEDS: PANTOPRAZOLE 40MG TAB (PROTONIX) PO SCH (09:11)
[2016-04-28] MEDS: SENOKOT S TAB PO SCH ×2 (09:11→20:11)
[2016-04-28] MEDS: guaiFENesin ER 600 MG TAB PO SCH ×2 (09:11→20:09)
[2016-04-28] MEDS: FLUCONAZOLE 100 MG TAB PO SCH (09:11)
[2016-04-28] MEDS: ESCITALOPRAM OXALATE 10 MG TAB (LEXAPRO) PO SCH (09:11)
[2016-04-28] MEDS: MULTIVITAMINS/MINERALS THERAP 1 TAB PO SCH (09:11)
[2016-04-28] MEDS: APIXABAN 5 MG TAB (ELIQUIS) PO SCH ×2 (09:11→20:12)
[2016-04-28] MEDS: FERROUS SULFATE 325MG TAB PO SCH (09:12)
[2016-04-28] MEDS: cloNIDine 0.1 MG TAB PO SCH ×3 (09:12→20:12)
[2016-04-28] MEDS: LORazepam 0.5 MG TAB PO PRN ×2 (12:22→22:17)
--- NOTE | 2016-04-28 13:44 | IPN ---
DATE: 04/28/2016 Mr. Snyder is seen this morning on his bedside. He underwent hemodialysis yesterday, which he tolerated well. Today, he feels better and reports improved energy and decreased cough. He remains oxygen dependent with chronic hypoxemia. He denies any fever, chills, chest pain, hemoptysis, abdominal pain, vomiting or diarrhea. PHYSICAL EXAMINATION Temperature 96.9 degrees Fahrenheit, heart rate 64 per minute and respiratory rate 22 per minute. Blood pressure 146/58 mmHg and oxygen saturation 94% on 4 liters oxygen. He has a right-sided internal jugular vein hemodialysis catheter in place, which is intact. Head is atraumatic. Ears, nose and throat are unremarkable. Pupils equal and reactive to light and sclera is anicteric. There is no oral thrush or ulcers. Heart sounds are regular and distant. Lungs with bilateral rhonchi and diminished breath sounds. Abdomen is obese and nontender. Bowel sounds are normal. Extremities have no cyanosis or clubbing. Skin has no rash or ulcers. Neurologically, he is awake, alert and oriented times three. The patient has no new labs done since yesterday. PROBLEMS: 1. End-stage renal disease. The patient remains dialysis dependent and he was dialyzed yesterday. We will plan to schedule his next dialysis for 04/30. At present, there is no emergent indication for dialysis today. 2. Hypoxemia, most likely related to his chronic lung disease and recent respiratory syncytial viral infection. The patient is gradually improving and we will try to monitor his volume status closely and maintain him at the euvolemic state with hemodialysis. 3. Anemia. The patient has chronic anemia, which is stable. We will monitor and treat with Aranesp during hemodialysis. 4. Generalized weakness and deconditioning. This is a chronic issue, and the patient is likely to require subacute rehabilitation. 5. Hyponatremia. Sodium level is slightly low and it is chronic hyponatremia. At this point, no urgent intervention is indicated as it is likely to improve with hemodialysis.
--- NOTE | 2016-04-28 13:48 | IPNPDOC ---
Text Note Date of Service The patient was seen on 04/28/16. NOTE Subjective: SOB has continued to improve. No chest pain/palpitations. Objective: Vitals:(see below) General: No acute distress, laying comfortably in bed. HEENT: Moist mucous membranes. Neck: No JVD or lymphadenopathy Cardiac: RRR, No murmurs. Right HD catheter - no eythema/warmth/tenderness. Pulm: Minimal B/l wheezing/rhonchi, improved from yesterday. Coarse crackles b/ l bases. Abd: NT/ND + BS Ext: Trace edema BLE Labs (see below) Images: CTA Chest 04/23/16 There are no emboli in the pulmonary trunk or in the central pulmonary arteries. There are tiny filling defects in the distal pulmonary arteries to the posterior basilar segments of the lower lobes bilaterally. There are similar filling defects on the prior study. These small filling defects are eccentric and are compatible with chronic small pulmonary emboli . No other emboli are identified in the lobe or segment branches bilaterally. There is a small left pleural effusion as an interval change. Dependent atelectasis is noted in the posterior lung ramirez. There are no masses or nodules. There appears to be focal pleural calcification at the left lateral margin of the superior mediastinum, unchanged. No other pleural calcification is identified. The thoracic aorta is unremarkable except for calcified atheroma. Cardiac size is normal. There is no pericardial effusion. The visualized upper abdominal contents are suggestive of a small volume of ascites adjacent to the spleen but are otherwise unremarkable. Impression: There are tiny probable chronic pulmonary emboli in the peripheral pulmonary arteries to the posterior basilar segments of the lower lobes as described. Bibasilar atelectatic changes, unchanged. Small new left pleural effusion. Probable small volume of ascites adjacent to the spleen. Assessment/Plan 1. Acute on Chronic Hypoxic Resp Failure - Improved. patient initially required BiPAP on presentation. Was on Ventimask however now is on 4 L nasal cannula. (His baseline is 3L at home). Mucinex and Robitussin been added for mucolytic. Patient is on vancomycin for MSSA sputum. CRP and WBC trending down on Zosyn. Nebulizers. Steroids. 2. Chronic PE -continue Eliquis. Hb stable. Remote h/o GI bleed; no recent. Cont to monitor Hb. Echocardiogram pending. 3. + RSV - supportive care, steroids 4. ESRD on HD -on a Friday/Friday/Friday schedule. Appreciate nephro input. 5. Acute COPD exacerbation - on 3L NC at baseline. Nebs, Steroids. 6. Gout- cont home meds 7. HTN - cont home meds 8. BPH - cont home meds 9. DM - cont levemir, SSI 10. ANKITA CPAP DVT prophy: Eliquis VS,Fishbone, I+O VS, Fishbone, I+O Vital Signs Date Time Temp Pulse Resp B/P Pulse Ox O2 Delivery O2 Flow Rate FiO2 04/28/16 12:23 150/60 04/28/16 09:10 64 04/28/16 08:00 96.9 22 94 Nasal Cannula 4.0 I&O- Last 24 Hours up to 6 AM 04/28/16 06:00 Intake Total 1130 ml Output Total 2300 ml Balance -1170 ml PAMELA COX MD Apr 28, 2016 13:48
[2016-04-28] MEDS: CHECK TO SEE IF PATIENT IS RECEIVING DIALYSIS TODAY AND REFER TO THE VANCOMYCIN ORDER XX SCH (15:48)
[2016-04-28] MEDS: LEVEMIR (INSULIN DETEMIR) 1 UNITS/0.01ML SC SCH (20:10)
[2016-04-28] MEDS: SIMVASTATIN 20 MG TAB PO SCH (20:11)
[2016-04-28] MEDS: TERAZOSIN 5 MG CAP PO SCH (20:11)
[2016-04-29] MEDS: methylPREDNISolone INJ 40 MG/1 ML VIAL (J2920) IV SCH ×3 (02:10→20:53)
[2016-04-29] MEDS: IPRATROPIUM 0.5MG/ALBUTEROL 2.5MG INH SOL UD 3ML (DUONEB)(J7620) NEB SCH ×5 (04:19→20:00)
[2016-04-29] MEDS: SODIUM CHLORIDE HYPERTONIC 3% 15ML NEB SOL INH SCH ×5 (04:20→20:00)
[2016-04-29 04:46] VITALS: BP 152/68
[2016-04-29 05:35] LABS: BASO % 0.2 % (0.0-1.0); LARGE UNSTAINED CELL # 0.1 K/mm3 (0.0-0.4); LARGE UNSTAINED CELL % 0.3 % (0.0-4.0); LYMPH # 0.4 K/mm3 (1.5-4.5); MEAN CORPUSCULAR HEMOGLOBIN 26.8 pg (27.0-33.0); MEAN CORPUSCULAR HGB CONC 30.4 g/dl (32.0-36.5); MEAN CORPUSCULAR VOLUME 88.3 fl (80.0-96.0); MONO # 0.3 K/mm3 (0.0-0.8); MONO % 1.9 % (0.0-5.0); NEUTROPHILS # 13.1 K/mm3 (1.8-7.7); NEUTROPHILS % 94.6 % (36.0-66.0); PLATELET COUNT, AUTOMATED 269 k/mm3 (150-450); RED CELL DISTRIBUTION WIDTH 17.9 % (11.5-14.5); WHITE BLOOD COUNT 13.8 K/mm3 (4.0-10.0)
[2016-04-29 05:58] LABS: CALCIUM LEVEL 8.4 MG/DL (8.8-10.2); CREATININE FOR GFR 2.96 MG/DL (0.70-1.30)
[2016-04-29 06:04] LABS: POTASSIUM SERUM 5.2 MEQ/L (3.5-5.1)
[2016-04-29] MEDS: SLF 3 ML SYR IV SCH ×3 (06:18→20:57)
[2016-04-29] MEDS: LORazepam 0.5 MG TAB PO PRN ×2 (06:19→22:44)
[2016-04-29] MEDS: ISOSORBIDE DIN. (ISORDIL) 20 MG TAB PO SCH ×3 (06:19→17:02)
[2016-04-29] MEDS: SYMBICORT 160/4.5MCG INHALER 6GM INH SCH ×2 (07:24→20:07)
[2016-04-29] MEDS: TIOTROPIUM INHALER/CAPSULE (SPIRIVA) INH SCH (07:24)
[2016-04-29 08:00] VITALS: BP 138/78
[2016-04-29] MEDS: PIPERACILLIN/TAZOBACTAM SOD 2.25 GM in D5W MINI-BAG PLUS 50 ML IV SCH ×3 (08:47→22:44)
[2016-04-29] MEDS: cloNIDine 0.1 MG TAB PO SCH ×3 (08:48→20:55)
[2016-04-29] MEDS: guaiFENesin ER 600 MG TAB PO SCH ×2 (08:48→20:55)
[2016-04-29] MEDS: FLUCONAZOLE 100 MG TAB PO SCH (08:48)
[2016-04-29] MEDS: PANTOPRAZOLE 40MG TAB (PROTONIX) PO SCH (08:48)
[2016-04-29] MEDS: HumaLOG INSULIN (NovoLOG) PER UNIT SC SCH ×4 (08:48→20:56)
[2016-04-29] MEDS: APIXABAN 5 MG TAB (ELIQUIS) PO SCH ×2 (08:49→20:55)
[2016-04-29] MEDS: VITAMIN D 1,000 INTERNATIONAL UNITS TABLET PO SCH (08:49)
[2016-04-29] MEDS: ASPIRIN 81 MG ENTERIC TAB PO SCH (08:49)
[2016-04-29] MEDS: LABETALOL 100 MG TAB PO SCH ×2 (08:49→20:56)
[2016-04-29] MEDS: MULTIVITAMINS/MINERALS THERAP 1 TAB PO SCH (08:49)
[2016-04-29] MEDS: **hydrALAZINE** 50 MG TAB PO SCH ×3 (08:49→20:55)
[2016-04-29] MEDS: ESCITALOPRAM OXALATE 10 MG TAB (LEXAPRO) PO SCH (08:50)
[2016-04-29] MEDS: MIRALAX *UNIT DOSE* 17GM PACKET PO SCH (08:50)
[2016-04-29] MEDS: FERROUS SULFATE 325MG TAB PO SCH (08:50)
[2016-04-29] MEDS: SENOKOT S TAB PO SCH ×2 (08:50→20:55)
[2016-04-29 12:00] VITALS: BP 168/81
--- NOTE | 2016-04-29 13:08 | IPNPDOC ---
Text Note Date of Service The patient was seen on 04/29/16. NOTE Subjective: Denies SOB today. Wheezing has improved. No chest pain/ palpitations. Objective: Vitals:(see below) General: No acute distress, laying comfortably in bed. HEENT: Moist mucous membranes. Neck: No JVD or lymphadenopathy Cardiac: RRR, No murmurs. Right HD catheter - no eythema/warmth/tenderness. Pulm: Minimal B/l wheezing/rhonchi, improved from yesterday. Coarse crackles b/ l bases. Abd: NT/ND + BS Ext: Trace edema BLE Labs (see below) Images: CTA Chest 04/23/16 There are no emboli in the pulmonary trunk or in the central pulmonary arteries. There are tiny filling defects in the distal pulmonary arteries to the posterior basilar segments of the lower lobes bilaterally. There are similar filling defects on the prior study. These small filling defects are eccentric and are compatible with chronic small pulmonary emboli . No other emboli are identified in the lobe or segment branches bilaterally. There is a small left pleural effusion as an interval change. Dependent atelectasis is noted in the posterior lung ramirez. There are no masses or nodules. There appears to be focal pleural calcification at the left lateral margin of the superior mediastinum, unchanged. No other pleural calcification is identified. The thoracic aorta is unremarkable except for calcified atheroma. Cardiac size is normal. There is no pericardial effusion. The visualized upper abdominal contents are suggestive of a small volume of ascites adjacent to the spleen but are otherwise unremarkable. Impression: There are tiny probable chronic pulmonary emboli in the peripheral pulmonary arteries to the posterior basilar segments of the lower lobes as described. Bibasilar atelectatic changes, unchanged. Small new left pleural effusion. Probable small volume of ascites adjacent to the spleen. Assessment/Plan 1. Acute on Chronic Hypoxic Resp Failure - Improved. patient initially required BiPAP on presentation. Was on Ventimask however now is on 4 L nasal cannula. (His baseline is 3L at home). Mucinex and Robitussin been added for mucolytic. Patient is on vancomycin for MSSA sputum. CRP trending down on Zosyn. Nebulizers. Will taper steroids. 2. Chronic PE -continue Eliquis. Hb stable. Remote h/o GI bleed; no recent. Cont to monitor Hb. Echocardiogram pending. 3. + RSV - supportive care, steroids 4. ESRD on HD -on a Friday/Friday/Friday schedule. Appreciate nephro input. 5. Acute COPD exacerbation - on 3L NC at baseline. Nebs, Steroids. 6. Gout- cont home meds 7. HTN - cont home meds 8. BPH - cont home meds 9. DM - cont levemir, SSI 10. ANKITA CPAP DVT prophy: Eliquis Plan to d/c in the next 24-48 hrs. VS,Fishbone, I+O VS, Fishbone, I+O Laboratory Tests 04/29/16 05:00 Calcium Level 8.4 L, Red Blood Count 4.02 L, Mean Corpuscular Volume 88.3, Mean Corpuscular Hemoglobin 26.8 L, Mean Corpuscular Hemoglobin Concent 30.4 L, Red Cell Distribution Width 17.9 H, Neutrophils (%) (Auto) 94.6 H, Lymphocytes (%) ( Auto) 3.0 L, Monocytes (%) (Auto) 1.9, Eosinophils (%) (Auto) 0.0, Basophils (% ) (Auto) 0.2, Neutrophils # (Auto) 13.1 H, Lymphocytes # (Auto) 0.4 L, Monocytes # (Auto) 0.3, Eosinophils # (Auto) 0.0, Basophils # (Auto) 0.0 Vital Signs Date Time Temp Pulse Resp B/P Pulse Ox O2 Delivery O2 Flow Rate FiO2 04/29/16 12:00 96.9 69 20 168/81 99 Nasal Cannula 3.0 I&O- Last 24 Hours up to 6 AM 04/29/16 06:00 Intake Total 1550 ml Output Total 700 ml Balance 850 ml PAMELA COX MD Apr 29, 2016 13:08
[2016-04-29] MEDS: CHECK TO SEE IF PATIENT IS RECEIVING DIALYSIS TODAY AND REFER TO THE VANCOMYCIN ORDER XX SCH (15:21)
[2016-04-29 16:00] VITALS: BP 164/82
--- NOTE | 2016-04-29 17:53 | IPN ---
DATE: 04/29/2016 Mr. Snyder is seen this morning on his bedside. He is feeling better and continues to have some cough. He denies any fever or chills. There is no nausea, vomiting or diarrhea. He remains weak and mostly in the bed. However he reports that yesterday he did get out of bed in the chair. PHYSICAL EXAMINATION: Temperature is 97 degrees Fahrenheit, heart rate 68 per minute and respiratory rate 20 per minute. Blood pressure 140/78 mmHg and oxygen saturation 99% on 3 liters oxygen. HEENT: Head is atraumatic. Right-sided internal jugular vein hemodialysis catheter is intact. Ears, nose and throat are unremarkable. Pupils equal and reactive to light and sclera is anicteric. HEART: Sounds are distant but regular. LUNGS: Have moderate air entry with bilateral rhonchi. ABDOMEN: Obese and nontender. Bowel sounds are normal and there is no palpable organomegaly. EXTREMITIES: Have no cyanosis or clubbing. SKIN: Has no rash or ulcers. NEUROLOGICALLY: He is at his baseline mentation without a focal deficit. LABORATORY DATA: Today's labs show WBC count 13.8, hemoglobin 10.8 and hematocrit 35.5. Platelets 269. Sodium 130 and potassium 5.2. BUN 61 and creatinine 2.96. Glucose 156 and calcium 8.4. PROBLEMS: 1. End-stage renal disease. The patient was dialyzed on Friday and we will plan to dialyze him again tomorrow which is scheduled for now as outpatient. He is on Friday, Friday and Friday schedule and will try to get him back on his regular schedule during this week. At this point there is no emergent need for dialysis today. 2. Hypoxemia. The patient does have chronic hypoxemia due to lung disease and now has superimposed respiratory viral infection. I do not feel that his volume status is decompensated at this point. We will hold off on dialysis until tomorrow. 3. Hyperkalemia. This is very mild and does not need any intervention. The patient will wait for dialysis tomorrow. 4. Hyponatremia. Again sodium is chronically low with slight worsening. No acute intervention is indicated. We will try to correct his hypernatremia with hemodialysis over next few days. 5. Anemia. His anemia has been stable and he is being monitored routinely. 6. Deconditioning and weakness related to multiple medical conditions and acute viral infection. I have encouraged the patient to get out of bed more often.
[2016-04-29 20:00] VITALS: BP 148/78
[2016-04-29] MEDS: LEVEMIR (INSULIN DETEMIR) 1 UNITS/0.01ML SC SCH (20:53)
[2016-04-29] MEDS: TERAZOSIN 5 MG CAP PO SCH (20:54)
[2016-04-29] MEDS: SIMVASTATIN 20 MG TAB PO SCH (20:55)
[2016-04-30] VITALS: BP 168/78
[2016-04-30] MEDS: IPRATROPIUM 0.5MG/ALBUTEROL 2.5MG INH SOL UD 3ML (DUONEB)(J7620) NEB SCH ×6 (00:50→18:41)
[2016-04-30] MEDS: SODIUM CHLORIDE HYPERTONIC 3% 15ML NEB SOL INH SCH ×6 (00:50→18:41)
[2016-04-30 04:00] VITALS: BP 148/80
[2016-04-30] MEDS: SLF 3 ML SYR IV SCH ×3 (06:22→21:49)
[2016-04-30] MEDS: ISOSORBIDE DIN. (ISORDIL) 20 MG TAB PO SCH ×3 (06:22→18:49)
[2016-04-30] MEDS: PIPERACILLIN/TAZOBACTAM SOD 2.25 GM in D5W MINI-BAG PLUS 50 ML IV SCH ×3 (06:22→23:40)
[2016-04-30 06:27] LABS: BASO % 0.2 % (0.0-1.0); EOS # 0.1 K/mm3 (0.0-0.50); EOS % 0.4 % (0.0-3.0); LARGE UNSTAINED CELL % 0.1 % (0.0-4.0); LYMPH # 0.3 K/mm3 (1.5-4.5); LYMPH % 1.9 % (24.0-44.0); MEAN CORPUSCULAR HEMOGLOBIN 27.8 pg (27.0-33.0); MEAN CORPUSCULAR HGB CONC 31.4 g/dl (32.0-36.5); MEAN CORPUSCULAR VOLUME 88.5 fl (80.0-96.0); MONO # 0.4 K/mm3 (0.0-0.8); MONO % 2.7 % (0.0-5.0); NEUTROPHILS # 13.3 K/mm3 (1.8-7.7); NEUTROPHILS % 94.6 % (36.0-66.0); PLATELET COUNT, AUTOMATED 231 k/mm3 (150-450); RED CELL DISTRIBUTION WIDTH 18.5 % (11.5-14.5)
[2016-04-30 06:31] LABS: CALCIUM LEVEL 8.3 MG/DL (8.8-10.2); CREATININE FOR GFR 3.32 MG/DL (0.70-1.30); GLOMERULAR FILTRATION RATE 19.3 (>42)
[2016-04-30 06:34] LABS: POTASSIUM SERUM 5.5 MEQ/L (3.5-5.1)
[2016-04-30] MEDS: HumaLOG INSULIN (NovoLOG) PER UNIT SC SCH ×4 (07:30→21:00)
[2016-04-30] MEDS: SYMBICORT 160/4.5MCG INHALER 6GM INH SCH ×2 (07:37→21:38)
[2016-04-30] MEDS: TIOTROPIUM INHALER/CAPSULE (SPIRIVA) INH SCH (07:37)
[2016-04-30 08:00] VITALS: BP 150/64
[2016-04-30] MEDS: LORazepam 0.5 MG TAB PO PRN ×3 (08:26→21:45)
[2016-04-30] MEDS: MIRALAX *UNIT DOSE* 17GM PACKET PO SCH (10:42)
[2016-04-30] MEDS: methylPREDNISolone INJ 40 MG/1 ML VIAL (J2920) IV SCH ×2 (10:42→21:49)
[2016-04-30] MEDS: FERROUS SULFATE 325MG TAB PO SCH (10:43)
[2016-04-30] MEDS: ESCITALOPRAM OXALATE 10 MG TAB (LEXAPRO) PO SCH (10:43)
[2016-04-30] MEDS: SENOKOT S TAB PO SCH ×2 (10:43→21:47)
[2016-04-30] MEDS: guaiFENesin ER 600 MG TAB PO SCH ×2 (10:43→21:47)
[2016-04-30] MEDS: PANTOPRAZOLE 40MG TAB (PROTONIX) PO SCH (10:43)
[2016-04-30] MEDS: MULTIVITAMINS/MINERALS THERAP 1 TAB PO SCH (10:43)
[2016-04-30] MEDS: ASPIRIN 81 MG ENTERIC TAB PO SCH (10:44)
[2016-04-30] MEDS: APIXABAN 5 MG TAB (ELIQUIS) PO SCH ×2 (10:44→21:48)
[2016-04-30] MEDS: VITAMIN D 1,000 INTERNATIONAL UNITS TABLET PO SCH (10:44)
[2016-04-30] MEDS: LABETALOL 100 MG TAB PO SCH ×2 (10:50→21:46)
[2016-04-30] MEDS: **hydrALAZINE** 50 MG TAB PO SCH ×3 (10:50→21:47)
[2016-04-30] MEDS: cloNIDine 0.1 MG TAB PO SCH ×3 (10:50→21:48)
[2016-04-30 12:00] VITALS: BP 152/70
--- NOTE | 2016-04-30 12:53 | IPN ---
DATE: 04/30/2016 Mr. Snyder is seen this morning on his bedside. He remains essentially unchanged and has been mostly bed-bound. He has chronic hypoxemia and requires oxygen supplementation. Patient is due for hemodialysis today. On physical exam, temperature 95.5 degrees Fahrenheit, heart rate 65 per minute and respiratory rate 20 per minute. Blood pressure 150/64 mmHg and oxygen saturation 98% on 2 liters oxygen. His head is atraumatic. Eyes, ears, nose and throat are unremarkable. Neck is supple and without any jugular venous distention (JVD) or thyromegaly. right-sided internal jugular vein hemodialysis catheter is intact. Heart sounds are regular and distant. Lungs with bilateral rhonchi. Abdomen is obese, nontender and bowel sounds are present. Extremities without any cyanosis or clubbing. Skin has no rash or ulcers. Neurologically, he remains at about his baseline. Today's labs show WBC count 14.0, hemoglobin 11.1 and hematocrit 35.3. Sodium 133 and potassium 5.5. BUN 76 and creatinine 3.32. PROBLEMS: 1. Hyperkalemia. This is related to end-stage renal disease. Patient will be dialyzed with 2.0 mEq potassium bath. This will correct his hyperkalemia. 2. End-stage renal disease. Patient is currently dialysis dependent and he is going to have dialysis today. We will complete 3-1/2 hours of dialysis session with 2.0 mEq potassium bath. 3. Hypoxemia. This is chronic and related to his chronic lung disease with superimposed respiratory viral infection. He seems to be at about his baseline now. Volume status is well-compensated and we will try to maintain it with hemodialysis. 4. Hypertension. Blood pressure control is reasonable and likely to improve with hemodialysis and fluid removal today. 5. Anemia. His anemia has been stable and does not need any intervention at this point. 6. Generalized weakness and deconditioning. This is a chronic issue, which has worsened due to his acute illness. Patient is likely to require subacute rehabilitation. [facility]
[2016-04-30] MEDS ORDERED: HEPARIN 1,000 UNITS/ML 10ML VIAL (FOR RADIOLOGY& DIALYSIS ONLY) IV ONE (14:00)
[2016-04-30] MEDS ORDERED: HEPARIN 1,000 UNITS/ML 10ML VIAL (FOR RADIOLOGY& DIALYSIS ONLY) XX ONE (14:00)
[2016-04-30] MEDS: CHECK TO SEE IF PATIENT IS RECEIVING DIALYSIS TODAY AND REFER TO THE VANCOMYCIN ORDER XX SCH (16:00)
--- NOTE | 2016-04-30 17:03 | IPN ---
DATE: 04/30/2016 SUBJECTIVE: The patient is seen and examined in the room today. The patient continued to have difficulty breathing, continued to have wheezes, requiring nebulizer treatments. However, he stated he is improving compared to yesterday. No overnight events are reported. OBJECTIVE: VITAL SIGNS: Temperature is 95.5, pulse is 65, respiration 20, blood pressure 150/64, pulse oximetry is 98% with two liters nasal cannula. GENERAL: No sign of acute distress, alert and oriented times three. HEENT: Normocephalic, atraumatic. Extraocular motor grossly intact. CARDIOVASCULAR: Positive S1, S2, regular rate. RESPIRATORY: Positive bilateral wheezes. Positive bilateral rhonchi. ABDOMEN: Soft, nontender, nondistended. Bowel sounds present. No rebound. No guarding. EXTREMITIES: Trace pitting edema bilaterally. No sign of cyanosis. LABORATORY DATA: WBC is 14, hemoglobin 11.1, hematocrit 35.3, platelet count is 231. Sodium is 133, potassium 5.5, chloride is 95, carbon dioxide 25, BUN 76, creatinine is 3.32, GFR is 19.3, fasting glucose 136, calcium is 8.3, C-reactive protein 0.44. ASSESSMENT AND PLAN: 1. Acute on chronic hypoxic respiratory failure, most likely secondary to congestive heart failure (CHF) exacerbation and methicillin-sensitive Staphylococcus aureus (MSSA) lung infection. The patient also has a chronic pulmonary embolism (PE). The patient also tested positive for respiratory Syncytial virus (RSV). Initially, the patient required bilevel positive airway pressure (BiPAP), tapering down to Ventimask and now patient is able to maintain satisfactory oxygen with two liters nasal cannula. At baseline, the patient requires three liters nasal cannula at home. The patient's C-reactive protein (CRP) and white count has been improving on the Zosyn. The patient is on Eliquis for the chronic PE. The patient is also on vancomycin for the MSSA lung infection. 2. Chronic pulmonary embolism, on Eliquis. No sign of acute bleeding. 3. History of RSV, on supportive care. 4. End-stage renal disease, on hemodialysis. The patient's dialysis day is Friday, and Friday. The patient will go for hemodialysis today. Appreciate Dr. Sanabria's assistance. 5. Hypertension. Continue to monitor. 6. Acute chronic obstructive pulmonary disease (COPD) exacerbation. Currently, the patient only requires two liters nasal cannula to maintain satisfactory oxygen saturations. The patient continues to have bilateral wheezes. The patient is on nebulizer and tapering steroid dose. 7. Benign prostatic hypertrophy (BPH), on home medications. 8. Diabetes, on insulin and sliding scale. 9. Obstructive sleep apnea (ANKITA), on continuous positive airway pressure (CPAP). 10. Deep vein thrombosis (DVT) prophylaxis. The patient is on Eliquis.
[2016-04-30 20:00] VITALS: BP 162/70
[2016-04-30] MEDS: LEVEMIR (INSULIN DETEMIR) 1 UNITS/0.01ML SC SCH (21:46)
[2016-04-30] MEDS: TERAZOSIN 5 MG CAP PO SCH (21:47)
[2016-04-30] MEDS: SIMVASTATIN 20 MG TAB PO SCH (21:48)
[2016-04-30] MEDS: VANCOMYCIN HCL 1,000 MG, VIAL MATE ADAPTER 1 EACH in D5W 250 ML IV SCH (21:49)
[2016-05-01] VITALS: BP 154/56
[2016-05-01] MEDS: SODIUM CHLORIDE HYPERTONIC 3% 15ML NEB SOL INH SCH ×7 (00:47→23:23)
[2016-05-01] MEDS: IPRATROPIUM 0.5MG/ALBUTEROL 2.5MG INH SOL UD 3ML (DUONEB)(J7620) NEB SCH ×7 (00:47→23:23)
[2016-05-01 04:00] VITALS: BP 174/78
[2016-05-01 05:47] LABS: BASO % 0.1 % (0.0-1.0); EOS % 0.1 % (0.0-3.0); LARGE UNSTAINED CELL % 0.3 % (0.0-4.0); LYMPH # 0.3 K/mm3 (1.5-4.5); LYMPH % 2.3 % (24.0-44.0); MEAN CORPUSCULAR HEMOGLOBIN 27.2 pg (27.0-33.0); MEAN CORPUSCULAR HGB CONC 30.9 g/dl (32.0-36.5); MONO # 0.3 K/mm3 (0.0-0.8); MONO % 2.1 % (0.0-5.0); NEUTROPHILS # 13.9 K/mm3 (1.8-7.7); NEUTROPHILS % 95.1 % (36.0-66.0); PLATELET COUNT, AUTOMATED 214 k/mm3 (150-450); RED CELL DISTRIBUTION WIDTH 18.4 % (11.5-14.5); WHITE BLOOD COUNT 14.6 K/mm3 (4.0-10.0)
[2016-05-01] MEDS: SLF 3 ML SYR IV SCH ×3 (06:05→20:51)
[2016-05-01] MEDS: ISOSORBIDE DIN. (ISORDIL) 20 MG TAB PO SCH ×3 (06:05→17:33)
[2016-05-01 06:52] LABS: CREATININE FOR GFR 2.1 MG/DL (0.70-1.30); GLOMERULAR FILTRATION RATE 32.8 (>42); POTASSIUM SERUM 4.5 MEQ/L (3.5-5.1)
[2016-05-01 08:00] VITALS: BP 140/58
[2016-05-01] MEDS: MIRALAX *UNIT DOSE* 17GM PACKET PO SCH (08:28)
[2016-05-01] MEDS: MULTIVITAMINS/MINERALS THERAP 1 TAB PO SCH (08:28)
[2016-05-01] MEDS: HumaLOG INSULIN (NovoLOG) PER UNIT SC SCH ×4 (08:28→20:50)
[2016-05-01] MEDS: cloNIDine 0.1 MG TAB PO SCH ×3 (08:29→20:49)
[2016-05-01] MEDS: PANTOPRAZOLE 40MG TAB (PROTONIX) PO SCH (08:29)
[2016-05-01] MEDS: guaiFENesin ER 600 MG TAB PO SCH ×2 (08:29→20:50)
[2016-05-01] MEDS: ASPIRIN 81 MG ENTERIC TAB PO SCH (08:29)
[2016-05-01] MEDS: ESCITALOPRAM OXALATE 10 MG TAB (LEXAPRO) PO SCH (08:29)
[2016-05-01] MEDS: SENOKOT S TAB PO SCH ×2 (08:29→20:50)
[2016-05-01] MEDS: APIXABAN 5 MG TAB (ELIQUIS) PO SCH ×2 (08:29→20:49)
[2016-05-01] MEDS: VITAMIN D 1,000 INTERNATIONAL UNITS TABLET PO SCH (08:30)
[2016-05-01] MEDS: LABETALOL 100 MG TAB PO SCH ×2 (08:30→20:48)
[2016-05-01] MEDS: PIPERACILLIN/TAZOBACTAM SOD 2.25 GM in D5W MINI-BAG PLUS 50 ML IV SCH ×2 (08:30→16:28)
[2016-05-01] MEDS: **hydrALAZINE** 50 MG TAB PO SCH ×3 (08:30→20:49)
[2016-05-01] MEDS: FERROUS SULFATE 325MG TAB PO SCH (08:30)
[2016-05-01] MEDS: TIOTROPIUM INHALER/CAPSULE (SPIRIVA) INH SCH (08:46)
[2016-05-01] MEDS: SYMBICORT 160/4.5MCG INHALER 6GM INH SCH ×2 (08:46→20:56)
[2016-05-01] MEDS: predniSONE 20 MG TAB PO SCH ×2 (10:21→20:50)
--- NOTE | 2016-05-01 11:39 | REP ---
PORTABLE CHEST: AP portable view of the chest is performed and compared to prior studies, most recent of which is 04/26/2016. There appears to be mild bibasilar fibrotic change. There is no acute infiltrate or pulmonary edema. Cardiac silhouette is slightly prominent. Mediastinal silhouette is unchanged. Right central venous catheter is again noted. IMPRESSION: Stable exam with no evidence of acute pulmonary disease. Signed by Jhony Shabazz MD 05/01/2016 05:21 P
[2016-05-01 12:00] VITALS: BP 142/58
[2016-05-01] MEDS: LORazepam 0.5 MG TAB PO PRN ×2 (15:23→20:48)
[2016-05-01 16:00] VITALS: BP 142/60
[2016-05-01] MEDS: CHECK TO SEE IF PATIENT IS RECEIVING DIALYSIS TODAY AND REFER TO THE VANCOMYCIN ORDER XX SCH (16:00)
--- NOTE | 2016-05-01 18:07 | IPN ---
DATE: 05/01/2016 Mr. Snyder is seen this morning on his bedside. He remains very weak, and nursing staff report that he has been dependent on Ventura lift for transfers. The patient does not even get up in the bed. He is lying mostly in the bed and continues to be oxygen dependent. He has no fever or chills. PHYSICAL EXAMINATION: Temperature 97 degrees Fahrenheit, heart rate 60 per minute, respiratory rate 24 per minute, blood pressure 142/58 mm of mercury, and oxygen saturation 95%. Head is atraumatic. Ears, nose, and throat are unremarkable. Right-sided internal jugular vein dialysis catheter is in place. Neck is supple and without jugular venous distention (JVD) or thyroid enlargement. Heart sounds are regular. Lungs have diminished breath sounds and rhonchi bilaterally. Abdomen is soft and nontender. Bowel sounds are normal. Extremities have no cyanosis or clubbing. Skin has no rash or ulcers. Neurologically, he is at his baseline mentation and without a focal deficit. Today's labs show WBC count 14.6, hemoglobin 10.3, and hematocrit 33.5. Sodium 135, potassium 4.5. BUN 37 and creatinine 2.10. PROBLEMS: 1. End-stage renal disease. The patient was dialyzed yesterday. We will plan to dialyze him again tomorrow. At this point, there is no emergent indication for dialysis today. His volume status is well compensated. 2. Hyperkalemia, improved with hemodialysis yesterday. We will continue to monitor his electrolytes closely. 3. Hyponatremia. Sodium level also improved slightly with hemodialysis yesterday. We anticipate further improvement with dialysis tomorrow. His sodium was 130 on April 29, which improved to 133 on and is up to 135 today. 4. Anemia. His anemia has been stable, and he has not required a transfusion. We will continue to manage his anemia with Aranesp during dialysis. 5. Generalized weakness and deconditioning. This is related to his recent worsening respiratory status with viral infection. The patient will require subacute rehabilitation. 6. Chronic hypoxemia and dyspnea. His volume status is well compensated, and chronic hypoxemia and dyspnea are related to his chronic lung disease with superimposed respiratory viral infection.
--- NOTE | 2016-05-01 18:08 | IPN ---
DATE: 05/01/2016 SUBJECTIVE: The patient is seen and examined in the room today. The patient stated he finished dialysis yesterday around 6 p.m., then he felt extremely exhausted after dialysis and he could not regain the energy in the last several hours. He does experience similar severe fatigue and exhaustion after dialysis but it is not frequent, and this currently is much worse than before. Otherwise, he also had an episode of nose bleed, resolved. Still requires oxygen supplement. The patient feels he has not returned to his baseline. OBJECTIVE: VITAL SIGNS: Temperature is 96.8, pulse is 59, respirations 24, blood pressure 140.58, pulse oximetry 97% with three liters nasal cannula. GENERAL: Fatigued. No sign of acute distress. Alert and oriented times three. HEENT: Dried blood near the nostril. No active bleeding. Normocephalic, atraumatic. Extraocular motor grossly intact. CARDIOVASCULAR: Positive S1, S2. Regular rate. LUNGS: Bilateral wheezes, bilateral rhonchi. ABDOMEN: Soft, nontender, nondistended. Bowel sounds present. No rebound, no guarding. EXTREMITIES: No edema, no sign of cyanosis. LABORATORY DATA: WBC is 14.6, hemoglobin is 10.3, hematocrit 33.5, platelet count 214. Sodium is 135, potassium 4.5, chloride 99, carbon dioxide 29, BUN 37, creatinine 2.1, GFR 32.8, fasting glucose 123, calcium 8. C-reactive protein is 0.56. IMAGING: Chest x-ray showed stable exam with no evidence of new pulmonary disease. ASSESSMENT AND PLAN: 1. Respiratory failure secondary to congestive heart failure (CHF) exacerbation, methicillin-sensitive Staphylococcus aureus (MSSA) lung infection, and respiratory syncytial virus (RSV) infection. The patient also has a history of pulmonary embolism (PE). Initially the patient required bilevel positive airway pressure (BiPAP) and was trended down to Ventimask. Currently the patient continues to require 2-3 liters nasal cannula, which is close to the patient's baseline. C-reactive protein continues to trend down with Zosyn. The patient is on Eliquis. The patient is also taking vancomycin for MSSA lung infection. 2. Chronic pulmonary embolism (PE) on Eliquis. 3. Epistaxis, bleeding resolved. No recurrence. 4. History of respiratory syncytial virus (RSV), on supportive care. 5. End-stage renal disease on hemodialysis. Dialysis days are Friday, , and Friday. We appreciate Dr. Sanabria's assistance. 6. Hypertension. Continue to monitor. 7. Acute on chronic obstructive pulmonary disease (COPD) exacerbation. The patient still has wheezes. Continue nebulizer. The patient is on tapering steroid dose. 8. Benign prostatic hypertrophy (BPH), on home medication. 9. Diabetes, on insulin sliding scale and consistent carbohydrate diet. 10. Obstructive sleep apnea (ANKITA), on Continuous positive airway pressure (CPAP). 11. Deep venous thrombosis (DVT) prophylaxis. The patient is on Eliquis.
[2016-05-01] MEDS: LEVEMIR (INSULIN DETEMIR) 1 UNITS/0.01ML SC SCH (20:47)
[2016-05-01] MEDS: TERAZOSIN 5 MG CAP PO SCH (20:48)
[2016-05-01] MEDS: SIMVASTATIN 20 MG TAB PO SCH (20:52)
[2016-05-02 01:01] VITALS: BP 150/68
[2016-05-02] MEDS: PIPERACILLIN/TAZOBACTAM SOD 2.25 GM in D5W MINI-BAG PLUS 50 ML IV SCH ×2 (01:01→06:02)
[2016-05-02] MEDS: LORazepam 0.5 MG TAB PO PRN ×5 (01:02→20:59)
[2016-05-02 04:00] VITALS: BP 164/75
[2016-05-02] MEDS: IPRATROPIUM 0.5MG/ALBUTEROL 2.5MG INH SOL UD 3ML (DUONEB)(J7620) NEB SCH ×6 (04:14→23:30)
[2016-05-02] MEDS: SODIUM CHLORIDE HYPERTONIC 3% 15ML NEB SOL INH SCH ×4 (04:14→15:23)
[2016-05-02 05:57] LABS: BASO % 0.1 % (0.0-1.0); EOS % 0.1 % (0.0-3.0); LARGE UNSTAINED CELL % 0.2 % (0.0-4.0); LYMPH # 0.2 K/mm3 (1.5-4.5); LYMPH % 1.6 % (24.0-44.0); MEAN CORPUSCULAR HEMOGLOBIN 27.1 pg (27.0-33.0); MEAN CORPUSCULAR HGB CONC 30.8 g/dl (32.0-36.5); MEAN CORPUSCULAR VOLUME 88.3 fl (80.0-96.0); MONO # 0.3 K/mm3 (0.0-0.8); MONO % 2.3 % (0.0-5.0); NEUTROPHILS # 13.2 K/mm3 (1.8-7.7); NEUTROPHILS % 95.7 % (36.0-66.0); PLATELET COUNT, AUTOMATED 178 k/mm3 (150-450); RED CELL DISTRIBUTION WIDTH 18.4 % (11.5-14.5); WHITE BLOOD COUNT 13.8 K/mm3 (4.0-10.0)
[2016-05-02] MEDS: SLF 3 ML SYR IV SCH ×3 (06:00→21:01)
[2016-05-02] MEDS: VITAMIN D 1,000 INTERNATIONAL UNITS TABLET PO SCH (06:00)
[2016-05-02] MEDS: ESCITALOPRAM OXALATE 10 MG TAB (LEXAPRO) PO SCH (06:00)
[2016-05-02] MEDS: SENOKOT S TAB PO SCH ×2 (06:01→20:59)
[2016-05-02] MEDS: predniSONE 20 MG TAB PO SCH ×2 (06:01→20:59)
[2016-05-02] MEDS: PANTOPRAZOLE 40MG TAB (PROTONIX) PO SCH (06:01)
[2016-05-02] MEDS: guaiFENesin ER 600 MG TAB PO SCH ×2 (06:01→21:00)
[2016-05-02] MEDS: ASPIRIN 81 MG ENTERIC TAB PO SCH (06:02)
[2016-05-02] MEDS: APIXABAN 5 MG TAB (ELIQUIS) PO SCH ×2 (06:02→21:00)
[2016-05-02] MEDS: FERROUS SULFATE 325MG TAB PO SCH (06:03)
[2016-05-02] MEDS: MULTIVITAMINS/MINERALS THERAP 1 TAB PO SCH (06:03)
[2016-05-02] MEDS: ISOSORBIDE DIN. (ISORDIL) 20 MG TAB PO SCH ×3 (06:03→17:32)
[2016-05-02] MEDS: cloNIDine 0.1 MG TAB PO SCH ×3 (06:04→21:00)
[2016-05-02] MEDS: **hydrALAZINE** 50 MG TAB PO SCH ×3 (06:04→21:00)
[2016-05-02 06:10] LABS: CREATININE FOR GFR 2.85 MG/DL (0.70-1.30); POTASSIUM SERUM 4.9 MEQ/L (3.5-5.1)
[2016-05-02] MEDS: MIRALAX *UNIT DOSE* 17GM PACKET PO SCH (06:10)
[2016-05-02] MEDS: TIOTROPIUM INHALER/CAPSULE (SPIRIVA) INH SCH (07:38)
[2016-05-02] MEDS: SYMBICORT 160/4.5MCG INHALER 6GM INH SCH ×2 (07:38→21:23)
[2016-05-02 08:00] VITALS: BP 148/56
[2016-05-02] MEDS: HumaLOG INSULIN (NovoLOG) PER UNIT SC SCH ×4 (08:01→20:44)
[2016-05-02] MEDS: LABETALOL 100 MG TAB PO SCH ×2 (08:01→20:59)
[2016-05-02] MEDS ORDERED: ALBUTEROL SULFATE 2.5 MG/0.5 ML INH NEB SOLN INH SCH (09:00)
[2016-05-02] MEDS: FLUCONAZOLE 100 MG TAB PO SCH (10:04)
[2016-05-02] MEDS: methylPREDNISolone INJ 40 MG/1 ML VIAL (J2920) IV SCH ×2 (10:04→21:01)
[2016-05-02] MEDS ORDERED: PRED20TA PO (10:23)
[2016-05-02] MEDS ORDERED: ELIQ5TAB PO (10:23)
[2016-05-02 14:52] VITALS: BP 180/82
[2016-05-02] MEDS: CHECK TO SEE IF PATIENT IS RECEIVING DIALYSIS TODAY AND REFER TO THE VANCOMYCIN ORDER XX SCH (15:13)
[2016-05-02] MEDS: TERAZOSIN 5 MG CAP PO SCH (21:00)
[2016-05-02] MEDS: SIMVASTATIN 20 MG TAB PO SCH (21:00)
[2016-05-02] MEDS: LEVEMIR (INSULIN DETEMIR) 1 UNITS/0.01ML SC SCH (21:01)
--- NOTE | 2016-05-02 21:35 | IPN ---
DATE: 05/02/2016 SUBJECTIVE: Patient seen and examined in the room today. Previously patient felt extremely exhausted and weak after dialysis. In the next 1-2 days, patient stated he recovered well. He started to regain more strength, almost approaching his baseline. He has been on his baseline oxygen supply, which is about 2 liters nasal cannula. Denies any fever. Patient still has a cough, which patient has been using Acapella, and he thinks that it helps him to bring up the sputum. The sputum is white. OBJECTIVE: VITAL SIGNS: Temperature is 96.2, pulse is 66, respiration rate 20, blood pressure is 148/56, pulse oximetry 100% with 2 liters nasal cannula. GENERAL: No sign of acute distress. Alert and oriented times three. HEENT: Normocephalic, atraumatic. Extraocular motor intact. CARDIOVASCULAR: Positive S1, S2, regular rate. LUNGS: Bilateral wheezes. No crackles. ABDOMEN: Soft, nontender, nondistended. Bowel sounds present. No rebound. No guarding. EXTREMITIES: No edema. No sign of cyanosis. LABORATORY DATA: WBC is 13.8, hemoglobin 10.6, hematocrit 34.5, platelet count is 176. Sodium is 135, potassium 4.9, chloride is 99, carbon dioxide is 24, BUN is 58, creatinine is 2.85, GFR s 23, fasting glucose 122, calcium is 8, C-reactive protein is 0.72. ASSESSMENT AND PLAN: 1. Respiratory failure secondary to congestive heart failure (CHF) exacerbation, methicillin-sensitive Staphylococcus aureus (MSSA) lung infection, and respiratory syncytial virus (RSV) infection. Patient also has a history of pulmonary embolism. Patient had finished courses of antibiotics for his lung infection. Patient's C-reactive protein (CRP) is trending down nicely with antibiotics. Patient has chronic obstructive pulmonary disease (COPD) exacerbation from all the contributing factors. Patient has been using steroids that cause elevation of white count, but clinically patient's breathing is approaching his baseline. Initially, patient needed bilevel positive airway pressure (BiPAP) to maintain satisfactory oxygen saturation with the Venturi mask and now patient is only requiring 2 liters nasal cannula, which his about patient's baseline. Patient is taking Eliquis for the history if PE. 2. Chronic pulmonary embolism, on Eliquis. 3. History of RSV, on supportive are. 4. End-stage renal disease, on hemodialysis. We appreciate Dr. Sanabria's assistance. 5. Hypertension. 6. Acute on chronic COPD exacerbation. Patient's breathing is approaching his baseline. Patient is on tapered steroid dose, which due to the high-dose steroid use, patient has elevated white count at this moment, but clinically patient's breathing has almost returned to his baseline. 7. Benign prostatic hypertrophy, on home medications. 8. Diabetes, on sliding scale and consistent-carbohydrate diet. 9. Obstructive sleep apnea (ANKITA), on CPAP. 10. Deep vein thrombosis (DVT) prophylaxis, on Eliquis. DISPOSITION: Today, patient was determined medically stable for discharge. Patient's breathing is approach his baseline. The weakness for the last dialysis has shown significant improvement; however, the staff is concerned about elevated white count; therefore, patient is not returning to [facility] at this moment. Will continue to monitor in the medical/surgical floor.
[2016-05-02 22:00] VITALS: BP 150/80
[2016-05-03] MEDS: LORazepam 0.5 MG TAB PO PRN ×2 (01:03→06:08)
[2016-05-03] MEDS: IPRATROPIUM 0.5MG/ALBUTEROL 2.5MG INH SOL UD 3ML (DUONEB)(J7620) NEB SCH ×2 (03:32→08:00)
[2016-05-03 06:00] VITALS: BP 148/70
[2016-05-03] MEDS: MIRALAX *UNIT DOSE* 17GM PACKET PO SCH (06:07)
[2016-05-03 06:08] VITALS: BP 148/70
[2016-05-03] MEDS: LABETALOL 100 MG TAB PO SCH (06:08)
[2016-05-03] MEDS: methylPREDNISolone INJ 40 MG/1 ML VIAL (J2920) IV SCH (06:08)
[2016-05-03] MEDS: SLF 3 ML SYR IV SCH (06:08)
[2016-05-03] MEDS: **hydrALAZINE** 50 MG TAB PO SCH (06:09)
[2016-05-03] MEDS: FLUCONAZOLE 100 MG TAB PO SCH (06:09)
[2016-05-03] MEDS: ESCITALOPRAM OXALATE 10 MG TAB (LEXAPRO) PO SCH (06:09)
[2016-05-03] MEDS: predniSONE 20 MG TAB PO SCH (06:09)
[2016-05-03] MEDS: FERROUS SULFATE 325MG TAB PO SCH (06:09)
[2016-05-03] MEDS: cloNIDine 0.1 MG TAB PO SCH (06:09)
[2016-05-03] MEDS: APIXABAN 5 MG TAB (ELIQUIS) PO SCH (06:09)
[2016-05-03] MEDS: MULTIVITAMINS/MINERALS THERAP 1 TAB PO SCH (06:10)
[2016-05-03] MEDS: ASPIRIN 81 MG ENTERIC TAB PO SCH (06:10)
[2016-05-03] MEDS: VITAMIN D 1,000 INTERNATIONAL UNITS TABLET PO SCH (06:10)
[2016-05-03] MEDS: SENOKOT S TAB PO SCH (06:10)
[2016-05-03] MEDS: PANTOPRAZOLE 40MG TAB (PROTONIX) PO SCH (06:10)
[2016-05-03] MEDS: ISOSORBIDE DIN. (ISORDIL) 20 MG TAB PO SCH (06:10)
[2016-05-03] MEDS: guaiFENesin ER 600 MG TAB PO SCH (06:10)
[2016-05-03 07:15] LABS: CALCIUM LEVEL 7.6 MG/DL (8.8-10.2); CREATININE FOR GFR 3.15 MG/DL (0.70-1.30); GLOMERULAR FILTRATION RATE 20.5 (>42)
[2016-05-03] MEDS: HumaLOG INSULIN (NovoLOG) PER UNIT SC SCH (07:15)
[2016-05-03 07:17] LABS: POTASSIUM SERUM 5.2 MEQ/L (3.5-5.1)
[2016-05-03 07:26] LABS: BASO % 0.3 % (0.0-1.0); EOS % 0.1 % (0.0-3.0); LARGE UNSTAINED CELL # 0.1 K/mm3 (0.0-0.4); LARGE UNSTAINED CELL % 0.5 % (0.0-4.0); LYMPH # 0.2 K/mm3 (1.5-4.5); LYMPH % 1.5 % (24.0-44.0); MEAN CORPUSCULAR HEMOGLOBIN 27.2 pg (27.0-33.0); MEAN CORPUSCULAR HGB CONC 30.5 g/dl (32.0-36.5); MEAN CORPUSCULAR VOLUME 89.2 fl (80.0-96.0); MONO # 0.3 K/mm3 (0.0-0.8); MONO % 2.2 % (0.0-5.0); NEUTROPHILS % 95.5 % (36.0-66.0); PLATELET COUNT, AUTOMATED 175 k/mm3 (150-450); RED CELL DISTRIBUTION WIDTH 18.8 % (11.5-14.5); WHITE BLOOD COUNT 11.5 K/mm3 (4.0-10.0)
[2016-05-03] MEDS: SYMBICORT 160/4.5MCG INHALER 6GM INH SCH (08:10)
[2016-05-03] MEDS: TIOTROPIUM INHALER/CAPSULE (SPIRIVA) INH SCH (08:10)
--- NOTE | 2016-05-03 21:24 | DSES ---
DATE OF ADMISSION: 04/20/2016 DATE OF DISCHARGE: 05/03/2016 Patient is a [facility] resident. CONSULTANTS: Alteration Worker, Dr. Peng and Dr. Sanabria PROCEDURES: None. COMPLICATIONS: None. ADMISSION/DISCHARGE DIAGNOSES: 1. Respiratory failure secondary to congestive heart failure, methicillin-sensitive Staphylococcus aureus lung infection, respiratory syncytial virus infection, chronic obstructive pulmonary disease exacerbation. 2. Grade 1 diastolic congestive heart failure. 3. Respiratory syncytial virus infection. 4. Methicillin-sensitive Staphylococcus aureus lung infection. 5. Chronic pulmonary embolism on Eliquis. 6. End-stage renal disease, on hemodialysis. 7. Hypertension. 8. Acute on chronic obstructive pulmonary disease exacerbation. 9. Benign prostatic hypertrophy. 10. Diabetes. 11. Obstructive sleep apnea, on continuous positive airway pressure. 12. History of pulmonary embolism. HOSPITALIZATION COURSE: Patient is a 75-year-old male who was brought to [facility] from [facility] on 04/20/2016 for acute respiratory failure. Cultures and respiratory panel were ordered. Respiratory came back positive for respiratory syncytial virus (RSV), and patient showed some sign of fluid overload. Patient was started on nebulizer treatments and intravenous (IV) steroids. The guest request runner was consulted for the patient's dialysis. Later, sputum culture came back positive for Staphylococcus aureus and yeast-like organism. The patient was started on IV vancomycin and fluconazole. Initially patient's respiratory status was so severe that it required bilevel positive airway pressure (BiPAP). With treatment, patient was able to wean off to Venturi mask. Within a few days, patient was able to wean off the oxygen to nasal cannula. Patient's respiratory status continued to improve gradually; however, in the beginning of May, patient had hemodialysis, and he felt extremely exhausted after the session. He was not able to maintain his activity function; therefore, patient was monitored in the medical/surgical floor. Patient recovered nicely with a conservative approach, and on 05/03/2016 patient is medically stable for discharge with recommendation to resume his regular hemodialysis in the outpatient setting. During hospitalization state, CT angiogram was performed. There was a pulmonary embolism, and patient was started on Eliquis. OBJECTIVE: VITAL SIGNS: Temperature is 96.9, pulse is 67, respirations 17, blood pressure is 148/70, pulse oximetry 95% with 2 liters nasal cannula. LABORATORY DATA: WBC 11.5, hemoglobin is 10.1, hematocrit 33.2, platelet count is 175. Sodium is 133, potassium 5.2, chloride is 99, carbon dioxide 24, BUN 72, creatinine is 3.15, GFR is 20.5, fasting glucose 137, calcium is 7.6, C-reactive protein 0.39 (initially it was 9.52). Microbiology: Blood cultures are negative after 5 days. Respiratory viral panel showed positive for RSV. Sputum cultures showed positive for Staphylococcus aureus and yeast-like organism. IMAGING STUDIES: On admission, chest x-ray showed chronic changes. No obvious focal consolidation, effusion, or pneumothorax. Later, repeated chest x-ray showed pulmonary venous congestion, compatible with congestive heart failure (CHF). CT angiogram of the chest on 04/23/2016 showed tiny probability of chronic pulmonary embolism in the peripheral pulmonary artery to the posterior basal segment of the lower lobes. Probable small amount of ascites adjacent to the spleen. DISCHARGE MEDICATIONS: - Eliquis 5 mg by mouth twice a day - prednisone on tapering dose - Tylenol 650 mg by mouth every 4 hours as needed - albuterol 2.5 mg inhalation three times a day - aspirin 81 mg by mouth daily - bisacodyl 10 mg every day as needed for constipation - Symbicort two puff inhalation twice a day - clonidine 0.5 mg by mouth twice a day - Plavix 75 mg by mouth at bedtime - diphenhydramine 25 mg by mouth at bedtime as needed for insomnia - senna-S one tablet by mouth twice a day - enema per rectal daily as needed for constipation - Ensure 120 by mouth three times a day - Lexapro 10 mg by mouth daily - ferrous sulfate 325 mg by mouth twice a day - hydralazine 100 mg by mouth three times a day - insulin 5 units subcutaneous twice a day - insulin Lantus 36 units subcutaneous at bedtime - isosorbide mononitrate 20 mg by mouth three times a day - labetalol 300 mg by mouth twice a day - lorazepam 0.5 mg by mouth every 6 hours as needed for anxiety - multivitamin one tablet by mouth daily - Protonix 40 mg by mouth daily - polyethylene glycol one package by mouth daily - simvastatin 20 mg by mouth at bedtime - terazosin 5 mg by mouth at bedtime - Spiriva inhalation daily - vitamin D3 at 1000 units by mouth daily DISCHARGE INSTRUCTIONS: Discontinue line. Discharge to [facility]. Activity as tolerated. Consistent-carbohydrate diet as tolerated. Patient should followup with his primary care provider in one week. DISCHARGE CONDITION: Stable. DISCHARGE TIME: Greater than 30 minutes.
== END 2016-05-03 10:18 | DRG 189 ==
LOC: M ED 09:24 → M ED INP 14:34 → M ICU 22:54 → M PCU 04-22 22:43 → M MSPAV 05-02 14:26
PROVIDERS: ADMIT Internal Medicine; ATTEND Internal Medicine
PROC: 5A1D60Z (ICD-10-PCS; principal; 2016-04-20)
DX: J96.21 Acute and chronic respiratory failure with hypoxia (principal); N18.6 End stage renal disease; J44.0 Chronic obstructive pulmonary disease with (acute) lower respiratory infection; I13.2 Hypertensive heart and chronic kidney disease with heart failure and with stage 5 chronic kidney disease, or end stage renal disease; I50.32 Chronic diastolic (congestive) heart failure; I27.82 Chronic pulmonary embolism; E87.1 Hypo-osmolality and hyponatremia; M10.9 Gout, unspecified; I25.2 Old myocardial infarction; E11.22 Type 2 diabetes mellitus with diabetic chronic kidney disease; E66.9 Obesity, unspecified; D63.1 Anemia in chronic kidney disease; N40.0 Benign prostatic hyperplasia without lower urinary tract symptoms; G47.33 Obstructive sleep apnea (adult) (pediatric); K21.9 Gastro-esophageal reflux disease without esophagitis; K29.70 Gastritis, unspecified, without bleeding; E78.5 Hyperlipidemia, unspecified; Z90.49 Acquired absence of other specified parts of digestive tract; Z79.52 Long term (current) use of systemic steroids; Z96.653 Presence of artificial knee joint, bilateral; Z87.891 Personal history of nicotine dependence; Z79.01 Long term (current) use of anticoagulants; Z99.2 Dependence on renal dialysis; Z99.81 Dependence on supplemental oxygen; Z79.82 Long term (current) use of aspirin; Z79.84 Long term (current) use of oral hypoglycemic drugs; Z79.4 Long term (current) use of insulin; Z79.899 Other long term (current) drug therapy; Z68.29 Body mass index [BMI] 29.0-29.9, adult; Z79.02 Long term (current) use of antithrombotics/antiplatelets; E86.0 Dehydration; B97.4 Respiratory syncytial virus as the cause of diseases classified elsewhere; R04.0 Epistaxis; E87.5 Hyperkalemia

== ENCOUNTER → 2016-06-05 | Outpatient (REF) | payer MEDICAID, MEDICARE, OTHER ==
[~2016-06-05] MED LIST changes: +ACET65SU PR; +ATIV2TAB PO; +BISA10SU4 PR; +CLON-412 PO; +ELIQ5TAB PO; +ENEMENE6 PR; +ENSULIQ64 PO; +GUAISYP5 PO; +INSUHUMDS SC; +IPRASOL4 INH; +LABE30TA PO; +LEVA750T PO; +LEXA1TAB PO; +LORA-376 PO; +LORA2TAB9 PO; +MIRA33504 PO; +MIRT15TA3 PO; +PLAV75TA38 PO; +PRED20TA PO; +SALI0.652; +SENN8.6T54 PO; +VITA100066 PO
== END ==
LOC: SKLAB7 10:05
PROVIDERS: ATTEND Family Medicine
DX: R06.02 Shortness of breath (principal)

== ENCOUNTER 2016-06-26 20:44 | Emergency (ER) | payer MEDICARE, MEDICAID ==
[~2016-06-26 20:44] MED LIST changes: -CLON-412 PO; -IPRASOL4 INH; -LABE30TA PO; -LEVA750T PO; -LORA2TAB9 PO; -MIRA33504 PO; -MIRT15TA3 PO; -SALI0.652; -VITA100066 PO
[2016-06-26] MEDS ORDERED: IPRATROPIUM 0.5MG/ALBUTEROL 2.5MG INH SOL UD 3ML (DUONEB)(J7620) NEB ONE (21:30)
[2016-06-26] MEDS ORDERED: methylPREDNISolone INJ 125 MG/2 ML VIAL (J2930) IV ONE (21:30)
[2016-06-26] MEDS ORDERED: PERCOCET 5MG/325MG TAB PO ONE (22:00)
[2016-06-26 22:02] LABS: VENOUS BASE EXCESS 4.5 (-2.0-2.0); VENOUS O2 SATURATION 90.5 % (60.0-80.0); VENOUS PARTIAL PRESSURE O2 56.9 mmHg (30.0-50.0); VENOUS STANDARD HCO3 28.4 MEQ/L; VENOUS TOTAL CO2 29.9 MEQ/L (24.0-28.0)
[2016-06-26 22:03] LABS: ADD MORPHOLOGY? YES; BASO % 0.2 % (0.0-1.0); EOS # 0.2 K/mm3 (0.0-0.50); EOS % 0.9 % (0.0-3.0); LARGE UNSTAINED CELL # 0.1 K/mm3 (0.0-0.4); LARGE UNSTAINED CELL % 0.5 % (0.0-4.0); LYMPH # 0.8 K/mm3 (1.5-4.5); LYMPH % 3.9 % (24.0-44.0); MEAN CORPUSCULAR HEMOGLOBIN 27.2 pg (27.0-33.0); MEAN CORPUSCULAR HGB CONC 29.3 g/dl (32.0-36.5); MEAN CORPUSCULAR VOLUME 92.7 fl (80.0-96.0); MONO # 0.6 K/mm3 (0.0-0.8); MONO % 3.3 % (0.0-5.0); NEUTROPHILS # 17.4 K/mm3 (1.8-7.7); NEUTROPHILS % 91.2 % (36.0-66.0); PLATELET COUNT, AUTOMATED 568 k/mm3 (150-450); RED CELL DISTRIBUTION WIDTH 17.8 % (11.5-14.5); WHITE BLOOD COUNT 19.1 K/mm3 (4.0-10.0)
[2016-06-26 22:21] VITALS: O2SAT 94
[2016-06-26 22:26] LABS: ANISOCYTOSIS 1+; HYPOCHROMASIA 2+; POLYCHROMASIA 1+
[2016-06-26 22:32] LABS: CALCIUM LEVEL 8.8 MG/DL (8.8-10.2); CREATININE FOR GFR 2.18 MG/DL (0.70-1.30); GLOMERULAR FILTRATION RATE 31.4 (>42); POTASSIUM SERUM 3.9 MEQ/L (3.5-5.1)
[2016-06-26 23:50] VITALS: BP 126/78
--- NOTE | 2016-06-27 09:14 | REP ---
PORTABLE CHEST: Single portable view of the chest was performed. There is cardiomegaly. I suspect infiltrate/atelectasis in the left lung base in the retrocardiac region as there is nonvisualization of the left hemidiaphragm with increased density in that region. Somewhat elliptical opacity in the right lung at the level of the hilum probably represents fluid in a fissure with probable small right effusion. There is calcification of the thoracic aorta. Mediastinal silhouette is unchanged. Right central venous catheter is noted. IMPRESSION: Left basilar atelectasis/infiltrate. I suspect a small right effusion with fluid in a fissure at the level of the hilum. Signed by Jhony Shabazz MD 06/27/2016 04:48 P
--- NOTE | 2016-06-27 09:27 | ECGEPIP ---
Stationary ECG Study [facility] - ED Test Date: 2016-06-26 Pat Name: DANDRE HUSSEIN Department: Room: - Gender: M Vat Packer: celeste : [id number] Requested By: EBEN Monique Order Number: [id number] Reading MD: Jazmyn Tavarez Measurements Intervals Lafe Rate: 94 P: -9 MD: 165 QRS: -71 QRSD: 153 T: 40 QT: 399 QTc: 499 Interpretive Statements SINUS RHYTHM RIGHT BUNDLE BRANCH BLOCK LEFT ANTERIOR FASCICULAR BLOCK Electronically Signed On 06-27-2016 9:26:46 EDT by Jazmyn Tavarez
[2016-06-27] MEDS ORDERED: FERR325T PO (22:13)
[2016-06-27] MEDS ORDERED: CLON-412 PO (22:40)
[2016-06-27] MEDS ORDERED: HYDR-4266 PO (22:40)
[2016-06-27] MEDS ORDERED: ASPI81TAEC PO (22:40)
[2016-06-27] MEDS ORDERED: IPRASOL4 INH (22:40)
[2016-06-27] MEDS ORDERED: SYMB16INH INH (22:40)
[2016-06-27] MEDS ORDERED: MIRT15TA3 PO (22:40)
[2016-06-27] MEDS ORDERED: DIPH25CA PO (22:40)
[2016-06-27] MEDS ORDERED: VITA100066 PO (22:40)
[2016-06-27] MEDS ORDERED: LABE30TA PO (22:40)
[2016-06-27] MEDS ORDERED: MIRA33504 PO (22:40)
[2016-06-27] MEDS ORDERED: LORA2TAB9 PO (22:40)
[2016-06-27] MEDS ORDERED: PANT40TA2 PO (22:40)
[2016-06-27] MEDS ORDERED: VITMTA PO (22:40)
[2016-06-27] MEDS ORDERED: TERA5CA PO (22:40)
[2016-06-27] MEDS ORDERED: SALI0.652 (22:40)
[2016-06-27] MEDS ORDERED: ELIQ5TAB PO (22:40)
== END 2016-06-26 23:52 | disposition left against medical advice (07) ==
LOC: M ED 21:41
DX: R06.02 Shortness of breath (principal); D72.829 Elevated white blood cell count, unspecified; I45.10 Unspecified right bundle-branch block; I44.4 Left anterior fascicular block; E11.9 Type 2 diabetes mellitus without complications; J44.9 Chronic obstructive pulmonary disease, unspecified; I69.354 Hemiplegia and hemiparesis following cerebral infarction affecting left non-dominant side; N19 Unspecified kidney failure; Z99.2 Dependence on renal dialysis; Z99.81 Dependence on supplemental oxygen

== ENCOUNTER 2016-06-27 19:15 | Inpatient (IN) | payer MEDICARE, MEDICAID ==
[~2016-06-27] VITALS: Ht 185.4 cm; Wt 85.7 kg
[2016-06-27 21:09] LABS: ADD MORPHOLOGY? YES; BASO % 0.2 % (0.0-1.0); EOS % 0.3 % (0.0-3.0); LARGE UNSTAINED CELL # 0.1 K/mm3 (0.0-0.4); LARGE UNSTAINED CELL % 0.7 % (0.0-4.0); LYMPH % 5.8 % (24.0-44.0); MEAN CORPUSCULAR HEMOGLOBIN 27.2 pg (27.0-33.0); MEAN CORPUSCULAR HGB CONC 29.4 g/dl (32.0-36.5); MEAN CORPUSCULAR VOLUME 92.8 fl (80.0-96.0); MONO # 0.5 K/mm3 (0.0-0.8); NEUTROPHILS # 14.7 K/mm3 (1.8-7.7); PLATELET COUNT, AUTOMATED 546 k/mm3 (150-450); RED CELL DISTRIBUTION WIDTH 17.7 % (11.5-14.5); WHITE BLOOD COUNT 16.3 K/mm3 (4.0-10.0)
[2016-06-27 21:28] LABS: ABG BASE EXCESS 3.4 (-2.0-2.0); ABG HCO3 28.6 MEQ/L (22.0-26.0); ABG PARTIAL PRESSURE CO2 47.2 mmHg (35.0-45.0); ABG PARTIAL PRESSURE O2 83.4 mmHg (75.0-100.0); ABG STANDARD HCO3 27.5 MEQ/L (22.0-26.0)
[2016-06-27 21:34] LABS: HYPOCHROMASIA 1+; POLYCHROMASIA 1+
[2016-06-27 21:37] LABS: ANISOCYTOSIS 2+
[2016-06-27 21:50] LABS: CALCIUM LEVEL 8.3 MG/DL (8.8-10.2); CREATININE FOR GFR 2.97 MG/DL (0.70-1.30)
--- NOTE | 2016-06-27 21:57 | REP ---
Clinical: Shortness of breath. Comparison: 04/23/2016. Findings: Current examination demonstrates a new moderate pericardial effusion 2.7 cm maximal width as well as small/moderate bilateral pleural effusions and lower lobe consolidations/atelectasis. Mild pulmonary vascular congestion is suggested. Underlying diffuse chronic interstitial changes as well as bilateral upper lobe and scattered areas of scarring. Atherosclerotic changes to the thoracic aorta and coronary arteries noted without aneurysm. Subcentimeter sinal and hilar lymph nodes are nonspecific. Scattered calcified lymph nodes are also identified and suggestive of prior granulomatous disease. Musculoskeletal structures demonstrate age-related degenerative changes without focal osseous abnormality. Impression: 1. New small/moderate pericardial effusion measuring 2.7 cm maximal width. 2. Small to moderate bilateral pleural effusions and lower lobe consolidations/atelectasis with mild pulmonary vascular congestion. Signed by Johnny Berrios MD 06/27/2016 09:49 P
[2016-06-27] MEDS ORDERED: FERR325T PO (22:13)
[2016-06-27] MEDS ORDERED: MIRA33504 PO (22:40)
[2016-06-27] MEDS ORDERED: LORA2TAB9 PO (22:40)
[2016-06-27] MEDS ORDERED: ELIQ5TAB PO (22:40)
[2016-06-27] MEDS ORDERED: DIPH25CA PO (22:40)
[2016-06-27] MEDS ORDERED: IPRASOL4 INH (22:40)
[2016-06-27] MEDS ORDERED: VITMTA PO (22:40)
[2016-06-27] MEDS ORDERED: VITA100066 PO (22:40)
[2016-06-27] MEDS ORDERED: TERA5CA PO (22:40)
[2016-06-27] MEDS ORDERED: LABE30TA PO (22:40)
[2016-06-27] MEDS ORDERED: ASPI81TAEC PO (22:40)
[2016-06-27] MEDS ORDERED: SALI0.652 (22:40)
[2016-06-27] MEDS ORDERED: MIRT15TA3 PO (22:40)
[2016-06-27] MEDS ORDERED: HYDR-4266 PO (22:40)
[2016-06-27] MEDS ORDERED: CLON-412 PO (22:40)
[2016-06-27] MEDS ORDERED: PANT40TA2 PO (22:40)
[2016-06-27] MEDS ORDERED: SYMB16INH INH (22:40)
[2016-06-27] MEDS ORDERED: LORazepam 2 MG TAB PO PRN (23:45)
[2016-06-27] MEDS ORDERED: IPRATROPIUM 0.5MG/ALBUTEROL 2.5MG INH SOL UD 3ML (DUONEB)(J7620) INH PRN (23:45)
[2016-06-27] MEDS ORDERED: ACETAMINOPHEN TAB 650MG DOSE (2X325MG) PO PRN (23:45)
[2016-06-27] MEDS ORDERED: ALBUTEROL SULFATE 2.5 MG/0.5 ML INH NEB SOLN INH PRN (23:45)
[2016-06-27] MEDS ORDERED: FLEET ENEMA PR PRN (23:45)
[2016-06-27] MEDS ORDERED: SODIUM CHLORIDE NASAL 0.65% SPRAY BTL (OCEAN) PRN (23:45)
[2016-06-27] MEDS ORDERED: BISACODYL 10 MG SUPP PR PRN (23:45)
[2016-06-27] MEDS ORDERED: ACETAMINOPHEN 650 MG SUPP PR PRN (23:45)
[2016-06-28] MEDS ORDERED: DEXTROSE 50% 50 ML SYRINGE IV PRN (00:15)
[2016-06-28] MEDS ORDERED: GLUCAGON FOR INJ 1 MG VIAL (J1610) SC PRN (00:15)
[2016-06-28] MEDS ORDERED: GLUCOSE 4 GM CHEW TABLET PO PRN (00:15)
[2016-06-28 00:35] VITALS: BP 140/70
--- NOTE | 2016-06-28 00:49 | HPEPDOC ---
Medical History and Physical Date of Admission Jun 27, 2016 at 23:30 History and Physical Primary care provider: Dr. Bradley Johnston Date of Admission: 06/27/2016 Attending: Dr. Mercedes Michel M.D. CHIEF COMPLAINT: Multiple episodes of dyspnea HISTORY OF PRESENT ILLNESS: Mr. Snyder who presented to the ED once again today, he was here yesterday with the same complaint. Apparently he had an episode of dyspnea yesterday during dialysis, and his pail tester recommended that he be sent to the ED for evaluation, and it was their opinion that he should be admitted, however the patient did not wish to be admitted at that time and apparently insisted that he be returned back to his home at the [facility]. Earlier this morning he was suppose to have an appointment to go to [place] regarding a placement of an AV fistula, but this visit was postponed. Apparently he did have another episode of dyspnea while using the bedpan earlier this morning and he was now agreeable to go to the hospital for further evaluation. 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 Does not drink alcohol. 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 He is currently a resident at the [facility]. FAMILY HISTORY: Has a sister has heart disease. His father apparently had heart problems, and his mother had ovarian cancer. REVIEW OF SYSTEMS: Constitutional: Patient denies fevers, chills, night sweats, recent weight gain/ loss. HEENT: Patient denies blurred or double vision, transient visual disturbances, postnasal drip, epistaxis, sore throat, difficulty chewing or swallowing food. Cardiovascular: Patient denies chest discomfort/pain, palpitations. He does admit to exertional dyspnea, even with the slightest movements now. Occasionally he suffers from orthopnea, not currently. Currently he does not have any edema of the extremities. Respiratory: On multiple dyspneic episodes as described in the HPI. Denies cough , wheezing, sputum production, hemoptysis. Gastrointestinal: Patient denies nausea, vomiting, diarrhea, constipation, abdominal pain, melena, hematochezia, hematemesis, jaundice. He states that he only urinates every couple of days now. PHYSICAL EXAMINATION: General: Awake, alert, oriented 3. He is in no apparent distress at this time. He is reclined on the hospital stretcher. HEENT: Head normocephalic atraumatic, pupils equally reactive to light and accommodation, conjunctiva are pink, sclera are nonicteric, buccal mucosa is pink and moist with no lesions in the oropharynx. Hearing is grossly intact to conversation. Respiratory: Faint crackles at the bases, otherwise no wheezes or rhonchi Cardiovascular: Distant heart sounds, however appears to be regular rate and rhythm, with no rubs, gallops, or murmur. Abdomen: Obese, soft, nontender, nondistended, no hepatosplenomegaly appreciated. Bowel sounds present. Extremities: 2+ pulses in the radial and dorsalis pedis bilaterally. No evidence of clubbing or cyanosis. Skin: Stage II sacral pressure injury noted, approximately 7.5 x 9 cm, otherwise no additional rashes, bruises, or adenopathy IMAGING: Portable chest x-ray 06/27/2016, impression: Left basilar atelectasis/ infiltrate. I suspect a small right effusion with fluid in the fissure at the level of the hilum. CT of the chest without contrast 06/28/2016, impression: 1. New small/moderate pericardial effusion measuring 2.7 cm maximal width. 2. Small to moderate bilateral pleural effusions and lower lobe consolidation/atelectasis with mild pulmonary vascular congestion ASSESSMENT/PLAN: 1. Fluid overload. Will admit the patient to [facility]. He will require dialysis tomorrow, therefore I have already placed a consult for nephrology in the computer, but as he is not in need of emergent dialysis, I will allow the day team to contact Dr. Sanabria at a more reasonable hour. 2. Leukocytosis. Given his lack of constitutional symptoms, and findings on imaging scan of pneumonia is less likely at this point. His leukocytosis has improved since yesterday, he was given a dose of Solu-Medrol in the ED yesterday , therefore his leukocytosis may be due to margination versus stress reaction from his fluid overload and dyspneic episodes. 3. Diastolic congestive heart failure. His fluid overload is more likely due to premature termination of his last dialysis, however his chronic diastolic congestive heart failure is a complicating factor. 4. Diabetes mellitus type 2. Start him on before meals and at bedtime fingersticks, and will continue his home dose of Levemir. He has been started on a consistent carbohydrate diet and 5. Anxiety. We will continue with when necessary lorazepam, as well as 2 mg of lorazepam by mouth prior to every hemodialysis session, and we will also continue him on his home dose of Lexapro, and Remeron at night for sleep. 6. Hypertension. Continue with home antihypertensives including clonidine, hydralazine, labetalol. 7. History of pulmonary embolus. Continue with home dose of Eliquis 8. Hyperlipidemia. Continue statin therapy 9. Coronary artery disease. Continue aspirin 10. Chronic lung disease. Continue with home regimen of inhalers and nebulizers. 11. Stage II sacral pressure injury, present upon admission. Continue with barrier protection and offloading per nursing standard of care 12. DVT prophylaxis. Teds and sequentials Addendum Attending: Case discussed with Dr. Sanabria by phone. Recommends transfusion, which has been ordered. Case signed out to Dr. Keita. I have both independently examined this patient as well as reviewed the dictated note. I have discussed in detail with the resident the findings and plan of treatment as documented in the residents note. I will continue to follow the patient and offer further guidance to the patients care as necessary until seen by the family medicine team. Vital Signs Vital Signs Date Time Temp Pulse Resp B/P (MAP) Pulse Ox O2 Delivery O2 Flow Rate FiO2 06/27/16 23:39 97.0 74 18 157/75 (102) 97 Nasal Cannula 3.0 Laboratory Data Labs 24H Laboratory Tests 2 06/27/16 20:56: White Blood Count 16.3H, Red Blood Count 2.61L, Hemoglobin 7.1L, Hematocrit 24.2L, Mean Corpuscular Volume 92.8, Mean Corpuscular Hemoglobin 27.2, Mean Corpuscular Hemoglobin Concent 29.4L, Red Cell Distribution Width 17.7H, Platelet Count 546H, Neutrophils (%) (Auto) 90.0H, Lymphocytes (%) (Auto) 5.8L, Monocytes (%) (Auto) 3.0, Eosinophils (%) (Auto) 0.3, Basophils (%) (Auto) 0.2, Neutrophils # (Auto) 14.7H, Lymphocytes # (Auto) 1.0L, Monocytes # (Auto) 0.5, Eosinophils # (Auto) 0.0, Basophils # (Auto) 0.0, Large Unclassified Cells % 0.7 , Large Unclassified Cells # 0.1, Platelet Estimate INCREASED, Polychromasia 1+ , Hypochromasia 1+, Anisocytosis 2+, Anion Gap 11, Glomerular Filtration Rate 22.0L, Lactic Acid Level 1.3, Blood Urea Nitrogen 33#H, Creatinine 2.97H, Sodium Level 135L, Potassium Level 4.0, Chloride Level 97L, Carbon Dioxide Level 27, Calcium Level 8.3L, B-Type Natriuretic Peptide 3000H 06/27/16 21:14: Blood Gas Bicarbonate Standard 27.5H, Arterial Blood pH 7.400, Arterial Blood Partial Pressure CO2 47.2H, Arterial Blood Partial Pressure O2 83.4, Arterial Blood Total CO2 30.0, Arterial Blood HCO3 28.6H, Arterial Blood Base Excess 3.4H , Arterial Blood Oxygen Saturation 96.1 CBC/BMP Laboratory Tests 06/27/16 20:56 Red Blood Count 2.61 L, Mean Corpuscular Volume 92.8, Mean Corpuscular Hemoglobin 27.2, Mean Corpuscular Hemoglobin Concent 29.4 L, Red Cell Distribution Width 17.7 H, Neutrophils (%) (Auto) 90.0 H, Lymphocytes (%) (Auto ) 5.8 L, Monocytes (%) (Auto) 3.0, Eosinophils (%) (Auto) 0.3, Basophils (%) ( Auto) 0.2, Neutrophils # (Auto) 14.7 H, Lymphocytes # (Auto) 1.0 L, Monocytes # (Auto) 0.5, Eosinophils # (Auto) 0.0, Basophils # (Auto) 0.0, Calcium Level 8.3 L Microbiology Microbiology 06/27/16 Blood Culture, Received Pending Home Medications Scheduled (Ensure Enlive) 1 Liq Liq, 120 ML PO TID takes at 0900, 1300, and 2000 Albuterol Sulfate (Albuterol Sulfate) 2.5 Mg/3 Ml Nebu, 2.5 MG INH TID takes at 0500, 1300, and 2100 Apixaban Base (Eliquis) 5 Mg Tab, 5 MG PO BID Aspirin (Aspirin EC) 81 Mg Tabec, 81 MG PO DAILY Budesonide/Formoterol (Symbicort 160-4.5 Mcg/Act) 60 Puff/Inhaler Aers, 2 PUFF INH BID Cholecalciferol (Vitamin D) 1,000 Unit Tab, 1,000 UNIT PO DAILY Clonidine Hydrochloride (Clonidine HCl) 0.1 Mg Tab, 0.1 MG PO TID Docusate Sod/Senna (Senna-Plus 8.6-50 mg) 1 Tab Tab, 1 TAB PO BID Escitalopram Oxalate (Lexapro) 10 Mg Tab, 10 MG PO DAILY Ferrous Sulfate (Ferrous Sulfate) 325 Mg Tab, 325 MG PO BID takes at 0600 and 1400 Hydralazine HCl (Hydralazine HCl) 25 Mg Tab, 25 MG PO BID Insulin Glargine (Lantus Solostar) 100 Unit/Ml Inj, 32 UNITS SC QHS Isosorbide Dinitrate (Isosorbide Dinitrate) 20 Mg Tab, 20 MG PO TID Labetalol HCl (Labetalol HCl) 300 Mg Tab, 300 MG PO BID Lorazepam (Lorazepam) 2 Mg Tab, 2 MG PO 3XW friday, friday and friday around lunchtime Mirtazapine (Mirtazapine) 15 Mg Tab, 15 MG PO QHS Multivitamins *[facility] STOCKED* (Thera M Plus *[facility] STOCKED*) 1 Tab Tab, 1 TAB PO DAILY Pantoprazole Sodium (Pantoprazole Sodium) 40 Mg Tab, 40 MG PO DAILY Polyethylene Glycol (Miralax) 1 Pow Pow, 17 GM PO DAILY Simvastatin (Simvastatin) 20 Mg Tab, 20 MG PO QHS Terazosin HCl (Terazosin HCl) 5 Mg Cap, 5 MG PO QHS Tiotropium King Monohydrate (Spiriva Handihaler) 18 Mcg Cap, 1 INHALATION INH DAILY Scheduled PRN (Enema Disposable) 1 Edgardo Edgardo, 1 EDGARDO [place] DAILY PRN for CONSTIPATION Acetaminophen (Acetaminophen) 650 Mg Supp, 650 MG IL Q4H PRN for PAIN / FEVER Acetaminophen (Tylenol) 325 Mg Tab, 650 MG PO Q4H PRN for PAIN / FEVER Albuterol Sulfate (Albuterol Sulfate) 2.5 Mg/3 Ml Nebu, 2.5 MG INH Q4H PRN for SHORTNESS OF BREATH Albuterol/Ipratropium (Ipratropium King/Albut 0.5-2.5 (3) mg/3Ml) 1 Brendan Brendan, 1 BRENDAN INH Q2H PRN for SHORTNESS OF BREATH Bisacodyl (Bisacodyl) 10 Mg Sup, 10 MG [place] DAILY PRN for CONSTIPATION Diphenhydramine HCl (Diphenhydramine HCl) 25 Mg Cap, 25 MG PO DAILY PRN for INSOMNIA Guaifenesin/Dextromethorphan (Guaifenesin Dm 100-10 mg/5Ml) 1 Syp Syp, 10 ML PO Q4H PRN for COUGH Lorazepam (Lorazepam) 0.5 Mg Tab, 0.5 MG PO Q6H PRN for ANXIETY Sodium Chloride (Saline Mist) 0.65 % Spr, 1 SPRAY NA Q2H PRN for NASAL DRYNESS EACH NOSTRIL Allergies Coded Allergies: No Known Allergies (Verified , 06/02/09) TIFFANIE MCGOWAN DO Jun 28, 2016 00:49 MERCEDES MICHEL MD Jun 29, 2016 19:42
[2016-06-28] MEDS: HumaLOG INSULIN (NovoLOG) PER UNIT SC SCH ×5 (01:40→20:19)
[2016-06-28] MEDS: **hydrALAZINE HCL** 25 MG TAB PO SCH ×4 (01:51→21:11)
[2016-06-28] MEDS: cloNIDine 0.1 MG TAB PO SCH ×7 (01:51→21:09)
[2016-06-28] MEDS: APIXABAN 5 MG TAB (ELIQUIS) PO SCH ×3 (01:51→08:02)
[2016-06-28] MEDS: ISOSORBIDE DIN. (ISORDIL) 20 MG TAB PO SCH ×4 (01:52→21:09)
[2016-06-28] MEDS: LABETALOL 100 MG TAB PO SCH ×3 (01:52→21:08)
[2016-06-28] MEDS: MIRTAZAPINE 15 MG TAB PO SCH ×2 (01:52→21:09)
[2016-06-28] MEDS: SENOKOT S TAB PO SCH ×4 (01:52→21:08)
[2016-06-28] MEDS: TERAZOSIN 5 MG CAP PO SCH ×2 (01:52→21:09)
[2016-06-28] MEDS: SYMBICORT 160/4.5MCG INHALER 6GM INH SCH ×3 (01:53→19:31)
[2016-06-28] MEDS: SIMVASTATIN 20 MG TAB PO SCH ×2 (01:54→21:09)
[2016-06-28] MEDS: LEVEMIR (INSULIN DETEMIR) 1 UNITS/0.01ML SC SCH (01:59)
[2016-06-28 05:43] VITALS: BP 112/60
[2016-06-28] MEDS: LORazepam 2 MG TAB PO SCH (06:11)
[2016-06-28 06:56] LABS: MEAN CORPUSCULAR HEMOGLOBIN 27.2 pg (27.0-33.0); MEAN CORPUSCULAR HGB CONC 29.1 g/dl (32.0-36.5); MEAN CORPUSCULAR VOLUME 93.3 fl (80.0-96.0); RED CELL DISTRIBUTION WIDTH 17.7 % (11.5-14.5)
[2016-06-28 07:05] LABS: CALCIUM LEVEL 8.9 MG/DL (8.8-10.2); CREATININE FOR GFR 3.22 MG/DL (0.70-1.30); POTASSIUM SERUM 3.9 MEQ/L (3.5-5.1)
--- NOTE | 2016-06-28 07:31 | IPNPDOC ---
Subjective Date Seen The patient was seen on 06/28/16. Subjective Chief Complaint/HPI The patient is a 75-year-old male admitted with a reason for visit of Fluid Overload. Events since last encounter Admitted overnight. States symptoms mildly improved. Planning for dialysis today. nephrology consulted. Constitutional: Denies: Chills, Fever, Night Sweats Pulmonary: Reports: Dyspnea, Denies: Cough Cardiovascular: Denies: Chest Pain, Palpitations, Orthopnea, Paroxysmal Noc. Dyspnea, Lt Headedness Gastrointestinal: Denies: Nausea, Vomiting, Abdominal Pain, Diarrhea, Constipation Genitourinary: Denies: Dysuria, Frequency, Incontinence, Retention Psych: Reports: Mood Normal, Denies: Depression, Memory Issues Objective Physical Examination General Exam: Positive: Alert, No Acute Distress Neck Exam: Positive: Supple, Negative: JVD, thyromegaly Chest Exam: Positive: Clear to auscultation, Rales (bibasilar) Heart Exam: Positive: Rate Normal, Regular Rhythm, Normal S1, Normal S2, Negative: Murmurs, Rubs Abdomen Exam: Positive: Normal bowel sounds, Soft, Negative: Tenderness, Hepatospenomegaly Extremity Exam: Positive: Normal pulses, Negative: Clubbing, Cyanosis, Edema Skin Exam: Positive: Nl turgor and temperature, Negative: Rash, Breakdown Assessment /Plan Problems (1) Fluid overload Problem Text: Moderate pleural effusion with pericardial effusion on CT chest. Previously shortened dialysis course, may be cause of volume overload. Plan for dialysis today. nephrology consulted. I/o monitored. (2) Occupational lung disease Status: Chronic (3) End stage renal disease on dialysis Status: Chronic Problem Specific Plan: Consult Specialist (4) Diastolic CHF Status: Chronic Problem Specific Plan: Monitor Clinically Problem Text: Hydralazine held due to hypotension. (5) Hypertension Status: Chronic Problem Specific Plan: Monitor Clinically Problem Text: Anti-hypertensives held due to hypotension this am. (6) Diabetes Status: Chronic Problem Text: hypoglycemia today: received Levemir overnight may be contributing factor. Will monitor BS ac and hs (7) CAD in [place] artery Status: Chronic Problem Specific Plan: Monitor Clinically (8) Anemia secondary to renal failure Status: Acute Problem Specific Plan: Consult Specialist, Monitor Clinically Problem Text: Transude 2 units RBC today. Plan/VTE VTE Prophylaxis Ordered?: Yes (Eliquis) VS, I&O, 24H, Fishbone Vital Signs/I&O Vital Signs Date Time Temp Pulse Resp B/P (MAP) Pulse Ox O2 Delivery O2 Flow Rate FiO2 06/28/16 05:56 68 06/28/16 05:55 112/60 06/28/16 05:43 98.6 18 98 Nasal Cannula 3.0 I&O- Last 24 Hours up to 6 AM 06/28/16 05:59 Intake Total 0 ml Output Total 0 ml Balance 0 ml Laboratory Data 24H LABS Laboratory Tests 2 06/27/16 20:56: White Blood Count 16.3H, Red Blood Count 2.61L, Hemoglobin 7.1L, Hematocrit 24.2L, Mean Corpuscular Volume 92.8, Mean Corpuscular Hemoglobin 27.2, Mean Corpuscular Hemoglobin Concent 29.4L, Red Cell Distribution Width 17.7H, Platelet Count 546H, Neutrophils (%) (Auto) 90.0H, Lymphocytes (%) (Auto) 5.8L, Monocytes (%) (Auto) 3.0, Eosinophils (%) (Auto) 0.3, Basophils (%) (Auto) 0.2, Neutrophils # (Auto) 14.7H, Lymphocytes # (Auto) 1.0L, Monocytes # (Auto) 0.5, Eosinophils # (Auto) 0.0, Basophils # (Auto) 0.0, Large Unclassified Cells % 0.7 , Large Unclassified Cells # 0.1, Platelet Estimate INCREASED, Polychromasia 1+ , Hypochromasia 1+, Anisocytosis 2+, Anion Gap 11, Glomerular Filtration Rate 22.0L, Lactic Acid Level 1.3, Blood Urea Nitrogen 33#H, Creatinine 2.97H, Sodium Level 135L, Potassium Level 4.0, Chloride Level 97L, Carbon Dioxide Level 27, Calcium Level 8.3L, B-Type Natriuretic Peptide 3000H 06/27/16 21:14: Blood Gas Bicarbonate Standard 27.5H, Arterial Blood pH 7.400, Arterial Blood Partial Pressure CO2 47.2H, Arterial Blood Partial Pressure O2 83.4, Arterial Blood Total CO2 30.0, Arterial Blood HCO3 28.6H, Arterial Blood Base Excess 3.4H , Arterial Blood Oxygen Saturation 96.1 06/28/16 01:37: Bedside Glucose (Misc Panel) 93 06/28/16 06:36: Anion Gap 8, Glomerular Filtration Rate 20.0L, Blood Urea Nitrogen 35H, Creatinine 3.22H, Sodium Level 135L, Potassium Level 3.9, Chloride Level 98, Carbon Dioxide Level 29, Calcium Level 8.9 CBC/BMP Laboratory Tests 06/27/16 20:56 Red Blood Count 2.61 L, Mean Corpuscular Volume 92.8, Mean Corpuscular Hemoglobin 27.2, Mean Corpuscular Hemoglobin Concent 29.4 L, Red Cell Distribution Width 17.7 H, Neutrophils (%) (Auto) 90.0 H, Lymphocytes (%) (Auto ) 5.8 L, Monocytes (%) (Auto) 3.0, Eosinophils (%) (Auto) 0.3, Basophils (%) ( Auto) 0.2, Neutrophils # (Auto) 14.7 H, Lymphocytes # (Auto) 1.0 L, Monocytes # (Auto) 0.5, Eosinophils # (Auto) 0.0, Basophils # (Auto) 0.0, Calcium Level 8.3 L 06/28/16 06:36 Red Blood Count 2.72 L, Mean Corpuscular Volume 93.3, Mean Corpuscular Hemoglobin 27.2, Mean Corpuscular Hemoglobin Concent 29.1 L, Red Cell Distribution Width 17.7 H, Calcium Level 8.9 Microbiology Microbiology 06/27/16 Blood Culture, Received Pending Cecilia Powell [employer] T[employer] TECH[employer]ICIAN Jun 28, 2016 07:31
[2016-06-28] MEDS: TIOTROPIUM INHALER/CAPSULE (SPIRIVA) INH SCH (07:57)
[2016-06-28] MEDS: ALBUTEROL SULFATE 2.5 MG/0.5 ML INH NEB SOLN INH SCH ×3 (08:00→19:31)
[2016-06-28] MEDS: MULTIVITAMINS/MINERALS THERAP 1 TAB PO SCH (08:02)
[2016-06-28] MEDS: ESCITALOPRAM OXALATE 10 MG TAB (LEXAPRO) PO SCH (08:02)
[2016-06-28] MEDS: FERROUS SULFATE 325MG TAB PO SCH ×2 (08:03→21:09)
[2016-06-28] MEDS: ASPIRIN 81 MG ENTERIC TAB PO SCH (08:03)
[2016-06-28] MEDS: VITAMIN D 1,000 INTERNATIONAL UNITS TABLET PO SCH (08:03)
[2016-06-28] MEDS: PANTOPRAZOLE 40MG TAB (PROTONIX) PO SCH (08:03)
[2016-06-28] MEDS: MIRALAX *UNIT DOSE* 17GM PACKET PO SCH (08:05)
[2016-06-28] MEDS ORDERED: HEPARIN 1,000 UNITS/ML 10ML VIAL (FOR RADIOLOGY& DIALYSIS ONLY) XX ONE (12:00)
[2016-06-28] MEDS ORDERED: HEPARIN 1,000 UNITS/ML 10ML VIAL (FOR RADIOLOGY& DIALYSIS ONLY) IV ONE (12:00)
[2016-06-28 14:00] VITALS: BP 150/72
[2016-06-28] MEDS: LORazepam 0.5 MG TAB PO PRN (17:45)
[2016-06-28 20:06] VITALS: BP 150/68
[2016-06-28] MEDS: diphenhydrAMINE 25 MG CAP PO PRN (22:40)
[2016-06-29 06:00] VITALS: BP 136/64
[2016-06-29 06:15] LABS: MEAN CORPUSCULAR HGB CONC 29.4 g/dl (32.0-36.5); RED CELL DISTRIBUTION WIDTH 17.6 % (11.5-14.5); WHITE BLOOD COUNT 14.5 K/mm3 (4.0-10.0)
[2016-06-29 06:29] LABS: CALCIUM LEVEL 9.4 MG/DL (8.8-10.2); CREATININE FOR GFR 1.84 MG/DL (0.70-1.30); GLOMERULAR FILTRATION RATE 38.2 (>42)
[2016-06-29] MEDS: TIOTROPIUM INHALER/CAPSULE (SPIRIVA) INH SCH (07:29)
[2016-06-29] MEDS: SYMBICORT 160/4.5MCG INHALER 6GM INH SCH ×2 (07:29→19:48)
[2016-06-29] MEDS: HumaLOG INSULIN (NovoLOG) PER UNIT SC SCH ×4 (07:30→20:57)
[2016-06-29] MEDS: ALBUTEROL SULFATE 2.5 MG/0.5 ML INH NEB SOLN INH SCH ×3 (08:00→20:00)
[2016-06-29] MEDS: LABETALOL 100 MG TAB PO SCH ×2 (09:18→21:42)
[2016-06-29] MEDS: MIRALAX *UNIT DOSE* 17GM PACKET PO SCH (09:18)
[2016-06-29] MEDS: VITAMIN D 1,000 INTERNATIONAL UNITS TABLET PO SCH (09:18)
[2016-06-29] MEDS: LORazepam 0.5 MG TAB PO PRN ×2 (09:18→17:37)
[2016-06-29] MEDS: FERROUS SULFATE 325MG TAB PO SCH ×2 (09:18→21:43)
[2016-06-29] MEDS: PANTOPRAZOLE 40MG TAB (PROTONIX) PO SCH (09:18)
[2016-06-29] MEDS: SENOKOT S TAB PO SCH ×2 (09:19→21:44)
[2016-06-29] MEDS: ISOSORBIDE DIN. (ISORDIL) 20 MG TAB PO SCH ×3 (09:19→21:43)
[2016-06-29] MEDS: ESCITALOPRAM OXALATE 10 MG TAB (LEXAPRO) PO SCH (09:19)
[2016-06-29] MEDS: ASPIRIN 81 MG ENTERIC TAB PO SCH (09:19)
[2016-06-29] MEDS: cloNIDine 0.1 MG TAB PO SCH ×3 (09:19→21:42)
[2016-06-29] MEDS: MULTIVITAMINS/MINERALS THERAP 1 TAB PO SCH (09:19)
[2016-06-29] MEDS: APIXABAN 5 MG TAB (ELIQUIS) PO SCH ×2 (09:20→21:43)
[2016-06-29] MEDS: guaiFENesin DM LIQ 10ML UD PO PRN (09:36)
[2016-06-29] MEDS ORDERED: HEPARIN 1,000 UNITS/ML 10ML VIAL (FOR RADIOLOGY& DIALYSIS ONLY) XX ONE (11:00)
[2016-06-29] MEDS ORDERED: DARBEPOETIN 300 MCG/0.6 ML *DIALYSIS* SYRINGE (J0882) IV SCH (13:30)
[2016-06-29] MEDS ORDERED: LevoFLOXacin 750 MG TABLET PO ONE (14:00)
--- NOTE | 2016-06-29 14:42 | IPNPDOC ---
Subjective Date Seen The patient was seen on 06/29/16. Subjective Chief Complaint/HPI The patient is a 75-year-old male admitted with a reason for visit of Fluid Overload. Events since last encounter Patient currently receiving dialysis. States that his breathing has gotten much better. He is developed some hoarseness, and is having difficulty speaking due to this. However, he states in general he feels well. He denies any fevers, chills, sweats. He denies any dysuria. Constitutional: Denies: Chills, Fever, Malaise ENT: Reports: Other Symptoms (hoarseness of voice) Skin: Reports: Breakdown (on bottom, with no skin breakdown), Denies: Rash, Lesions Pulmonary: Denies: Dyspnea, Cough, Pleuritic Chest Pain Cardiovascular: Denies: Chest Pain, Palpitations, Orthopnea Gastrointestinal: Denies: Nausea, Vomiting, Abdominal Pain, Diarrhea, Constipation Genitourinary: Denies: Dysuria, Frequency Neurological: Denies: Weakness Psych: Reports: Mood Normal Objective Physical Examination General Exam: Positive: Alert, No Acute Distress Eye Exam: Positive: Conjunctiva & lids normal ENT Exam: Positive: Mucous membr. moist/pink, Other ENT (hoarseness of voice) Neck Exam: Positive: Supple, Negative: JVD, thyromegaly Chest Exam: Positive: Clear to auscultation, Rales (bibasilar) Heart Exam: Positive: Rate Normal, Regular Rhythm, Normal S1, Normal S2, Murmurs (1/6 systolic ejection murmur, faint heart tones), Negative: Rubs Abdomen Exam: Positive: Normal bowel sounds, Soft, Negative: Tenderness, Hepatospenomegaly Extremity Exam: Positive: Normal pulses, Negative: Clubbing, Cyanosis, Edema Skin Exam: Positive: Nl turgor and temperature, Negative: Rash, Breakdown Assessment /Plan Problems (1) Acute respiratory failure with hypoxia Status: Acute Response to Treatment: Stable Problem Text: Likely to secondary to congestive heart failure with bilateral pleural effusions. However, patient has persistent leukocytosis. Review chest x- ray, and CT scan which showed possible bilateral consolidations. These did not appear to be layering. Started patient on empiric Levaquin. (2) Fluid overload Problem Text: Moderate pleural effusion with pericardial effusion on CT chest. Repeat chest x-ray 06/29/2016 shows persistent bibasilar pleural effusions. Patient had dialysis again 06/29/2016. -Nephrology managing volume status (3) Occupational lung disease Status: Chronic Problem Text: No current shortness of breath (4) End stage renal disease on dialysis Status: Chronic Problem Specific Plan: Consult Specialist (5) Diastolic CHF Status: Chronic Problem Specific Plan: Monitor Clinically Problem Text: Hydralazine held due to hypotension. (6) Hypertension Status: Chronic Problem Specific Plan: Monitor Clinically Problem Text: Blood pressure currently stable on home regimen of Clonidine 0.1 mg 3 times a day, labetalol 300 mg twice a day, hydralazine 25 mg twice a day (7) Diabetes Status: Chronic Problem Text: Levemir held for hypoglycemia -SSI (8) CAD in [place] artery Status: Chronic Problem Specific Plan: Monitor Clinically (9) Anemia secondary to renal failure Status: Acute Problem Specific Plan: Consult Specialist, Monitor Clinically Problem Text: Status post 2 units packed red blood cells 06/28/2016. Plan/VTE VTE Prophylaxis Ordered?: Yes (Eliquis) Disposition pending respiratory failure, effusions VS, I&O, 24H, [facility] Vital Signs/I&O Vital Signs Date Time Temp Pulse Resp B/P (MAP) Pulse Ox O2 Delivery O2 Flow Rate FiO2 06/29/16 09:19 136/64 06/29/16 09:18 78 06/29/16 09:00 Nasal Cannula 3.0 06/29/16 06:00 97.0 19 94 I&O- Last 24 Hours up to 6 AM 06/29/16 06:00 Intake Total 1640 ml Output Total 3000 ml Balance -1360 ml Laboratory Data 24H LABS Laboratory Tests 2 06/28/16 14:47: Bedside Glucose (Misc Panel) 74L 06/28/16 16:19: Bedside Glucose (Misc Panel) 83 06/28/16 20:16: Bedside Glucose (Misc Panel) 96 06/29/16 05:52: Anion Gap 6L, Glomerular Filtration Rate 38.2L, Blood Urea Nitrogen 17#, Creatinine 1.84H, Sodium Level 136, Potassium Level 4.0, Chloride Level 100, Carbon Dioxide Level 30, Calcium Level 9.4 CBC/BMP Laboratory Tests 06/29/16 05:52 Red Blood Count 3.64 L, Mean Corpuscular Volume 92.0, Mean Corpuscular Hemoglobin 27.0, Mean Corpuscular Hemoglobin Concent 29.4 L, Red Cell Distribution Width 17.6 H, Calcium Level 9.4 Microbiology Microbiology 06/27/16 Blood Culture - Preliminary, Resulted No growth after 24 hours . All specim... MARK BESS MD Jun 29, 2016 14:41
[2016-06-29 14:45] VITALS: BP 129/70
--- NOTE | 2016-06-29 15:05 | CR ---
DATE OF CONSULTATION: 06/28/2016 Nephrology consultation for Piter Dyer MD REASON FOR CONSULTATION: To assist in the management of end-stage renal disease , dyspnea and severe anemia. HISTORY OF PRESENT ILLNESS: Mr. Snyder is a 75-year-old gentleman who is currently a custodial resident at [facility]. He has end-stage renal disease, chronic hypoxemia, history of congestive heart failure and chronic anemia. He has been doing poorly since he went to custodial. He has been noncompliant with hemodialysis and signed out against medical advice most of the time. He was admitted last evening due to leukocytosis, severe anemia, shortness of breath and generalized weakness. He was found to have a hemoglobin of 7. His white cell count has been about 20,000. The patient has either missed hemodialysis or cut his treatment short almost every time during the last few weeks. Nephrology consultation was requested, and the patient is seen this morning. PAST MEDICAL AND SURGICAL HISTORY: Significant for: 1. End-stage renal disease requiring maintenance hemodialysis. 2. History of chronic lung disease. 3. Hypertension. 4. Coronary artery disease with prior myocardial infarction ([place]). 5. Diastolic congestive heart failure. 6. Gout. 7. Type 2 diabetes. 8. BPH. 9. History of gastrointestinal (GI) bleed. 10. History of obstructive sleep apnea. 11. Hyperlipidemia. 12. History of sacral decubiti. Past surgical history is significant for appendectomy, partial colectomy, cholecystectomy and bilateral knee replacement. He also has a dialysis catheter placed in right internal jugular vein. PERSONAL AND SOCIAL HISTORY: The patient quit smoking about 40 years ago. There is no history of alcohol or drug use. He is currently a custodial resident. FAMILY HISTORY: Negative for end-stage renal disease. REVIEW OF SYSTEMS: The patient is a poor historian. He denies any fever or chills. He has been on chronic oxygen use. He denies any nosebleed or sinus problems. Cardiovascular system is significant for chronic dyspnea and hypoxemia. He denies any chest pain. Respiratory system is significant for hypoxemia, shortness of breath and no pleuritic type of chest pain. GI system is significant for poor appetite. He denies any nausea or vomiting. There is no history of diarrhea. system is significant for end-stage renal disease. He has minimal urine output. There is no history of kidney stones. Musculoskeletal system is significant for generalized weakness. He is unable to transfer and is bed-bound. Hematological system is significant for chronic anemia. Psychosocial system significant for anxiety and noncompliance. Skin is significant for sacral pressure ulcer. Neurological system is negative for seizures or stroke. PHYSICAL EXAMINATION: Elderly gentleman lying in the bed with head end elevated at 45 degrees. Temperature 98 degrees Fahrenheit, heart rate 94 per minute and respiratory rate 20 per minute. Blood pressure 150/72 mmHg and oxygen saturation 92%. He is using oxygen via nasal cannula and 3 liters. Head is atraumatic. Neck veins are difficult to be assessed. A dialysis catheter is present in the right internal jugular vein. Oral mucosa is moist and healthy. Pupils are equal and reactive to light and sclera is anicteric. Heart sounds are irregular in rhythm. Lungs with bilateral rhonchi. Abdomen: Obese, soft and nontender. Extremities: Without any cyanosis or clubbing. Skin has no generalized rash or ulcers other than stage II sacral decubitus pressure ulcer area. Neurologically, he is awake, alert and oriented times three. He seems quite cooperative today compared with his usual dialysis sessions. LABORATORY DATA: WBC count 16.3, hemoglobin 7.1 and hematocrit 24.2. Platelets 546. Last week in hemodialysis, his WBC count was 20,000. Sodium 135 and potassium 4.0. BUN 33 and creatinine 2.97. Glucose [address] scan of chest was done in the emergency room which showed new small to moderate pericardial effusion, which was 2.7 cm in maximum width. There are small to moderate bilateral pleural effusions and lower lobe consolidations/ atelectasis with mild pulmonary vascular congestion. PROBLEMS: 1. End-stage renal disease. The patient has been partly noncompliant with hemodialysis. He is being dialyzed today, and he seems to be much more cooperative and compliant. Our plan is to dialyze him for 3-1/2 hours or 4 hours if he tolerates. 2. Pericardial effusion. 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 We will continue our efforts to dialyze him regularly for 4 hours. 3. Bilateral pleural effusions. Again, this is related to noncompliance with dialysis and dietary restrictions. We will remove about 3 liters of fluid today. I will try to dialyze him or ultrafiltrate him again tomorrow in order to correct his effusions. 4. Severe anemia. The patient has been symptomatic due to severe anemia. He will be transfused 2 units of packed red blood cells today. Patient has consented. 5. Diastolic congestive heart failure with volume overload. A BNP level was 3000, suggestive off congestive heart failure. Will continue our efforts to correct his volume status with hemodialysis. I thank you for involving me in the care of Mr. Snyder. I will follow him along with you. PARMINDER
--- NOTE | 2016-06-29 15:09 | REP ---
PORTABLE CHEST, ONE VIEW: HISTORY: Hypoxia. COMPARISON: 06/26/2016 An increase in interstitial markings is present in the lungs, consistent with chronic interstitial change. Increased density is present in the left lower lobe, consistent with atelectasis or infiltrate, unchanged compared to the previous study. The cardiac silhouette is enlarged. The pulmonary vasculature is normal in appearance. A catheter is present in the superior vena cava. IMPRESSION: 1. Left lower lobe atelectasis or infiltrate, unchanged compared to the previous study. 2. Chronic interstitial change. 3. Cardiomegaly. Signed by Mir Pena MD 06/29/2016 01:18 P
--- NOTE | 2016-06-29 15:11 | IPN ---
DATE: 06/29/2016 SUBJECTIVE: The patient was seen and examined at the bedside today during hemodialysis procedure in the morning. The patient was tolerating the hemodialysis procedure well. The patient got the hemodialysis done yesterday as well, but he is getting an extra session of hemodialysis because of pleural and pericardial effusions. REVIEW OF SYSTEMS: The patient denies any fever, chills, rigors, headache, nausea, vomiting. He does report that he has laryngitis and difficulty talking and some sore throat. He denies any pain in abdomen, constipation or diarrhea. The patient reports inability to walk around. The rest of the review of systems is negative. OBJECTIVE: VITAL SIGNS: Temperature 97 degrees Fahrenheit. Blood pressure 136/64. Pulse is 78. Respiratory rate of 19. Saturating 94% on nasal cannula at 3 liters per minute. INTAKE AND OUTPUT: Urine output is not recorded. The patient got hemodialysis and ultra filtration done yesterday. Fluid removal was almost 3 liters. Weight on the bed scale is 95.8 kg. PHYSICAL EXAMINATION: GENERAL: Patient is awake, alert, oriented times three, laying in the bed, in no apparent distress getting hemodialysis done. HEAD AND NECK: Extraocular muscles intact. Pupils equally round and reactive to light. Mucous membranes are moist. Neck is supple. There is no jugular venous distention (JVD). The patient has a right IJ tunneled hemodialysis catheter. CARDIOVASCULAR: Heart sounds are distant. I could not appreciate any pericardial rub or murmur. RESPIRATORY: Decreased breath sounds at the bases and mild crepitations on deep inspiration. ABDOMEN: Soft. Obese. Positive bowel sounds. Nontender. No ascites. No organomegaly. EXTREMITIES: No clubbing or cyanosis. The patient has trace edema of the bilateral lower extremities. CENTRAL NERVOUS SYSTEM: No focal neurological deficit. Power is 5/5 in all extremities. LAB REVIEW: CBC showed WBC of 14.5, hemoglobin 9.9 and platelets of 546. BMP showed sodium 136, potassium 4, chloride 100, bicarbonate 30, BUN 17, creatinine 1.84. IMAGING: Chest x-ray done today morning, official report is still pending, but that x-ray as read by me is no acute infiltrate. There are small bilateral pleural effusions and right sided tunneled hemodialysis catheter is ending in the superior vena cava. CURRENT MEDICATIONS: Patient's medications were all reviewed by me and there is no change in the medications today as compared with yesterday. ASSESSMENT: 75-year-old male with past medical history of end stage renal disease on hemodialysis admitted at this time because of fluid overload secondary to noncompliance with hemodialysis. PLAN: 1. Shortness of breath and fluid overload. The patient got hemodialysis done yesterday. Ultrafiltration was 3 liters. The patient is getting another session of hemodialysis. We shall try to remove another 1 to 2 liters of fluid as tolerated by his blood pressure. 2. Diastolic congestive heart failure and pericardial effusion. The patient has pericardial effusion on the CAT scan. I am doing another session of hemodialysis today. Heparin will be held because of the risk of worsening pericardial effusion. There are no signs or symptoms of tamponade at this time. Bedside echocardiogram will be done today to further evaluate the pericardial effusion and the amount of effusion. 3. Hypertension. The patient's blood pressure is acceptable at this time. Continue current dose of clonidine, hydralazine and labetalol. 4. Anemia and end stage renal disease. The patient got packed red blood cells (PRBC) transfusions. Two units were given. His hemoglobin is still suboptimal. He will be started on Aranesp at hemodialysis. 5. End stage renal disease on hemodialysis. The patient is being dialyzed back to back. Today is second session of hemodialysis. If echocardiogram shows significant pericardial effusion, then he will need daily hemodialysis for about a week. 6. Hyponatremia. Hyponatremia was secondary to fluid overload. Sodium has improved to 136 after hemodialysis and ultra filtration.
[2016-06-29 20:53] VITALS: BP 141/72
[2016-06-29] MEDS: LEVEMIR (INSULIN DETEMIR) 1 UNITS/0.01ML SC SCH (21:00)
[2016-06-29 21:04] VITALS: BP 141/72
[2016-06-29] MEDS: SIMVASTATIN 20 MG TAB PO SCH (21:42)
[2016-06-29] MEDS: MIRTAZAPINE 15 MG TAB PO SCH (21:42)
[2016-06-29] MEDS: TERAZOSIN 5 MG CAP PO SCH (21:42)
[2016-06-29] MEDS: diphenhydrAMINE 25 MG CAP PO PRN (21:42)
[2016-06-29] MEDS: **hydrALAZINE HCL** 25 MG TAB PO SCH (21:43)
[2016-06-30 06:00] VITALS: BP 140/67
[2016-06-30 06:13] LABS: MEAN CORPUSCULAR HGB CONC 29.2 g/dl (32.0-36.5); MEAN CORPUSCULAR VOLUME 92.5 fl (80.0-96.0); RED CELL DISTRIBUTION WIDTH 17.4 % (11.5-14.5); WHITE BLOOD COUNT 13.7 K/mm3 (4.0-10.0)
[2016-06-30 06:24] LABS: CALCIUM LEVEL 9.2 MG/DL (8.8-10.2); CREATININE FOR GFR 1.77 MG/DL (0.70-1.30); GLOMERULAR FILTRATION RATE 39.9 (>42); POTASSIUM SERUM 3.7 MEQ/L (3.5-5.1)
[2016-06-30] MEDS: HumaLOG INSULIN (NovoLOG) PER UNIT SC SCH ×4 (07:30→21:00)
[2016-06-30] MEDS: SYMBICORT 160/4.5MCG INHALER 6GM INH SCH ×3 (08:03→21:06)
[2016-06-30] MEDS: TIOTROPIUM INHALER/CAPSULE (SPIRIVA) INH SCH (08:04)
[2016-06-30] MEDS: ALBUTEROL SULFATE 2.5 MG/0.5 ML INH NEB SOLN INH SCH ×3 (08:06→20:00)
--- NOTE | 2016-06-30 09:20 | IPNPDOC ---
Subjective Date Seen The patient was seen on 06/30/16. Subjective Chief Complaint/HPI The patient is a 75-year-old male admitted with a reason for visit of Fluid Overload. Events since last encounter Patient states he is doing well, breathing better. Continues to have hoarseness. Denies fevers, chills, sweats. Constitutional: Denies: Chills, Fever, Malaise Skin: Denies: Rash Pulmonary: Denies: Dyspnea, Cough Cardiovascular: Denies: Chest Pain, Palpitations, Orthopnea Gastrointestinal: Denies: Nausea, Vomiting, Abdominal Pain, Diarrhea, Constipation Genitourinary: Denies: Dysuria Other systems 10 point review systems otherwise negative Objective Physical Examination General Exam: Positive: Alert, No Acute Distress Eye Exam: Positive: Conjunctiva & lids normal ENT Exam: Positive: Mucous membr. moist/pink, Other ENT (hoarseness of voice) Neck Exam: Positive: Supple, Negative: JVD, thyromegaly Chest Exam: Positive: Clear to auscultation, Diminished, Negative: Rales, Rhonchi, Wheezing Heart Exam: Positive: Rate Normal, Regular Rhythm, Normal S1, Normal S2, Murmurs (1/6 systolic ejection murmur, faint heart tones), Negative: Rubs Abdomen Exam: Positive: Normal bowel sounds, Soft, Negative: Tenderness, Hepatospenomegaly Extremity Exam: Positive: Normal pulses, Negative: Clubbing, Cyanosis, Edema Skin Exam: Positive: Nl turgor and temperature, Negative: Rash, Breakdown Assessment /Plan Problems (1) Acute respiratory failure with hypoxia Status: Acute Response to Treatment: Stable Problem Text: Likely to secondary to congestive heart failure with bilateral pleural effusions. However, patient has persistent leukocytosis. Review chest x- ray, and CT scan which showed possible bilateral consolidations. These did not appear to be layering. Started patient on empiric Levaquin. White count down trending. - Diuresis per renal -Levaquin every 48 hours x 4 doses (2) Fluid overload Problem Text: Moderate pleural effusion with pericardial effusion on CT chest. Repeat chest x-ray 06/29/2016 shows persistent bibasilar pleural effusions. Patient had dialysis again 06/29/2016. Volume status is improved, and breathing is improved. Echo cardiology results are pending -Nephrology managing volume status -Follow up echo results; nephrology indicated if there was still significant effusion, the patient would need dialysis for approximately one week (3) Occupational lung disease Status: Chronic Problem Text: No current shortness of breath (4) End stage renal disease on dialysis Status: Chronic Problem Specific Plan: Consult Specialist (5) Diastolic CHF Status: Chronic Problem Specific Plan: Monitor Clinically Problem Text: Hydralazine held due to hypotension. (6) Hypertension Status: Chronic Problem Specific Plan: Monitor Clinically Problem Text: Blood pressure currently stable on home regimen of Clonidine 0.1 mg 3 times a day, labetalol 300 mg twice a day, hydralazine 25 mg twice a day (7) Diabetes Status: Chronic Problem Text: Levemir held for hypoglycemia -SSI (8) CAD in [place] artery Status: Chronic Problem Specific Plan: Monitor Clinically (9) Anemia secondary to renal failure Status: Acute Problem Specific Plan: Consult Specialist, Monitor Clinically Problem Text: Status post 2 units packed red blood cells 06/28/2016. Plan/VTE VTE Prophylaxis Ordered?: Yes (Eliquis) Disposition Pending volume status, hemodialysis, leukocytosis VS, I&O, 24H, [facility] Vital Signs/I&O Vital Signs Date Time Temp Pulse Resp B/P (MAP) Pulse Ox O2 Delivery O2 Flow Rate FiO2 06/30/16 06:00 97.0 85 20 140/67 (91) 100 Nasal Cannula 2.0 I&O- Last 24 Hours up to 6 AM 06/30/16 06:00 Intake Total 340 ml Output Total 1100 ml Balance -760 ml Laboratory Data 24H LABS Laboratory Tests 2 06/29/16 14:45: Bedside Glucose (Misc Panel) 124H 06/29/16 16:51: Bedside Glucose (Misc Panel) 96 06/29/16 20:07: Bedside Glucose (Misc Panel) 116H 06/30/16 05:42: Anion Gap 8, Glomerular Filtration Rate 39.9L, Blood Urea Nitrogen 15, Creatinine 1.77H, Sodium Level 137, Potassium Level 3.7, Chloride Level 102, Carbon Dioxide Level 27, Calcium Level 9.2 CBC/BMP Laboratory Tests 06/30/16 05:42 Red Blood Count 3.83 L, Mean Corpuscular Volume 92.5, Mean Corpuscular Hemoglobin 27.0, Mean Corpuscular Hemoglobin Concent 29.2 L, Red Cell Distribution Width 17.4 H, Calcium Level 9.2 Microbiology Microbiology 06/27/16 Blood Culture - Preliminary, Resulted No Growth after 48 hours. All Specime... MARK BESS MD Jun 30, 2016 09:20
[2016-06-30] MEDS: MIRALAX *UNIT DOSE* 17GM PACKET PO SCH (09:42)
[2016-06-30] MEDS: MULTIVITAMINS/MINERALS THERAP 1 TAB PO SCH (09:42)
[2016-06-30] MEDS: VITAMIN D 1,000 INTERNATIONAL UNITS TABLET PO SCH (09:43)
[2016-06-30] MEDS: cloNIDine 0.1 MG TAB PO SCH ×3 (09:43→21:00)
[2016-06-30] MEDS: SENOKOT S TAB PO SCH ×2 (09:43→21:20)
[2016-06-30] MEDS: PANTOPRAZOLE 40MG TAB (PROTONIX) PO SCH (09:43)
[2016-06-30] MEDS: FERROUS SULFATE 325MG TAB PO SCH ×2 (09:43→21:20)
[2016-06-30] MEDS: APIXABAN 5 MG TAB (ELIQUIS) PO SCH ×2 (09:43→21:21)
[2016-06-30] MEDS: ASPIRIN 81 MG ENTERIC TAB PO SCH (09:43)
[2016-06-30] MEDS: LORazepam 0.5 MG TAB PO PRN ×2 (09:43→17:34)
[2016-06-30] MEDS: LABETALOL 100 MG TAB PO SCH ×2 (09:43→21:00)
[2016-06-30] MEDS: ISOSORBIDE DIN. (ISORDIL) 20 MG TAB PO SCH ×3 (09:43→21:00)
[2016-06-30] MEDS: **hydrALAZINE HCL** 25 MG TAB PO SCH ×2 (09:44→21:21)
--- NOTE | 2016-06-30 12:10 | ECHO ---
DATE OF SERVICE: REFERRING PROVIDER: Dr. Karla Aguiar PATIENT LOCATION: Room 4229. REASON FOR THE ECHOCARDIOGRAM: Pericardial effusion. 2D MEASUREMENTS: IVS: 1.3 cm LVPW: 1.3 cm LV: 4.4 cm RV: 3.4 cm LA: 3.0 cm Aorta: 3.3 cm Tricuspid valve velocity: 2.0 m/s 2D COMMENTS: 1. Technically limited study due to poor acoustic window. Patient had a full echocardiogram on 04/23/2016. 2. Normal left ventricular size with mildly increased left ventricular wall thickness. Left ventricular systolic function appeared to be at the lower limit of normal, 50-55%. There seems to be mild global hypokinesis. 3. Normal left atrium. The right atrium and the right ventricle appeared to be normal. 4. The atrial septum appeared to be normal without evidence of defect or shunt. 5. Normal aortic root. 6. Small pericardial effusion noted, no evidence of cardiac tamponade. 7. Mildly calcified aortic valve, leaflet excursion appeared to be normal. Mildly calcified mitral annulus with normal anterior mitral valve leaflet motion. Normal tricuspid valve. The pulmonic valve and proximal pulmonary artery branches were not well visualized. 8. The inferior vena cava appeared to be normal in size. DOPPLER: Only trace mitral regurgitation and trace tricuspid regurgitation now detected. The calculated pulmonary artery systolic pressure was normal. IMPRESSION: 1. Technically limited study due to poor acoustic window. Patient had a full echocardiogram on 04/23/2016 and, at that time, left ventricular ejection fraction (LVEF) was normal with mild mitral regurgitation and mild tricuspid regurgitation. Trace pericardial effusion was then reported. 2. Low normal global left ventricular systolic function with mild global hypokinesis. 3. Aortic valve sclerosis without any aortic regurgitation or significant aortic stenosis. 4. Mitral annulus calcification with trace mitral regurgitation. 5. Trace tricuspid regurgitation with a normal calculated pulmonary artery systolic pressure. 6. Small pericardial effusion, no evidence of cardiac tamponade. There seems to be now more pericardial effusion. MTDD
[2016-06-30 14:00] VITALS: BP 119/56
[2016-06-30] MEDS: LEVEMIR (INSULIN DETEMIR) 1 UNITS/0.01ML SC SCH (21:00)
[2016-06-30 21:18] VITALS: BP 126/78
[2016-06-30] MEDS: SIMVASTATIN 20 MG TAB PO SCH (21:20)
[2016-06-30] MEDS: MIRTAZAPINE 15 MG TAB PO SCH (21:20)
[2016-06-30] MEDS: diphenhydrAMINE 25 MG CAP PO PRN (21:20)
[2016-06-30] MEDS: TERAZOSIN 5 MG CAP PO SCH (21:21)
--- NOTE | 2016-06-30 22:40 | IPN ---
DATE: 06/30/2016 SUBJECTIVE: The patient was seen and examined at the bedside today in the morning. He does not have any active complaints. He got hemodialysis done yesterday. He tolerated the hemodialysis procedure well. The patient also got an echocardiogram done yesterday and as per echocardiogram report, echocardiogram showed an left ventricular ejection fraction of around 50-55%, and there was a small pericardial effusion with no evidence of cardiac tamponade. REVIEW OF SYSTEMS: The patient denies any fevers, chills, rigors, headaches, nausea, vomiting or chest pain. He does report some baseline shortness of breath. He denies any pain abdomen, constipation, or diarrhea. Rest of review of systems is negative. OBJECTIVE: VITAL SIGNS: Temperature is 97 degrees Fahrenheit. Blood pressure is 140/67, pulse is 85, respiratory rate of 18, saturating 100% on nasal cannula at two liters. INTAKE AND OUTPUT: There is no urine output recorded. He got hemodialysis done yesterday. Ultrafiltration was 1100 mL with hemodialysis. Weight in the bed scale is 92.2 kg. PHYSICAL EXAMINATION: GENERAL: The patient is awake, alert, oriented times three, lying in bed, no apparent distress. HEAD/NECK: Extraocular muscles intact. Pupils equal, round, and reactive to light. Mucous membranes are moist. Neck is supple. There is no jugular venous distention (JVD). The patient as tunneled right internal jugular (IJ) hemodialysis catheter. CARDIOVASCULAR: S1, S2. Regular rate. No murmur, rub, or gallop. RESPIRATORY: Decreased breath sounds at the bases and mild crepitations on deep inspiration. ABDOMEN: Soft, obese. Positive bowel sounds. Nontender. no ascites. No organomegaly. EXTREMITIES: No clubbing or cyanosis. No edema of the bilateral lower extremities. CENTRAL NERVOUS SYSTEM (BIOMEDICAL ENGINEER): No focal neurological deficit. Power is 5/5 in all extremities. LABORATORY DATA: CBC showed a WBC 13.7, hemoglobin 10.3, platelets of 494. BMP showed sodium 137, potassium 3.7, chloride 102, bicarbonate 27, BUN is 15, creatinine 1.7, GFR today is about 39, calcium 92. ECHOCARDIOGRAM: Echocardiogram showed left ventricular ejection fraction is low-normal around 50-55%. Mitral calcification with trace mitral regurgitation, trace tricuspid regurgitation, and small pericardial effusion with no evidence of cardiac tamponade. CURRENT MEDICATIONS: The patient's current medications were all reviewed by me. There is no change in the medications today as compared with yesterday. ASSESSMENT: A 75-year-old male with a past medical history of end-stage renal disease, currently hemodialysis dependent, admitted this time because of fluid overload secondary to noncompliance with hemodialysis. PLAN: 1. Shortness of breath and fluid overload. The patient has been dialyzed [id number] for two days. Volume status is optimized. There is no urgent need to do another hemodialysis today. 2. Pericardial effusion and diastolic congestive heart failure. The patient got a repeat echocardiogram done yesterday. It showed a small amount of effusion. There is no cardiac tamponade. The patient was dialyzed yesterday without heparin. We shall continue to dialyze the patient without heparin. There is no need of dialysis again today because blood urea nitrogen (BUN) level is less than 20 at this time. The patient will be dialyzed again tomorrow for clearance only. 3. Hypertension. Blood pressure is acceptable at this time. Continue current dose of labetalol, hydralazine and clonidine. 4. Anemia in end-stage renal disease. The patient's hemoglobin is 10.3, which is acceptable at this time. He got a dose of Aranesp 300 mcg IV with hemodialysis yesterday as well. 5. End-stage renal disease on hemodialysis. The patient got two sessions of hemodialysis as outpatient. He is not compliant with hemodialysis sessions. He finished his dialysis earlier because of pain at the sacral decubitus site. The patient reports that it is easy for him to get hemodialyzed in the bed. When he sits in the chair, he becomes uncomfortable. The patient will be dialyzed again tomorrow morning.
[2016-07-01 05:41] VITALS: BP 156/69
[2016-07-01] MEDS: MULTIVITAMINS/MINERALS THERAP 1 TAB PO SCH (06:02)
[2016-07-01] MEDS: MIRALAX *UNIT DOSE* 17GM PACKET PO SCH (06:02)
[2016-07-01] MEDS: PANTOPRAZOLE 40MG TAB (PROTONIX) PO SCH (06:03)
[2016-07-01] MEDS: ASPIRIN 81 MG ENTERIC TAB PO SCH (06:03)
[2016-07-01] MEDS: FERROUS SULFATE 325MG TAB PO SCH ×2 (06:03→21:40)
[2016-07-01] MEDS: VITAMIN D 1,000 INTERNATIONAL UNITS TABLET PO SCH (06:03)
[2016-07-01] MEDS: APIXABAN 5 MG TAB (ELIQUIS) PO SCH ×2 (06:03→21:38)
[2016-07-01] MEDS: SENOKOT S TAB PO SCH ×2 (06:03→21:40)
[2016-07-01] MEDS: LORazepam 2 MG TAB PO SCH (06:04)
[2016-07-01] MEDS: cloNIDine 0.1 MG TAB PO SCH ×3 (06:04→21:40)
[2016-07-01] MEDS: ISOSORBIDE DIN. (ISORDIL) 20 MG TAB PO SCH ×3 (06:04→21:39)
[2016-07-01] MEDS: **hydrALAZINE HCL** 25 MG TAB PO SCH ×2 (06:04→21:39)
[2016-07-01] MEDS: LABETALOL 100 MG TAB PO SCH ×2 (06:05→21:39)
[2016-07-01] MEDS: HumaLOG INSULIN (NovoLOG) PER UNIT SC SCH ×4 (07:33→21:17)
[2016-07-01] MEDS: ALBUTEROL SULFATE 2.5 MG/0.5 ML INH NEB SOLN INH SCH ×3 (08:00→20:00)
[2016-07-01 08:03] LABS: MEAN CORPUSCULAR HEMOGLOBIN 26.9 pg (27.0-33.0); MEAN CORPUSCULAR HGB CONC 29.2 g/dl (32.0-36.5); MEAN CORPUSCULAR VOLUME 92.2 fl (80.0-96.0); RED CELL DISTRIBUTION WIDTH 17.3 % (11.5-14.5); WHITE BLOOD COUNT 14.5 K/mm3 (4.0-10.0)
[2016-07-01] MEDS: guaiFENesin DM LIQ 10ML UD PO PRN ×2 (08:09→22:18)
[2016-07-01] MEDS: SYMBICORT 160/4.5MCG INHALER 6GM INH SCH ×2 (08:10→20:34)
[2016-07-01] MEDS: TIOTROPIUM INHALER/CAPSULE (SPIRIVA) INH SCH (08:10)
[2016-07-01 08:18] LABS: CALCIUM LEVEL 9.4 MG/DL (8.8-10.2); CREATININE FOR GFR 2.78 MG/DL (0.70-1.30); GLOMERULAR FILTRATION RATE 23.7 (>42); POTASSIUM SERUM 3.8 MEQ/L (3.5-5.1)
[2016-07-01] MEDS ORDERED: HEPARIN 1,000 UNITS/ML 10ML VIAL (FOR RADIOLOGY& DIALYSIS ONLY) XX ONE (10:15)
--- NOTE | 2016-07-01 12:43 | IPN ---
DATE: 07/01/2016 SUBJECTIVE: The patient was seen and examined at the bedside today in the morning during hemodialysis procedure. The patient was tolerating the hemodialysis procedure well. There are no active complaints at this time. REVIEW OF SYSTEMS: The patient denies any fevers, chills, rigors, headaches, nausea, vomiting or chest pain. He does report baseline shortness of breath. He denies any pain abdomen, constipation, or diarrhea. Rest of review of systems is negative. OBJECTIVE: VITAL SIGNS: Temperature is 99.3 degrees Fahrenheit. Blood pressure is 156/69, pulse is 81, respiratory rate of 18, saturating 97% on nasal cannula. INTAKE AND OUTPUT: There is no urine output recorded. Weight in the bed scale is 95 kg. PHYSICAL EXAMINATION: GENERAL: The patient is awake, alert, oriented times three, lying in bed getting hemodialysis done. HEAD/NECK EXAM: Extraocular muscles intact. Pupils equal, round, and reactive to light. Mucous membranes are moist. Neck is supple. There is no jugular venous distention (JVD). He has a tunneled right internal jugular (IJ) hemodialysis catheter. CARDIOVASCULAR: S1, S2. Regular rate. No murmur, rub, or gallop. RESPIRATORY: Decreased breath sounds at the bases and mild crepitations in bases on deep inspiration. Otherwise, no active rales or rhonchi. ABDOMEN: Soft, obese. Positive bowel sounds. Nontender. No ascites. No organomegaly. EXTREMITIES: No clubbing or cyanosis. No edema of the bilateral lower extremities. CENTRAL NERVOUS SYSTEM (MANAGER DOCUMENT): No focal neurological deficit. Power is 5/5 in all extremities. LABORATORY DATA: CBC showed a WBC 14.5, hemoglobin 10.3, platelets of 479. BMP showed sodium 134, potassium 3.8, chloride 100, bicarbonate 26, BUN is 25, creatinine 2.78, calcium 9.4. Microbiology: Blood cultures are negative so far. CURRENT MEDICATIONS: The patient's current medications were all reviewed by me. There is no change in the medications today as compared with yesterday. ASSESSMENT: 75-year-old male with a past medical history of end-stage renal disease, currently hemodialysis dependent, admitted this time because of fluid overload secondary to noncompliance with hemodialysis. PLAN: 1. Shortness of breath and fluid overload. The patient's volume status has been optimized. The patient is being dialyzed today again and we shall get more ultrafiltration done today. 2. Pericardial effusion and diastolic congestive heart failure. Repeat echocardiogram shows slightly increased amount of pericardial effusion. It is most likely secondary to noncompliance with hemodialysis. The patient got two sessions of [id number] hemodialysis over the weekend, this is his third dialysis. We are dialyzing the patient without heparin. 3. Hypertension. Blood pressure is acceptable at this time. Continue current antihypertensives, including clonidine, hydralazine, and labetalol. 4. Anemia in end-stage renal disease. The patient's hemoglobin is stable at 10.3. Continue current dose of Aranesp 300 mcg IV with hemodialysis once a week. 5. End-stage renal disease on hemodialysis. The patient's regular hemodialysis days are Friday, Friday and Friday. He is being dialyzed according to his regular schedule today.
[2016-07-01 14:00] VITALS: BP 140/65
--- NOTE | 2016-07-01 15:20 | IPNPDOC ---
Subjective Date Seen The patient was seen on 07/01/16. Subjective Chief Complaint/HPI The patient is a 75-year-old male admitted with a reason for visit of Fluid Overload. Objective Physical Examination General Exam: Positive: Alert, No Acute Distress Eye Exam: Positive: Conjunctiva & lids normal ENT Exam: Positive: Mucous membr. moist/pink, Other ENT (hoarseness of voice) Neck Exam: Positive: Supple, Negative: JVD, thyromegaly Chest Exam: Positive: Clear to auscultation, Diminished, Negative: Rales, Rhonchi, Wheezing Heart Exam: Positive: Rate Normal, Regular Rhythm, Normal S1, Normal S2, Murmurs (1/6 systolic ejection murmur, faint heart tones), Negative: Rubs Abdomen Exam: Positive: Normal bowel sounds, Soft, Negative: Tenderness, Hepatospenomegaly Extremity Exam: Positive: Normal pulses, Negative: Clubbing, Cyanosis, Edema Skin Exam: Positive: Nl turgor and temperature, Negative: Rash, Breakdown Assessment /Plan Problems (1) Pneumonia Problem Text: D4/10 levo 750 q48H 06/29/16 CXR c LLL infiltrate 06/27/16 BCX - 1/1 06/26/16 WBC 19.1 (2) Acute respiratory failure with hypoxia Status: Acute Response to Treatment: Stable Problem Text: Likely to secondary to congestive heart failure with bilateral pleural effusions. However, patient has persistent leukocytosis. Review chest x- ray, and CT scan which showed possible bilateral consolidations. These did not appear to be layering. Started patient on empiric Levaquin. White count down trending. - Diuresis per renal -Levaquin every 48 hours x 4 doses (3) Fluid overload Problem Text: 2 dialysis/fluid non-compliance (4) Occupational lung disease Status: Chronic Problem Text: No current shortness of breath (5) End stage renal disease on dialysis Status: Chronic Problem Specific Plan: Consult Specialist Problem Text: HD MWF (6) Diastolic CHF Status: Chronic Problem Specific Plan: Monitor Clinically Problem Text: decompensation improved c dialysis 06/29/16 TTE: 1. Technically limited study due to poor acoustic window. Patient had a full echocardiogram on 04/23/2016. 2. Normal left ventricular size with mildly increased left ventricular wall thickness. Left ventricular systolic function appeared to be at the lower limit of normal, 50-55%. There seems to be mild global hypokinesis. 3. Normal left atrium. The right atrium and the right ventricle appeared to be normal. 4. The atrial septum appeared to be normal without evidence of defect or shunt. 5. Normal aortic root. 6. Small pericardial effusion noted, no evidence of cardiac tamponade. 7. Mildly calcified aortic valve, leaflet excursion appeared to be normal. Mildly calcified mitral annulus with normal anterior mitral valve leaflet motion. Normal tricuspid valve. The pulmonic valve and proximal pulmonary artery branches were not well visualized. 8. The inferior vena cava appeared to be normal in size. 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 Plan/VTE VTE Prophylaxis Ordered?: Yes (Eliquis) VS, I&O, 24H, [facility] Vital Signs/I&O Vital Signs Date Time Temp Pulse Resp B/P (MAP) Pulse Ox O2 Delivery O2 Flow Rate FiO2 07/01/16 08:00 Nasal Cannula 3.0 07/01/16 06:05 81 156/69 07/01/16 06:00 99.3 18 97 I&O- Last 24 Hours up to 6 AM 07/01/16 05:59 Intake Total 1050 ml Output Total 0 ml Balance 1050 ml Laboratory Data 24H LABS Laboratory Tests 2 06/30/16 16:25: Bedside Glucose (Misc Panel) 128H 06/30/16 21:11: Bedside Glucose (Misc Panel) 113H 07/01/16 05:10: Bedside Glucose (Misc Panel) 112H 07/01/16 07:14: Anion Gap 8, Glomerular Filtration Rate 23.7L, Blood Urea Nitrogen 25#H, Creatinine 2.78#H, Sodium Level 134L, Potassium Level 3.8, Chloride Level 100, Carbon Dioxide Level 26, Calcium Level 9.4 07/01/16 13:23: Bedside Glucose (Misc Panel) 142H CBC/BMP Laboratory Tests 07/01/16 07:14 Red Blood Count 3.84 L, Mean Corpuscular Volume 92.2, Mean Corpuscular Hemoglobin 26.9 L, Mean Corpuscular Hemoglobin Concent 29.2 L, Red Cell Distribution Width 17.3 H, Calcium Level 9.4 Microbiology Microbiology 06/27/16 Blood Culture - Preliminary, Resulted No Growth after 72 hours. All specime... Rigo Kaba M.D. July 01, 2016 15:20
[2016-07-01] MEDS ORDERED: LevoFLOXacin 750 MG TABLET PO SCH (18:00)
[2016-07-01] MEDS: SIMVASTATIN 20 MG TAB PO SCH (21:39)
[2016-07-01] MEDS: TERAZOSIN 5 MG CAP PO SCH (21:39)
[2016-07-01] MEDS: MIRTAZAPINE 15 MG TAB PO SCH (21:39)
[2016-07-01] MEDS: LEVEMIR (INSULIN DETEMIR) 1 UNITS/0.01ML SC SCH (21:40)
[2016-07-01 22:00] VITALS: BP 136/65
--- NOTE | 2016-07-02 03:10 | REPUSA ---
CLINICAL HISTORY: Left-sided weakness. TECHNIQUE: Multiple axial CT images were obtained through the brain without IV contrast material. COMMENTS: Right frontal subcortical chronic encephalomalacia. There is normal configuration of sella turcica. There are no intra or extra-axial collections. There is no mass effect or midline shift. There is no evidence of hematoma formation. No hydrocephalus is p resent. The ventricles are symmetrical. No abnormal calcifications are present. There is diffuse age-appropriate cerebellar and cerebral atrophy with proportionally dilated ventricl es and cortical sulci. There are bilateral periventricular and subcortical white matter hypolucencies compatible with mild c hronic microvascular disease. Otherwise, no significant focal abnormalities are seen either in the posterior fossa or supratentoria l compartment. IMPRESSION: 1. Age-appropriate cerebellar and cerebral atrophy. 2. Mild chronic microvascular disease. Right frontal subcortical chronic encephalomalacia. 3. No evidence of acute intracranial pathology. Thank you for your kind referral of this patient.
[2016-07-02 06:00] VITALS: BP 132/65
[2016-07-02 07:16] LABS: MEAN CORPUSCULAR HEMOGLOBIN 27.7 pg (27.0-33.0); MEAN CORPUSCULAR HGB CONC 29.7 g/dl (32.0-36.5); MEAN CORPUSCULAR VOLUME 93.3 fl (80.0-96.0); RED CELL DISTRIBUTION WIDTH 17.5 % (11.5-14.5); WHITE BLOOD COUNT 14.7 K/mm3 (4.0-10.0)
[2016-07-02 07:21] LABS: CALCIUM LEVEL 9.3 MG/DL (8.8-10.2); CREATININE FOR GFR 2.06 MG/DL (0.70-1.30); GLOMERULAR FILTRATION RATE 33.5 (>42); POTASSIUM SERUM 4.1 MEQ/L (3.5-5.1)
[2016-07-02] MEDS: HumaLOG INSULIN (NovoLOG) PER UNIT SC SCH (07:30)
[2016-07-02] MEDS: ALBUTEROL SULFATE 2.5 MG/0.5 ML INH NEB SOLN INH SCH (08:00)
[2016-07-02] MEDS: TIOTROPIUM INHALER/CAPSULE (SPIRIVA) INH SCH (08:04)
[2016-07-02] MEDS: SYMBICORT 160/4.5MCG INHALER 6GM INH SCH (08:04)
[2016-07-02] MEDS: LABETALOL 100 MG TAB PO SCH (08:30)
[2016-07-02] MEDS: ASPIRIN 81 MG ENTERIC TAB PO SCH (08:31)
[2016-07-02] MEDS: ISOSORBIDE DIN. (ISORDIL) 20 MG TAB PO SCH (08:31)
[2016-07-02] MEDS: SENOKOT S TAB PO SCH (08:31)
[2016-07-02] MEDS: PANTOPRAZOLE 40MG TAB (PROTONIX) PO SCH (08:31)
[2016-07-02] MEDS: MULTIVITAMINS/MINERALS THERAP 1 TAB PO SCH (08:31)
[2016-07-02] MEDS: FERROUS SULFATE 325MG TAB PO SCH (08:31)
[2016-07-02] MEDS: APIXABAN 5 MG TAB (ELIQUIS) PO SCH (08:31)
[2016-07-02] MEDS: VITAMIN D 1,000 INTERNATIONAL UNITS TABLET PO SCH (08:31)
[2016-07-02 08:32] VITALS: BP 125/58
[2016-07-02] MEDS: cloNIDine 0.1 MG TAB PO SCH (08:32)
[2016-07-02] MEDS: **hydrALAZINE HCL** 25 MG TAB PO SCH (08:32)
[2016-07-02] MEDS: MIRALAX *UNIT DOSE* 17GM PACKET PO SCH (08:32)
[2016-07-02] MEDS ORDERED: LEVA750T PO (09:44)
[2016-07-02] MEDS: LORazepam 0.5 MG TAB PO PRN (10:49)
--- NOTE | 2016-07-02 12:01 | IPN ---
DATE OF SERVICE: 07/02/2016 SUBJECTIVE: The patient was seen and examined at the bedside today in the morning. He is laying in the bed comfortable. No apparent distress at this time. He tolerated the hemodialysis procedure well yesterday. The patient is otherwise hemodynamically stable. REVIEW OF SYSTEMS: The patient denies any fevers, chills, rigors, headache, nausea, vomiting, or chest pain. He does report mild shortness of breath, which is his baseline, and he requires oxygen. He denies any pain abdomen, constipation, or diarrhea. Rest of review of systems is negative. OBJECTIVE: VITAL SIGNS: Temperature is 98.9 degrees Fahrenheit. Blood pressure is 125/58. Pulse is 81. Respiratory rate of 18. Saturating 98% on nasal cannula at 3 liters per minute. INTAKE AND OUTPUT: Urine output recorded is zero. His hemodialysis done yesterday had ultrafiltration of 2.2 liters. Weight in the bed scale is 85.7 kg. PHYSICAL EXAMINATION: GENERAL: The patient is awake, alert, oriented times three, laying in bed, no apparent distress. HEAD AND NECK EXAMINATION: Extraocular muscles intact. Pupils equally round and reactive to light. Mucous membranes are moist. Neck is supple. There is no jugular venous distention (JVD). The patient has a tunneled right internal jugular (IJ) hemodialysis catheter. CARDIOVASCULAR: S1, S2. Regular rate. No murmur, rub, and gallop. RESPIRATORY: Clear to auscultation bilaterally but mild crepitations on deep inspiration at the bases. ABDOMEN: Is soft. Positive bowel sounds. No ascites. No organomegaly. EXTREMITIES: No clubbing or cyanosis. Pulses are 2+. CENTRAL NERVOUS SYSTEM (VISCOSITY INSPECTOR): No focal neurological deficit. Power is 5/5 in all extremities. CBC showed a WBC of 14.7, hemoglobin 11.3, platelets of 538. BMP showed sodium 134, potassium 4.1, chloride 99, bicarbonate 27, BUN 14, creatinine 2.06, calcium 9.3. IMAGING: CAT scan of the head done today showed mild chronic microvascular disease. Right frontal subcortical chronic encephalomalacia. There was no acute intracranial pathology. CURRENT MEDICATIONS: The patient's medications were all reviewed by me. There is no change in the medications today as compared with yesterday. He was started on Levaquin 750 mg by mouth every 48 hours. The first dose was given on 07/01/2016, yesterday. ASSESSMENT: A 75-year-old male with past medical history of end-stage renal disease, on hemodialysis every Friday, Friday, Friday, admitted this time because of fluid overload secondary to noncompliance with hemodialysis. PLAN: 1. Shortness of breath and fluid overload. The patient's symptoms have improved. His volume status is optimized. He will continue the hemodialysis Friday, Friday, Friday and get ultrafiltration with hemodialysis. 2. Diastolic congestive heart failure and pericardial effusion. The patient has a mild amount of pericardial effusion on the echocardiogram. The patient is noncompliant with hemodialysis and usually finishes dialysis earlier. He was instructed to follow his dialysis regimen. His laboratories and electrolytes are almost close to normal. No urgent need of daily dialysis at this time. Next hemodialysis session will be tomorrow. 3. Hypertension. Blood pressure is acceptable at this time. Continue antihypertensive regimen. 4. Anemia in end-stage renal disease. The patient's hemoglobin is 11.3, which is slightly above target. The rest of the anemia management is as per outpatient anemia protocol in dialysis center. 5. End-stage renal disease, on hemodialysis. The patient's regular days are Friday, Friday, Friday. Next hemodialysis session will be tomorrow as outpatient. DISCHARGE PLANNING: It is okay to discharge the patient from nephrology standpoint. He will be followed up as outpatient by nephrology service during hemodialysis sessions.
--- NOTE | 2016-07-02 15:47 | DSES ---
DATE OF ADMISSION: 06/27/2016 DATE OF DISCHARGE: 07/02/2016 PRIMARY CARE PROVIDER (PCP): Dr. Bradley Johnston ATTENDING TODAY: Dr. Rigo Kaba HISTORY: This is an 75-year-old male resident of [facility] who presented to [facility] emergency room for the second day in a row with increasing shortness of breath and noted during dialysis. The patient had refused admission initially, although at this presentation, he was more willing to be admitted. He appeared to have fluid overload and has a history of end-stage renal disease on chronic dialysis. Dr. Sanabria felt as though he needed emergent dialysis for fluid removal. During his hospitalization, he has remained medically stable. He has been followed by nephrology, who ordered dialysis for his diastolic congestive heart failure with pericardial effusions. A repeat echocardiogram did show slight increase in the pericardial effusion, likely secondary to the patient's noncompliance with his hemodialysis in the outpatient setting. He did receive two [id number] sessions of hemodialysis over the weekend. His third dialysis session was on Friday, and he seemed to tolerate this well. His respiratory status and his fluid status overall has improved. He does have a history of anemia associated with chronic disease. His hemoglobin on admission was 7.1. Again, this is felt to be likely dilutional. He did receive 2 units of packed red blood cells. His hemoglobin on day of discharge is 11.3. He also was felt to have a left lower lobe infiltrate on chest x-ray and presented with leukocytosis. He was therefore started on Levaquin 750 mg every 48 hours. He was continued on many of his home medications during his hospitalizations. DISCHARGE DIAGNOSES: Include: 1. Acute on chronic diastolic congestive heart failure. 2. Acute respiratory failure with hypoxemia. 3. Left lower lobe pneumonia. 4. End-stage renal disease on dialysis. 5. Anemia of chronic disease. 6. Hypertension. DISCHARGE MEDICATIONS: - levofloxacin 750 mg every 48 hours; he will need three additional doses for six additional days of coverage - acetaminophen 650 mg by mouth or per rectum every 4 hours as needed for pain or fever. - albuterol sulfate 2.5 mg inhaled every 4 hours as needed for shortness of breath and three times daily - Eliquis 5 mg by mouth twice a day - aspirin 81 mg daily - bisacodyl 10 mg per rectum daily as needed for constipation. - Symbicort 160/4.5 two puffs inhaled twice a day - vitamin D 1000 units daily - clonidine 0.1 mg by mouth three times a day - Benadryl 25 mg by mouth daily as needed for insomnia - Senna 1 tablet by mouth twice a day - Fleet enema daily as needed for constipation - Ensure 120 mL by mouth three times a day - Lexapro 10 mg by mouth daily - ferrous sulfate 325 mg by mouth twice a day - guaifenesin 100/10 mL by mouth every 4 hours as needed for cough - hydralazine 25 mg by mouth twice a day - Lantus 32 units before bed - isosorbide dinitrate 20 mg by mouth twice a day - Labetalol 300 mg by mouth twice a day - lorazepam 0.5 mg every 6 hours as needed for anxiety - lorazepam 2 mg by mouth three times weekly on dialysis days - mirtazapine 15 mg by mouth before bed - multivitamin one tablet daily - Protonix 40 mg by mouth daily - MiraLax 17 grams by mouth daily - simvastatin 20 mg by mouth daily - saline nasal spray every 2 hours as needed for nasal dryness - terazosin 5 mg by mouth nightly - Spiriva inhaled daily DISCHARGE PLAN: Will follow up with Dr. Johnston. Follow up with nephrology. Activity should be as tolerated. Diet should be consistent carbohydrate, no added salt, 1500 mL fluid restriction.
== END 2016-07-02 11:26 | DRG 291 ==
LOC: M ED 19:43 → M ED INP 23:30 → M MSPAV 06-28 00:25
PROVIDERS: ADMIT Internal Medicine; ATTEND Family Medicine
PROC: 5A1D60Z (ICD-10-PCS; principal; 2016-06-28)
PROC: 30253N1 (ICD-10-PCS; 2016-06-28)
DX: I13.2 Hypertensive heart and chronic kidney disease with heart failure and with stage 5 chronic kidney disease, or end stage renal disease (principal); N18.6 End stage renal disease; J96.01 Acute respiratory failure with hypoxia; I50.33 Acute on chronic diastolic (congestive) heart failure; J18.9 Pneumonia, unspecified organism; J90 Pleural effusion, not elsewhere classified; I31.3 Pericardial effusion (noninflammatory); E87.1 Hypo-osmolality and hyponatremia; E87.70 Fluid overload, unspecified; J98.4 Other disorders of lung; I25.10 Atherosclerotic heart disease of native coronary artery without angina pectoris; I25.2 Old myocardial infarction; M10.9 Gout, unspecified; N40.1 Benign prostatic hyperplasia with lower urinary tract symptoms; R33.9 Retention of urine, unspecified; G47.33 Obstructive sleep apnea (adult) (pediatric); E78.5 Hyperlipidemia, unspecified; L89.152 Pressure ulcer of sacral region, stage 2; Z96.653 Presence of artificial knee joint, bilateral; Z90.49 Acquired absence of other specified parts of digestive tract; Z86.711 Personal history of pulmonary embolism; Z99.2 Dependence on renal dialysis; Z87.891 Personal history of nicotine dependence; F41.9 Anxiety disorder, unspecified; E11.649 Type 2 diabetes mellitus with hypoglycemia without coma; D63.1 Anemia in chronic kidney disease; Z91.15 Patient's noncompliance with renal dialysis; E66.9 Obesity, unspecified; Z68.27 Body mass index [BMI] 27.0-27.9, adult; D72.829 Elevated white blood cell count, unspecified

== ENCOUNTER → 2016-07-23 | Outpatient (REF) ==
[~2016-07-23] MED LIST changes: +CLON-412 PO; +IPRASOL4 INH; +LABE30TA PO; +LEVA750T PO; +LORA2TAB9 PO; +MIRA33504 PO; +MIRT15TA3 PO; +SALI0.652; +VITA100066 PO
--- NOTE | 2016-07-23 15:41 | REP ---
Clinical: Shoulder pain. Technique: Internal rotation, external rotation, and Y view. Findings: Cortical irregularity and spurring along the inferior margin of the acromioclavicular joint is appreciated. The glenohumeral joint demonstrates a irregular contour and sclerosis to the glenoid rim along with presumed subchondral sclerosis and subtle cystic changes involving the humeral head. Subacromial space is normal. No obvious periarticular calcifications are appreciated. There is no evidence for acute fracture dislocation. Impression: Moderate arthritic degenerative changes as described above. Signed by Johnny Berrios MD 07/23/2016 03:32 P
== END ==
LOC: SKLAB7 13:44
PROVIDERS: ATTEND Family Medicine
DX: M19.012 Primary osteoarthritis, left shoulder (principal)

== ENCOUNTER → 2016-09-24 | Outpatient (CLI) | payer MEDICARE, MEDICAID ==
[~2016-09-24] MED LIST changes: -ACET-71 PO; +ACET1TAB16 PO; -ACET650T2 PO; +ACET650T3 PO; +ASPI1TAB15 PO; -ASPI81TA7 PO; +FERR1TAB8 PO; -FERR325T PO; +HEPARIN 1,000 UNITS/ML 10ML VIAL (FOR RADIOLOGY& DIALYSIS ONLY) ONE; +HYDR-3910 PO; -HYDR-4266 PO; +ISOVUE-300 61% 50ML VIAL (Q9967) ONE; +LEVA1TAB2 PO; -LEVA500T PO; -LEVA750T PO; +LEVA750T7 PO; -LORA-376 PO; +LORA0.5T11 PO; +PLAV1TAB2 PO; -PLAV75TA38 PO; +VITA-182 PO; -VITA100041 PO
--- NOTE | 2016-09-24 16:38 | REP ---
C-ARM VIEWS DURING RIGHT DIALYSIS CATHETER CHECK: Multiple C-ARM views of the chest are performed. Contrast was injected through the right sided dialysis catheter. Contrast opacifies the superior vena cava. A balloon is infiltrated in the superior vena cava. 0.7 minutes of fluoroscopy time was utilized. Signed by Jhony Shabazz MD 09/26/2016 05:47 P
--- NOTE | 2016-10-10 06:15 | RO ---
DATE OF PROCEDURE: 09/24/2016 PREPROCEDURE DIAGNOSES: End stage renal disease, dysfunctional right internal jugular vein PermaCath. POSTPROCEDURE DIAGNOSES: End stage renal disease, dysfunctional right internal jugular vein PermaCath. PROCEDURE: Right internal jugular vein PermaCath flow study, removal of right internal jugular vein PermaCath with cut down, right innominate vein angioplasty with 14 x 40 mm [place] balloon, right superior vena cava angioplasty with 14 x 40 [place] balloon, reinsertion of a 19 cm tipped cuff Palindrome central venous tunneled catheter. SURGEON: Dr. Pino Gna. SURGICAL INSTRUMENT TECHNICIAN: Carmela Young and Fidelia Warner. ANESTHESIA: Local with 10 mL of 2% lidocaine. ESTIMATED BLOOD LOSS: FLUORO TIME: 1.3 minutes. CONTRAST: 2.5 mL. COMPLICATIONS: None. DRAINS: None. SPECIMENS: None. IMPLANTS: Right internal jugular vein 19 cm tipped cuffed Palindrome catheter. INDICATION: Patient is a 76-year-old male who dialyzed through a right internal jugular vein PermaCath which has been unable to be used for hemodialysis due to lack of flow through the catheter. Patient will undergo a catheter flow study with possible replacement of the catheter as well as angioplasty and/or stenting. Risks, benefits and alternative treatment options were discussed with the patient. Alternative treatment options included but were not limited to no intervention. Benefits included but were not limited to return of functioning to the central venous tunneled catheter and usability for hemodialysis. Risks included but were not limited to infection, bleeding, pneumothorax, hemothorax, possible need for open surgical intervention, cerebrovascular accident, myocardial infarction, pulmonary embolus, deep venous thrombosis (DVT), loss of limb, loss of life and poor outcome. Patient understands, accepts these risks and consents to proceed. PROCEDURE: The patient was taken to the angiography suite and placed supine on the angiography room table and then prepped and draped in a standard surgical fashion. A time out was completed with myself and the members in the room confirming the correct patient, procedure and laterality. A [place] wire was advanced through the catheter and then manual traction was applied to the catheter which did not release the subcutaneous cuff spontaneously. The skin overlying the catheter and subcutaneus cuff were then anesthetized with 2% lidocaine. The cuff was sharply dissected free through the entry site in the right chest and the catheter was pulled back such the tip was in the right internal jugular vein/innominate vein junction and a catheter flow study was performed which showed a fibrin sheath extending along the tract of the catheter into the superior vena cava/right atrial junction. The superior vena cava was then angioplastied with a 14 mm x 40 mm Brew[place] balloon. The right innominate vein was angioplastied with a 14 mm x 40 mm Brew[place] balloon. A completion catheter flow study showed resolution of the fibrin sheath. The old catheter was removed and a new 19 cm tipped cuffed Palindrome was placed over the [place] wire with the tip in the superior vena cava/right atrial junction. Both ports of the catheter were aspirated and noted to aspirate easily and then flushed with heparinized saline. Catheter was secured to the anterior chest wall using #2-0 Prolene suture after anesthetizing the overlying skin with 2% lidocaine. Dressings were then applied. Patient tolerated the procedure well. All instrument, sponge and needle counts were correct at the end of the case. There were no complications. Dr. Gan was present for and directed the entire case. Patient was transferred to the holding area and subsequently discharged in stable condition. The right internal jugular vein PermaCath is stable for use for hemodialysis access. RADIOLOGIC SUPERVISION INTERPRETATION: The catheter flow study showed a fibrin sheath extending from the internal jugular vein through the innominate vein and into the superior vena cava. The superior vena cava and right innominate vein were angioplastied with a 14 mm x 40 m Brew[place] balloon with a followup catheter flow study showing resolution of the fibrin sheath. A new catheter was inserted with final fluoroscopic image showing the catheter to be in good position and good alignment with the tip in the superior vena cava/right atrial junction. The PermaCath is stable for use for hemodialysis access.
== END | disposition home or self-care (01) ==
LOC: M IRPRO 13:08
PROVIDERS: ATTEND Internal Medicine Nephrology
DX: T82.49XA Other complication of vascular dialysis catheter, initial encounter (principal); N18.6 End stage renal disease
CPT/HCPCS: 36581; 36595; 75901; C1725; C1750; C1769; Q9967

== ENCOUNTER 2017-01-19 19:00 | Inpatient (IN) | payer MEDICARE, MEDICAID ==
[~2017-01-19] VITALS: Ht 185.4 cm; Wt 99.3 kg
[~2017-01-19 19:00] MED LIST changes: -HEPARIN 1,000 UNITS/ML 10ML VIAL (FOR RADIOLOGY& DIALYSIS ONLY) ONE; -ISOVUE-300 61% 50ML VIAL (Q9967) ONE
[2017-01-19] MEDS ORDERED: INSUHUMDS SC (19:35)
[2017-01-19] MEDS ORDERED: SEVE800T3 PO (19:35)
[2017-01-19] MEDS ORDERED: DOXY-278 PO (19:35)
[2017-01-19] MEDS ORDERED: FLUC10TA PO (19:35)
[2017-01-19 20:11] LABS: BASO # 0.1 10^3/uL (0.0-0.2); BASO % 0.3 % (0.0-1.0); EOS % 0.2 % (0.0-3.0); IMMATURE GRANULOCYTE % 0.7 % (0-0); LYMPH # 1.3 10^3/uL (1.5-4.5); LYMPH % 5.4 % (24.0-44.0); MEAN CORPUSCULAR HEMOGLOBIN 31.1 pg (27.0-33.0); MEAN CORPUSCULAR HGB CONC 31.5 g/dl (32.0-36.5); MEAN CORPUSCULAR VOLUME 98.9 fl (80.0-96.0); MONO # 1.3 10^3/uL (0.0-0.8); MONO % 5.2 % (0.0-5.0); NEUTROPHILS % 88.2 % (36.0-66.0); PLATELET COUNT, AUTOMATED 206 10^3/uL (150-450); RED CELL DISTRIBUTION WIDTH 18.1 % (11.5-14.5); WHITE BLOOD COUNT 23.8 10^3/uL (4.0-10.0)
[2017-01-19 20:38] LABS: ALBUMIN 3.2 GM/DL (3.2-5.2); ALBUMIN/GLOBULIN RATIO 0.86 (1.00-1.93); BILIRUBIN,DIRECT 0.2 MG/DL (0.0-0.2); BILIRUBIN,TOTAL 0.6 MG/DL (0.2-1.0); CALCIUM LEVEL 8.7 MG/DL (8.8-10.2); CREATININE FOR GFR 2.36 MG/DL (0.70-1.30); GLOMERULAR FILTRATION RATE 28.6 (>42); POTASSIUM SERUM 3.2 MEQ/L (3.5-5.1); TOTAL PROTEIN 6.9 GM/DL (6.4-8.2)
--- NOTE | 2017-01-19 20:52 | REP ---
Clinical: Cough. Comparison: 06/29/2016. Findings: Double-lumen central venous catheter with tip in the SVC. Mild cardiomegaly remains stable. Chronic interstitial changes and pulmonary vascular congestion cannot be excluded along with trace left lower lobe atelectasis. No obvious effusion. No pneumothorax. Skeletal structures are intact. Impression: Chronic pulmonary vascular congestion cannot be excluded. Possible left lower lobe atelectasis. Signed by Johnny Berrios MD 01/19/2017 08:44 P
--- NOTE | 2017-01-19 20:58 | REP ---
Clinical: Cough. Right lower lobe infiltrate by auscultation. Comparison: 06/27/2016. Findings: Double-lumen dialysis catheter extends to the SVC and chronic, stable cardiomegaly and chronic pulmonary vascular congestion is suggested along with chronic bibasilar fibroatelectatic changes. Previous pericardial effusion, bibasilar atelectasis and small pleural effusions have resolved. New subpleural 18 mm mass / consolidation and smaller adjacent soft tissue nodules are appreciated within the left upper lobe (images 29 - 50). No definite adenopathy. No pleural effusion/pneumothorax. No pericardial effusion. Tracheobronchial tree is patent. Extensive atherosclerotic changes to the thoracic aorta and coronary arteries noted. Surrounding musculoskeletal structures demonstrate age-related degenerative changes. Impression: 1. 18 mm mass / consolidation in the subpleural left upper lobe with adjacent noncalcified nodules measuring up to 11 mm. Differential diagnosis includes early acute pneumonia as well as malignancy. 3-month follow-up is recommended. 2. Chronic stable changes as described above. Previously identified pericardial effusion, small pleural effusions and bibasilar atelectasis have resolved. Signed by Johnny Berrios MD 01/19/2017 08:50 P
[2017-01-19] MEDS ORDERED: VANCOMYCIN HCL 1,000 MG, VIAL MATE ADAPTER 1 EACH in D5W 250 ML IV ONE (21:15)
[2017-01-19] MEDS ORDERED: PIPERACILLIN/TAZOBACTAM SOD 2.25 GM in APPROPRIATE DILUENT 1 EA IV ONE (21:15)
[2017-01-19] MEDS ORDERED: KION15SU PO (22:01)
[2017-01-19] MEDS ORDERED: PANT20TA PO (22:01)
[2017-01-19] MEDS ORDERED: DULE200A INH (22:01)
[2017-01-19] MEDS ORDERED: LORA0.5T11 PO (22:01)
[2017-01-19] MEDS ORDERED: LIDO1CRE14 TOP (22:01)
[2017-01-19] MEDS ORDERED: guaiFENesin DM LIQ 10ML UD PO PRN (22:30)
[2017-01-19] MEDS ORDERED: ACETAMINOPHEN 325 MG TAB PO PRN (22:30)
[2017-01-19] MEDS ORDERED: SODIUM CHLORIDE NASAL 0.65% SPRAY BTL (OCEAN) PRN (22:30)
[2017-01-19] MEDS ORDERED: LORazepam 0.5 MG TAB PO PRN (22:30)
[2017-01-19] MEDS ORDERED: FLEET ENEMA PR PRN (22:30)
[2017-01-19] MEDS ORDERED: BISACODYL 10 MG SUPP PR PRN (22:30)
[2017-01-19 23:00] VITALS: BP 128/59
[2017-01-20] MEDS: **hydrALAZINE HCL** 25 MG TAB PO SCH ×3 (00:14→21:23)
[2017-01-20] MEDS: cloNIDine 0.1 MG TAB PO SCH ×3 (00:15→21:25)
[2017-01-20] MEDS: SENOKOT S TAB PO SCH ×3 (00:29→20:56)
[2017-01-20] MEDS: FERROUS SULFATE 325MG TAB PO SCH ×2 (00:29→09:14)
[2017-01-20] MEDS: MIRTAZAPINE 15 MG TAB PO SCH ×2 (00:30→20:55)
[2017-01-20] MEDS: SIMVASTATIN 20 MG TAB PO SCH ×2 (00:30→20:55)
[2017-01-20] MEDS: ISOSORBIDE DIN. (ISORDIL) 20 MG TAB PO SCH ×4 (00:30→21:29)
[2017-01-20] MEDS: LEVEMIR (INSULIN DETEMIR) 1 UNITS/0.01ML SC SCH ×2 (00:31→21:26)
[2017-01-20] MEDS: APIXABAN 5 MG TAB (ELIQUIS) PO SCH ×3 (00:31→20:51)
[2017-01-20] MEDS: LABETALOL 100 MG TAB PO SCH ×3 (00:42→21:29)
[2017-01-20] MEDS: TERAZOSIN 5 MG CAP PO SCH ×2 (00:43→21:26)
[2017-01-20] MEDS ORDERED: GLUCAGON FOR INJ 1 MG VIAL (J1610) SC PRN ×2 (01:00)
[2017-01-20] MEDS ORDERED: GLUCOSE 4 GM CHEW TABLET PO PRN ×2 (01:00)
[2017-01-20] MEDS ORDERED: DEXTROSE 50% 50 ML SYRINGE IV PRN ×2 (01:00)
[2017-01-20] MEDS: HumaLOG INSULIN (NovoLOG) PER UNIT SC SCH ×5 (01:17→20:11)
--- NOTE | 2017-01-20 03:13 | PHACANCOPD ---
PHARMACY VANCOMYCIN DOSING Pt Demographics Demographics Patient Age:76 , Weight:94.200 , Gender: male Adjusted Body Weight Date: 01/20/17, Adjusted Body Weight: [83] Kg Vancomycin Vancomycin indication: HCAP/SEPSIS Vancomycin Target Ranges: 15-20 mcg/ml Vancomycin Load Y/N: No Load Dose Date Time Vancomycin Load Dose: Date: Time: Vancomycin Dose Date: 01/20/17. Current Vancomycin Dose: [1 GM IV Q24H] Intermittent Dosing?: No Labs Labs Laboratory Tests 01/19/17 19:59 Red Blood Count 3.50 L, Mean Corpuscular Volume 98.9 H, Mean Corpuscular Hemoglobin 31.1, Mean Corpuscular Hemoglobin Concent 31.5 L, Red Cell Distribution Width 18.1 H, Neutrophils (%) (Auto) 88.2 H, Lymphocytes (%) (Auto ) 5.4 L, Monocytes (%) (Auto) 5.2 H, Eosinophils (%) (Auto) 0.2, Basophils (%) ( Auto) 0.3, Neutrophils # (Auto) 21.0 H, Lymphocytes # (Auto) 1.3 L, Monocytes # (Auto) 1.3 H, Eosinophils # (Auto) 0.0, Basophils # (Auto) 0.1 Micro Microbiology 01/19/17 Blood Culture, Received Pending 01/19/17 Blood Culture, Received Pending 01/19/17 Respiratory Virus Panel (PCR) (MICKEY) - Final, Complete 01/19/17 Urine Culture, Received Pending Creatinine Clearance Date:01/20/17. Creatinine Clearance: [30.1]CALCULATED. Assessment and Plan Maintaining Current Dose?: Yes Reason for dose change: No Dose Change Pharmacist Note Pharmacist Note Date: 01/20/17. Pharmacist note:76 YOM ADMITTED AFTER DIALYSIS .Fever, Possible HCAP/Sepsis.70",98kg( abw=83kg)SCR=2.36,Calculated CRCL=30.1.Received Pip/Tazo 2.25gm + Vancomycin 1 GM in ED 01/19.Will continue Vancomycin at 1 Gram Q24 hours.(pip/Tazo = 2.25 Grams IV [id number].Will continue to follow labs [facility] Jan 20, 2017 03:13
[2017-01-20] MEDS: PIPERACILLIN/TAZOBACTAM SOD 2.25 GM in APPROPRIATE DILUENT 1 EA IV SCH ×3 (05:10→20:56)
[2017-01-20 06:00] VITALS: BP 113/55
--- NOTE | 2017-01-20 06:34 | HPE ---
DATE OF ADMISSION: 01/19/2017 The patient, Davin Snyder is a 76-year-old male. The patient comes in, sent by the senior living after being found to have a low blood pressure and not feeling well. PREVIOUS MEDICAL HISTORY: 1. Chronic lung disease, suspicion for occasional chronic lung disease and chronically on oxygen. 2. Hypertension. 3. Coronary artery disease with history of myocardial infarction (RI). 4. Diastolic congestive heart failure (CHF). 5. Gout. 6. Type 2 diabetes mellitus with insulin. 7. Benign prostatic hypertrophy (BPH). 8. End-stage renal disease (ESRD) on hemodialysis. 9. History of pulmonary embolus (PE). 10. Gastrointestinal (GI) bleed. 11. Obstructive sleep apnea. 12. Hyperlipidemia. PAST SURGICAL HISTORY: 1. Appendectomy. 2. Partial colectomy. 3. Cholecystectomy. 4. Bilateral knee replacements. SOCIAL HISTORY: The patient is a former smoker, does not drink alcohol. Lives in a senior living, is not a drug user. The patient was apparently not feeling well status post being sent to hemodialysis. REVIEW OF SYSTEMS: The patient notes generalized malaise only, does not describe any other significant complaints. HOME MEDICATIONS: - acetaminophen 650 both per rectal and by mouth - albuterol nebs - ipratropium nebs - pantoprazole - sodium polystyrene sulfate - apixaban - aspirin - bisacodyl - cholecalciferol - clonidine - hydrochloride - docusate sodium - senna - enema disposable as needed - escitalopram oxalate - ferrous sulfate - guaifenesin - hydralazine - insulin glargine 28 units subcutaneous (sc) nightly - labetalol - lorazepam - multivitamins - polyethylene Glycol - Levemir - simvastatin - Saline Mist - terazosin ALLERGIES: The patient has no known drug allergies. PHYSICAL EXAMINATION: The patient is lying prone, only able to sit up with difficulty. VITAL SIGNS: Temperature 97.6, pulse 82, respiratory rate 20, blood pressure 128/59. The patient is not found to be out of normal limits in any of the vital checks since being brought to the emergency department (ED). The patient is awake, alert and oriented times three. Head is normocephalic atraumatic. No apparent lymphadenopathy. Abdomen is obese, soft, nontender to palpation. The patient with S1, S2. The with inspiratory crackles in all lung ramirez. The patient is not feeling short of breath; however, though the patient is on 2 liters nasal cannula. LABORATORY RESULTS: WBC count 23.8, hemoglobin 10.9, hematocrit 34.6. Chemistries: Sodium 136, potassium 3.2, chloride 95, carbon dioxide 32, anion gap 9, BUN 20. creatinine 2.36, status post hemodialysis fasting glucose 120, lactic acid 1.5, calcium 8.7. Urinalysis is consistent with a urinary tract infection (UTI). IMAGING: Chest CT shows 18 mm mass consolidation subpleural left upper lobe with adjacent noncalcified nodule measuring up to 11 mm. DIFFERENTIAL DIAGNOSIS: Early acute pneumonia as well as malignancy. Three month followup is recommended. Chronic stable changes as described above. Previously identified pericardial effusion, small pleural effusion, bilateral atelectasis have resolved. Chest x-ray shows chronic pulmonary vascular congestion cannot be excluded, possible left lower lobe atelectasis. PLAN: The patient is a 76-year-old male who comes in with the chief complaint of generalized malaise, measure of hypertension not repeated here. The patient is to be admitted under the impression of health care associated pneumonia (HCAP) with urinary tract infection (UTI). The patient does not meet sepsis criteria. The patient also on hemodialysis. The patient will get fluids with intravenous antibiotics preparation. No fluids unless blood pressure notes it versus worsening of the patient's condition vitally such as fever spikes, or meeting sepsis criteria. For the patient's respiratory disease. DuoNebs in place of the patient's multiple medications. Hypertension. Continue the patient's home medications. Anxiety. Continue the patient's home medications. Coronary artery disease. Continue the patient's home medications. Gastrointestinal (GI) prophylaxis/gastroesophageal reflux disease (GERD). Continue proton pump inhibitor (PPI). Deep venous thrombosis (DVT) prophylaxis. The patient is on Eliquis already. Continue the Eliquis. For patient's diabetes. Hold oral meds, insulin sliding scale. Continue the patient's other insulin dosing for long acting and short acting.
[2017-01-20 06:49] LABS: MEAN CORPUSCULAR HEMOGLOBIN 30.6 pg (27.0-33.0); MEAN CORPUSCULAR HGB CONC 31.1 g/dl (32.0-36.5); MEAN CORPUSCULAR VOLUME 98.5 fl (80.0-96.0); PLATELET COUNT, AUTOMATED 190 10^3/uL (150-450); RED CELL DISTRIBUTION WIDTH 17.9 % (11.5-14.5); WHITE BLOOD COUNT 16.9 10^3/uL (4.0-10.0)
[2017-01-20 06:50] LABS: CALCIUM LEVEL 8.9 MG/DL (8.8-10.2); CREATININE FOR GFR 2.87 MG/DL (0.70-1.30); GLOMERULAR FILTRATION RATE 22.8 (>42); POTASSIUM SERUM 3.3 MEQ/L (3.5-5.1)
[2017-01-20] MEDS ORDERED: DARBEPOETIN 100 MCG/0.5 ML *DIALYSIS* SYRINGE (J0882) IV SCH (08:00)
[2017-01-20] MEDS ORDERED: HEPARIN SOD (PORCINE) 5000 UNITS/ML VIAL SC SCH (09:00)
--- NOTE | 2017-01-20 09:07 | PHACANCOPD ---
PHARMACY VANCOMYCIN DOSING Pt Demographics Demographics Patient Age:76 , Weight:94.200 , Gender: male Adjusted Body Weight Date: 01/20/17, Adjusted Body Weight: [83] Kg Events Past 24 Hours Events Past 24 Hours: YES: Dialysis, Fever, Elevation in WBC, NO: Diuretic Therapy, Change in CrCl, Pending Diagnostics, Pending Procedures , Other Vancomycin Vancomycin indication: HCAP/SEPSIS Vancomycin Target Ranges: 15-20 mcg/ml Vancomycin Load Y/N: No Load Dose Date Time Vancomycin Load Dose: Date: Time: Vancomycin Dose Date: 01/20/17. Current Vancomycin Dose: [1 GM IV HD] Intermittent Dosing?: No Labs Micro Microbiology 01/19/17 Blood Culture, Received Pending 01/19/17 Blood Culture, Received Pending 01/19/17 Respiratory Virus Panel (PCR) (MICKEY) - Final, Complete 01/19/17 Urine Culture, Received Pending Creatinine Clearance Date:01/20/17. Creatinine Clearance: [30.1]CALCULATED. Assessment and Plan Maintaining Current Dose?: No Reason for dose change: Other Pharmacist Note Pharmacist Note 01/20/17: Patient receives dialysis on a set schedule. I have changed Vanco to 1G HD. We will continue to monitor patient. Date: 01/20/17. Pharmacist note:76 YOM ADMITTED AFTER DIALYSIS .Fever, Possible HCAP/Sepsis.70",98kg( abw=83kg)SCR=2.36,Calculated CRCL=30.1.Received Pip/Tazo 2.25gm + Vancomycin 1 GM in ED 01/19.Will continue Vancomycin at 1 Gram Q24 hours.(pip/Tazo = 2.25 Grams IV [id number].Will continue to follow labs [facility] Jan 20, 2017 09:07
--- NOTE | 2017-01-20 09:10 | IPNPDOC ---
Subjective Date Seen The patient was seen on 01/20/17. Subjective Chief Complaint/HPI The patient is a 76-year-old male admitted with a reason for visit of HCAP. Events since last encounter PAtient states feeling better compared to yesterday. denies SOB, cough. + infiltrate vs mass on CT chest. CT chest 04/2016 w/o mass. Constitutional: Denies: Chills, Fever, Night Sweats ENT: Denies: Head Aches, Ear Pain, Dysphagia Skin: Denies: Rash, Lesions, Breakdown Pulmonary: Reports: Other Symptoms (oxygen 2LNC), Denies: Dyspnea, Cough Cardiovascular: Denies: Chest Pain, Palpitations, Orthopnea, Paroxysmal Noc. Dyspnea, Lt Headedness Gastrointestinal: Denies: Nausea, Vomiting, Abdominal Pain, Diarrhea, Constipation Neurological: Denies: Weakness, Numbness, Change in speech, Confusion Objective Physical Examination General Exam: Positive: Alert, No Acute Distress Eye Exam: Positive: PERRLA, Conjunctiva & lids normal, EOMI, Negative: Sclera icteric Neck Exam: Positive: Supple, Negative: JVD, thyromegaly Chest Exam: Positive: Clear to auscultation, Normal air movement Heart Exam: Positive: Rate Normal, Regular Rhythm, Normal S1, Normal S2, Negative: Murmurs, Rubs Abdomen Exam: Positive: Normal bowel sounds, Soft, Negative: Tenderness, Hepatospenomegaly Extremity Exam: Positive: Normal pulses, Negative: Clubbing, Cyanosis, Edema Psych Exam: Positive: Mental status NL, Mood NL, Oriented x 3 Assessment /Plan Problems (1) End stage renal disease on dialysis Status: Chronic Problem Text: Dr. Peng, nephrology aware of admission.He will evaluate patient and manage HD needs. (2) HCAP (healthcare-associated pneumonia) Problem Text: WBC improved to 16,000. CT chest with ,malignancy vs consolidated pneumonia. Symptoms consistent with pneumonia. Negative chest CT . will need f/u to resolution (3) COPD (chronic obstructive pulmonary disease) Status: Chronic Response to Treatment: Stable Problem Specific Plan: Monitor Clinically Problem Text: Continue nebs and oxygen from [facility]. (4) Diastolic CHF Permanent Comment: 1. Technically limited study due to poor acoustic window. Patient had a full echocardiogram on 04/23/2016. 2. Normal left ventricular size with mildly increased left ventricular wall thickness. Left ventricular systolic function appeared to be at the lower limit of normal, 50-55%. There seems to be mild global hypokinesis. 3. Normal left atrium. The right atrium and the right ventricle appeared to be normal. 4. The atrial septum appeared to be normal without evidence of defect or shunt. 5. Normal aortic root. 6. Small pericardial effusion noted, no evidence of cardiac tamponade. 7. Mildly calcified aortic valve, leaflet excursion appeared to be normal. Mildly calcified mitral annulus with normal anterior mitral valve leaflet motion. Normal tricuspid valve. The pulmonic valve and proximal pulmonary artery branches were not well visualized. 8. The inferior vena cava appeared to be normal in size Last Edited By: Cecilia Powell NP on Jan 20, 2017 09:08 Status: Chronic Response to Treatment: Stable Problem Specific Plan: Monitor Clinically Problem Text: appears well compensated . (5) ANKITA (obstructive sleep apnea) Status: Chronic Response to Treatment: Stable Problem Specific Plan: Monitor Clinically (6) Gait instability Status: Chronic Response to Treatment: Stable Problem Specific Plan: Monitor Clinically (7) CAD in [place] artery Status: Chronic Response to Treatment: Stable Problem Specific Plan: Monitor Clinically (8) Diabetes Status: Chronic Problem Text: RISS per protocol (9) Hypertension Status: Chronic Response to Treatment: Stable Problem Specific Plan: Monitor Clinically Plan/VTE VTE Prophylaxis Ordered?: Yes (keriqujana) Plan Family Medicine Attending Note: I saw and examined Mr. Snyder this afternoon; he states he feels better today. WBCs are improved. Continue antibiotics as above. I agree with Cecilia Powell's note as documented. (KES) VS, I&O, 24H, Fishbone Vital Signs/I&O Vital Signs Date Time Temp Pulse Resp B/P (MAP) Pulse Ox O2 Delivery O2 Flow Rate FiO2 01/20/17 06:00 97.8 70 20 113/55 (74) 99 Nasal Cannula 2.0 Laboratory Data 24H LABS Laboratory Tests 2 01/19/17 19:59: Immature Granulocyte % (Auto) 0.7H, White Blood Count 23.8H, Red Blood Count 3.50L, Hemoglobin 10.9L, Hematocrit 34.6L, Mean Corpuscular Volume 98.9H, Mean Corpuscular Hemoglobin 31.1, Mean Corpuscular Hemoglobin Concent 31.5L, Red Cell Distribution Width 18.1H, Platelet Count 206, Neutrophils (%) (Auto) 88.2H , Lymphocytes (%) (Auto) 5.4L, Monocytes (%) (Auto) 5.2H, Eosinophils (%) (Auto ) 0.2, Basophils (%) (Auto) 0.3, Neutrophils # (Auto) 21.0H, Lymphocytes # (Auto ) 1.3L, Monocytes # (Auto) 1.3H, Eosinophils # (Auto) 0.0, Basophils # (Auto) 0.1, Immature Granulocyte # (Auto) 0.2H, Nucleated Red Blood Cells % (auto) 0.0 , Anion Gap 9, Glomerular Filtration Rate 28.6L, Lactic Acid Level 1.5, Calcium Level 8.7L, Aspartate Amino Transf (AST/SGOT) 11, Alanine Aminotransferase (ALT/ SGPT) 21, Alkaline Phosphatase 75, Total Bilirubin 0.6, Direct Bilirubin 0.2, Total Protein 6.9, Albumin 3.2, Albumin/Globulin Ratio 0.86L 01/19/17 20:20: Urine Appearance CLOUDYH, Urine Color YELLOW, Urine pH 5.0, Urine Specific [place] 1.016, Urine Protein 2+H, Urine Glucose (UA) NEGATIVE, Urine Ketones NEGATIVE, Urine Urobilinogen 0.2, Urine Bilirubin NEGATIVE, Urine Leukocyte Esterase 3+H, Urine Blood 2+H, Urine Nitrite NEGATIVE, Urine WBC (Auto) 48H, Urine RBC (Auto) 6H, Urine Hyaline Casts (Auto) 0, Urine Bacteria (Auto) 1+H, Urine Squamous Epithelial Cells 0, Urine Sperm (Auto) 01/19/17 23:57: Bedside Glucose (Misc Panel) 131H 01/20/17 05:38: Nucleated Red Blood Cells % (auto) 0.0, Anion Gap 9, Glomerular Filtration Rate 22.8L, Calcium Level 8.9, Blood Urea Nitrogen 31#H, Creatinine 2.87H, Sodium Level 135L, Potassium Level 3.3L, Chloride Level 96L, Carbon Dioxide Level 30 CBC/BMP Laboratory Tests 01/19/17 19:59 Red Blood Count 3.50 L, Mean Corpuscular Volume 98.9 H, Mean Corpuscular Hemoglobin 31.1, Mean Corpuscular Hemoglobin Concent 31.5 L, Red Cell Distribution Width 18.1 H, Neutrophils (%) (Auto) 88.2 H, Lymphocytes (%) (Auto ) 5.4 L, Monocytes (%) (Auto) 5.2 H, Eosinophils (%) (Auto) 0.2, Basophils (%) ( Auto) 0.3, Neutrophils # (Auto) 21.0 H, Lymphocytes # (Auto) 1.3 L, Monocytes # (Auto) 1.3 H, Eosinophils # (Auto) 0.0, Basophils # (Auto) 0.1 01/20/17 05:38 Red Blood Count 3.27 L, Mean Corpuscular Volume 98.5 H, Mean Corpuscular Hemoglobin 30.6, Mean Corpuscular Hemoglobin Concent 31.1 L, Red Cell Distribution Width 17.9 H, Calcium Level 8.9 Microbiology Microbiology 01/19/17 Blood Culture, Received Pending 01/19/17 Blood Culture, Received Pending 01/19/17 Respiratory Virus Panel (PCR) (MICKEY) - Final, Complete 01/19/17 Urine Culture, Received Pending Cecilia Powell Jan 20, 2017 09:10 MANUEL KHAN MD Jan 20, 2017 12:54
[2017-01-20] MEDS: MIRALAX *UNIT DOSE* 17GM PACKET PO SCH (09:11)
[2017-01-20] MEDS: MULTIVITAMINS/MINERALS THERAP 1 TAB PO SCH (09:11)
[2017-01-20] MEDS: ESCITALOPRAM OXALATE 10 MG TAB (LEXAPRO) PO SCH (09:12)
[2017-01-20] MEDS: (RENVELA) SEVELAMER **CARBONate** 800 MG TAB PO SCH ×3 (09:13→16:50)
[2017-01-20] MEDS: VITAMIN D 1,000 INTERNATIONAL UNITS TABLET PO SCH (09:13)
[2017-01-20] MEDS: LORazepam 0.5 MG TAB PO SCH (09:14)
[2017-01-20] MEDS: ASPIRIN 81 MG ENTERIC TAB PO SCH (09:14)
[2017-01-20] MEDS: PANTOPRAZOLE 40MG TAB (PROTONIX) PO SCH (09:14)
[2017-01-20] MEDS: EMLA CREAM 5GM (LIDOCAINE/PRILOCAINE) TOP SCH (12:00)
[2017-01-20] MEDS: LORazepam 2 MG TAB PO SCH (12:19)
--- NOTE | 2017-01-20 12:21 | CR ---
DATE OF CONSULTATION: 01/20/2017 REQUESTING PHYSICIAN: Cecilia Powell NP CONSULTING PHYSICIAN: Edith Peng MD REASON FOR CONSULTATION: Management of end stage renal disease and hemodialysis. CHIEF COMPLAINT: Patient was sent from the dialysis center yesterday because of low blood pressure, not feeling well, and low grade fever spikes. HISTORY OF PRESENT ILLNESS: Davin Snyder is a 76-year-old male with a past medical history of end stage renal disease on hemodialysis every Friday, Friday, and Friday, chronic obstructive pulmonary disease (COPD), chronic diastolic congestive heart failure (CHF), and multiple other comorbidities as mentioned below. Patient presented to the dialysis center yesterday from the residential. He was found to have a low grade temperature spike of around 100.3 degrees Fahrenheit. He was having cough, some shortness of breath, was feeling weak and tired. He was started on dialysis, however dialysis had to be stopped after 3 hours because of low blood pressures. Patient was sent to the emergency room for further evaluation. Further imaging found that the patient had left upper lobe pneumonia. He has been admitted over here for healthcare associated pneumonia. Nephrology service was called to further help in the management of end stage renal disease. I saw the patient today morning. He that after getting the antibiotics he is feeling slightly better as compared with yesterday. PAST MEDICAL HISTORY: End stage renal disease on hemodialysis every Friday, Friday, and Friday. History of chronic obstructive pulmonary disease (COPD). Hypertension. Coronary artery disease and history of myocardial infarction in the past. History of diastolic congestive heart failure (CHF). Gout secondary to end stage renal disease. Insulin dependent diabetes mellitus. Benign prostatic hypertrophy (BPH). Obstructive sleep apnea (ANKITA). History of pulmonary embolism in the past. PAST SURGICAL HISTORY: Status post appendectomy. Status post partial colectomy. Status post cholecystectomy. History of bilateral knee replacements. ALLERGIES: No known drug allergies. FAMILY HISTORY: No significant family history of end stage renal disease requiring hemodialysis. SOCIAL HISTORY: Patient is a residential resident at this time. He is a former smoker. He does not drink and there is no history of illicit drug abuse. REVIEW OF SYSTEMS: CONSTITUTIONAL: Patient reports feeling weak and tired. He denies any chills or rigors. EYES: He denies blurry vision or double vision. ENT: He denies any dysphagia, odynophagia, ear discharge. CARDIOVASCULAR: Patient denies any chest pain or palpitations. RESPIRATORY: Patient does report shortness of breath and mild amount of cough. GASTROINTESTINAL (GI): He reports decreased appetite, but he denies any constipation or diarrhea. GENITOURINARY (): Denies any dysuria or hematuria. MUSCULOSKELETAL: Patient reports muscle weakness. TIP MENDER: Patient denies any strokes or seizures. PSYCH: Patient denies any depression or anxiety at this time. SKIN: He denies any rashes or ulcers. HEMATOLOGY/ONCOLOGY: He denies any easy bruising or bleeding. He does report history of anemia secondary to end stage renal disease. ENDOCRINE: Patient is a known diabetic and he has a history of secondary hyperparathyroidism as well. All other review of systems is negative. PHYSICAL EXAMINATION: GENERAL: Patient is awake, alert and oriented times three. Laying in bed in no apparent distress. VITAL SIGNS: Temperature is 97.8 degrees Fahrenheit, blood pressure is 113/55, pulse 70, respiratory rate of 20, saturating 99% on nasal cannula at 2 liters. INTAKE AND OUTPUT: Urine output is not recorded overnight. Weight on the bed scale was 94.2 kg. HEAD/NECK: Extraocular muscles intact. Pupils equally, round and reactive to light. Mucous membranes are moist. Neck is supple. There is no jugular venous distention (JVD). CARDIOVASCULAR: S1, S2, irregularly heart rate. No murmur, rub or gallop. RESPIRATORY: Decreased breath sounds and a mild amount of crepitations at the left base. Right lung is clear to auscultation at this time. ABDOMEN: Soft, obese. Positive bowel sounds. No organomegaly at this time. MUSCULOSKELETAL: No clubbing or cyanosis. No edema of the extremities. Pulses are 2+. TIP MENDER: No focal neurological deficit. Power is 5/5 in all extremities. PSYCH: Normal mood and affect. SKIN: No rashes or ulcers. LAB REVIEW: CBC showed a WBC of 16.9, it was 23.8 yesterday, hemoglobin is 10, platelets of 190. Urinalysis showed 2+ protein, 2+ blood, 3+ leukocyte esterase. BMP showed sodium 136, potassium 3.3, chloride 96, bicarb is 30, BUN 31, creatinine is 2.8, calcium 8.9. Microbiology: Respiratory viral panel is negative. Blood cultures and urine cultures are pending. IMAGING: A CAT scan of the chest was done yesterday which showed an 18 mm consolidation in the subpleural left upper lobe with noncalcified nodules. Differential diagnosis included acute pneumonia versus malignancy. CURRENT INPATIENT MEDICATIONS: The patient's medications were all reviewed by me. He is currently on Zosyn 2.5 grams IV every 8 hourly, vancomycin one dose was given and has been switched to 1 gram IV with hemodialysis. He is on Eliquis 5 mg twice a day, aspirin 81 mg daily, clonidine 0.1 mg twice a day, Senokot 2 tablets twice a day, Lexapro 10 mg daily, ferrous sulfate 325 mg by mouth twice a day, Robitussin 10 mL every 4 hours as needed cough, hydralazine 25 mg by mouth twice a day, insulin Levemir 28 units subcu at bedtime, insulin lispro sliding scale, isosorbide 20 mg twice a day, labetalol 300 mg by mouth twice a day, Ativan 2 mg by mouth Friday, Friday, and Friday before dialysis and 0.5 mg by mouth daily, mirtazapine 15 mg at bedtime, multivitamin, Protonix 40 mg daily, MiraLAX one packet twice daily, Renvela 1600 mg by mouth three times a day with meals, Zocor 20 mg by mouth at bedtime, terazosin 5 mg at bedtime, and vitamin D 1000 units daily. ASSESSMENT: 76-year-old male with past medical history of end stage renal disease on hemodialysis, chronic diastolic congestive heart failure (CHF), COPD admitted this time because of healthcare associated pneumonia and possible UTI as well. PLAN: 1. End stage renal disease on hemodialysis. Patient was dialyzed yesterday although dialysis was cut short, but he got 3 hours of dialysis. No urgent need of hemodialysis again today. Patient will be evaluated tomorrow morning for his dialysis. 2. Healthcare associated pneumonia. Patient has leukocytosis. He had low grade temperature at dialysis center. CAT scan shows left upper lobe infiltrate. He is currently on vancomycin and Zosyn. Continue current dose. Cultures are negative so far. White cell count is improving. 3. Hypertension. Blood pressure is acceptable at this time. Continue current dose of clonidine 0.1 mg by mouth twice a day, hydralazine 25 mg by mouth twice a day, isosorbide 20 mg by mouth three times a day, labetalol 300 mg by mouth twice a day, terazosin 5 mg at bedtime. 4. Anemia and end stage renal disease. Hemoglobin is 10, which is optimal at this time. Patient will be given Aranesp 100 mcg during hemodialysis tomorrow. 5. End stage renal disease, mineral bone disease. Continue current dose of Renvela 1600 mg by mouth three times a day with meals. Continue the iron protocol as per outpatient. I am going to stop the iron pills at this time because the patient gets constipated. 6. Hypokalemia. Patient will be given one dose of potassium chloride 20 mEq by mouth. Thank you for involving us in the care of this patient. We shall be happy to follow the patient along with you tomorrow morning.
[2017-01-20 14:00] VITALS: BP_SYST 129; BP_SYST 131; BP_DIAS 60; BP_DIAS 88
[2017-01-20] MEDS: IPRATROPIUM 0.5MG/ALBUTEROL 2.5MG INH SOL UD 3ML (DUONEB)(J7620) NEB PRN ×2 (14:10→20:27)
[2017-01-20] MEDS ORDERED: VANCOMYCIN HCL 1,000 MG, VIAL MATE ADAPTER 1 EACH in D5W 250 ML IV SCH (18:00)
[2017-01-20] MEDS ORDERED: LEVEMIR (INSULIN DETEMIR) 1 UNITS/0.01ML SC ONE (21:30)
[2017-01-20 22:00] VITALS: BP 125/56
[2017-01-21] MEDS: IPRATROPIUM 0.5MG/ALBUTEROL 2.5MG INH SOL UD 3ML (DUONEB)(J7620) NEB PRN ×4 (00:13→23:01)
[2017-01-21] MEDS: PIPERACILLIN/TAZOBACTAM SOD 2.25 GM in APPROPRIATE DILUENT 1 EA IV SCH ×3 (04:21→20:22)
[2017-01-21 06:00] VITALS: BP 118/58
[2017-01-21 06:07] LABS: MEAN CORPUSCULAR HEMOGLOBIN 31.2 pg (27.0-33.0); MEAN CORPUSCULAR HGB CONC 31.8 g/dl (32.0-36.5); PLATELET COUNT, AUTOMATED 186 10^3/uL (150-450); RED CELL DISTRIBUTION WIDTH 17.4 % (11.5-14.5); WHITE BLOOD COUNT 13.3 10^3/uL (4.0-10.0)
[2017-01-21 06:24] LABS: CALCIUM LEVEL 8.7 MG/DL (8.8-10.2); CREATININE FOR GFR 3.95 MG/DL (0.70-1.30); GLOMERULAR FILTRATION RATE 15.8 (>42)
[2017-01-21] MEDS: HumaLOG INSULIN (NovoLOG) PER UNIT SC SCH ×4 (07:30→20:21)
[2017-01-21] MEDS: LABETALOL 100 MG TAB PO SCH ×2 (08:04→20:21)
[2017-01-21] MEDS: MIRALAX *UNIT DOSE* 17GM PACKET PO SCH (08:10)
[2017-01-21] MEDS: ESCITALOPRAM OXALATE 10 MG TAB (LEXAPRO) PO SCH (08:13)
[2017-01-21] MEDS: ASPIRIN 81 MG ENTERIC TAB PO SCH (08:13)
[2017-01-21] MEDS: APIXABAN 5 MG TAB (ELIQUIS) PO SCH ×2 (08:13→20:20)
[2017-01-21] MEDS: (RENVELA) SEVELAMER **CARBONate** 800 MG TAB PO SCH ×3 (08:13→16:37)
[2017-01-21] MEDS: SENOKOT S TAB PO SCH ×2 (08:13→20:21)
[2017-01-21] MEDS: PANTOPRAZOLE 40MG TAB (PROTONIX) PO SCH (08:13)
[2017-01-21] MEDS: LORazepam 0.5 MG TAB PO SCH (08:14)
[2017-01-21] MEDS: ISOSORBIDE DIN. (ISORDIL) 20 MG TAB PO SCH ×3 (08:14→20:20)
[2017-01-21] MEDS: cloNIDine 0.1 MG TAB PO SCH ×2 (08:14→20:20)
[2017-01-21] MEDS: MULTIVITAMINS/MINERALS THERAP 1 TAB PO SCH (08:15)
[2017-01-21] MEDS: VITAMIN D 1,000 INTERNATIONAL UNITS TABLET PO SCH (08:15)
[2017-01-21] MEDS: **hydrALAZINE HCL** 25 MG TAB PO SCH ×2 (08:15→20:20)
[2017-01-21] MEDS ORDERED: HEPARIN 1,000 UNITS/ML 10ML VIAL (FOR RADIOLOGY& DIALYSIS ONLY) IV ONE (12:45)
[2017-01-21] MEDS ORDERED: HEPARIN 1,000 UNITS/ML 10ML VIAL (FOR RADIOLOGY& DIALYSIS ONLY) XX ONE (12:45)
--- NOTE | 2017-01-21 13:57 | IPN ---
DATE: 01/21/2017 SUBJECTIVE: Patient was seen and examined at the bedside today morning during hemodialysis procedure. Patient was tolerating the hemodialysis procedure well. He reports that he is feeling much better. He denies any fevers and chills. His shortness of breath is also better at this time. REVIEW OF SYSTEMS: Patient denies any fevers, chills, or rigors. He denies any headaches or chest pain. He reports his shortness of breath is getting better. He denies any pain in the abdomen, constipation or diarrhea. The rest of review of systems is negative. OBJECTIVE: VITAL SIGNS: Temperature is 98.1 degrees Fahrenheit, blood pressure is 118/58, pulse 73, respiratory rate of 17, saturating 95% on nasal cannula at 2 liters. INTAKE AND OUTPUT: Urine output is not recorded. Weight on the bed scale is 99.3 kg. PHYSICAL EXAMINATION: GENERAL: Patient is awake, alert and oriented times three. Laying in bed. No apparent distress. HEAD/NECK: Extraocular muscles intact. Pupils equally round and reactive to light. Mucous membranes are moist. Neck is supple. There is no jugular venous distention (JVD). CARDIOVASCULAR: S1, S2, irregularly heart rate. No murmur, rub or gallop. RESPIRATORY: Widely decreased breath sounds at the bases. Otherwise, no rales or rhonchi. ABDOMEN: Soft, obese. Positive bowel sounds. No organomegaly. MUSCULOSKELETAL: No clubbing or cyanosis. Pulses are 2+. No edema of the extremities. 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 Power is 5/5 in all extremities. LAB REVIEW: CBC showed a WBC of 13.3, which is significantly better than yesterday. Hemoglobin is 9.3. Platelets are 186. BMP showed sodium 133, potassium 4, chloride 94, bicarb 28, BUN 49, creatinine 3.9, calcium 8.7. Microbiology: Urine culture came back positive for Enterococcus Faecalis, which is sensitive to penicillins, vancomycin, and fluoroquinolones. CURRENT INPATIENT MEDICATIONS: The patient's medications were all reviewed by me. His vancomycin dose at this time has been changed to 1 gram at hemodialysis. He continues to be on Zosyn 2.25 grams IV every 8 hours. There is no other change in the medications today as compared with yesterday. ASSESSMENT: 76-year-old male with past medical history of end stage renal disease on hemodialysis, chronic diastolic congestive heart failure (CHF), chronic obstructive pulmonary disease (COPD) admitted at this time because of healthcare associated pneumonia, and now the cultures also came back positive for Enterococcus Faecalis urinary tract infection. PLAN: 1. End stage renal disease on hemodialysis. Patient is being dialyzed at this time according to his schedule. Ultrafiltration goal will be around 2 liters as tolerated by his blood pressure. 2. Healthcare associated pneumonia. Patient is currently on vancomycin and Zosyn. White cell count is improving. Shortness of breath is also getting better. 3. Enterococcus Faecalis UTI. Sensitivity report shows that it is sensitive to vancomycin and penicillin. Patient is already on IV vancomycin and Zosyn, so it should cover the UTI as well. 4. Anemia and end stage renal disease. Patient will get Aranesp with hemodialysis today. 5. Hyponatremia. It is secondary to hypervolemia. Hemodialysis and ultrafiltration will help improve hyponatremia.
[2017-01-21 14:00] VITALS: BP 142/63
[2017-01-21] MEDS ORDERED: VANCOMYCIN HCL 1,000 MG, VIAL MATE ADAPTER 1 EACH in D5W 250 ML IV SCH (16:00)
[2017-01-21] MEDS: CHECK TO SEE IF PATIENT IS RECEIVING DIALYSIS TODAY AND REFER TO THE VANCOMYCIN ORDER XX SCH (16:00)
--- NOTE | 2017-01-21 17:29 | IPNPDOC ---
Subjective Date Seen The patient was seen on 01/21/17. Subjective Chief Complaint/HPI The patient is a 76-year-old male admitted with a reason for visit of HCAP. Constitutional: Reports: Fever, Denies: Chills Eyes: Denies: Pain ENT: Denies: Head Aches Skin: Denies: Rash Pulmonary: Denies: Dyspnea, Cough Cardiovascular: Denies: Chest Pain Gastrointestinal: Denies: Nausea, Vomiting Genitourinary: Denies: Dysuria Objective Physical Examination General Exam: Positive: Alert, No Acute Distress Eye Exam: Positive: PERRLA, Conjunctiva & lids normal, EOMI, Negative: Sclera icteric Neck Exam: Positive: Supple, Negative: JVD, thyromegaly Chest Exam: Positive: Clear to auscultation, Normal air movement Heart Exam: Positive: Rate Normal, Regular Rhythm, Normal S1, Normal S2, Negative: Murmurs, Rubs Abdomen Exam: Positive: Normal bowel sounds, Soft, Negative: Tenderness, Hepatospenomegaly Extremity Exam: Positive: Normal pulses, Negative: Clubbing, Cyanosis, Edema Psych Exam: Positive: Mental status NL, Mood NL, Oriented x 3 Assessment /Plan Problems (1) Diabetes Status: Chronic Problem Text: T2DM ID continue SSHI HD glargine 28 QHS 01/20 determir 14 qhs c 01/21 AM HBG 67; therefore, basal held (2) UTI (urinary tract infection) Status: Acute Response to Treatment: Stable Problem Text: rx as per HCAP 01/19 UCX E. faecalis >100K (3) End stage renal disease on dialysis Status: Chronic Problem Text: 01/[address] Peng, nephrology aware of admission. (4) HCAP (healthcare-associated pneumonia) Problem Text: D2 vanco/Zosyn 01/21 improved WBC 13K (01/19 24), Tm down to 100.4 01/21 1400, decreased O2 req 01/19 BG NG x 2 01/20 CT chest: 1. 18 mm mass / consolidation in the subpleural left upper lobe with adjacent noncalcified nodules measuring up to 11 mm. Differential diagnosis includes early acute pneumonia as well as malignancy. 3-month follow-up is recommended. 2. Chronic stable changes as described above. Previously identified pericardial effusion, small pleural effusions and bibasilar atelectasis have resolved. (new c/w 04/2016 CT chest) (5) COPD (chronic obstructive pulmonary disease) Status: Chronic Response to Treatment: Stable Problem Specific Plan: Monitor Clinically Problem Text: Continue nebs and oxygen from [facility]. (6) Diastolic CHF Permanent Comment: 1. Technically limited study due to poor acoustic window. Patient had a full echocardiogram on 04/23/2016. 2. Normal left ventricular size with mildly increased left ventricular wall thickness. Left ventricular systolic function appeared to be at the lower limit of normal, 50-55%. There seems to be mild global hypokinesis. 3. Normal left atrium. The right atrium and the right ventricle appeared to be normal. 4. The atrial septum appeared to be normal without evidence of defect or shunt. 5. Normal aortic root. 6. Small pericardial effusion noted, no evidence of cardiac tamponade. 7. Mildly calcified aortic valve, leaflet excursion appeared to be normal. Mildly calcified mitral annulus with normal anterior mitral valve leaflet motion. Normal tricuspid valve. The pulmonic valve and proximal pulmonary artery branches were not well visualized. 8. The inferior vena cava appeared to be normal in size Last Edited By: Cecilia Powell NP on Jan 20, 2017 09:08 Status: Chronic Response to Treatment: Stable Problem Specific Plan: Monitor Clinically Problem Text: appears well compensated . (7) ANKITA (obstructive sleep apnea) Status: Chronic Response to Treatment: Stable Problem Specific Plan: Monitor Clinically (8) Gait instability Status: Chronic Response to Treatment: Stable Problem Specific Plan: Monitor Clinically (9) CAD in [place] artery Status: Chronic Response to Treatment: Stable Problem Specific Plan: Consult Specialist, Monitor Clinically Problem Text: No active angina (10) Hypertension Status: Chronic Response to Treatment: Stable Problem Specific Plan: Monitor Clinically (11) Anemia Status: Chronic Response to Treatment: Stable Problem Text: 2 ACD on Iv Fe/EPA baseline hgb low 10s 01/21 9.3 Plan/VTE VTE Prophylaxis Ordered?: Yes (eliquis) VS, I&O, 24H, Fishbone Vital Signs/I&O Vital Signs Date Time Temp Pulse Resp B/P (MAP) Pulse Ox O2 Delivery O2 Flow Rate FiO2 01/21/17 16:28 99.2 01/21/17 16:02 Nasal Cannula 2.0 01/21/17 15:52 120/48 01/21/17 14:00 89 20 100 I&O- Last 24 Hours up to 6 AM 01/22/17 06:00 Intake Total 780 ml Output Total 2000 ml Balance -1220 ml Laboratory Data 24H LABS Laboratory Tests 2 01/20/17 19:51: Bedside Glucose (Misc Panel) 104 01/20/17 23:25: Bedside Glucose (Misc Panel) 115H 01/21/17 05:25: Nucleated Red Blood Cells % (auto) 0.0, Anion Gap 11, Glomerular Filtration Rate 15.8L, Blood Urea Nitrogen 49#H, Creatinine 3.95H, Sodium Level 133L, Potassium Level 4.0#, Chloride Level 94L, Carbon Dioxide Level 28, Calcium Level 8.7L 01/21/17 16:41: Bedside Glucose (Misc Panel) 126H CBC/BMP Laboratory Tests 01/21/17 05:25 Red Blood Count 2.98 L, Mean Corpuscular Volume 98.0 H, Mean Corpuscular Hemoglobin 31.2, Mean Corpuscular Hemoglobin Concent 31.8 L, Red Cell Distribution Width 17.4 H, Calcium Level 8.7 L Microbiology Microbiology 01/19/17 Blood Culture - Preliminary, Resulted No growth after 24 hours . All specim... 01/19/17 Blood Culture - Preliminary, Resulted No growth after 24 hours . All specim... 01/19/17 Respiratory Virus Panel (PCR) ([facility]) - Final, Complete 01/19/17 Urine Culture - Final, Complete Enterococcus Faecalis Rigo Kaba M.D. Jan 21, 2017 17:29
[2017-01-21] MEDS: TERAZOSIN 5 MG CAP PO SCH (20:20)
[2017-01-21] MEDS: SIMVASTATIN 20 MG TAB PO SCH (20:20)
[2017-01-21] MEDS: MIRTAZAPINE 15 MG TAB PO SCH (20:20)
[2017-01-21] MEDS: LEVEMIR (INSULIN DETEMIR) 1 UNITS/0.01ML SC SCH (21:00)
[2017-01-21] MEDS ORDERED: LEVEMIR (INSULIN DETEMIR) 1 UNITS/0.01ML SC ONE (21:30)
[2017-01-21 22:00] VITALS: BP 120/62
[2017-01-22] MEDS: PIPERACILLIN/TAZOBACTAM SOD 2.25 GM in APPROPRIATE DILUENT 1 EA IV SCH (04:30)
[2017-01-22 06:00] VITALS: BP 104/52
[2017-01-22 06:24] LABS: MEAN CORPUSCULAR HEMOGLOBIN 30.8 pg (27.0-33.0); MEAN CORPUSCULAR HGB CONC 31.7 g/dl (32.0-36.5); PLATELET COUNT, AUTOMATED 192 10^3/uL (150-450); RED CELL DISTRIBUTION WIDTH 17.6 % (11.5-14.5); WHITE BLOOD COUNT 13.1 10^3/uL (4.0-10.0)
[2017-01-22 06:30] LABS: CALCIUM LEVEL 9.4 MG/DL (8.8-10.2); CREATININE FOR GFR 2.66 MG/DL (0.70-1.30); GLOMERULAR FILTRATION RATE 24.9 (>42); POTASSIUM SERUM 4.2 MEQ/L (3.5-5.1)
[2017-01-22] MEDS: HumaLOG INSULIN (NovoLOG) PER UNIT SC SCH ×4 (07:44→20:47)
--- NOTE | 2017-01-22 07:48 | IPNPDOC ---
Subjective Date Seen The patient was seen on 01/22/17. Subjective Chief Complaint/HPI The patient is a 76-year-old male admitted with a reason for visit of HCAP. Events since last encounter feels well. No hypoxia. on 2LNC chronically. c/o nasal dryness. Has saline nasal spray prn. Constitutional: Denies: Chills, Fever, Night Sweats ENT: Denies: Head Aches, Ear Pain, Dysphagia Pulmonary: Reports: Cough, Denies: Dyspnea Cardiovascular: Denies: Chest Pain, Palpitations, Orthopnea, Paroxysmal Noc. Dyspnea, Lt Headedness Gastrointestinal: Denies: Nausea, Vomiting, Abdominal Pain, Diarrhea, Constipation Genitourinary: Denies: Dysuria, Frequency, Incontinence, Retention Psych: Reports: Mood Normal, Denies: Depression, Memory Issues Objective Physical Examination General Exam: Positive: Alert, No Acute Distress Eye Exam: Positive: PERRLA, Conjunctiva & lids normal, EOMI, Negative: Sclera icteric Neck Exam: Positive: Supple, Negative: JVD, thyromegaly Chest Exam: Positive: Clear to auscultation, Normal air movement, Rales ( bibasilar) Heart Exam: Positive: Rate Normal, Regular Rhythm, Normal S1, Normal S2, Negative: Murmurs, Rubs Abdomen Exam: Positive: Normal bowel sounds, Soft, Negative: Tenderness, Hepatospenomegaly Extremity Exam: Positive: Normal pulses, Negative: Clubbing, Cyanosis, Edema Psych Exam: Positive: Mental status NL, Mood NL, Oriented x 3 Assessment /Plan Problems (1) Diabetes Status: Chronic Problem Text: 01/22/2017: am hypoglycemia despite decreased dosing of Basal insulin. Bedtime dosing held. T2DM ID continue SSHI HD glargine 28 QHS 01/20 determir 14 qhs c 01/21 AM HBG 67; therefore, basal held (2) UTI (urinary tract infection) Status: Acute Response to Treatment: Stable Problem Text: 01/22/2017: E. Faecalis. Change to po Levaquin 250 mg po daily. rx as per HCAP 01/19 UCX E. faecalis >100K (3) End stage renal disease on dialysis Status: Chronic Problem Text: 01/[address] Peng, nephrology aware of admission. (4) HCAP (healthcare-associated pneumonia) Problem Text: Received 3 days of vanco/Zosyn 01/22/2017: WBC close to baseline. On home dose oxygen. Nasal spray prn dryness. Change to Levaquin po. 01/21 improved WBC 13K (01/19 24), Tm down to 100.4 01/21 1400, decreased O2 req 01/19 BG NG x 2 01/20 CT chest: 1. 18 mm mass / consolidation in the subpleural left upper lobe with adjacent noncalcified nodules measuring up to 11 mm. Differential diagnosis includes early acute pneumonia as well as malignancy. 3-month follow-up is recommended. 2. Chronic stable changes as described above. Previously identified pericardial effusion, small pleural effusions and bibasilar atelectasis have resolved. (new c/w 04/2016 CT chest) (5) COPD (chronic obstructive pulmonary disease) Status: Chronic Response to Treatment: Stable Problem Specific Plan: Monitor Clinically Problem Text: Continue nebs and oxygen from [facility]. (6) Diastolic CHF Permanent Comment: 1. Technically limited study due to poor acoustic window. Patient had a full echocardiogram on 04/23/2016. 2. Normal left ventricular size with mildly increased left ventricular wall thickness. Left ventricular systolic function appeared to be at the lower limit of normal, 50-55%. There seems to be mild global hypokinesis. 3. Normal left atrium. The right atrium and the right ventricle appeared to be normal. 4. The atrial septum appeared to be normal without evidence of defect or shunt. 5. Normal aortic root. 6. Small pericardial effusion noted, no evidence of cardiac tamponade. 7. Mildly calcified aortic valve, leaflet excursion appeared to be normal. Mildly calcified mitral annulus with normal anterior mitral valve leaflet motion. Normal tricuspid valve. The pulmonic valve and proximal pulmonary artery branches were not well visualized. 8. The inferior vena cava appeared to be normal in size Last Edited By: Cecilia Powell NP on Jan 20, 2017 09:08 Status: Chronic Response to Treatment: Stable Problem Specific Plan: Monitor Clinically Problem Text: 01/22/2017: CXR today. bibasilar crackles. appears well compensated . (7) ANKITA (obstructive sleep apnea) Status: Chronic Response to Treatment: Stable Problem Specific Plan: Monitor Clinically (8) Gait instability Status: Chronic Response to Treatment: Stable Problem Specific Plan: Monitor Clinically (9) CAD in [place] artery Status: Chronic Response to Treatment: Stable Problem Specific Plan: Consult Specialist, Monitor Clinically Problem Text: No active angina (10) Hypertension Status: Chronic Response to Treatment: Stable Problem Specific Plan: Monitor Clinically (11) Anemia Status: Chronic Response to Treatment: Stable Problem Text: 2 ACD on Iv Fe/EPA baseline hgb low 10s 01/21 9.3 Plan/VTE VTE Prophylaxis Ordered?: Yes (eliquis) Plan Family Medicine Attending Note: I saw and examined Mr. Snyder this morning; I discussed his care with MARIO Corbin and I agree with her note as documented above. (KES) VS, I&O, 24H, Fishbone Vital Signs/I&O Vital Signs Date Time Temp Pulse Resp B/P (MAP) Pulse Ox O2 Delivery O2 Flow Rate FiO2 01/22/17 06:00 98.6 70 18 104/52 (69) 96 Nasal Cannula 2.0 Laboratory Data 24H LABS Laboratory Tests 2 01/21/17 16:41: Bedside Glucose (Misc Panel) 126H 01/21/17 19:51: Bedside Glucose (Misc Panel) 105 01/22/17 05:29: Nucleated Red Blood Cells % (auto) 0.0, Anion Gap 9, Glomerular Filtration Rate 24.9L, Blood Urea Nitrogen 27H, Creatinine 2.66H, Sodium Level 135L, Potassium Level 4.2, Chloride Level 98, Carbon Dioxide Level 28, Calcium Level 9.4 CBC/BMP Laboratory Tests 01/22/17 05:29 Red Blood Count 3.02 L, Mean Corpuscular Volume 97.0 H, Mean Corpuscular Hemoglobin 30.8, Mean Corpuscular Hemoglobin Concent 31.7 L, Red Cell Distribution Width 17.6 H, Calcium Level 9.4 Microbiology Microbiology 01/19/17 Blood Culture - Preliminary, Resulted No Growth after 48 hours. All Specime... 01/19/17 Blood Culture - Preliminary, Resulted No Growth after 48 hours. All Specime... 01/19/17 Respiratory Virus Panel (PCR) ([facility]) - Final, Complete 01/19/17 Urine Culture - Final, Complete Enterococcus Faecalis Cecilia Powell Jan 22, 2017 07:48 MANUEL KHAN MD Jan 22, 2017 10:22
[2017-01-22] MEDS: (RENVELA) SEVELAMER **CARBONate** 800 MG TAB PO SCH ×3 (07:59→17:35)
[2017-01-22] MEDS: ASPIRIN 81 MG ENTERIC TAB PO SCH (07:59)
[2017-01-22] MEDS: SENOKOT S TAB PO SCH ×2 (07:59→21:39)
[2017-01-22] MEDS: LORazepam 0.5 MG TAB PO SCH (07:59)
[2017-01-22] MEDS: ISOSORBIDE DIN. (ISORDIL) 20 MG TAB PO SCH ×3 (08:00→21:39)
[2017-01-22] MEDS: VITAMIN D 1,000 INTERNATIONAL UNITS TABLET PO SCH (08:00)
[2017-01-22] MEDS: cloNIDine 0.1 MG TAB PO SCH ×2 (08:00→21:39)
[2017-01-22] MEDS: PANTOPRAZOLE 40MG TAB (PROTONIX) PO SCH (08:01)
[2017-01-22] MEDS: ESCITALOPRAM OXALATE 10 MG TAB (LEXAPRO) PO SCH (08:01)
[2017-01-22] MEDS: MULTIVITAMINS/MINERALS THERAP 1 TAB PO SCH (08:01)
[2017-01-22] MEDS: LevoFLOXacin 250 MG TABLET PO SCH (08:01)
[2017-01-22] MEDS: APIXABAN 5 MG TAB (ELIQUIS) PO SCH ×2 (08:01→21:38)
[2017-01-22] MEDS: **hydrALAZINE HCL** 25 MG TAB PO SCH ×2 (08:01→21:38)
[2017-01-22] MEDS: MIRALAX *UNIT DOSE* 17GM PACKET PO SCH (08:01)
[2017-01-22] MEDS: LABETALOL 100 MG TAB PO SCH ×2 (08:09→21:38)
--- NOTE | 2017-01-22 09:31 | REP ---
Clinical: Cough. Technique: AP and lateral views of the chest. Comparison: 01/19/2017. Findings: A double lumen dialysis catheter is identified with tip in the SVC. Diffuse chronic interstitial changes along with calcified granuloma and surgical changes to the left upper lung zone remain relatively stable. Superimposed interstitial edema with left lower lobe atelectasis and trace pleural reaction cannot be excluded. Skeletal structures are intact. Impression: Diffuse chronic interstitial changes. Superimposed interstitial edema with subtle left lower lobe atelectasis and pleural reaction cannot be excluded. Signed by Johnny Berrios MD 01/22/2017 09:23 A
[2017-01-22] MEDS: LORazepam 2 MG TAB PO SCH (12:20)
[2017-01-22] MEDS: EMLA CREAM 5GM (LIDOCAINE/PRILOCAINE) TOP SCH (12:20)
[2017-01-22 14:00] VITALS: BP 117/57
[2017-01-22] MEDS: CHECK TO SEE IF PATIENT IS RECEIVING DIALYSIS TODAY AND REFER TO THE VANCOMYCIN ORDER XX SCH (16:40)
[2017-01-22] MEDS: IPRATROPIUM 0.5MG/ALBUTEROL 2.5MG INH SOL UD 3ML (DUONEB)(J7620) NEB PRN (20:56)
[2017-01-22] MEDS: MIRTAZAPINE 15 MG TAB PO SCH (21:38)
[2017-01-22] MEDS: TERAZOSIN 5 MG CAP PO SCH (21:38)
[2017-01-22] MEDS: SIMVASTATIN 20 MG TAB PO SCH (21:38)
[2017-01-22 22:00] VITALS: BP 128/59
[2017-01-23] MEDS: LevoFLOXacin 250 MG TABLET PO SCH (05:50)
[2017-01-23 06:00] VITALS: BP 128/59
[2017-01-23 07:03] LABS: MEAN CORPUSCULAR HEMOGLOBIN 30.9 pg (27.0-33.0); MEAN CORPUSCULAR HGB CONC 31.1 g/dl (32.0-36.5); MEAN CORPUSCULAR VOLUME 99.3 fl (80.0-96.0); PLATELET COUNT, AUTOMATED 211 10^3/uL (150-450); RED CELL DISTRIBUTION WIDTH 17.4 % (11.5-14.5); WHITE BLOOD COUNT 10.4 10^3/uL (4.0-10.0)
[2017-01-23 07:11] LABS: CALCIUM LEVEL 9.5 MG/DL (8.8-10.2); CREATININE FOR GFR 3.91 MG/DL (0.70-1.30); GLOMERULAR FILTRATION RATE 15.9 (>42); POTASSIUM SERUM 4.6 MEQ/L (3.5-5.1)
--- NOTE | 2017-01-23 08:55 | IPN ---
DATE: 01/22/2017 SUBJECTIVE: Patient was seen and examined at the bedside today morning. He reports that his shortness of breath is better. Patient was dialyzed yesterday. He tolerated the hemodialysis procedure well. Patient is hemodynamically stable. Intravenous (IV) antibiotics have been stopped. Patient has been started on oral Levaquin for Enterococcus faecalis urinary tract infection (UTI) and possible pneumonia. REVIEW OF SYSTEMS: Patient denies any fever, chills, rigor, headache, chest pain, shortness of breath higher than his baseline. He denies any pain in abdomen, constipation or diarrhea. The rest of review of system is negative. OBJECTIVE: VITAL SIGNS: Temperature is 96.8 degrees Fahrenheit. Blood pressure is 117/57. Pulse is 59. Respiratory rate of 16. Saturating 95% on nasal cannula at 2 liters. INTAKE AND OUTPUT: Urine output is not recorded. Ultrafiltration with hemodialysis was 2 liters yesterday. Weight on the bed scale was 99.3 kg yesterday. PHYSICAL EXAMINATION: GENERAL: Patient is awake, alert, oriented times three, laying in bed, in no apparent distress. HEAD/NECK EXAM: Extraocular muscles intact. Pupils equally round and reactive to light. Mucous membranes are moist. Neck is supple. There is no jugular venous distention (JVD). CARDIOVASCULAR: S1, S2 with irregularly heart rate. No murmur, rub or gallop. RESPIRATORY: Decreased breath sounds at the bases. Otherwise, no rales or rhonchi. ABDOMEN: Is soft, obese. Positive bowel sounds. No organomegaly. MUSCULOSKELETAL: No clubbing or cyanosis. Pulses are 2+. No edema of the extremities. CENTRAL NERVOUS SYSTEM (PUDDLER PILE DRIVING): No focal neurological deficit. Power is 5/5 in all extremities. LABORATORY REVIEW: CBC showed a WBC 13.3, hemoglobin is 9.3, platelets are 192. BMP showed sodium 135, potassium 4.2, chloride 98, bicarbonate 28, BUN 27, creatinine is 2.6, calcium is 9.4. Microbiology: Blood cultures are negative so far. Urine culture showed Enterococcus faecalis, which is sensitive to Levaquin. CURRENT INPATIENT MEDICATIONS: Patient's medications were all reviewed by me. His IV vancomycin and Zosyn has been stopped. He has been started on Levaquin 250 mg every 24 hour. There is no other change in the medications today as compared with yesterday. ASSESSMENT: 76-year-old male with past medical history of end-stage renal disease on hemodialysis, history congestive heart failure with diastolic heart failure, chronic obstructive pulmonary disease, admitted this time because of healthcare associated pneumonia and Enterococcus faecalis urinary tract infection. PLAN: 1. End-stage renal disease on hemodialysis. Patient was dialyzed yesterday according to his schedule. No need of hemodialysis today. 2. Enterococcus faecalis UTI. It is sensitive to Levaquin. Patient has been switched to oral Levaquin. 3. Healthcare associated pneumonia. Patient was initially on IV vancomycin and Zosyn. He has been started on oral Levaquin, which should cover pneumonia as well. Shortness of breath is significantly better. 4. Anemia secondary end-stage renal disease. Patient's hemoglobin is 9.3, which is slightly suboptimal. He got a dose of Aranesp 100 mcg IV with hemodialysis 2 days ago. DISPOSITION: Patient is afebrile and hemodynamically stable at this time. He has been started on oral antibiotic. If he remains stable in the next 24-48 hours, he is stable to be discharged from nephrology standpoint.
[2017-01-23] MEDS: SENOKOT S TAB PO SCH ×2 (08:58→21:53)
[2017-01-23] MEDS: LORazepam 0.5 MG TAB PO SCH (09:00)
[2017-01-23] MEDS: MIRALAX *UNIT DOSE* 17GM PACKET PO SCH (09:00)
[2017-01-23] MEDS: (RENVELA) SEVELAMER **CARBONate** 800 MG TAB PO SCH ×3 (09:03→17:07)
[2017-01-23] MEDS: LABETALOL 100 MG TAB PO SCH ×2 (09:03→21:54)
[2017-01-23] MEDS: PANTOPRAZOLE 40MG TAB (PROTONIX) PO SCH (09:04)
[2017-01-23] MEDS: **hydrALAZINE HCL** 25 MG TAB PO SCH ×2 (09:04→21:55)
[2017-01-23] MEDS: ASPIRIN 81 MG ENTERIC TAB PO SCH (09:05)
[2017-01-23] MEDS: VITAMIN D 1,000 INTERNATIONAL UNITS TABLET PO SCH (09:05)
[2017-01-23] MEDS: cloNIDine 0.1 MG TAB PO SCH ×2 (09:05→21:55)
[2017-01-23] MEDS: ISOSORBIDE DIN. (ISORDIL) 20 MG TAB PO SCH ×3 (09:06→21:54)
[2017-01-23] MEDS: ESCITALOPRAM OXALATE 10 MG TAB (LEXAPRO) PO SCH (09:06)
[2017-01-23] MEDS: APIXABAN 5 MG TAB (ELIQUIS) PO SCH ×2 (09:06→21:55)
[2017-01-23] MEDS: MULTIVITAMINS/MINERALS THERAP 1 TAB PO SCH (09:07)
[2017-01-23] MEDS: HumaLOG INSULIN (NovoLOG) PER UNIT SC SCH ×4 (09:08→21:00)
--- NOTE | 2017-01-23 09:36 | IPNPDOC ---
Subjective Date Seen The patient was seen on 01/23/17. Subjective Chief Complaint/HPI The patient is a 76-year-old male admitted with a reason for visit of HCAP. Events since last encounter Notes improvement in energy today. Cough is less prominent. Constitutional: Denies: Chills, Fever, Night Sweats Pulmonary: Reports: Cough, Denies: Dyspnea Cardiovascular: Denies: Chest Pain, Palpitations, Orthopnea Gastrointestinal: Denies: Nausea, Vomiting, Abdominal Pain Genitourinary: Denies: Dysuria, Frequency, Incontinence Objective Physical Examination General Exam: Positive: Alert, No Acute Distress Eye Exam: Positive: PERRLA, Conjunctiva & lids normal, EOMI, Negative: Sclera icteric Neck Exam: Positive: Supple, Negative: JVD, thyromegaly Chest Exam: Positive: Clear to auscultation, Normal air movement, Negative: Rales Heart Exam: Positive: Rate Normal, Regular Rhythm, Normal S1, Normal S2, Negative: Murmurs, Rubs Abdomen Exam: Positive: Normal bowel sounds, Soft, Negative: Tenderness, Hepatospenomegaly Extremity Exam: Positive: Normal pulses, Negative: Clubbing, Cyanosis, Edema Psych Exam: Positive: Mental status NL, Mood NL, Oriented x 3 Assessment /Plan Problems (1) Diabetes Status: Chronic Problem Text: 01/23: glucose better with PM dose of basal insulin held; continue AM dose and SSI 01/22/2017: am hypoglycemia despite decreased dosing of Basal insulin. Bedtime dosing held. T2DM ID continue SSHI HD glargine 28 QHS 01/20 determir 14 qhs c 01/21 AM HBG 67; therefore, basal held (2) UTI (urinary tract infection) Status: Acute Response to Treatment: Stable Problem Text: 01/22/2017: E. Faecalis. Change to po Levaquin 250 mg po daily. 01/19 UCX E. faecalis >100K (3) End stage renal disease on dialysis Status: Chronic Problem Text: 01/[address] Peng, nephrology aware of admission. (4) HCAP (healthcare-associated pneumonia) Problem Text: Received 3 days of vanco/Zosyn 01/22/2017: WBC close to baseline. On home dose oxygen. Nasal spray prn dryness. Change to Levaquin po. 01/21 improved WBC 13K (01/19 24), Tm down to 100.4 01/21 1400, decreased O2 req 01/19 BG NG x 2 01/20 CT chest: 1. 18 mm mass / consolidation in the subpleural left upper lobe with adjacent noncalcified nodules measuring up to 11 mm. Differential diagnosis includes early acute pneumonia as well as malignancy. 3-month follow-up is recommended. 2. Chronic stable changes as described above. Previously identified pericardial effusion, small pleural effusions and bibasilar atelectasis have resolved. (new c/w 04/2016 CT chest) (5) COPD (chronic obstructive pulmonary disease) Status: Chronic Response to Treatment: Stable Problem Specific Plan: Monitor Clinically Problem Text: Continue nebs and oxygen from [facility]. (6) Diastolic CHF Permanent Comment: 1. Technically limited study due to poor acoustic window. Patient had a full echocardiogram on 04/23/2016. 2. Normal left ventricular size with mildly increased left ventricular wall thickness. Left ventricular systolic function appeared to be at the lower limit of normal, 50-55%. There seems to be mild global hypokinesis. 3. Normal left atrium. The right atrium and the right ventricle appeared to be normal. 4. The atrial septum appeared to be normal without evidence of defect or shunt. 5. Normal aortic root. 6. Small pericardial effusion noted, no evidence of cardiac tamponade. 7. Mildly calcified aortic valve, leaflet excursion appeared to be normal. Mildly calcified mitral annulus with normal anterior mitral valve leaflet motion. Normal tricuspid valve. The pulmonic valve and proximal pulmonary artery branches were not well visualized. 8. The inferior vena cava appeared to be normal in size Last Edited By: Cecilia Powell NP on Jan 20, 2017 09:08 Status: Chronic Response to Treatment: Stable Problem Specific Plan: Monitor Clinically Problem Text: 01/23/2017: small pleural effusion. no severe dyspnea. Appears well compensated 01/22/2017: CXR today. bibasilar crackles. appears well compensated . (7) ANKITA (obstructive sleep apnea) Status: Chronic Response to Treatment: Stable Problem Specific Plan: Monitor Clinically (8) Gait instability Status: Chronic Response to Treatment: Stable Problem Specific Plan: Monitor Clinically (9) CAD in viejas artery Status: Chronic Response to Treatment: Stable Problem Specific Plan: Consult Specialist, Monitor Clinically Problem Text: No active angina (10) Hypertension Status: Chronic Response to Treatment: Stable Problem Specific Plan: Monitor Clinically (11) Anemia Status: Chronic Response to Treatment: Stable Problem Text: 2 ACD on Iv Fe/EPA baseline hgb low 10s 01/21 9.3 Plan/VTE VTE Prophylaxis Ordered?: Yes (marcus) Plan Family Medicine Attending Note: I saw and examined Mr. Snyder this morning; I discussed his care with MARIO Corbin and I agree with his note as documented. Patient is c/o worsening cough today, but lungs are relatively clear and O2 sat is 98% on his home O2 of 2 L/min. He does not appear fluid overloaded with no lower extremity edema. Will monitor symptoms. Anticipate discharge back to [facility] tomorrow. (KES) VS, I&O, 24H, Fishbone Vital Signs/I&O Vital Signs Date Time Temp Pulse Resp B/P (MAP) Pulse Ox O2 Delivery O2 Flow Rate FiO2 01/23/17 09:06 115/48 01/23/17 09:03 75 01/23/17 06:00 97.1 17 98 Nasal Cannula 2.0 I&O- Last 24 Hours up to 6 AM 01/24/17 06:00 Intake Total 0 ml Output Total 0 ml Balance 0 ml Laboratory Data 24H LABS Laboratory Tests 2 01/22/17 12:08: Bedside Glucose (Misc Panel) 88 01/22/17 17:22: Bedside Glucose (Misc Panel) 84 01/22/17 19:49: Bedside Glucose (Misc Panel) 104 01/23/17 06:36: Nucleated Red Blood Cells % (auto) 0.0, Anion Gap 10, Glomerular Filtration Rate 15.9L, Blood Urea Nitrogen 40H, Creatinine 3.91H, Sodium Level 133L, Potassium Level 4.6, Chloride Level 97L, Carbon Dioxide Level 26, Calcium Level 9.5 CBC/BMP Laboratory Tests 01/23/17 06:36 Red Blood Count 2.85 L, Mean Corpuscular Volume 99.3 H, Mean Corpuscular Hemoglobin 30.9, Mean Corpuscular Hemoglobin Concent 31.1 L, Red Cell Distribution Width 17.4 H, Calcium Level 9.5 Microbiology Microbiology 01/19/17 Blood Culture - Preliminary, Resulted No Growth after 72 hours. All specime... 01/19/17 Blood Culture - Preliminary, Resulted No Growth after 72 hours. All specime... 01/19/17 Respiratory Virus Panel (PCR) (MICKEY) - Final, Complete 01/19/17 Urine Culture - Final, Complete Enterococcus Faecalis Cecilia Powell Jan 23, 2017 09:36 MANUEL KHAN MD Jan 23, 2017 12:47
[2017-01-23] MEDS: IPRATROPIUM 0.5MG/ALBUTEROL 2.5MG INH SOL UD 3ML (DUONEB)(J7620) NEB PRN ×2 (09:49→23:21)
[2017-01-23] MEDS ORDERED: DARBEPOETIN 100 MCG/0.5 ML *DIALYSIS* SYRINGE (J0882) IV SCH (13:00)
[2017-01-23 14:00] VITALS: BP 132/64
[2017-01-23] MEDS: SIMVASTATIN 20 MG TAB PO SCH (21:53)
[2017-01-23] MEDS: TERAZOSIN 5 MG CAP PO SCH (21:54)
[2017-01-23] MEDS: MIRTAZAPINE 15 MG TAB PO SCH (21:55)
[2017-01-23 22:00] VITALS: BP 122/56
[2017-01-24] MEDS: LevoFLOXacin 250 MG TABLET PO SCH (05:23)
[2017-01-24 06:00] VITALS: BP 126/58
[2017-01-24 06:05] LABS: MEAN CORPUSCULAR HEMOGLOBIN 30.7 pg (27.0-33.0); MEAN CORPUSCULAR VOLUME 95.9 fl (80.0-96.0); PLATELET COUNT, AUTOMATED 220 10^3/uL (150-450); RED CELL DISTRIBUTION WIDTH 17.1 % (11.5-14.5); WHITE BLOOD COUNT 10.7 10^3/uL (4.0-10.0)
[2017-01-24 06:22] LABS: CALCIUM LEVEL 9.5 MG/DL (8.8-10.2); CREATININE FOR GFR 4.76 MG/DL (0.70-1.30); GLOMERULAR FILTRATION RATE 12.7 (>42); POTASSIUM SERUM 4.9 MEQ/L (3.5-5.1)
[2017-01-24] MEDS: PANTOPRAZOLE 40MG TAB (PROTONIX) PO SCH (07:03)
[2017-01-24] MEDS: MULTIVITAMINS/MINERALS THERAP 1 TAB PO SCH (07:03)
[2017-01-24] MEDS: (RENVELA) SEVELAMER **CARBONate** 800 MG TAB PO SCH (07:03)
[2017-01-24 07:04] VITALS: BP 126/58
[2017-01-24] MEDS: ISOSORBIDE DIN. (ISORDIL) 20 MG TAB PO SCH (07:04)
[2017-01-24] MEDS: ESCITALOPRAM OXALATE 10 MG TAB (LEXAPRO) PO SCH (07:04)
[2017-01-24] MEDS: MIRALAX *UNIT DOSE* 17GM PACKET PO SCH (07:04)
[2017-01-24] MEDS: ASPIRIN 81 MG ENTERIC TAB PO SCH (07:04)
[2017-01-24] MEDS: LORazepam 0.5 MG TAB PO SCH (07:04)
[2017-01-24] MEDS: SENOKOT S TAB PO SCH (07:04)
[2017-01-24] MEDS: VITAMIN D 1,000 INTERNATIONAL UNITS TABLET PO SCH (07:04)
[2017-01-24] MEDS: APIXABAN 5 MG TAB (ELIQUIS) PO SCH (07:04)
[2017-01-24] MEDS: **hydrALAZINE HCL** 25 MG TAB PO SCH (07:05)
[2017-01-24] MEDS: cloNIDine 0.1 MG TAB PO SCH (07:05)
[2017-01-24] MEDS: LABETALOL 100 MG TAB PO SCH (07:05)
[2017-01-24] MEDS: HumaLOG INSULIN (NovoLOG) PER UNIT SC SCH (07:05)
[2017-01-24] MEDS ORDERED: LEVA1TAB PO (09:47)
--- NOTE | 2017-01-24 10:26 | IPN ---
DATE: 01/23/2017 Mr. Snyder is seen this morning on his bedside. He is sitting in the bed with head end elevated at about 65 degrees and coughing. He reports that he tried to drink water and choked and since then he has been coughing. He denies any fever or chills. He reports that he had a good sleep through the night. There is no nausea or vomiting. He is currently being treated for healthcare-acquired pneumonia and Enterococcus urinary tract infection. The patient has end-stage renal disease and remains dialysis dependent. PHYSICAL EXAMINATION: Temperature 97 degrees Fahrenheit, heart rate 76 per minute and respiratory rate 18 per minute. Blood pressure 115/48 mmHg and oxygen saturation 98% on 2 liters oxygen. His head is atraumatic. Neck is supple and jugular venous distention (JVD) is not elevated. He has an internal jugular vein dialysis catheter on right upper chest. Pupils are equal and reactive to light and sclera is anicteric. Ears, nose and throat are unremarkable. Heart sounds are regular and lungs with bilateral rhonchi and mild expiratory wheezing. Abdomen is soft and nontender and without palpable organomegaly. Bowel sounds are normal. Extremities have no cyanosis or clubbing. Left upper arm AV fistula is patent. Neurologically, he is awake, alert and oriented times three. Today's labs show WBC count 10.4, hemoglobin 8.8 and hematocrit 28.3. Sodium 133 and potassium 4.6. BUN 40 and creatinine 3.91. PROBLEMS: 1. End-stage renal disease. The patient remains dialysis dependent. We will plan on doing his dialysis again on Friday. His volume status is well-compensated and electrolytes are within normal range. 2. Congestive heart failure. His volume status seems to be reasonably well-compensated with hemodialysis. We will try to remove about 3 liters of fluid with next hemodialysis. 3. Cough and pneumonia. The patient remains on levofloxacin 200 mg daily in addition to nebulizers, which will be continued. 4. Hyponatremia. This is mild and related to end-stage renal disease and congestive heart failure. No intervention is indicated at this point. It is likely to improve with hemodialysis and fluid removal. 5. Anemia. His anemia is slightly worse. We will continue to monitor and treat him with Aranesp during hemodialysis. He is currently receiving 100 mcg of Aranesp and I will change to 200 mcg instead with next dose being next week.
--- NOTE | 2017-01-24 21:11 | IPN ---
DATE: 01/24/2017 SUBJECTIVE: Mr. Snyder is seen this morning on his bedside. He is looking much better today compared with yesterday and reports that his cough has improved. He remains chronically short of breath and using oxygen via nasal cannula. He has no fever or chills. He denies any nausea, vomiting or diarrhea. He is very weak and remains chronically bed-bound. He is usually unable to transfer from bed to chair. Otherwise, review of system is unremarkable. PHYSICAL EXAMINATION: Temperature 97.2 degrees Fahrenheit, heart rate 70 per minute and respiratory rate 20 per minute. Blood pressure 126/58 mmHg and oxygen saturation 96% on two liters oxygen. His head is atraumatic. Neck is supple and without jugular venous distention (JVD) or thyroid enlargement. Dialysis catheter in right internal jugular vein is intact. Pupils are equal and reactive to light and sclerae are anicteric. Ears, nose and throat are unremarkable. Heart sounds are regular and lungs have bilateral scattered rhonchi. Abdomen is soft and nontender and without a palpable organomegaly. Bowel sounds are normal. Extremities have no cyanosis or clubbing. Neurologically, he is awake, alert and oriented times three. Skin has no rash or ulcers. Left upper arm arteriovenous (AV) fistula is patent. LABORATORY DATA: Today's labs show WBC count 10.7, hemoglobin 8.9 and hematocrit 27.8. Platelets 220. Sodium 133 and potassium 4.9. BUN 59 and creatinine 4.76. PROBLEMS: 1. End-stage renal disease. The patient is due for dialysis today. Initially our plan was to dialyze him here. However, if he gets discharged, then he will go to outpatient dialysis clinic for his regular dialysis treatment later today. 2. Cough and shortness of breath. The patient is currently being treated for possible aspiration pneumonia or hospital-acquired pneumonia. He is afebrile and should continue antibiotic for a few more days. 3. Enterococcus urinary tract infection. The patient seems to be doing better on current antibiotic therapy. No changes are being made today. He is now on levofloxacin 250 mg daily which will be continued for at least a week. 4. Hypertension. His blood pressure is low and I was called by nursing staff this morning. We held all his antihypertensive medications in anticipation for dialysis. I am going to stop his hydralazine altogether and will continue to monitor his blood pressure closely. If needed, we will make further adjustments in his antihypertensive medications. 5. Anemia. His anemia is stable and he will be treated with erythropoietin-stimulating agent (TERERNCE) in outpatient dialysis clinic. DISPOSITION: From renal standpoint, the patient can be discharged back to long term today and we will followup in outpatient dialysis clinic.
--- NOTE | 2017-01-25 13:15 | DSES ---
DATE OF ADMISSION: 01/19/2017 DATE OF DISCHARGE: 01/24/2017 ATTENDING PHYSICIAN: Dr. rBadley Johnston PRIMARY CARE PHYSICIAN: Dr. Bradley Johnston at [facility] OFFICE ADMINISTRATOR: Dr. Edith Peng HISTORY OF PRESENT ILLNESS: This is a 76-year-old male resident of [facility] who presented to the emergency department secondary to hypotension and fever noted in hemodialysis. The patient admitted to malaise and fatigue. Prior to his dialysis treatment, he was dialyzed for approximately 3 hours and then was subsequently transferred to [facility] emergency department (ED) for further workup. Workup proved positive for an elevated white blood cell count of 23,000. CT of chest proved 18 mm mass consolidation subpleural in the left upper lobe with adjacent non calcified nodule. The patient was admitted and treated for pneumonia versus malignancy. Respiratory virus panel proved negative. HOSPITAL COURSE: The patient received three days of piperacillin/tazobactam and vancomycin. He was transitioned over to Levaquin on 01/22/2017 secondary to positive for E. Faecalis in urine and coverage for his pneumonia. The patient improved throughout hospitalization well. He remained afebrile. Oxygen saturations remained stable. The patient's basal insulin was held secondary to some hypoglycemic episodes and the patient has received limited coverage with regular insulin throughout hospitalization. CONSULTATIONS: Neurology - The patient was dialyzed accordingly as an inpatient and Dr. Peng had followed patient throughout hospitalization. PHYSICAL EXAMINATION: Today, vital signs are stable. He is afebrile. Oxygen saturation 96% on 2 liters nasal cannula which patient wears chronically. Blood pressure 132/64. Oxygen saturation 96% on room air. Temperature 96.9. HEENT: Neck is supple, without lymphadenopathy. CARDIOVASCULAR: Heart rate and rhythm are regular. PULMONARY: Lungs are clear. ABDOMEN: Soft. Nontender. BILATERAL LOWER EXTREMITIES: Without edema. NEUROLOGIC: The patient is alert and oriented times three. Conversation is appropriate and congruent. ASSESSMENT/DISCHARGE DIAGNOSES: 1. Left upper lobe pneumonia. 2. 18 mm consolidation versus mass. 3. Urinary tract infection secondary to Enterococcus faecalis. 4. End stage renal disease on hemodialysis. SECONDARY DIAGNOSES: 1. Diabetes. 2. Hypertension. 3. 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 4. Hypertension. 5. Diastolic congestive heart failure. 6. Gout. 7. Benign prostatic hypertrophy. 8. Obstructive sleep apnea. 9. Hyperlipidemia. PLAN: The patient will be discharged back to [facility]. Diet is a carbohydrate consistent renal diet. Activity - return to previous activity. Followup with primary care provider (PCP) in [place] within the next week. The patient needs a CT of the chest in three months to follow up on mass versus consolidation. MEDICATIONS: - Levaquin 250 mg daily for 7 days - Tylenol 650 mg per rectum every 4 hours as needed for pain or fever - Tylenol 325 mg two by mouth every 4 hours as needed for pain or fever - albuterol sulfate nebulizer one vial three times a day - albuterol sulfate nebulizer every 4 hours as needed for shortness of breath - DuoNeb every 2 hours as needed shortness of breath - Eliquis 5 mg by mouth twice a day - aspirin 81 mg by mouth daily - bisacodyl 10 mg suppository per rectum daily as needed constipation - vitamin D 1000 international units by mouth daily - clonidine 0.1 mg tablet by mouth twice a day - senna 2 tabs by mouth twice a day - Dulera 2 puffs twice a day - enema per rectum daily as needed constipation - Ensure Enlive 120 mL by mouth three times a day - Lexapro 10 mg by mouth daily - ferrous sulfate 325 mg by mouth twice a day - guaifenesin DM 100-10 per 5 mL, 10 mL by mouth every 4 hours as needed for cough - hydralazine 25 mg by mouth twice a day - isosorbide dinitrate 20 mg by mouth three times a day - labetalol 300 mg by mouth twice a day - lidocaine cream topically three times per week pre dialysis - lorazepam 0.5 mg daily - lorazepam 2 mg by mouth three times per week - lorazepam 0.5 mg by mouth every 6 hours as needed for anxiety - mirtazapine 15 mg by mouth at bedtime - multivitamin 1 tab daily - pantoprazole sodium 20 mg daily - MiraLAX 17 grams by mouth daily - Renvela 800 mg 2 by mouth three times a day - simvastatin 20 mg tablet, 20 mg by mouth at bedtime - saline nasal spray every 2 hours as needed for nasal dryness - Kionex 15 grams per 60 mL suspension, 60 mL by mouth weekly - terazosin 5 mg by mouth at bedtime The patient is discharged in stable and satisfactory condition with no further questions at time of discharge.
== END 2017-01-24 12:23 | DRG 193 ==
LOC: EDBD 19:00 → M ED 19:00 → M ED INP 22:13 → M MSPAV 23:00
PROVIDERS: ADMIT Internal Medicine; ATTEND Family Medicine
PROC: 5A1D70Z Performance of Urinary Filtration, Intermittent, Less than 6 Hours Per Day (ICD-10-PCS; principal; 2017-01-21)
DX: J18.9 Pneumonia, unspecified organism (principal); N18.6 End stage renal disease; N39.0 Urinary tract infection, site not specified; I50.32 Chronic diastolic (congestive) heart failure; I13.2 Hypertensive heart and chronic kidney disease with heart failure and with stage 5 chronic kidney disease, or end stage renal disease; N25.81 Secondary hyperparathyroidism of renal origin; E87.1 Hypo-osmolality and hyponatremia; I25.10 Atherosclerotic heart disease of native coronary artery without angina pectoris; I25.2 Old myocardial infarction; E11.22 Type 2 diabetes mellitus with diabetic chronic kidney disease; M10.30 Gout due to renal impairment, unspecified site; J44.9 Chronic obstructive pulmonary disease, unspecified; N40.0 Benign prostatic hyperplasia without lower urinary tract symptoms; R26.89 Other abnormalities of gait and mobility; J84.10 Pulmonary fibrosis, unspecified; G47.33 Obstructive sleep apnea (adult) (pediatric); D63.1 Anemia in chronic kidney disease; B95.2 Enterococcus as the cause of diseases classified elsewhere; E11.649 Type 2 diabetes mellitus with hypoglycemia without coma; E87.6 Hypokalemia; E78.5 Hyperlipidemia, unspecified; Z86.711 Personal history of pulmonary embolism; Z99.2 Dependence on renal dialysis; Z96.653 Presence of artificial knee joint, bilateral; Z90.49 Acquired absence of other specified parts of digestive tract; Z79.82 Long term (current) use of aspirin; Z79.4 Long term (current) use of insulin; Z79.899 Other long term (current) drug therapy; Y95 Nosocomial condition

== ENCOUNTER → 2017-02-06 | Outpatient (CLI) | payer MEDICARE ==
[~2017-02-06] MED LIST changes: +DOXY-278 PO; +DULE200A INH; +FLUC10TA PO; +ISOVUE-300 61% 50ML VIAL (Q9967) As Ordered ONE; +KION15SU PO; +LEVA1TAB PO; +LIDO1CRE14 TOP; +PANT20TA PO; +SEVE800T3 PO
--- NOTE | 2017-02-19 11:37 | REPIR ---
DATE OF PROCEDURE: 02/06/2017 PREPROCEDURE DIAGNOSES: End stage renal disease, dysfunctional left brachiocephalic arterial venous fistula, right internal jugular vein Perm-Cath. POSTPROCEDURE DIAGNOSES: End stage renal disease, dysfunctional left brachiocephalic arterial venous fistula, right internal jugular vein Perm-a-Cath. PROCEDURE: Left brachiocephalic arterial venous fistulogram, retrograde left brachial artery angiogram. SURGEON: Dr. Pino Gan. HEALTHCARE CORPORATE ACCOUNT DIRECTOR: Fidelia Warner and Da Hannah. ANESTHESIA: Local with 1 mL of 2% lidocaine. ESTIMATED BLOOD LOSS: FLUORO TIME: 2.222 minutes. CONTRAST: 3 mL. HEPARIN: None. COMPLICATIONS: None. DRAINS: None. SPECIMENS: None. IMPLANTS: None. INDICATION: The patient is a 76-year-old male with end stage renal disease who dialyses through the right internal jugular vein Perm-a-Cath and has a left brachiocephalic arteriovenous fistula which has been non-maturing and difficult to use for hemodialysis. Patient will undergo a fistulogram with possible angioplasty and/or stent. Risks, benefits and alternative treatment options were discussed with the patient. PROCEDURE: The patient was taken to the angiography suite and placed supine on the angiography room table and then prepped and draped in a standard surgical fashion. The fistula was then cannulated with a micropuncture needle after anesthetizing the overlying skin with 2% lidocaine. A fistulogram and retrograde brachial artery angiogram were performed showing no intervention was required. The sheath was removed and manual compression applied at the puncture site for hemostasis. Dressings were then applied. Patient tolerated the procedure well. All instrument, sponge and needle counts were correct at the end of the case. There were no complications. Dr. Gan was present for and directed the entire case. Patient was transferred to the holding area and subsequently discharged in stable condition. RADIOLOGICAL SUPERVISION INTERPRETATION: The fistulogram showed the cephalic vein to the widely patent and with adequate size caliber for hemodialysis access. There was no stenosis at the arteriovenous anastomosis. The patient will continue to attempt usage of the arteriovenous fistula and once he is successfully using the fistula, the Perm-a-Cath will be removed.
== END | disposition home or self-care (01) ==
LOC: EDSTATUS 11:00 → M IRPRO 11:33
PROVIDERS: ATTEND Surgery Vascular Surgery
DX: T82.590A Other mechanical complication of surgically created arteriovenous fistula, initial encounter (principal); N18.6 End stage renal disease
CPT/HCPCS: 36901; C1894; Q9967

== ENCOUNTER → 2017-02-25 | Outpatient (REF) | payer MEDICARE ==
[~2017-02-25] MED LIST changes: -ISOVUE-300 61% 50ML VIAL (Q9967) As Ordered ONE
--- NOTE | 2017-02-25 10:05 | REP ---
Clinical: Shortness of breath. Comparison: 01/22/2017. Findings: Double-lumen central venous catheter with tip in the SVC. Stable cardiomegaly. Stable increased interstitial markings cannot exclude pulmonary vascular congestion and interstitial edema. Trace basilar atelectasis. No obvious effusion. No pneumothorax. Skeletal structures intact. Impression: Chronic changes. Cannot exclude pulmonary vascular congestion/interstitial edema with trace left basilar atelectasis Signed by Johnny Berrios MD 02/25/2017 09:57 A
== END ==
LOC: SKLAB7 07:18
PROVIDERS: ATTEND Family Medicine
DX: R06.02 Shortness of breath (principal)

== ENCOUNTER 2017-03-23 12:03 | Emergency (ER) | payer MEDICARE ==
[2017-03-23 13:07] LABS: BASO # 0.1 10^3/uL (0.0-0.2); BASO % 0.5 % (0.0-1.0); EOS # 0.4 10^3/uL (0.0-0.50); EOS % 2.4 % (0.0-3.0); HEMATOCRIT 30.4 % (42.0-52.0); HEMOGLOBIN 9.1 g/dl (14.0-18.0); IMMATURE GRANULOCYTE # 0.1 10^3/uL (0-0); IMMATURE GRANULOCYTE % 0.5 % (0-0); LYMPH # 1.1 10^3/uL (1.5-4.5); LYMPH % 7.2 % (24.0-44.0); MEAN CORPUSCULAR HEMOGLOBIN 30.1 pg (27.0-33.0); MEAN CORPUSCULAR HGB CONC 29.9 g/dl (32.0-36.5); MEAN CORPUSCULAR VOLUME 100.7 fl (80.0-96.0); MONO # 1.1 10^3/uL (0.0-0.8); MONO % 6.9 % (0.0-5.0); NEUTROPHILS # 12.6 10^3/uL (1.8-7.7); NEUTROPHILS % 82.5 % (36.0-66.0); PLATELET COUNT, AUTOMATED 264 10^3/uL (150-450); RED BLOOD COUNT 3.02 10^6/uL (4.30-6.10); RED CELL DISTRIBUTION WIDTH 17.5 % (11.5-14.5); WHITE BLOOD COUNT 15.2 10^3/uL (4.0-10.0)
[2017-03-23 13:20] LABS: ANION GAP 11 MEQ/L (8-16); BLOOD UREA NITROGEN 41 MG/DL (7-18); CALCIUM LEVEL 9.3 MG/DL (8.8-10.2); CARBON DIOXIDE LEVEL 26 MEQ/L (21-32); CHLORIDE LEVEL 98 MEQ/L (98-107); CREATININE FOR GFR 4.14 MG/DL (0.70-1.30); GLOMERULAR FILTRATION RATE 14.9 (>42); GLUCOSE, FASTING 151 MG/DL (83-110); NT-PRO BNP 17918 PG/ML (<450); POTASSIUM SERUM 5.1 MEQ/L (3.5-5.1); SODIUM LEVEL 135 MEQ/L (136-145)
[2017-03-23 13:20] LABS: LACTIC ACID SEPSIS PROTOCOL 1.7 MMOL/L (0.4-2.0)
[2017-03-23] MEDS: LevoFLOXacin IV 500 MG in APPROPRIATE DILUENT 1 EA IV (14:03)
[2017-03-23] MEDS: methylPREDNISolone INJ 40 MG/1 ML VIAL (J2920) IV (14:03)
[2017-03-23] MEDS: IPRATROPIUM 0.5MG/ALBUTEROL 2.5MG INH SOL UD 3ML (DUONEB)(J7620) NEB (14:13)
== END 2017-03-23 17:17 | disposition home or self-care (01) ==
LOC: M ED 12:03
DX: R06.02 Shortness of breath (principal); N18.9 Chronic kidney disease, unspecified; R13.10 Dysphagia, unspecified; I25.10 Atherosclerotic heart disease of native coronary artery without angina pectoris; E11.9 Type 2 diabetes mellitus without complications; I11.9 Hypertensive heart disease without heart failure; N40.0 Benign prostatic hyperplasia without lower urinary tract symptoms; G47.30 Sleep apnea, unspecified; I25.2 Old myocardial infarction; Z79.899 Other long term (current) drug therapy; Z79.82 Long term (current) use of aspirin; Z87.19 Personal history of other diseases of the digestive system; Z99.2 Dependence on renal dialysis; Z87.891 Personal history of nicotine dependence
CPT/HCPCS: J2920

== ENCOUNTER → 2017-03-23 | Outpatient (REF) | payer MEDICARE | LOC: M RAD 09:32 | DX: R13.10 Dysphagia, unspecified (principal); I51.7 Cardiomegaly ==

== ENCOUNTER → 2017-03-28 | Outpatient (REF) | payer MEDICARE | LOC: SKLAB7 13:30 | DX: Z01.89 Encounter for other specified special examinations (principal) | CPT/HCPCS: 87169 ==

== ENCOUNTER → 2017-04-03 | Outpatient (CLI) | payer MEDICARE, MEDICAID ==
[~2017-04-03] MED LIST changes: -/HCTZ25TA PO; -/LABE20TA PO; -/TIOT18INH INH; -/WARF25TA; -/WARF25TA OR; -ACET1TAB16 PO; -ACET30TAB PO; -ACET650T3 PO; -ACET65SU PR; -ALB2.5NEB NEB; -ALBU17IN2 INH; -ALBU83IN INH; -AMLO10TA2 PO; -AMMONIUM LACTATE 12%; -ASCO500T PO; -ASPI1TAB15 PO; -ASPI81TA45; -ASPI81TA7 OR; -ASPI81TA85 PO; -ASPI81TAEC PO; -ATIV2TAB PO; -ATOR1TAB21 PO; -BENA25CA4 PO; -BISA10SU4 PR; -CART240C OR; -CATA0.1T OR; -CATA0.1T PO; -CLOBETASOL 0.05%; -CLON-412 PO; -CLONI1TA PO; -CLOP75TA2 PO; -CODEINE PO; -COLC0.6T; -COLC1TAB13 PO; -COMPLETE PO; -DIAB5TAB; -DIAB5TAB PO; -DIPH25CA PO; -DOXY-278 PO; -DULC10SU2 PR; -DULC5TAB PO; -DULE200A INH; -ELIQ5TAB PO; -ENEMENE6 PR; -ENSULIQ64 PO; -FERR1TAB8 PO; -FERR325T3 PO; -FLUC10TA PO; -FORMOTEROL; -FURO20TA2 PO; -FURO40TA2 PO; -GLIP10TA6 PO; -GLUC1000 PO; -GLUC1INJ11 SC; -GLUC4CHW PO; -GLYB5TA PO; -GUAISYP5 PO; -HYDR-3910 PO; -HYDR100T13 PO; -HYDR12.55 PO; -HYDR12CA PO; -HYDR1CAP25 PO; -HYDR25TA7; -HYDR50CA2 PO; -HYDR50TA PO; -HYDRO50TAB PO; -INSUDET SC; -INSUH10VL SC; -INSUHUMDS SC; -INSULANT SC; -IPRASOL4 INH; -ISOS20TAB PO; +ISOVUE-300 61% 50ML VIAL (Q9967) As Ordered; -KION15SU PO; -LABE10TAB PO; -LABE20TAB PO; -LABE30TA PO; -LANTINJ4 SC; -LASI20TA OR; -LEVA1TAB PO; -LEVA1TAB2 PO; -LEVA750T7 PO; -LEXA1TAB PO; -LIDO1CRE14 TOP; +LIDOCAINE 2% MDV 20 ML VIAL As Ordered; -LOPI600T PO; -LORA0.5T11 PO; -LORA2TAB9 PO; -LOSA50TA20 PO; -MAPA325T2 PO; -MIRA3350 PO; -MIRA33504 PO; -MIRALEX; -MIRT15TA3 PO; -NIFE60TA3 PO; -NIFE60TA4; -NIFE60TA6 PO; -NOVOINJ3 SC; -OMEP20CA3 PO; -PAME10CA PO; -PANT20TA PO; -PANT40TA2 PO; -PEG1POW PO; -PERC5TAB8; -PERF20NE2 INH; -PLAV1TAB2 PO; -PRED10TA PO; -PRED20TA PO; -PRIL20CA PO; -PROV90AE; -PULM0.5S INH; -SALI0.652; -SENN1TAB2 PO; -SENN8.6T5; -SENN8.6T54 PO; -SENO8.6T10 PO; -SEVE800T3 PO; -SIMV20TA2 PO; -SIMV40TA2; -SIMV40TA2 PO; -SITA50TAB OR; -SPIR1CAP INH; -SYMB16INH INH; -SYMB80AE INH; -TERA2CAP PO; -TERA5CA OR; -TERA5CA PO; -TIOT18INH INH; -TYLE-18 PO; -TYLE1TAB5 PO; -TYLE325T5 PO; -TYLENOL PO; -ULOR80TA PO; -VITA-182 PO; -VITA100066 PO; -VITA500C24 PO; -VITA500T88 PO; -VITAD1000T PO; -VITAMIN PO; -VITMTA PO; -WARF-18 PO; -ZOCO20TA; -ZOCO20TA PO; -ZOFR40IN IV; -dextrose 50% IV; -duoneb NEB; -mometasone furoate; -proventil neb NEB
== END | disposition home or self-care (01) ==
LOC: M IRPRO 12:55
DX: T82.858A Stenosis of other vascular prosthetic devices, implants and grafts, initial encounter (principal); N18.6 End stage renal disease; E04.1 Nontoxic single thyroid nodule; Z99.2 Dependence on renal dialysis
CPT/HCPCS: 36902

== ENCOUNTER → 2017-04-07 | Outpatient (REF) | payer MEDICARE, MEDICAID | LOC: SKLAB7 13:12 | DX: J84.9 Interstitial pulmonary disease, unspecified (principal); I51.7 Cardiomegaly; R06.02 Shortness of breath | CPT/HCPCS: 71046 ==

== ENCOUNTER → 2017-04-10 | Outpatient (REF) | payer MEDICARE, MEDICAID ==
[2017-04-11 10:49] LABS: IMMEDIATE SPIN CROSSMATCH 1 2
== END ==
LOC: SKLAB7 07:07
DX: D64.9 Anemia, unspecified (principal)
CPT/HCPCS: 36415

== ENCOUNTER 2017-04-11 09:55 | Outpatient (CLI) | payer MEDICARE, MEDICAID ==
[2017-04-11] MEDS: diphenhydrAMINE 25 MG CAP PO ×2 (10:40)
[2017-04-11] MEDS: ACETAMINOPHEN 325 MG TAB PO ×2 (10:44)
== END 2017-04-11 15:45 ==
LOC: M INFU 09:55
DX: N18.6 End stage renal disease (principal); D63.1 Anemia in chronic kidney disease; J44.9 Chronic obstructive pulmonary disease, unspecified; I12.0 Hypertensive chronic kidney disease with stage 5 chronic kidney disease or end stage renal disease; E78.5 Hyperlipidemia, unspecified; Z79.82 Long term (current) use of aspirin; Z79.899 Other long term (current) drug therapy
CPT/HCPCS: 36430

== ENCOUNTER → 2017-04-14 | Outpatient (REF) | payer MEDICARE, MEDICAID ==
[2017-04-14 14:44] LABS: INFLUENZA A AMPLIFICATION NEGATIVE (NEGATIVE); INFLUENZA B AMPLIFICATION NEGATIVE (NEGATIVE); RSV AMPLIFICATION NEGATIVE (NEGATIVE)
== END ==
LOC: SKLAB7 10:57
DX: R05 Cough (principal)
CPT/HCPCS: 87631

== ENCOUNTER 2017-04-16 20:08 | Inpatient (IN) | payer MEDICARE, MEDICAID ==
[2017-04-16] MEDS: HumaLOG INSULIN (NovoLOG) PER UNIT SC (21:00)
[2017-04-16] MEDS: TERAZOSIN 5 MG CAP PO (21:00)
[2017-04-16] MEDS: ADVAIR HFA 115/21MCG INHALER INH (21:00)
[2017-04-16] MEDS: NITROGLYCERIN 2% OINT 1 GM *U/D* PKT TOP (21:46)
[2017-04-16] MEDS: IPRATROPIUM 0.5MG/ALBUTEROL 2.5MG INH SOL UD 3ML (DUONEB)(J7620) NEB (22:21)
[2017-04-16 22:25] LABS: VENOUS BASE EXCESS 5.1 (-2.0-2.0); VENOUS HCO3 30.5 MEQ/L (23.0-27.0); VENOUS O2 SATURATION 97.9 % (60.0-80.0); VENOUS PARTIAL PRESSURE CO2 49.1 mmHg (38.0-50.0); VENOUS PH 7.411 UNITS (7.330-7.430)
[2017-04-16 22:26] LABS: BASO # 0.1 10^3/uL (0.0-0.2); BASO % 0.5 % (0.0-1.0); EOS # 0.4 10^3/uL (0.0-0.50); EOS % 3.6 % (0.0-3.0); HEMATOCRIT 32.6 % (42.0-52.0); HEMOGLOBIN 9.7 g/dl (14.0-18.0); IMMATURE GRANULOCYTE % 0.5 % (0-3.0); LYMPH # 0.4 10^3/uL (1.5-4.5); MEAN CORPUSCULAR HEMOGLOBIN 28.4 pg (27.0-33.0); MEAN CORPUSCULAR HGB CONC 29.8 g/dl (32.0-36.5); MEAN CORPUSCULAR VOLUME 95.6 fl (80.0-96.0); MONO # 0.6 10^3/uL (0.0-0.8); MONO % 5.9 % (0.0-5.0); NEUTROPHILS # 8.9 10^3/uL (1.8-7.7); NEUTROPHILS % 85.5 % (36.0-66.0); PLATELET COUNT, AUTOMATED 237 10^3/uL (150-450); RED BLOOD COUNT 3.41 10^6/uL (4.30-6.10); RED CELL DISTRIBUTION WIDTH 19.4 % (11.5-14.5); WHITE BLOOD COUNT 10.4 10^3/uL (4.0-10.0)
[2017-04-16 22:30] LABS: INFLUENZA A AMPLIFICATION NEGATIVE (NEGATIVE); INFLUENZA B AMPLIFICATION NEGATIVE (NEGATIVE)
[2017-04-16 22:38] LABS: LACTIC ACID SEPSIS PROTOCOL 0.8 MMOL/L (0.4-2.0)
[2017-04-16 22:43] LABS: ANION GAP 6 MEQ/L (8-16); BLOOD UREA NITROGEN 9 MG/DL (7-18); CALCIUM LEVEL 8.7 MG/DL (8.8-10.2); CARBON DIOXIDE LEVEL 33 MEQ/L (21-32); CHLORIDE LEVEL 103 MEQ/L (98-107); CREATININE FOR GFR 1.48 MG/DL (0.70-1.30); GLOMERULAR FILTRATION RATE 48.9 (>42); GLUCOSE, FASTING 113 MG/DL (70-100); POTASSIUM SERUM 3.8 MEQ/L (3.5-5.1); SODIUM LEVEL 142 MEQ/L (136-145)
[2017-04-17] MEDS ORDERED: GLUCAGON FOR INJ 1 MG VIAL (J1610) SC (00:30)
[2017-04-17] MEDS ORDERED: GLUCOSE 4 GM CHEW TABLET PO (00:30)
[2017-04-17] MEDS ORDERED: DEXTROSE 50% 50 ML SYRINGE IV (00:30)
[2017-04-17] MEDS ORDERED: SODIUM CHLORIDE 0.9% NASAL GEL 15MG (AYR) (00:45)
[2017-04-17] MEDS ORDERED: BISACODYL 10 MG SUPP PR (00:45)
[2017-04-17] MEDS ORDERED: EMLA CREAM 5GM (LIDOCAINE/PRILOCAINE) TOP (00:45)
[2017-04-17] MEDS ORDERED: FLEET ENEMA PR (00:45)
[2017-04-17] MEDS ORDERED: PROMETHAZINE INJ 25 MG/ML VIAL (J2550) IM (00:45)
[2017-04-17] MEDS ORDERED: SODIUM CHLORIDE NASAL 0.65% SPRAY BTL (OCEAN) (00:45)
[2017-04-17 01:24] LABS: BEDSIDE GLUCOSE 102 MG/DL (83-110)
[2017-04-17] MEDS: POLYVINYL ALCOHOL OPHTH SOLN 15 ML(LIQUITEARS) OS ×5 (01:40→20:57)
[2017-04-17] MEDS: IPRATROPIUM 0.5MG/ALBUTEROL 2.5MG INH SOL UD 3ML (DUONEB)(J7620) INH ×3 (01:40→09:04)
[2017-04-17] MEDS: guaiFENesin DM LIQ 10ML UD PO ×2 (01:41→20:57)
[2017-04-17] MEDS: SENOKOT S TAB PO ×3 (01:42→20:56)
[2017-04-17] MEDS: ISOSORBIDE DIN. (ISORDIL) 20 MG TAB PO ×4 (01:42→20:29)
[2017-04-17] MEDS: ACETAMINOPHEN TAB 650MG DOSE (2X325MG) PO (01:42)
[2017-04-17] MEDS: MIRTAZAPINE 15 MG TAB PO ×2 (01:42→20:57)
[2017-04-17] MEDS: SIMVASTATIN 20 MG TAB PO ×2 (01:43→20:57)
[2017-04-17] MEDS: APIXABAN 5 MG TAB (ELIQUIS) PO ×3 (01:43→20:56)
[2017-04-17] MEDS: LABETALOL 100 MG TAB PO ×3 (01:43→20:29)
[2017-04-17] MEDS: cloNIDine 0.1 MG TAB PO ×3 (01:43→20:29)
[2017-04-17] MEDS: VANCOMYCIN HCL 1,000 MG, VIAL MATE ADAPTER 1 EACH in D5W 250 ML IV ×2 (01:44→17:16)
[2017-04-17] MEDS: **hydrALAZINE HCL** 25 MG TAB PO ×3 (01:44→20:28)
[2017-04-17] MEDS: PIPERACILLIN/TAZOBACTAM SOD 3.375 GM in APPROPRIATE DILUENT 1 EA IV ×2 (02:47→11:03)
[2017-04-17] MEDS: FERROUS SULFATE 325MG TAB PO (04:54)
[2017-04-17] MEDS ORDERED: HEPARIN SOD (PORCINE) 5000 UNITS/ML VIAL SC (06:00)
[2017-04-17] MEDS: HumaLOG INSULIN (NovoLOG) PER UNIT SC ×4 (07:30→20:50)
[2017-04-17 08:57] LABS: BEDSIDE GLUCOSE 104 MG/DL (83-110)
[2017-04-17] MEDS: ADVAIR HFA 115/21MCG INHALER INH ×2 (09:00→21:00)
[2017-04-17] MEDS ORDERED: (RENVELA) SEVELAMER **CARBONate** 800 MG TAB PO (09:00)
[2017-04-17] MEDS: ASPIRIN 81 MG ENTERIC TAB PO (09:00)
[2017-04-17] MEDS: LORazepam 0.5 MG TAB PO (09:00)
[2017-04-17] MEDS: ESCITALOPRAM OXALATE 10 MG TAB (LEXAPRO) PO (09:00)
[2017-04-17] MEDS: PANTOPRAZOLE 20 MG TAB PO (09:00)
[2017-04-17] MEDS: MIRALAX *UNIT DOSE* 17GM PACKET PO (09:01)
[2017-04-17] MEDS: (RENVELA) SEVELAMER **CARBONate** 800 MG TAB PO ×3 (09:01→17:30)
[2017-04-17] MEDS: VITAMIN D 1,000 INTERNATIONAL UNITS TABLET PO (09:03)
[2017-04-17] MEDS: MULTIVITAMINS/MINERALS THERAP 1 TAB PO (09:06)
[2017-04-17] MEDS ORDERED: LevoFLOXacin IV 750 MG in APPROPRIATE DILUENT 1 EA IV (11:45)
[2017-04-17 12:21] LABS: NT-PRO BNP 43569 PG/ML (<450)
[2017-04-17] MEDS: ALBUTEROL SULFATE 2.5 MG/0.5 ML INH NEB SOLN INH ×4 (12:33→20:17)
[2017-04-17] MEDS: CHECK TO SEE IF PATIENT IS RECEIVING DIALYSIS TODAY AND REFER TO THE VANCOMYCIN ORDER XX (17:00)
[2017-04-17 17:11] LABS: BEDSIDE GLUCOSE 113 MG/DL (83-110)
[2017-04-17] MEDS: LevoFLOXacin IV 750 MG in APPROPRIATE DILUENT 1 EA IV (18:33)
[2017-04-17] MEDS: TERAZOSIN 5 MG CAP PO (20:56)
[2017-04-17 20:57] LABS: BEDSIDE GLUCOSE 109 MG/DL (83-110)
[2017-04-18] MEDS: FERROUS SULFATE 325MG TAB PO (05:52)
[2017-04-18] MEDS: (RENVELA) SEVELAMER **CARBONate** 800 MG TAB PO ×3 (05:52→18:07)
[2017-04-18] MEDS: ESCITALOPRAM OXALATE 10 MG TAB (LEXAPRO) PO (05:52)
[2017-04-18] MEDS: SENOKOT S TAB PO ×2 (05:52→21:01)
[2017-04-18] MEDS: ASPIRIN 81 MG ENTERIC TAB PO (05:52)
[2017-04-18] MEDS: PANTOPRAZOLE 20 MG TAB PO (05:53)
[2017-04-18] MEDS: LORazepam 0.5 MG TAB PO (05:53)
[2017-04-18] MEDS: MIRALAX *UNIT DOSE* 17GM PACKET PO (05:53)
[2017-04-18] MEDS: MULTIVITAMINS/MINERALS THERAP 1 TAB PO (05:53)
[2017-04-18] MEDS: VITAMIN D 1,000 INTERNATIONAL UNITS TABLET PO (05:53)
[2017-04-18] MEDS: APIXABAN 5 MG TAB (ELIQUIS) PO ×2 (05:53→21:02)
[2017-04-18 05:58] LABS: BASO # 0.1 10^3/uL (0.0-0.2); BASO % 0.5 % (0.0-1.0); EOS # 1.3 10^3/uL (0.0-0.50); EOS % 12.3 % (0.0-3.0); HEMATOCRIT 32.7 % (42.0-52.0); HEMOGLOBIN 9.5 g/dl (14.0-18.0); IMMATURE GRANULOCYTE % 0.6 % (0-3.0); LYMPH # 0.6 10^3/uL (1.5-4.5); LYMPH % 5.9 % (24.0-44.0); MEAN CORPUSCULAR HEMOGLOBIN 28.1 pg (27.0-33.0); MEAN CORPUSCULAR HGB CONC 29.1 g/dl (32.0-36.5); MEAN CORPUSCULAR VOLUME 96.7 fl (80.0-96.0); MONO # 0.6 10^3/uL (0.0-0.8); MONO % 5.3 % (0.0-5.0); NEUTROPHILS # 7.8 10^3/uL (1.8-7.7); NEUTROPHILS % 75.4 % (36.0-66.0); PLATELET COUNT, AUTOMATED 234 10^3/uL (150-450); RED BLOOD COUNT 3.38 10^6/uL (4.30-6.10); RED CELL DISTRIBUTION WIDTH 19.3 % (11.5-14.5); WHITE BLOOD COUNT 10.3 10^3/uL (4.0-10.0)
[2017-04-18 06:25] LABS: ALBUMIN 2.3 GM/DL (3.2-5.2); ALBUMIN/GLOBULIN RATIO 0.43 (1.00-1.93); ALKALINE PHOSPHATASE 64 U/L (45-117); ALT/SGPT 14 U/L (12-78); ANION GAP 10 MEQ/L (8-16); AST/SGOT 12 U/L (7-37); BILIRUBIN,TOTAL 0.5 MG/DL (0.2-1.0); BLOOD UREA NITROGEN 27 MG/DL (7-18); CALCIUM LEVEL 8.9 MG/DL (8.8-10.2); CARBON DIOXIDE LEVEL 27 MEQ/L (21-32); CHLORIDE LEVEL 100 MEQ/L (98-107); CREATININE FOR GFR 3.12 MG/DL (0.70-1.30); GLOMERULAR FILTRATION RATE 20.7 (>42); GLUCOSE, FASTING 82 MG/DL (70-100); MAGNESIUM LEVEL 2.7 MG/DL (1.8-2.4); POTASSIUM SERUM 4.3 MEQ/L (3.5-5.1); SODIUM LEVEL 137 MEQ/L (136-145); TOTAL PROTEIN 7.7 GM/DL (6.4-8.2)
[2017-04-18] MEDS: HumaLOG INSULIN (NovoLOG) PER UNIT SC ×4 (07:23→21:00)
[2017-04-18] MEDS: **hydrALAZINE HCL** 25 MG TAB PO ×2 (08:26→21:00)
[2017-04-18] MEDS: LABETALOL 100 MG TAB PO ×2 (08:32→21:01)
[2017-04-18] MEDS: POLYVINYL ALCOHOL OPHTH SOLN 15 ML(LIQUITEARS) OS ×4 (08:32→21:00)
[2017-04-18] MEDS: ISOSORBIDE DIN. (ISORDIL) 20 MG TAB PO ×3 (08:32→21:02)
[2017-04-18] MEDS: cloNIDine 0.1 MG TAB PO ×2 (08:32→21:03)
[2017-04-18] MEDS: ADVAIR HFA 115/21MCG INHALER INH ×2 (08:39→20:56)
[2017-04-18] MEDS: ALBUTEROL SULFATE 2.5 MG/0.5 ML INH NEB SOLN INH ×2 (08:42→20:00)
[2017-04-18 08:52] LABS: VANCOMYCIN RANDOM 23.2 UG/ML
[2017-04-18] MEDS: guaiFENesin DM LIQ 10ML UD PO (09:12)
[2017-04-18] MEDS ORDERED: SLF 3 ML SYR IV (10:45)
[2017-04-18] MEDS: HEPARIN 1,000 UNITS/ML 10ML VIAL (FOR RADIOLOGY& DIALYSIS ONLY) XX (11:00)
[2017-04-18] MEDS: HEPARIN 1,000 UNITS/ML 10ML VIAL (FOR RADIOLOGY& DIALYSIS ONLY) IV (11:00)
[2017-04-18] MEDS: SLF 3 ML SYR IV ×2 (12:18→22:00)
[2017-04-18] MEDS ORDERED: ALBUTEROL SULFATE 2.5 MG/0.5 ML INH NEB SOLN NEB (13:00)
[2017-04-18] MEDS: CHECK TO SEE IF PATIENT IS RECEIVING DIALYSIS TODAY AND REFER TO THE VANCOMYCIN ORDER XX (16:00)
[2017-04-18] MEDS: IPRATROPIUM 0.5MG/ALBUTEROL 2.5MG INH SOL UD 3ML (DUONEB)(J7620) NEB ×2 (17:25→20:56)
[2017-04-18] MEDS: VANCOMYCIN HCL 500 MG in D5W MINI-BAG PLUS 100 ML IV (18:08)
[2017-04-18] MEDS: TERAZOSIN 5 MG CAP PO (21:00)
[2017-04-18] MEDS: MIRTAZAPINE 15 MG TAB PO (21:02)
[2017-04-18] MEDS: SIMVASTATIN 20 MG TAB PO (21:02)
[2017-04-18 21:18] LABS: BEDSIDE GLUCOSE 104 MG/DL (83-110)
[2017-04-19] MEDS: LORazepam 0.5 MG TAB PO ×2 (01:31→08:39)
[2017-04-19] MEDS: IPRATROPIUM 0.5MG/ALBUTEROL 2.5MG INH SOL UD 3ML (DUONEB)(J7620) NEB ×4 (02:07→20:44)
[2017-04-19 05:23] LABS: BASO % 0.5 % (0.0-1.0); EOS % 13.5 % (0.0-3.0); HEMATOCRIT 32.3 % (42.0-52.0); HEMOGLOBIN 9.4 g/dl (14.0-18.0); IMMATURE GRANULOCYTE % 0.7 % (0-3.0); LYMPH % 13.4 % (24.0-44.0); MEAN CORPUSCULAR HEMOGLOBIN 27.8 pg (27.0-33.0); MEAN CORPUSCULAR HGB CONC 29.1 g/dl (32.0-36.5); MEAN CORPUSCULAR VOLUME 95.6 fl (80.0-96.0); MONO # 0.6 10^3/uL (0.0-0.8); MONO % 7.8 % (0.0-5.0); NEUTROPHILS # 4.8 10^3/uL (1.8-7.7); NEUTROPHILS % 64.1 % (36.0-66.0); PLATELET COUNT, AUTOMATED 257 10^3/uL (150-450); RED BLOOD COUNT 3.38 10^6/uL (4.30-6.10); RED CELL DISTRIBUTION WIDTH 19.1 % (11.5-14.5); WHITE BLOOD COUNT 7.6 10^3/uL (4.0-10.0)
[2017-04-19 05:44] LABS: ALBUMIN 2.2 GM/DL (3.2-5.2); ALBUMIN/GLOBULIN RATIO 0.41 (1.00-1.93); ALKALINE PHOSPHATASE 54 U/L (45-117); ALT/SGPT 14 U/L (12-78); ANION GAP 9 MEQ/L (8-16); AST/SGOT 12 U/L (7-37); BILIRUBIN,TOTAL 0.4 MG/DL (0.2-1.0); BLOOD UREA NITROGEN 13 MG/DL (7-18); CALCIUM LEVEL 9.3 MG/DL (8.8-10.2); CARBON DIOXIDE LEVEL 26 MEQ/L (21-32); CHLORIDE LEVEL 102 MEQ/L (98-107); CREATININE FOR GFR 2.08 MG/DL (0.70-1.30); GLUCOSE, FASTING 90 MG/DL (70-100); MAGNESIUM LEVEL 2.2 MG/DL (1.8-2.4); POTASSIUM SERUM 3.7 MEQ/L (3.5-5.1); SODIUM LEVEL 137 MEQ/L (136-145); TOTAL PROTEIN 7.6 GM/DL (6.4-8.2); VANCOMYCIN RANDOM 26.3 UG/ML
[2017-04-19] MEDS: FERROUS SULFATE 325MG TAB PO (06:25)
[2017-04-19] MEDS: SLF 3 ML SYR IV ×3 (06:26→21:19)
[2017-04-19] MEDS: HumaLOG INSULIN (NovoLOG) PER UNIT SC ×4 (07:25→21:00)
[2017-04-19] MEDS: ADVAIR HFA 115/21MCG INHALER INH ×2 (07:47→20:44)
[2017-04-19] MEDS: ALBUTEROL SULFATE 2.5 MG/0.5 ML INH NEB SOLN INH ×2 (07:50→20:00)
[2017-04-19] MEDS: POLYVINYL ALCOHOL OPHTH SOLN 15 ML(LIQUITEARS) OS ×4 (08:38→21:18)
[2017-04-19] MEDS: LABETALOL 100 MG TAB PO ×2 (08:39→21:17)
[2017-04-19] MEDS: (RENVELA) SEVELAMER **CARBONate** 800 MG TAB PO ×3 (08:39→17:06)
[2017-04-19] MEDS: PANTOPRAZOLE 20 MG TAB PO (08:39)
[2017-04-19] MEDS: MULTIVITAMINS/MINERALS THERAP 1 TAB PO (08:39)
[2017-04-19] MEDS: SENOKOT S TAB PO ×2 (08:39→21:16)
[2017-04-19] MEDS: ESCITALOPRAM OXALATE 10 MG TAB (LEXAPRO) PO (08:40)
[2017-04-19] MEDS: VITAMIN D 1,000 INTERNATIONAL UNITS TABLET PO (08:40)
[2017-04-19] MEDS: ISOSORBIDE DIN. (ISORDIL) 20 MG TAB PO ×3 (08:40→21:20)
[2017-04-19] MEDS: APIXABAN 5 MG TAB (ELIQUIS) PO ×2 (08:40→21:17)
[2017-04-19] MEDS: ASPIRIN 81 MG ENTERIC TAB PO (08:40)
[2017-04-19] MEDS: cloNIDine 0.1 MG TAB PO ×2 (08:40→21:18)
[2017-04-19] MEDS: **hydrALAZINE HCL** 25 MG TAB PO ×2 (08:46→21:00)
[2017-04-19] MEDS: MIRALAX *UNIT DOSE* 17GM PACKET PO (08:46)
[2017-04-19] MEDS: DARBEPOETIN 100 MCG/0.5 ML *NON-DIALYSIS* SYRINGE (J0881) SQ (09:29)
[2017-04-19 12:15] LABS: BEDSIDE GLUCOSE 180 MG/DL (83-110)
[2017-04-19] MEDS: CHECK TO SEE IF PATIENT IS RECEIVING DIALYSIS TODAY AND REFER TO THE VANCOMYCIN ORDER XX (15:17)
[2017-04-19 16:59] LABS: BEDSIDE GLUCOSE 144 MG/DL (83-110)
[2017-04-19] MEDS: LevoFLOXacin IV 500 MG in APPROPRIATE DILUENT 1 EA IV (17:06)
[2017-04-19 20:19] LABS: BEDSIDE GLUCOSE 134 MG/DL (83-110)
[2017-04-19] MEDS: TERAZOSIN 5 MG CAP PO (21:17)
[2017-04-19] MEDS: SIMVASTATIN 20 MG TAB PO (21:18)
[2017-04-19] MEDS: MIRTAZAPINE 15 MG TAB PO (21:18)
[2017-04-20] MEDS: IPRATROPIUM 0.5MG/ALBUTEROL 2.5MG INH SOL UD 3ML (DUONEB)(J7620) NEB ×4 (01:46→21:18)
[2017-04-20 05:26] LABS: BASO # 0.1 10^3/uL (0.0-0.2); BASO % 0.7 % (0.0-1.0); EOS # 0.9 10^3/uL (0.0-0.50); EOS % 13.5 % (0.0-3.0); HEMOGLOBIN 9.1 g/dl (14.0-18.0); LYMPH # 1.2 10^3/uL (1.5-4.5); LYMPH % 16.9 % (24.0-44.0); MEAN CORPUSCULAR HEMOGLOBIN 27.7 pg (27.0-33.0); MEAN CORPUSCULAR HGB CONC 29.4 g/dl (32.0-36.5); MEAN CORPUSCULAR VOLUME 94.2 fl (80.0-96.0); MONO # 0.4 10^3/uL (0.0-0.8); MONO % 6.5 % (0.0-5.0); NEUTROPHILS # 4.2 10^3/uL (1.8-7.7); NEUTROPHILS % 61.4 % (36.0-66.0); PLATELET COUNT, AUTOMATED 254 10^3/uL (150-450); RED BLOOD COUNT 3.29 10^6/uL (4.30-6.10); RED CELL DISTRIBUTION WIDTH 18.6 % (11.5-14.5); WHITE BLOOD COUNT 6.8 10^3/uL (4.0-10.0)
[2017-04-20 05:42] LABS: ALBUMIN 2.2 GM/DL (3.2-5.2); ALBUMIN/GLOBULIN RATIO 0.44 (1.00-1.93); ALKALINE PHOSPHATASE 55 U/L (45-117); ALT/SGPT 13 U/L (12-78); ANION GAP 6 MEQ/L (8-16); AST/SGOT 11 U/L (7-37); BILIRUBIN,TOTAL 0.4 MG/DL (0.2-1.0); BLOOD UREA NITROGEN 26 MG/DL (7-18); CALCIUM LEVEL 9.5 MG/DL (8.8-10.2); CARBON DIOXIDE LEVEL 31 MEQ/L (21-32); CHLORIDE LEVEL 99 MEQ/L (98-107); CREATININE FOR GFR 3.21 MG/DL (0.70-1.30); GLUCOSE, FASTING 113 MG/DL (70-100); MAGNESIUM LEVEL 2.3 MG/DL (1.8-2.4); POTASSIUM SERUM 3.9 MEQ/L (3.5-5.1); SODIUM LEVEL 136 MEQ/L (136-145); TOTAL PROTEIN 7.2 GM/DL (6.4-8.2)
[2017-04-20] MEDS: SLF 3 ML SYR IV ×3 (05:46→20:55)
[2017-04-20] MEDS: FERROUS SULFATE 325MG TAB PO (05:46)
[2017-04-20] MEDS: ALBUTEROL SULFATE 2.5 MG/0.5 ML INH NEB SOLN INH ×2 (07:30→21:17)
[2017-04-20] MEDS: ADVAIR HFA 115/21MCG INHALER INH ×2 (08:00→21:00)
[2017-04-20] MEDS: MIRALAX *UNIT DOSE* 17GM PACKET PO (08:02)
[2017-04-20] MEDS: ASPIRIN 81 MG ENTERIC TAB PO (08:02)
[2017-04-20] MEDS: (RENVELA) SEVELAMER **CARBONate** 800 MG TAB PO ×3 (08:03→17:25)
[2017-04-20] MEDS: HumaLOG INSULIN (NovoLOG) PER UNIT SC ×4 (08:03→20:54)
[2017-04-20] MEDS: APIXABAN 5 MG TAB (ELIQUIS) PO ×2 (08:04→20:54)
[2017-04-20] MEDS: MULTIVITAMINS/MINERALS THERAP 1 TAB PO (08:04)
[2017-04-20] MEDS: SENOKOT S TAB PO ×2 (08:04→20:54)
[2017-04-20] MEDS: LORazepam 0.5 MG TAB PO (08:04)
[2017-04-20] MEDS: cloNIDine 0.1 MG TAB PO ×2 (08:05→20:51)
[2017-04-20] MEDS: **hydrALAZINE HCL** 25 MG TAB PO ×2 (08:05→20:54)
[2017-04-20] MEDS: ISOSORBIDE DIN. (ISORDIL) 20 MG TAB PO ×3 (08:07→20:51)
[2017-04-20] MEDS: ESCITALOPRAM OXALATE 10 MG TAB (LEXAPRO) PO (08:07)
[2017-04-20] MEDS: LABETALOL 100 MG TAB PO ×2 (08:08→20:53)
[2017-04-20] MEDS: POLYVINYL ALCOHOL OPHTH SOLN 15 ML(LIQUITEARS) OS ×4 (08:08→20:54)
[2017-04-20] MEDS: VITAMIN D 1,000 INTERNATIONAL UNITS TABLET PO (08:08)
[2017-04-20] MEDS: PANTOPRAZOLE 20 MG TAB PO (08:08)
[2017-04-20 12:34] LABS: BEDSIDE GLUCOSE 117 MG/DL (83-110)
[2017-04-20] MEDS: CHECK TO SEE IF PATIENT IS RECEIVING DIALYSIS TODAY AND REFER TO THE VANCOMYCIN ORDER XX (15:36)
[2017-04-20 17:25] LABS: BEDSIDE GLUCOSE 109 MG/DL (83-110)
[2017-04-20 20:23] LABS: BEDSIDE GLUCOSE 110 MG/DL (83-110)
[2017-04-20] MEDS: MIRTAZAPINE 15 MG TAB PO (20:52)
[2017-04-20] MEDS: TERAZOSIN 5 MG CAP PO (20:53)
[2017-04-20] MEDS: SIMVASTATIN 20 MG TAB PO (20:53)
[2017-04-21] MEDS: IPRATROPIUM 0.5MG/ALBUTEROL 2.5MG INH SOL UD 3ML (DUONEB)(J7620) NEB ×2 (01:15→07:33)
[2017-04-21 05:27] LABS: BASO # 0.1 10^3/uL (0.0-0.2); BASO % 1.1 % (0.0-1.0); EOS # 0.9 10^3/uL (0.0-0.50); EOS % 12.2 % (0.0-3.0); HEMATOCRIT 30.9 % (42.0-52.0); HEMOGLOBIN 9.2 g/dl (14.0-18.0); LYMPH # 1.3 10^3/uL (1.5-4.5); LYMPH % 17.7 % (24.0-44.0); MEAN CORPUSCULAR HEMOGLOBIN 27.7 pg (27.0-33.0); MEAN CORPUSCULAR HGB CONC 29.8 g/dl (32.0-36.5); MEAN CORPUSCULAR VOLUME 93.1 fl (80.0-96.0); MONO # 0.4 10^3/uL (0.0-0.8); MONO % 5.6 % (0.0-5.0); NEUTROPHILS # 4.5 10^3/uL (1.8-7.7); NEUTROPHILS % 62.4 % (36.0-66.0); PLATELET COUNT, AUTOMATED 266 10^3/uL (150-450); RED BLOOD COUNT 3.32 10^6/uL (4.30-6.10); RED CELL DISTRIBUTION WIDTH 18.9 % (11.5-14.5); WHITE BLOOD COUNT 7.1 10^3/uL (4.0-10.0)
[2017-04-21 05:41] LABS: ALBUMIN 2.3 GM/DL (3.2-5.2); ALBUMIN/GLOBULIN RATIO 0.47 (1.00-1.93); ALKALINE PHOSPHATASE 54 U/L (45-117); ALT/SGPT 16 U/L (12-78); ANION GAP 9 MEQ/L (8-16); AST/SGOT 9 U/L (7-37); BILIRUBIN,TOTAL 0.4 MG/DL (0.2-1.0); BLOOD UREA NITROGEN 37 MG/DL (7-18); CALCIUM LEVEL 9.7 MG/DL (8.8-10.2); CARBON DIOXIDE LEVEL 26 MEQ/L (21-32); CHLORIDE LEVEL 100 MEQ/L (98-107); CREATININE FOR GFR 4.18 MG/DL (0.70-1.30); GLOMERULAR FILTRATION RATE 14.8 (>42); GLUCOSE, FASTING 108 MG/DL (70-100); MAGNESIUM LEVEL 2.6 MG/DL (1.8-2.4); POTASSIUM SERUM 4.4 MEQ/L (3.5-5.1); SODIUM LEVEL 135 MEQ/L (136-145); TOTAL PROTEIN 7.2 GM/DL (6.4-8.2); VANCOMYCIN RANDOM 21.7 UG/ML
[2017-04-21] MEDS: SLF 3 ML SYR IV (06:46)
[2017-04-21] MEDS: FERROUS SULFATE 325MG TAB PO (06:47)
[2017-04-21] MEDS: LORazepam 0.5 MG TAB PO (06:47)
[2017-04-21] MEDS: APIXABAN 5 MG TAB (ELIQUIS) PO (06:48)
[2017-04-21] MEDS: PANTOPRAZOLE 20 MG TAB PO (06:48)
[2017-04-21] MEDS: ASPIRIN 81 MG ENTERIC TAB PO (06:48)
[2017-04-21] MEDS: MIRALAX *UNIT DOSE* 17GM PACKET PO (06:48)
[2017-04-21] MEDS: ESCITALOPRAM OXALATE 10 MG TAB (LEXAPRO) PO (06:48)
[2017-04-21] MEDS: POLYVINYL ALCOHOL OPHTH SOLN 15 ML(LIQUITEARS) OS (06:49)
[2017-04-21] MEDS: VITAMIN D 1,000 INTERNATIONAL UNITS TABLET PO (06:49)
[2017-04-21] MEDS: SENOKOT S TAB PO (06:49)
[2017-04-21] MEDS: MULTIVITAMINS/MINERALS THERAP 1 TAB PO (06:50)
[2017-04-21] MEDS: ADVAIR HFA 115/21MCG INHALER INH (07:33)
[2017-04-21] MEDS: ALBUTEROL SULFATE 2.5 MG/0.5 ML INH NEB SOLN INH (07:33)
[2017-04-21] MEDS: **hydrALAZINE HCL** 25 MG TAB PO (07:50)
[2017-04-21] MEDS: ISOSORBIDE DIN. (ISORDIL) 20 MG TAB PO (07:50)
[2017-04-21] MEDS: cloNIDine 0.1 MG TAB PO (07:50)
[2017-04-21] MEDS: LABETALOL 100 MG TAB PO (07:51)
[2017-04-21] MEDS: (RENVELA) SEVELAMER **CARBONate** 800 MG TAB PO (09:55)
[2017-04-21] MEDS: HumaLOG INSULIN (NovoLOG) PER UNIT SC (09:56)
[2017-04-22 11:16] LABS: BEDSIDE GLUCOSE 84 MG/DL (83-110)
== END 2017-04-21 11:14 | DRG 314 ==
LOC: M ED INP 04-17 00:26 → M PCU 04-17 14:30 → M ED 20:08
PROC: 5A1D70Z Performance of Urinary Filtration, Intermittent, Less than 6 Hours Per Day (ICD-10-PCS; principal; 2017-04-17)
DX: T82.7XXA Infection and inflammatory reaction due to other cardiac and vascular devices, implants and grafts, initial encounter (principal); N18.6 End stage renal disease; J96.91 Respiratory failure, unspecified with hypoxia; J18.9 Pneumonia, unspecified organism; I50.32 Chronic diastolic (congestive) heart failure; I13.2 Hypertensive heart and chronic kidney disease with heart failure and with stage 5 chronic kidney disease, or end stage renal disease; L03.114 Cellulitis of left upper limb; J84.10 Pulmonary fibrosis, unspecified; I25.10 Atherosclerotic heart disease of native coronary artery without angina pectoris; E78.5 Hyperlipidemia, unspecified; E11.22 Type 2 diabetes mellitus with diabetic chronic kidney disease; M10.30 Gout due to renal impairment, unspecified site; J44.9 Chronic obstructive pulmonary disease, unspecified; F32.9 Major depressive disorder, single episode, unspecified; N40.0 Benign prostatic hyperplasia without lower urinary tract symptoms; G47.33 Obstructive sleep apnea (adult) (pediatric); D63.1 Anemia in chronic kidney disease; Z99.2 Dependence on renal dialysis; Z99.81 Dependence on supplemental oxygen; Z79.82 Long term (current) use of aspirin; Z79.899 Other long term (current) drug therapy; Z86.711 Personal history of pulmonary embolism; Z90.49 Acquired absence of other specified parts of digestive tract; Z96.653 Presence of artificial knee joint, bilateral; Z87.891 Personal history of nicotine dependence; Y83.1 Surgical operation with implant of artificial internal device as the cause of abnormal reaction of the patient, or of later complication, without mention of misadventure at the time of the procedure; Y95 Nosocomial condition

== ENCOUNTER → 2017-05-14 | Outpatient (CLI) | payer MEDICARE, MEDICAID | LOC: M ST 10:34 | DX: R13.12 Dysphagia, oropharyngeal phase (principal) | CPT/HCPCS: 74230 ==

== ENCOUNTER → 2017-05-29 | Outpatient (REF) | payer MEDICARE, MEDICAID ==
[2017-05-29 21:47] LABS: APPEARANCE, URINE MANUAL TURBID (CLEAR); COLOR, URINE MANUAL RED (YELLOW)
[2017-05-29 21:49] LABS: BILIRUBIN, URINE MANUAL NEGATIVE (NEGATIVE); BLOOD URINE MANUAL POSITIVE (NEGATIVE); GLUCOSE, URINE (UA) MANUAL NEGATIVE (NEGATIVE); KETONE, URINE MANUAL NEGATIVE (NEGATIVE); LEUKOCYTE ESTERASE, URINE MAN POSITIVE (NEGATIVE); MICROSCOPIC INDICATED? MAN YES (NO); NITRITE, URINE MANUAL NEGATIVE (NEGATIVE); PH,URINE MAN 7.5 UNITS (5.0 - 7.0); PROTEIN, URINE MANUAL 3+ mg/dL (NEGATIVE); UROBILINOGEN, URINE MANUAL NORMAL (NORMAL)
[2017-05-29 21:50] LABS: RBC, URINE TNTC /hpf (0-3)
[2017-05-29 21:51] LABS: SQUAMOUS EPITHELIAL CELL URINE SMALL AMOUNT /hpf (SMALL AMT)
[2017-05-29 21:52] LABS: MUCUS, URINE SMALL AMOUNT (NEGATIVE); TRANSITIONAL EPI CELLS, URINE SMALL AMOUNT /hpf
[2017-05-29 21:55] LABS: RENAL EPITHELIAL CELLS, URINE SMALL AMOUNT /hpf
[2017-05-29 21:58] LABS: BACTERIA, URINE NONE SEEN; HYALINE CAST, URINE NONE SEEN /lpf (0-1)
[2017-05-29 21:59] LABS: MICROSCOPIC EXAM PERFORMED
== END ==
LOC: SKLAB7 20:28
DX: R82.99 Other abnormal findings in urine (principal)
CPT/HCPCS: 81000

== ENCOUNTER → 2017-06-17 | Outpatient (REF) | payer MEDICARE, MEDICAID | LOC: SKLAB7 12:50 | DX: G89.18 Other acute postprocedural pain (principal) | CPT/HCPCS: 73564 ==

== ENCOUNTER 2017-07-25 20:59 | Emergency (ER) | payer MEDICARE, MEDICAID ==
[2017-07-25 21:32] LABS: BASO % 0.4 % (0.0-1.0); EOS # 0.3 10^3/uL (0.0-0.50); EOS % 3.1 % (0.0-3.0); HEMATOCRIT 33.6 % (42.0-52.0); HEMOGLOBIN 10.1 g/dl (13.5-17.5); IMMATURE GRANULOCYTE % 0.4 % (0-3.0); LYMPH # 0.7 10^3/uL (1.5-4.5); LYMPH % 7.1 % (24.0-44.0); MEAN CORPUSCULAR HEMOGLOBIN 29.5 pg (27.0-33.0); MEAN CORPUSCULAR HGB CONC 30.1 g/dl (32.0-36.5); MEAN CORPUSCULAR VOLUME 98.2 fl (80.0-96.0); MONO # 0.7 10^3/uL (0.0-0.8); MONO % 6.9 % (0.0-5.0); NEUTROPHILS # 8.6 10^3/uL (1.8-7.7); NEUTROPHILS % 82.1 % (36.0-66.0); PLATELET COUNT, AUTOMATED 208 10^3/uL (150-450); RED BLOOD COUNT 3.42 10^6/uL (4.30-6.10); RED CELL DISTRIBUTION WIDTH 17.6 % (11.5-14.5); WHITE BLOOD COUNT 10.5 10^3/uL (4.0-10.0)
[2017-07-25 21:48] LABS: INR 1.22; PROTHROMBIN TIME 15.6 SECONDS (12.4-14.5)
[2017-07-25 21:49] LABS: PARTIAL THROMBOPLASTIN TIME 43.4 SECONDS (26.8-37.9)
[2017-07-25 22:15] LABS: ALBUMIN 3.1 GM/DL (3.2-5.2); ALBUMIN/GLOBULIN RATIO 0.65 (1.00-1.93); ALKALINE PHOSPHATASE 93 U/L (45-117); ALT/SGPT 20 U/L (12-78); ANION GAP 5 MEQ/L (8-16); AST/SGOT 13 U/L (7-37); BILIRUBIN,DIRECT 0.1 MG/DL (0.0-0.2); BILIRUBIN,TOTAL 0.3 MG/DL (0.2-1.0); BLOOD UREA NITROGEN 14 MG/DL (7-18); CALCIUM LEVEL 8.7 MG/DL (8.8-10.2); CARBON DIOXIDE LEVEL 33 MEQ/L (21-32); CHLORIDE LEVEL 100 MEQ/L (98-107); CPK CREATINE PHOSPHOKINASE 108 U/L (39-308); CREATININE FOR GFR 1.73 MG/DL (0.70-1.30); GLOMERULAR FILTRATION RATE 40.9 (>42); GLUCOSE, FASTING 112 MG/DL (70-100); SODIUM LEVEL 138 MEQ/L (136-145); TOTAL PROTEIN 7.9 GM/DL (6.4-8.2); TROPONIN I < 0.02 NG/ML (< 0.10)
[2017-07-25 22:16] LABS: CK-MB VALUE MASS 10.1 NG/ML (<3.6); MB/CK RELATIVE INDEX 9.35 (< OR =4)
== END 2017-07-25 23:56 | disposition home or self-care (01) ==
LOC: M ED 20:59
DX: R06.02 Shortness of breath (principal); I45.10 Unspecified right bundle-branch block; I51.9 Heart disease, unspecified; E11.9 Type 2 diabetes mellitus without complications; I10 Essential (primary) hypertension; E78.5 Hyperlipidemia, unspecified; N18.9 Chronic kidney disease, unspecified; Z87.891 Personal history of nicotine dependence; Z79.82 Long term (current) use of aspirin; Z79.899 Other long term (current) drug therapy
CPT/HCPCS: 71045

== ENCOUNTER → 2017-07-31 | Outpatient (CLI) | payer MEDICARE, MEDICAID ==
[~2017-07-31] MED LIST changes: -ISOVUE-300 61% 50ML VIAL (Q9967) As Ordered
== END | disposition home or self-care (01) ==
LOC: M IRPRO 11:45
DX: Z45.2 Encounter for adjustment and management of vascular access device (principal); N18.6 End stage renal disease
CPT/HCPCS: 36589

== ENCOUNTER 2017-09-18 18:49 | Inpatient (IN) | payer MEDICARE, MEDICAID ==
[2017-09-18 19:38] LABS: VENOUS BASE EXCESS 2.3 (-2.0-2.0); VENOUS HCO3 28.9 MEQ/L (23.0-27.0); VENOUS O2 SATURATION 89.9 % (60.0-80.0); VENOUS PARTIAL PRESSURE CO2 54.7 mmHg (38.0-50.0); VENOUS PARTIAL PRESSURE O2 54.1 mmHg (30.0-50.0); VENOUS PH 7.341 UNITS (7.330-7.430); VENOUS STANDARD HCO3 26.3 MEQ/L; VENOUS TOTAL CO2 30.6 MEQ/L (24.0-28.0)
[2017-09-18 19:39] LABS: BASO # 0.1 10^3/uL (0.0-0.2); BASO % 0.2 % (0.0-1.0); EOS # 0.1 10^3/uL (0.0-0.50); EOS % 0.6 % (0.0-3.0); HEMATOCRIT 35.7 % (42.0-52.0); HEMOGLOBIN 10.5 g/dl (13.5-17.5); IMMATURE GRANULOCYTE % 0.6 % (0-3.0); LYMPH # 0.4 10^3/uL (1.5-4.5); LYMPH % 1.9 % (24.0-44.0); MEAN CORPUSCULAR HEMOGLOBIN 28.4 pg (27.0-33.0); MEAN CORPUSCULAR HGB CONC 29.4 g/dl (32.0-36.5); MEAN CORPUSCULAR VOLUME 96.5 fl (80.0-96.0); MONO # 0.7 10^3/uL (0.0-0.8); MONO % 3.3 % (0.0-5.0); NEUTROPHILS # 20.1 10^3/uL (1.8-7.7); NEUTROPHILS % 93.4 % (36.0-66.0); PLATELET COUNT, AUTOMATED 255 10^3/uL (150-450); RED CELL DISTRIBUTION WIDTH 19.1 % (11.5-14.5); WHITE BLOOD COUNT 21.6 10^3/uL (4.0-10.0)
[2017-09-18 19:49] LABS: INR 1.21; PROTHROMBIN TIME 15.4 SECONDS (12.1-14.4)
[2017-09-18] MEDS: VANCOMYCIN HCL 1,000 MG, VIAL MATE ADAPTER 1 EACH in D5W 250 ML IV (20:00)
[2017-09-18 20:03] LABS: LACTIC ACID SEPSIS PROTOCOL 1.5 MMOL/L (0.4-2.0)
[2017-09-18 20:03] LABS: ALBUMIN/GLOBULIN RATIO 0.55 (1.00-1.93); ALKALINE PHOSPHATASE 85 U/L (45-117); ALT/SGPT 21 U/L (12-78); ANION GAP 9 MEQ/L (8-16); AST/SGOT 12 U/L (7-37); BILIRUBIN,DIRECT 0.1 MG/DL (0.0-0.2); BILIRUBIN,TOTAL 0.4 MG/DL (0.2-1.0); BLOOD UREA NITROGEN 37 MG/DL (7-18); CALCIUM LEVEL 9.6 MG/DL (8.8-10.2); CARBON DIOXIDE LEVEL 29 MEQ/L (21-32); CHLORIDE LEVEL 100 MEQ/L (98-107); CPK CREATINE PHOSPHOKINASE 67 U/L (39-308); CREATININE FOR GFR 3.12 MG/DL (0.70-1.30); GLOMERULAR FILTRATION RATE 20.6 (>42); GLUCOSE, FASTING 131 MG/DL (70-100); POTASSIUM SERUM 4.5 MEQ/L (3.5-5.1); SODIUM LEVEL 138 MEQ/L (136-145); TOTAL PROTEIN 8.5 GM/DL (6.4-8.2); TROPONIN I 0.05 NG/ML (< 0.10)
[2017-09-18 20:07] LABS: CK-MB VALUE MASS 6.8 NG/ML (<3.6); MB/CK RELATIVE INDEX 10.14 (< OR =4); NT-PRO BNP 13903 PG/ML (<450)
[2017-09-18] MEDS: PIPERACILLIN/TAZOBACTAM SOD 3.375 GM in D5W MINI-BAG PLUS 50 ML IV (20:25)
[2017-09-18] MEDS: cloNIDine 0.1 MG TAB PO (21:00)
[2017-09-18] MEDS ORDERED: ONDANSETRON 4MG/2ML VIAL (J2405) IV (22:15)
[2017-09-18] MEDS ORDERED: ACETAMINOPHEN TAB 650MG DOSE (2X325MG) PO (22:15)
[2017-09-18] MEDS ORDERED: ISOVUE-370 76% 100ML VIAL (Q9967) As Ordered (22:25)
[2017-09-18 22:38] LABS: AMYLASE 61 U/L (25-115); LIPASE 86 U/L (73-393)
[2017-09-18 23:29] LABS: KETONE, URINE AUTO RFX NEGATIVE (NEGATIVE); LEUKOCYTE ESTERASE UR AUTO RFX 3+ (NEGATIVE); NITRITE, URINE AUTO RFX NEGATIVE (NEGATIVE); RBC, URINE AUTO RFX TNTC /HPF (0-3); SPECIFIC GRAVITY UR AUTO RFX 1.015 (1.002-1.035); SQUAM EPITHELIAL CELL UR AURFX 2 /HPF (0-6); TRANSITIONAL EPITHELIAL AU RFX 1 /HPF; WBC, URINE AUTO RFX TNTC /HPF (0-3)
[2017-09-18] MEDS ORDERED: BISACODYL 10 MG SUPP PR (23:30)
[2017-09-18] MEDS ORDERED: LORazepam 0.5 MG TAB PO (23:30)
[2017-09-18] MEDS ORDERED: guaiFENesin SYRUP 200 MG/10 ML UDC PO (23:30)
[2017-09-18] MEDS ORDERED: SODIUM CHLORIDE 0.9% NASAL GEL 15GM (AYR) (23:30)
[2017-09-19] MEDS: AZITHROMYCIN INJ 500 MG, VIAL MATE ADAPTER 1 EACH in D5W 250 ML IV ×2 (00:40→22:32)
[2017-09-19] MEDS: methylPREDNISolone INJ 40 MG/1 ML VIAL (J2920) IV ×4 (00:40→22:33)
[2017-09-19] MEDS: IPRATROPIUM 0.5MG/ALBUTEROL 2.5MG INH SOL UD 3ML (DUONEB)(J7620) NEB ×6 (00:46→20:00)
[2017-09-19] MEDS: APIXABAN 5 MG TAB (ELIQUIS) PO ×3 (01:18→22:31)
[2017-09-19] MEDS: LABETALOL 100 MG TAB PO ×3 (01:19→22:32)
[2017-09-19] MEDS: MIRTAZAPINE 15 MG TAB PO ×2 (01:19→22:30)
[2017-09-19] MEDS: TERAZOSIN 5 MG CAP PO ×2 (01:20→22:30)
[2017-09-19] MEDS ORDERED: GLUCAGON FOR INJ 1 MG VIAL (J1610) SC (04:15)
[2017-09-19] MEDS ORDERED: DEXTROSE 50% 50 ML SYRINGE IV (04:15)
[2017-09-19] MEDS ORDERED: GLUCOSE 4 GM CHEW TABLET PO (04:15)
[2017-09-19 05:55] LABS: BASO % 0.2 % (0.0-1.0); IMMATURE GRANULOCYTE % 0.7 % (0-3.0); LYMPH # 0.3 10^3/uL (1.5-4.5); LYMPH % 2.1 % (24.0-44.0); MEAN CORPUSCULAR HGB CONC 29.4 g/dl (32.0-36.5); MEAN CORPUSCULAR VOLUME 95.2 fl (80.0-96.0); MONO # 0.1 10^3/uL (0.0-0.8); MONO % 0.9 % (0.0-5.0); NEUTROPHILS # 15.6 10^3/uL (1.8-7.7); NEUTROPHILS % 96.1 % (36.0-66.0); PLATELET COUNT, AUTOMATED 220 10^3/uL (150-450); RED BLOOD COUNT 3.57 10^6/uL (4.30-6.10); RED CELL DISTRIBUTION WIDTH 18.9 % (11.5-14.5); WHITE BLOOD COUNT 16.2 10^3/uL (4.0-10.0)
[2017-09-19 06:07] LABS: ESTIMATED AVERAGE GLUCOSE 85 MG/DL (60-110); HEMOGLOBIN A1c 4.6 %
[2017-09-19 06:12] LABS: ANION GAP 10 MEQ/L (8-16); BLOOD UREA NITROGEN 46 MG/DL (7-18); CALCIUM LEVEL 9.2 MG/DL (8.8-10.2); CARBON DIOXIDE LEVEL 27 MEQ/L (21-32); CHLORIDE LEVEL 99 MEQ/L (98-107); CREATININE FOR GFR 3.43 MG/DL (0.70-1.30); GLOMERULAR FILTRATION RATE 18.5 (>42); GLUCOSE, FASTING 152 MG/DL (70-100); SODIUM LEVEL 136 MEQ/L (136-145)
[2017-09-19] MEDS: cefTRIAXone SOD 1 GM in D5W MINI-BAG PLUS 50 ML IV (06:45)
[2017-09-19] MEDS: cloNIDine 0.1 MG TAB PO ×2 (06:47→22:31)
[2017-09-19] MEDS: HumaLOG INSULIN (NovoLOG) PER UNIT SC ×4 (07:00→21:00)
[2017-09-19] MEDS: **hydrALAZINE HCL** 25 MG TAB PO (07:11)
[2017-09-19] MEDS: LORazepam 0.5 MG TAB PO (07:12)
[2017-09-19] MEDS: ESCITALOPRAM OXALATE 10 MG TAB (LEXAPRO) PO (07:12)
[2017-09-19] MEDS: SENOKOT S TAB PO ×2 (07:12→22:30)
[2017-09-19] MEDS: PANTOPRAZOLE 40MG TAB (PROTONIX) PO (07:12)
[2017-09-19] MEDS: FERROUS SULFATE 325MG TAB PO (07:13)
[2017-09-19] MEDS: VITAMIN D 1,000 INTERNATIONAL UNITS TABLET PO (07:14)
[2017-09-19] MEDS: ASPIRIN 81 MG ENTERIC TAB PO (07:14)
[2017-09-19] MEDS: ISOSORBIDE MON. (ISMO,MONOKET) 20 MG TAB PO ×2 (07:15→16:00)
[2017-09-19] MEDS: MIRALAX *UNIT DOSE* 17GM PACKET PO (07:15)
[2017-09-19] MEDS: NS 1,000 ML IV (07:45)
[2017-09-19] MEDS: ADVAIR HFA 115/21MCG INHALER INH ×2 (08:11→20:27)
[2017-09-19] MEDS ORDERED: PANTOPRAZOLE 20 MG TAB PO (09:00)
[2017-09-19] MEDS: LIDOCAINE 1% SDV 5 ML VIAL SQ (10:00)
[2017-09-19] MEDS: HEPARIN 1,000 UNITS/ML 10ML VIAL (FOR RADIOLOGY& DIALYSIS ONLY) IV (10:00)
[2017-09-19 12:54] LABS: BEDSIDE GLUCOSE 126 MG/DL (83-110)
[2017-09-19 16:51] LABS: BEDSIDE GLUCOSE 162 MG/DL (83-110)
[2017-09-19] MEDS: SIMVASTATIN 20 MG TAB PO (22:32)
[2017-09-19 22:38] LABS: BEDSIDE GLUCOSE 208 MG/DL (83-110)
[2017-09-20] MEDS: IPRATROPIUM 0.5MG/ALBUTEROL 2.5MG INH SOL UD 3ML (DUONEB)(J7620) NEB ×6 (00:57→23:43)
[2017-09-20 05:55] LABS: BASO % 0.1 % (0.0-1.0); IMMATURE GRANULOCYTE % 0.6 % (0-3.0); LYMPH # 0.4 10^3/uL (1.5-4.5); LYMPH % 3.5 % (24.0-44.0); MEAN CORPUSCULAR HGB CONC 30.3 g/dl (32.0-36.5); MEAN CORPUSCULAR VOLUME 92.4 fl (80.0-96.0); MONO # 0.2 10^3/uL (0.0-0.8); MONO % 1.6 % (0.0-5.0); NEUTROPHILS # 9.6 10^3/uL (1.8-7.7); NEUTROPHILS % 94.2 % (36.0-66.0); PLATELET COUNT, AUTOMATED 242 10^3/uL (150-450); RED BLOOD COUNT 3.57 10^6/uL (4.30-6.10); RED CELL DISTRIBUTION WIDTH 18.7 % (11.5-14.5); WHITE BLOOD COUNT 10.2 10^3/uL (4.0-10.0)
[2017-09-20] MEDS: cefTRIAXone SOD 1 GM in D5W MINI-BAG PLUS 50 ML IV (06:16)
[2017-09-20] MEDS: methylPREDNISolone INJ 40 MG/1 ML VIAL (J2920) IV ×3 (06:18→21:39)
[2017-09-20 06:22] LABS: ALBUMIN 2.9 GM/DL (3.2-5.2); ALBUMIN/GLOBULIN RATIO 0.56 (1.00-1.93); ALKALINE PHOSPHATASE 72 U/L (45-117); ALT/SGPT 20 U/L (12-78); ANION GAP 7 MEQ/L (8-16); AST/SGOT 11 U/L (7-37); BILIRUBIN,TOTAL 0.4 MG/DL (0.2-1.0); BLOOD UREA NITROGEN 48 MG/DL (7-18); CALCIUM LEVEL 9.2 MG/DL (8.8-10.2); CARBON DIOXIDE LEVEL 31 MEQ/L (21-32); CHLORIDE LEVEL 95 MEQ/L (98-107); CREATININE FOR GFR 2.77 MG/DL (0.70-1.30); GLOMERULAR FILTRATION RATE 23.7 (>42); GLUCOSE, FASTING 137 MG/DL (70-100); POTASSIUM SERUM 4.6 MEQ/L (3.5-5.1); SODIUM LEVEL 133 MEQ/L (136-145); TOTAL PROTEIN 8.1 GM/DL (6.4-8.2)
[2017-09-20] MEDS: ADVAIR HFA 115/21MCG INHALER INH ×2 (08:19→20:21)
[2017-09-20] MEDS: HumaLOG INSULIN (NovoLOG) PER UNIT SC ×4 (08:44→20:49)
[2017-09-20] MEDS: PANTOPRAZOLE 40MG TAB (PROTONIX) PO (08:45)
[2017-09-20] MEDS: MIRALAX *UNIT DOSE* 17GM PACKET PO (08:45)
[2017-09-20] MEDS: FERROUS SULFATE 325MG TAB PO (08:46)
[2017-09-20] MEDS: SENOKOT S TAB PO ×2 (08:46→20:48)
[2017-09-20] MEDS: ASPIRIN 81 MG ENTERIC TAB PO (08:46)
[2017-09-20] MEDS: APIXABAN 5 MG TAB (ELIQUIS) PO ×2 (08:46→20:48)
[2017-09-20] MEDS: cloNIDine 0.1 MG TAB PO ×2 (08:47→20:48)
[2017-09-20] MEDS: ISOSORBIDE MON. (ISMO,MONOKET) 20 MG TAB PO ×2 (08:47→17:01)
[2017-09-20] MEDS: VITAMIN D 1,000 INTERNATIONAL UNITS TABLET PO (08:47)
[2017-09-20] MEDS: **hydrALAZINE HCL** 25 MG TAB PO (08:48)
[2017-09-20] MEDS: ESCITALOPRAM OXALATE 10 MG TAB (LEXAPRO) PO (08:48)
[2017-09-20] MEDS: LORazepam 0.5 MG TAB PO (08:50)
[2017-09-20] MEDS: LABETALOL 100 MG TAB PO ×2 (08:50→20:48)
[2017-09-20 12:00] LABS: BEDSIDE GLUCOSE 186 MG/DL (83-110)
[2017-09-20 17:14] LABS: BEDSIDE GLUCOSE 132 MG/DL (83-110)
[2017-09-20 20:18] LABS: BEDSIDE GLUCOSE 214 MG/DL (83-110)
[2017-09-20] MEDS: MIRTAZAPINE 15 MG TAB PO (20:48)
[2017-09-20] MEDS: SIMVASTATIN 20 MG TAB PO (20:48)
[2017-09-20] MEDS: TERAZOSIN 5 MG CAP PO (20:49)
[2017-09-20] MEDS: AZITHROMYCIN INJ 500 MG, VIAL MATE ADAPTER 1 EACH in D5W 250 ML IV (21:39)
[2017-09-21] MEDS: methylPREDNISolone INJ 40 MG/1 ML VIAL (J2920) IV ×2 (05:04→14:24)
[2017-09-21] MEDS: cefTRIAXone SOD 1 GM in D5W MINI-BAG PLUS 50 ML IV (05:04)
[2017-09-21 05:57] LABS: HEMATOCRIT 31.1 % (42.0-52.0); HEMOGLOBIN 9.4 g/dl (13.5-17.5); LYMPH # 0.4 10^3/uL (1.5-4.5); MEAN CORPUSCULAR HGB CONC 30.2 g/dl (32.0-36.5); MEAN CORPUSCULAR VOLUME 92.6 fl (80.0-96.0); MONO # 0.2 10^3/uL (0.0-0.8); MONO % 2.1 % (0.0-5.0); NEUTROPHILS # 7.5 10^3/uL (1.8-7.7); NEUTROPHILS % 91.9 % (36.0-66.0); PLATELET COUNT, AUTOMATED 241 10^3/uL (150-450); RED BLOOD COUNT 3.36 10^6/uL (4.30-6.10); RED CELL DISTRIBUTION WIDTH 18.6 % (11.5-14.5); WHITE BLOOD COUNT 8.2 10^3/uL (4.0-10.0)
[2017-09-21 06:28] LABS: ALBUMIN 2.7 GM/DL (3.2-5.2); ALBUMIN/GLOBULIN RATIO 0.55 (1.00-1.93); ALKALINE PHOSPHATASE 62 U/L (45-117); ALT/SGPT 19 U/L (12-78); ANION GAP 12 MEQ/L (8-16); AST/SGOT 9 U/L (7-37); BILIRUBIN,TOTAL 0.3 MG/DL (0.2-1.0); BLOOD UREA NITROGEN 73 MG/DL (7-18); CALCIUM LEVEL 8.7 MG/DL (8.8-10.2); CARBON DIOXIDE LEVEL 26 MEQ/L (21-32); CHLORIDE LEVEL 91 MEQ/L (98-107); CREATININE FOR GFR 3.76 MG/DL (0.70-1.30); GLOMERULAR FILTRATION RATE 16.6 (>42); GLUCOSE, FASTING 151 MG/DL (70-100); MAGNESIUM LEVEL 2.2 MG/DL (1.8-2.4); SODIUM LEVEL 129 MEQ/L (136-145); TOTAL PROTEIN 7.6 GM/DL (6.4-8.2)
[2017-09-21 06:32] LABS: POTASSIUM SERUM 5.3 MEQ/L (3.5-5.1)
[2017-09-21] MEDS: HumaLOG INSULIN (NovoLOG) PER UNIT SC ×4 (07:29→21:00)
[2017-09-21] MEDS: ADVAIR HFA 115/21MCG INHALER INH ×2 (07:38→20:12)
[2017-09-21] MEDS: IPRATROPIUM 0.5MG/ALBUTEROL 2.5MG INH SOL UD 3ML (DUONEB)(J7620) NEB ×4 (07:42→20:00)
[2017-09-21] MEDS: **hydrALAZINE HCL** 25 MG TAB PO (09:11)
[2017-09-21] MEDS: ASPIRIN 81 MG ENTERIC TAB PO (09:11)
[2017-09-21] MEDS: VITAMIN D 1,000 INTERNATIONAL UNITS TABLET PO (09:11)
[2017-09-21] MEDS: MIRALAX *UNIT DOSE* 17GM PACKET PO (09:11)
[2017-09-21] MEDS: PANTOPRAZOLE 40MG TAB (PROTONIX) PO (09:11)
[2017-09-21] MEDS: ESCITALOPRAM OXALATE 10 MG TAB (LEXAPRO) PO (09:12)
[2017-09-21] MEDS: APIXABAN 5 MG TAB (ELIQUIS) PO ×2 (09:12→21:27)
[2017-09-21] MEDS: SENOKOT S TAB PO ×2 (09:12→21:27)
[2017-09-21] MEDS: LORazepam 0.5 MG TAB PO (09:12)
[2017-09-21] MEDS: ISOSORBIDE MON. (ISMO,MONOKET) 20 MG TAB PO ×2 (09:12→16:47)
[2017-09-21] MEDS: cloNIDine 0.1 MG TAB PO ×2 (09:13→21:28)
[2017-09-21] MEDS: FERROUS SULFATE 325MG TAB PO (09:13)
[2017-09-21 11:58] LABS: BEDSIDE GLUCOSE 178 MG/DL (83-110)
[2017-09-21 16:56] LABS: BEDSIDE GLUCOSE 143 MG/DL (83-110)
[2017-09-21] MEDS: TERAZOSIN 5 MG CAP PO (21:27)
[2017-09-21] MEDS: MIRTAZAPINE 15 MG TAB PO (21:28)
[2017-09-21] MEDS: SIMVASTATIN 20 MG TAB PO (21:28)
[2017-09-21] MEDS: LABETALOL 100 MG TAB PO (21:28)
[2017-09-21] MEDS: AZITHROMYCIN INJ 500 MG, VIAL MATE ADAPTER 1 EACH in D5W 250 ML IV (21:29)
[2017-09-21 21:42] LABS: BEDSIDE GLUCOSE 189 MG/DL (83-110)
[2017-09-22] MEDS: IPRATROPIUM 0.5MG/ALBUTEROL 2.5MG INH SOL UD 3ML (DUONEB)(J7620) NEB ×5 (04:52→19:41)
[2017-09-22 05:24] LABS: BASO % 0.1 % (0.0-1.0); EOS % 0.1 % (0.0-3.0); HEMATOCRIT 31.4 % (42.0-52.0); HEMOGLOBIN 9.6 g/dl (13.5-17.5); IMMATURE GRANULOCYTE % 0.7 % (0-3.0); LYMPH # 0.7 10^3/uL (1.5-4.5); LYMPH % 8.7 % (24.0-44.0); MEAN CORPUSCULAR HEMOGLOBIN 27.7 pg (27.0-33.0); MEAN CORPUSCULAR HGB CONC 30.6 g/dl (32.0-36.5); MEAN CORPUSCULAR VOLUME 90.8 fl (80.0-96.0); MONO # 0.4 10^3/uL (0.0-0.8); MONO % 4.6 % (0.0-5.0); NEUTROPHILS # 7.1 10^3/uL (1.8-7.7); NEUTROPHILS % 85.8 % (36.0-66.0); PLATELET COUNT, AUTOMATED 224 10^3/uL (150-450); RED BLOOD COUNT 3.46 10^6/uL (4.30-6.10); RED CELL DISTRIBUTION WIDTH 18.4 % (11.5-14.5); WHITE BLOOD COUNT 8.3 10^3/uL (4.0-10.0)
[2017-09-22 05:53] LABS: ALBUMIN 2.8 GM/DL (3.2-5.2); ALBUMIN/GLOBULIN RATIO 0.64 (1.00-1.93); ALKALINE PHOSPHATASE 61 U/L (45-117); ALT/SGPT 20 U/L (12-78); ANION GAP 14 MEQ/L (8-16); AST/SGOT 8 U/L (7-37); BILIRUBIN,TOTAL 0.3 MG/DL (0.2-1.0); BLOOD UREA NITROGEN 88 MG/DL (7-18); CALCIUM LEVEL 8.3 MG/DL (8.8-10.2); CARBON DIOXIDE LEVEL 24 MEQ/L (21-32); CHLORIDE LEVEL 89 MEQ/L (98-107); CREATININE FOR GFR 4.52 MG/DL (0.70-1.30); GLOMERULAR FILTRATION RATE 13.5 (>42); GLUCOSE, FASTING 108 MG/DL (70-100); SODIUM LEVEL 127 MEQ/L (136-145); TOTAL PROTEIN 7.2 GM/DL (6.4-8.2)
[2017-09-22] MEDS: cefTRIAXone SOD 1 GM in D5W MINI-BAG PLUS 50 ML IV (05:57)
[2017-09-22 05:58] LABS: POTASSIUM SERUM 5.3 MEQ/L (3.5-5.1)
[2017-09-22] MEDS: predniSONE 20 MG TAB PO (06:45)
[2017-09-22] MEDS: PANTOPRAZOLE 40MG TAB (PROTONIX) PO (06:45)
[2017-09-22] MEDS: ESCITALOPRAM OXALATE 10 MG TAB (LEXAPRO) PO (06:45)
[2017-09-22] MEDS: APIXABAN 5 MG TAB (ELIQUIS) PO ×2 (06:46→20:11)
[2017-09-22] MEDS: FERROUS SULFATE 325MG TAB PO (06:46)
[2017-09-22] MEDS: cloNIDine 0.1 MG TAB PO ×2 (06:46→20:12)
[2017-09-22] MEDS: VITAMIN D 1,000 INTERNATIONAL UNITS TABLET PO (06:46)
[2017-09-22] MEDS: ASPIRIN 81 MG ENTERIC TAB PO (06:46)
[2017-09-22] MEDS: **hydrALAZINE HCL** 25 MG TAB PO (06:47)
[2017-09-22] MEDS: SENOKOT S TAB PO ×2 (06:47→20:11)
[2017-09-22] MEDS: MIRALAX *UNIT DOSE* 17GM PACKET PO (06:48)
[2017-09-22] MEDS: ISOSORBIDE MON. (ISMO,MONOKET) 20 MG TAB PO ×2 (06:48→16:21)
[2017-09-22] MEDS: LABETALOL 100 MG TAB PO ×2 (07:03→20:13)
[2017-09-22] MEDS: LORazepam 0.5 MG TAB PO (07:04)
[2017-09-22] MEDS: HumaLOG INSULIN (NovoLOG) PER UNIT SC ×4 (07:21→20:13)
[2017-09-22] MEDS: ADVAIR HFA 115/21MCG INHALER INH ×2 (07:56→19:41)
[2017-09-22] MEDS: LIDOCAINE 1% SDV 5 ML VIAL SQ (14:00)
[2017-09-22] MEDS: HEPARIN 1,000 UNITS/ML 10ML VIAL (FOR RADIOLOGY& DIALYSIS ONLY) IV (14:00)
[2017-09-22 17:20] LABS: BEDSIDE GLUCOSE 159 MG/DL (83-110)
[2017-09-22 19:50] LABS: BEDSIDE GLUCOSE 215 MG/DL (83-110)
[2017-09-22] MEDS: SIMVASTATIN 20 MG TAB PO (20:11)
[2017-09-22] MEDS: MIRTAZAPINE 15 MG TAB PO (20:12)
[2017-09-22] MEDS: TERAZOSIN 5 MG CAP PO (20:53)
[2017-09-22] MEDS: AZITHROMYCIN INJ 500 MG, VIAL MATE ADAPTER 1 EACH in D5W 250 ML IV (23:04)
[2017-09-23] MEDS: IPRATROPIUM 0.5MG/ALBUTEROL 2.5MG INH SOL UD 3ML (DUONEB)(J7620) NEB ×2 (00:23→08:00)
[2017-09-23] MEDS: cefTRIAXone SOD 1 GM in D5W MINI-BAG PLUS 50 ML IV (06:10)
[2017-09-23 06:55] LABS: EOS % 0.1 % (0.0-3.0); HEMATOCRIT 29.8 % (42.0-52.0); HEMOGLOBIN 9.2 g/dl (13.5-17.5); IMMATURE GRANULOCYTE % 0.6 % (0-3.0); LYMPH # 0.8 10^3/uL (1.5-4.5); LYMPH % 9.2 % (24.0-44.0); MEAN CORPUSCULAR HEMOGLOBIN 28.2 pg (27.0-33.0); MEAN CORPUSCULAR HGB CONC 30.9 g/dl (32.0-36.5); MEAN CORPUSCULAR VOLUME 91.4 fl (80.0-96.0); MONO # 0.5 10^3/uL (0.0-0.8); MONO % 5.9 % (0.0-5.0); NEUTROPHILS % 84.2 % (36.0-66.0); PLATELET COUNT, AUTOMATED 231 10^3/uL (150-450); RED BLOOD COUNT 3.26 10^6/uL (4.30-6.10); RED CELL DISTRIBUTION WIDTH 18.2 % (11.5-14.5); WHITE BLOOD COUNT 8.4 10^3/uL (4.0-10.0)
[2017-09-23 07:25] LABS: ALBUMIN 2.7 GM/DL (3.2-5.2); ALBUMIN/GLOBULIN RATIO 0.63 (1.00-1.93); ALKALINE PHOSPHATASE 61 U/L (45-117); ALT/SGPT 19 U/L (12-78); ANION GAP 11 MEQ/L (8-16); AST/SGOT 9 U/L (7-37); BILIRUBIN,TOTAL 0.3 MG/DL (0.2-1.0); BLOOD UREA NITROGEN 56 MG/DL (7-18); CALCIUM LEVEL 8.1 MG/DL (8.8-10.2); CARBON DIOXIDE LEVEL 26 MEQ/L (21-32); CHLORIDE LEVEL 93 MEQ/L (98-107); CREATININE FOR GFR 3.19 MG/DL (0.70-1.30); GLOMERULAR FILTRATION RATE 20.1 (>42); GLUCOSE, FASTING 97 MG/DL (70-100); POTASSIUM SERUM 4.5 MEQ/L (3.5-5.1); SODIUM LEVEL 130 MEQ/L (136-145)
[2017-09-23] MEDS: HumaLOG INSULIN (NovoLOG) PER UNIT SC (07:30)
[2017-09-23] MEDS: ADVAIR HFA 115/21MCG INHALER INH (08:10)
[2017-09-23] MEDS: ISOSORBIDE MON. (ISMO,MONOKET) 20 MG TAB PO (09:00)
[2017-09-23] MEDS: predniSONE 20 MG TAB PO (09:51)
[2017-09-23] MEDS: ESCITALOPRAM OXALATE 10 MG TAB (LEXAPRO) PO (09:51)
[2017-09-23] MEDS: VITAMIN D 1,000 INTERNATIONAL UNITS TABLET PO (09:51)
[2017-09-23] MEDS: FERROUS SULFATE 325MG TAB PO (09:51)
[2017-09-23] MEDS: APIXABAN 5 MG TAB (ELIQUIS) PO (09:51)
[2017-09-23] MEDS: ASPIRIN 81 MG ENTERIC TAB PO (09:51)
[2017-09-23] MEDS: PANTOPRAZOLE 40MG TAB (PROTONIX) PO (09:52)
[2017-09-23] MEDS: cloNIDine 0.1 MG TAB PO (09:52)
[2017-09-23] MEDS: SENOKOT S TAB PO (09:52)
[2017-09-23] MEDS: MIRALAX *UNIT DOSE* 17GM PACKET PO (09:53)
[2017-09-23] MEDS: LORazepam 0.5 MG TAB PO (09:53)
[2017-09-23] MEDS: LABETALOL 100 MG TAB PO (09:53)
[2017-09-23] MEDS: **hydrALAZINE HCL** 25 MG TAB PO (09:53)
== END 2017-09-23 11:30 | DRG 190 ==
LOC: M PCU 09-19 00:07 → M MS4PR 09-22 16:34 → M ED 18:49 → M ED INP 22:11
PROC: 5A1D70Z Performance of Urinary Filtration, Intermittent, Less than 6 Hours Per Day (ICD-10-PCS; principal; 2017-09-19)
DX: J44.1 Chronic obstructive pulmonary disease with (acute) exacerbation (principal); N18.6 End stage renal disease; J96.10 Chronic respiratory failure, unspecified whether with hypoxia or hypercapnia; I42.9 Cardiomyopathy, unspecified; I13.2 Hypertensive heart and chronic kidney disease with heart failure and with stage 5 chronic kidney disease, or end stage renal disease; N39.0 Urinary tract infection, site not specified; I50.32 Chronic diastolic (congestive) heart failure; N25.81 Secondary hyperparathyroidism of renal origin; E87.1 Hypo-osmolality and hyponatremia; Z66 Do not resuscitate; E11.22 Type 2 diabetes mellitus with diabetic chronic kidney disease; F32.9 Major depressive disorder, single episode, unspecified; G47.33 Obstructive sleep apnea (adult) (pediatric); K21.9 Gastro-esophageal reflux disease without esophagitis; N40.0 Benign prostatic hyperplasia without lower urinary tract symptoms; J84.10 Pulmonary fibrosis, unspecified; E78.5 Hyperlipidemia, unspecified; A08.4 Viral intestinal infection, unspecified; B95.62 Methicillin resistant Staphylococcus aureus infection as the cause of diseases classified elsewhere; D63.1 Anemia in chronic kidney disease; E55.9 Vitamin D deficiency, unspecified; E87.5 Hyperkalemia; M19.90 Unspecified osteoarthritis, unspecified site; Z86.711 Personal history of pulmonary embolism; Z86.14 Personal history of Methicillin resistant Staphylococcus aureus infection; Z99.2 Dependence on renal dialysis; Z99.81 Dependence on supplemental oxygen; Z79.01 Long term (current) use of anticoagulants; Z96.653 Presence of artificial knee joint, bilateral; Z90.49 Acquired absence of other specified parts of digestive tract; Z79.82 Long term (current) use of aspirin; Z79.899 Other long term (current) drug therapy